=== PATIENT | male | born 1950 | race Caucasian/White ===

== ENCOUNTER → 2018-04-17 14:32 | Outpatient (CLI) | payer MEDICARE, SELFPAY ==
--- NOTE | 2018-04-17 14:35 | ECHOD_ITS ---
Reason For Study: arrhythmia Procedure This was a 2D Doppler, Color Flow transthoracic echocardiogram. The exam was of fair technical quality due to diminished acoustic windows. The study was technically difficult. Exam performed in department. Left Ventricle Normal LV size. Apical false tendon noted. Mild segmental systolic dysfunction (see wall motion). The estimated ejection fraction is 45 %. There is evidence of diastolic dysfunction. Infero-Basal: Severely Hypokinetic. Basal inferoseptal: Severely Hypokinetic. Mid-Inferior: Severely Hypokinetic. Mid-inferoseptal : Severly Hypokinetic. Inferior [place] : Not visualized. Septal [place] : Akinetic. Right Ventricle Normal RV size. ICD or pacer leads identified within the right ventricle. Normal systolic function. Atria The left atrium is moderately enlarged. Normal right atrium. ICD or pacer leads identified within the right atrium. No doppler evidence for ASD. Mitral Valve There is mild mitral annular calcification. Mild papillary muscle dysfunction of the mitral valve. Mild-Moderate (1-2+) mitral valve insufficiency. Tricuspid Valve Normal tricuspid valve. Moderate (2+) tricuspid valve insufficiency. Right ventricular systolic pressure estimated to be 28 mmHg. Aortic Valve Trisinus/trileaflet aortic valve. Mild focal aortic valve thickening. Pulmonic Valve The pulmonic valve is not well visualized. Mild (1+) pulmonic valve insufficiency. Great Vessels Normal sized aortic root. Pericardium/Pleural No pericardial effusion. MMode/2D Measurements & Calculations LVIDd: 5.1 cm IVSd: 0.96 cm Ao root diam: 3.6 cm LVIDs: 3.5 cm LVPWd: 1.1 cm LA dimension: 4.4 cm RVDd: 2.9 cm FS: 30.0 % LAV(MOD-bp): 77.2 ml LA A4 area: 24.8 cm2 RA A4 area: 15.9 cm2 LAV(MOD-bp) Indexed: 38.7 ml/m2 LAV(MOD-sp2): 72.3 ml LAV(MOD-sp4): 80.7 ml Doppler Measurements & Calculations MV E max gibran: 85.1 cm/sec Lat Peak E' Gibran: 10.1 cm/sec Med Peak E' Gibran: 5.0 cm/sec MV A max gibran: 42.2 cm/sec E/E' lat: 8.4 E/E' med: 16.9 MV E/A: 2.0 Ao V2 max: 90.8 cm/sec LV V1 max: 76.0 cm/sec PA V2 max: 67.2 cm/sec Ao max P.3 mmHg LV V1 max P.3 mmHg TR max gibran: 247.3 cm/sec TR max P.5 mmHg Interpretation Summary The study was technically difficult. Mild segmental systolic dysfunction (see wall motion). The estimated ejection fraction is 45 %. Apical false tendon noted. The left atrium is moderately enlarged. There is mild mitral annular calcification. Mild papillary muscle dysfunction of the mitral valve. Mild-Moderate (1-2+) mitral valve insufficiency. Moderate (2+) tricuspid valve insufficiency. Mild focal aortic valve thickening. Mild (1+) pulmonic valve insufficiency. Right ventricular systolic pressure estimated to be 28 mmHg. There is evidence of diastolic dysfunction. ICD or pacer leads identified within the right atrium ICD or pacer leads identified within the right ventricle. Ordering Physician: Trey Richey Referring Physician: Tio Villalba Performed By: Lynne Paniagua, JYOTHI, RVT
== END ==
PROVIDERS: Family Provider Family Medicine; PCP Family Medicine; Visit Provider Internal Medicine Cardiovascular Disease
DX: I49.01 Ventricular fibrillation (principal); I46.9 Cardiac arrest, cause unspecified; I25.10 Atherosclerotic heart disease of native coronary artery without angina pectoris; Z95.810 Presence of automatic (implantable) cardiac defibrillator; Z95.1 Presence of aortocoronary bypass graft
CPT/HCPCS: 93306

== ENCOUNTER → 2018-05-30 17:07 | Outpatient (CLI) | payer MEDICARE, SELFPAY ==
[2018-05-30 18:14] LABS: Anion Gap 6 (5-15); BUN 18 mg/dL (7-18); BUN/Creat Ratio 15.9 RATIO (10-20); Calcium,Total 10.3 mg/dL (8.5-10.1); Chloride 104 mmol/L (98-107); Creatinine, Serum 1.13 mg/dL (0.70-1.30); EST Glomerular Filtration Rate 69 mL/min (>60); Est Glom Filt Rate - Afr Amer 84 mL/min (>60); Glucose 101 mg/dL (74-106); Potassium 4.6 mmol/L (3.5-5.1); Sodium Level 139 mmol/L (136-145)
[2018-05-30 18:23] LABS: BNP,B-Type NATRIURETIC PEPTIDE 582.8 pg/mL (0-100)
== END ==
PROVIDERS: Family Provider Family Medicine; PCP Family Medicine; Visit Provider Nurse Practitioner Family
DX: R06.09 Other forms of dyspnea (principal); I25.10 Atherosclerotic heart disease of native coronary artery without angina pectoris; R00.1 Bradycardia, unspecified; I10 Essential (primary) hypertension; E78.5 Hyperlipidemia, unspecified; Z95.810 Presence of automatic (implantable) cardiac defibrillator; Z95.1 Presence of aortocoronary bypass graft
CPT/HCPCS: 71046; 80048; 83880

== ENCOUNTER → 2018-07-27 12:27 | Outpatient (CLI) | payer MEDICARE, SELFPAY ==
--- NOTE | 2018-07-27 14:39 | PFTCOMP ---
COMPLETE PULMONARY FUNCTION TEST INTERPRETATION Brief HPI: Patient is a 67 year old male, currently under the care of Dr. Richey, who presents to [facility] for complete pulmonary function tests secondary to diagnosis of high risk med use. Respiratory therapist reports good effort and reproducible results. Interpretation: Forced expiration spirometry shows no large airways obstructive ventilatory defect with an FEV1 of 65% predicted. There is a significant bronchodilator response in FVC by strict ATS criteria. However, patient did have significant longer exhalation postbronchodilator. Spirograms are of good quality and plateau normally. The respiratory flow volume loop shows a normal pattern. Lung volumes by body plethysmography show a decreased total lung capacity at 5.12 L, 78% predicted. All other lung volumes are within normal limits. Diffusion capacity by carbon monoxide is decreased at 61% predicted. The airway resistance is elevated. No previous pulmonary function tests were available for review. Impression: Mild restrictive ventilatory defect with a symmetric reduction in diffusing capacity. Patient will need serial monitoring with high risk med use.
--- NOTE | 2018-07-27 14:42 | PFTCOMP_ITS ---
COMPLETE PULMONARY FUNCTION TEST INTERPRETATION Brief HPI: Patient is a 67 year old male, currently under the care of Dr. Richey, who presents to [place] for complete pulmonary function tests secondary to diagnosis of high risk med use. Respiratory therapist reports good effort and reproducible results. Interpretation: Forced expiration spirometry shows no large airways obstructive ventilatory defect with an FEV1 of 65% predicted. There is a significant bronchodilator response in FVC by strict ATS criteria. However, patient did have significant longer exhalation postbronchodilator. Spirograms are of good quality and plateau normally. The respiratory flow volume loop shows a normal pattern. Lung volumes by body plethysmography show a decreased total lung capacity at 5.12 L, 78% predicted. All other lung volumes are within normal limits. Diffusion capacity by carbon monoxide is decreased at 61% predicted. The airway resistance is elevated. No previous pulmonary function tests were available for review. Impression: Mild restrictive ventilatory defect with a symmetric reduction in diffusing capacity. Patient will need serial monitoring with high risk med use.
== END ==
PROVIDERS: Family Provider Family Medicine; PCP Family Medicine; Referring Provider Internal Medicine Cardiovascular Disease; Visit Provider Internal Medicine Cardiovascular Disease
DX: Z79.899 Other long term (current) drug therapy (principal)
CPT/HCPCS: 94060; 94726; 94729

== ENCOUNTER → 2019-04-09 | Outpatient (CLI) | payer MEDICARE, SELFPAY ==
[2019-03-26 10:50] VITALS: BMI 29.3
--- NOTE | 2019-04-09 10:28 | ECHOCS_ITS ---
Reason For Study: CHF Procedure This was a 2D Doppler, Color Flow transthoracic echocardiogram. The study was technically difficult. Contrast injection was performed. Exam performed in department. Left Ventricle Normal LV size. Mild segmental systolic dysfunction (see wall motion). The estimated ejection fraction is 45 %. Diastolic function is indeterminate. Infero-Basal: Severely Hypokinetic. Mid- Inferior: Severely Hypokinetic. Mid-inferoseptal : Severly Hypokinetic. Mid-anteroseptal : Hypokinetic. Anterior [place] : Hypokinetic. Inferior [place] : Hypokinetic. Septal [place] : Akinetic. Right Ventricle Normal RV size. ICD or pacer leads identified within the right ventricle. Normal systolic function. Atria The left atrium is mildly enlarged. Normal right atrium. ICD or pacer leads identified within the right atrium. No doppler evidence for ASD. Mitral Valve There is mild mitral annular calcification. Mild diffuse mitral valve thickening. Mild papillary muscle dysfunction of the mitral valve. Mild-Moderate (1-2+) mitral valve insufficiency. Tricuspid Valve Mild diffuse thickening of the tricuspid valve. Moderate (2+) tricuspid valve insufficiency. Right ventricular systolic pressure estimated to be 29 mmHg. Aortic Valve Trisinus/trileaflet aortic valve. Mild focal aortic valve thickening. Pulmonic Valve The pulmonic valve is not well visualized. Mild (1+) pulmonic valve insufficiency. Great Vessels Mildly dilated aortic root. Pericardium/Pleural No pericardial effusion. Medication 22 gauge I.V. with prn adaptor inserted into right arm. Diluted definity 3ml given slow IV push to enhance endocardial definition. MMode/2D Measurements & Calculations LVIDd: 5.5 cm IVSd: 0.83 cm Ao root diam: 4.2 cm LVIDs: 4.1 cm LVPWd: 0.94 cm RVDd: 4.2 cm FS: 25.7 % LAV(MOD-bp): 77.1 ml LVAd ap4: 40.9 cm2 SV(MOD-sp4): 70.4 ml LAV(MOD-bp) Indexed: 37.3 ml/m2 EDV(MOD-sp4): 152.5 ml LAV(MOD-sp2): 85.6 ml EDV(sp4-el): 162.2 ml LAV(MOD-sp4): 63.8 ml LVAs ap4: 28.3 cm2 ESV(MOD-sp4): 82.1 ml ESV(sp4-el): 85.0 ml EF(MOD-sp4): 46.2 % EF(sp4-el): 47.6 % SV(sp4-el): 77.2 ml LA A4 area: 22.1 cm2 LA dimension(2D): 4.2 cm RA A4 area: 13.9 cm2 Time Measurements MV dec time: 0.22 sec Doppler Measurements & Calculations MV E max gibran: 69.6 cm/sec Lat Peak E' Gibran: 11.1 cm/sec Med Peak E' Gibran: 5.4 cm/sec MV A max gibran: 32.1 cm/sec E/E' lat: 6.3 E/E' med: 13.0 MV E/A: 2.2 Ao V2 max: 106.2 cm/sec LV V1 max: 87.3 cm/sec PA V2 max: 74.7 cm/sec Ao max P.5 mmHg LV V1 max P.0 mmHg PI end-d gibran: 95.4 cm/sec TR max gibran: 256.0 cm/sec TR max P.2 mmHg Interpretation Summary The study was technically difficult. Contrast injection was performed. Mild segmental systolic dysfunction (see wall motion). The estimated ejection fraction is 45 %. The left atrium is mildly enlarged. There is mild mitral annular calcification. Mild diffuse mitral valve thickening. Mild papillary muscle dysfunction of the mitral valve. Mild-Moderate (1-2+) mitral valve insufficiency. Mild diffuse thickening of the tricuspid valve. Moderate (2+) tricuspid valve insufficiency. Mild focal aortic valve thickening. Mild (1+) pulmonic valve insufficiency. Mildly dilated aortic root. Right ventricular systolic pressure estimated to be 29 mmHg. Diastolic function is indeterminate. ICD or pacer leads identified within the right atrium ICD or pacer leads identified within the right ventricle. Ordering Physician: Lucia Montoya/Trey Richey Referring Physician: AMANDA GUZMAN Performed By: Tiffanie Pastrana, JYOTHI, RVT
== END | disposition home or self-care (01) ==
LOC: CVS 10:27
PROVIDERS: Family Provider Family Medicine; PCP Family Medicine; Referring Provider Physician Assistant Medical; Visit Provider Physician Assistant Medical
DX: I25.10 Atherosclerotic heart disease of native coronary artery without angina pectoris (principal); I10 Essential (primary) hypertension; E78.5 Hyperlipidemia, unspecified; Z95.810 Presence of automatic (implantable) cardiac defibrillator
CPT/HCPCS: 93306; Q9957; A4216; C8929

== ENCOUNTER → 2019-04-19 13:40 | Outpatient (CLI) | payer MEDICARE, SELFPAY ==
[2019-03-26 10:50] VITALS: BMI 29.3
--- NOTE | 2019-04-19 13:41 | CT_ITS ---
HISTORY:Atherosclerotic disease, evaluate thoracic aorta. Hx SD, CABG, pacemaker, former smoker, hypertension. TECHNIQUE:CTA Chest W/ Contrast A CT of the chest was performed following the administration of 100mLml Isovue 370 Thin axial reconstructed images were performed through the pulmonary vasculature as per the routine pulmonary embolus protocol.MIP and mutiplanar reconstructions A dose optimization technique was used during the scan # of images including paperwork:861 Comparison: none FINDINGS: No aneurysm or dissection. There is no calcific plaque in the aorta. Pulmary arteries: No evidence of pulmonary emboli The heart mildly enlarged. Pacemaker overlying the left hemithorax with a lead in the right atrium. CABG No pericardial effusion. No pleural effusion. No axillary or mediastinal lymphadenopathy is identified. The lungs are clear. Pneumpothorax: none The trachea and central airways appear patent . Limited views of the upper abdomen unremarkable Midline sternotomy wires. No acute osseous malady. CT/Chest WITH Contrast IMPRESSION: There is no evidence of aneurysm or dissection. Mild cardiomegaly Pacemaker CABG Individualized dose optimization techniques were used for this CT. at 2128 Reported and signed by: Dahlia Sandoval DO Electronically Signed: Dahlia Sandoval DO at 21:27 EDT Tel , Service support ,
[2019-04-19 14:00] LABS: CREATININE FINGERSTICK 1.1 mg/dL (0.70-1.30); EGFR FINGERSTICK > 60.0000 mL/min (>60)
== END ==
PROVIDERS: Family Provider Family Medicine; PCP Family Medicine; Referring Provider Internal Medicine Cardiovascular Disease; Visit Provider Internal Medicine Cardiovascular Disease
DX: I25.10 Atherosclerotic heart disease of native coronary artery without angina pectoris (principal)
CPT/HCPCS: 71260; Q9967

== ENCOUNTER → 2019-07-04 14:33 | Outpatient (CLI) | payer MEDICARE, SELFPAY ==
[2019-07-04 13:12] VITALS: BMI 30.7
[2019-07-04 16:56] LABS: BNP,B-Type NATRIURETIC PEPTIDE 285.8 pg/mL (0-100)
[2019-07-04 17:03] LABS: Anion Gap 7 (5-15); BUN 32 mg/dL (7-18); BUN/Creat Ratio 19.4 RATIO (10-20); Calcium,Total 9.5 mg/dL (8.5-10.1); Chloride 97 mmol/L (98-107); Creatinine, Serum 1.65 mg/dL (0.70-1.30); EST Glomerular Filtration Rate 45 mL/min (>60); Est Glom Filt Rate - Afr Amer 54 mL/min (>60); Glucose 84 mg/dL (74-106); Potassium 3.6 mmol/L (3.5-5.1); Sodium Level 137 mmol/L (136-145)
== END ==
PROVIDERS: Family Provider Family Medicine; PCP Family Medicine; Referring Provider Nurse Practitioner Family; Visit Provider Nurse Practitioner Family
DX: R06.09 Other forms of dyspnea (principal); R06.01 Orthopnea
CPT/HCPCS: 80048; 83880

== ENCOUNTER → 2019-07-15 08:08 | Outpatient (CLI) | payer MEDICARE, SELFPAY ==
[2019-07-04 13:12] VITALS: BMI 30.7
[2019-07-15 09:55] LABS: Anion Gap 5 (5-15); BUN 20 mg/dL (7-18); Calcium,Total 9.7 mg/dL (8.5-10.1); Chloride 103 mmol/L (98-107); Creatinine, Serum 1.25 mg/dL (0.70-1.30); EST Glomerular Filtration Rate 61 mL/min (>60); Est Glom Filt Rate - Afr Amer 74 mL/min (>60); Glucose 84 mg/dL (74-106); Potassium 4.2 mmol/L (3.5-5.1); Sodium Level 141 mmol/L (136-145)
[2019-07-15 09:56] LABS: AST(SGOT) 22 U/L (15-37); Alanine Aminotransfer ALT/SGPT 37 U/L (16-61); Albumin, Serum 3.6 g/dL (3.2-5.0); Alkaline Phosphatase 76 U/L (45-117); Bilirubin, Direct 0.12 mg/dL (0.00-0.30); Cholesterol 133 mg/dL (200); Globulin 3.5 g/dL (2.2-4.2); High Density Lipoprotein 51 mg/dL; Protein, Total 7.1 g/dL (6.4-8.2); Triglycerides 185 mg/dL; Very Low Density Lipoprotein 37 mg/dL (5-40)
== END ==
PROVIDERS: Family Provider Family Medicine; PCP Family Medicine; Referring Provider Nurse Practitioner Family; Visit Provider Nurse Practitioner Family
DX: E78.5 Hyperlipidemia, unspecified (principal); I25.10 Atherosclerotic heart disease of native coronary artery without angina pectoris; I25.5 Ischemic cardiomyopathy; I34.0 Nonrheumatic mitral (valve) insufficiency
CPT/HCPCS: 36415; 80048; 80061; 80076

== ENCOUNTER → 2019-08-27 14:27 | Outpatient (CLI) | payer MEDICARE, SELFPAY ==
[2019-08-27 13:11] VITALS: BMI 29.9
[2019-08-27 15:27] LABS: Anion Gap 7 (5-15); BUN 24 mg/dL (7-18); BUN/Creat Ratio 15.1 RATIO (10-20); Chloride 97 mmol/L (98-107); Creatinine, Serum 1.59 mg/dL (0.70-1.30); EST Glomerular Filtration Rate 46 mL/min (>60); Est Glom Filt Rate - Afr Amer 56 mL/min (>60); Glucose 101 mg/dL (74-106); Potassium 3.3 mmol/L (3.5-5.1); Sodium Level 135 mmol/L (136-145)
[2019-08-27 15:35] LABS: BNP,B-Type NATRIURETIC PEPTIDE 123.1 pg/mL (0-100)
== END ==
PROVIDERS: Family Provider Family Medicine; PCP Family Medicine; Referring Provider Nurse Practitioner Family; Visit Provider Nurse Practitioner Family
DX: I25.5 Ischemic cardiomyopathy (principal); I10 Essential (primary) hypertension; I25.10 Atherosclerotic heart disease of native coronary artery without angina pectoris; Z95.810 Presence of automatic (implantable) cardiac defibrillator; R06.09 Other forms of dyspnea
CPT/HCPCS: 36415; 80048; 83880

== ENCOUNTER → 2019-09-16 11:19 | Outpatient (CLI) | payer MEDICARE, SELFPAY ==
[2019-08-27 13:11] VITALS: BMI 29.9
[2019-09-16 12:53] LABS: Anion Gap 4 (5-15); BUN 20 mg/dL (7-18); BUN/Creat Ratio 14.4 RATIO (10-20); Chloride 92 mmol/L (98-107); Creatinine, Serum 1.39 mg/dL (0.70-1.30); EST Glomerular Filtration Rate 54 mL/min (>60); Est Glom Filt Rate - Afr Amer 66 mL/min (>60); Glucose 112 mg/dL (74-106); Potassium 3.4 mmol/L (3.5-5.1); Sodium Level 135 mmol/L (136-145)
[2019-09-16 12:54] LABS: T4 Free Direct 1.25 ng/dL (0.76-1.46); Thyroid Stim Hormone (TSH) 4.45 uIU/mL (0.358-3.74)
== END ==
PROVIDERS: Nurse Practitioner Family; Family Provider Family Medicine; PCP Family Medicine; Referring Provider Internal Medicine Cardiovascular Disease; Visit Provider Internal Medicine Cardiovascular Disease
DX: I25.10 Atherosclerotic heart disease of native coronary artery without angina pectoris (principal); I10 Essential (primary) hypertension; I25.5 Ischemic cardiomyopathy; Z95.1 Presence of aortocoronary bypass graft; E78.5 Hyperlipidemia, unspecified; R06.09 Other forms of dyspnea; Z79.899 Other long term (current) drug therapy; I25.9 Chronic ischemic heart disease, unspecified
CPT/HCPCS: 36415; 80048; 84439; 84443

== ENCOUNTER → 2019-09-24 06:43 | Outpatient (CLI) | payer MEDICARE, SELFPAY ==
[2019-08-27 13:11] VITALS: BMI 29.9
--- NOTE | 2019-09-24 11:09 | STRESSREP ---
Stress Test Report Date: 09-24-19 Procedure: Pharmacologic stress nuclear imaging study Indications: Shortness of breath/dyspnea on exertion; CAD; CABG; cardiomyopathy; ICD Consent: Per the patient Procedure: The patient underwent pharmacologic (Regadenoson) evaluation with a peak heart rate of 75 beats per minute (48 %predicted maximal heart rate) and a peak blood pressure of 122/70 mmHg. The baseline ECG demonstrated normal sinus rhythm; right bundle branch block. The peak pharmacologic ECG demonstrated continued right bundle branch block. There were no cardiac dysrhythmias pretest, during pharmacologic infusion, or recovery. There was no complaint of chest discomfort during pharmacologic infusion or recovery. The examination was discontinued secondary to completion of protocol. Impression: 1. Pharmacologic (Regadenoson) evaluation 2. Peak pharmacologic ECG with continued right bundle branch block. 3. There were no cardiac dysrhythmias pretest, during pharmacologic infusion, or recovery. 4. Nuclear images pending Myocardial perfusion imaging study: Technique: The patient was injected with 14.7 millicuries of technetium 99m Cardiolite and subsequently rest SPECT Cardiolite nuclear imaging was obtained in the horizontal long, vertical long, and short axis views. The patient underwent pharmacologic (Regadenoson) evaluation with a peak heart rate of 75 beats per minute (48 % percent predicted maximal heart rate) and a peak blood pressure of 122/70 mmHg. The patient was injected with 44.2 millicuries of technetium 99m Cardiolite and subsequently stress SPECT Cardiolite nuclear imaging was obtained in the horizontal long, vertical long, and short axis views. A gated Cardiolite study at peak stress was obtained. Interpretation: Rest and stress SPECT Cardiolite nuclear imaging status post realignment, normalization, and attenuation correction demonstrate the appearance of diminished tracer uptake in portions of the mid towards distal anterior, anteroapical, and inferoapical segments without significant change between rest and stress. There is diminished end systolic thickening and brightening in the aforementioned areas. The gated Cardiolite study demonstrates diminished myocardial thickening and inward wall motion. The reported LVEF is 59 %. Impression: 1. Rest and stress SPECT Cardiolite nuclear imaging demonstrate myocardial perfusion changes appearing compatible with an area of previous myocardial injury/infarction with no myocardial perfusion changes considered diagnostic for associated stress-induced myocardial ischemia. 2. The gated Cardiolite study reports an LVEF of 59 %. This note was generated with Dragon dictation software. It may contain incorrect words, spelling, and punctuation that were not noted in checking the note before signing.
--- NOTE | 2019-09-25 06:59 | PFT ---
INTRODUCTION: The patient is a 68-year-old male that presents for pulmonary function studies secondary to a diagnosis of dyspnea. Respiratory therapy reports good patient effort. Bronchodilators were used during testing. INTERPRETATION: Forced expiration spirometry demonstrates the presence of a moderately severe large airways obstructive ventilatory defect. There was no significant response to aerosolized bronchodilators, based upon strict ATS criteria. Spirograms are of poor quality and do not plateau indicating slow emptying of the lungs. Body plethysmography was performed and reveals a decreased TLC to 4.68 L, 71% of predicted, indicative of a mild restrictive ventilatory impairment. Diffusing capacity by single breath CO is reduced at 53% of predicted. When compared to previous pulmonary function studies from 2018, there has been a 17% reduction in FEV1 along with a 9% reduction in total lung capacity. IMPRESSION: Irreversible moderately severe mixed ventilatory defect with reduction in diffusing capacity.
== END ==
PROVIDERS: Family Provider Family Medicine; PCP Family Medicine; Referring Provider Nurse Practitioner Family; Visit Provider Nurse Practitioner Family
DX: I25.10 Atherosclerotic heart disease of native coronary artery without angina pectoris (principal); I25.5 Ischemic cardiomyopathy; I10 Essential (primary) hypertension; E78.5 Hyperlipidemia, unspecified; R06.09 Other forms of dyspnea; Z95.810 Presence of automatic (implantable) cardiac defibrillator
CPT/HCPCS: 78452; 93017; 94060; 94726; 94729; A9500; A4216; J2785

== ENCOUNTER → 2020-06-05 14:18 | Outpatient (CLI) | payer MEDICARE, BC, SELFPAY ==
[2020-05-18 13:33] VITALS: BMI 30.5
--- NOTE | 2020-06-05 14:20 | CT_ITS ---
STUDY: CT CHEST WITHOUT CONTRAST REASON FOR EXAM: Male, 69 years old. Dyspnea, stenosis d/t prior trach and reversal, PR, CABG, pacemaker, CVA, hypertension. RADIATION DOSAGE (If Supplied By Facility): CTDIvol = ( 20.16 ) mGy, DLP = ( 616.10 ) mGycm TECHNIQUE: Transaxial imaging was performed without the administration of intravenous contrast material. Multiplanar coronal and sagittal images were reformatted. Individualized dose optimization techniques were used for this CT. COMPARISON: Comparison is made with prior study dated 04/19/2019. FINDINGS: A left-sided pacemaker device is seen. There is narrowing of the trachea. It measures 9.1 mm in transverse dimension. Mild degree of increased linear markings at the lung bases suggestive of mild linear scarring. This is essentially unchanged. There is no demonstrated pleural abnormality. Sternal cerclage wires and vascular clips are present from a prior sternotomy and coronary artery bypass graft procedure (CABG). There are calcifications of the coronary arteries. Cardiomegaly. There are multiple small lymph nodes within the mediastinum, which are normal in size and morphology most compatible with reactive lymph hyperplasia. Normal hilar regions. Normal unenhanced pulmonary arteries. Normal aorta arch and descending thoracic aorta. There are multi-level degenerative changes of the thoracic spine. There is no demonstrated abnormality of the visualized upper abdomen. CT/Chest without Contrast IMPRESSION: Narrowing of the trachea. It measures 9.1 mm in transverse dimension at its narrowest point. Stable mild bibasilar scarring. Electronically Signed: Mic Corona, at 15:14 EDT , Service support ,
--- NOTE | 2020-06-05 14:20 | CT_ITS ---
INDICATION: Dyspnea, stenosis d/t prior trach and reversal, [place], CABG, pacemaker, CVA, hypertension. EXAMINATION: CT NECK - CT Neck Chest W/O Contrast Injection TECHNIQUE: Multiple axial images were obtained of the neck. A radiation dose optimization technique was used for this scan. IV Contrast dosage and agent: None. COMPARISON: None. FINDINGS: NASOPHARYNX: Unremarkable. SUPRAHYOID NECK: Unremarkable oropharynx, oral cavity, parapharyngeal space, and retropharyngeal space. INFRAHYOID NECK: Narrowing of the mid-distal portion of the trachea with a transverse dimension of 9.1 mm. THYROID: Mild degree of heterogeneous appearance of the thyroid although no definite lesion is seen. SALIVARY GLANDS: Unremarkable. LYMPH NODES: No cervical or supraclavicular lymphadenopathy. VASCULAR STRUCTURES: Calcified plaques of the carotid bifurcations. VISUALIZED PORTIONS OF THE ORBITS, PARANASAL SINUSES, MASTOID AIR CELLS AND SKULL BASE: Unremarkable. BONES: Straightening of the normal cervical lordosis. Moderate degree of disc space narrowing at the C5-C6 and C6-C7 levels. THORACIC INLET: Clear lung apices. CT/Soft Tissue Neck without Contr IMPRESSION: Narrowing of the mid-distal portion of the tracheal transverse dimension of 9.1 mm. Electronically Signed: Mic Corona, at 15:22 EDT , Service support ,
== END ==
PROVIDERS: PCP Family Medicine; Referring Provider Internal Medicine Pulmonary Disease; Visit Provider Internal Medicine Pulmonary Disease
DX: R06.00 Dyspnea, unspecified (principal); J95.5 Postprocedural subglottic stenosis
CPT/HCPCS: 70490; 71250

== ENCOUNTER 2020-06-17 10:35 | Day surgery (SDC) | payer MEDICARE, BC, SELFPAY ==
[2020-05-18 13:33] VITALS: BMI 30.5
[2020-06-15 10:55] VITALS: BMI 30.5
[2020-06-17] VITALS (10 sets, daily range): BP systolic 126–142; BP diastolic 67–80; PULSE 54–59; RESP 16–22; TEMP 36.4–36.9; O2SAT 93–99; BMI 29.9
[2020-06-17] MEDS: Lactated Ringers 1,000 ML 75 ML IV (11:14)
[2020-06-17] MEDS: Phenylephrine 0.25% 15 ML NASAL.SRY 15 SPRAY NASAL (12:41)
[2020-06-17] MEDS: Lidocaine 2% Jelly 1 APPLIC Tube (12:42)
--- NOTE | 2020-06-17 12:48 | OP.BRONCH_ITS ---
Patient Name: Tio Kinney Procedure Date: 06/17/2020 11:38 AM Date of : 1950 Age: 69 Procedure: Bronchoscopy Indications: Upper airway obstruction, Abnormal CT scan of chest, Stridor Providers: Tio Clark MD Referring MD: Tio Villalba Medicines: Propofol total dose mg IV Complications: No immediate complications Procedure: Pre-Anesthesia Assessment: - A History and Physical has been performed. Patient meds and allergies have been reviewed. The risks and benefits of the procedure and the sedation options and risks were discussed with the patient. All questions were answered and informed consent was obtained. Patient identification and proposed procedure were verified prior to the procedure by the nurse in the pre-procedure area. Mental Status Examination: alert and oriented. Airway Examination: normal oropharyngeal airway. Respiratory Examination: clear to auscultation. CV Examination: normal and RRR, no murmurs, no S3 or S4. 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 After reviewing the risks and benefits, the patient was deemed in satisfactory condition to undergo the procedure. The anesthesia plan was to use monitored anesthesia care (MAC). Immediately prior to administration of medications, the patient was re-assessed for adequacy to receive sedatives. The heart rate, respiratory rate, oxygen saturations, blood pressure, adequacy of pulmonary ventilation, and response to care were monitored throughout the procedure. The physical status of the patient was re-assessed after the procedure. After I obtained informed consent, the scope was passed under direct vision. Throughout the procedure, the patient's blood pressure, pulse, and oxygen saturations were monitored continuously. The bronchoscope was introduced through the left nostril and advanced to the tracheobronchial tree of both lungs. The procedure was accomplished without difficulty. 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 The lesion has a benign appearance. The airway lumen is nearly occluded. The lesion was successfully traversed. 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 The lesion has a benign appearance. - No specimens collected. Procedure Code(s): --- Professional --- 00291, Bronchoscopy, rigid or flexible, including fluoroscopic guidance, when performed; diagnostic, with cell washing, when performed (separate procedure) Diagnosis Code(s): --- Professional --- J98.8, Other specified respiratory disorders J98.4, Other disorders of lung R06.1, Stridor R93.8, Abnormal findings on diagnostic imaging of other specified body structures CPT copyright 2017 [employer]. All rights reserved. The codes documented in this report are preliminary and upon hot plate press operator review may be revised to meet current compliance requirements. MD Tio Marino MD 06/17/2020 12:48:33 PM This report has been signed electronically. Number of Addenda: 0 Note Initiated On: 06/17/2020 11:38 AM
== END 2020-06-17 14:42 | disposition home or self-care (01) ==
LOC: EN 10:35 → AC 10:35
PROVIDERS: PCP Family Medicine; Referring Provider Family Medicine; Visit Provider Internal Medicine Pulmonary Disease
PROC: 0BJ08ZZ Inspection of Tracheobronchial Tree, Via Natural or Artificial Opening Endoscopic (ICD-10-PCS; CPT 31622; principal; 2020-06-17 11:55)
DX: J98.8 Other specified respiratory disorders (principal); J95.5 Postprocedural subglottic stenosis; J98.4 Other disorders of lung; R06.1 Stridor; I27.20 Pulmonary hypertension, unspecified; J90 Pleural effusion, not elsewhere classified; I10 Essential (primary) hypertension; E78.5 Hyperlipidemia, unspecified; I25.10 Atherosclerotic heart disease of native coronary artery without angina pectoris; K21.9 Gastro-esophageal reflux disease without esophagitis; Z87.891 Personal history of nicotine dependence; Z86.73 Personal history of transient ischemic attack (TIA), and cerebral infarction without residual deficits
CPT/HCPCS: 31622; 87635; C9803; J7120; J2405; U0003

== ENCOUNTER → 2020-12-30 10:57 | Outpatient (CLI) | payer MEDICARE, BC, SELFPAY ==
[2020-12-30 10:05] VITALS: BMI 31.4
[2020-12-30 11:54] LABS: Absolute Lymphocyte Count 1.12 X10^3/uL (0.83-4.51); Absolute Neutrophil Count 7.1 X10^3/uL (2.0-7.7); Basophil# 0.05 X10^3/uL; Basophil% 0.5 % (0-1); Eosinophil# 0.09 X10^3/uL; Hematocrit 46.9 % (40-54); Hemoglobin 15.3 g/dL (13.0-16.5); Lymphocyte # 1.12 X10^3/ul (4.0); Mean Corp Hgb Conc 32.6 g/dL (32-36); Mean Corpuscular Hgb 32.5 pg (27.0-32.0); Mean Corpuscular Volume 99.6 fL (80-94); Mean Platelet Vol. 9.7 fl (6.2-12.0); Monocyte# 0.93 X10^3/uL; NRBC Flagged by Analyzer 0 % (0-5); Neutrophil # 7.09 X10^3/uL (2.7-7.7); Neutrophil % 75.9 % (47-70); Platelet Count 286 K/mm3 (150-450); RBC Distribution Width CV 15.6 % (11.6-14.6); Red Blood Count 4.71 M/mm3 (4.6-6.2); White Blood Count 9.3 K/mm3 (4.4-11.0)
[2020-12-30 12:38] LABS: AST(SGOT) 22 U/L (15-37); Alanine Aminotransfer ALT/SGPT 26 U/L (16-61); Albumin, Serum 3.8 g/dL (3.2-5.0); Alkaline Phosphatase 85 U/L (45-117); Anion Gap 4 (5-15); BUN 22 mg/dL (7-18); BUN/Creat Ratio 17.6 RATIO (10-20); Bilirubin, Direct 0.18 mg/dL (0.00-0.30); Calcium,Total 9.5 mg/dL (8.5-10.1); Chloride 99 mmol/L (98-107); Creatinine, Serum 1.25 mg/dL (0.70-1.30); EST Glomerular Filtration Rate 61 mL/min (>60); Est Glom Filt Rate - Afr Amer 74 mL/min (>60); Globulin 3.9 g/dL (2.2-4.2); Glucose 92 mg/dL (74-106); Magnesium 2.3 mg/dL (1.6-2.6); Potassium 3.8 mmol/L (3.5-5.1); Protein, Total 7.7 g/dL (6.4-8.2); Sodium Level 138 mmol/L (136-145); T4 Free Direct 0.95 ng/dL (0.76-1.46)
== END ==
PROVIDERS: PCP Family Medicine; Referring Provider Nurse Practitioner Family; Visit Provider Nurse Practitioner Family
DX: I25.10 Atherosclerotic heart disease of native coronary artery without angina pectoris (principal); I34.0 Nonrheumatic mitral (valve) insufficiency; I25.5 Ischemic cardiomyopathy; I10 Essential (primary) hypertension; E78.5 Hyperlipidemia, unspecified; Z95.1 Presence of aortocoronary bypass graft; Z95.810 Presence of automatic (implantable) cardiac defibrillator; Z79.899 Other long term (current) drug therapy
CPT/HCPCS: 36415; 80048; 80076; 83735; 84439; 84443; 85025

== ENCOUNTER → 2021-01-12 07:11 | Outpatient (CLI) | payer MEDICARE, BC, SELFPAY ==
[2020-12-30 10:05] VITALS: BMI 31.4
--- NOTE | 2021-01-12 07:15 | ECHOCS_ITS ---
Reason For Study: PRE OP EVAL, HX CHF Procedure This was a 2D Doppler, Color Flow transthoracic echocardiogram. The study was technically difficult. Due to patient coughing when lying down. Contrast injection was performed. Exam performed in department. Left Ventricle Normal LV size. Mild segmental systolic dysfunction (see wall motion). The estimated ejection fraction is 50 %. There is evidence of diastolic dysfunction. Basal inferoseptal: Hypokinetic. Basal anteroseptal: Hypokinetic. Mid-inferoseptal : Hypokinetic. Mid-anteroseptal : Hypokinetic. Lateral [place] : Hypokinetic. Septal [place] : Akinetic. Right Ventricle Normal RV size. ICD or pacer leads identified within the right ventricle. Normal systolic function. Atria The left atrium is mildly enlarged. Normal right atrium. ICD or pacer leads identified within the right atrium. No doppler evidence for ASD. Mitral Valve There is mild mitral annular calcification. Normal mitral valve. Mild-Moderate (1-2+) mitral valve insufficiency. Tricuspid Valve Normal tricuspid valve. Trivial tricuspid valve insufficiency. Unable to estimate RV systolic pressure/pulmonary artery pressure due to technically difficult study. Aortic Valve Trisinus/trileaflet aortic valve. Normal aortic valve. Pulmonic Valve The pulmonic valve is not well visualized. Trivial pulmonic valve insufficiency. Great Vessels Borderline enlarged aortic root. Pericardium/Pleural No pericardial effusion. Medication Diluted definity 4.0ml given slow IV push to enhance endocardial definition. MMode/2D Measurements & Calculations LVIDd: 5.5 cm IVSd: 0.99 cm Ao root diam: 3.7 cm LVIDs: 4.1 cm LVPWd: 0.83 cm RVDd: 3.0 cm FS: 25.6 % LAV(MOD-bp): 79.7 ml LVAd ap4: 39.0 cm2 SV(MOD-sp4): 70.3 ml LAV(MOD-bp) Indexed: 37.6 ml/m2 LVLd ap4: 9.0 cm LAV(MOD-sp2): 79.4 ml EDV(MOD-sp4): 137.2 ml LAV(MOD-sp4): 79.4 ml EDV(sp4-el): 144.5 ml LVAs ap4: 25.8 cm2 LVLs ap4: 8.4 cm ESV(MOD-sp4): 66.9 ml ESV(sp4-el): 67.5 ml EF(MOD-sp4): 51.2 % EF(sp4-el): 53.3 % SV(sp4-el): 77.0 ml LA A4 area: 25.0 cm2 LA dimension(2D): 4.4 cm RA A4 area: 15.3 cm2 Time Measurements MV dec time: 0.23 sec Doppler Measurements & Calculations MV E max gibran: 65.3 cm/sec Lat Peak E' Gibran: 8.3 cm/sec Med Peak E' Gibran: 3.9 cm/sec MV A max gibran: 64.2 cm/sec E/E' lat: 7.8 E/E' med: 16.6 MV E/A: 1.0 Ao V2 max: 125.4 cm/sec LV V1 max: 105.8 cm/sec PA V2 max: 91.3 cm/sec Ao max P.3 mmHg LV V1 max P.5 mmHg ECHO/Echo Complete W/ Contrast Interpretation Summary The study was technically difficult. Contrast injection was performed. Mild segmental systolic dysfunction (see wall motion). The estimated ejection fraction is 50 %. The left atrium is mildly enlarged. There is mild mitral annular calcification. Mild-Moderate (1-2+) mitral valve insufficiency. Trivial tricuspid valve insufficiency. Trivial pulmonic valve insufficiency. Borderline enlarged aortic root. Unable to estimate RV systolic pressure/pulmonary artery pressure due to techni emmie difficult study. There is evidence of diastolic dysfunction. ICD or pacer leads identified within the right atrium ICD or pacer leads identified within the right ventricle. Ordering Physician: David Tabares Referring Physician: Tio Villalba Performed By: Lynne Paniagua RDCS, RVT
--- NOTE | 2021-01-12 19:46 | STRESSREP ---
Stress Test Report Date: 01-12-2021 Procedure: Pharmacologic stress nuclear imaging study Indications: CAD status post CABG, cardiomyopathy, ICD, preoperative evaluation Consent: Per the patient Procedure: The patient underwent pharmacologic (Regadenoson 0.4mg ) evaluation with a peak heart rate of 76 beats per minute (50% predicted maximal heart rate) and a peak blood pressure of 155/90 mmHg. The baseline ECG demonstrated sinus rhythm; left bundle branch block. The peak pharmacologic ECG demonstrated no obvious ECG changes. There were no cardiac dysrhythmias pretest, during pharmacologic infusion, or recovery. There was no complaint of chest discomfort during pharmacologic infusion or recovery. The examination was discontinued secondary to completion of protocol. Impression: 1. Pharmacologic (Regadenoson) evaluation 2. Peak pharmacologic ECG with no obvious ECG changes. 3. There were no cardiac dysrhythmias pretest, during pharmacologic infusion, or recovery. 4. Nuclear images pending Myocardial perfusion imaging study: Technique: The patient was injected with 14.3 millicuries of technetium 99m Cardiolite and subsequently rest SPECT Cardiolite nuclear imaging was obtained in the horizontal long, vertical long, and short axis views. The patient underwent pharmacologic (Regadenoson) evaluation with a peak heart rate of 76 beats per minute (50% percent predicted maximal heart rate) and a peak blood pressure of 155/90 mmHg. The patient was injected with 44.3 millicuries of technetium 99m Cardiolite and subsequently stress SPECT Cardiolite nuclear imaging was obtained in the horizontal long, vertical long, and short axis views. A gated Cardiolite study at peak stress was obtained. Interpretation: Rest and stress SPECT Cardiolite nuclear imaging status post realignment, normalization, and attenuation correction demonstrate the appearance of diminished absence of myocardial perfusion/tracer uptake in portions of the distal anterior, distal anteroseptal, and anteroapical segments without significant change between rest and stress. There is diminished end systolic thickening and brightening in the aforementioned areas. The gated Cardiolite study demonstrates diminished myocardial thickening/inward wall motion. The reported LVEF is 5==1%. Impression: 1. Rest and stress SPECT current nuclear imaging demonstrate myocardial perfusion changes appearing compatible with an area of previous myocardial injury/infarction in portions of the distal anterior, distal anteroseptal, and anteroapical segments with no myocardial perfusion changes considered diagnostic for associated stress-induced myocardial ischemia. 2. The gated Cardiolite study reports an LVEF of 51%. This note was generated with Sponduuation software. It may contain incorrect words, spelling, and punctuation that were not noted in checking the note before signing.
== END ==
PROVIDERS: PCP Family Medicine; Visit Provider Nurse Practitioner Family
DX: I25.10 Atherosclerotic heart disease of native coronary artery without angina pectoris (principal); I25.5 Ischemic cardiomyopathy; I34.0 Nonrheumatic mitral (valve) insufficiency; Z95.1 Presence of aortocoronary bypass graft; Z01.810 Encounter for preprocedural cardiovascular examination
CPT/HCPCS: 78452; 93017; 93306; A9500; Q9957; A4216; C8929; J2785

== ENCOUNTER → 2021-08-10 10:26 | Outpatient (CLI) | payer MEDICARE, BC, SELFPAY ==
--- NOTE | 2021-08-10 10:30 | RAD_ITS ---
STUDY: X-RAY CHEST REASON FOR EXAM: Male, 70 years old. Chest pain/pressure TECHNIQUE: PA and lateral views of the chest. COMPARISON: 05/30/2018 FINDINGS: Stable appearance of a left subclavian pacemaker, stable elevation of the right hemidiaphragm The lungs are clear and expanded. There is no demonstrated pleural abnormality. There are calcifications of the coronary arteries. Normal mediastinum and renny. Normal visualized pulmonary arteries. Normal visualized aortic arch and descending thoracic aorta. There are diffuse degenerative changes of the visualized thoracic spine. Normal visualized ribs, clavicles, and shoulders. There is no demonstrated abnormality of the visualized soft tissue structures of the upper abdomen. RAD/Chest PA and Lateral IMPRESSION: No acute pulmonary process Electronically Signed: Edilberto Valdez MD at 11:01 EST , Service support ,
[2021-08-10 11:40] LABS: Anion Gap 4 (5-15); BNP,B-Type NATRIURETIC PEPTIDE 100.6 pg/mL (0-100); BUN 24 mg/dL (7-18); BUN/Creat Ratio 15.6 RATIO (10-20); Calcium,Total 9.3 mg/dL (8.5-10.1); Chloride 98 mmol/L (98-107); Creatinine, Serum 1.54 mg/dL (0.70-1.30); EST Glomerular Filtration Rate 48 mL/min (>60); Est Glom Filt Rate - Afr Amer 58 mL/min (>60); Glucose 89 mg/dL (74-106); Potassium 4.3 mmol/L (3.5-5.1); Sodium Level 136 mmol/L (136-145)
== END ==
PROVIDERS: PCP Physician Assistant; Referring Provider Nurse Practitioner Family; Visit Provider Nurse Practitioner Family
DX: R06.09 Other forms of dyspnea (principal); I25.5 Ischemic cardiomyopathy; I10 Essential (primary) hypertension
CPT/HCPCS: 36415; 71046; 80048; 83880

== ENCOUNTER 2021-10-20 12:50 | Outpatient (CLI) | payer MEDICARE, BC, SELFPAY ==
--- NOTE | 2021-10-20 13:26 | CT_ITS ---
STUDY: CT CHEST WITHOUT CONTRAST REASON FOR EXAM: Male, 70 years old. 3 year history of dyspnea. RADIATION DOSAGE (If Supplied By Facility): CTDIvol = ( 16.99 ) mGy, DLP = ( 573.90 ) mGycm TECHNIQUE: Transaxial imaging was performed without the administration of intravenous contrast material. Multiplanar coronal and sagittal images were reformatted. Individualized dose optimization techniques were used for this CT. COMPARISON: Comparison is made with prior study dated 06/05/2020. FINDINGS: Mild increased linear markings at the bases slightly more prominent on the right side suggestive of mild scarring. There is no demonstrated pleural abnormality. Sternal cerclage wires are present from a prior sternotomy. A left-sided dual-chamber pacemaker is seen. Coronary artery calcification. There are multiple small lymph nodes within the mediastinum, which are normal in size and morphology most compatible with reactive lymph hyperplasia. Normal hilar regions. Normal unenhanced pulmonary arteries. Normal aorta arch and descending thoracic aorta. There are degenerative changes of the thoracic spine. Increased kyphosis. Tiny gallstone in the region of the neck of the gallbladder. CT/Chest without Contrast IMPRESSION: Stable examination. Electronically Signed: Mic Corona MD at 13:50 EST ,
== END 2021-10-20 23:59 | disposition short-term general hospital (02) ==
LOC: CT 12:52
PROVIDERS: PCP Physician Assistant; Visit Provider Internal Medicine Pulmonary Disease
DX: R06.00 Dyspnea, unspecified (principal); I25.10 Atherosclerotic heart disease of native coronary artery without angina pectoris
CPT/HCPCS: 71250

== ENCOUNTER → 2022-02-18 | Outpatient (CLI) | payer MEDICARE, BC, SELFPAY ==
[2022-02-18 15:20] LABS: BNP,B-Type NATRIURETIC PEPTIDE 185.3 pg/mL (0-100)
[2022-02-18 15:27] LABS: T4 Free Direct 1.27 ng/dL (0.76-1.46)
== END | disposition home or self-care (01) ==
LOC: LAB 14:15
PROVIDERS: Nurse Practitioner Family; PCP Physician Assistant; Visit Provider Internal Medicine Pulmonary Disease
DX: I27.20 Pulmonary hypertension, unspecified (principal)
CPT/HCPCS: 83880; 84439; 84443

== ENCOUNTER → 2022-02-28 | Outpatient (CLI) | payer MEDICARE, BC, SELFPAY ==
--- NOTE | 2022-02-28 13:54 | CT_ITS ---
STUDY: CT CHEST WITHOUT CONTRAST REASON FOR EXAM: Male, 71 years old. DYSPNEA RADIATION DOSAGE (If Supplied By Facility): CTDIvol = ( 16.66 ) mGy, DLP = ( 566.90 ) mGycm TECHNIQUE: Transaxial imaging was performed without the administration of intravenous contrast material. Multiplanar coronal and sagittal images were reformatted. Individualized dose optimization techniques were used for this CT. COMPARISON: Comparison is made with prior study dated 10/20/2021. FINDINGS: CHEST Stable mild linear scarring at the lung bases. There is no demonstrated pleural abnormality. Sternal cerclage wires and vascular clips are present from a prior sternotomy and coronary artery bypass graft procedure (CABG). Coronary artery calcification. Left-sided dual-chamber pacemaker is seen. Normal mediastinum. Normal hilar regions. Normal unenhanced pulmonary arteries. Normal aorta arch and descending thoracic aorta. There are multi-level degenerative changes of the thoracic spine. Increased kyphosis. Small gallstones along the dependent portion of the gallbladder lumen. CT/Chest without Contrast IMPRESSION: Stable examination. Electronically Signed: Mic Corona MD at 15:14 EDT ,
== END | disposition home or self-care (01) ==
LOC: CT 13:53
PROVIDERS: PCP Physician Assistant; Referring Provider Internal Medicine Pulmonary Disease; Visit Provider Internal Medicine Pulmonary Disease
DX: R06.00 Dyspnea, unspecified (principal)
CPT/HCPCS: 71250

== ENCOUNTER → 2022-08-08 | Outpatient (CLI) | payer MEDICARE, BC, SELFPAY ==
--- NOTE | 2022-08-08 12:02 | RAD_ITS ---
STUDY: X-RAY CHEST REASON FOR EXAM: Male, 71 years old. Amiodarone TECHNIQUE: PA and lateral. COMPARISON: 08/10/2021.. FINDINGS: LINES/DEVICES: Pacemaker device with lead unchanged. LUNGS: Mildly elevated right hemidiaphragm unchanged. No consolidation. No pneumothorax. MEDIASTINUM: Unremarkable. CARDIAC SILHOUETTE: Not enlarged. Sternal wires. BONES AND SOFT TISSUES: Degenerative changes in the dorsal spine. RAD/Chest PA and Lateral IMPRESSION: No evidence of active intrathoracic disease. Electronically Signed: Tiffanie Steen MD at 5:10 EST ,
[2022-08-08 12:54] LABS: Free T3 1.9 pg/mL (2.18-3.98); T4 Free Direct 1.26 ng/dL (0.76-1.46); Thyroid Stim Hormone (TSH) 2.92 uIU/mL (0.358-3.74)
== END | disposition home or self-care (01) ==
LOC: RAD 12:00
PROVIDERS: PCP Physician Assistant; Visit Provider Nurse Practitioner Gerontology
DX: R53.83 Other fatigue (principal); Z79.899 Other long term (current) drug therapy
CPT/HCPCS: 36415; 71046; 84439; 84443; 84481

== ENCOUNTER → 2023-03-31 | Outpatient (CLI) | payer MEDICARE, BC, SELFPAY ==
--- NOTE | 2023-03-31 12:27 | ECHOCS_ITS ---
Reason For Study: DYSPNEA Procedure This was a 2D Doppler, Color Flow transthoracic echocardiogram. The study was technically difficult. Exam performed in department. Left Ventricle Normal LV size. The estimated ejection fraction is 40 %. Normal diastology for age. There are regional wall motion abnormalities as specified. Anterio-Basal: Akinetic. Mid-Anterior : Akinetic. Anterior [place] : Hypokinetic. Infero-Basal: Akinetic. Mid-Inferior: Hypokinetic. Inferior [place] : Hypokinetic. Basal inferoseptal: Hypokinetic. Mid-inferoseptal : Hypokinetic. Septal [place] : Akinetic. Right Ventricle Normal RV size. There is a pacemaker lead in the right ventricle. Normal systolic function. Atria The left and right atria are normal. Bubble contrast study negative for right to left interatrial shunt. Hypermobile atrial septum. Mitral Valve The mitral valve is structurally normal. No prolapse or stenosis seen. Mild (1+) mitral valve insufficiency. Tricuspid Valve Normal tricuspid valve. Mild (1+) tricuspid valve insufficiency. Right ventricular systolic pressure estimated to be 27 mmHg. Aortic Valve Trisinus/trileaflet aortic valve. No aortic valve insufficiency. Pulmonic Valve The pulmonic valve is not well visualized. Great Vessels Aortic root size upper limits of normal. Pericardium/Pleural No pericardial effusion. Medication 22 gauge I.V. with prn adaptor inserted into left arm. Diluted definity 2ml given slow IV push to enhance endocardial definition. Performed a rapid injection of agitated mix of 9 cc saline and 1cc air to assess for atrial septal defect. MMode/2D Measurements & Calculations LVIDd: 5.4 cm IVSd: 0.92 cm Ao root diam: 3.4 cm LVIDs: 4.0 cm LVPWd: 0.93 cm RVDd: 4.0 cm FS: 26.6 % LAV(MOD-bp): 57.8 ml LVAd ap4: 34.7 cm2 SV(MOD-sp4): 48.8 ml LAV(MOD-bp) Indexed: 27.4 ml/m2 LVLd ap4: 8.1 cm LAV(MOD-sp2): 54.0 ml EDV(MOD-sp4): 123.0 ml LAV(MOD-sp4): 59.6 ml EDV(sp4-el): 126.4 ml LVAs ap4: 26.1 cm2 LVLs ap4: 7.6 cm ESV(MOD-sp4): 74.2 ml ESV(sp4-el): 76.3 ml EF(MOD-sp4): 39.7 % EF(sp4-el): 39.6 % SV(sp4-el): 50.1 ml LA A4 area: 20.4 cm2 LA dimension(2D): 4.1 cm RA A4 area: 16.6 cm2 Time Measurements MV dec time: 0.18 sec Doppler Measurements & Calculations MV E max gibran: 59.8 cm/sec Lat Peak E' Gibran: 10.4 cm/sec Med Peak E' Gibran: 6.7 cm/sec MV A max gibran: 67.4 cm/sec E/E' lat: 5.7 E/E' med: 9.0 MV E/A: 0.89 Ao V2 max: 105.7 cm/sec LV V1 max: 82.2 cm/sec PA V2 max: 84.3 cm/sec Ao max P.5 mmHg LV V1 max P.7 mmHg TR max gibran: 246.4 cm/sec TR max P.3 mmHg ECHO/Echo Complete W/ Contrast Interpretation Summary The estimated ejection fraction is 40 %. There are regional wall motion abnormalities as specified. Mild (1+) mitral valve insufficiency. Mild (1+) tricuspid valve insufficiency. Bubble contrast study negative for right to left interatrial shunt. The study was technically difficult. Contrast injection was performed. Ordering Physician: Mark Johnson Referring Physician: ELVIA MEMBRENO Performed By: Kalpana Ram RDCS
== END | disposition home or self-care (01) ==
LOC: CVS 12:26
PROVIDERS: PCP Physician Assistant; Referring Provider Internal Medicine Cardiovascular Disease; Visit Provider Internal Medicine Cardiovascular Disease
DX: R06.09 Other forms of dyspnea (principal); I25.5 Ischemic cardiomyopathy; Z95.810 Presence of automatic (implantable) cardiac defibrillator; I10 Essential (primary) hypertension; I95.1 Orthostatic hypotension; R00.1 Bradycardia, unspecified
CPT/HCPCS: 93306; Q9957; A4216; C8929

== ENCOUNTER → 2023-04-17 | Outpatient (CLI) | payer MEDICARE, BC, SELFPAY | END | disposition home or self-care (01) | LOC: LAB 15:01 | PROVIDERS: PCP Physician Assistant; Referring Provider Urology; Visit Provider Urology | DX: Z12.5 Encounter for screening for malignant neoplasm of prostate (principal) | CPT/HCPCS: 36415; 84153; G0103 ==

== ENCOUNTER → 2023-04-27 | Outpatient (CLI) | payer MEDICARE, BC, SELFPAY ==
--- NOTE | 2023-04-27 13:27 | MRI_ITS ---
HISTORY: LUMBAR RADICULOPATHY, SEVERE MID BACK PAIN TECHNIQUE: Multiplanar and multisequence MR images of the lumbar spine were obtained without intravenous contrast. 129 images. COMPARISON: None. FINDINGS: VERTEBRAE: Mild T12 superior endplate and L1 inferior endplate compression fractures with less than 30% loss of height, bone marrow edema, and no significant retropulsion into the spinal canal. Mild L2 superior endplate compression fracture with less than 20% loss of height, mild pulmonary edema, and no significant retropulsion into the spinal canal. ALIGNMENT: Minimal 2 mm retrolisthesis of L3-4 and 2 mm anterolisthesis of L4-5. SPINAL CANAL: Normal morphology and position of the conus medullaris at L1. No gross ligamentous disruption or epidural collection. INTERVERTEBRAL DISCS: T12-L1: No significant posterior disc protrusion, central canal stenosis, or foraminal narrowing based on the sagittal images. L1-2: No significant posterior disc protrusion, central canal stenosis, or foraminal narrowing. L2-3: Minimal disc bulge with facet arthropathy resulting in minimal narrowing of the thecal sac and mild bilateral foraminal narrowing. L3-4: Mild posterior disc bulge osteophyte complex with facet arthropathy resulting in minimal narrowing of the thecal sac and mild bilateral foraminal narrowing. L4-5: No significant posterior disc protrusion, central canal stenosis, or foraminal narrowing. Facet arthropathy. L5-S1: Minimal disc bulge with facet arthropathy. No significant central canal stenosis. Mild bilateral foraminal narrowing. SOFT TISSUES: Mild posterior subcutaneous edema. MRI/Spine Lumbar (Routine) IMPRESSION: Mild T12, L1, and L2 compression fractures. Mild degenerative disc disease of the lumbar spine without significant spinal canal stenosis. Mild bilateral foraminal narrowing as above. Electronically Signed: Radha Meyers MD at 8:16 EDT ,
--- NOTE | 2023-04-27 13:30 | MRI_ITS ---
EXAM: MR HEAD WITHOUT INTRAVENOUS CONTRAST CLINICAL INDICATION: PARKINSONS, TREMORS, SECONDARY SEIZURES TECHNIQUE: Multiplanar and multisequence MR images of the brain were obtained without intravenous contrast. Magnetic field strength 1.5 T. COMPARISON: No relevant prior studies available. FINDINGS: BRAIN AND EXTRA-AXIAL SPACES: Abnormal T2 signal in the deep cerebral white matter is consistent with chronic small vessel ischemic/degenerative changes. The cerebral and cerebellar sulci are prominent consistent with brain atrophy. 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 Small old bilateral occipital infarcts. Small old right parietal cortical infarct. Small old left temporal cortical infarct. No intra- or extra-axial hemorrhage. No intracranial mass or mass effect. Basal cisterns are patent. SELLA: Unremarkable. Normal sella turcica, pituitary gland, infundibular stalk, optic chiasm and hypothalamus. AUDITORY SYSTEM: Unremarkable. The internal auditory canals are patent. BONES/JOINTS: Unremarkable. No discrete lytic or blastic abnormalities. SINUSES: Unremarkable as visualized. Clear. MASTOID AIR CELLS: Unremarkable as visualized. Clear. ORBITS: Unremarkable as visualized. Both globes, extraocular muscles, optic nerves and retrobulbar fat appear unremarkable. VASCULATURE: Unremarkable as visualized. Normal flow voids in the major intracranial circulation. MRI/Brain without Contrast IMPRESSION: 1. Chronic small vessel ischemic/degenerative changes. 2. Cerebral and cerebellar atrophy. 3. 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 4. 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 5. Small old bilateral occipital infarcts. 6. Small old right parietal cortical infarct. 7. Small old left temporal cortical infarct. 8. No acute intracranial abnormality. Electronically Signed: Sonu Asher MD at 5:47 EDT ,
[2023-04-27 14:05] VITALS: BP 149/71; PULSE 69; RESP 16; O2SAT 93
[2023-04-27 14:20] VITALS: BP 146/73; PULSE 68; RESP 16; O2SAT 939
[2023-04-27 14:28] VITALS: BP 145/69; PULSE 68; RESP 16; O2SAT 94
[2023-04-27 14:45] VITALS: BP 142/67; PULSE 66; RESP 16; O2SAT 93
[2023-04-27 14:57] VITALS: BP 135/72; PULSE 66; RESP 16; O2SAT 92
== END | disposition home or self-care (01) ==
LOC: MRI 13:06
PROVIDERS: PCP Physician Assistant; Referring Provider Orthopaedic Surgery; Visit Provider Orthopaedic Surgery
DX: R55 Syncope and collapse (principal); M51.36 Other intervertebral disc degeneration, lumbar region; M47.26 Other spondylosis with radiculopathy, lumbar region
CPT/HCPCS: 70551; 72148

== ENCOUNTER → 2023-05-16 | Outpatient (CLI) | payer MEDICARE, BC, SELFPAY ==
--- NOTE | 2023-05-16 | IMM_PTH ---
PATIENT: AMANDA HERNANDEZ LOC: [facility] U#:[id number] AGE/SX: 72/M ROOM: RE05/16/[address]: Dr. Maikel Rogers DO : 1950 BED: DIS: 05/16/2023 SPEC #: [id number] RECD: 05/18/23 11:23 STATUS: SHAYY REQ #: [id number] DEMARCO: 05/16/23 00:[address]: Maikel Rogers DEPT: IMMUNOHISTOCHEMISTRY RECD BY: Lucero Hong ENTERED: 05/18/23 11:26 SP TYPE: IMMUNO OTHR DR: MARIELENA Edwards Tissues: A - Vertebra, NOS B - Vertebra, NOS Procedures: CD138 (add) CD34 (add) CD45 (add) CK8 (add) KAPPA (add) LAMBDA (add) Pankeratin (initial) PHYSICIAN & INSTITUTION [place] [id number] SPECIMEN INFORMATION: Tissue Source: A. Vertebral body T-12, B. Vertebral body L-1 Clinical Info: Wedge compression fracture of fist lumbar vertebra Specimen Number: [id number] A & B CPT code: 57950 x2, 37567 x12 METHODOLOGY: Deparaffinized sections of prefer/formalin-fixed tissue or PAP/DQ stained slides are incubated with monoclonal/polyclonal antibodies/oligonucleotide probes. Localization is made via biotin free immunoperoxidase method. Appropriate controls are performed and reacted as expected. Results on target cell population are indicated in the following table: RESULTS: ANTIBODY / CLONE RESULT Block A AE1-3 (AE1/AE3/PCK26) negative CK8 (96pnqjT63) negative CD45 (RP2/18) positive CD138 (B-A38) positive [place] (Noracastra oligonucleotide probe) positive Lambda (Noracastra oligonucleotide probe) positive CD34 (QBEnd-10) negative Block B AE1-3 (AE1/AE3/PCK26) negative CK8 (42ptnkC36) negative CD45 (RP2/18) positive CD138 (B-A38) positive [place] (Noracastra oligonucleotide probe) positive Lambda (Noracastra oligonucleotide probe) positive CD34 (QBEnd-10) negative These tests were developed and their performance characteristics determined by [facility]. They may not have been cleared or approved by the U.S. Food and Drug Administration. The FDA has determined that such clearance or approval is not necessary. The above immunohistochemical/dualISH markers are ordered and reviewed by the Pathologist. INTERPRETATION: A. Vertebral body T-12, biopsy: Negative for malignancy. See comment B. Vertebral body L-1, biopsy: Negative for malignancy. See comment Comment A and B: Mild interstitial infiltrates of plasma cells noted , polytypic in nature. SJ:louie 05/19/23
--- NOTE | 2023-05-16 08:45 | BONBX_PTH ---
PATIENT: AMANDA HERNANDEZ [facility] U[id number] AGE/SX: 72/M ROOM: RE05/16/[address]: Dr. Maikel Rogers DO : 1950 BED: DIS: 05/16/2023 SPEC #: [id number] RECD: 05/17/23 09:18 STATUS: SHAYY REYanely #: [id number] DEMARCO: 05/16/23 08:[address]: Maikel Rogers DEPT: SURGICAL PATHOLOGY RECD BY: Kristin Jean-Baptiste ENTERED: 05/17/23 09:19 SP TYPE: Bone OTHR DR: MARIELENA Edwards [facility] Tissues: A - Vertebra, NOS B - Vertebra, NOS Procedures: Decalcification bone/plaque Surgery Specimen Level V HEADER OPERATION: Thoracic 12 kyphoplasty, lumbar 1 kyphoplasty PRE-OP DIAGNOSIS: Wedge compression fracture of first lumbar vertebra TISSUE SUBMITTED: A. Vertebral body T-12, B. Vertebral body L-1 MICROSCOPIC DIAGNOSIS A. Vertebral body T-12, core biopsy: A piece of bone with callus formation, clinically compression fracture. Negative for malignancy. See comment. B. Vertebral body L-1, core biopsy: A piece of bone with callus formation, clinically compression fracture. Negative for malignancy. See comment. SJ: 05/19/2023 COMMENT A & B. Immunohistochemistry ([id number]) supports the above diagnosis. Trilineage hematopoiesis is noted. Mild interstitial infiltrates of plasma cells are noted, polytypic in nature. Correlation with clinical findings and appropriate follow up are necessary. MICROSCOPIC DESCRIPTION Slides are reviewed. GROSS DESCRIPTION A. Received in fixative is one container labeled with the patient's name and designated vertebral body T-12. The specimen consists of one temple cored bone measuring 1.6 x 0.2 cm. Totally submitted in 1 cassette after decalcification. B. Received in fixative is one container labeled with the patient's name and designated vertebral body L-1. The specimen consists of one temple core bone measuring 1.3 x 0.2 cm. Totally submitted in one cassette after decalcification. /AM:louie 05/17/23 TC:5 CPT: 26271 x2, 10080 x2
== END | disposition home or self-care (01) ==
LOC: LABSPEC 15:09
PROVIDERS: PCP Physician Assistant; Referring Provider Orthopaedic Surgery; Visit Provider Orthopaedic Surgery
DX: S32.010A Wedge compression fracture of first lumbar vertebra, initial encounter for closed fracture (principal); S22.080A Wedge compression fracture of T11-T12 vertebra, initial encounter for closed fracture
CPT/HCPCS: 88307; 88311; 88341; 88342

== ENCOUNTER 2023-05-19 12:07 | Observation (INO) | payer MEDICARE, BC, SELFPAY ==
[2023-05-19 12:08] VITALS: BP 157/84; PULSE 62; RESP 18; TEMP 36.4; O2SAT 97
--- NOTE | 2023-05-19 14:06 | EDS_ITS ---
HPI <PUNEET Sun - Last Filed: 05/19/23 16:23> History of Present Illness Chief Complaint: Weakness Narrative Narrative: Patient 72-year-old male with history of CAD, CVA with difficulty speaking, acute on chronic back pain who presents to the emergency department for placement. I spoke with the patient's back surgeon Dr. Rogers, the patient had a kyphoplasty completed 3 days ago. Patient had a fall in February where he had 3 compression fractures in his back, as well as some broken ribs on the right side. Since this time, patient has been not doing well at home. Patient is having consistent pain to his lower back. Patient has having multiple falls. The can no longer take care of him. The patient is here for evaluation as well as admission for possible placement for PT/OT. [facility] <PUNEET Sun - Last Filed: 05/19/23 16:23> [facility] Medical History (Updated 03/24/23 @ 08:22 by Anisa Matta) Anxiety Aphonia Atherosclerotic heart disease of [place] coronary artery without angina pectoris Bifascicular block BPH (benign prostatic hyperplasia) Bradycardia Cardiac arrest with ventricular fibrillation CVA (cerebral vascular accident) Dysphagia Dyspnea Dyspnea on exertion Essential hypertension Fatigue GERD (gastroesophageal reflux disease) Hyperlipidemia Hypothyroidism Ischemic cardiomyopathy Non-rheumatic mitral regurgitation Pulmonary hypertension Right bundle branch block Trigeminal neuralgia Home Medications atorvastatin 40 mg tablet 40 mg PO QDAY 04/05/18 [History Last Taken Unknown] nitroglycerin 0.4 mg sublingual tablet 0.4 mg sublingual Q5-15M PRN Pain Or Fever 04/05/18 [History Last Taken Unknown] mirtazapine 30 mg tablet (Remeron) 30 mg PO DAILY 09/26/18 [History Last Taken Unknown] omeprazole 20 mg tablet,delayed release 20 mg PO DAILY 09/26/18 [History Last Taken 06/17/20 09:30] potassium chloride 10 mEq tablet,extended release 20 meq PO BID 11/18/19 [H istory Last Taken Unknown] losartan 25 mg tablet 25 mg PO BID 02/17/21 [History Last Taken Unknown] acetaminophen 650 mg tablet,extended release (Tylenol Arthritis Pain) 1,300 mg PO Q8H PRN 08/10/21 [History Last Taken Unknown] lorazepam 0.5 mg tablet 0.5 mg PO DAILY PRN 08/10/21 [History Last Taken Unknown] aspirin 81 mg tablet,delayed release 81 mg PO QDAY 02/01/22 [History Last Taken Unknown] amiodarone 200 mg tablet 100 mg (1/2 x 200 mg) PO QDAY #90 tabs 08/08/22 [Rx Last Taken Unknown] metolazone 2.5 mg tablet 2.5 mg PO .Every 4 days PRN FLUID RETENTION #30 tabs 11/15/22 [Rx Last Taken Unknown] duloxetine 60 mg capsule,delayed release 60 mg PO DAILY 03/21/23 [History Last Taken Unknown] furosemide 40 mg tablet 40 mg PO DAILY 03/21/23 [History Last Taken Unknown] levothyroxine 25 mcg tablet 50 mcg PO .Sa/Reynolds 03/21/23 [History Last Taken Unknown] levothyroxine 25 mcg tablet (Euthyrox) 25 mcg PO .M-F 03/21/23 [History Last Taken Unknown] olanzapine 2.5 mg tablet 2.5 mg PO QPM 03/21/23 [History Last Taken Unknown] oxycodone-acetaminophen 5 mg-325 mg tablet 1 tab PO Q8H PRN pain 03/21/23 [History Last Taken Unknown] hydrocodone-acetaminophen 5-325mg 5mg-325mg tab 05/19/23 [History Last Taken 05/19/23] mirabegron 50 mg tablet,extended release 24 hr (Myrbetriq) mg PO 05/19/23 [History Last Taken 05/19/23] Allergy/AdvReac Type Severity Reaction Status Date / Time lisinopril AdvReac cough Verified 03/21/23 14:00 Family History Mother Heart disease Cancer breast Surgical History Aortocoronary bypass status (~09/28/17) History of cardiac radiofrequency ablation History of implantable cardioverter-defibrillator (ICD) placement (~11/10/17) History of resection and anastomosis of trachea (~04/2021) Social History Smoking Status: Former smoker how long ago did patient quit smokin years ago alcohol intake: current alcohol intake frequency: 3 or more drinks per day details: Binge when does drinking substance use type: does not use caffeine: No ROS <PUNEET Sun - Last Filed: 05/19/23 16:23> ROS ED ROS Narrative Constitutional: Negative for fever, chills, weight loss. Positive for weakness Eyes: Negative for vision loss, vision change, double vision ENT: Negative for any sore throat, ear pain, congestion Cardiovascular: Negative for any chest pain, tightness, palpitations Respiratory: Negative for any cough, sputum production, hemoptysis, dyspnea, dyspnea on exertion, orthopnea Gastrointestinal: Negative for any abdominal pain, nausea, vomiting, diarrhea, constipation, blood in stool, blood in vomit : Negative for any urinary frequency, dysuria, retention, blood in urine Muscle skeletal: Negative for any muscle joint pain, stiffness, myalgias, arthralgias, neck pain, back pain Neurological: Negative for any headache, syncope, numbness or tingling, dizziness Skin: Negative for any rashes, lumps, itching, abrasions, lacerations Psychiatric: Negative for any depression, anxiety, stress, suicidal ideation, homicidal ideation Hematologic: Negative for any easy bruising, excessive bruising, easy bleeding Allergies: Negative for any eczema, hives, rash EXAM <PUNEET Sun - Last Filed: 05/19/23 16:23> Physical Exam Const Vital Signs: 05/19/23 12:08 05/19/23 13:38 Temperature 97.5 F L Temperature Source Temporal Pulse Rate 62 Respiratory Rate 18 Respiratory Effort Normal Non-Labored Respiratory Pattern Normal Blood Pressure 157/84 H Blood Pressure Mean 108 Pulse Ox 97 Oxygen Delivery Method Room Air <Dr. Juan Daniel Thornton MD - Last Filed: 05/19/23 14:40> Physical Exam Const Vital Signs: 05/19/23 12:08 05/19/23 13:38 Temperature 97.5 F L Temperature Source Temporal Pulse Rate 62 Respiratory Rate 18 Respiratory Effort Normal Non-Labored Respiratory Pattern Normal Blood Pressure 157/84 H Blood Pressure Mean 108 Pulse Ox 97 Oxygen Delivery Method Room Air MDM <PUNEET Sun - Last Filed: 05/19/23 16:23> MDM Lab Data Labs: Laboratory Results - last 24 hr 05/19/23 13:37 WBC 7.3 RBC 4.31 L Hgb 14.4 Hct 43.9 MCV 101.9 H MCH 33.4 H MCHC 32.8 RDW Std Deviation 52.0 H RDW Coeff of Elpidio 13.7 Plt Count 262 MPV 9.2 Immature Gran % (Auto) 0.400 Neut % (Auto) 78.2 H Lymph % (Auto) 10.7 L [place] % (Auto) 8.5 Eos % (Auto) 1.8 Baso % (Auto) 0.4 Absolute Neuts (auto) 5.7 Absolute Lymphs (auto) 0.78 L Nucleated RBC % 0 Sodium 136 Potassium 3.6 Chloride 103 Carbon Dioxide 29.0 Anion Gap 4 L BUN 12 Creatinine 1.09 Estim Creat Clear Calc 63.06 Est GFR (MDRD) Af Amer 86 Est GFR (MDRD) Non-Af 71 BUN/Creatinine Ratio 11.0 Glucose 138 H Calcium 9.5 <Dr. Juan Daniel Thornton MD - Last Filed: 05/19/23 14:40> MDM MDM Narrative Medical decision making narrative: I have personally performed a face to face assessment of the patient and have reviewed the JOJO Note. I performed a substantive portion of the visit including all aspects of the following. My hernández findings include: History is remarkable for decline since fall end of February where he fractured his dorsal and lumbar vertebrae, compression, and multiple ribs. He recently underwent kyphoplasty. He still having pain. He is not doing well at home. He has problems with expressive aphasia due to prior stroke. He denies bowel bladder dysfunction. He denies saddle paresthesia or anesthesia. He denies radicular pain. He has generalized weakness. Exam is remarkable for slightly low blood pressure. HEENT exam is unremarkable. Heart lung exams unremarkable. Abdomen soft nontender. Straight leg test is negative right and left. Patella and ankle reflex are 1+ and symmetric. EHLs intact. 5/5 strength with plantar and dorsiflexion of his foot. Negative straight leg test right and left. Patient became tearful during the history and physical examination. states he is frustrated because he is unable to speak due to prior stroke. Medical Decision Making we will consult case management regarding direct placement into rehab unit or transitional care unit versus requiring authorization and overnight stay. Blood work was obtained to evaluate for anemia, elevated white count, metabolic causes i.e. electrolyte abnormality etc. Other additions or changes: [None] Lab Data Attestation: I reviewed the patient's lab results. Lab results narrative: CBC is unremarkable. Comprehensive metabolic panel is remarkable glucose 138 with normal CO2 anion gap. Labs: Laboratory Results - last 24 hr 05/19/23 13:37 WBC 7.3 RBC 4.31 L Hgb 14.4 Hct 43.9 MCV 101.9 H MCH 33.4 H MCHC 32.8 RDW Std Deviation 52.0 H RDW Coeff of Elpidio 13.7 Plt Count 262 MPV 9.2 Immature Gran % (Auto) 0.400 Neut % (Auto) 78.2 H Lymph % (Auto) 10.7 L [place] % (Auto) 8.5 Eos % (Auto) 1.8 Baso % (Auto) 0.4 Absolute Neuts (auto) 5.7 Absolute Lymphs (auto) 0.78 L Nucleated RBC % 0 Sodium 136 Potassium 3.6 Chloride 103 Carbon Dioxide 29.0 Anion Gap 4 L BUN 12 Creatinine 1.09 Estim Creat Clear Calc 63.06 Est GFR (MDRD) Af Amer 86 Est GFR (MDRD) Non-Af 71 BUN/Creatinine Ratio 11.0 Glucose 138 H Calcium 9.5 EKG Initial EKG: Attestation: I personally reviewed and interpreted this EKG as follows: Interpretation: Sinus Bradycardia (Rate is 59. [place] is left. [place] interval is 208 ms. QRS duration is prolonged at 158 with a right bundle branch block noted. QT interval is 548 ms.) Prior: Unchanged Discharge Plan Triage Chief Complaint: Weakness ED Midlevel Provider: Trey Vega ED Provider: Juan Daniel Thornton Dx/Rx/DC Orders Prescriptions: No Action nitroglycerin 0.4 mg tablet, sublingual 0.4 mg SUBLINGUAL Q5-15M PRN (Reason: Pain Or Fever) atorvastatin 40 mg tablet 40 mg PO QDAY aspirin 81 mg tablet,delayed release (DR/EC) 81 mg PO QDAY Rx Instructions: 2 tabs daily omeprazole 20 mg tablet,delayed release (DR/EC) 20 mg PO DAILY mirtazapine [Remeron] 30 mg tablet 30 mg PO DAILY potassium chloride 10 mEq tablet extended release 20 meq PO BID losartan 25 mg tablet 25 mg PO BID levothyroxine [Euthyrox] 25 mcg tablet 25 mcg PO .M- acetaminophen [Tylenol Arthritis Pain] 650 mg tablet extended release 1,300 mg PO Q8H PRN lorazepam 0.5 mg tablet 0.5 mg PO DAILY PRN olanzapine 2.5 mg tablet 2.5 mg PO QPM levothyroxine 25 mcg tablet 50 mcg PO .Sa/Reynolds duloxetine 60 mg capsule,delayed release(DR/EC) 60 mg PO DAILY oxycodone-acetaminophen 5-325 mg tablet 1 tab PO Q8H PRN (Reason: pain) furosemide 40 mg tablet 40 mg PO DAILY hydrocodone-acetaminophen 5-325 mg tablet Myrbetriq 50 mg tablet extended release 24 hr PO Patient Comments: TAKE 1 TABLET BY MOUTH ONCE DAILY amiodarone 200 mg tablet 100 mg PO QDAY Qty: 90 3RF metolazone 2.5 mg tablet 2.5 mg PO .Every 4 days PRN (Reason: FLUID RETENTION) Qty: 30 3RF Primary Care Provider: Kaylin Hui Referrals: Kaylin Hui PA [Primary Care Provider] -
--- NOTE | 2023-05-19 14:11 | NURSING ---
NO OLD EKGS
[2023-05-19 14:19] LABS: Absolute Lymphocyte Count 0.78 X10^3/uL (0.83-4.51); Absolute Neutrophil Count 5.7 X10^3/uL (2.0-7.7); Basophil# 0.03 X10^3/uL; Basophil% 0.4 % (0-1); Eosinophil# 0.13 X10^3/uL; Eosinophils% 1.8 % (0-5); Hematocrit 43.9 % (40-54); Hemoglobin 14.4 g/dL (13.0-16.5); Lymphocyte # 0.78 X10^3/ul (0.83-4.51); Lymphocyte % 10.7 % (19-41); Mean Corp Hgb Conc 32.8 g/dL (32-36); Mean Corpuscular Hgb 33.4 pg (27.0-32.0); Mean Corpuscular Volume 101.9 fL (80-94); Mean Platelet Vol. 9.2 fl (6.2-12.0); Monocyte# 0.62 X10^3/uL; Monocyte% 8.5 % (0-10); NRBC Flagged by Analyzer 0 % (0-5); Neutrophil # 5.69 X10^3/uL (2.7-7.7); Neutrophil % 78.2 % (47-70); Platelet Count 262 K/mm3 (150-450); RBC Distribution Width CV 13.7 % (11.6-14.6); Red Blood Count 4.31 M/mm3 (4.6-6.2); White Blood Count 7.3 K/mm3 (4.4-11.0)
[2023-05-19 14:20] VITALS: BMI 30.6
[2023-05-19 14:34] LABS: Anion Gap 4 (5-15); BUN 12 mg/dL (7-18); Calcium,Total 9.5 mg/dL (8.5-10.1); Chloride 103 mmol/L (98-107); Creatinine, Serum 1.09 mg/dL (0.70-1.30); EST Glomerular Filtration Rate 71 mL/min (>60); Est Glom Filt Rate - Afr Amer 86 mL/min (>60); Estimated Creatinine Clearance 63.06 ml/min; Glucose 138 mg/dL (74-106); Potassium 3.6 mmol/L (3.5-5.1); Sodium Level 136 mmol/L (136-145)
[2023-05-19] MEDS: Oxycodone/Apap 5/325 Tablet PO (14:43)
--- NOTE | 2023-05-19 15:33 | NURSING ---
HOSPITALIST FOR DR ANGULO
--- NOTE | 2023-05-19 15:44 | PCM.HP.STD ---
HPI - General General Date of Admission: 05/19/23 Date of Service: 05/19/23 Chief Complaint: Debility HPI Narrative AMANDA HERNANDEZ is a 72 M with history of CVA with residual speech deficit, cardiac arrest with V-fib s/p ICD placement, CAD, hypertension, hypothyroidism, chronic back pain and recent kyphoplasty with Dr. Rogers on 05/16 who presented to [facility] ED on 05/19/2023 with worsening weakness. Patient seen at bedside, present. Patient able to answer some questions with verbal responses but was quite limited with his speaking capacity. Most history provided by patient's . Patient had kyphoplasty procedure done [address] Rogers for compression fractures in his back that he suffered in February. He suffered these fractures and a fall. Patient's noted that he has been more unsteady on his feet and suffering falls over prior weeks to months. notes that she was unable to take care of patient at home after the procedure. He has not been able to get up and out of bed easily due to pain and discomfort. Vitals on admit notable for mild hypertension, otherwise normal. Labs were unremarkable. EKG normal. No imaging done in the ED. [facility] Medical History (Updated 05/19/23 @ 17:21 by Zuleyma Hagan) Alcohol abuse Anxiety Aphonia Atherosclerotic heart disease of [place] coronary artery without angina pectoris Bifascicular block BPH (benign prostatic hyperplasia) Bradycardia Cardiac arrest with ventricular fibrillation Congestive heart failure (CHF) CVA (cerebral vascular accident) Depression Dysphagia Dyspnea Dyspnea on exertion Essential hypertension Fatigue Former smoker GERD (gastroesophageal reflux disease) Hyperlipidemia Hypertension Hyperthyroidism Hypothyroidism ICD (implantable cardioverter-defibrillator) in place Ischemic cardiomyopathy Myocardial infarct Non-rheumatic mitral regurgitation Pacemaker Pulmonary hypertension Right bundle branch block Trigeminal neuralgia Home Medications atorvastatin 40 mg tablet 40 mg PO QDAY 04/05/18 [History Last Taken Unknown] nitroglycerin 0.4 mg sublingual tablet 0.4 mg sublingual Q5-15M PRN Pain Or Fever 04/05/18 [History Last Taken Unknown] mirtazapine 30 mg tablet (Remeron) 30 mg PO DAILY 09/26/18 [History Last Taken Unknown] omeprazole 20 mg tablet,delayed release 20 mg PO DAILY 09/26/18 [History Last Taken 06/17/20 09:30] potassium chloride 10 mEq tablet,extended release 20 meq PO BID 11/18/19 [History Last Taken Unknown] losartan 25 mg tablet 25 mg PO BID 02/17/21 [History Last Taken Unknown] acetaminophen 650 mg tablet,extended release (Tylenol Arthritis Pain) 1,300 mg PO Q8H PRN 08/10/21 [History Last Taken Unknown] lorazepam 0.5 mg tablet 0.5 mg PO DAILY PRN 08/10/21 [History Last Taken Unknown] aspirin 81 mg tablet,delayed release 81 mg PO QDAY 02/01/22 [History Last Taken Unknown] amiodarone 200 mg tablet 100 mg (1/2 x 200 mg) PO QDAY #90 tabs 08/08/22 [Rx Last Taken Unknown] metolazone 2.5 mg tablet 2.5 mg PO .Every 4 days PRN FLUID RETENTION #30 tabs 11/15/22 [Rx Last Taken Unknown] duloxetine 60 mg capsule,delayed release 60 mg PO DAILY 03/21/23 [History Last Taken Unknown] furosemide 40 mg tablet 40 mg PO DAILY 03/21/23 [History Last Taken Unknown] levothyroxine 25 mcg tablet 50 mcg PO .Sa/Reynolds 03/21/23 [History Last Taken Unknown] levothyroxine 25 mcg tablet (Euthyrox) 25 mcg PO .M-F 03/21/23 [History Last Taken Unknown] olanzapine 2.5 mg tablet 2.5 mg PO QPM 03/21/23 [History Last Taken Unknown] oxycodone-acetaminophen 5 mg-325 mg tablet 1 tab PO Q8H PRN pain 03/21/23 [History Last Taken Unknown] hydrocodone-acetaminophen 5-325mg 5mg-325mg tab 05/19/23 [History Last Taken 05/19/23] mirabegron 50 mg tablet,extended release 24 hr (Myrbetriq) mg PO 05/19/23 [History Last Taken 05/19/23] Allergy/AdvReac Type Severity Reaction Status Date / Time lisinopril AdvReac cough Verified 05/19/23 16:49 Family History Mother Heart disease Cancer breast Surgical History (Updated 05/19/23 @ 17:19 by Zuleyma Hagan) Aortocoronary bypass status (~09/28/17) History of cardiac radiofrequency ablation History of implantable cardioverter-defibrillator (ICD) placement (~11/10/17) History of resection and anastomosis of trachea (~04/2021) Hx of CABG Social History Smoking Status: Former smoker how long ago did patient quit smokin years ago alcohol intake: current alcohol intake frequency: 3 or more drinks per day details: Binge when does drinking substance use type: does not use caffeine: No ROS Review of Systems ROS Unobtainable: other Details: Essentially nonverbal due to previous CVA Vital Signs Vital Signs Vital Signs: 05/19/23 12:08 05/19/23 13:38 Temperature 97.5 F L Temperature Source Temporal Pulse Rate 62 Respiratory Rate 18 Respiratory Effort Normal Non-Labored Respiratory Pattern Normal Blood Pressure 157/84 H Blood Pressure Mean 108 Pulse Ox 97 Oxygen Delivery Method Room Air Weight Weight: 94 kg Body Mass Index (BMI) 30.6 Physical Exam Const alert Constitutional Narrative: Sitting comfortably in bed, alert, does not appear to be in acute distress. Essentially nonverbal, occasional short answers to questions. General Appearance: cooperative and comfortable HEENT normocephalic, head/scalp atraumatic, hearing grossly normal bilaterally, nasal mucous membranes and turbinates normal and moist oral mucous membranes Eyes PERRL, EOMs intact bilaterally and conjunctivae normal Neck full ROM, no lymphadenopathy and supple Lymph Lymphatic: no lymphadenopathy noted Chest inspection of chest normal Resp normal respiratory effort, normal air movement, no use of accessory muscles and clear to auscultation bilaterally Cardio regular rate, regular rhythm, no murmurs and peripheral pulses 2+ throughout GI normal to inspection, nondistended, normoactive bowel sounds, soft to palpation, non-tender and non-distended Back/Spine normal to inspection Extremity normal to inspection, full ROM and no pedal edema Skin no rashes or lesions noted Psych mental status grossly normal Results Lab / Micro Data 05/19/23 13:37 05/19/23 13:37 Labs: Laboratory Results - last 24 hr 05/19/23 13:37: WBC 7.3, RBC 4.31 L, Hgb 14.4, Hct 43.9, MCV 101.9 H, MCH 33.4 H, MCHC 32.8, RDW Std Deviation 52.0 H, RDW Coeff of Elpidio 13.7, Plt Count 262, MPV 9.2, Immature Gran % (Auto) 0.400, Neut % (Auto) 78.2 H, Lymph % (Auto) 10.7 L, [place] % (Auto) 8.5, Eos % (Auto) 1.8, Baso % (Auto) 0.4, Absolute Neuts (auto) 5.7, Absolute Lymphs (auto) 0.78 L, Nucleated RBC % 0, Sodium 136, Potassium 3.6, Chloride 103, Carbon Dioxide 29.0, Anion Gap 4 L, BUN 12, Creatinine 1.09, Estim Creat Clear Calc 63.06, Est GFR (MDRD) Af Amer 86, Est GFR (MDRD) Non-Af 71, BUN/Creatinine Ratio 11.0, Glucose 138 H, Calcium 9.5 Assessment & Plan Assessment/Plan (1) Adult failure to thrive: PLAN: Plan Patient is a 72-year-old male with history of CVA with residual speech deficit, cardiac arrest with V-fib s/p ICD placement, CAD, hypertension, hypothyroidism, chronic back pain and recent kyphoplasty with Dr. Rogers on 05/16 who presented to [facility] ED on 05/19/2023 with worsening weakness. 1. Generalized weakness, debility - Suspect acute on chronic in setting of known back pain and recent procedure as noted below. noted that she has been unable to take care of him at home. PT/OT/case management consulted. 2. Chronic back pain, recent kyphoplasty procedure ? Had fall in February with 3 compression fractures in his back, along with some broken ribs on the right side. Had kyphoplasty procedure done with Dr. Rogers 3 days ago. Has been very limited with his activity since then. Patient and state he was initially prescribed tramadol for pain postoperatively, but this was not helping him. Then started on oxycodone with better relief of his pain. We will start oxycodone 5 to 10 mg every 4 hours as needed, IV Dilaudid 0.5 to 1 mg every 3 hours as needed for pain control. Continue home Cymbalta. Senna twice daily, MiraLAX as needed for constipation prophylaxis. 3. History of cardiac arrest with ICD placement ? Continue home amiodarone. 4. History of CVA with residual speech deficit ? Patient unable to provide much history, most history provided by patient's . Continue home statin. 5. Hypothyroidism ? Continue home Synthroid. DVT prophylaxis: Lovenox CODE STATUS: Full code, verified Expected disposition: Home with home health care versus SNF, TBD Total clinical time spent by myself addressing the patient's medical issues, reviewing all the data, and collaborating with patient's care team: 55 minutes. Charges/Coding Visit Charges Inpatient E&M: 70851 Init Hosp L2
[2023-05-19 17:12] VITALS: BP 149/81; PULSE 81; RESP 16; TEMP 36.3; O2SAT 97; BMI 30.1
[2023-05-19 17:22] VITALS: BP 155/90; PULSE 59; RESP 16; TEMP 37; O2SAT 93
[2023-05-19] MEDS: HYDROmorphone 0.5 MG/0.5 ML SYRINGE IV (17:56)
[2023-05-19 19:23] VITALS: O2SAT 93
[2023-05-19 21:51] VITALS: BP 149/76; PULSE 59; RESP 16; TEMP 36.9; O2SAT 92
[2023-05-19] MEDS: OLANZapine 2.5 MG Tablet PO (21:54)
[2023-05-19] MEDS: Senna Tablet 1 TABLET PO (21:54)
[2023-05-19] MEDS: Mirtazapine 30 MG Tablet PO (21:55)
[2023-05-19] MEDS: Atorvastatin Calcium 40 MG Tablet PO (21:55)
--- NOTE | 2023-05-19 21:59 | CM.ED ---
Social Work SW introduced self and role to patient and spouse, Renetta. Pt was sent here by Dr. Rogers after difficulty after surgery 3 days ago. Pt had 3 compression fractures in February and had an outpatient Kyphoplasty and since has been unable to do well at home and has been reports high pain levels. Pt presents as tearful, in pain, and has difficulty with speech. Pt had a stroke in the past and open heart surgery. Prior to surgery patient and report he was drinking 6-8 beers daily. Pt stopped drinking the day before surgery and has now been without alcohol for 4 days. Pt and deny withdrawal symptoms. SW expressed concern regarding alcohol. Pt and believe SNF or Rehab would be beneficial. SW explained the needs for MCR to cover services and the option to self-pay. Ability to self-pay denied. Pt may also benefit from C but is unclear patient's level of need -vs- baseline. Patient reports having grab bars, a shower seat, wheelchair, and using a walker in the home. SW to follow for patient needs and PT/OT recommendations. Randa Nieto [employer] LINE HANGER, CARDIAC MONITOR
[2023-05-19 23:38] LABS: Red Blood Cells-Urine 0 SEEN /hpf (0-5); Squamous Epithelial Cells - UA 0 SEEN /hpf (0-5); White Blood Cells 0 SEEN /hpf (0-5)
[2023-05-19 23:39] LABS: Color, Urine Yellow (Yellow); Glucose, Dipstick Normal (Normal); Ketone-Dipstick 5 mg/dl (Negative); Leukocyte Esterase-Dipstick 25 /ul (Negative); Nitrite-Dipstick Negative (Negative); Occult Blood-Urine Negative /ul (Negative); Protein-Dipstick 30 mg/dl (Negative); Urine Clarity Clear (Clear); Urine Urobilinogen 1 mg/dl (Normal)
[2023-05-19 23:40] LABS: Urine Bilirubin Dipstick 1 mg/dL (Negative)
[2023-05-19 23:47] LABS: Bacteria RARE /hpf (None Seen)
[2023-05-19 23:48] LABS: Mucous, Urine 2+ /hpf (<or=2+)
[2023-05-20 03:33] VITALS: BP 137/64; PULSE 61; RESP 16; TEMP 36.9; O2SAT 93
[2023-05-20] MEDS: oxyCODONE 5 MG Tablet PO (03:40)
[2023-05-20 04:26] VITALS: BMI 30.1
[2023-05-20] MEDS: Levothyroxine 50 MCG Tablet PO (05:59)
--- NOTE | 2023-05-20 08:44 | PCM.PN.HOSP ---
Reason for Visit Reason for Visit: Diagnoses Adult failure to thrive (05/19/23) Subjective Subjective Patient is a 72-year-old gentleman who underwent kyphoplasty by Dr. Modi on 05/16/2023 presented to the emergency department with progressive generalized weakness and assessment of adult failure to thrive made admitted to regular nursing floor for further management Objective Data Objective Data Vital Signs: Vital Signs Temp Pulse Resp BP Pulse Ox O2 Del Method 98.4 F 61 16 137/64 H 93 Room Air 05/20/23 03:33 05/20/23 03:33 05/20/23 03:33 05/20/23 03:33 05/20/23 03:33 05/20/23 07:50 Oxygen Delivery Method Room Air Weight: 92.6 kg Body Mass Index (BMI) 30.1 Intake & Output: Intake and Output for Last 24 Hours 05/18/23 05/19/23 05/20/23 23:59 23:59 23:59 Intake Total 490 / 490 240 / 240 Balance 490 / 490 240 / 240 Lab / Micro Data 05/19/23 13:37 05/19/23 13:37 Labs: Laboratory Results - last 24 hr 05/19/23 13:37: WBC 7.3, RBC 4.31 L, Hgb 14.4, Hct 43.9, MCV 101.9 H, MCH 33.4 H, MCHC 32.8, RDW Std Deviation 52.0 H, RDW Coeff of Elpidio 13.7, Plt Count 262, MPV 9.2, Immature Gran % (Auto) 0.400, Neut % (Auto) 78.2 H, Lymph % (Auto) 10.7 L, [place] % (Auto) 8.5, Eos % (Auto) 1.8, Baso % (Auto) 0.4, Absolute Neuts (auto) 5.7, Absolute Lymphs (auto) 0.78 L, Nucleated RBC % 0, Sodium 136, Potassium 3.6, Chloride 103, Carbon Dioxide 29.0, Anion Gap 4 L, BUN 12, Creatinine 1.09, Estim Creat Clear Calc 63.06, Est GFR (MDRD) Af Amer 86, Est GFR (MDRD) Non-Af 71, BUN/Creatinine Ratio 11.0, Glucose 138 H, Calcium 9.5 05/19/23 23:30: Urine Color Yellow, Urine Clarity Clear, Urine pH 6.0, Ur Specific [place] 1.020, Urine Protein 30 H, Urine Glucose (UA) Normal, Urine Ketones 5 H, Urine Occult Blood Negative, Urine Nitrite Negative, Urine Bilirubin 1 H, Urine Urobilinogen 1 H, Ur Leukocyte Esterase 25 H, Urine RBC 0 SEEN, Urine WBC 0 SEEN, Ur Squamous Epith Cells 0 SEEN, Urine Bacteria RARE, Urine Mucus 2+ Physical Exam Narrative GENERAL: cooperative HEENT: Atraumatic; normocephalic EYES; Anicteric, Normal Conjunctiva NECK; supple, normal thyroid, RESPIRATORY: Diminished to auscultation CARDIOVASCULAR: Regular S1 S2, GI: soft, normoactive bowel sounds, : No Renal angle tenderness; EXTREMITIES: No edema, no clubbing, MUSCULOSKELETAL: no muscle wasting NEURO: Awake; no lateralizing signs. SKIN: No Rash PSYCH; Flat affect Assessment & Plan Assessment/Plan (1) Adult failure to thrive: PLAN: Plan Patient is a 72-year-old gentleman who underwent kyphoplasty by Dr. Modi on 05/16/2023 presented to the emergency department with progressive generalized weakness and assessment of adult failure to thrive made admitted to regular nursing floor for further management 1. Physical deconditioning - Requested for PT OT eval and social human services assistants to assist with discharge planning 2. Chronic back pain ? With history of previous compression fractures. Patient underwent kyphoplasty on 05/16/2023. Admitted to regular nursing floor PT OT ordered in addition to pain management 3. History of cardiac arrest secondary to V-fib ? Status post AICD placement. Patient is on amiodarone did continue 4. 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 Hypothyroidism - Patient is on levothyroxine home dose continued 6. Dyslipidemia -Patient is on statin therapy, continued at home dose 7. Hypertension - Blood pressure controlled, home medications continued with dose adjustment as needed 8. GERD ? Patient is on PPI 9. DVT prophylaxis ? SC Lovenox Time spent in the patient's overall evaluation,decision-making process, review of diagnostic data, adjustment of management, discussion with other providers, nursing nursing and ancillary staff involved in patient's care documentation, 50 Minutes Charges/Coding Visit Charges Inpatient E&M: 76367 [facility] [[email or web address]] Hosp L3
[2023-05-20 09:11] VITALS: BP 154/75; PULSE 57; RESP 18; TEMP 36.8; O2SAT 95
[2023-05-20] MEDS: Senna Tablet 1 TABLET PO ×2 (09:16→23:10)
[2023-05-20] MEDS: Aspirin E.C. 81 MG Tablet 162 MG PO (09:16)
[2023-05-20] MEDS: Furosemide 40 MG Tablet PO (09:17)
[2023-05-20] MEDS: Potassium Chloride Oral Tablet 20 MEQ PO (09:17)
[2023-05-20] MEDS: DULoxetine Hcl 60 MG Capsule PO (09:17)
[2023-05-20] MEDS: Pantoprazole Sodium 20 MG Tablet PO (09:18)
[2023-05-20] MEDS: Amiodarone 200 MG Tablet 100 MG PO (09:18)
[2023-05-20] MEDS: Mirtazapine 30 MG Tablet PO (09:18)
[2023-05-20] MEDS: Acetaminophen 325 MG Tablet 650 MG PO (10:50)
--- NOTE | 2023-05-20 12:46 | CASEMGMT ---
Social work As per therapy, pt may be a good candidate for inpt rehab. SW spoke w/pt and in room. We reviewed all options at discharge, including SNF placement, rehab and home health. SW explained the difference to pt and between inpt rehab and half-way facility. SW provided lists to pt and of half-way facilities and inpt rehabs in network w/insurance, in preferred geographic area, and complete with quality and resource use data. SW also explained the coverage by insurance for SNF vs inpt rehab, as pt is here observation. Pt and in agreement w/referral to the inpt rehab unit here at [facility]. SW explained will make the referral, and it is anticipated pt will be here through the weekend. SW to follow up on Monday. SW called the referral phone and left a message for pt to be reviewed for inpt rehab Monday. KATIE Monterroso
[2023-05-20 15:20] VITALS: BP 135/82; PULSE 58; RESP 18; TEMP 36.7; O2SAT 94
--- NOTE | 2023-05-20 16:06 | CM.UR ---
JAYNE BRUMFIELD: JAYNE BRUMFIELD in to complete FUNES form at this time.?RN OCTAVIANO explained FUNES for to patient, patient nodded head and voiced understanding.?Patient signed FUNES Form and filed in chart.?Patient provided with copy of signed FUNES form.? Patient had no further questions or concerns.??Dilcia Michael RN CM
[2023-05-20 23:04] VITALS: BP 151/82; PULSE 63; RESP 16; TEMP 37.3; O2SAT 93
[2023-05-20] MEDS: OLANZapine 2.5 MG Tablet PO (23:10)
[2023-05-20] MEDS: Atorvastatin Calcium 40 MG Tablet PO (23:10)
[2023-05-21 03:55] VITALS: BP 157/77; PULSE 60; RESP 14; TEMP 36.2; O2SAT 93
[2023-05-21] MEDS: Acetaminophen 325 MG Tablet 650 MG PO ×2 (04:00→14:28)
[2023-05-21] MEDS: Levothyroxine 50 MCG Tablet PO (05:33)
--- NOTE | 2023-05-21 07:53 | PN.HOSP_ITS ---
Reason for Visit Reason for Visit: Diagnoses Adult failure to thrive (05/19/23) Subjective Subjective Patient seen much more interactive compared to day prior. Plans for patient to be transferred to a care home facility pending insurance approval Objective Data Objective Data Vital Signs: Vital Signs Temp Pulse Resp BP Pulse Ox O2 Del Method 97.2 F L 60 14 157/77 H 93 Room Air 05/21/23 03:55 05/21/23 03:55 05/21/23 03:55 05/21/23 03:55 05/21/23 03:55 05/21/23 03:57 Oxygen Delivery Method Room Air Weight: 92.6 kg Body Mass Index (BMI) 30.1 Intake & Output: Intake and Output for Last 24 Hours 05/19/23 05/20/23 05/21/23 23:59 23:59 23:59 Intake Total 490 / 490 960 / 1200 340 / 340 Output Total 325 / 325 Balance 490 / 490 960 / 1075 15 Lab / Micro Data 05/19/23 13:37 05/19/23 13:37 Physical Exam Narrative GENERAL: cooperative HEENT: Atraumatic; normocephalic EYES; Anicteric, Normal Conjunctiva NECK; supple, normal thyroid, RESPIRATORY: Diminished to auscultation CARDIOVASCULAR: Regular S1 S2, GI: soft, normoactive bowel sounds, : No Renal angle tenderness; EXTREMITIES: No edema, no clubbing, MUSCULOSKELETAL: no muscle wasting NEURO: Awake; no lateralizing signs. SKIN: No Rash PSYCH; Flat affect Assessment & Plan Assessment/Plan (1) Adult failure to thrive: PLAN: Plan Patient is a 72-year-old gentleman who underwent kyphoplasty by Dr. Modi on 05/16/2023 presented to the emergency department with progressive generalized w eakness and assessment of adult failure to thrive made admitted to regular nursing floor for further management 1. Physical deconditioning - Requested for PT OT eval and social media manager to assist with discharge planning ? 05/21/2023 awaiting insurance precertification prior to transfer to skilled n ursing facility we will continue with PT OT as tolerated per nursing staff patient currently requiring 2 person assist 2. Chronic back pain ? With history of previous compression fractures. Patient underwent kyphoplasty on 05/16/2023. Admitted to regular nursing floor PT OT ordered in addition to pain management 3. History of cardiac arrest secondary to V-fib ? Status post AICD placement. Patient is on amiodarone did continue 4. 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 Hypothyroidism - Patient is on levothyroxine home dose continued 6. Dyslipidemia -Patient is on statin therapy, continued at home dose 7. Hypertension - Blood pressure controlled, home medications continued with dose adjustment as needed 8. GERD ? Patient is on PPI 9. DVT prophylaxis ? SC Lovenox Time spent in the patient's overall evaluation,decision-making process, review of diagnostic data, adjustment of management, discussion with other providers, nursing nursing and ancillary staff involved in patient's care documentation, 35 Minutes Charges/Coding Visit Charges Inpatient E&M: 83772 Subs Hosp L2
[2023-05-21 09:09] VITALS: BP 136/69; PULSE 63; RESP 18; TEMP 36.7; O2SAT 94
[2023-05-21] MEDS: Potassium Chloride Oral Tablet 20 MEQ PO (09:13)
[2023-05-21] MEDS: Aspirin E.C. 81 MG Tablet 162 MG PO (09:13)
[2023-05-21] MEDS: Pantoprazole Sodium 20 MG Tablet PO (09:14)
[2023-05-21] MEDS: DULoxetine Hcl 60 MG Capsule PO (09:14)
[2023-05-21] MEDS: Furosemide 40 MG Tablet PO (09:14)
[2023-05-21] MEDS: Amiodarone 200 MG Tablet 100 MG PO (09:14)
[2023-05-21] MEDS: Senna Tablet 1 TABLET PO ×2 (09:15→21:10)
[2023-05-21] MEDS: Mirtazapine 30 MG Tablet PO (09:15)
[2023-05-21 11:06] VITALS: O2SAT 94
[2023-05-21 15:26] VITALS: BP 151/88; PULSE 58; RESP 18; TEMP 36.9; O2SAT 95
[2023-05-21] MEDS: Atorvastatin Calcium 40 MG Tablet PO (21:10)
[2023-05-21] MEDS: OLANZapine 2.5 MG Tablet PO (21:10)
[2023-05-21 21:13] VITALS: BP 156/80; PULSE 58; RESP 16; TEMP 36.9; O2SAT 94
[2023-05-21] MEDS: 0.9% Saline Lock 10 ML Syringe IV (21:23)
[2023-05-22 03:43] VITALS: BP 145/69; PULSE 58; RESP 18; TEMP 36.7; O2SAT 92
[2023-05-22] MEDS: Acetaminophen 325 MG Tablet 650 MG PO (03:48)
[2023-05-22] MEDS: Levothyroxine 25 MCG TABLET PO (05:58)
[2023-05-22 06:25] LABS: Absolute Lymphocyte Count 1.06 X10^3/uL (0.83-4.51); Absolute Neutrophil Count 4.5 X10^3/uL (2.0-7.7); Basophil# 0.03 X10^3/uL; Basophil% 0.5 % (0-1); Eosinophil# 0.15 X10^3/uL; Eosinophils% 2.3 % (0-5); Hematocrit 40.3 % (40-54); Hemoglobin 13.2 g/dL (13.0-16.5); Lymphocyte # 1.06 X10^3/ul (0.83-4.51); Lymphocyte % 16.2 % (19-41); Mean Corp Hgb Conc 32.8 g/dL (32-36); Mean Corpuscular Hgb 33.2 pg (27.0-32.0); Mean Corpuscular Volume 101.3 fL (80-94); Monocyte# 0.75 X10^3/uL; Monocyte% 11.5 % (0-10); NRBC Flagged by Analyzer 0 % (0-5); Neutrophil # 4.51 X10^3/uL (2.7-7.7); Platelet Count 274 K/mm3 (150-450); RBC Distribution Width CV 13.3 % (11.6-14.6); RBC Distribution Width SD 49.9 fl (35.1-43.9); Red Blood Count 3.98 M/mm3 (4.6-6.2); White Blood Count 6.5 K/mm3 (4.4-11.0)
[2023-05-22 07:00] LABS: Anion Gap 4 (5-15); BUN 15 mg/dL (7-18); BUN/Creat Ratio 14.9 RATIO (10-20); Calcium,Total 8.9 mg/dL (8.5-10.1); Chloride 109 mmol/L (98-107); Creatinine, Serum 1.01 mg/dL (0.70-1.30); EST Glomerular Filtration Rate 78 mL/min (>60); Est Glom Filt Rate - Afr Amer 94 mL/min (>60); Estimated Creatinine Clearance 68.06 ml/min; Glucose 94 mg/dL (74-106); Magnesium 2.1 mg/dL (1.6-2.6); Potassium 3.4 mmol/L (3.5-5.1); Sodium Level 141 mmol/L (136-145)
[2023-05-22 09:40] VITALS: BP 155/98; PULSE 55; RESP 18; TEMP 36.7; O2SAT 96
[2023-05-22] MEDS: Aspirin E.C. 81 MG Tablet 162 MG PO (09:55)
[2023-05-22] MEDS: Potassium Chloride Oral Tablet 20 MEQ PO (09:55)
[2023-05-22] MEDS: Amiodarone 200 MG Tablet 100 MG PO (09:55)
[2023-05-22] MEDS: Enoxaparin 40 MG/0.4 ML Syringe SC (09:56)
[2023-05-22] MEDS: DULoxetine Hcl 60 MG Capsule PO (09:56)
[2023-05-22] MEDS: Furosemide 40 MG Tablet PO (09:56)
[2023-05-22] MEDS: Mirtazapine 30 MG Tablet PO (09:58)
[2023-05-22] MEDS: Pantoprazole Sodium 20 MG Tablet PO (09:58)
[2023-05-22] MEDS: Senna Tablet 1 TABLET PO (09:58)
--- NOTE | 2023-05-22 13:56 | CASEMGMT ---
Social Work SW updated by IRU administrative staff, Margo, patient has been accepted to [facility] IRU. SW updated MD Díaz via backline patient was accepted to IRU, reports plan to D/C today. SW met with patient and introduced self and role as [facility] SW. Patient seated in hospital chair and agreeable to speak with SW. SW updated patient he was accepted to IRU, patient voiced understanding and requesting SW update his . SW contacted patient's and provided her with update, patient's voices understanding and states she will be in at some point today to see the patient. SW updated chemist water purification and patient's RN of acceptance. Plan: [facility] Charity TELLEZ, RANDOLPH
--- NOTE | 2023-05-22 14:58 | TREXTCAR_ITS ---
Diet Diet Order/Speech Therapy: 05/19/23 17:40 Diet: Regular - General Food consistency:: Regular Liquid Consistency:: Regular/Thin Dietary Modifications:: Sodium Restricted Type of Dietary Supplement:: [place] Breakfast Diet Comments: carnation w/ breakfast Routine Orders/Code Status Enema Type: Fleetz Enema Frequency: Daily PRN Suppository Type: Dulcolax 10mg Suppository Frequency: Daily PRN O2 Frequency: PRN Keep PO Greater than or Equal to (%): 90 Therapies Weight Bearing: Weight bearing as tolerated Physical Therapy: Eval and Treat Occupational Therapy: Eval and Treat Problem/Diagnosis (1) Adult failure to thrive: Status: Acute Code(s): R62.7 - Adult failure to thrive Allergies/Procedures Done in Hospital Allergies lisinopril Adverse Reaction (Verified 05/19/23 16:49) cough Procedures: None Type of Care/Length of Stay Estimated LOS: Convalescent Care Less Than 30 days Type of Care Needed: Skilled Rehab Potential: Fair Prognosis: Fair Additional Orders/Day of Discharge Day of Discharge: 05/22/23 Dietary and Speech Recommendations Dietitian Recommendations/Changes: Continue with Regular - General diet with sodium restriction at this time. Will order [place] Breakfast Essentials w/ breakfast to help increase oral intakes. Will modify interventions as needed upon f/u. Discharge Plan Admission Admit Date/Time: 05/19/23 16:29 Primary Reason for Your Visit: failure to thrive Attending Provider: Miriam Díaz Primary Care Provider: Kaylin Hui Consulting Providers: Aurelio Dobbs; Mathieu Abdullahi Discharge Orders/Prescriptions Prescriptions: Continued nitroglycerin 0.4 mg tablet, sublingual 0.4 mg SUBLINGUAL Q5-15M PRN (Reason: Pain Or Fever) atorvastatin 40 mg tablet 40 mg PO QDAY aspirin 81 mg tablet,delayed release (DR/EC) 81 mg PO QDAY Rx Instructions: 2 tabs daily omeprazole 20 mg tablet,delayed release (DR/EC) 20 mg PO DAILY mirtazapine [Remeron] 30 mg tablet 30 mg PO DAILY potassium chloride 10 mEq tablet extended release 20 meq PO BID losartan 25 mg tablet 25 mg PO BID levothyroxine [Euthyrox] 25 mcg tablet 25 mcg PO .M-F acetaminophen [Tylenol Arthritis Pain] 650 mg tablet extended release 1,300 mg PO Q8H PRN lorazepam 0.5 mg tablet 0.5 mg PO DAILY PRN olanzapine 2.5 mg tablet 2.5 mg PO QPM levothyroxine 25 mcg tablet 50 mcg PO .Sa/Reynolds duloxetine 60 mg capsule,delayed release(DR/EC) 60 mg PO DAILY oxycodone-acetaminophen 5-325 mg tablet 1 tab PO Q8H PRN (Reason: pain) furosemide 40 mg tablet 40 mg PO DAILY hydrocodone-acetaminophen 5-325 mg tablet Myrbetriq 50 mg tablet extended release 24 hr PO Patient Comments: TAKE 1 TABLET BY MOUTH ONCE DAILY amiodarone 200 mg tablet 100 mg PO QDAY Qty: 90 3RF metolazone 2.5 mg tablet 2.5 mg PO .Every 4 days PRN (Reason: FLUID RETENTION) Qty: 30 3RF Referrals / Follow Up: Kaylin Hui PA [Primary Care Provider] - Within 2 Weeks Disposition Disposition (needs filled in before D/C Order can be placed): [facility]
--- NOTE | 2023-05-22 14:58 | PCM.DC.SUM ---
Providers Date of Admission: 05/19/23 Date of Discharge: 05/22/23 Primary Care Physician: MARIELENA Edwards Reason For Visit: DEBILITY Diagnosis Discharge Diagnosis (1) Adult failure to thrive: Status: Acute Code(s): R62.7 - Adult failure to thrive Medications at Discharge Home Medications atorvastatin 40 mg tablet 40 mg PO QDAY cholesterol 04/05/18 nitroglycerin 0.4 mg sublingual tablet 0.4 mg sublingual Q5-15M PRN pain 04/05/18 mirtazapine 30 mg tablet (Remeron) 30 mg PO DAILY 09/26/18 omeprazole 20 mg tablet,delayed release 20 mg PO DAILY reflux 09/26/18 potassium chloride 10 mEq tablet,extended release 20 meq PO BID supplement 11/18/19 losartan 25 mg tablet 25 mg PO BID blood pressure 02/17/21 acetaminophen 650 mg tablet,extended release (Tylenol Arthritis Pain) 1,300 mg PO Q8H PRN pain 08/10/21 lorazepam 0.5 mg tablet 0.5 mg PO DAILY PRN anxiety 08/10/21 aspirin 81 mg tablet,delayed release 81 mg PO QDAY heart health 02/01/22 amiodarone 200 mg tablet 100 mg (1/2 x 200 mg) PO QDAY heart rate #90 tabs 08/08/22 metolazone 2.5 mg tablet 2.5 mg PO .Every 4 days PRN FLUID RETENTION #30 tabs 11/15/22 duloxetine 60 mg capsule,delayed release 60 mg PO DAILY mental health 03/21/23 furosemide 40 mg tablet 40 mg PO DAILY diuretic 03/21/23 levothyroxine 25 mcg tablet 50 mcg PO .Sa/Reynolds thyroid 03/21/23 levothyroxine 25 mcg tablet (Euthyrox) 25 mcg PO .M-F thyroid 03/21/23 olanzapine 2.5 mg tablet 2.5 mg PO QPM 03/21/23 oxycodone-acetaminophen 5 mg-325 mg tablet 1 tab PO Q8H PRN pain 03/21/23 hydrocodone-acetaminophen 5-325mg 5mg-325mg tab pain 05/19/23 mirabegron 50 mg tablet,extended release 24 hr (Myrbetriq) mg PO 05/19/23 Hospital Course Operations None Procedures None Summary of Care Provided Minutes Spent on Discharge: 45 Hospital Course: Patient is a 72 y/o with a PMH as outlined who was admitted from an outside hospital ED with a complaint of worsening weakness. He had a history of ventricular fibrillation s/p ICD palcement, CAD, hypertension, hypothyroidism and recent kyphoplasty with spine surgery on outpatient basis as well as CVA with residual speech deficit. He had had the kyphoplasty done for compression fractures in his back. said he had been unsteady on his feet and falling frequently. She therefore didnt think she could care for him. He was admitted to be managed for debility and weakness. He worked with physical therapy and was deemed as needing intensive rehab. He was therefore discharged to acute rehab on 05/22/2023. Patient seen and examined prior to discharge. He had no complaints and had an uneventful night. Review of systems is otherwise negative. Labs and vitals reviewed. Home meds reviewed and reconciled. Physical Exam Const alert, oriented x3, no apparent distress and no limitations General Appearance: cooperative, comfortable and well kempt Orientation / Consciousness: awake Exam Limitations: no limitations HEENT normocephalic, head/scalp atraumatic, hearing grossly normal bilaterally and moist oral mucous membranes Mouth: oral and palatal mucosa normal Eyes PERRL, EOMs intact bilaterally and conjunctivae normal Neck no lymphadenopathy and supple Resp normal respiratory effort, no retractions, no use of accessory muscles and clear to auscultation bilaterally Cardio regular rate, regular rhythm, S1 normal heart sound, S2 normal heart sound and no murmurs GI normal to inspection, nondistended, normoactive bowel sounds, soft to palpation, non-tender and non-distended Extremity normal to inspection, full ROM and no clubbing, cyanosis or edema Skin no rashes or lesions noted, no wounds and skin turgor normal Neuro oriented x3, CN's II-XII intact bilaterally, moves all extremities and no focal motor deficits Sensorium / Orientation: awake and alert Speech: speech normal Motor Exam: strength 5/5 throughout Psych affect normal Weight / BMI Weight Weight: 204 lb 2.369 oz Body Mass Index (BMI) 30.1 ABG / Lab / Microbiology Data 05/22/23 05:40 05/22/23 05:40 Laboratory: Laboratory Results - last 24 hr 05/22/23 05:40: WBC 6.5, RBC 3.98 L, Hgb 13.2, Hct 40.3, MCV 101.3 H, MCH 33.2 H, MCHC 32.8, RDW Std Deviation 49.9 H, RDW Coeff of Elpidio 13.3, Plt Count 274, MPV 9.0, Immature Gran % (Auto) 0.500, Neut % (Auto) 69.0, Lymph % (Auto) 16.2 L, [place] % (Auto) 11.5 H, Eos % (Auto) 2.3, Baso % (Auto) 0.5, Absolute Neuts (auto) 4.5, Absolute Lymphs (auto) 1.06, Nucleated RBC % 0, Sodium 141, Potassium 3.4 L, Chloride 109 H, Carbon Dioxide 28.0, Anion Gap 4 L, BUN 15, Creatinine 1.01, Estim Creat Clear Calc 68.06, Est GFR (MDRD) Af Amer 94, Est GFR (MDRD) Non-Af 78, BUN/Creatinine Ratio 14.9, Glucose 94, Calcium 8.9, Phosphorus 3.0, Magnesium 2.1 D/C Instructions Discharge Diet: Low fat / Low cholesterol Discharge Activity: Return to Normal Activity Weight Bearing Status: Weight bearing as tolerated Call your doctor if you observe: Fever of 101 or Higher, Shortness of breath, Dizziness, Swelling in the ankles and Chest pain Meaningful Use Info Meaningful Use Diagnoses (Choose all that apply): None applicable Discharge Plan Admission Admit Date/Time: 05/19/23 16:29 Primary Reason for Your Visit: failure to thrive Attending Provider: Miriam Díaz Primary Care Provider: Kaylin Hui Consulting Providers: Aurelio Dobbs; Mathieu Abdullahi Discharge Orders/Prescriptions Prescriptions: Continued nitroglycerin 0.4 mg tablet, sublingual 0.4 mg SUBLINGUAL Q5-15M PRN (Reason: pain) atorvastatin 40 mg tablet 40 mg PO QDAY aspirin 81 mg tablet,delayed release (DR/EC) 81 mg PO QDAY Rx Instructions: 2 tabs daily omeprazole 20 mg tablet,delayed release (DR/EC) 20 mg PO DAILY mirtazapine [Remeron] 30 mg tablet 30 mg PO DAILY potassium chloride 10 mEq tablet extended release 20 meq PO BID losartan 25 mg tablet 25 mg PO BID levothyroxine [Euthyrox] 25 mcg tablet 25 mcg PO .M-F acetaminophen [Tylenol Arthritis Pain] 650 mg tablet extended release 1,300 mg PO Q8H PRN (Reason: pain) lorazepam 0.5 mg tablet 0.5 mg PO DAILY PRN (Reason: anxiety) olanzapine 2.5 mg tablet 2.5 mg PO QPM levothyroxine 25 mcg tablet 50 mcg PO .Sa/Reynolds duloxetine 60 mg capsule,delayed release(DR/EC) 60 mg PO DAILY oxycodone-acetaminophen 5-325 mg tablet 1 tab PO Q8H PRN (Reason: pain) furosemide 40 mg tablet 40 mg PO DAILY hydrocodone-acetaminophen 5-325 mg tablet Myrbetriq 50 mg tablet extended release 24 hr PO Patient Comments: TAKE 1 TABLET BY MOUTH ONCE DAILY amiodarone 200 mg tablet 100 mg PO QDAY Qty: 90 3RF metolazone 2.5 mg tablet 2.5 mg PO .Every 4 days PRN (Reason: FLUID RETENTION) Qty: 30 3RF Referrals / Follow Up: Kaylin Hui PA [Primary Care Provider] - Within 2 Weeks Disposition Disposition (needs filled in before D/C Order can be placed): Inpatient Rehab Unit/Facility Charges/Coding Visit Charges Inpatient E&M: 75719 Disch Hosp >30min
[2023-05-22 16:10] VITALS: BP 158/89; PULSE 60; RESP 18; TEMP 36.4; O2SAT 95
== END 2023-05-22 14:57 ==
LOC: ED 16:27 → PCU 16:50
PROVIDERS: Internal Medicine; Nurse Practitioner; Admitting Provider Hospitalist; Emergency Provider Emergency Medicine; PCP Physician Assistant; Visit Provider Student in an Organized Health Care Education/Training Program
DX: R62.7 Adult failure to thrive (principal); I11.0 Hypertensive heart disease with heart failure; I50.9 Heart failure, unspecified; I25.5 Ischemic cardiomyopathy; I25.10 Atherosclerotic heart disease of native coronary artery without angina pectoris; I69.320 Aphasia following cerebral infarction; E03.9 Hypothyroidism, unspecified; G89.29 Other chronic pain; R53.81 Other malaise; E78.5 Hyperlipidemia, unspecified; Z87.891 Personal history of nicotine dependence; R53.1 Weakness; Z79.899 Other long term (current) drug therapy; Z79.890 Hormone replacement therapy; Z79.82 Long term (current) use of aspirin; Z95.810 Presence of automatic (implantable) cardiac defibrillator; K21.9 Gastro-esophageal reflux disease without esophagitis; N40.0 Benign prostatic hyperplasia without lower urinary tract symptoms
CPT/HCPCS: 96372; 96374; 99284; 36415; 80048; 81001; 83735; 84100; 85025; 93005; 97110; 97162; 97166; 97530; 97535; 97802; 99221; A4216; G0378

== ENCOUNTER 2023-05-22 17:11 | Inpatient (IN) | payer MEDICARE, BC, SELFPAY ==
[2023-05-22 17:23] VITALS: BP 164/89; PULSE 57; RESP 18; TEMP 36.7; O2SAT 95; BMI 30.1
[2023-05-22 21:04] VITALS: BP 161/86; PULSE 57; RESP 18; TEMP 36.9; O2SAT 94
[2023-05-22] MEDS: Losartan Potassium 25 MG Tablet PO (21:08)
[2023-05-22] MEDS: OLANZapine 2.5 MG Tablet PO (21:08)
[2023-05-22] MEDS: Mirtazapine 30 MG Tablet PO (21:09)
[2023-05-22] MEDS: Atorvastatin Calcium 40 MG Tablet PO (21:09)
[2023-05-22] MEDS: Potassium Chloride Oral Tablet 20 MEQ PO (21:09)
--- NOTE | 2023-05-22 22:05 | NURSING ---
Pt noted with home CPAP at bedside, RT contacted to review and place on to pt. 02 is intact via NC at 2 L at this time.
[2023-05-23] MEDS: Levothyroxine 25 MCG TABLET PO (05:40)
[2023-05-23 05:44] VITALS: BP 145/84; BP 148/82; BP 150/85; PULSE 52; PULSE 53; PULSE 56
[2023-05-23 05:44] LABS: Hematocrit 39.1 % (40-54); Hemoglobin 12.7 g/dL (13.0-16.5); Mean Corp Hgb Conc 32.5 g/dL (32-36); Mean Corpuscular Hgb 33.2 pg (27.0-32.0); Mean Corpuscular Volume 102.4 fL (80-94); Mean Platelet Vol. 8.6 fl (6.2-12.0); Platelet Count 253 K/mm3 (150-450); RBC Distribution Width CV 13.4 % (11.6-14.6); RBC Distribution Width SD 50.8 fl (35.1-43.9); Red Blood Count 3.82 M/mm3 (4.6-6.2); White Blood Count 6.3 K/mm3 (4.4-11.0)
[2023-05-23 06:52] LABS: ALB/GLOB Ratio 0.9 RATIO (0.9-2.4); AST(SGOT) 16 U/L (15-37); Alanine Aminotransfer ALT/SGPT 21 U/L (16-61); Alkaline Phosphatase 107 U/L (45-117); Anion Gap 3 (5-15); BUN 16 mg/dL (7-18); BUN/Creat Ratio 13.6 RATIO (10-20); Calcium,Total 8.9 mg/dL (8.5-10.1); Chloride 109 mmol/L (98-107); Creatinine, Serum 1.18 mg/dL (0.70-1.30); EST Glomerular Filtration Rate 65 mL/min (>60); Est Glom Filt Rate - Afr Amer 78 mL/min (>60); Estimated Creatinine Clearance 56.36 ml/min; Globulin 3.5 g/dL (2.2-4.2); Glucose 91 mg/dL (74-106); Magnesium 2.1 mg/dL (1.6-2.6); Phosphorus 3.2 mg/dL (2.5-4.9); Potassium 3.6 mmol/L (3.5-5.1); Protein, Total 6.5 g/dL (6.4-8.2); Sodium Level 142 mmol/L (136-145); T4 Free Direct 1.23 ng/dL (0.76-1.46); Thyroid Stim Hormone (TSH) 3.11 uIU/mL (0.358-3.74)
[2023-05-23 07:30] VITALS: O2SAT 94
[2023-05-23 07:37] VITALS: BP 148/82; PULSE 51; RESP 16; TEMP 36.3; O2SAT 92
[2023-05-23] MEDS: Potassium Chloride Oral Tablet 20 MEQ PO ×2 (08:00→20:04)
[2023-05-23] MEDS: Furosemide 40 MG Tablet PO (08:00)
[2023-05-23] MEDS: Pantoprazole Sodium 20 MG Tablet PO (08:00)
[2023-05-23] MEDS: Mirabegron 50 MG TAB.ER.24H PO (08:00)
[2023-05-23] MEDS: Senna/Docusate Sodium 1 Tablet 2 TABLET PO ×2 (08:01→20:04)
[2023-05-23] MEDS: Losartan Potassium 25 MG Tablet PO ×2 (08:01→20:03)
[2023-05-23] MEDS: Aspirin E.C. 81 MG Tablet 162 MG PO (08:01)
[2023-05-23] MEDS: Amiodarone 200 MG Tablet 100 MG PO (08:01)
[2023-05-23] MEDS: DULoxetine Hcl 60 MG Capsule PO (08:01)
[2023-05-23] MEDS: Enoxaparin 40 MG/0.4 ML Syringe SC (08:36)
[2023-05-23] MEDS: oxyCODONE 5 MG Tablet PO ×2 (11:00→20:08)
--- NOTE | 2023-05-23 11:01 | CASEMGMT ---
Social Work Pt agreed for to bring in copies of advanced directives. Mis Edge, [employer]ER
--- NOTE | 2023-05-23 15:37 | PCM.HP.STD ---
[facility] - General General Date of Admission: 05/22/23 Date of Service: 05/23/23 Chief Complaint: Debility due to remote stroke and recent fall resulting in Fractured ribs and Vertebral fractures. HPI Narrative AMANDA KINNEY, is a 72 M with a PMH of ischemic CVA in 2018 (occurred in the setting of cardiac arrest) with persistent expressive aphasia, tracheal stenosis, cardiac arrest due to V-fib, history of AICD placement, coronary artery disease, congestive heart failure/ischemic cardiomyopathy, hypertension, hypothyroidism, chronic back pain, alcoholism, tobacco dependence in remission, depression/anxiety, vertebral compression fxs and rib fractures due to a fall in February and intention tremors who presented to the ED at [facility] on 05/19/23 c/o of weakness and difficulty walking. Three days prior to the ED visit he had vertebral kyphoplasty by Dr. Rogers. Due to pain he spent a lot of time in bed since February and has gotten very debilitated. He has been having difficulty walking and has had several falls. He does not walk with an AD. 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 He also tells me that he had a syncopal episode in the past month and this lead to a visit with Dr. Ceron. He had an EEG but, he does not know the results. He admits to having lightheadedness when he stands at times. He is taking Lasix 40 mg daily and Metolazone 2.5 mg every 4 days NE and increased leg swelling or increasing shortness of breath.. He follows with Dr. Johnson from cardiology. He had an echocardiogram done in March 2023 that showed an ejection fraction of 40% with normal diastology. There were regional wall motion abnormalities. The right ventricle was normal size with normal systolic function. Left and right atria were normal and the bubble contrast study was negative for right to left intra-atrial shunt. Right ventricular systolic pressure was estimated to be 27 and there was no significant valvular heart disease. He tells me he weighs himself every morning and his weight has been stable. He follows with a psychiatrist who prescribes his medications but does not do therapy with him. He has a history of alcohol abuse and is currently drinking 8-9 beers daily. His has told him that he needs to stop drinking or he cannot come back home. He has been to [facility] for 2 to 3 months in the past but at that time he did not want to stop drinking. He now says he wants to stop. He has never been to AA. His is not a drinker. He drives but, he tells me that he does not drink and drive. He started drinking socially at the age of 42 and then this escalated due to boredom. While in the hospital he was seen by PT/OT and acute rehab was recommended at [place]. He was transferred to the acute inpt rehab unit at [facility] on 05/22/23 for 3 hours of therapy daily to restore strength/function/independence at or near his level prior to the fall in February. He last had his PM evaluated in February 2023. There were no episodes of VT/VF since 12/24/2022. Ventricular paced rhythm was less than 1%. The estimated battery life was 5.1 to 5.[address] Ceron's consult in the EMR. He saw Mr. Kinney for 3 syncopal episodes associated with coughing. At the time he had a tremor only with activity and no resting tremor. He has no cogwheel rigidity and he does not shuffle. He had an EEG but the results are not available at this time. His last visit with Dr. Johnson was 03/21/2023. This visit was also for syncope. At that visit he had significant orthostatic hypotension and was counseled to decrease his Lasix to 40 mg once daily and take a second dose only if needed for increasing shortness of breath, increased weight or increased edema. He weighed 214 at this visit and today in rehab he weighs 202. He had a carotid ultrasound within the past year that showed no hemodynamically significant stenosis. [facility] Medical History (Updated 05/23/23 @ 16:[address] Gris Duran DO) Alcoholism Anxiety and depression Aphonia Atherosclerotic heart disease of [place] coronary artery without angina pectoris Bifascicular block BPH (benign prostatic hyperplasia) Bradycardia Cardiac arrest with ventricular fibrillation Congestive heart failure (CHF) CVA (cerebral vascular accident) Dysphagia Dyspnea on exertion Essential hypertension Fatigue Former smoker GERD (gastroesophageal reflux disease) History of tracheal stenosis Hyperlipidemia Hypertension Hypothyroidism ICD (implantable cardioverter-defibrillator) in place Ischemic cardiomyopathy Low back pain Myocardial infarct Non-rheumatic mitral regurgitation Right bundle branch block Trigeminal neuralgia Home Medications atorvastatin 40 mg tablet 40 mg PO .HS cholesterol 04/05/18 [History Last Taken Unknown] nitroglycerin 0.4 mg sublingual tablet 0.4 mg sublingual Q5-15M PRN pain 04/05/18 [History Last Taken Unknown] mirtazapine 30 mg tablet (Remeron) 30 mg PO .HS SLEEP 09/26/18 [History Last Taken Unknown] omeprazole 20 mg tablet,delayed release 20 mg PO DAILY reflux 09/26/18 [History Last Taken 06/17/20 09:30] potassium chloride 10 mEq tablet,extended release 20 meq PO BID supplement 11/18/19 [History Last Taken Unknown] losartan 25 mg tablet 25 mg PO BID blood pressure 02/17/21 [History Last Taken Unknown] lorazepam 0.5 mg tablet 0.5 mg PO DAILY PRN anxiety 08/10/21 [History Last Taken Unknown] aspirin 81 mg tablet,delayed release 81 mg PO QDAY heart health 02/01/22 [History Last Taken Unknown] amiodarone 200 mg tablet 100 mg (1/2 x 200 mg) PO QDAY heart rate #90 tabs 08/08/22 [Rx Last Taken Unknown] duloxetine 60 mg capsule,delayed release 60 mg PO DAILY mental health 03/21/23 [History Last Taken Unknown] furosemide 40 mg tablet 40 mg PO DAILY diuretic 03/21/23 [History Last Taken Unknown] levothyroxine 25 mcg tablet 50 mcg PO .Sa/Reynolds thyroid 03/21/23 [History Last Taken Unknown] levothyroxine 25 mcg tablet (Euthyrox) 25 mcg PO .M-F thyroid 03/21/23 [History Last Taken Unknown] olanzapine 2.5 mg tablet 2.5 mg PO 1700 Mental disorder 03/21/23 [History Last Taken Unknown] mirabegron 50 mg tablet,extended release 24 hr (Myrbetriq) 50 mg PO DAILY BLADDER 05/19/23 [History Last Taken 05/19/23] acetaminophen 500 mg capsule 1,000 mg PO Q8H PRN PRN Pain 1-10 05/22/23 [History Last Taken Unknown] metolazone 2.5 mg tablet 2.5 mg PO DAILY PRN FLUID RETENTION 05/22/23 [History Last Taken Unknown] oxycodone 5 mg capsule 5 mg PO Q8H Pain 05/22/23 [History Last Taken Unknown] Allergy/AdvReac Type Severity Reaction Status Date / Time lisinopril AdvReac cough Verified 05/19/23 16:49 Family History (Updated 05/23/23 @ 16:[address] Gris Duran DO) Mother Heart disease Cancer breast CAD (coronary artery disease) Breast cancer Father Colon cancer Sister Breast cancer Rheumatoid arthritis Surgical History (Updated 05/23/23 @ 16:[address] Gris Duran DO) Aortocoronary bypass status (~09/28/17) History of cardiac radiofrequency ablation History of implantable cardioverter-defibrillator (ICD) placement (~11/10/17) History of kyphoplasty History of resection and anastomosis of trachea (~04/2021) Hx of CABG Social History (Updated 05/23/23 @ 16:[address] Gris Duran DO) household members: spouse number of children: 2 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 Admits to 8-9 beers a day at the present time. substance use type: does not use caffeine: No ROS ROS Narrative He has halting speech and trouble word finding but, with some patience he was able to answer most of my questions. Review of Systems ROS Unobtainable: Denies due to encephalopathy, due to endotracheal tube, due to mental condition or due to mental status Constitutional Constitutional: Reports fatigue, weakness and other Details: Tells me that he wears CPAP every night. ; Denies anorexia, change in weight, chills, fever(s), night sweats or weight gain Eyes Eyes: Denies blurry vision, change in vision, eye pain or loss of vision ENT HEENT: Reports disequillibrium, dizziness and dry mouth; Denies abnormal hearing, dysphagia, halitosis, headache(s), hearing loss, nasal congestion or sore throat Cardiovascular Cardiovascular: Reports dyspnea on exertion and lightheadedness; Denies chest pain, edema, orthopnea, palpitations, paroxysmal nocturnal dyspnea or syncope Respiratory/Chest Respiratory/Chest: Reports cough, dyspnea and shortness of breath with exertion; Denies shortness of breath at rest or wheezing Gastrointestinal Gastrointestinal: Denies abdominal pain, constipation, diarrhea, dyspepsia, hematemesis, hematochezia, nausea or vomiting Genitourinary Genitourinary: Reports other Details: He tells me that his urine is very dark and sometimes appears orange. He feels as though he completely empties his bladder when he does urinate. ; Denies dysuria, hematuria, nocturia, urinary frequency, urinary hesitancy, urinary incontinence or urinary urgency Musculoskeletal Musculoskeletal: Reports back pain; Denies joint pain, joint swelling or neck pain Integumentary Integumentary: Reports alopecia and dry skin; Denies non-healing lesions Neurologic Neurologic: Reports disequilibrium, dizziness, focal weakness, syncope, weakness and other Details: He is mildly weaker on the right side secondary to ischemic CVA in 2018. ; Denies confusion, headache(s), paresthesias, restless legs, seizures, tremor(s) or vertigo Psychiatric Psychiatric: Reports other Details: He tells me that since his stroke he sometimes cries for no reason. ; Denies anxiety, depression, homicidal ideation or suicidal ideation Endocrine Endocrinology: Denies change in body appearance, polydipsia or polyuria Hematologic/Lymphatic Hematologic/Lymphatic: Denies easy bleeding, easy bruising or lymphadenopathy Allergic/Immunologic Allergic/Immunologic: Denies rhinitis, eczemia or asthma Vital Signs Vital Signs Vital Signs: 05/22/23 17:23 05/22/23 21:04 05/22/23 21:17 Temperature 98.0 F 98.5 F Temperature Source Temporal Temporal Pulse Rate 57 L 57 L Pulse Rate [Lying] Pulse Rate [Sitting (for 1 minute prior to obtaining)] Pulse Rate [Standing (for 1 minute prior to obtaining)] Pulse Strength Respiratory Rate 18 18 Respiratory Effort Non-Labored Respiratory Depth Normal Respiratory Pattern Normal Blood Pressure 164/89 H 161/86 H Blood Pressure [Lying] Blood Pressure [Sitting (for 1 minute prior to obtaining)] Blood Pressure [Standing (for 1 minute prior to obtaining)] Blood Pressure Mean 114 111 Blood Pressure Mean [Lying] Blood Pressure Mean [Sitting (for 1 minute prior to obtaining)] Blood Pressure Mean [Standing (for 1 minute prior to obtaining)] Blood Pressure Source Monitor Monitor Blood Pressure Position Sitting Sitting Blood Pressure Location Left Arm Right Arm Pulse Ox 95 94 Oxygen Delivery Method Room Air Room Air Room Air 05/23/23 05:44 05/23/23 07:37 05/23/23 10:00 Temperature 97.3 F L Temperature Source Temporal Pulse Rate 51 L Pulse Rate [Lying] 52 L Pulse Rate [Sitting (for 1 minute prior to obtaining)] 53 L Pulse Rate [Standing (for 1 minute prior to obtaining)] 56 L Pulse Strength Normal (2+) Respiratory Rate 16 Respiratory Effort Respiratory Depth Respiratory Pattern Blood Pressure 148/82 H Blood Pressure [Lying] 148/82 H Blood Pressure [Sitting (for 1 minute prior to obtaining)] 150/85 H Blood Pressure [Standing (for 1 minute prior to obtaining)] 145/84 H Blood Pressure Mean 104 Blood Pressure Mean [Lying] 104 Blood Pressure Mean [Sitting (for 1 minute prior to obtaining)] 106 Blood Pressure Mean [Standing (for 1 minute prior to obtaining)] 104 Blood Pressure Source Monitor Blood Pressure Position Semi-Fowlers Blood Pressure Location Right Arm Pulse Ox 92 Oxygen Delivery Method Room Air 05/23/23 07:30 Temperature Temperature Source Pulse Rate Pulse Rate [Lying] Pulse Rate [Sitting (for 1 minute prior to obtaining)] Pulse Rate [Standing (for 1 minute prior to obtaining)] Pulse Strength Respiratory Rate Respiratory Effort Respiratory Depth Respiratory Pattern Blood Pressure Blood Pressure [Lying] Blood Pressure [Sitting (for 1 minute prior to obtaining)] Blood Pressure [Standing (for 1 minute prior to obtaining)] Blood Pressure Mean Blood Pressure Mean [Lying] Blood Pressure Mean [Sitting (for 1 minute prior to obtaining)] Blood Pressure Mean [Standing (for 1 minute prior to obtaining)] Blood Pressure Source Blood Pressure Position Blood Pressure Location Pulse Ox 94 Oxygen Delivery Method Room Air Weight Weight: 202 lb 13.204 oz Body Mass Index (BMI) 30.1 Physical Exam Const alert, oriented x3 and no apparent distress Constitutional Narrative: Lyimg in bed. General Appearance: cooperative, comfortable, well kempt and well developed; Negative for anxious, combative, disheveled or ill appearing Nutritional Appearance: overweight HEENT normocephalic, head/scalp atraumatic, hearing grossly normal bilaterally and oropharynx normal HEENT Narrative: Dry MM Eyes PERRL, EOMs intact bilaterally, conjunctivae normal, no scleral icterus and normal visual andersen by confrontation General Eye: normal appearance of both eyes Neck No nuchal rigidity, supple, No nodes and no carotid bruits Chest Chest: symmetrical chest wall rise Resp normal respiratory effort and clear to auscultation bilaterally Effort and Inspection: able to speak in complete sentences Cardio regular rate, regular rhythm, S1 normal heart sound, S2 normal heart sound, no murmurs, no rub and no gallops Cardio Narrative: Rama ectopy GI normal to inspection, nondistended, normoactive bowel sounds, soft to palpation and non-tender GI Narrative: No guarding with palpation. No masses and no hepatosplenomegaly. No bladder distention. no CVA tenderness Extremity no calf tenderness and no pedal edema Peripheral Pulses: Yes pulses 2+ throughout Skin no wounds and no jaundice General Skin Exam: no breakdown Neuro oriented x3, CN's II-XII intact bilaterally and moves all extremities Neuro Narrative: He has a slight decrease in strength on the R side compared to the L but, he overall has good strength. He has tremors of his hands and feet with activity only. No cogwheel rigidity, no bradykinesia, no increased tone, no resting tremor. Psych mental status grossly normal, thought process normal, cooperative and affect normal Psych Narrative: Word finding difficulties. Appearance: grossly normal, appropriate and well kempt Attitude: calm Activity / Motor Behavior: appropriate eye contact Mood & Affect: euthymic mood Results Lab / Micro Data 05/23/23 05:23 05/23/23 05:23 Labs: Laboratory Results - last 24 hr 05/23/23 05:23: WBC 6.3, RBC 3.82 L, Hgb 12.7 L, Hct 39.1 L, MCV 102.4 H, MCH 33.2 H, MCHC 32.5, RDW Std Deviation 50.8 H, RDW Coeff of Elpidio 13.4, Plt Count 253, MPV 8.6, Sodium 142, Potassium 3.6, Chloride 109 H, Carbon Dioxide 30.0, Anion Gap 3 L, BUN 16, Creatinine 1.18, Estim Creat Clear Calc 56.36, Est GFR (MDRD) Af Amer 78, Est GFR (MDRD) Non-Af 65, BUN/Creatinine Ratio 13.6, Glucose 91, Calcium 8.9, Phosphorus 3.2, Magnesium 2.1, Total Bilirubin 0.50, AST 16, ALT 21, Alkaline Phosphatase 107, Total Protein 6.5, Albumin 3.0 L, Globulin 3.5, Albumin/Globulin Ratio 0.9, TSH 3.11, Free T4 1.23 Assessment & Plan Assessment/Plan (1) Physical debility: (2) Vertebral compression fracture: QUALIFIERS: Encounter type: subsequent encounter Fracture of vertebra location: lumbar Lumbar vertebra fracture level: unspecified lumbar vertebra (3) History of kyphoplasty: (4) Low back pain: QUALIFIERS: Chronicity: chronic (5) Adult failure to thrive: (6) Syncope: (7) CVA (cerebral vascular accident): (8) Ischemic cardiomyopathy: (9) Aortocoronary bypass status: (10) History of implantable cardioverter-defibrillator (ICD) placement: (11) Atherosclerotic heart disease of [place] coronary artery without angina pectoris: QUALIFIERS: [place] vs. transplanted heart: [place] heart Qualified Code(s): I25.10 - Atherosclerotic heart disease of [place] coronary artery without angina pectoris (12) Hyperlipidemia: QUALIFIERS: Hyperlipidemia type: unspecified Qualified Code(s): E78.5 - Hyperlipidemia, unspecified (13) Bradycardia: (14) Right bundle branch block: (15) Bifascicular block: (16) Essential hypertension: (17) Hypothyroidism: (18) Dyslipidemia: (19) Alcoholism: (20) Macrocytic anemia: PLAN: Plan PLAN PT for gait stability OT for ADL's ST for evaluation Analgesics as needed Bowel protocol Fall precautions Assess for Anxiety/Depression GI prophylaxis with pantoprazole DVT prophylaxis with Lovenox Follow up with PCP, Dr. Ceron, Dr. Johnson and Dr. Rogers following DC from IP Rehab AM lab including CMP, CBC, Mag and Phos - personally reviewed. Folate, B12 and Hemoccult stool Counselling regarding ETOH cessation. Charges/Coding Visit Charges Inpatient E&M: 13488 Init Hosp L3
[2023-05-23 17:24] LABS: Vitamin B12 185 pg/mL (211-911)
[2023-05-23] MEDS: OLANZapine 2.5 MG Tablet PO (17:24)
--- NOTE | 2023-05-23 18:27 | REHABEVAL_ITS ---
Admission Information Primary Diagnosis:: Physical debility secondary to generalized weakness due to progressive decline since February 2023 Status Changes from Prescreening?: No changes Identified Actual Problem List:: Falls, Pain, ALteration in Cmfrt, Depression, Alteration in Nutrition, Mobility Impaired, Self Care Deficit, Alteration/ Air Exchange, Fluid Change-Dehydration and Alteration-Leisure Activ. Potential Problem List:: DVT, Bleeding, Infection, UTI, Aspiration, Falls, Skin Integrity and Depression Risk of Complications DVT: LMWH and KIMBERLY Hose Bleeding: Monitor Lab Values, Nursing to Teach Precautions for anti-coagulation therapy., Wound, if applicable, to be assessed every shift. and Stroke patients assessed for lethargy or change in status. Infection: Clinical Staff to Monitor for S/S of infection: and S/S of infection include fever, redness, warmth, etc. Urinary Tract Infection: Monitor for frequency, burning, discomfort, or incontinence. and Nursing will obtain urine sample for urinalysis and C&S when ordered. Aspiration: Clinical staff will monitor for coughing, drooling, congestion., Speech will evaluate swallowing and dsyphasia. and Nursing will monitor patient swallowing during meals. Falls: Patient will be evaluated for Fall Precautions and Patient will be placed on Fall Precautions as indicated per protocol. Skin Breakdown: Nursing will assess skin daily using assessment tool. and Nursing will place on Skin Breakdown Precautions as indicated. Pain: Clinical staff will assess patient's pain level per protocol., Medications will be given, if needed, and the pain level reassessed. and Other methods: Massage, distraction, decrease stimulus, etc. used PRN. Plan of Care Patient requires physician specializing in physical medicine and rehab oversight to provide close medical supervision of rehab issues including: Pain Management, Sleep Problems, Bowel and Bladder, Medical and co-morbidity Management, DVT prophylaxis, Rehabilitation Leadership and Coordination of treatment team Patient needs Physical Therapy: For a minimum of 1 hour and At least 5 out of 7 days Patient needs Physical Therapy to improve:: Mobility, Strengthening, Transfers, Stretching, ROM, Endurance, Stairs, Gait and Balance Patient needs Occupational Therapy: For a minimum of 1 hour and At least 5 out of 7 days Patient needs Occupational Therapy to improve ADL's incl.: Eating, Grooming, Bathing, Dressing, Toileting, Toilet transfers, Community Reintegration, Higher functioning activities, Household tasks, Adaptive Equipment, Splinting and Other activities as determined Patient requires speech therapy: For a minimum of 1 hour and At least 5 out of 7 days Patient requires speech therapy for: Swallowing, Cognition, Language Skills and Compensatory Strategies Patient requires 24/ Rehabilitation Nursing for: Pain Issues, Identifying and preventing risk factors, Monitoring and reporting current medical conditions, Assisting with ambulation, transfer, and all ADL's, Teaching patients about disease process and medications, Family teaching, Providing safe environment, Bowel and Bladder Issues, Skin integrity and Medication Management Patient needs Mine Motor Operator/ Case Management for: Discharge Planning, Arranging Home Equipment or Services and Family Interventions Patient needs Dietary and Nutrition Services for: Adequate Nutrition, Nutritional Supplements and Nutritional Education Goals Patient will remain: free from falls Patient will perform bed mobility at: MOD I level of assist. Patient will complete transfers from bed to chair at: MOD I level of assist. Patient will ambulate: - (350 feet with least restrictive device on various melvi faces at mod I.) Patient will complete upper body dressing at: MOD I level of assist. Patient will complete lower body dressing at: - (Supervision with adaptive equipment as needed.) Patient will complete toileting at: MOD I level of assist. Patient will perform bathing at: Standby Assist. Patient will complete grooming at: - (Supervision while standing at the sink) Patient will achieve: 12 stairs (With 1 handrail at standby assist to allow access to his basement.) Patient will have pain level of: of 3 or less Patient's skin will: remain intact Patient will receive: adequate nutrition. Discharge Planning Pt Prognosis for Sig. Practical Improv. w/in Reasonable Time: Good Estimated Length of stay (days): 21 Anticipated D/C Destination: Home with Outpt Therapy Was Preadmission Assessment Accurate?: Yes
[2023-05-23 19:27] VITALS: BP 141/72; PULSE 57; RESP 16; TEMP 36.1; O2SAT 92
[2023-05-23] MEDS: Atorvastatin Calcium 40 MG Tablet PO (20:03)
[2023-05-23] MEDS: Mirtazapine 30 MG Tablet PO (20:04)
[2023-05-23] MEDS: Acetaminophen 500 MG Tablet 1000 MG PO (20:07)
--- NOTE | 2023-05-24 04:18 | NURSING ---
Reviewed and agree with Esme XIE, documentation and assessment charting.
[2023-05-24] MEDS: Enoxaparin 40 MG/0.4 ML Syringe SC (05:23)
[2023-05-24] MEDS: Levothyroxine 25 MCG TABLET PO (05:23)
[2023-05-24 06:00] VITALS: BMI 31.6
[2023-05-24] MEDS: Amiodarone 200 MG Tablet 100 MG PO (09:10)
[2023-05-24] MEDS: Aspirin E.C. 81 MG Tablet 162 MG PO (09:10)
[2023-05-24] MEDS: Losartan Potassium 25 MG Tablet PO ×2 (09:10→22:03)
[2023-05-24] MEDS: Senna/Docusate Sodium 1 Tablet 2 TABLET PO (09:11)
[2023-05-24] MEDS: DULoxetine Hcl 60 MG Capsule PO (09:11)
[2023-05-24] MEDS: Mirabegron 50 MG TAB.ER.24H PO (09:11)
[2023-05-24] MEDS: Potassium Chloride Oral Tablet 20 MEQ PO ×2 (09:11→22:03)
[2023-05-24] MEDS: Pantoprazole Sodium 20 MG Tablet PO (09:11)
[2023-05-24] MEDS: Furosemide 40 MG Tablet PO (09:11)
[2023-05-24] MEDS: oxyCODONE 5 MG Tablet PO ×2 (09:38→22:03)
[2023-05-24] MEDS: Acetaminophen 500 MG Tablet 1000 MG PO ×2 (09:39→22:04)
[2023-05-24 10:00] VITALS: BP 136/73; PULSE 48; RESP 18; TEMP 35.9; O2SAT 98
--- NOTE | 2023-05-24 11:54 | PN_ITS ---
Subjective Subjective Afebrile VSS Maintaining appropriate oxygen saturation on RA Oral intake is good. His told me that he was not eating much at home and most of his calories came from beer. Discussed with nursing - no problems that need addressed Reviewed the PT/OT/ST notes Medication list reviewed. Slept well last night. Denies pain today. He also denies lightheadedness, cephalgia, chest pain, shortness of breath, cough, nausea/vomiting/abdominal pain, dysuria and calf pain. He tells me that he has no cravings for alcohol at this time and that his threatened not to allow him to come home if he continues to drink. Objective Data Objective Data Vital Signs: Vital Signs Temp Pulse Resp BP Pulse Ox O2 Del Method O2 Flow Rate 96.7 F L 48 L 18 136/73 H 98 Nasal Cannula 2 05/24/23 10:00 05/24/23 10:00 05/24/23 10:00 05/24/23 10:00 05/24/23 10:00 05/24/23 10:00 05/24/23 10:00 Oxygen Flow Rate (L/min) 2 Oxygen Delivery Method Nasal Cannula Weight: 208 lb 15.971 oz Body Mass Index (BMI) 31.6 Intake & Output: Intake and Output for Last 24 Hours 05/22/23 05/23/23 05/24/23 23:59 23:59 23:59 Intake Total 410 / 410 1540 / 1730 430 / 430 Output Total 364 / 364 250 / 820 570 / 570 Balance 46 / 46 1290 / 910 -140 / -140 Lab / Micro Data 05/23/23 05:23 05/23/23 05:23 Labs: Laboratory Results - last 24 hr 05/22/23 05:40: Vitamin B12 185 L 05/23/23 05:23: Folate 8.30 Physical Exam Const alert and no apparent distress General Appearance: cooperative and comfortable Resp normal respiratory effort and clear to auscultation bilaterally Effort and Inspection: able to speak in complete sentences Cardio regular rate, regular rhythm, no murmurs, no rub and no gallops Cardio Narrative: Rama ectopy GI normal to inspection, nondistended, normoactive bowel sounds, soft to palpation and non-tender Extremity no calf tenderness and no pedal edema Skin no wounds and no jaundice General Skin Exam: no breakdown Psych cooperative Psych Narrative: Word finding difficulties. Appearance: appropriate Attitude: calm Activity / Motor Behavior: appropriate eye contact Assessment & Plan Assessment/Plan (1) Physical debility: (2) Vertebral compression fracture: QUALIFIERS: Encounter type: subsequent encounter Fracture of vertebra location: lumbar Lumbar vertebra fracture level: unspecified lumbar vertebra (3) History of kyphoplasty: (4) Low back pain: QUALIFIERS: Chronicity: chronic (5) Adult failure to thrive: (6) Syncope: (7) CVA (cerebral vascular accident): (8) Ischemic cardiomyopathy: (9) Aortocoronary bypass status: (10) History of implantable cardioverter-defibrillator (ICD) placement: (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 transplanted heart: [place] heart Qualified Code(s): I25.10 - Atherosclerotic heart disease of [place] coronary artery without angina pectoris (12) Hyperlipidemia: QUALIFIERS: Hyperlipidemia type: unspecified Qualified Code(s): E78.5 - Hyperlipidemia, unspecified (13) Bradycardia: (14) Right bundle branch block: (15) Bifascicular block: (16) Essential hypertension: (17) Hypothyroidism: (18) Dyslipidemia: (19) Alcoholism: (20) Macrocytic anemia: PLAN: Plan 1. Continue therapy 2. Continue alcohol cessation counselling daily while he is here on rehab Charges/Coding Visit Charges Inpatient E&M: 91680 Subs Hosp L1
[2023-05-24] MEDS: OLANZapine 2.5 MG Tablet PO (16:48)
[2023-05-24 19:49] VITALS: BP 149/77; PULSE 58; RESP 18; TEMP 36.2; O2SAT 94
[2023-05-24 21:50] VITALS: PULSE 58; RESP 18; O2SAT 94
[2023-05-24] MEDS: Atorvastatin Calcium 40 MG Tablet PO (22:03)
[2023-05-24] MEDS: Mirtazapine 30 MG Tablet PO (22:03)
--- NOTE | 2023-05-25 03:54 | NURSING ---
Reviewed and agree with Garth XIE, documentation and assessment charting.
[2023-05-25] MEDS: Enoxaparin 40 MG/0.4 ML Syringe SC (05:47)
[2023-05-25] MEDS: Levothyroxine 25 MCG TABLET PO (05:48)
[2023-05-25 06:00] VITALS: BMI 31.5
[2023-05-25] MEDS: Acetaminophen 500 MG Tablet 1000 MG PO ×2 (06:29→20:56)
[2023-05-25 07:38] VITALS: O2SAT 95
[2023-05-25] MEDS: Potassium Chloride Oral Tablet 20 MEQ PO ×2 (08:48→20:55)
[2023-05-25] MEDS: Furosemide 40 MG Tablet PO (08:48)
[2023-05-25] MEDS: DULoxetine Hcl 60 MG Capsule PO (08:49)
[2023-05-25] MEDS: Amiodarone 200 MG Tablet 100 MG PO (08:49)
[2023-05-25] MEDS: Pantoprazole Sodium 20 MG Tablet PO (08:49)
[2023-05-25] MEDS: Mirabegron 50 MG TAB.ER.24H PO (08:49)
[2023-05-25] MEDS: Aspirin E.C. 81 MG Tablet 162 MG PO (08:49)
[2023-05-25] MEDS: Losartan Potassium 25 MG Tablet PO ×2 (08:49→20:56)
[2023-05-25] MEDS: oxyCODONE 5 MG Tablet PO ×2 (08:53→20:56)
[2023-05-25 09:38] VITALS: BP 137/66; PULSE 55; RESP 16; TEMP 36.3; O2SAT 96
--- NOTE | 2023-05-25 12:43 | CASEMGMT ---
Social Work IDT met with patient and for Team meeting. Discussed patient's progress in PT/OT/ST/SN. Educated to Medicare approval of 9 days with DC 05/31. Pt maintains statement of done drinking alcohol. Pt's goal is to return home with . SW provided resources for [facility]. SW offered to participate in therapy training before home with C vs OP therapy. Educated to option of SNF for ongoing therapy and receives coverage. unsure of plan at this time and will converse with children. SW offered therapy training. agreed and therapy to schedule for 05/26. SW will continue to follow for DC planning. Mis Edge, GEOFF XIAOW
[2023-05-25] MEDS: OLANZapine 2.5 MG Tablet PO (17:52)
--- NOTE | 2023-05-25 19:24 | PN_ITS ---
Subjective Subjective Darrell was seen on team rounds today. His Romy was present in the room for rounds. Nata tells me that Darrell was not taking Lorazepam at home. His usual routine at home is to starting drinking beer at 10 AM and drink continuously while watching TV and then go to bed. Appetite has been poor and he is drinking most of his calories. He does drive and he is able to purchase alcohol and bring it home. He is no social and engages in little conversation with her. He got angry with her when she would not stop to get beer on the way home after the Kyphoplasty. Family has been very frustrated with his continued drinking and do not know what to do next. Family has noticed a marked improvement in his though process since he has been not drinking while in the hospital. Afebrile VSS Maintaining appropriate oxygen saturation on RA Oral intake is better in the hospital than it was at home. Discussed with nursing - no problems that need addressed Reviewed the PT/OT/ST notes Medication list reviewed. Darrell denies lightheadedness, chest pain, cough, shortness of breath, nausea/vomiting, diarrhea/constipation, dysuria and calf pain. He has not complained of back pain to me. He tells me he is sleeping well at night. Objective Data Objective Data Vital Signs: Vital Signs Temp Pulse Resp BP Pulse Ox O2 Del Method O2 Flow Rate 97.3 F L 55 L 16 137/66 H 96 Room Air 2 05/25/23 09:38 05/25/23 09:38 05/25/23 09:38 05/25/23 09:38 05/25/23 09:38 05/25/23 09:38 05/24/23 10:00 Oxygen Flow Rate (L/min) 2 Oxygen Delivery Method Room Air Weight: 208 lb 1.862 oz Body Mass Index (BMI) 31.5 Intake & Output: Intake and Output for Last 24 Hours 05/23/23 05/24/23 05/25/23 23:59 23:59 23:59 Intake Total 1540 / 1730 2065 / 2065 775 / 775 Output Total 250 / 820 570 / 570 700 / 700 Balance 1290 / 910 1495 / 1495 75 / 75 Lab / Micro Data 05/23/23 05:23 05/23/23 05:23 Physical Exam Const alert and no apparent distress General Appearance: cooperative HEENT moist oral mucous membranes Resp normal respiratory effort, no use of accessory muscles and clear to auscultation bilaterally Effort and Inspection: Negative for tachypneic or labored Cardio regular rate, regular rhythm and no gallops GI normal to inspection, nondistended, normoactive bowel sounds, non-tender and non-distended GI Narrative: no guarding with palpation Extremity Negative for no calf tenderness General Extremity: Negative for edema Skin General Skin Exam: no breakdown Rashes: no rashes Psych affect normal Assessment & Plan Assessment/Plan (1) Physical debility: (2) Vertebral compression fracture: QUALIFIERS: Encounter type: subsequent encounter Fracture of vertebra location: lumbar Lumbar vertebra fracture level: unspecified lumbar vertebra (3) History of kyphoplasty: (4) Low back pain: QUALIFIERS: Chronicity: chronic (5) Adult failure to thrive: (6) Syncope: (7) CVA (cerebral vascular accident): (8) Ischemic cardiomyopathy: (9) Aortocoronary bypass status: (10) History of implantable cardioverter-defibrillator (ICD) placement: (11) Atherosclerotic heart disease of [place] coronary artery without angina pectoris: QUALIFIERS: [place] vs. transplanted heart: [place] heart Qualified Code(s): I25.10 - Atherosclerotic heart disease of [place] coronary artery w ithout angina pectoris (12) Hyperlipidemia: QUALIFIERS: Hyperlipidemia type: unspecified Qualified Code(s): E78.5 - Hyperlipidemia, unspecified (13) Bradycardia: (14) Right bundle branch block: (15) Bifascicular block: (16) Essential hypertension: (17) Hypothyroidism: (18) Dyslipidemia: (19) Alcoholism: (20) Macrocytic anemia: PLAN: Plan 1. Continue therapy 2. We had a lot of conversation on rounds about what to do to help him remain alcohol free. I recommended Nata and other family members who are interested attend [employer] to learn how to support Darrell and not enable him. I also recommended he consider [facility] at [place] or . 3. He has significant persistent brain dysfunction from the stroke. He is unable to read and his speech is halting and he has trouble with word finding. I discussed this with the ST on rounds and in her opinion he should be evaluated for the driving program in [place] before he is allowed to drive again. Info was given to Nata by the . 4. Medicare DC given for 05/31 which is next Monday........disposition at DC is to yet be decided. Charges/Coding Visit Charges Inpatient E&M: 90262 Subs Hosp L2
[2023-05-25 19:49] VITALS: BP 160/90; PULSE 58; RESP 16; TEMP 36.6; O2SAT 99
[2023-05-25 20:50] VITALS: PULSE 58; RESP 16; O2SAT 99
[2023-05-25] MEDS: Mirtazapine 30 MG Tablet PO (20:55)
[2023-05-25] MEDS: Atorvastatin Calcium 40 MG Tablet PO (20:56)
[2023-05-26] MEDS: Levothyroxine 25 MCG TABLET PO (05:33)
[2023-05-26] MEDS: Enoxaparin 40 MG/0.4 ML Syringe SC (05:33)
[2023-05-26 05:38] VITALS: BMI 31.4
[2023-05-26] MEDS: Amiodarone 200 MG Tablet 100 MG PO (07:47)
[2023-05-26] MEDS: Aspirin E.C. 81 MG Tablet 162 MG PO (07:47)
[2023-05-26] MEDS: Potassium Chloride Oral Tablet 20 MEQ PO ×2 (07:48→21:23)
[2023-05-26] MEDS: Mirabegron 50 MG TAB.ER.24H PO (07:48)
[2023-05-26] MEDS: Losartan Potassium 25 MG Tablet PO ×2 (07:48→21:24)
[2023-05-26] MEDS: DULoxetine Hcl 60 MG Capsule PO (07:48)
[2023-05-26] MEDS: Pantoprazole Sodium 20 MG Tablet PO (07:49)
[2023-05-26] MEDS: Furosemide 40 MG Tablet PO (07:49)
[2023-05-26 07:51] VITALS: O2SAT 98
[2023-05-26] MEDS: oxyCODONE 5 MG Tablet PO (07:56)
[2023-05-26 09:06] VITALS: BP 148/58; PULSE 58; RESP 15; TEMP 36.1; O2SAT 92
--- NOTE | 2023-05-26 12:07 | PN_ITS ---
Subjective Subjective Afebrile VSS -systolic blood pressure is still consistently above 130. The diastolic pressure is more often within goal however he has had some diastolic pressures ranging from 80-90. He remains bradycardic. Maintaining appropriate oxygen saturation on RA Oral intake is much improved. Discussed with nursing -he will not wear CPAP at night but is instead wearing oxygen. Reviewed the PT/OT/ST notes Medication list reviewed. Nata has come in today for family training. She had some additional questions after yesterday. She and her family are afraid he will start drinking again once he is home. they feel he is doing much better in the hospital. Nata is afraid to leave Darrell alone at home and she is linda afraid he will get in the car and drive to the Liquor store while she is out. Family would like him to go to TCU following Dc from rehab next Monday. Darrell is worried about his driving privileges being taken away from him. 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 Reactions are slow and I suspect he drives while impaired since he drinks every day. When I asked him today if he is having cravings for ETOH today he did not answer me and then changed the topic to his driving privileges. I had to explain twice before he understood and then his explained that we are not saying he will never be able to drive again......the driving evaluation is to make sure he is safe to drive without being a danger to himself or the others who share the road. He reluctantly agreed to go back to [facility] and when we know his DC date will schedule an appt for him. I once again reinforced that stopping ETOH abuse is not something he can do on his own and he will need a lot of support to stay sober. I pointed out that his speech is more fluent now and he is not having as much difficulty with word finding.......when he gets upset the problem with word finding increases. He was not aware of this. The tremors are also decreasing in his hands. When I asked him if he is feeling stronger he said yes but, when I asked if he is feeling stable/steady when he walks now he said no. He continues to need the FWW. Objective Data Objective Data Vital Signs: Vital Signs Temp Pulse Resp BP Pulse Ox O2 Del Method O2 Flow Rate 97.0 F L 58 L 15 148/58 H 92 Nasal Cannula 2 05/26/23 09:06 05/26/23 09:06 05/26/23 09:06 05/26/23 09:06 05/26/23 09:06 05/26/23 09:06 05/26/23 09:06 Oxygen Flow Rate (L/min) 2 Oxygen Delivery Method Nasal Cannula Weight: 207 lb 3.752 oz Body Mass Index (BMI) 31.4 Intake & Output: Intake and Output for Last 24 Hours 05/24/23 05/25/23 05/26/23 23:59 23:59 23:59 Intake Total 2065 / 2065 875 / 875 60 / 60 Output Total 570 / 570 800 / 800 300 / 300 Balance 1495 / 1495 75 / 75 -240 / -240 Lab / Micro Data 05/23/23 05:23 05/23/23 05:23 Physical Exam Const alert and no apparent distress Constitutional Narrative: Somewhat anxious when talking about hard subjects such as his drinking and his ability to continue driving. Increased word finding difficulty when he is anxious. Tremors are much better than at admission. Resp clear to auscultation bilaterally Cardio regular rhythm Rate: bradycardia GI normal to inspection, nondistended, normoactive bowel sounds, soft to palpation and non-tender Assessment & Plan Assessment/Plan (1) Physical debility: (2) Vertebral compression fracture: QUALIFIERS: Encounter type: subsequent encounter Fracture of vertebra location: lumbar Lumbar vertebra fracture level: unspecified lumbar vertebra (3) History of kyphoplasty: (4) Low back pain: QUALIFIERS: Chronicity: chronic (5) Adult failure to thrive: (6) Syncope: (7) CVA (cerebral vascular accident): (8) Ischemic cardiomyopathy: (9) Aortocoronary bypass status: (10) History of implantable cardioverter-defibrillator (ICD) placement: (11) Atherosclerotic heart disease of [place] coronary artery without angina pectoris: QUALIFIERS: [place] vs. transplanted heart: [place] heart Qualified Code(s): I25.10 - Atherosclerotic heart disease of [place] coronary artery without angina pectoris (12) Hyperlipidemia: QUALIFIERS: Hyperlipidemia type: unspecified Qualified Code(s): E78.5 - Hyperlipidemia, unspecified (13) Bradycardia: (14) Right bundle branch block: (15) Bifascicular block: (16) Essential hypertension: (17) Hypothyroidism: (18) Dyslipidemia: (19) Alcoholism: (20) Macrocytic anemia: PLAN: Plan 1. Continue therapy 2. Darrell agreed to SNF at [place] but, seemed reluctant. 3. He also agreed to giving [facility] another try and we will schedule a appt for him when we know his DC date. 4. Family is getting rid of all ETOH in the house. 5. If he refuses to go to the driving school in [place] then Nata will call me and I will start the paperwork to have his drivers license suspended. Darrell is aware of this. 6. Nata will be taking the car keys to his vehicle. 7. I once again encouraged Nata to attend an Al-[employer] meeting Over 50% of this visit was spent in counselling and answering family questions.
--- NOTE | 2023-05-26 13:28 | CASEMGMT ---
Social Work Pt's in for family training today. After pt worked with therapy and spoke with physician, SW spoke with pt . Pt and would like pt to go to TCU after stay in is complete. Pt's feels pt will benefit from continued therapy prior to returning home. Referral made to [facility] in TCU and they are able to accept with dc planned for 05/31. LANETTE placed call to pt Renetta and updated on this. Renetta agreeable. Plan: DC 05/31 to TCU [facility]
[2023-05-26] MEDS: OLANZapine 2.5 MG Tablet PO (18:51)
[2023-05-26 19:50] VITALS: BP 145/86; PULSE 60; RESP 16; TEMP 36.3; O2SAT 96
[2023-05-26] MEDS: Senna/Docusate Sodium 1 Tablet 2 TABLET PO (21:23)
[2023-05-26] MEDS: Mirtazapine 30 MG Tablet PO (21:23)
[2023-05-26] MEDS: Atorvastatin Calcium 40 MG Tablet PO (21:24)
[2023-05-26] MEDS: Acetaminophen 500 MG Tablet 1000 MG PO (21:27)
[2023-05-27] MEDS: Levothyroxine 50 MCG Tablet PO (04:46)
[2023-05-27] MEDS: Enoxaparin 40 MG/0.4 ML Syringe SC (04:47)
[2023-05-27] MEDS: oxyCODONE 5 MG Tablet PO ×2 (05:09→19:58)
[2023-05-27 06:00] VITALS: BMI 31.4
[2023-05-27] MEDS: Furosemide 40 MG Tablet PO (08:15)
[2023-05-27] MEDS: Amiodarone 200 MG Tablet 100 MG PO (08:15)
[2023-05-27] MEDS: Mirabegron 50 MG TAB.ER.24H PO (08:15)
[2023-05-27] MEDS: Aspirin E.C. 81 MG Tablet 162 MG PO (08:15)
[2023-05-27] MEDS: Senna/Docusate Sodium 1 Tablet 2 TABLET PO (08:16)
[2023-05-27] MEDS: Pantoprazole Sodium 20 MG Tablet PO (08:16)
[2023-05-27] MEDS: Losartan Potassium 25 MG Tablet PO ×2 (08:16→19:59)
[2023-05-27] MEDS: Potassium Chloride Oral Tablet 20 MEQ PO ×2 (08:17→20:00)
[2023-05-27] MEDS: DULoxetine Hcl 60 MG Capsule PO (08:17)
[2023-05-27] MEDS: Acetaminophen 500 MG Tablet 1000 MG PO (08:32)
[2023-05-27 09:47] VITALS: BP 148/78; PULSE 57; RESP 15; TEMP 36; O2SAT 94
[2023-05-27] MEDS: OLANZapine 2.5 MG Tablet PO (16:50)
[2023-05-27 19:49] VITALS: BP 159/81; PULSE 61; RESP 18; TEMP 36.6; O2SAT 94
[2023-05-27] MEDS: Atorvastatin Calcium 40 MG Tablet PO (19:59)
[2023-05-27] MEDS: Mirtazapine 30 MG Tablet PO (20:00)
[2023-05-27 22:00] VITALS: O2SAT 93
--- NOTE | 2023-05-28 03:37 | NURSING ---
Reviewed and agree with Blair XIE, documentation and assessment charting.
[2023-05-28] MEDS: Levothyroxine 50 MCG Tablet PO (05:26)
[2023-05-28] MEDS: Enoxaparin 40 MG/0.4 ML Syringe SC (05:26)
[2023-05-28 05:54] VITALS: BMI 31.6
[2023-05-28 07:59] VITALS: BP 151/83; PULSE 59; RESP 16; TEMP 36.7; O2SAT 94
[2023-05-28] MEDS: Pantoprazole Sodium 20 MG Tablet PO (08:14)
[2023-05-28] MEDS: DULoxetine Hcl 60 MG Capsule PO (08:15)
[2023-05-28] MEDS: Furosemide 40 MG Tablet PO (08:15)
[2023-05-28] MEDS: Aspirin E.C. 81 MG Tablet 162 MG PO (08:15)
[2023-05-28] MEDS: Mirabegron 50 MG TAB.ER.24H PO (08:15)
[2023-05-28] MEDS: Losartan Potassium 25 MG Tablet PO ×2 (08:15→20:59)
[2023-05-28] MEDS: Potassium Chloride Oral Tablet 20 MEQ PO ×2 (08:15→20:58)
[2023-05-28] MEDS: Amiodarone 200 MG Tablet 100 MG PO (08:15)
[2023-05-28] MEDS: oxyCODONE 5 MG Tablet PO ×2 (08:25→18:34)
[2023-05-28] MEDS: Senna/Docusate Sodium 1 Tablet 2 TABLET PO ×2 (08:26→20:58)
[2023-05-28] MEDS: OLANZapine 2.5 MG Tablet PO (16:43)
[2023-05-28 20:00] VITALS: BP 156/76; PULSE 72; RESP 16; TEMP 35.8; O2SAT 96
[2023-05-28] MEDS: Atorvastatin Calcium 40 MG Tablet PO (20:58)
[2023-05-28] MEDS: Mirtazapine 30 MG Tablet PO (20:59)
[2023-05-28 21:45] VITALS: O2SAT 95
[2023-05-29] MEDS: Enoxaparin 40 MG/0.4 ML Syringe SC (05:39)
[2023-05-29] MEDS: Levothyroxine 25 MCG TABLET PO (05:40)
[2023-05-29 06:00] VITALS: BMI 31.6
[2023-05-29 06:42] VITALS: O2SAT 98
[2023-05-29 07:48] VITALS: BP 165/84; PULSE 54; RESP 16; TEMP 36.9; O2SAT 92
[2023-05-29] MEDS: Losartan Potassium 25 MG Tablet PO ×2 (08:10→20:04)
[2023-05-29] MEDS: Furosemide 40 MG Tablet PO (08:10)
[2023-05-29] MEDS: DULoxetine Hcl 60 MG Capsule PO (08:10)
[2023-05-29] MEDS: Amiodarone 200 MG Tablet 100 MG PO (08:10)
[2023-05-29] MEDS: Senna/Docusate Sodium 1 Tablet 2 TABLET PO ×2 (08:10→20:04)
[2023-05-29] MEDS: Mirabegron 50 MG TAB.ER.24H PO (08:10)
[2023-05-29] MEDS: Pantoprazole Sodium 20 MG Tablet PO (08:10)
[2023-05-29] MEDS: Aspirin E.C. 81 MG Tablet 162 MG PO (08:11)
[2023-05-29] MEDS: Potassium Chloride Oral Tablet 20 MEQ PO ×2 (08:12→20:04)
[2023-05-29 09:09] VITALS: O2SAT 95
[2023-05-29] MEDS: OLANZapine 2.5 MG Tablet PO (17:09)
[2023-05-29 19:31] VITALS: BP 156/78; PULSE 65; RESP 18; TEMP 36.2; O2SAT 95
[2023-05-29] MEDS: Atorvastatin Calcium 40 MG Tablet PO (20:03)
[2023-05-29] MEDS: Mirtazapine 30 MG Tablet PO (20:04)
[2023-05-29] MEDS: oxyCODONE 5 MG Tablet PO (20:19)
[2023-05-29 20:30] VITALS: PULSE 65; O2SAT 95
[2023-05-30 06:00] VITALS: BMI 31.4
[2023-05-30] MEDS: Levothyroxine 25 MCG TABLET PO (06:13)
[2023-05-30] MEDS: Enoxaparin 40 MG/0.4 ML Syringe SC (06:13)
[2023-05-30 07:52] VITALS: BP 143/85; PULSE 57; RESP 16; TEMP 36.7; O2SAT 94
[2023-05-30] MEDS: Amiodarone 200 MG Tablet 100 MG PO (08:37)
[2023-05-30] MEDS: Senna/Docusate Sodium 1 Tablet 2 TABLET PO ×2 (08:38→19:55)
[2023-05-30] MEDS: Losartan Potassium 25 MG Tablet PO (08:38)
[2023-05-30] MEDS: Pantoprazole Sodium 20 MG Tablet PO (08:38)
[2023-05-30] MEDS: Mirabegron 50 MG TAB.ER.24H PO (08:38)
[2023-05-30] MEDS: Furosemide 40 MG Tablet PO (08:38)
[2023-05-30] MEDS: Aspirin E.C. 81 MG Tablet 162 MG PO (08:38)
[2023-05-30] MEDS: Potassium Chloride Oral Tablet 20 MEQ PO ×2 (08:38→19:54)
[2023-05-30] MEDS: DULoxetine Hcl 60 MG Capsule PO (08:38)
[2023-05-30] MEDS: Acetaminophen 500 MG Tablet 1000 MG PO ×2 (08:45→19:56)
[2023-05-30] MEDS: oxyCODONE 5 MG Tablet PO ×2 (08:46→19:55)
[2023-05-30 10:00] VITALS: PULSE 58; O2SAT 96
--- NOTE | 2023-05-30 11:58 | PCM.PROGNOTE ---
Subjective Subjective Afebrile VSS - systolic is always above goal.He has had a stroke in the past. Goal for BP is less than 130/80. His only antihypertensive is losartan 25 mg BID. HR normally runs on the low side in the 50's. It does increase appropriately with exercise. Maintaining appropriate oxygen saturation on RA Oral intake is good Discussed with nursing - no problems that need addressed Reviewed the PT/OT/ST notes Medication list reviewed. Darrell asked to speak to me today and he wanted to know how he came to be admitted to the hospital. I explained that he was having a lot of falls and was not taking care of himself and abusing ETOH and not interacting with his family. He agreed with me. He feels stronger since being on rehab and feels he is getting around a lot better. He still maintains that he wants to quit drinking. Admits to feeling bored at home. He feels safer walking with the WW and does not feel as though he is going to fall. Was not using a AD at home for ambulation. His legs feel weak. He denies headache, cough, sore throat, chest pain, shortness of breath, nausea/vomiting/abdominal pain, dysuria and calf tenderness. He has noticed that his hand tremors are less but, still having a hard time eating soup due to tremors......the utensils do not have the built up handles. Objective Data Objective Data Vital Signs: Vital Signs Temp Pulse Resp BP Pulse Ox O2 Del Method O2 Flow Rate 98.1 F 58 L 16 143/85 H 96 Room Air 2 05/30/23 07:52 05/30/23 10:00 05/30/23 07:52 05/30/23 07:52 05/30/23 10:00 05/30/23 10:00 05/29/23 06:42 Oxygen Flow Rate (L/min) 2 Oxygen Delivery Method Room Air Weight: 207 lb 10.807 oz Body Mass Index (BMI) 31.4 Intake & Output: Intake and Output for Last 24 Hours 05/28/23 05/29/23 05/30/23 23:59 23:59 23:59 Intake Total 1760 / 1760 460 / 460 240 / 240 Output Total 1999 / 1999 500 / 850 600 / 600 Balance -240 / -240 -40 / -390 -360 / -360 Lab / Micro Data 05/23/23 05:23 05/23/23 05:23 Micro: Microbiology 05/27/23 09:00 Stool Stool Occult Blood (LOUIE) - Final Physical Exam Const alert, oriented x3 and no apparent distress Constitutional Narrative: Speech is more fluent than it was at admisison. General Appearance: cooperative HEENT moist oral mucous membranes Resp clear to auscultation bilaterally Effort and Inspection: Negative for tachypneic or labored Cardio regular rate, regular rhythm and no gallops GI normal to inspection, nondistended, normoactive bowel sounds, soft to palpation and non-tender GI Narrative: No guarding with palpation Extremity no calf tenderness General Extremity: Negative for edema Skin General Skin Exam: no breakdown Rashes: no rashes Neuro Neuro Narrative: speech is more fluent now than at admission. He is making good eye contact and he is more talkative. He is interacting more with staff. Less tremors of his hands. Psych cooperative Psych Narrative: He has a more positive attitude today than he had at admission. Appearance: appropriate Activity / Motor Behavior: Negative for restless Assessment & Plan Assessment/Plan (1) Physical debility: (2) Vertebral compression fracture: QUALIFIERS: Encounter type: subsequent encounter Fracture of vertebra location: lumbar Lumbar vertebra fracture level: unspecified lumbar vertebra (3) History of kyphoplasty: (4) Low back pain: QUALIFIERS: Chronicity: chronic (5) Adult failure to thrive: (6) Syncope: (7) CVA (cerebral vascular accident): (8) Ischemic cardiomyopathy: (9) Aortocoronary bypass status: (10) History of implantable cardioverter-defibrillator (ICD) placement: (11) Atherosclerotic heart disease of [place] coronary artery without angina pectoris: QUALIFIERS: [place] vs. transplanted heart: [place] heart Qualified Code(s): I25.10 - Atherosclerotic heart disease of [place] coronary artery without angina pectoris (12) Hyperlipidemia: QUALIFIERS: Hyperlipidemia type: unspecified Qualified Code(s): E78.5 - Hyperlipidemia, unspecified (13) Bradycardia: (14) Right bundle branch block: (15) Bifascicular block: (16) Essential hypertension: (17) Hypothyroidism: (18) Dyslipidemia: (19) Alcoholism: (20) Macrocytic anemia: PLAN: Plan 1. Continue therapy 2. Transfer to TCU for additional therapy prior to going home tomorrow 3. Increase Cozaar to 50 mg twice daily. If the BP is still uncontrolled will add Amlodipine. 4. He last saw a pain management doctor 10 years ago for low back pain. Epidurals were not effective for him. He denies radicular pain in his legs. He has some numbness in the RLE due to previous stroke but, no numbness in the left leg. The back pain is exacerbated by walking and not with sitting. Will schedule an appt for him to follow up with pain management post DC from rehab. 5. Check a BMP today since potassium was increased. 6. D/W the OT if a heavier utensil would be of benefit to help his eat without spilling.
[2023-05-30 13:22] LABS: Anion Gap 3 (5-15); BUN 18 mg/dL (7-18); Calcium,Total 9.2 mg/dL (8.5-10.1); Chloride 103 mmol/L (98-107); EST Glomerular Filtration Rate 64 mL/min (>60); Est Glom Filt Rate - Afr Amer 77 mL/min (>60); Estimated Creatinine Clearance 55.42 ml/min; Glucose 117 mg/dL (74-106); Sodium Level 137 mmol/L (136-145)
[2023-05-30] MEDS: OLANZapine 2.5 MG Tablet PO (17:26)
[2023-05-30] MEDS: Magnesium Hydroxide 30 ML UDC PO (17:43)
[2023-05-30 19:26] VITALS: BP 161/84; PULSE 55; RESP 14; TEMP 37.1; O2SAT 94
[2023-05-30] MEDS: Atorvastatin Calcium 40 MG Tablet PO (19:54)
[2023-05-30] MEDS: Mirtazapine 30 MG Tablet PO (19:55)
[2023-05-30] MEDS: Losartan Potassium 50 MG Tablet PO (19:55)
[2023-05-31] MEDS: Enoxaparin 40 MG/0.4 ML Syringe SC (05:57)
[2023-05-31] MEDS: Levothyroxine 25 MCG TABLET PO (05:57)
[2023-05-31 06:00] VITALS: BMI 31.8
[2023-05-31 07:43] VITALS: BP 157/64; PULSE 59; RESP 16; TEMP 36.1; O2SAT 94
[2023-05-31 08:00] VITALS: O2SAT 95
[2023-05-31] MEDS: Pantoprazole Sodium 20 MG Tablet PO (08:57)
[2023-05-31] MEDS: Senna/Docusate Sodium 1 Tablet 2 TABLET PO (08:57)
[2023-05-31] MEDS: Losartan Potassium 50 MG Tablet PO (08:57)
[2023-05-31] MEDS: Potassium Chloride Oral Tablet 20 MEQ PO (08:57)
[2023-05-31] MEDS: Amiodarone 200 MG Tablet 100 MG PO (08:58)
[2023-05-31] MEDS: Furosemide 40 MG Tablet PO (08:58)
[2023-05-31] MEDS: Aspirin E.C. 81 MG Tablet 162 MG PO (08:58)
[2023-05-31] MEDS: DULoxetine Hcl 60 MG Capsule PO (08:58)
[2023-05-31] MEDS: Mirabegron 50 MG TAB.ER.24H PO (08:58)
[2023-05-31] MEDS: oxyCODONE 5 MG Tablet PO (09:03)
--- NOTE | 2023-05-31 11:26 | TREXTCAR_ITS ---
Diet Diet Order/Speech Therapy: 05/22/23 18:15 Diet: Cardiac - Heart Healthy Food consistency:: Regular Liquid Consistency:: Regular/Thin Type of Dietary Supplement:: [place] Breakfast Is pt able to select menu?: Yes Diet Comments: 8oz chocolate CIB w/ breakfast daily Routine Orders/Code Status Enema Type: Fleetz Enema Frequency: Daily PRN Suppository Type: Dulcolax 10mg Suppository Frequency: Daily PRN O2 Liters per Minute: 1-2 O2 Frequency: PRN Keep PO Greater than or Equal to (%): 90 Routine Lab Work: BMP (06/04/23) and - (Vitamin D 25-hydroxy on 06/04/23.) Code Status: Full Code Therapies Weight Bearing: Full weight bearing Physical Therapy: Eval and Treat Occupational Therapy: Eval and Treat Speech Therapy: Eval and Treat Problem/Diagnosis (1) Physical debility: Status: Acute Code(s): R53.81 - Other malaise Comment: Due to failure to thrive due to depression and alcohol abuse. (2) Vertebral compression fracture: Status: Acute Code(s): M48.50XA - Collapsed vertebra, not elsewhere classified, site unspecified, initial encounter for fracture Comment: Vertebral compression fractures were due to a fall. Was having frequent falls at home. Had recent kyphoplasty by Dr. Rogers. (3) History of kyphoplasty: Status: Acute Code(s): Z98.890 - Other specified postprocedural states Comment: Dr. Rogers on 05/16/2023 (4) Low back pain: Status: Acute Code(s): M54.50 - Low back pain, unspecified Comment: Chronic. Has not seen pain management in the past 10 years. Epidurals have not helped in the past. An appt has been made for him to see Dr. Houston on 06/07/23. (5) Adult failure to thrive: Status: Inactive Code(s): R62.7 - Adult failure to thrive Comment: Due to depression compounded by ETOH abuse. Agreeable to going to [facility] for counselling. He sees a psychiatrist but, only for meds not counselling. (6) Syncope: Status: Chronic Code(s): R55 - Syncope and collapse Comment: Pt not sure if he fell or had syncope when he sustained the vertebral compression fractures. (7) CVA (cerebral vascular accident): Status: Acute Code(s): I63.9 - Cerebral infarction, unspecified Comment: 2018 with residual R side weakness and paresthesia in the R leg. (8) Ischemic cardiomyopathy: Status: Chronic Code(s): I25.5 - Ischemic cardiomyopathy Comment: Echocardiogram March 2023 showed a 40% ejection fraction with no multiple wall motion abnormalities. Diastology was normal. Bubble contrast was negative for right to left intra-atrial shunt. Trivial MR and trivial TR. (9) Aortocoronary bypass status: Status: Chronic Code(s): Z95.1 - Presence of aortocoronary bypass graft Comment: CABG x5- BAÑUELOS to LAD, SVG to DX1, SVG sequential graft to the posterior lateral circumflex and the lateral circumflex, SVG to RCA 09/28/17 (10) History of implantable cardioverter-defibrillator (ICD) placement: Status: Chronic Code(s): Z95.810 - Presence of automatic (implantable) cardiac defibrillator (11) Atherosclerotic heart disease of [place] coronary artery without angina pectoris: Status: Chronic Code(s): I25.10 - Atherosclerotic heart disease of [place] coronary artery without angina pectoris Comment: S/P CABG on September 28, 2017 at [facility] with BAÑUELOS to LAD, SVG to DX1, SVG sequential graft to the posterior lateral circumflex and the lateral circumflex, SVG to RCA; (12) Hyperlipidemia: Status: Chronic Code(s): E78.5 - Hyperlipidemia, unspecified (13) Bradycardia: Status: Acute Code(s): R00.1 - Bradycardia, unspecified (14) Right bundle branch block: Status: Chronic Code(s): I45.10 - Unspecified right bundle-branch block (15) Bifascicular block: Status: Acute Code(s): I45.2 - Bifascicular block (16) Essential hypertension: Status: Chronic Code(s): I10 - Essential (primary) hypertension (17) Hypothyroidism: Status: Acute Code(s): E03.9 - Hypothyroidism, unspecified Comment: TSH on 05/23/2023 was 3.11 with a normal T4. (18) Alcoholism: Status: Acute Code(s): F10.20 - Alcohol dependence, uncomplicated Comment: Long standing. 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 Ceron. EEG negative for seizures. Does not have Parkinson's disease but, he does have some features of Parkinson's which Dr. Ceron suspects is due to his medications. He is going to follow up with Dr. Ceron. 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 Since alcohol is a depressant it was likely exacerbating his underlying depression. His tremors are with intention and not at rest and they have been better since he has been off the ETOH and eating well . Plan 1. He has done well in therapy and has made excellent progress but, he is not yet strong enough to go home and he still feels like his legs are weak and unsteady. Transfer to TCU today for additional therapy prior to returning home. 2. Cozaar was increased to 50 mg BID yesterday for uncontrolled HTN (goal is < 130/80). Will order a BMP for 06/04/23 to check the creat and the K. 3. He is agreeable to going to [facility] from [facility]CU for counselling. The last time he went there he did not want to stop drinking but, he is determined to stop now. He is bored and needs to find something that interests him that he can do to keep his mind off drinking. 4. Appt with Dr. Houston on 06/07/23 for chronic back pain. 5. Will follow up with Dr. Ceron to discuss the results of recent consult. 6. Check a vitamin D level with the BMP next week and would recommend an OP BMD in light of recent vertebral fractures. Allergies/Procedures Done in Hospital Allergies lisinopril Adverse Reaction (Verified 05/19/23 16:49) cough Procedures: None Type of Care/Length of Stay Estimated LOS: Convalescent Care Less Than 30 days Type of Care Needed: Skilled Rehab Potential: Good Prognosis: Good Additional Orders/Day of Discharge H&P will serve as current which was dated: 05/23/23 Day of Discharge: 05/31/23 Dietary and Speech Recommendations Dietitian Recommendations/Changes: Continue current cardiac diet due to cardiac hx. Order [employer] Breakfast Essentials drink in the morning for additional energy, protein, vitamins, and minerals. Speech Linguistic Eval Summary: Informal cognitive-linguistic evaluation completed. Orientation: oriented to all except date (off by one), reoriented. Memory: Immediate recall (3 word sequence) 3/3. Delayed recall (3 word sequence) 0/3. Able to repeat back 01/03 details from a short story immediately after hearing it. Able to repeat back same story after a brief delay w/ distractions w/ 02/02 accuracy. Despite having difficulty verbally retelling the story, he was able to answer yes/no comprehension questions re: the story w/ 01/27 accuracy. Noted impaired working memory w/ difficulty retaining information long enough to manipulate/utilize/respond. Auditory Comprehension: answered yes/no ?s w/ 04/01 accuracy. Pt admits that he often confuses his ?yes? and ?no? responses and has expressed an interest in working on this. Able to comprehend and execute 2 and 3 step commands. Reading Comprehension: Able to read at the word level and demonstrate comprehension. Comprehension deteriorates w/ increased length beyond the word level. Problem Solving: grossly WNL Pt does not drive. manages the household finances and his medications. Discussed findings w/ patient who expressed interest in participating in speech therapy during his rehab stay. The patient self identified goals of ?reading? and ?answering yes/no questions?. Patient also agreeable to address working memory and word retrieval skills during this admission. Follow Up Care Please follow up with your Primary Care Physician in: Dr. Tio Villalba following DC from [facility] Please Follow Up With: Kyle Ceron MD Please Follow Up With: Radha Houston MD Please Follow Up With: Mark Johnson MD Discharge Plan Admission Admit Date/Time: 05/22/23 17:11 Primary Reason for Your Visit: Debility due to depression/failure to thrive Attending Provider: Gris Duran Primary Care Provider: Kaylin Hui Instructions Patient Instructions: Alcohol and Older Adults, Alcoholism: Myths and Facts, Alcoholism: Getting Help, Alcohol Addiction, Managing Chronic Pain: Activity, Managing Chronic Pain Additional Instructions / Restrictions: 1. You have done very well in therapy and I have noticed a big change in you since you first arrived on rehab. You are talking more and interacting with the rehab staff. You are making good eye contact when I speak to you now. You are interested in how you got to this point and what can be done to change this process so it does not happen again. You admit to being a alcoholic. You want to stop drinking. You are willing to go to [facility] and get help/counselling to stop drinking. Your tremors are better. you are getting stronger. you seem more confident. Keep up the good work you have started. Your family has also noticed a big difference in the way you are with them. They can be a great support for you.......never be afraid to ask for help. 2. We have made an appt for you to see Dr. Houston. He is a spray painter helper. Medicine is important to treat chronic back pain BUT, so is regular exercise to keep your muscles strong to support your back, linda if you have had a stroke in the past. 3. Your blood pressure is a little high, linda the top number. The goal for BP in a pt who has had heart failure or a stroke is to keep the BP < 130/80. We increased the Cozaar to 50 mg twice a day and if this is not enough you may need to start a second medication like Amlodipine or Hydralazine. 4. You will need to follow up with Dr. Ceron to get the results of his evaluation of your neurologic health. You do not have Parkinson's disease.......the tremors you are having and some of the other Parkinson like symptoms are more likely due to one of the drugs you are taking. Dr. Ceron will discuss this with you. 5. If you need help to stop drinking or you have questions after you leave rehab please do not hesitate to call me and ask for help. All of us in rehab want to see you succeed and be a happier, more active person going forward. OFFICE: [phone] CELL: [phone]. Discharge Orders/Prescriptions Prescriptions: New losartan 50 mg Tablet 50 mg PO BID Qty: 60 0RF oxycodone 5 mg Tablet 5 mg PO Q8H PRN (Reason: Pain Score 4-10) 7 Days Qty: 20 0RF sennosides-docusate sodium [Stool Softener-Stimulant Laxat] 8.6-50 mg Tablet 2 tab PO BID Qty: 1 0RF Continued nitroglycerin 0.4 mg tablet, sublingual 0.4 mg SUBLINGUAL Q5-15M PRN (Reason: pain) atorvastatin 40 mg tablet 40 mg PO .HS aspirin 81 mg tablet,delayed release (DR/EC) 81 mg PO QDAY Rx Instructions: 2 tabs daily omeprazole 20 mg tablet,delayed release (DR/EC) 20 mg PO DAILY mirtazapine [Remeron] 30 mg tablet 30 mg PO .HS potassium chloride 10 mEq tablet extended release 20 meq PO BID levothyroxine [Euthyrox] 25 mcg tablet 25 mcg PO .- olanzapine 2.5 mg tablet 2.5 mg PO 1700 levothyroxine 25 mcg tablet 50 mcg PO .Sa/Reynolds duloxetine 60 mg capsule,delayed release(DR/EC) 60 mg PO DAILY furosemide 40 mg tablet 40 mg PO DAILY Myrbetriq 50 mg tablet extended release 24 hr 50 mg PO DAILY Patient Comments: TAKE 1 TABLET BY MOUTH ONCE DAILY acetaminophen 500 mg capsule 1,000 mg PO Q8H PRN PRN (Reason: Pain 1-10) metolazone 2.5 mg tablet 2.5 mg PO DAILY PRN (Reason: FLUID RETENTION) amiodarone 200 mg tablet 100 mg PO QDAY Qty: 90 3RF Discontinued losartan 25 mg tablet 25 mg PO BID lorazepam 0.5 mg tablet 0.5 mg PO DAILY PRN (Reason: anxiety) oxycodone 5 mg capsule 5 mg PO Q8H Referrals / Follow Up: Radha Houston MD [Med Staff - Active Staff] - 06/07/23 11:00 am (bring insurance care and photo ID) Maikel Rogers DO [Med Staff - Active Staff] - 06/09/23 9:30 am Kaylin Hui PA [Primary Care Provider] - Within 2 Weeks Disposition Disposition (needs filled in before D/C Order can be placed): Senior Living Facility (2) Vertebral compression fracture Qualifiers: Encounter type: subsequent encounter Fracture of vertebra location: lumbar Lumbar vertebra fracture level: unspecified lumbar vertebra (4) Low back pain Qualifiers: Chronicity: chronic (11) Atherosclerotic heart disease of [place] coronary artery without angina pectoris Qualifiers: [place] vs. transplanted heart: [place] heart Qualified Code(s): I25.10 - Atherosclerotic heart disease of [place] coronary artery without angina pectoris (12) Hyperlipidemia Qualifiers: Hyperlipidemia type: unspecified Qualified Code(s): E78.5 - Hyperlipidemia, u nspecified
--- NOTE | 2023-05-31 13:38 | PCM.DC.SUM ---
Providers Date of Admission: 05/22/23 Date of Discharge: 05/31/23 Primary Care Physician: MARIELENA Edwards none Reason For Visit: DEBILITY AND KYPHOPLASTY Diagnosis Discharge Diagnosis (1) Physical debility: Status: Acute Code(s): R53.81 - Other malaise (2) Vertebral compression fracture: Status: Acute Code(s): M48.50XA - Collapsed vertebra, not elsewhere classified, site unspecified, initial encounter for fracture Qualifiers: Encounter type: subsequent encounter Fracture of vertebra location: lumbar Lumbar vertebra fracture level: unspecified lumbar vertebra (3) History of kyphoplasty: Status: Acute Code(s): Z98.890 - Other specified postprocedural states (4) Low back pain: Status: Acute Code(s): M54.50 - Low back pain, unspecified Qualifiers: Chronicity: chronic Back pain laterality: bilateral Sciatica presence: without sciatica Qualified Code(s): M54.50 - Low back pain, unspecified; G89.29 - Other chronic pain (5) Adult failure to thrive: Status: Inactive Code(s): R62.7 - Adult failure to thrive (6) Syncope: Status: Chronic Code(s): R55 - Syncope and collapse Qualifiers: Syncope type: unspecified Qualified Code(s): R55 - Syncope and collapse (7) CVA (cerebral vascular accident): Status: Acute Code(s): I63.9 - Cerebral infarction, unspecified Plan: Remote - 2018 associated with cardiac arrest. (8) Ischemic cardiomyopathy: Status: Chronic Code(s): I25.5 - Ischemic cardiomyopathy Plan: EF is 40% with multiple wall motion abnormalities (9) Aortocoronary bypass status: Status: Chronic Code(s): Z95.1 - Presence of aortocoronary bypass graft (10) History of implantable cardioverter-defibrillator (ICD) placement: Status: Chronic Code(s): Z95.810 - Presence of automatic (implantable) cardiac defibrillator (11) Atherosclerotic heart disease of [place] coronary artery without angina pectoris: Status: Chronic Code(s): I25.10 - Atherosclerotic heart disease of [place] coronary artery without angina pectoris Qualifiers: [place] vs. transplanted heart: [place] heart Qualified Code(s): I25.10 - Atherosclerotic heart disease of [place] coronary artery without angina pectoris (12) Hyperlipidemia: Status: Chronic Code(s): E78.5 - Hyperlipidemia, unspecified Qualifiers: Hyperlipidemia type: unspecified Qualified Code(s): E78.5 - Hyperlipidemia, unspecified (13) Bradycardia: Status: Acute Code(s): R00.1 - Bradycardia, unspecified (14) Right bundle branch block: Status: Chronic Code(s): I45.10 - Unspecified right bundle-branch block (15) Bifascicular block: Status: Acute Code(s): I45.2 - Bifascicular block (16) Essential hypertension: Status: Chronic Code(s): I10 - Essential (primary) hypertension (17) Hypothyroidism: Status: Acute Code(s): E03.9 - Hypothyroidism, unspecified Qualifiers: Hypothyroidism type: acquired Qualified Code(s): E03.9 - Hypothyroidism, unspecified (18) Alcoholism: Status: Acute Code(s): F10.20 - Alcohol dependence, uncomplicated (19) Macrocytic anemia: Status: Acute Code(s): D53.9 - Nutritional anemia, unspecified (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 Plan 1. He has done well in therapy and has made excellent progress but, he is not yet strong enough to go home and he still feels like his legs are weak and unsteady. Transfer to TCU today for additional therapy prior to returning home. 2. Cozaar was increased to 50 mg BID yesterday for uncontrolled HTN (goal is < 130/80). Will order a BMP for 06/04/23 to check the creat and the K. 3. He is agreeable to going to [facility] DC from [facility]CU for counselling. The last time he went there he did not want to stop drinking but, he is determined to stop now. He is bored and needs to find something that interests him that he can do to keep his mind off drinking. 4. Appt with Dr. Houston on 06/07/23 for chronic back pain. 5. Will follow up with Dr. Ceron to discuss the results of recent consult. 6. Check a vitamin D level with the BMP next week and would recommend an OP BMD in light of recent vertebral fractures. Medications at Discharge Home Medications atorvastatin 40 mg tablet 40 mg PO .HS cholesterol 04/05/18 nitroglycerin 0.4 mg sublingual tablet 0.4 mg sublingual Q5-15M PRN pain 04/05/18 mirtazapine 30 mg tablet (Remeron) 30 mg PO .HS SLEEP 09/26/18 omeprazole 20 mg tablet,delayed release 20 mg PO DAILY reflux 09/26/18 potassium chloride 10 mEq tablet,extended release 20 meq PO BID supplement 11/18/19 aspirin 81 mg tablet,delayed release 81 mg PO QDAY heart health 02/01/22 amiodarone 200 mg tablet 100 mg (1/2 x 200 mg) PO QDAY heart rate #90 tabs 08/08/22 duloxetine 60 mg capsule,delayed release 60 mg PO DAILY mental health 03/21/23 furosemide 40 mg tablet 40 mg PO DAILY diuretic 03/21/23 levothyroxine 25 mcg tablet 50 mcg PO .Sa/Reynolds thyroid 03/21/23 levothyroxine 25 mcg tablet (Euthyrox) 25 mcg PO .M-F thyroid 03/21/23 olanzapine 2.5 mg tablet 2.5 mg PO 1700 Mental disorder 03/21/23 mirabegron 50 mg tablet,extended release 24 hr (Myrbetriq) 50 mg PO DAILY BLADDER 05/19/23 acetaminophen 500 mg capsule 1,000 mg PO Q8H PRN PRN Pain 1-10 05/22/23 metolazone 2.5 mg tablet 2.5 mg PO DAILY PRN FLUID RETENTION 05/22/23 losartan 50 mg tablet 50 mg PO BID #60 tabs 05/31/23 oxycodone 5 mg tablet 5 mg PO Q8H PRN Pain Score 4-10 7 days #20 tabs 05/31/23 sennosides 8.6 mg-docusate sodium 50 mg tablet (Stool Softener-Stimulant Laxative) 2 tab PO BID #1 TAB 05/31/23 Hospital Course Operations None and - (Kyphoplasty done by Dr. Rogers on 05/16/23.) Procedures 2-D Echocardiogram (RDER #: [id number] ECHO/Echo Complete W/ Contrast Interpretation Summary The estimated ejection fraction is 40 %. There are regional wall motion abnormalities as specified. Mild (1+) mitral valve insufficiency. Mild (1+) tricuspid valve insufficiency. Bubble contrast study negative for right to left ) Summary of Care Provided Minutes Spent on Discharge: 40 Hospital Course: AMANDA HERNANDEZ, is a 72 M with a PMH of ischemic CVA in 2018 (occurred in the setting of cardiac arrest) with persistent expressive aphasia, tracheal stenosis, cardiac arrest due to V-fib, history of AICD placement, coronary artery disease, congestive heart failure/ischemic cardiomyopathy (40% EF currently), hypertension, hypothyroidism, chronic back pain (has not seen pain management in 10 years.....no sciatic pain), alcoholism, tobacco dependence in remission, depression/anxiety (has a psychiatrist who prescribes meds but, does not do therapy), vertebral compression fxs and rib fractures due to a fall in February and intention tremors who presented to the ED at [facility] on 05/19/23 c/o of weakness and difficulty walking. Three days prior to the ED visit he had vertebral kyphoplasty by Dr. Rogers. Due to pain he had spent a lot of time in bed since February and had gotten very debilitated. He had been having difficulty walking and has had several falls. He does not walk with an AD. He fell trying to get on his riding manager advanced. He also tells me that he had a syncopal episode in the past month and this lead to a visit with Dr. Ceron. Syncope occurred when coughing. He had an EEG done by Dr. Ceron and is was negative for any epileptiform activity. He admits to having lightheadedness when he stands at times. He is taking Lasix 40 mg daily and Metolazone 2.5 mg every 4 days PRN and increased leg swelling or increasing shortness of breath. His told me that he has not been eating well at home and that most of what he drinks is beer. He follows with Dr. Johnson from cardiology. He had an echocardiogram done in March 2023 that showed an ejection fraction of 40% with normal diastology. There were regional wall motion abnormalities. The right ventricle was normal size with normal systolic function. Left and right atria were normal and the bubble contrast study was negative for right to left intra-atrial shunt. Right ventricular systolic pressure was estimated to be 27 and there was no significant valvular heart disease. He tells me he weighs himself every morning and his weight has been stable. He follows with a psychiatrist who prescribes his medications but, does not do therapy with him. He has a history of alcohol abuse and is currently drinking 8-9 beers daily. His has told him that he needs to stop drinking or he cannot come back home. He has been to [facility] for 2 to 3 months in the past but at that time he did not want to stop drinking. He now says he wants to stop. He has never been to . His is not a drinker. He drives but, he tells me that he does not drink and drive, however he drinks everyday. He started drinking socially at the age of 42 and then this escalated due to boredom. He has been to [facility] once in the past but, at that time he did not want to stop drinking. While in the hospital he was seen by PT/OT and acute rehab was recommended at [place]. He was transferred to the acute in rehab unit at [facility] on 05/22/23 for 3 hours of therapy daily to restore strength/function/independence at or near his level prior to the fall in February. Darrell seems committed to changing his behavior and wants to stop drinking. He is agreeable to going to [facility] for counselling to help him stop abusing alcohol. He has had significant improvement since arriving on rehab. He is now making eye contact when we speak. He is more talkative and has been interacting with myself and staff much better. He is asking me appropriate questions about what led to his admission to the hospital and especially to rehab. We had discussions regarding alcohol rehab daily while he was an inpatient in rehab. His tremors are less since arriving on rehab and I suspect this is due to better nutrition, better hydration and abstention from alcohol. His family has noticed a significant difference in his memory and his ability to hold a conversation with them. BP has been elevated above goal since arrival on rehab and Cozaar was increased to 50 mg BID recently. If this is not effective in lowering the BP to less than 130/80 I would consider adding either hydralazine or amlodipine to his drug regimen since he is bradycardic at baseline. His lungs have been clear for the duration of his stay on rehab and he has no edema of the ankles. He denies SOB and has not had any CP. He was cooperative with therapy and has made good progress but, he is not yet strong enough to return home and he admits to his legs still feeling weak and unsteady, although they are getting better. At the time of DC from rehab to TCU he is independent with eating and standby assist for grooming. He needs minimal assistance with bathing and with lower body dressing. He is supervision/set up for upper body dressing. He is contact-guard assist for toilet transfer and tub/shower transfer and standby assist for toileting. He has ambulated up to 165 feet at SBA/CGA on various surfaces with various devices and we are still trying to determine which is the least restrictive device for him. He is able to ascend/descend 13 steps with 1 handrail and a walking stick at CGA/SBA. Tonio was discharged to TCU on 05/31/23 for additional therapy/strengthening prior to going home. He is determined to quit abusing alcohol and repair relations with his family. He is willing to go to [facility] for counselling. He has chronic back pain. An appt has been scheduled for him to see Dr. Houston on 06/07/23. He will need to follow up with Dr. Ceron to review the results of his recent W/U for syncope and tremors. He normally follows with Dr. Johnson for cardiology needs and he has a psychiatrist who prescribes Olanzapine, Cymbalta and Remeron for him. Physical Exam Const alert, oriented x3 and no apparent distress Constitutional Narrative: Speech is more fluent than it was at admisison. General Appearance: cooperative, comfortable, well kempt and well developed; Negative for anxious, combative, disheveled or ill appearing Nutritional Appearance: overweight HEENT normocephalic, head/scalp atraumatic, hearing grossly normal bilaterally, moist oral mucous membranes and oropharynx normal Eyes PERRL, EOMs intact bilaterally, conjunctivae normal, no scleral icterus and normal visual andersen by confrontation General Eye: normal appearance of both eyes Neck No nuchal rigidity, supple, No nodes and no carotid bruits Chest Chest: symmetrical chest wall rise Resp normal respiratory effort, no use of accessory muscles and clear to auscultation bilaterally Effort and Inspection: able to speak in complete sentences; Negative for tachypneic or labored Cardio regular rate, regular rhythm, S1 normal heart sound, S2 normal heart sound, no murmurs, no rub and no gallops Cardio Narrative: Rama ectopy Rate: bradycardia GI normal to inspection, nondistended, normoactive bowel sounds, soft to palpation, non-tender and non-distended GI Narrative: No guarding with palpation no CVA tenderness Extremity no calf tenderness and no pedal edema General Extremity: Negative for edema Skin no wounds and no jaundice General Skin Exam: no breakdown Rashes: no rashes Neuro oriented x3, CN's II-XII intact bilaterally and moves all extremities Neuro Narrative: Speech is more fluent now than at admission. Occasional trouble word finding. He is making good eye contact and he is more talkative. He is interacting more with staff. Less tremors of his hands. Gait is steadier with the FWW at SBA with no LOB. Psych mental status grossly normal, thought process normal, cooperative and affect normal Psych Narrative: He has a more positive attitude today than he had at admission. Appearance: grossly normal, appropriate and well kempt Attitude: calm Activity / Motor Behavior: appropriate eye contact; Negative for restless Mood & Affect: euthymic mood Weight / BMI Weight Weight: 209 lb 14.081 oz Body Mass Index (BMI) 31.8 ABG / Lab / Microbiology Data 05/23/23 05:23 05/30/23 13:01 Microbiology: Microbiology 05/27/23 09:00 Stool Stool Occult Blood (LOUIE) - Final D/C Instructions Please Follow Up With: Kyle Ceron MD Meaningful Use Info Meaningful Use Diagnoses (Choose all that apply): None applicable Discharge Plan Admission Admit Date/Time: 05/22/23 17:11 Primary Reason for Your Visit: Debility due to depression/failure to thrive Attending Provider: Gris Duran Primary Care Provider: Kaylin Hui Instructions Patient Instructions: Alcohol and Older Adults, Alcoholism: Myths and Facts, Alcoholism: Getting Help, Alcohol Addiction, Managing Chronic Pain: Activity, Managing Chronic Pain Additional Instructions / Restrictions: 1. You have done very well in therapy and I have noticed a big change in you since you first arrived on rehab. You are talking more and interacting with the rehab staff. You are making good eye contact when I speak to you now. You are interested in how you got to this point and what can be done to change this process so it does not happen again. You admit to being a alcoholic. You want to stop drinking. You are willing to go to [facility] and get help/counselling to stop drinking. Your tremors are better. you are getting stronger. you seem more confident. Keep up the good work you have started. Your family has also noticed a big difference in the way you are with them. They can be a great support for you.......never be afraid to ask for help. 2. We have made an appt for you to see Dr. Houston. He is a appliance painter and refinisher. Medicine is important to treat chronic back pain BUT, so is regular exercise to keep your muscles strong to support your back, linda if you have had a stroke in the past. 3. Your blood pressure is a little high, linda the top number. The goal for BP in a pt who has had heart failure or a stroke is to keep the BP < 130/80. We increased the Cozaar to 50 mg twice a day and if this is not enough you may need to start a second medication like Amlodipine or Hydralazine. 4. You will need to follow up with Dr. Ceron to get the results of his evaluation of your neurologic health. You do not have Parkinson's disease.......the tremors you are having and some of the other Parkinson like symptoms are more likely due to one of the drugs you are taking. Dr. Ceron will discuss this with you. 5. If you need help to stop drinking or you have questions after you leave rehab please do not hesitate to call me and ask for help. All of us in rehab want to see you succeed and be a happier, more active person going forward. OFFICE: [phone] CELL: [phone]. Discharge Orders/Prescriptions Prescriptions: New losartan 50 mg Tablet 50 mg PO BID Qty: 60 0RF oxycodone 5 mg Tablet 5 mg PO Q8H PRN (Reason: Pain Score 4-10) 7 Days Qty: 20 0RF sennosides-docusate sodium [Stool Softener-Stimulant Laxat] 8.6-50 mg Tablet 2 tab PO BID Qty: 1 0RF Continued nitroglycerin 0.4 mg tablet, sublingual 0.4 mg SUBLINGUAL Q5-15M PRN (Reason: pain) atorvastatin 40 mg tablet 40 mg PO .HS aspirin 81 mg tablet,delayed release (DR/EC) 81 mg PO QDAY Rx Instructions: 2 tabs daily omeprazole 20 mg tablet,delayed release (DR/EC) 20 mg PO DAILY mirtazapine [Remeron] 30 mg tablet 30 mg PO .HS potassium chloride 10 mEq tablet extended release 20 meq PO BID levothyroxine [Euthyrox] 25 mcg tablet 25 mcg PO .M-F olanzapine 2.5 mg tablet 2.5 mg PO 1700 levothyroxine 25 mcg tablet 50 mcg PO .Sa/Reynolds duloxetine 60 mg capsule,delayed release(DR/EC) 60 mg PO DAILY furosemide 40 mg tablet 40 mg PO DAILY Myrbetriq 50 mg tablet extended release 24 hr 50 mg PO DAILY Patient Comments: TAKE 1 TABLET BY MOUTH ONCE DAILY acetaminophen 500 mg capsule 1,000 mg PO Q8H PRN PRN (Reason: Pain 1-10) metolazone 2.5 mg tablet 2.5 mg PO DAILY PRN (Reason: FLUID RETENTION) amiodarone 200 mg tablet 100 mg PO QDAY Qty: 90 3RF Discontinued losartan 25 mg tablet 25 mg PO BID lorazepam 0.5 mg tablet 0.5 mg PO DAILY PRN (Reason: anxiety) oxycodone 5 mg capsule 5 mg PO Q8H Referrals / Follow Up: Radha Houston MD [Med Staff - Active Staff] - 06/07/23 11:00 am (bring insurance care and photo ID) Maikel Rogers DO [Med Staff - Active Staff] - 06/09/23 9:30 am Kaylin Hui PA [Primary Care Provider] - Within 2 Weeks Disposition Disposition (needs filled in before D/C Order can be placed): [facility] Charges/Coding Visit Charges Inpatient E&M: 27238 Disch Hosp >30min
[2023-05-31 14:59] VITALS: BP 157/64; PULSE 59; RESP 16; TEMP 36.1; O2SAT 94
--- NOTE | 2023-05-31 15:01 | NURSING ---
discharged to TCU report called to Keshia GODOY
== END 2023-05-31 14:11 | DRG 560 ==
PROVIDERS: Admitting Provider Internal Medicine; PCP Physician Assistant; Visit Provider Internal Medicine
DX: M48.50XD Collapsed vertebra, not elsewhere classified, site unspecified, subsequent encounter for fracture with routine healing (principal); G21.19 Other drug induced secondary parkinsonism; I69.351 Hemiplegia and hemiparesis following cerebral infarction affecting right dominant side; I45.2 Bifascicular block; I11.0 Hypertensive heart disease with heart failure; I50.9 Heart failure, unspecified; F10.20 Alcohol dependence, uncomplicated; D53.9 Nutritional anemia, unspecified; E03.9 Hypothyroidism, unspecified; I69.320 Aphasia following cerebral infarction; E78.5 Hyperlipidemia, unspecified; I25.5 Ischemic cardiomyopathy; R00.1 Bradycardia, unspecified; I25.10 Atherosclerotic heart disease of native coronary artery without angina pectoris; K21.9 Gastro-esophageal reflux disease without esophagitis; W19.XXXD Unspecified fall, subsequent encounter; Z86.74 Personal history of sudden cardiac arrest; G89.29 Other chronic pain; S22.39XD Fracture of one rib, unspecified side, subsequent encounter for fracture with routine healing; Z95.810 Presence of automatic (implantable) cardiac defibrillator; R62.7 Adult failure to thrive; Z87.891 Personal history of nicotine dependence; R53.81 Other malaise; R53.1 Weakness; Z79.899 Other long term (current) drug therapy; Z79.890 Hormone replacement therapy; Z79.82 Long term (current) use of aspirin; N40.0 Benign prostatic hyperplasia without lower urinary tract symptoms
CPT/HCPCS: 36415; 80048; 80053; 81001; 82274; 82607; 82746; 83735; 84100; 84439; 84443; 85025; 85027; 92507; 92523; 93005; 94668; 96372; 96374; 97110; 97116; 97129; 97130; 97162; 97166; 97530; 97535; 97802; 99221; 99284; A4216; G0378

== ENCOUNTER 2023-05-31 14:05 | Inpatient (IN) | payer MEDICARE, BC, SELFPAY ==
[2023-05-31 14:27] VITALS: BMI 30.9
[2023-05-31 14:34] VITALS: BP 142/79; PULSE 64; RESP 16; TEMP 36.8; O2SAT 95; BMI 30.9
[2023-05-31 16:00] VITALS: PULSE 64; RESP 18; O2SAT 95
[2023-05-31] MEDS: Potassium Chloride Oral Tablet 10 MEQ 20 MEQ PO (17:57)
[2023-05-31] MEDS: OLANZapine 2.5 MG Tablet PO (17:57)
[2023-05-31 18:36] VITALS: O2SAT 95
--- NOTE | 2023-05-31 18:37 | CPS ---
pt refused to wear cpap but will wear o2 via nc at night
[2023-05-31] MEDS: oxyCODONE 5 MG Tablet PO (20:34)
[2023-05-31] MEDS: Losartan Potassium 50 MG Tablet PO (20:35)
[2023-05-31] MEDS: Senna/Docusate Sodium 1 Tablet 2 TABLET PO (20:35)
--- NOTE | 2023-05-31 20:35 | PCM.HP.STD ---
HPI - General General Date of Admission: 05/31/23 Date of Service: 05/31/23 Chief Complaint: Here for rehabilitation. HPI Narrative AMANDA HERNANDEZ, is a 72 Male who presents with followin05/22/[address] Rogers performed kyphoplasty, in bed due to pain, debilitated from being bedbound. Difficulty walking, falling, fell getting on riding mower. Patient is alcoholic, would like to quit. Rib fractures, vertebral fractures. 05/24/2023 Most calories at home from beer. Alcohol cessation counseling. 05/25/2023 At home, starts drinking at 10AM, drinks continuously until bed. Thinking clearer off alcohol while in hospital/RU. 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 Focus on stopping alcohol. 05/30/2023 He wants to stop alcohol. 05/31/2023 Admit to TCU with debility, here for rehabilitation, strengthening, prior to discharge home with . [facility] Medical History (Updated 05/31/23 @ 20:[address] Good Lizama MD) Adult failure to thrive Alcoholism Anxiety and depression Aphonia Atherosclerotic heart disease of [place] coronary artery without angina pectoris Bifascicular block BPH (benign prostatic hyperplasia) Bradycardia Cardiac arrest with ventricular fibrillation Congestive heart failure (CHF) CVA (cerebral vascular accident) Dysphagia Dyspnea on exertion Essential hypertension Fatigue Former smoker GERD (gastroesophageal reflux disease) History of tracheal stenosis Hyperlipidemia Hypertension Hypothyroidism ICD (implantable cardioverter-defibrillator) in place Ischemic cardiomyopathy Low back pain Myocardial infarct Non-rheumatic mitral regurgitation Right bundle branch block Trigeminal neuralgia Home Medications atorvastatin 40 mg tablet 40 mg PO .HS cholesterol 04/05/18 [History Last Taken 05/30/23 19:55] nitroglycerin 0.4 mg sublingual tablet 0.4 mg sublingual Q5-15M PRN pain 04/05/18 [History Last Taken Unknown] mirtazapine 30 mg tablet (Remeron) 30 mg PO .HS SLEEP 09/26/18 [History Last Taken 05/30/23] omeprazole 20 mg tablet,delayed release 20 mg PO DAILY reflux 09/26/18 [History Last Taken 05/31/23 09:00] potassium chloride 10 mEq tablet,extended release 20 meq PO BID supplement 11/18/19 [History Last Taken 05/31/23 09:00] aspirin 81 mg tablet,delayed release 81 mg PO QDAY heart health 02/01/22 [History Last Taken 05/31/23 09:00] amiodarone 200 mg tablet 100 mg (1/2 x 200 mg) PO QDAY heart rate #90 tabs 08/08/22 [Rx Last Taken 05/31/23 09:00] duloxetine 60 mg capsule,delayed release 60 mg PO DAILY mental health 03/21/23 [History Last Taken 05/31/23 09:00] furosemide 40 mg tablet 40 mg PO DAILY diuretic 03/21/23 [History Last Taken 05/31/23 09:00] levothyroxine 25 mcg tablet 50 mcg PO .Sa/Reynolds thyroid 03/21/23 [History Last Taken Unknown] levothyroxine 25 mcg tablet (Euthyrox) 25 mcg PO .M-F thyroid 03/21/23 [History Last Taken 05/31/23 06:00] olanzapine 2.5 mg tablet 2.5 mg PO 1700 Mental disorder 03/21/23 [History Last Taken 05/30/23 17:25] mirabegron 50 mg tablet,extended release 24 hr (Myrbetriq) 50 mg PO DAILY BLADDER 05/19/23 [History Last Taken 05/31/23 09:00] acetaminophen 500 mg capsule 1,000 mg PO Q8H PRN PRN Pain 1-10 05/22/23 [History Last Taken 05/30/23] metolazone 2.5 mg tablet 2.5 mg PO DAILY PRN FLUID RETENTION 05/22/23 [History Last Taken Unknown] losartan 50 mg tablet 50 mg PO BID BP #60 tabs 05/31/23 [Rx Last Taken 05/31/23 08:55] oxycodone 5 mg tablet 5 mg PO Q8H PRN Pain Score 4-10 7 days #20 tabs 05/31/23 [Rx Last Taken 05/31/23 09:00] sennosides 8.6 mg-docusate sodium 50 mg tablet (Stool Softener-Stimulant Laxative) 2 tab PO BID Constipation #1 TAB 05/31/23 [Rx Last Taken 05/31/23 09:00] Allergy/AdvReac Type Severity Reaction Status Date / Time lisinopril AdvReac cough Verified 05/19/23 16:49 Family History Mother Heart disease Cancer breast CAD (coronary artery disease) Breast cancer Father Colon cancer Sister Breast cancer Rheumatoid arthritis Surgical History Aortocoronary bypass status (~09/28/17) History of cardiac radiofrequency ablation History of implantable cardioverter-defibrillator (ICD) placement (~11/10/17) History of kyphoplasty History of resection and anastomosis of trachea (~04/2021) Hx of CABG Social History household members: spouse number of children: 2 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 Admits to 8-9 beers a day at the present time. substance use type: does not use caffeine: No ROS Constitutional Constitutional: Denies chills, fever(s) or weight gain ENT HEENT: Denies headache(s), nasal congestion or nasal discharge Cardiovascular Cardiovascular: Denies chest pain or palpitations Respiratory/Chest Respiratory/Chest: Denies cough, excessive phlegm production or shortness of breath with exertion Gastrointestinal Gastrointestinal: Denies abdominal pain, nausea or vomiting Genitourinary Genitourinary: Denies dysuria Musculoskeletal Musculoskeletal: Denies joint pain or joint swelling Integumentary Integumentary: Denies rash or wounds Neurologic Neurologic: Denies focal weakness, numbness or tingling Psychiatric Psychiatric: Denies anxiety, auditory hallucinations, depression, homicidal ideation or suicidal ideation Vital Signs Vital Signs Vital Signs: 05/31/23 14:34 05/31/23 16:00 05/31/23 18:36 Temperature 98.3 F Temperature Source Oral Pulse Rate 64 64 Pulse Rhythm Regular Pulse Strength Normal (2+) Respiratory Rate 16 18 Respiratory Effort Normal Respiratory Depth Normal Respiratory Pattern Normal Blood Pressure 142/79 H Blood Pressure Mean 100 Blood Pressure Source Monitor Blood Pressure Position Sitting Blood Pressure Location Right Arm Pulse Ox 95 95 95 Oxygen Delivery Method Room Air Room Air Room Air Weight Weight: 94.846 kg Body Mass Index (BMI) 30.9 Physical Exam Const alert General Appearance: cooperative HEENT normocephalic Eyes PERRL and EOMs intact bilaterally Neck supple, no JVD and no carotid bruits Resp normal respiratory effort, normal air movement and clear to auscultation bilaterally Cardio regular rate and regular rhythm GI normal to inspection, nondistended, normoactive bowel sounds, non-tender and non-distended Extremity normal capillary refill General Extremity: Negative for edema Skin no rashes or lesions noted General Skin Exam: no breakdown Psych affect normal Appearance: appropriate Assessment & Plan Assessment/Plan (1) Debility: (2) Fall: (3) Rib fracture: (4) Vertebral fracture: (5) CVA (cerebral vascular accident): (6) Hyperlipidemia: QUALIFIERS: Hyperlipidemia type: unspecified Qualified Code(s): E78.5 - Hyperlipidemia, unspecified (7) Coronary artery disease: (8) Insomnia: (9) GERD (gastroesophageal reflux disease): (10) Hypokalemia: (11) Hypertension: (12) Anxiety: (13) Atrial fibrillation: (14) Depression: (15) Hypothyroidism: QUALIFIERS: Hypothyroidism type: acquired Qualified Code(s): E03.9 - Hypothyroidism, unspecified (16) Overactive bladder: (17) Alcohol abuse: (18) Congestive heart failure (CHF): PLAN: Plan 72 year old male with below past medical history hospitalized for rib fracture, vertebral fracture, complicated by alcohol abuse, admitted to for 3 hours daily rehabilitation, transferred to TCU with debility, here for rehabilitation, strengthening, prior to discharge home with . Debility - PT/OT. Pain - Tylenol 1000mg q8h prn pain (1-5), Oxycodone 5mg q8h prn pain (6-10). Bowel - senna/colace 2 tablets bid, Magnesium citrate 300ml daily prn. Adult immunization - Administer pneumonia vaccine, covid19 vaccine, flu vaccine as appropriate. DVT prophylaxis - Lovenox 40mg sc daily. Atrial fibrillation - Amiodarone 100mg daily. Coronary artery disease - Losartan 50mg bid, Aspirin 81mg daily, NTG 0.4mg sl q5m prn. Hyperlipidemia - Atorvastatin 40mg qhs. 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 Edema - Furosemide 40mg daily. Hypothyroidism - Levothyroxine 25mcg 5 days/week, 50mcg 2 days/week. Overactive bladder - Myrbetriq 50mg daily. GERD - Pantoprazole 20mg daily. Hypokalemia - KCL 20meq bidcm. Alcohol abuse - Recommend cessation.
[2023-06-01] MEDS: Enoxaparin 40 MG/0.4 ML Syringe SC (05:15)
[2023-06-01 05:54] LABS: Absolute Lymphocyte Count 1.44 X10^3/uL (0.83-4.51); Absolute Neutrophil Count 3.6 X10^3/uL (2.0-7.7); Basophil# 0.04 X10^3/uL; Basophil% 0.7 % (0-1); Eosinophil# 0.19 X10^3/uL; Eosinophils% 3.2 % (0-5); Hematocrit 39.3 % (40-54); Hemoglobin 12.3 g/dL (13.0-16.5); Lymphocyte # 1.44 X10^3/ul (0.83-4.51); Lymphocyte % 24.3 % (19-41); Mean Corp Hgb Conc 31.3 g/dL (32-36); Mean Corpuscular Hgb 32.3 pg (27.0-32.0); Mean Corpuscular Volume 103.1 fL (80-94); Mean Platelet Vol. 9.4 fl (6.2-12.0); Monocyte# 0.61 X10^3/uL; Monocyte% 10.3 % (0-10); NRBC Flagged by Analyzer 0 % (0-5); Neutrophil # 3.62 X10^3/uL (2.7-7.7); Neutrophil % 61.2 % (47-70); Platelet Count 290 K/mm3 (150-450); RBC Distribution Width CV 13.1 % (11.6-14.6); RBC Distribution Width SD 49.7 fl (35.1-43.9); Red Blood Count 3.81 M/mm3 (4.6-6.2); White Blood Count 5.9 K/mm3 (4.4-11.0)
[2023-06-01 06:27] LABS: Anion Gap 3 (5-15); BUN 17 mg/dL (7-18); BUN/Creat Ratio 16.3 RATIO (10-20); Calcium,Total 8.8 mg/dL (8.5-10.1); Chloride 104 mmol/L (98-107); Creatinine, Serum 1.04 mg/dL (0.70-1.30); EST Glomerular Filtration Rate 75 mL/min (>60); Est Glom Filt Rate - Afr Amer 91 mL/min (>60); Estimated Creatinine Clearance 66.09 ml/min; Glucose 84 mg/dL (74-106); Sodium Level 139 mmol/L (136-145)
[2023-06-01 07:08] VITALS: O2SAT 98
[2023-06-01] MEDS: Potassium Chloride Oral Tablet 10 MEQ 20 MEQ PO ×2 (07:56→16:38)
--- NOTE | 2023-06-01 10:38 | PHA.CONS_ITS ---
Documented by User: Rodrigo Vance 06/01/23 11:06 TCU RX Drug Regimen Review Subjective/Objective Subjective/Objective: Subjective: 72 year old male with below past medical history hospitalized for rib fracture, vertebral fracture, complicated by alcohol abuse, admitted to for 3 hours daily rehabilitation, transferred to TCU with debility, here for rehabilitation, strengthening, prior to discharge home with . Objective: Allergies lisinopril Adverse Reaction (Verified 05/19/23 16:49) cough Current Medications Generic Name Dose Route Start Last Admin Trade Name Freq PRN Reason Stop Dose Admin Acetaminophen 1,000 mg 05/31/23 20:54 Acetaminophen 500 Mg Tablet PO Q8H PRN PRN Pain Score 1-5 Amiodarone HCl 100 mg 06/01/23 10:00 Amiodarone 200 Mg Tablet PO DAILY [facility] Aspirin 81 mg 06/01/23 10:00 Aspirin E.C. 81 Mg Tablet PO DAILY [facility] Atorvastatin Calcium 40 mg 05/31/23 22:00 Atorvastatin Calcium 40 Mg Tablet PO .HS [facility] Duloxetine HCl 60 mg 06/01/23 10:00 Duloxetine Hcl 60 Mg Capsule PO DAILY [facility] Enoxaparin Sodium 40 mg 06/01/23 06:00 06/01/23 05:15 Enoxaparin 40 Mg/0.4 Ml Syringe SC 40 mg DAILY@0600 [facility] Administration Furosemide 40 mg 06/01/23 10:00 Furosemide 40 Mg Tablet PO DAILY [facility] Levothyroxine Sodium 25 mcg 06/01/23 06:00 Levothyroxine 25 Mcg Tablet PO .M-F@0600 [facility] Levothyroxine Sodium 50 mcg 06/03/23 06:00 Levothyroxine 25 Mcg Tablet PO .Sa/Reynolds@0600 [facility] Losartan Potassium 50 mg 05/31/23 22:00 05/31/23 20:35 Losartan Potassium 50 Mg Tablet PO 50 mg BID [facility] Administration Magnesium Citrate 300 ml 05/31/23 20:25 Magnesium Citrate 300 Ml PO DAILY PRN PRN Constipation Mirabegron 50 mg 06/01/23 10:00 Mirabegron 50 Mg Tab.Er.24h PO DAILY [facility] Mirtazapine 30 mg 05/31/23 22:00 Mirtazapine 30 Mg Tablet PO .HS [facility] Nitroglycerin 0.4 mg 05/31/23 15:02 Nitroglycerin (Inpatient Use) 0.4 Mg Tab.Subl SL Q5M PRN CARDIAC/CHEST PAIN Oxycodone HCl 5 mg 05/31/23 20:54 Oxycodone 5 Mg Tablet PO Q8H PRN PRN Pain Score 6-10 Pantoprazole Sodium 20 mg 06/01/23 10:00 Pantoprazole Sodium 20 Mg Tablet PO DAILY [facility] Potassium Chloride 20 meq 05/31/23 17:00 06/01/23 07:56 Potassium Chloride Oral Tablet 10 Meq PO 20 meq BIDCM [facility] Administration Senna/Docusate Sodium 2 tablet 05/31/23 22:00 05/31/23 20:35 Senna/Docusate Sodium 1 Tablet PO 2 tablet BID [facility] Administration Tuberculin PPD 0.1 ml 06/08/23 10:00 Tuberculin,Purif.Prot.Deriv. 50 Tu/Ml Vial ID 06/08/23 10:01 X1 ONE Problem List (Updated 05/31/23 @ 20:[address] Good Lizama MD) Alcohol abuse (Acute) Congestive heart failure (CHF) (Acute) Overactive bladder (Acute) Depression (Acute) Atrial fibrillation (Acute) Anxiety (Acute) Hypertension (Chronic) Hypokalemia (Acute) GERD (gastroesophageal reflux disease) (Acute) Insomnia (Acute) Coronary artery disease (Acute) Vertebral fracture (Acute) Rib fracture (Acute) Fall (Acute) Debility (Acute) CVA (cerebral vascular accident) (Acute) Hypothyroidism (Acute) Hyperlipidemia (Chronic) Vital Signs Temp Pulse Resp BP Pulse Ox O2 Del Method O2 Flow Rate 98.3 F 64 18 142/79 H 98 Nasal Cannula 3 05/31/23 14:34 05/31/23 16:00 05/31/23 16:00 05/31/23 14:34 06/01/23 07:08 06/01/23 07:08 06/01/23 07:08 Oxygen Flow Rate (L/min) 3 Oxygen Delivery Method Nasal Cannula Weight: 94.846 kg Body Mass Index (BMI) 30.9 Sodium 139 mmol/L (136-145) 06/01/23 05:19 Potassium 4.0 mmol/L (3.5-5.1) 06/01/23 05:19 Chloride 104 mmol/L (98-107) 06/01/23 05:19 Carbon Dioxide 32.0 mmol/L (21.0-32.0) 06/01/23 05:19 Anion Gap 3 (5-15) L 06/01/23 05:19 BUN 17 mg/dL (7-18) 06/01/23 05:19 Creatinine 1.04 mg/dL (0.70-1.30) 06/01/23 05:19 Est GFR (MDRD) Af Amer 91 mL/min (>60) 06/01/23 05:19 Est GFR (MDRD) Non-Af 75 mL/min (>60) 06/01/23 05:19 BUN/Creatinine Ratio 16.3 RATIO (10-20) 06/01/23 05:19 Glucose 84 mg/dL (74-106) 06/01/23 05:19 Assessment/Plan: 1. Pain: acetaminophen 1000 mg Q8H PRN pain 1-5, oxycodone 5 mg Q8H PRN pain 6- 10. The patient has not used any PRN doses of either acetaminophen or oxycodone to this point. Please continue to monitor for PRN usage, pain level, ataxia/syncope (oxycodone Beer's criteria), bowel function, respiratory depression, as well as liver function (last AST/ALT on 05/23 were 21/16). 2. Bowel: senna/docusate 2 tablets PO BID, magnesium citrate 300 mL PO daily prn constipation. The patient had a bowel movement documented yesterday 05/31/23, and has used no doses of PRN magnesium citrate to this point. Please continue to monitor for constipation and diarrhea. 3. DVT prophylaxis: Enoxaparin 40 mg SQ daily. Please continue to monitor for s/s of DVT, Hgb (last 12.3 on 06/01/23) as well as for s/s of bleeding (Beer's criteria) and renal function (last Scr 1.04, CrCL ~ 65). 4. Atrial fibrillation/Coronary artery disease: amiodarone 100 mg PO daily, losartan 50 mg bid, aspirin 81 mg daily, nitroglycerin 0.4 mg SL Q5M PRN chest pain. The patient has not used any doses of prn nitroglycerin to this point. Please continue to monitor for s/s of Afib (last EKG on 05/19 showed sinus sally), HR (recently 55-70 beats/min), blood pressure (recent 142-165/64-84), potassium (most recent value 4.0), liver function (see #1 above for LFTs), s/s of bleeding, and for s/s of chest pain. The patients blood pressures have remained high, consider addition of another agent to help control blood pressures such as amlodipine 5 mg PO daily. 5. Hyperlipidemia: atorvastatin 40 mg PO QHS. Please continue to monitor lipid panel (last lipid panel was in June of 2019), LFTs (see #1 above), and for s/s of muscle aches/pains. Consider ordering a lipid panel as the patient does not have record of a lipid panel within the last year. 6. Edema: furosemide 40 mg PO daily. Please continue to monitor for edema, electrolytes including potassium (4.0) and sodium (139, Beer's criteria), as well as for s/s of intra-vascular volume depletion and dehydration. 7. Hypothyroidism: levothyroxine 25 mcg PO daily Monday - Monday, levothyroxine 50 mcg PO daily Monday and Monday. Please continue to monitor T4/TSH (1.23/3.11 on 05/23/23), as well as for s/s of hypo and hyperthyroidism. 8. Overactive bladder: mirabegron 50 mg PO daily. Please continue to monitor for for urinary continence, blood pressures (See #4 above regarding BP) as well as for s/s of urinary tract infections. 9. GERD: pantoprazole 20 mg PO daily. Please continue to monitor for s/s of GERD, s/s of clostridium difficile infection (Beer's criteria), calcium level (last 8.8) as well as s/s of bone loss and fracture (Beer's criteria). 10. Hypokalemia: potassium chloride 20 mEq PO BID with meals. Please continue to monitor for GI distress as well as potassium level (last 4.0). Assessment/Plan for indications treated with psychotropic medications: 1. Depression: duloxetine 60 mg PO daily, mirtazapine 30 mg PO QHS. Please continue to monitor for s/s of drowsiness, SI, ataxia/syncope (duloxetine Beer's criteria), sodium (last 139 Mirtazapine Beer's criteria). Patient is on a stable chronic long-term dose, see provider notes regarding GDR not recommended. Medical chart and medication regimen reviewed. The following medication irregularities or issues were identified: 1. Atrial fibrillation/Coronary artery disease: amiodarone 100 mg PO daily, losartan 50 mg bid, aspirin 81 mg daily, nitroglycerin 0.4 mg SL Q5M PRN chest pain. The patient has not used any doses of prn nitroglycerin to this point. Please continue to monitor for s/s of Afib (last EKG on 05/19 showed sinus sally), HR (recently 55-70 beats/min), blood pressure (recent 142-165/64-84), potassium (most recent value 4.0), liver function (see #1 above for LFTs), s/s of bleeding, and for s/s of chest pain. The patients blood pressures have niesha ined high, consider addition of another agent to help control blood pressures such as amlodipine 5 mg PO daily. 2. Hyperlipidemia: atorvastatin 40 mg PO QHS. Please continue to monitor lipid panel (last lipid panel was in June of 2019), LFTs (see #1 above), and for s/s of muscle aches/pains. Consider ordering a lipid panel as the patient does not have record of a lipid panel within the last year. Date Date of Note:: 06/01/23 Documented by User: Dr. Good Lizama MD 06/01/23 11:25 TCU RX Drug Regimen Review Provider Comments Provider responsibility Provider Comments to Recommendations by Pharmacy: Agree
[2023-06-01] MEDS: oxyCODONE 5 MG Tablet PO (10:51)
[2023-06-01] MEDS: Senna/Docusate Sodium 1 Tablet 2 TABLET PO ×2 (10:51→20:10)
[2023-06-01] MEDS: DULoxetine Hcl 60 MG Capsule PO (10:51)
[2023-06-01] MEDS: Aspirin E.C. 81 MG Tablet PO (10:52)
[2023-06-01] MEDS: Furosemide 40 MG Tablet PO (10:52)
[2023-06-01] MEDS: Amiodarone 200 MG Tablet 100 MG PO (10:52)
[2023-06-01] MEDS: Mirabegron 50 MG TAB.ER.24H PO (10:52)
[2023-06-01] MEDS: Pantoprazole Sodium 20 MG Tablet PO (10:52)
[2023-06-01] MEDS: Losartan Potassium 50 MG Tablet PO ×2 (12:15→20:10)
[2023-06-01] MEDS: Tuberculin,Purif.prot.deriv. 50 TU/ML Vial 0.1 ML ID (12:15)
[2023-06-01] MEDS: amLODIPine 5 MG Tablet PO (14:23)
[2023-06-01 15:07] VITALS: BP 127/70; PULSE 58; RESP 16; TEMP 36.2; O2SAT 93
[2023-06-02] MEDS: Enoxaparin 40 MG/0.4 ML Syringe SC (05:37)
[2023-06-02] MEDS: oxyCODONE 5 MG Tablet PO ×2 (09:29→20:04)
[2023-06-02] MEDS: Aspirin E.C. 81 MG Tablet PO (09:39)
[2023-06-02] MEDS: Mirabegron 50 MG TAB.ER.24H PO (09:39)
[2023-06-02] MEDS: Senna/Docusate Sodium 1 Tablet 2 TABLET PO (09:40)
[2023-06-02] MEDS: Furosemide 40 MG Tablet PO (09:40)
[2023-06-02] MEDS: amLODIPine 5 MG Tablet PO (09:40)
[2023-06-02] MEDS: Amiodarone 200 MG Tablet 100 MG PO (09:40)
[2023-06-02] MEDS: Pantoprazole Sodium 20 MG Tablet PO (09:40)
[2023-06-02] MEDS: Losartan Potassium 50 MG Tablet PO ×2 (09:40→20:06)
[2023-06-02] MEDS: DULoxetine Hcl 60 MG Capsule PO (09:40)
[2023-06-02] MEDS: Potassium Chloride Oral Tablet 10 MEQ 20 MEQ PO ×2 (09:40→17:21)
[2023-06-02 09:44] VITALS: BP 140/80; PULSE 57; O2SAT 98
--- NOTE | 2023-06-02 10:32 | NURSING ---
Distillery Manager Note; Activity Asset: Loco Kinsey prefers to be called Darrell. Darrell is independent in his choice of daily activities. He will watch tv, read the paper and visit w/family and friends. Darrell prefers independent activities in his room at this time. He welcomes visit with the camp program director and therapy dog when available. Staff will continue to remind him of daily activities and respect his right to say no.
--- NOTE | 2023-06-02 13:35 | NS ---
MST = 1 - low risk of malnutrition. Food dislikes: sylvie, Provided written copy of daily specials/first choice menu w/ instructions on how to order.
[2023-06-02 13:53] VITALS: BP 125/72; PULSE 65; RESP 16; TEMP 36.4; O2SAT 91
--- NOTE | 2023-06-02 16:10 | CHAPLAIN ---
Type of Pastoral Visit _x__ Initial Visit ___ Follow-up Visit ___ On-call Visit ___ General Patient Visit ___ Spiritual Assessment ___ Family Conference ___ Bereavement ___ Rapid Response ___ Code Blue ___ Other (describe below) Pastoral Care Referral From _x__ Patient ___ Family ___ Nurse ___ Physician ___ Street Contractor ___ Skilled Laborer ___ Other (describe below) Sacrament/Intervention _x__ Active listening ___ Anointing ___ Orthodoxy ___ Bereavement ___ Communion ___ Bindu exploration ___ ___ Life review _x__ Prayer ___ Reconciliation ___ Sacrament of Sick ___ Supportive presence ___ Wedding ___ Other (describe below) Pastoral Comments
--- NOTE | 2023-06-02 16:24 | NURSING ---
PER THERAPY, PT CAN TRANSFER AND WALK PT WITH WALKER.
--- NOTE | 2023-06-02 16:41 | NURSING ---
PT CAME TO THIS NURSE ABOUT THE PROCEDURE ON DISCHARGING HER SOON AND ASKING HOW TO GO ABOUT IT. THIS NURSE STATED I WOULD LET THE AUTOMATION DESIGN ENGINEER SO SHE COULD GET WITH HER ON MONDAY. THANKFUL.
[2023-06-02 20:00] VITALS: BP 145/80; PULSE 59; RESP 16; O2SAT 97
[2023-06-02 20:13] VITALS: PULSE 59; RESP 16; O2SAT 97
--- NOTE | 2023-06-02 21:33 | CPS ---
Pt has own cpap but refused for it to be setup and states he just wants to wear O2
[2023-06-03] MEDS: Enoxaparin 40 MG/0.4 ML Syringe SC (05:52)
[2023-06-03 08:27] VITALS: O2SAT 96
[2023-06-03] MEDS: Amiodarone 200 MG Tablet 100 MG PO (08:42)
[2023-06-03] MEDS: Potassium Chloride Oral Tablet 10 MEQ 20 MEQ PO ×2 (08:42→17:31)
[2023-06-03] MEDS: Losartan Potassium 50 MG Tablet PO ×2 (08:43→21:11)
[2023-06-03] MEDS: Aspirin E.C. 81 MG Tablet PO (08:44)
[2023-06-03] MEDS: Furosemide 40 MG Tablet PO (08:44)
[2023-06-03] MEDS: DULoxetine Hcl 60 MG Capsule PO (08:44)
[2023-06-03] MEDS: Mirabegron 50 MG TAB.ER.24H PO (08:45)
[2023-06-03] MEDS: amLODIPine 5 MG Tablet PO (08:45)
[2023-06-03] MEDS: Pantoprazole Sodium 20 MG Tablet PO (08:45)
[2023-06-03 13:46] VITALS: BP 133/67; PULSE 59; RESP 16; TEMP 36.6; O2SAT 92
[2023-06-03] MEDS: oxyCODONE 5 MG Tablet PO (15:34)
[2023-06-04] MEDS: oxyCODONE 5 MG Tablet PO ×2 (02:49→15:44)
[2023-06-04] MEDS: Enoxaparin 40 MG/0.4 ML Syringe SC (05:58)
[2023-06-04 07:30] VITALS: O2SAT 90
[2023-06-04] MEDS: Potassium Chloride Oral Tablet 10 MEQ 20 MEQ PO ×2 (09:27→17:48)
[2023-06-04] MEDS: Aspirin E.C. 81 MG Tablet PO (09:28)
[2023-06-04] MEDS: Furosemide 40 MG Tablet PO (09:28)
[2023-06-04] MEDS: amLODIPine 5 MG Tablet PO (09:28)
[2023-06-04] MEDS: Pantoprazole Sodium 20 MG Tablet PO (09:28)
[2023-06-04] MEDS: Senna/Docusate Sodium 1 Tablet 2 TABLET PO ×2 (09:28→20:14)
[2023-06-04] MEDS: Losartan Potassium 50 MG Tablet PO ×2 (09:28→20:14)
[2023-06-04] MEDS: DULoxetine Hcl 60 MG Capsule PO (09:28)
[2023-06-04] MEDS: Mirabegron 50 MG TAB.ER.24H PO (09:29)
[2023-06-04] MEDS: Amiodarone 200 MG Tablet 100 MG PO (09:30)
[2023-06-04 09:35] VITALS: BP 147/81; PULSE 55; RESP 18; TEMP 36.4; O2SAT 95
[2023-06-04 10:00] VITALS: PULSE 55; RESP 18; O2SAT 94
[2023-06-04 21:15] VITALS: BP 124/74; PULSE 55; RESP 16; O2SAT 94
[2023-06-05] MEDS: oxyCODONE 5 MG Tablet PO ×2 (04:07→18:17)
[2023-06-05 08:56] VITALS: O2SAT 94
[2023-06-05] MEDS: Amiodarone 200 MG Tablet 100 MG PO (08:58)
[2023-06-05] MEDS: Potassium Chloride Oral Tablet 10 MEQ 20 MEQ PO ×2 (08:58→18:13)
[2023-06-05] MEDS: Furosemide 40 MG Tablet PO (08:59)
[2023-06-05] MEDS: Losartan Potassium 50 MG Tablet PO ×2 (08:59→21:49)
[2023-06-05] MEDS: Aspirin E.C. 81 MG Tablet PO (08:59)
[2023-06-05] MEDS: Enoxaparin 40 MG/0.4 ML Syringe SC (08:59)
[2023-06-05] MEDS: DULoxetine Hcl 60 MG Capsule PO (08:59)
[2023-06-05] MEDS: Mirabegron 50 MG TAB.ER.24H PO (09:00)
[2023-06-05] MEDS: Senna/Docusate Sodium 1 Tablet 2 TABLET PO (09:00)
[2023-06-05] MEDS: Pantoprazole Sodium 20 MG Tablet PO (09:00)
[2023-06-05] MEDS: amLODIPine 5 MG Tablet PO (09:00)
--- NOTE | 2023-06-05 12:21 | CASEMGMT ---
Social Work requested call from this worker to discuss DC plans. SW phoned but unavailable to discuss at that time. Later, presented to this worker's office to discuss. explained son is coming into town from [place] this Monday and Monday and pt wants to be home for that. took pt to his appt this morning and noted pt is moving slower and feet are shuffling. SW agreed as this OT noted the same thing during the walk by this worker's office this morning. still hesitant about taking pt home before this week. SW offered pt can continue to improve but without the 5 days/wk of therapy at home, naturally the pt will decline and this may be his new normal. expressed understanding. This worker and discussed [place] and PT SITTER for 's appts, etc. once pt is home. Also discussed BLANQUITA for this weekend while son is home. Pt has POC mtg scheduled for 06/07 and can hear therapy report and if Dr will approve BLANQUITA. appreciative. SW will continue to follow. Mis Edge MSW PAVING FOREMAN
--- NOTE | 2023-06-05 12:51 | NURSING ---
Offered covid booster, education about vaccine provided. Patient refuses at this time.
[2023-06-05 13:37] VITALS: BP 127/71; PULSE 61; RESP 16; TEMP 36.3; O2SAT 93
[2023-06-05] MEDS: Tamsulosin HCl 0.4 MG Capsule PO (18:13)
[2023-06-06 07:14] VITALS: O2SAT 97
[2023-06-06] MEDS: Potassium Chloride Oral Tablet 10 MEQ 20 MEQ PO ×2 (09:22→17:52)
[2023-06-06] MEDS: amLODIPine 5 MG Tablet PO (09:23)
[2023-06-06] MEDS: Furosemide 40 MG Tablet PO (09:23)
[2023-06-06] MEDS: Mirabegron 50 MG TAB.ER.24H PO (09:23)
[2023-06-06] MEDS: DULoxetine Hcl 60 MG Capsule PO (09:23)
[2023-06-06] MEDS: Aspirin E.C. 81 MG Tablet PO (09:23)
[2023-06-06] MEDS: Pantoprazole Sodium 20 MG Tablet PO (09:24)
[2023-06-06] MEDS: Losartan Potassium 50 MG Tablet PO ×2 (09:24→23:03)
[2023-06-06] MEDS: Senna/Docusate Sodium 1 Tablet 2 TABLET PO ×2 (09:24→23:02)
[2023-06-06] MEDS: Amiodarone 200 MG Tablet 100 MG PO (09:24)
[2023-06-06] MEDS: Enoxaparin 40 MG/0.4 ML Syringe SC (09:25)
[2023-06-06 09:32] VITALS: BP 117/61; PULSE 64
[2023-06-06 13:11] VITALS: BMI 30.2
[2023-06-06 14:45] VITALS: BP 102/56; PULSE 57; RESP 14; TEMP 36.5; O2SAT 92
--- NOTE | 2023-06-06 16:27 | CASEMGMT ---
Social Work BIMS (07/09) and PHQ-9 (01/19) completed for MDS assessment. Mis Edge MSW CARPET JACK
[2023-06-06] MEDS: Tamsulosin HCl 0.4 MG Capsule PO (17:52)
--- NOTE | 2023-06-06 19:53 | NURSING ---
PT AND NOTIFIED OF A PT TESTING POSITIVE FOR COVID.
[2023-06-06 23:00] VITALS: PULSE 95; RESP 16; O2SAT 58
[2023-06-06] MEDS: oxyCODONE 5 MG Tablet PO (23:02)
[2023-06-06 23:11] VITALS: BP 133/68; PULSE 58; O2SAT 95
[2023-06-07] MEDS: Potassium Chloride Oral Tablet 10 MEQ 20 MEQ PO ×2 (08:35→17:26)
[2023-06-07] MEDS: Amiodarone 200 MG Tablet 100 MG PO (08:36)
[2023-06-07] MEDS: Furosemide 40 MG Tablet PO (08:37)
[2023-06-07] MEDS: amLODIPine 5 MG Tablet PO (08:37)
[2023-06-07] MEDS: DULoxetine Hcl 60 MG Capsule PO (08:37)
[2023-06-07] MEDS: Losartan Potassium 50 MG Tablet PO (08:37)
[2023-06-07] MEDS: Aspirin E.C. 81 MG Tablet PO (08:37)
[2023-06-07] MEDS: Mirabegron 50 MG TAB.ER.24H PO (08:37)
[2023-06-07] MEDS: Pantoprazole Sodium 20 MG Tablet PO (08:37)
[2023-06-07] MEDS: Enoxaparin 40 MG/0.4 ML Syringe SC (08:38)
[2023-06-07] MEDS: Senna/Docusate Sodium 1 Tablet 2 TABLET PO ×2 (08:38→20:36)
[2023-06-07] MEDS: oxyCODONE 5 MG Tablet PO ×2 (08:42→20:40)
[2023-06-07 08:44] VITALS: BP 106/61; PULSE 65
--- NOTE | 2023-06-07 10:23 | CASEMGMT ---
Social Work IDT met with patient and for care plan meeting. Discussed patient's progress in PT/OT/ST/SN. Educated to Medicare benefit. Encouraged to contact secondary insurance to ensure copay coverage. Encouraged pt still wear CPAP at night. Educated to Dr. Lizama approving weekend BLANQUITA for son's visit. Requested bring copies of advanced directives. had papers with her. SW placed copies on chart. Discussed having pt remain through the weekend then revisit on Monday to see how pt did at home on BLANQUITA, then will decide on DC date. Discussed HHC vs OP and any DME needs. SW will coordinate at DC. Will continue to follow. GEOFF Corrigan
--- NOTE | 2023-06-07 11:14 | NURSING ---
PT LEFT BY WHEEL CHAIR WITH AT 10:50 TO APPOINTMENT.
--- NOTE | 2023-06-07 11:32 | NURSING ---
Supervisor Felting Note; MDS Complete
--- NOTE | 2023-06-07 11:45 | NURSING ---
OK'D FOR BLANQUITA THIS WEEKEND DUE TO PT SON COMING IN FROM ANOTHER STATE. PT WILL LET STAFF KNOW WHAT TIME SHE WILL BE PICKING PT UP. RN AWARE
--- NOTE | 2023-06-07 13:35 | NUR.TO.PHY ---
PT RETURNED FROM OFFICE. STATED WANTED PT TO HAVE A MRI AND WILL FAX THE ORDER TO TCU.
--- NOTE | 2023-06-07 14:10 | NURSING ---
1355 PT LEFT BY WHEEL CHAIR WITH TO [facility] APPOINTMENT.
--- NOTE | 2023-06-07 14:51 | NURSING ---
PT RETURNED FROM [facility] BY WHEEL CHAIR WITH . SEE NEW ORDERS.
[2023-06-07 15:36] VITALS: BP 129/77; PULSE 64; RESP 14; TEMP 36.4; O2SAT 97
[2023-06-07] MEDS: Tamsulosin HCl 0.4 MG Capsule PO (17:26)
[2023-06-07] MEDS: Carvedilol 3.125 MG TABLET PO (20:36)
[2023-06-08 05:59] LABS: Absolute Lymphocyte Count 0.42 X10^3/uL (0.83-4.51); Absolute Neutrophil Count 4.2 X10^3/uL (2.0-7.7); Basophil# 0.02 X10^3/uL; Basophil% 0.4 % (0-1); Eosinophil# 0.05 X10^3/uL; Eosinophils% 0.9 % (0-5); Hematocrit 40.1 % (40-54); Lymphocyte # 0.42 X10^3/ul (0.83-4.51); Lymphocyte % 7.6 % (19-41); Mean Corp Hgb Conc 32.4 g/dL (32-36); Mean Corpuscular Hgb 32.7 pg (27.0-32.0); Mean Corpuscular Volume 100.8 fL (80-94); Mean Platelet Vol. 9.6 fl (6.2-12.0); Monocyte% 14.5 % (0-10); NRBC Flagged by Analyzer 0 % (0-5); Neutrophil % 76.2 % (47-70); POSITIVE DIFFERENTIAL YES; Platelet Count 245 K/mm3 (150-450); RBC Distribution Width CV 12.8 % (11.6-14.6); RBC Distribution Width SD 48.4 fl (35.1-43.9); Red Blood Count 3.98 M/mm3 (4.6-6.2); White Blood Count 5.5 K/mm3 (4.4-11.0)
[2023-06-08 06:04] LABS: Differential Indicated SCAN CRITERIA MET
[2023-06-08 06:22] LABS: Anion Gap 3 (5-15); BUN 14 mg/dL (7-18); BUN/Creat Ratio 12.7 RATIO (10-20); Calcium,Total 8.9 mg/dL (8.5-10.1); Chloride 104 mmol/L (98-107); EST Glomerular Filtration Rate 70 mL/min (>60); Est Glom Filt Rate - Afr Amer 85 mL/min (>60); Estimated Creatinine Clearance 62.49 ml/min; Glucose 87 mg/dL (74-106); Potassium 4.1 mmol/L (3.5-5.1); Sodium Level 136 mmol/L (136-145)
[2023-06-08 06:35] LABS: Differential Comment SCANNED
[2023-06-08 08:26] LABS: Vitamin D,25 Hydroxy 65.1 ng/mL
[2023-06-08] MEDS: Mirabegron 50 MG TAB.ER.24H PO (08:43)
[2023-06-08] MEDS: Senna/Docusate Sodium 1 Tablet 2 TABLET PO ×2 (08:43→20:08)
[2023-06-08] MEDS: amLODIPine 5 MG Tablet PO (08:43)
[2023-06-08] MEDS: DULoxetine Hcl 60 MG Capsule PO (08:43)
[2023-06-08] MEDS: oxyCODONE 5 MG Tablet PO ×2 (08:43→17:14)
[2023-06-08] MEDS: Potassium Chloride Oral Tablet 10 MEQ 20 MEQ PO ×2 (08:43→17:17)
[2023-06-08] MEDS: Losartan Potassium 50 MG Tablet PO (08:44)
[2023-06-08] MEDS: Furosemide 40 MG Tablet PO (08:44)
[2023-06-08] MEDS: Pantoprazole Sodium 20 MG Tablet PO (08:44)
[2023-06-08] MEDS: Aspirin E.C. 81 MG Tablet PO (08:44)
[2023-06-08] MEDS: Carvedilol 3.125 MG TABLET PO ×2 (08:45→20:08)
[2023-06-08] MEDS: Enoxaparin 40 MG/0.4 ML Syringe SC (08:45)
[2023-06-08 12:09] LABS: Bedside Glucose 75 mg/dL (74-106)
--- NOTE | 2023-06-08 12:21 | NURSING ---
Patient fell approximately 1145 this AM. Fell onto right side hit head and right shoulder and broke the seat of chair in room. patient c/o hip pain as well. Patient s/p stroke in 2018. On anticoagulation therapy. notified. Ordered xray of hips/shoulder/neck and CT of head. Patient assisted back to chair. Patient VSS WNL. Patient A&Ox3.
--- NOTE | 2023-06-08 12:25 | RAD_ITS ---
STUDY: X-RAY - RIGHT SHOULDER REASON FOR EXAM: Male, 72 years old. Post Fall TECHNIQUE: 4 view(s) of the shoulder. COMPARISON: None. FINDINGS: Normal glenohumeral articulation. Normal acromioclavicular joint. Normal acromion. Normal humeral head and visualized proximal humerus. The soft tissue structures are unremarkable. Normal visualized pulmonary apex. RAD/Shoulder min 2 Views IMPRESSION: Normal x-ray examination of the shoulder. Electronically Signed: Mic Corona MD at 12:45 EDT ,
--- NOTE | 2023-06-08 12:25 | RAD_ITS ---
INDICATION: Post Fall EXAMINATION/TECHNIQUE: X-RAY - XR Hips Bilateral with Pelvis when performed; Min 5 Views COMPARISON: No relevant prior comparison study available FINDINGS: PELVIC BONES: No displaced fracture, destructive or sclerotic lesions. Note that overlapping bowel shadows may however obscure fine detail. Degenerative changes of the sacroiliac joints bilaterally. No widening of the pubic symphysis. HIPS: Moderate degree of the joint space involving both hip joints with acetabular spur formation. Questionable femoral acetabular impingement involving the right hip joint. SOFT TISSUES: No soft tissue swelling or gas. RAD/Hips B/L min 2 views w/ Pelvis IMPRESSION: Degenerative changes. No fracture or dislocation. Findings suggestive of possible right femoral acetabular impingement. Electronically Signed: Mic Corona MD at 12:46 EDT ,
--- NOTE | 2023-06-08 12:25 | RAD_ITS ---
STUDY: X-RAY - CERVICAL SPINE REASON FOR EXAM: Male, 72 years old. Post Fall TECHNIQUE: 5 view(s) of the cervical spine were obtained. COMPARISON: None FINDINGS: There are degenerative changes of the anterior atlantoaxial articulation. Normal odontoid process. Normal cervical lordosis. Normal vertebral bodies and endplates. Disc space narrowing and spondylosis at the C6-C7 level. Normal visualized intervertebral neuroforamina. Facet joint osteoarthritis. The soft tissue structures are unremarkable. RAD/Cerv Spine 4 or 5 Views IMPRESSION: Disc space narrowing and spondylosis at the C6-C7 level. Electronically Signed: Mic Corona MD at 12:44 EDT ,
--- NOTE | 2023-06-08 14:29 | NURSING ---
MRI questions done with patient in room. He reports he needs rep to come turn off pacer for procedure. Spoke with MRI staff, they confirm they will need to schedule scan for when rep available. They have info on pacer, don't need to to bring in card. Patient and updated in room. Patient asking about doing an MRI of his back that Dr. Houston wanted. Called and spoke with staff at Dr. Houston's office. They confirm that they do want an MRI but are awaiting insurance approval. If approved, they will fax order to TCU.
[2023-06-08 15:14] VITALS: BP 105/64; PULSE 64; RESP 16; TEMP 36.6; O2SAT 93
--- NOTE | 2023-06-08 16:28 | NURSING ---
Updated patient and in room that staff members have tested positive for covid.
[2023-06-08] MEDS: Acetaminophen 500 MG Tablet 1000 MG PO (17:13)
[2023-06-08] MEDS: Tuberculin,Purif.prot.deriv. 50 TU/ML Vial 0.1 ML ID (17:14)
[2023-06-08 19:30] VITALS: O2SAT 94
[2023-06-09] MEDS: oxyCODONE 5 MG Tablet PO ×2 (01:10→13:12)
[2023-06-09] MEDS: Acetaminophen 500 MG Tablet 1000 MG PO ×2 (01:10→17:32)
[2023-06-09] MEDS: Potassium Chloride Oral Tablet 10 MEQ 20 MEQ PO ×2 (08:03→17:30)
[2023-06-09 08:15] VITALS: BP 119/59; PULSE 79; RESP 18; TEMP 36.3; O2SAT 93
[2023-06-09] MEDS: Enoxaparin 40 MG/0.4 ML Syringe SC (09:38)
[2023-06-09] MEDS: Mirabegron 50 MG TAB.ER.24H PO (09:38)
[2023-06-09] MEDS: DULoxetine Hcl 60 MG Capsule PO (09:38)
[2023-06-09] MEDS: Aspirin E.C. 81 MG Tablet PO (09:38)
[2023-06-09] MEDS: Furosemide 40 MG Tablet PO (09:38)
[2023-06-09] MEDS: Pantoprazole Sodium 20 MG Tablet PO (09:39)
[2023-06-09] MEDS: Losartan Potassium 50 MG Tablet PO (09:39)
[2023-06-09] MEDS: amLODIPine 5 MG Tablet PO (09:39)
[2023-06-09] MEDS: Senna/Docusate Sodium 1 Tablet 2 TABLET PO ×2 (09:39→20:52)
[2023-06-09] MEDS: Carvedilol 3.125 MG TABLET PO ×2 (09:39→20:52)
[2023-06-09 14:48] VITALS: BP 128/65; PULSE 56; RESP 16; TEMP 36.6; O2SAT 96
--- NOTE | 2023-06-09 15:30 | NURSING ---
Updated family that staff members and patients tested covid positive.
--- NOTE | 2023-06-09 16:02 | NURSING ---
DR QUEZADA AWARE OF MRI RESULTS. NO N.O.
[2023-06-10] MEDS: oxyCODONE 5 MG Tablet PO (04:56)
[2023-06-10] MEDS: Losartan Potassium 50 MG Tablet PO (09:53)
[2023-06-10] MEDS: Senna/Docusate Sodium 1 Tablet 2 TABLET PO ×2 (09:53→21:57)
[2023-06-10] MEDS: Pantoprazole Sodium 20 MG Tablet PO (09:53)
[2023-06-10] MEDS: Mirabegron 50 MG TAB.ER.24H PO (09:53)
[2023-06-10] MEDS: Aspirin E.C. 81 MG Tablet PO (09:53)
[2023-06-10] MEDS: DULoxetine Hcl 60 MG Capsule PO (09:53)
[2023-06-10] MEDS: amLODIPine 5 MG Tablet PO (09:53)
[2023-06-10] MEDS: Furosemide 40 MG Tablet PO (09:53)
[2023-06-10] MEDS: Potassium Chloride Oral Tablet 10 MEQ 20 MEQ PO ×2 (09:54→16:45)
[2023-06-10] MEDS: Carvedilol 3.125 MG TABLET PO ×2 (09:54→21:57)
[2023-06-10] MEDS: Enoxaparin 40 MG/0.4 ML Syringe SC (09:54)
[2023-06-10 14:44] VITALS: BP 136/67; PULSE 61; RESP 14; TEMP 36.9; O2SAT 96
[2023-06-11] MEDS: Enoxaparin 40 MG/0.4 ML Syringe SC (09:07)
[2023-06-11] MEDS: Losartan Potassium 50 MG Tablet PO (09:07)
[2023-06-11] MEDS: Mirabegron 50 MG TAB.ER.24H PO (09:07)
[2023-06-11] MEDS: Senna/Docusate Sodium 1 Tablet 2 TABLET PO (09:07)
[2023-06-11] MEDS: Pantoprazole Sodium 20 MG Tablet PO (09:08)
[2023-06-11] MEDS: Carvedilol 3.125 MG TABLET PO ×2 (09:08→20:43)
[2023-06-11] MEDS: amLODIPine 5 MG Tablet PO (09:08)
[2023-06-11] MEDS: Potassium Chloride Oral Tablet 10 MEQ 20 MEQ PO ×2 (09:08→17:59)
[2023-06-11] MEDS: DULoxetine Hcl 60 MG Capsule PO (09:09)
[2023-06-11] MEDS: Aspirin E.C. 81 MG Tablet PO (09:09)
[2023-06-11] MEDS: Furosemide 40 MG Tablet PO (09:09)
[2023-06-11 10:56] LABS: Alkaline Phosphatase 96 U/L (45-117)
[2023-06-11] MEDS: Remdesivir 200 MG in 0.9% Normal Saline (250mL Bag) 210 ML 250 MG IV (13:04)
[2023-06-11 16:00] VITALS: BP 134/81; PULSE 50; RESP 16; TEMP 36.7; O2SAT 96
[2023-06-12 05:59] LABS: Hematocrit 40.9 % (40-54); Hemoglobin 13.2 g/dL (13.0-16.5); Mean Corp Hgb Conc 32.3 g/dL (32-36); Mean Corpuscular Volume 99.3 fL (80-94); Mean Platelet Vol. 10.2 fl (6.2-12.0); Platelet Count 273 K/mm3 (150-450); RBC Distribution Width CV 12.8 % (11.6-14.6); RBC Distribution Width SD 46.8 fl (35.1-43.9); Red Blood Count 4.12 M/mm3 (4.6-6.2)
[2023-06-12 07:05] LABS: ALB/GLOB Ratio 0.9 RATIO (0.9-2.4); AST(SGOT) 16 U/L (15-37); Alanine Aminotransfer ALT/SGPT 25 U/L (16-61); Albumin, Serum 3.1 g/dL (3.2-5.0); Alkaline Phosphatase 91 U/L (45-117); Anion Gap 3 (5-15); BUN 13 mg/dL (7-18); BUN/Creat Ratio 12.5 RATIO (10-20); Calcium,Total 8.8 mg/dL (8.5-10.1); Chloride 107 mmol/L (98-107); Creatinine, Serum 1.04 mg/dL (0.70-1.30); EST Glomerular Filtration Rate 75 mL/min (>60); Est Glom Filt Rate - Afr Amer 91 mL/min (>60); Estimated Creatinine Clearance 66.09 ml/min; Globulin 3.6 g/dL (2.2-4.2); Glucose 89 mg/dL (74-106); Potassium 3.8 mmol/L (3.5-5.1); Protein, Total 6.7 g/dL (6.4-8.2); Sodium Level 140 mmol/L (136-145)
[2023-06-12] MEDS: Potassium Chloride Oral Tablet 10 MEQ 20 MEQ PO ×2 (08:27→17:06)
[2023-06-12] MEDS: Carvedilol 3.125 MG TABLET PO ×2 (08:27→20:01)
[2023-06-12] MEDS: Furosemide 40 MG Tablet PO (08:28)
[2023-06-12] MEDS: DULoxetine Hcl 60 MG Capsule PO (08:28)
[2023-06-12] MEDS: Aspirin E.C. 81 MG Tablet PO (08:28)
[2023-06-12] MEDS: Losartan Potassium 50 MG Tablet PO (08:28)
[2023-06-12] MEDS: Enoxaparin 40 MG/0.4 ML Syringe SC (08:28)
[2023-06-12] MEDS: Mirabegron 50 MG TAB.ER.24H PO (08:29)
[2023-06-12] MEDS: amLODIPine 5 MG Tablet PO (08:29)
[2023-06-12] MEDS: Pantoprazole Sodium 20 MG Tablet PO (08:30)
--- NOTE | 2023-06-12 11:03 | CASEMGMT ---
Social Work SW spoke with pt on phone to discuss discharge plan. Pt went on [facility] on Monday. Pt states pt chose not to get out of the car as he did not feel well and requested to return to TCU at that time. Pt then tested positive for Covid on Monday. Pt's states setting discharge date will be dependent on how pt is feeling this week with the new changes in medical stataus. Pt is also concerned that she will get Covid and will be unable to care for him if he returns home this week. SW to follow up with pt's at the end of the week to readdress discharge timeline. MICHEAL Rodriguez
[2023-06-12] MEDS: Remdesivir 100 MG in 0.9% Normal Saline (250mL Bag) 230 ML 250 MG IV (11:35)
--- NOTE | 2023-06-12 13:51 | MDS.RN ---
Information for the mds was obtained from review of the clinical record, interview of resident, staff, and direct observation of resident's care.
[2023-06-12 14:57] VITALS: BP 132/81; PULSE 89; RESP 18; TEMP 36.2; O2SAT 92
--- NOTE | 2023-06-12 16:27 | NURSING ---
Family given update additional staff members have covid.
[2023-06-12] MEDS: Senna/Docusate Sodium 1 Tablet 2 TABLET PO (20:01)
[2023-06-12 20:09] VITALS: O2SAT 96
[2023-06-13] MEDS: Enoxaparin 40 MG/0.4 ML Syringe SC (12:31)
[2023-06-13] MEDS: Senna/Docusate Sodium 1 Tablet 2 TABLET PO ×2 (12:32→21:36)
[2023-06-13] MEDS: DULoxetine Hcl 60 MG Capsule PO (12:32)
[2023-06-13] MEDS: Potassium Chloride Oral Tablet 10 MEQ 20 MEQ PO ×2 (12:32→16:27)
[2023-06-13] MEDS: Aspirin E.C. 81 MG Tablet PO (12:32)
[2023-06-13] MEDS: Furosemide 40 MG Tablet PO (12:33)
[2023-06-13] MEDS: Pantoprazole Sodium 20 MG Tablet PO (12:33)
[2023-06-13] MEDS: amLODIPine 5 MG Tablet PO (12:33)
[2023-06-13] MEDS: Mirabegron 50 MG TAB.ER.24H PO (12:33)
[2023-06-13] MEDS: Carvedilol 3.125 MG TABLET PO ×2 (12:34→21:36)
[2023-06-13] MEDS: Losartan Potassium 50 MG Tablet PO (12:34)
[2023-06-13] MEDS: 0.9% Saline Lock 10 ML Syringe IV (12:34)
[2023-06-13] MEDS: Remdesivir 100 MG in 0.9% Normal Saline (250mL Bag) 230 ML 250 MG IV (12:37)
--- NOTE | 2023-06-13 15:10 | CASEMGMT ---
Social Work BIMS () and PHQ-9 (07/21) completed for MDS assessment. Pt inquiring about DC plans. SW noted IDT wants to ensure pt remains medically stable and to continue with therapy progress. started having symptoms and will await COVID home test results. also needs to ensure she can care for pt at home. Pt agreed he is not ready to DC home this week, although anxious to get home. SW validated, provided support. SW received call from inquiring above. SW educated to conversation with pt and IDT. agreed to plan. Will continue. Mis Edge, GEOFF XIAOW
[2023-06-13 16:00] VITALS: BP 125/60; PULSE 59; RESP 16; TEMP 36; O2SAT 96
[2023-06-13 21:45] VITALS: PULSE 56; RESP 16
[2023-06-13] MEDS: Acetaminophen 500 MG Tablet 1000 MG PO (23:56)
[2023-06-13] MEDS: oxyCODONE 5 MG Tablet PO (23:56)
[2023-06-14 10:00] VITALS: RESP 18
[2023-06-14] MEDS: Furosemide 40 MG Tablet PO (11:33)
[2023-06-14] MEDS: Senna/Docusate Sodium 1 Tablet 2 TABLET PO ×2 (11:33→21:37)
[2023-06-14] MEDS: Aspirin E.C. 81 MG Tablet PO (11:33)
[2023-06-14] MEDS: Mirabegron 50 MG TAB.ER.24H PO (11:34)
[2023-06-14] MEDS: DULoxetine Hcl 60 MG Capsule PO (11:34)
[2023-06-14] MEDS: Losartan Potassium 50 MG Tablet PO (11:34)
[2023-06-14] MEDS: Potassium Chloride Oral Tablet 10 MEQ 20 MEQ PO ×2 (11:34→17:53)
[2023-06-14] MEDS: Enoxaparin 40 MG/0.4 ML Syringe SC (11:34)
[2023-06-14] MEDS: Pantoprazole Sodium 20 MG Tablet PO (11:34)
[2023-06-14] MEDS: amLODIPine 5 MG Tablet PO (11:34)
[2023-06-14] MEDS: Carvedilol 3.125 MG TABLET PO ×2 (11:34→21:37)
[2023-06-14] MEDS: Remdesivir 100 MG in 0.9% Normal Saline (250mL Bag) 230 ML 250 MG IV (11:34)
[2023-06-14] MEDS: Acetaminophen 500 MG Tablet 1000 MG PO (15:33)
--- NOTE | 2023-06-14 15:51 | NURSING ---
Notified family of positive new covid patients
[2023-06-14 16:00] VITALS: BP 128/73; PULSE 50; RESP 16; TEMP 36.6; O2SAT 96
[2023-06-14] MEDS: oxyCODONE 5 MG Tablet PO (21:37)
[2023-06-14 21:44] VITALS: BP 146/78; PULSE 52; RESP 16
[2023-06-15] MEDS: Levothyroxine 25 MCG TABLET PO (05:34)
[2023-06-15] MEDS: Magnesium Citrate 300 ML PO (05:48)
[2023-06-15 06:07] VITALS: PULSE 52; RESP 16; O2SAT 98
[2023-06-15 06:09] LABS: Absolute Lymphocyte Count 1.45 X10^3/uL (0.83-4.51); Absolute Neutrophil Count 3.4 X10^3/uL (2.0-7.7); Basophil# 0.04 X10^3/uL; Basophil% 0.7 % (0-1); Eosinophil# 0.15 X10^3/uL; Eosinophils% 2.6 % (0-5); Hematocrit 40.7 % (40-54); Hemoglobin 13.3 g/dL (13.0-16.5); Lymphocyte # 1.45 X10^3/ul (0.83-4.51); Mean Corp Hgb Conc 32.7 g/dL (32-36); Mean Corpuscular Volume 98.1 fL (80-94); Mean Platelet Vol. 9.8 fl (6.2-12.0); Monocyte# 0.71 X10^3/uL; Monocyte% 12.2 % (0-10); NRBC Flagged by Analyzer 0 % (0-5); Neutrophil # 3.43 X10^3/uL (2.7-7.7); Neutrophil % 59.2 % (47-70); Platelet Count 270 K/mm3 (150-450); RBC Distribution Width CV 12.7 % (11.6-14.6); RBC Distribution Width SD 45.6 fl (35.1-43.9); Red Blood Count 4.15 M/mm3 (4.6-6.2); White Blood Count 5.8 K/mm3 (4.4-11.0)
[2023-06-15 07:11] LABS: Anion Gap 3 (5-15); BUN 15 mg/dL (7-18); BUN/Creat Ratio 13.4 RATIO (10-20); Calcium,Total 8.9 mg/dL (8.5-10.1); Chloride 107 mmol/L (98-107); Creatinine, Serum 1.12 mg/dL (0.70-1.30); EST Glomerular Filtration Rate 69 mL/min (>60); Est Glom Filt Rate - Afr Amer 83 mL/min (>60); Estimated Creatinine Clearance 61.37 ml/min; Glucose 82 mg/dL (74-106); Sodium Level 140 mmol/L (136-145)
--- NOTE | 2023-06-15 07:20 | MDS.RN ---
Information for the [facility] MDS assessment was obtained from review of the clinical record, interview of resident, staff, and direct observation of resident's care.
[2023-06-15 07:50] VITALS: O2SAT 96
[2023-06-15] MEDS: Potassium Chloride Oral Tablet 10 MEQ 20 MEQ PO ×2 (08:34→16:53)
[2023-06-15] MEDS: Carvedilol 3.125 MG TABLET PO ×2 (08:34→21:39)
[2023-06-15] MEDS: Losartan Potassium 50 MG Tablet PO (08:34)
[2023-06-15] MEDS: Furosemide 40 MG Tablet PO (08:35)
[2023-06-15] MEDS: Mirabegron 50 MG TAB.ER.24H PO (08:35)
[2023-06-15] MEDS: Enoxaparin 40 MG/0.4 ML Syringe SC (08:35)
[2023-06-15] MEDS: Aspirin E.C. 81 MG Tablet PO (08:35)
[2023-06-15] MEDS: DULoxetine Hcl 60 MG Capsule PO (08:35)
[2023-06-15] MEDS: Senna/Docusate Sodium 1 Tablet 2 TABLET PO ×2 (08:36→21:41)
[2023-06-15] MEDS: Pantoprazole Sodium 20 MG Tablet PO (08:36)
[2023-06-15] MEDS: amLODIPine 5 MG Tablet PO (08:36)
[2023-06-15 10:00] VITALS: BP 121/68; PULSE 58; RESP 16; TEMP 37.5; O2SAT 94
[2023-06-15] MEDS: Remdesivir 100 MG in 0.9% Normal Saline (250mL Bag) 230 ML 250 MG IV (10:02)
[2023-06-15 16:00] VITALS: BP 135/73; PULSE 56; RESP 16; TEMP 37; O2SAT 95
[2023-06-15 21:00] VITALS: TEMP 36.7
[2023-06-15] MEDS: Mirtazapine 30 MG Tablet PO (21:40)
[2023-06-15] MEDS: Atorvastatin Calcium 40 MG Tablet PO (21:40)
[2023-06-15 21:45] VITALS: BP 140/78; PULSE 83
[2023-06-15] MEDS: oxyCODONE 5 MG Tablet PO (21:49)
[2023-06-16] MEDS: Levothyroxine 25 MCG TABLET PO (05:39)
[2023-06-16 06:52] VITALS: PULSE 54; RESP 14; O2SAT 98
[2023-06-16] MEDS: Senna/Docusate Sodium 1 Tablet 2 TABLET PO ×2 (08:19→20:15)
[2023-06-16] MEDS: amLODIPine 5 MG Tablet PO (08:20)
[2023-06-16] MEDS: Potassium Chloride Oral Tablet 10 MEQ 20 MEQ PO ×2 (08:20→17:00)
[2023-06-16] MEDS: Losartan Potassium 50 MG Tablet PO (08:20)
[2023-06-16] MEDS: Pantoprazole Sodium 20 MG Tablet PO (08:20)
[2023-06-16] MEDS: Mirabegron 50 MG TAB.ER.24H PO (08:20)
[2023-06-16] MEDS: Carvedilol 3.125 MG TABLET PO ×2 (08:20→20:17)
[2023-06-16] MEDS: Enoxaparin 40 MG/0.4 ML Syringe SC (08:20)
[2023-06-16] MEDS: DULoxetine Hcl 60 MG Capsule PO (08:21)
[2023-06-16] MEDS: Aspirin E.C. 81 MG Tablet PO (08:21)
[2023-06-16] MEDS: Furosemide 40 MG Tablet PO (08:21)
[2023-06-16 16:00] VITALS: BP 141/72; PULSE 51; RESP 17; TEMP 36.1; O2SAT 96
[2023-06-16] MEDS: Mirtazapine 30 MG Tablet PO (20:17)
[2023-06-16] MEDS: Atorvastatin Calcium 40 MG Tablet PO (20:17)
[2023-06-17] MEDS: Levothyroxine 25 MCG TABLET 50 MCG PO (06:12)
[2023-06-17] MEDS: Potassium Chloride Oral Tablet 10 MEQ 20 MEQ PO ×2 (08:17→17:30)
[2023-06-17] MEDS: Enoxaparin 40 MG/0.4 ML Syringe SC (08:17)
[2023-06-17] MEDS: Furosemide 40 MG Tablet PO (08:18)
[2023-06-17] MEDS: Losartan Potassium 50 MG Tablet PO (08:18)
[2023-06-17] MEDS: Aspirin E.C. 81 MG Tablet PO (08:18)
[2023-06-17] MEDS: Pantoprazole Sodium 20 MG Tablet PO (08:18)
[2023-06-17] MEDS: DULoxetine Hcl 60 MG Capsule PO (08:18)
[2023-06-17] MEDS: Senna/Docusate Sodium 1 Tablet 2 TABLET PO ×2 (08:18→20:29)
[2023-06-17] MEDS: amLODIPine 5 MG Tablet PO (08:18)
[2023-06-17] MEDS: Mirabegron 50 MG TAB.ER.24H PO (08:18)
[2023-06-17] MEDS: Carvedilol 3.125 MG TABLET PO ×2 (08:18→20:30)
[2023-06-17 08:28] VITALS: BP 130/70; PULSE 53
[2023-06-17 11:10] VITALS: RESP 18; TEMP 36.3; O2SAT 97
[2023-06-17 20:00] VITALS: O2SAT 96
[2023-06-17] MEDS: Mirtazapine 30 MG Tablet PO (20:29)
[2023-06-17] MEDS: Atorvastatin Calcium 40 MG Tablet PO (20:30)
[2023-06-18] MEDS: oxyCODONE 5 MG Tablet PO (02:38)
[2023-06-18] MEDS: Levothyroxine 25 MCG TABLET 50 MCG PO (06:52)
[2023-06-18] MEDS: DULoxetine Hcl 60 MG Capsule PO (08:34)
[2023-06-18] MEDS: Potassium Chloride Oral Tablet 10 MEQ 20 MEQ PO ×2 (08:34→16:54)
[2023-06-18] MEDS: Senna/Docusate Sodium 1 Tablet 2 TABLET PO ×2 (08:34→20:56)
[2023-06-18] MEDS: Carvedilol 3.125 MG TABLET PO ×2 (08:34→20:57)
[2023-06-18] MEDS: Aspirin E.C. 81 MG Tablet PO (08:35)
[2023-06-18] MEDS: Losartan Potassium 50 MG Tablet PO (08:35)
[2023-06-18] MEDS: Furosemide 40 MG Tablet PO (08:35)
[2023-06-18] MEDS: amLODIPine 5 MG Tablet PO (08:35)
[2023-06-18] MEDS: Pantoprazole Sodium 20 MG Tablet PO (08:35)
[2023-06-18] MEDS: Enoxaparin 40 MG/0.4 ML Syringe SC (08:36)
[2023-06-18] MEDS: Mirabegron 50 MG TAB.ER.24H PO (08:37)
[2023-06-18 15:13] VITALS: BP 141/78; PULSE 53; RESP 16; TEMP 36.8; O2SAT 97
[2023-06-18] MEDS: Mirtazapine 30 MG Tablet PO (20:56)
[2023-06-18] MEDS: Atorvastatin Calcium 40 MG Tablet PO (20:57)
[2023-06-19] MEDS: Levothyroxine 25 MCG TABLET PO (06:02)
[2023-06-19] MEDS: Potassium Chloride Oral Tablet 10 MEQ 20 MEQ PO ×2 (09:36→18:11)
[2023-06-19] MEDS: Losartan Potassium 50 MG Tablet PO (09:37)
[2023-06-19] MEDS: Enoxaparin 40 MG/0.4 ML Syringe SC (09:37)
[2023-06-19] MEDS: Furosemide 40 MG Tablet PO (09:37)
[2023-06-19] MEDS: Aspirin E.C. 81 MG Tablet PO (09:37)
[2023-06-19] MEDS: Mirabegron 50 MG TAB.ER.24H PO (09:37)
[2023-06-19] MEDS: Carvedilol 3.125 MG TABLET PO ×2 (09:37→20:02)
[2023-06-19] MEDS: DULoxetine Hcl 60 MG Capsule PO (09:37)
[2023-06-19] MEDS: Pantoprazole Sodium 20 MG Tablet PO (09:38)
[2023-06-19] MEDS: Senna/Docusate Sodium 1 Tablet 2 TABLET PO ×2 (09:38→20:00)
[2023-06-19] MEDS: amLODIPine 5 MG Tablet PO (09:38)
[2023-06-19 16:00] VITALS: BP 127/74; PULSE 55; RESP 17; TEMP 36.3; O2SAT 93
--- NOTE | 2023-06-19 18:10 | NURSING ---
[employer] answered pt call light. [employer] then alerted this nurse that pt was on the floor. Pt was on his knees w/ his arms propped up on the bed. Staff assisted pt to his recliner. Pt stated that he was trying to use his urinal and then he fell. Denies head strike. No open areas or bruises to skin noted. Pt c/o 10/10 pain to his R hip and RLE. Limited ROM to RLE. Unable to bare full weight to RLE. Floor in room dry and free of clutter. RM brightly lit. Pt wearing appropriate footwear. Pt continent of B&[employer].
[2023-06-19 18:20] VITALS: BP 160/59; PULSE 69; RESP 20; O2SAT 94
--- NOTE | 2023-06-19 18:26 | NURSING ---
Dr. Lizama updated on fall. N.O. entered.
--- NOTE | 2023-06-19 18:50 | RAD_ITS ---
EXAM: XR RIGHT KNEE, 1 OR 2 VIEWS CLINICAL INDICATION: Fall/pain TECHNIQUE: Frontal and/or lateral views of the right knee. COMPARISON: No relevant prior studies available. FINDINGS: BONES/JOINTS: There are surgical clips posterior to the knee. No acute fracture. No subluxation. Normal alignment. Preservation of the joint space. No sclerotic or destructive changes observed. SOFT TISSUES: Unremarkable. No soft tissue swelling or gas. No radiopaque foreign body. RAD/Knee 1 or 2 Views IMPRESSION: No acute findings in the right knee. Electronically Signed: Everardo Chaudhry MD at 19:42 EDT ,
--- NOTE | 2023-06-19 18:50 | RAD_ITS ---
EXAM: XR RIGHT HIP WITH PELVIS WHEN PERFORMED, 1 VIEW CLINICAL INDICATION: Fall/pain TECHNIQUE: Frontal view of the right hip with pelvis when performed. COMPARISON: No relevant prior studies available. FINDINGS: BONES/JOINTS: There is a subcapital fracture of the right femoral neck. No destructive or sclerotic lesions. Note that overlapping bowel shadows may however obscure fine detail. Sacroiliac joint is unremarkable. No widening of the pubic symphysis. The articular structures are unremarkable. SOFT TISSUES: Unremarkable. No soft tissue swelling or gas. RAD/HIP, UNI W/ Pelvis 2-3 Views IMPRESSION: Fracture of the right femoral neck. Electronically Signed: Everardo Chaudhry MD at 19:17 EDT ,
--- NOTE | 2023-06-19 18:50 | RAD_ITS ---
EXAM: XR LUMBOSACRAL SPINE, 2 OR 3 VIEWS CLINICAL INDICATION: fall/pain TECHNIQUE: Frontal and lateral views of the lumbar spine and sacrum. COMPARISON: No relevant prior studies available. FINDINGS: VERTEBRAE: Orthopedic cement in T12 and L1 from previous kyphoplasty. Preserved vertebral body height. No fracture. No spondylolisthesis. Preservation of the normal lumbar lordosis. No significant facet arthropathy. DISC SPACES: There is mild disc space narrowing at L4-5. GASTROINTESTINAL TRACT: Unremarkable as visualized. Included bowel gas pattern is non-obstructive. RAD/Lumbar Spine 2 or 3 Views IMPRESSION: 1. No acute osseous abnormalities. 2. Mild degenerative changes with disc space narrowing in the lower lumbar spine. Electronically Signed: Everardo Chaudhry MD at 19:41 EDT ,
--- NOTE | 2023-06-19 19:05 | NURSING ---
updated on fall.
[2023-06-19] MEDS: Mirtazapine 30 MG Tablet PO (20:00)
[2023-06-19] MEDS: Atorvastatin Calcium 40 MG Tablet PO (20:01)
[2023-06-19 20:13] VITALS: BP 157/84; PULSE 60; RESP 16; TEMP 36.6; O2SAT 97
[2023-06-19 20:15] VITALS: O2SAT 97
--- NOTE | 2023-06-19 20:35 | NURSING ---
Given hs meds. Vitals obtained recorded. Rt hip x-ray is reflected in report. Pt RLE is shortened and externally rotated. Facial grimacing and wincing noted. Pedal pulse +1-2. No edema noted to RLE. Skin pink, warm, and dry. Toes are mobile. Cap refill < 3 seconds. Sensation is intact. A&O x2-3, pt expresses difficulty answering questions related to time. Remains in isolation for COVID. Dr. Lizama notified via phone and new order received and read back to send to ED. Phone called placed to spouse, Renetta, to update. Answered questions to the best of this nurse's ability. Renetta notes she may come up to the hospital and questions where she should go. Informed Renetta to go to the ED as pt may be there. If/when he has been transferred to an acute unit, ED staff will direct her where to go. Phone call placed to ED and report given to JAYNE Pelaez. Secure backline text messages sent to the Director Of Pulmonary Unit and ROJAS Aragon, to update.
--- NOTE | 2023-06-19 21:04 | NURSING ---
JAYNE Pelaez, from ED calls and pt will go into room 1.
--- NOTE | 2023-06-20 07:40 | DS.PCM_ITS ---
Providers Date of Admission: 05/31/23 Primary Care Physician: MARIELENA Edwards Reason For Visit: DEBILITY ANS KYPHOPLASTY Diagnosis Discharge Diagnosis (1) Debility: Status: Acute Code(s): R53.81 - Other malaise (2) Fall: Status: Acute Code(s): W19.XXXA - Unspecified fall, initial encounter (3) Rib fracture: Status: Acute Code(s): S22.39XA - Fracture of one rib, unspecified side, initial encounter for closed fracture (4) Vertebral fracture: Status: Acute (5) CVA (cerebral vascular accident): Status: Inactive Code(s): I63.9 - Cerebral infarction, unspecified (6) Hyperlipidemia: Status: Inactive Code(s): E78.5 - Hyperlipidemia, unspecified Qualifiers: Hyperlipidemia type: unspecified Qualified Code(s): E78.5 - Hyperlipidemia, unspecified (7) Coronary artery disease: Status: Acute Code(s): I25.10 - Atherosclerotic heart disease of tangirnaq coronary artery without angina pectoris (8) Insomnia: Status: Acute Code(s): G47.00 - Insomnia, unspecified (9) GERD (gastroesophageal reflux disease): Status: Acute Code(s): K21.9 - Gastro-esophageal reflux disease without esophagitis (10) Hypokalemia: Status: Acute Code(s): E87.6 - Hypokalemia (11) Hypertension: Status: Chronic Code(s): I10 - Essential (primary) hypertension Qualifiers: Hypertension type: primary hypertension Qualified Code(s): I10 - Essential (primary) hypertension (12) Anxiety: Status: Acute Code(s): F41.9 - Anxiety disorder, unspecified (13) Atrial fibrillation: Status: Acute Code(s): I48.91 - Unspecified atrial fibrillation Qualifiers: Atrial fibrillation type: paroxysmal Qualified Code(s): I48.0 - Paroxysmal atrial fibrillation (14) Depression: Status: Acute Code(s): F32.A - Depression, unspecified (15) Hypothyroidism: Status: Inactive Code(s): E03.9 - Hypothyroidism, unspecified Qualifiers: Hypothyroidism type: acquired Qualified Code(s): E03.9 - Hypothyroidism, unspecified (16) Overactive bladder: Status: Acute Code(s): N32.81 - Overactive bladder (17) Alcohol abuse: Status: Acute Code(s): F10.10 - Alcohol abuse, uncomplicated (18) Congestive heart failure (CHF): Status: Acute Code(s): I50.9 - Heart failure, unspecified Plan 72 year old male with below past medical history hospitalized for rib fracture, vertebral fracture, complicated by alcohol abuse, admitted to for 3 hours daily rehabilitation, transferred to TCU with debility, here for rehabilitation, strengthening, prior to discharge home with . * Debility - PT/OT. * Pain - Tylenol 1000mg q8h prn pain (1-5), Oxycodone 5mg q8h prn pain (6-10). * Bowel - senna/colace 2 tablets bid, Magnesium citrate 300ml daily prn. * Adult immunization - Administer pneumonia vaccine, covid19 vaccine, flu vaccine as appropriate. * DVT prophylaxis - Lovenox 40mg sc daily. * Atrial fibrillation - Amiodarone 100mg daily. * Coronary artery disease - Losartan 50mg bid, Aspirin 81mg daily, NTG 0.4mg sl q5m prn. * Hyperlipidemia - Atorvastatin 40mg qhs. * Depression - Duloxetine 60mg daily, Mirtazapine 30mg qhs, stable chronic mcc use, GDR not recommended. * Edema - Furosemide 40mg daily. * Hypothyroidism - Levothyroxine 25mcg 5 days/week, 50mcg 2 days/week. * Overactive bladder - Myrbetriq 50mg daily. * GERD - Pantoprazole 20mg daily. * Hypokalemia - KCL 20meq bidcm. * Alcohol abuse - Recommend cessation. Medications at Discharge Home Medications atorvastatin 40 mg tablet 40 mg PO .HS cholesterol 04/05/18 nitroglycerin 0.4 mg sublingual tablet 0.4 mg sublingual Q5-15M PRN pain 04/05/18 mirtazapine 30 mg tablet (Remeron) 30 mg PO .HS SLEEP 09/26/18 omeprazole 20 mg tablet,delayed release 20 mg PO DAILY reflux 09/26/18 potassium chloride 10 mEq tablet,extended release 20 meq PO BID supplement 11/18/19 aspirin 81 mg tablet,delayed release 81 mg PO QDAY heart health 02/01/22 amiodarone 200 mg tablet 100 mg (1/2 x 200 mg) PO QDAY heart rate #90 tabs 11/14/22 duloxetine 60 mg capsule,delayed release 60 mg PO DAILY mental health 03/21/23 furosemide 40 mg tablet 40 mg PO DAILY diuretic 03/21/23 levothyroxine 25 mcg tablet 50 mcg PO .Sa/Reynolds thyroid 03/21/23 levothyroxine 25 mcg tablet (Euthyrox) 25 mcg PO .M-F thyroid 03/21/23 mirabegron 50 mg tablet,extended release 24 hr (Myrbetriq) 50 mg PO DAILY BLADDER 05/19/23 acetaminophen 500 mg capsule 1,000 mg PO Q8H PRN PRN Pain 1-10 05/22/23 metolazone 2.5 mg tablet 2.5 mg PO DAILY PRN FLUID RETENTION 05/22/23 oxycodone 5 mg tablet 5 mg PO Q8H PRN Pain Score 4-10 7 days #20 tabs 05/31/23 sennosides 8.6 mg-docusate sodium 50 mg tablet (Stool Softener-Stimulant Laxative) 2 tab PO BID Constipation #1 TAB 05/31/23 carvedilol 3.125 mg tablet 3.125 mg PO BID #180 tabs 06/07/23 losartan 50 mg tablet 50 mg PO DAILY BP #60 tabs 06/07/23 tamsulosin 0.4 mg capsule 0.4 mg PO DAILY 06/07/23 Hospital Course Operations None Procedures None Summary of Care Provided Minutes Spent on Discharge: 15 Hospital Course: 72 year old male with below past medical history hospitalized for rib fracture, vertebral fracture, complicated by alcohol abuse, admitted to for 3 hours daily rehabilitation, transferred to TCU with debility, here for rehabilitation, strengthening, prior to discharge home with . 06/19/2023 Resident fell in room, unable to bear weight right lower extremity, X- ray confirmed right hip fracture. Discharge to [facility] Emergency Department 06/19/2023 for evaluation, admission to hospital for right hip fracture repair. Weight / BMI Weight Weight: 92.487 kg Body Mass Index (BMI) 30.2 ABG / Lab / Microbiology Data 06/15/23 05:25 06/15/23 05:25 Microbiology: Microbiology 06/11/23 05:30 Nasal Secretion SARS-CoV-2 Antigen (Rapid) - Final SARS-CoV-2 (COVID 19) 06/09/23 05:10 Nasal Secretion SARS-CoV-2 Antigen (Rapid) - Final 06/06/23 22:20 Nasal Secretion SARS-CoV-2 Antigen (Rapid) - Final Radiography Diagnostic Testing: Radiology Impression Hip/Pelvis X-Ray 06/19/23 18:50 IMPRESSION: Fracture of the right femoral neck. Electronically Signed: Everardo Chaudhry MD at 19:17 EDT , Knee X-Ray 06/19/23 18:50 IMPRESSION: No acute findings in the right knee. Electronically Signed: Everardo Chaudhry MD at 19:42 EDT , Lumbar Spine X-Ray 06/19/23 18:50 IMPRESSION: 1. No acute osseous abnormalities. 2. Mild degenerative changes with disc space narrowing in the lower lumbar spine. Electronically Signed: Everardo Chaudhry MD at 19:41 EDT , D/C Instructions Discharge Diet: No restrictions Call your doctor if you observe: Fever of 101 or Higher, Inability to urinate, Inability to have a bowel movement, Shortness of breath, Dizziness, Fainting spells, Swelling in the ankles, Chest pain and Uncontrolled pain Additional Instructions: Discharge to [facility] Emergency Department 06/19/2023 for ev aluation, admission to hospital for right hip fracture repair. Please Follow Up With: Radha Houston MD Meaningful Use Info Meaningful Use Diagnoses (Choose all that apply): None applicable Discharge Plan Admission Admit Date/Time: 05/31/23 14:05 Primary Reason for Your Visit: Debility. Attending Provider: Good Lizama Chi Primary Care Provider: Kaylin Hui Instructions Additional Instructions / Restrictions: Discharge to [facility] Emergency Department 06/19/2023 for evaluation, admission to hospital for right hip fracture repair. Discharge Orders/Prescriptions Prescriptions: No Action nitroglycerin 0.4 mg tablet, sublingual 0.4 mg SUBLINGUAL Q5-15M PRN (Reason: pain) atorvastatin 40 mg tablet 40 mg PO .HS aspirin 81 mg tablet,delayed release (DR/EC) 81 mg PO QDAY Rx Instructions: 2 tabs daily omeprazole 20 mg tablet,delayed release (DR/EC) 20 mg PO DAILY mirtazapine [Remeron] 30 mg tablet 30 mg PO .HS potassium chloride 10 mEq tablet extended release 20 meq PO BID levothyroxine [Euthyrox] 25 mcg tablet 25 mcg PO .M-F levothyroxine 25 mcg tablet 50 mcg PO .Sa/Reynolds duloxetine 60 mg capsule,delayed release(DR/EC) 60 mg PO DAILY furosemide 40 mg tablet 40 mg PO DAILY tamsulosin 0.4 mg capsule 0.4 mg PO DAILY carvedilol 3.125 mg tablet 3.125 mg PO BID Qty: 180 3RF Rx Instructions: must administer with a meal/food losartan 50 mg tablet 50 mg PO DAILY Qty: 60 0RF Myrbetriq 50 mg tablet extended release 24 hr 50 mg PO DAILY Patient Comments: TAKE 1 TABLET BY MOUTH ONCE DAILY acetaminophen 500 mg capsule 1,000 mg PO Q8H PRN PRN (Reason: Pain 1-10) metolazone 2.5 mg tablet 2.5 mg PO DAILY PRN (Reason: FLUID RETENTION) oxycodone 5 mg Tablet 5 mg PO Q8H PRN (Reason: Pain Score 4-10) 7 Days Qty: 20 0RF sennosides-docusate sodium [Stool Softener-Stimulant Laxat] 8.6-50 mg Tablet 2 tab PO BID Qty: 1 0RF amiodarone 200 mg tablet 100 mg PO QDAY Qty: 90 3RF Referrals / Follow Up: Kaylin Hui PA [Primary Care Provider] - Disposition Disposition (needs filled in before D/C Order can be placed): [facility]
== END 2023-06-19 23:26 | disposition short-term general hospital (02) | DRG 561 ==
PROVIDERS: Admitting Provider Family Medicine Geriatric Medicine; PCP Physician Assistant; Visit Provider Family Medicine Geriatric Medicine
DX: S22.39XD Fracture of one rib, unspecified side, subsequent encounter for fracture with routine healing (principal); I11.0 Hypertensive heart disease with heart failure; I50.9 Heart failure, unspecified; I48.0 Paroxysmal atrial fibrillation; S72.001A Fracture of unspecified part of neck of right femur, initial encounter for closed fracture; F10.20 Alcohol dependence, uncomplicated; E03.9 Hypothyroidism, unspecified; F32.A Depression, unspecified; E78.5 Hyperlipidemia, unspecified; I25.10 Atherosclerotic heart disease of native coronary artery without angina pectoris; E87.6 Hypokalemia; F41.9 Anxiety disorder, unspecified; K21.9 Gastro-esophageal reflux disease without esophagitis; W17.89XD Other fall from one level to another, subsequent encounter; W19.XXXA Unspecified fall, initial encounter; Z79.890 Hormone replacement therapy; N32.81 Overactive bladder; G47.00 Insomnia, unspecified; Z87.891 Personal history of nicotine dependence; Z79.899 Other long term (current) drug therapy; Z95.810 Presence of automatic (implantable) cardiac defibrillator; S22.000D Wedge compression fracture of unspecified thoracic vertebra, subsequent encounter for fracture with routine healing; S32.000D Wedge compression fracture of unspecified lumbar vertebra, subsequent encounter for fracture with routine healing; Y92.230 Patient room in hospital as the place of occurrence of the external cause
CPT/HCPCS: 36415; 72050; 72100; 73030; 73502; 73521; 73560; 80048; 80053; 82306; 82962; 84075; 85025; 85027; 87811; 92507; 92523; 97110; 97116; 97129; 97130; 97162; 97166; 97530; 97535; 97802; J7050; A4216; J0248

== ENCOUNTER → 2023-06-08 | Outpatient (CLI) | payer MEDICARE, BC, SELFPAY ==
--- NOTE | 2023-06-08 12:07 | CT_ITS ---
STUDY: CT BRAIN WITHOUT CONTRAST REASON FOR EXAM: Male, 72 years old. FALL RADIATION DOSAGE (If Supplied By Facility): CTDIvol = ( 44.99 ) mGy, DLP = ( 846.73 ) mGycm TECHNIQUE: Transaxial CT imaging of the brain was performed without administration of intravenous contrast material. Individualized dose optimization techniques were used for this CT. COMPARISON: Comparison is made with prior MRI of the brain dated April 27, 2023. FINDINGS: Normal soft tissue structures. Normal calvarium. Focal decreased attenuation in the posterior aspect of the left occipital lobe. This may represent a subacute infarct. There is mild cerebral atrophy with widening of the extra-axial spaces and ventricular dilatation. There are areas of decreased attenuation within the white matter tracts of the supratentorial brain, consistent with microvascular disease changes. Focal encephalopathy in the left temporal lobe. Normal basal ganglia and thalami. Normal brainstem. Small old right cerebellar infarct. There is no intracranial hemorrhage. There are no findings of an acute ischemic infarction. Atherosclerotic calcification of the carotid arteries and vertebral arteries. Normal visualized paranasal sinuses. CT/Brain/Head without Contrast IMPRESSION: Chronic involutional changes of the brain. Decreased attenuation in the left occipital lobe. Subacute infarction be ruled out. Electronically Signed: Mic Corona MD at 12:36 EDT ,
== END | disposition home or self-care (01) ==
PROVIDERS: PCP Physician Assistant; Referring Provider Family Medicine Geriatric Medicine; Visit Provider Family Medicine Geriatric Medicine
DX: Z79.01 Long term (current) use of anticoagulants (principal); W18.00XA Striking against unspecified object with subsequent fall, initial encounter
CPT/HCPCS: 70450

== ENCOUNTER → 2023-06-09 | Outpatient (CLI) | payer MEDICARE, BC, SELFPAY ==
--- NOTE | 2023-06-09 10:30 | MRI_ITS ---
HISTORY: INCREASED R SIDED WEAKNESS. TECHNIQUE: Multiplanar and multisequence MR images of the brain were obtained without contrast. 306 images. COMPARISON: CT prior day. MRA 323. FINDINGS: BRAIN PARENCHYMA: Small chronic right cerebellar infarct. Small chronic right posterior parietal infarct. Small chronic bioccipital infarcts with signal similar to prior. Moderate chronic left parietal and mild left temporal infarcts. No abnormal focus of restricted diffusion. No acute intracranial hemorrhage identified. Multiple zones and small foci of increased T2 FLAIR signal again seen in the bilateral cerebral white matter. CSF SPACES: Moderate generalized volume loss with a cavum septum pellucidum present. No significant midline shift or other mass effect.No extra-axial fluid collection. VASCULAR SYSTEM: Major intracranial flow voids are maintained. PARANASAL SINUSES AND MASTOID AIR CELLS: No significant air fluid levels. ORBITS: Bilateral lens resections. MRI/Brain without Contrast IMPRESSION: No evidence for acute infarct. Chronic cerebral and cerebellar infarcts. Moderate chronic involutional and white matter changes. Electronically Signed: Radha Meyers MD at 13:32 EDT ,
[2023-06-09 12:10] VITALS: BP 130/62; PULSE 58; RESP 14; O2SAT 96
[2023-06-09 12:25] VITALS: BP 131/85; PULSE 59; RESP 16; O2SAT 97
[2023-06-09 12:40] VITALS: BP 139/70; PULSE 58; RESP 14; O2SAT 95
[2023-06-09 12:57] VITALS: BP 120/65; PULSE 59; RESP 16; O2SAT 92
== END | disposition home or self-care (01) ==
PROVIDERS: PCP Physician Assistant; Referring Provider Family Medicine Geriatric Medicine; Visit Provider Family Medicine Geriatric Medicine
DX: R53.1 Weakness (principal)
CPT/HCPCS: 70551

== ENCOUNTER 2023-06-19 21:17 | Inpatient (IN) | payer MEDICARE, BC, SELFPAY ==
[2023-06-19 21:17] VITALS: BP 150/77; PULSE 66; RESP 18; TEMP 36.6; O2SAT 90; BMI 32.2
[2023-06-19] MEDS: Morphine 4 MG/ML Syringe IV ×2 (22:06→23:10)
[2023-06-19] MEDS: Ondansetron 4 MG/2 ML Vial IV (22:06)
--- NOTE | 2023-06-19 22:10 | RAD_ITS ---
EXAM: XR CHEST, 1 VIEW CLINICAL INDICATION: Fall TECHNIQUE: Frontal view of the chest. COMPARISON: No relevant prior studies available. FINDINGS: LUNGS AND PLEURAL SPACES: Unremarkable. No consolidation or edema. No pneumothorax. No effusion. HEART: Unremarkable. Cardiac silhouette not enlarged. MEDIASTINUM: Central airways and mediastinal contour are unremarkable. BONES/JOINTS: Unremarkable. SOFT TISSUES: Unremarkable. TUBES, LINES AND DEVICES: Left-sided pacemaker is in position. UPPER ABDOMEN: There is elevation of the right hemidiaphragm. RAD/Chest 1 View (Portable) IMPRESSION: No acute findings in the chest. Electronically Signed: Everardo Chaudhry MD at 22:34 EDT ,
--- NOTE | 2023-06-19 22:17 | EDS_ITS ---
HPI History of Present Illness HPI Narrative: Patient presents with right hip pain that began after a fall today. Patient fell while he was a patient in the TCU today. Patient denies any head injury or loss of consciousness. Patient states that the pain is mainly over his right hip. Patient denies any paresthesias or weakness. Patient had outpatient x- rays done in the TCU which showed a right femoral neck fracture. Patient was then brought to the emergency department. Patient denies any other injuries. Chief Complaint: Lower Extremity Injury Informant: patient Occured/Mechanism Mechanism/Context: Yes fall Onset/Context/Timing Onset: Today Context: Sudden Onset Timing: Continuous Quality of Pain: Sharp Location: Right hip Worsened by: Movement Relieved by: Rest Associated Symptoms Associated Symptoms: Negative for Parasthesia, Weakness or Loss of Funtion [facility] Medical History Adult failure to thrive Alcoholism Anxiety and depression Aphonia Atherosclerotic heart disease of [place] coronary artery without angina pectoris Bifascicular block BPH (benign prostatic hyperplasia) Bradycardia Cardiac arrest with ventricular fibrillation Congestive heart failure (CHF) CVA (cerebral vascular accident) Dysphagia Dyspnea on exertion Essential hypertension Fatigue Former smoker GERD (gastroesophageal reflux disease) History of tracheal stenosis Hyperlipidemia Hypertension Hypothyroidism ICD (implantable cardioverter-defibrillator) in place Ischemic cardiomyopathy Low back pain Myocardial infarct Non-rheumatic mitral regurgitation Parkinsonism due to drugs Right bundle branch block Syncope Trigeminal neuralgia Home Medications atorvastatin 40 mg tablet 40 mg PO .HS cholesterol 04/05/18 [History Last Taken 05/30/23 19:55] nitroglycerin 0.4 mg sublingual tablet 0.4 mg sublingual Q5-15M PRN pain 04/05/18 [History Last Taken Unknown] mirtazapine 30 mg tablet (Remeron) 30 mg PO .HS SLEEP 09/26/18 [History Last Taken 05/30/23] omeprazole 20 mg tablet,delayed release 20 mg PO DAILY reflux 09/26/18 [History Last Taken 05/31/23 09:00] potassium chloride 10 mEq tablet,extended release 20 meq PO BID supplement 11/18/19 [History Last Taken 05/31/23 09:00] aspirin 81 mg tablet,delayed release 81 mg PO QDAY [facility] 02/01/22 [History Last Taken 05/31/23 09:00] amiodarone 200 mg tablet 100 mg (1/2 x 200 mg) PO QDAY heart rate #90 tabs 08/08/22 [Rx Last Taken 05/31/23 09:00] duloxetine 60 mg capsule,delayed release 60 mg PO DAILY mental health 03/21/23 [History Last Taken 05/31/23 09:00] furosemide 40 mg tablet 40 mg PO DAILY diuretic 03/21/23 [History Last Taken 05/31/23 09:00] levothyroxine 25 mcg tablet 50 mcg PO .Sa/Reynolds thyroid 03/21/23 [History Last Taken Unknown] levothyroxine 25 mcg tablet (Euthyrox) 25 mcg PO .M-F thyroid 03/21/23 [History Last Taken 05/31/23 06:00] mirabegron 50 mg tablet,extended release 24 hr (Myrbetriq) 50 mg PO DAILY BLADDER 05/19/23 [History Last Taken 05/31/23 09:00] acetaminophen 500 mg capsule 1,000 mg PO Q8H PRN PRN Pain 1-10 05/22/23 [History Last Taken 05/30/23] metolazone 2.5 mg tablet 2.5 mg PO DAILY PRN FLUID RETENTION 05/22/23 [History Last Taken Unknown] oxycodone 5 mg tablet 5 mg PO Q8H PRN Pain Score 4-10 7 days #20 tabs 05/31/23 [Rx Last Taken 05/31/23 09:00] sennosides 8.6 mg-docusate sodium 50 mg tablet (Stool Softener-Stimulant Laxative) 2 tab PO BID Constipation #1 TAB 05/31/23 [Rx Last Taken 05/31/23 09:00] carvedilol 3.125 mg tablet 3.125 mg PO BID #180 tabs 06/07/23 [Rx Last Taken Unknown] losartan 50 mg tablet 50 mg PO DAILY BP #60 tabs 06/07/23 [Rx Last Taken Unknown] tamsulosin 0.4 mg capsule 0.4 mg PO DAILY 06/07/23 [History Last Taken Unknown] Allergy/AdvReac Type Severity Reaction Status Date / Time lisinopril AdvReac cough Verified 06/07/23 14:19 Family History Mother Heart disease Cancer breast CAD (coronary artery disease) Breast cancer Father Colon cancer Sister Breast cancer Rheumatoid arthritis Surgical History Aortocoronary bypass status (~09/28/17) History of cardiac radiofrequency ablation History of implantable cardioverter-defibrillator (ICD) placement (~11/10/17) History of kyphoplasty History of resection and anastomosis of trachea (~04/2021) Hx of CABG Social History household members: spouse number of children: 2 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 Admits to 8-9 beers a day at the present time. substance use type: does not use caffeine: No ROS ROS ED Constitutional Constitutional ED: Denies chills or fever(s) Eyes Eyes: Denies blurry vision or change in vision ENT ENT ED: Denies rhinorrhea or sore throat Cardiovascular Cardiovascular: Denies chest pain or palpitations Respiratory/Chest Respiratory/Chest: Denies cough or dyspnea Gastrointestinal Gastrointestinal: Denies nausea or vomiting Genitourinary Genitourinary ED: Denies dysuria or hematuria Musculoskeletal Musculoskeletal: Denies back pain or neck pain Integumentary Denies abscess or rash Neurologic Neurologic: Denies headache(s) or weakness Allergic/Immunologic Allergic/Immunologic ED: Denies mouth swelling or urticaria EXAM Physical Exam Const Vital Signs: 06/19/23 21:17 Temperature 98 F Temperature Source Temporal Pulse Rate 66 Respiratory Rate 18 Blood Pressure 150/77 H Blood Pressure Mean 101 Pulse Ox 90 Oxygen Delivery Method Room Air Positive well nourished and well developed General Appearance ED: well developed and NAD HEENT Reports moist mucous membranes Resp normal respiratory effort and clear to auscultation bilaterally Cardio regular rate and regular rhythm GI non-tender and non-distended Palpation: soft Extremity Extremity Narrative: There is tenderness over the right hip. There is shortening and external rotation of the right lower extremity. There is no edema or ecchymosis noted. Pedal pulses are equal bilateral. Sensation was intact to light touch bilaterally in the lower extremities. Strength is 5/5 bilaterally in the lower extremities. Neuro oriented x3, CN's II-XII intact bilaterally, moves all extremities and no sensory deficits noted Sensorium / Orientation: alert Motor Exam: strength 5/5 throughout Psych mental status grossly normal MDM MDM MDM Narrative Medical decision making narrative: Patient had outpatient x-rays of his right hip, lumbar spine, and right knee. There is a right femoral neck fracture noted on the outpatient x-rays. Medical screening labs will be obtained. EKG will be obtained to assess for cardiac dysrhythmia and cardiac ischemia. CBC will be obtained to assess for anemia and leukocytosis. Basic metabolic profile will be obtained to assess for electrolyte abnormality and renal function. Urinalysis will be obtained to assess for urinary tract infection. PT with INR and PTT will be obtained to assess for coagulopathy. Chest x-ray will be obtained to assess for pneumonia. Radiography Chest X-Ray - ED: 1 View, Read by ED Physician, Read by Radiologist and No Acute Disease Diagnostic Testing: Clinical Impression(s) from Imaging Studies Chest X-Ray 06/19/23 22:10 IMPRESSION: No acute findings in the chest. Electronically Signed: Everardo Chaudhry MD at 22:34 EDT , Portable 1 view chest x-ray was obtained. On my independent interpretation, lung andersen are clear. There is normal cardiac silhouette. Bony thorax is normal. There is no acute process noted. Radiologist also interpreted the x- ray and agrees. EKG Initial EKG: Attestation: I personally reviewed and interpreted this EKG as follows: Interpretation: Sinus Rhythm (61), RBBB and Non-Specific ST Changes Comments: EKG was obtained. On my independent interpretation, it shows a normal sinus rhythm with a rate of 61. There are occasional PACs noted. WI interval was slightly prolonged at 202 ms. QRS interval was prolonged at 160 ms. QTc interval was 491 ms. There is left axis deviation at -77. There are no other acute ST or T wave changes noted. Prior EKG tracings: available for review Prior: Unchanged (05/19/2023) Management Discussion w/another healthcare provider: Hospitalist and Media Relations Specialist Treatment and Re-Evaluation Narrative: Patient was given morphine and Zofran. Case was discussed with Dr. Dorman from orthopedics. He recommended admission to the hospitalist. He will see the patient in the hospital and likely do surgery tomorrow. Case was discussed with the hospitalist. He will admit the patient to his service. Patient understood and was agreeable with the plan. All questions were answered. Discharge Plan Dx/Rx/DC Orders Clinical Impression: Fall, Closed fracture of neck of right femur Disposition Disposition: Acute Care Hospital [facility]
[2023-06-19 22:40] VITALS: BP 110/74; PULSE 62; RESP 16; TEMP 36.4; O2SAT 96
--- NOTE | 2023-06-19 22:41 | PCM.HP.STD ---
HPI - General General Date of Admission: 06/19/23 Date of Service: 06/19/23 Chief Complaint: Fall HPI Narrative AMANDA HERNANDEZ, is a 72 M with a significant history of ischemic cardiomyopathy; ICD placement; atrial fibrillation; hypertension; debility and adult failure to thrive who was undergoing rehabilitation at the transitional care unit of [facility] and was brought to emergency department because of a fall with imaging showing a femoral neck fracture of the right hip. Patient reports unbearable pain at the right hip. Of note patient was admitted to transitional care unit for rehabilitation after kyphoplasty. [facility] Medical History Adult failure to thrive Alcoholism Anxiety and depression Aphonia Atherosclerotic heart disease of [place] coronary artery without angina pectoris Bifascicular block BPH (benign prostatic hyperplasia) Bradycardia Cardiac arrest with ventricular fibrillation Congestive heart failure (CHF) CVA (cerebral vascular accident) Dysphagia Dyspnea on exertion Essential hypertension Fatigue Former smoker GERD (gastroesophageal reflux disease) History of tracheal stenosis Hyperlipidemia Hypertension Hypothyroidism ICD (implantable cardioverter-defibrillator) in place Ischemic cardiomyopathy Low back pain Myocardial infarct Non-rheumatic mitral regurgitation Parkinsonism due to drugs Right bundle branch block Syncope Trigeminal neuralgia Home Medications atorvastatin 40 mg tablet 40 mg PO .HS cholesterol 04/05/18 [History Last Taken 05/30/23 19:55] nitroglycerin 0.4 mg sublingual tablet 0.4 mg sublingual Q5-15M PRN pain 04/05/18 [History Last Taken Unknown] mirtazapine 30 mg tablet (Remeron) 30 mg PO .HS SLEEP 09/26/18 [History Last Taken 05/30/23] omeprazole 20 mg tablet,delayed release 20 mg PO DAILY reflux 09/26/18 [History Last Taken 05/31/23 09:00] potassium chloride 10 mEq tablet,extended release 20 meq PO BID supplement 11/18/19 [History Last Taken 05/31/23 09:00] aspirin 81 mg tablet,delayed release 81 mg PO QDAY heart health 02/01/22 [History Last Taken 05/31/23 09:00] amiodarone 200 mg tablet 100 mg (1/2 x 200 mg) PO QDAY heart rate #90 tabs 08/08/22 [Rx Last Taken 05/31/23 09:00] duloxetine 60 mg capsule,delayed release 60 mg PO DAILY mental health 03/21/23 [History Last Taken 05/31/23 09:00] furosemide 40 mg tablet 40 mg PO DAILY diuretic 03/21/23 [History Last Taken 05/31/23 09:00] levothyroxine 25 mcg tablet 50 mcg PO .Sa/Reynolds thyroid 03/21/23 [History Last Taken Unknown] levothyroxine 25 mcg tablet (Euthyrox) 25 mcg PO .M-F thyroid 03/21/23 [History Last Taken 05/31/23 06:00] mirabegron 50 mg tablet,extended release 24 hr (Myrbetriq) 50 mg PO DAILY BLADDER 05/19/23 [History Last Taken 05/31/23 09:00] acetaminophen 500 mg capsule 1,000 mg PO Q8H PRN PRN Pain 1-10 05/22/23 [History Last Taken 05/30/23] metolazone 2.5 mg tablet 2.5 mg PO DAILY PRN FLUID RETENTION 05/22/23 [History Last Taken Unknown] oxycodone 5 mg tablet 5 mg PO Q8H PRN Pain Score 4-10 7 days #20 tabs 05/31/23 [Rx Last Taken 05/31/23 09:00] sennosides 8.6 mg-docusate sodium 50 mg tablet (Stool Softener-Stimulant Laxative) 2 tab PO BID Constipation #1 TAB 05/31/23 [Rx Last Taken 05/31/23 09:00] carvedilol 3.125 mg tablet 3.125 mg PO BID #180 tabs 06/07/23 [Rx Last Taken Unknown] losartan 50 mg tablet 50 mg PO DAILY BP #60 tabs 06/07/23 [Rx Last Taken Unknown] tamsulosin 0.4 mg capsule 0.4 mg PO DAILY 06/07/23 [History Last Taken Unknown] Allergy/AdvReac Type Severity Reaction Status Date / Time lisinopril AdvReac cough Verified 06/07/23 14:19 Family History Mother Heart disease Cancer breast CAD (coronary artery disease) Breast cancer Father Colon cancer Sister Breast cancer Rheumatoid arthritis Surgical History Aortocoronary bypass status (~09/28/17) History of cardiac radiofrequency ablation History of implantable cardioverter-defibrillator (ICD) placement (~11/10/17) History of kyphoplasty History of resection and anastomosis of trachea (~04/2021) Hx of CABG Social History household members: spouse number of children: 2 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 Admits to 8-9 beers a day at the present time. substance use type: does not use caffeine: No ROS ROS Narrative Pertinent positives and pertinent negatives as noted in HPI. All other systems were reviewed and are negative Vital Signs Vital Signs Vital Signs: 06/19/23 21:17 Temperature 98 F Temperature Source Temporal Pulse Rate 66 Respiratory Rate 18 Blood Pressure 150/77 H Blood Pressure Mean 101 Pulse Ox 90 Oxygen Delivery Method Room Air Weight Weight: 102 kg Body Mass Index (BMI) 32.2 Physical Exam Narrative Physical exam: General: Well-nourished, well-developed. Head: Normocephalic, atraumatic, no tenderness Eyes: Vision is grossly intact. EOMI ENT, no trauma, moist mucous membranes, no rhinorrhea Neck: Nontender, No thyromegaly. CVS: Regular rate and rhythm. S1-S2 present. No murmur, gallop or rub. Respiratory : clear to auscultation bilaterally, chest wall nontender Abdomen: Soft, nontender, nondistended, normal bowel sounds, no masses : Deferred Back: Nontender, no CVA tenderness. Extremities: Limited flexion of left lower extremity. Nontender left hip. Range of motion of right extremity not tested. Right lower extremity is externally rotated. Skin: Normal color, no trauma, abrasions Neuro: Alert, oriented, cranial nerves II through XII grossly intact. Some aphasia Psychiatry: Normal mood. Normal affect. Not depressed. Not anxious. Results Lab / Micro Data 06/19/23 22:34 06/19/23 22:34 Radiology Impression Chest X-Ray 06/19/23 22:10 IMPRESSION: No acute findings in the chest. Electronically Signed: Everardo Chaudhry MD at 22:34 EDT , Assessment & Plan Assessment/Plan (1) Closed fracture of neck of right femur: QUALIFIERS: Encounter type: initial encounter Qualified Code(s): S72.001A - Fracture of unspecified part of neck of right femur, initial encounter for closed fracture (2) Fall: QUALIFIERS: Encounter type: initial encounter Qualified Code(s): W19.XXXA - Unspecified fall, initial encounter (3) Ischemic cardiomyopathy: (4) Hypertension: QUALIFIERS: Hypertension type: primary hypertension Qualified Code(s): I10 - Essential (primary) hypertension (5) Atrial fibrillation: QUALIFIERS: Atrial fibrillation type: paroxysmal Qualified Code(s): I48.0 - Paroxysmal atrial fibrillation PLAN: Plan Fall with closed fracture of neck of right femur Radiologist impression of hip and pelvis x-ray: Fracture of the right femoral neck. Pelvis x-ray was independently interpreted by hospitalist: Agrees with the interpretation. Emergent department doctor discussed the case with Dr. Dorman. Inpatient consult for orthopedic surgery. Morphine IV and oxycodone as needed ordered. Tylenol as needed ordered. Bowel protocol and antiemetics IV ordered. Clear liquid after midnight and n.p.o. 2 hours before surgery. With history of cardiomyopathy and on diuretics would not order any IV fluids while n.p.o. Check vitamin D level. Preoperative EKG unremarkable. PT/INR is 15/1.2. ACS NSQIP surgical risk calculator with below the average risk for cardiac complication. However patient is at increased risk for readmission; return to nursing or rehab facility. Also he is at above average risk for pneumonia. Will admit patient to [facility] on telemetry Leukocytosis Noted to have white count of 12,600 with neutrophilic predominance and with lymphopenia. Likely reactive. Trend. Positive COVID-19 infection Not hypoxic Ischemic cardiomyopathy Stable Guideline-directed medical therapy continued. History of atrial fibrillation Stable Not on anticoagulation. Aspirin continued. Amiodarone continued. Admit to [facility] telemetry. Hypertension Blood pressure is not within goal Home blood pressure medication continued. Trend blood pressure and adjust blood pressure medications. DVT prophylaxis SCD ordered. Time spent in the patient's overall evaluation,decision-making process, review of diagnostic data, adjustment of management, discussion with other providers, nursing nursing and ancillary staff involved in patient's care documentation, 65 minutes. Charges/Coding Visit Charges Inpatient E&M: 96723 Init Hosp L3
[2023-06-19 22:45] LABS: Absolute Neutrophil Count 10.9 X10^3/uL (2.0-7.7); Basophil# 0.02 X10^3/uL; Basophil% 0.2 % (0-1); Eosinophil# 0.14 X10^3/uL; Eosinophils% 1.1 % (0-5); Hematocrit 42.7 % (40-54); Hemoglobin 13.7 g/dL (13.0-16.5); Lymphocyte % 6.4 % (19-41); Mean Corp Hgb Conc 32.1 g/dL (32-36); Mean Corpuscular Hgb 31.9 pg (27.0-32.0); Mean Corpuscular Volume 99.3 fL (80-94); Mean Platelet Vol. 10.7 fl (6.2-12.0); Monocyte# 0.62 X10^3/uL; Monocyte% 4.9 % (0-10); NRBC Flagged by Analyzer 0 % (0-5); Neutrophil # 10.91 X10^3/uL (2.7-7.7); Neutrophil % 86.6 % (47-70); Platelet Count 348 K/mm3 (150-450); RBC Distribution Width CV 13.1 % (11.6-14.6); RBC Distribution Width SD 47.7 fl (35.1-43.9); White Blood Count 12.6 K/mm3 (4.4-11.0)
[2023-06-19 22:58] LABS: International Normalized Ratio 1.2
[2023-06-19 23:00] LABS: Partial Thromboplast Time 30.6 Seconds (24.1-36.2)
[2023-06-19 23:10] LABS: Anion Gap 3 (5-15); BUN 20 mg/dL (7-18); BUN/Creat Ratio 16.4 RATIO (10-20); Calcium,Total 8.7 mg/dL (8.5-10.1); Chloride 106 mmol/L (98-107); Creatinine, Serum 1.22 mg/dL (0.70-1.30); EST Glomerular Filtration Rate 62 mL/min (>60); Est Glom Filt Rate - Afr Amer 75 mL/min (>60); Estimated Creatinine Clearance 58.17 ml/min; Glucose 97 mg/dL (74-106); Potassium 4.1 mmol/L (3.5-5.1); Sodium Level 137 mmol/L (136-145)
[2023-06-19 23:17] VITALS: PULSE 70; RESP 16; O2SAT 97
[2023-06-19 23:25] LABS: Bacteria 0 SEEN /hpf (None Seen); Mucous, Urine 0 SEEN /hpf (<or=2+); Red Blood Cells-Urine 0 SEEN /hpf (0-5); Squamous Epithelial Cells - UA 0 SEEN /hpf (0-5); White Blood Cells 0 SEEN /hpf (0-5)
[2023-06-19 23:33] LABS: Color, Urine Yellow (Yellow); Glucose, Dipstick Normal (Normal); Ketone-Dipstick Negative (Negative); Leukocyte Esterase-Dipstick 25 /ul (Negative); Nitrite-Dipstick Negative (Negative); Occult Blood-Urine Negative /ul (Negative); Protein-Dipstick 15 mg/dl (Negative); Urine Bilirubin Dipstick Negative (Negative); Urine Clarity Sl. Cloudy (Clear); Urine Urobilinogen Normal (Normal)
[2023-06-20] VITALS (11 sets, daily range): BP systolic 116–184; BP diastolic 53–76; PULSE 58–71; RESP 16–18; TEMP 36.7–37.2; O2SAT 90–98; BMI 30.4
[2023-06-20] MEDS: 0.9% Saline Lock 10 ML Syringe IV ×2 (01:25→11:20)
[2023-06-20] MEDS: Morphine 4 MG/ML Syringe IV ×2 (01:25→11:19)
[2023-06-20] MEDS: Ondansetron 4 MG/2 ML Vial IV (01:25)
[2023-06-20] MEDS: Levothyroxine 25 MCG TABLET PO (04:41)
[2023-06-20] MEDS: oxyCODONE 5 MG Tablet PO (04:49)
[2023-06-20] MEDS: Acetaminophen 500 MG Tablet 1000 MG PO (04:49)
[2023-06-20 06:36] LABS: Absolute Lymphocyte Count 0.98 X10^3/uL (0.83-4.51); Absolute Neutrophil Count 9.9 X10^3/uL (2.0-7.7); Basophil# 0.03 X10^3/uL; Basophil% 0.3 % (0-1); Eosinophil# 0.15 X10^3/uL; Eosinophils% 1.3 % (0-5); Hematocrit 41.4 % (40-54); Hemoglobin 13.6 g/dL (13.0-16.5); Lymphocyte # 0.98 X10^3/ul (0.83-4.51); Lymphocyte % 8.2 % (19-41); Mean Corp Hgb Conc 32.9 g/dL (32-36); Mean Corpuscular Hgb 32.4 pg (27.0-32.0); Mean Corpuscular Volume 98.6 fL (80-94); Mean Platelet Vol. 9.5 fl (6.2-12.0); Monocyte# 0.85 X10^3/uL; Monocyte% 7.1 % (0-10); NRBC Flagged by Analyzer 0 % (0-5); Neutrophil # 9.93 X10^3/uL (2.7-7.7); Neutrophil % 82.7 % (47-70); Platelet Count 278 K/mm3 (150-450); RBC Distribution Width SD 46.5 fl (35.1-43.9)
[2023-06-20 07:02] LABS: Anion Gap 2 (5-15); BUN 18 mg/dL (7-18); BUN/Creat Ratio 17.1 RATIO (10-20); Chloride 107 mmol/L (98-107); Creatinine, Serum 1.05 mg/dL (0.70-1.30); EST Glomerular Filtration Rate 74 mL/min (>60); Est Glom Filt Rate - Afr Amer 90 mL/min (>60); Estimated Creatinine Clearance 63.33 ml/min; Glucose 102 mg/dL (74-106); Potassium 4.4 mmol/L (3.5-5.1); Sodium Level 140 mmol/L (136-145)
--- NOTE | 2023-06-20 07:13 | CON.PCM.OR_ITS ---
HPI Consult Data Date of Consult: 06/20/23 HPI Narrative Reason for Consultation: Right femoral neck fracture HPI Narrative: AMANDA HERNANDEZ, is a 72 M who presents to [facility] [place] emergency department after a fall in the TCU. Patient was in TCU for rehab following recent kyphoplasty. Patient has history of ischemic cardiomyopathy, cardiac arrest, ICD placement, atrial fibrillation, hypertension and history of CVA. He denies any antecedent right hip or groin pain. Patient denies use of a cane or walker for ambulation. Patient states he lost his balance and fell onto his right side. As he was unable to bear weight noted immediate pain in his right hip. Patient was admitted under the service to hospitalist. Patient recently tested positive for COVID-19. He denies any constitutional symptoms at this time including fevers, chills, nausea vomiting, chest pain or shortness of breath. Patient reports residual weakness on his right side since his stroke. [facility] Medical History Adult failure to thrive Alcoholism Anxiety and depression Aphonia Atherosclerotic heart disease of [place] coronary artery without angina pectoris Bifascicular block BPH (benign prostatic hyperplasia) Bradycardia Cardiac arrest with ventricular fibrillation Congestive heart failure (CHF) CVA (cerebral vascular accident) Dysphagia Dyspnea on exertion Essential hypertension Fatigue Former smoker GERD (gastroesophageal reflux disease) History of tracheal stenosis Hyperlipidemia Hypertension Hypothyroidism ICD (implantable cardioverter-defibrillator) in place Ischemic cardiomyopathy Low back pain Myocardial infarct Non-rheumatic mitral regurgitation Parkinsonism due to drugs Right bundle branch block Syncope Trigeminal neuralgia Home Medications atorvastatin 40 mg tablet 40 mg PO .HS cholesterol 04/05/18 [History Last Taken 05/30/23 19:55] nitroglycerin 0.4 mg sublingual tablet 0.4 mg sublingual Q5-15M PRN pain 04/05/18 [History Last Taken Unknown] mirtazapine 30 mg tablet (Remeron) 30 mg PO .HS SLEEP 09/26/18 [History Last Taken 05/30/23] omeprazole 20 mg tablet,delayed release 20 mg PO DAILY reflux 09/26/18 [History Last Taken 05/31/23 09:00] potassium chloride 10 mEq tablet,extended release 20 meq PO BID supplement 11/18/19 [History Last Taken 05/31/23 09:00] aspirin 81 mg tablet,[facility] [History Last Taken 05/31/23 09:00] amiodarone 200 mg tablet 100 mg (1/2 x 200 mg) PO QDAY heart rate #90 tabs 08/08/22 [Rx Last Taken 05/31/23 09:00] duloxetine 60 mg capsule,delayed release 60 mg PO DAILY mental health 03/21/23 [History Last Taken 05/31/23 09:00] furosemide 40 mg tablet 40 mg PO DAILY diuretic 03/21/23 [History Last Taken 05/31/23 09:00] levothyroxine 25 mcg tablet 50 mcg PO .Sa/Reynolds thyroid 03/21/23 [History Last Taken Unknown] levothyroxine 25 mcg tablet (Euthyrox) 25 mcg PO .M-F thyroid 03/21/23 [History Last Taken 05/31/23 06:00] mirabegron 50 mg tablet,extended release 24 hr (Myrbetriq) 50 mg PO DAILY BLADDER 05/19/23 [History Last Taken 05/31/23 09:00] acetaminophen 500 mg capsule 1,000 mg PO Q8H PRN PRN Pain 1-10 05/22/23 [History Last Taken 05/30/23] metolazone 2.5 mg tablet 2.5 mg PO DAILY PRN FLUID RETENTION 05/22/23 [History Last Taken Unknown] oxycodone 5 mg tablet 5 mg PO Q8H PRN Pain Score 4-10 7 days #20 tabs 05/31/23 [Rx Last Taken 05/31/23 09:00] sennosides 8.6 mg-docusate sodium 50 mg tablet (Stool Softener-Stimulant Laxative) 2 tab PO BID Constipation #1 TAB 05/31/23 [Rx Last Taken 05/31/23 09:00] carvedilol 3.125 mg tablet 3.125 mg PO BID #180 tabs 06/07/23 [Rx Last Taken Unknown] losartan 50 mg tablet 50 mg PO DAILY BP #60 tabs 06/07/23 [Rx Last Taken Unknown] tamsulosin 0.4 mg capsule 0.4 mg PO DAILY 06/07/23 [History Last Taken Unknown] Allergy/AdvReac Type Severity Reaction Status Date / Time lisinopril AdvReac cough Verified 06/07/23 14:19 Family History Mother Heart disease Cancer breast CAD (coronary artery disease) Breast cancer Father Colon cancer Sister Breast cancer Rheumatoid arthritis Surgical History Aortocoronary bypass status (~09/28/17) History of cardiac radiofrequency ablation History of implantable cardioverter-defibrillator (ICD) placement (~11/10/17) History of kyphoplasty History of resection and anastomosis of trachea (~04/2021) Hx of CABG Social History household members: spouse number of children: 2 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 Admits to 8-9 beers a day at the present time. substance use type: does not use caffeine: No ROS ROS Narrative 12 point review systems obtained, negative unless otherwise noted HPI. Vital Signs Vital Signs Vital Signs: 06/19/23 21:17 06/19/23 22:40 06/19/23 23:17 Temperature 98 F 97.6 F L Temperature Source Temporal Temporal Pulse Rate 66 62 70 Respiratory Rate 18 16 16 Blood Pressure 150/77 H 110/74 Blood Pressure Mean 101 86 Blood Pressure Source Blood Pressure Position Blood Pressure Location Pulse Ox 90 96 97 Oxygen Delivery Method Room Air Room Air Room Air Oxygen Flow Rate (L/min) 06/20/23 01:12 06/20/23 04:43 Temperature 98.5 F 98.4 F Temperature Source Oral Oral Pulse Rate 64 60 Respiratory Rate 18 18 Blood Pressure 184/76 H 153/73 H Blood Pressure Mean 112 99 Blood Pressure Source Manual Monitor Blood Pressure Position Semi-Fowlers Supine Blood Pressure Location Left Arm Right Arm Pulse Ox 94 93 Oxygen Delivery Method Nasal Cannula Nasal Cannula Oxygen Flow Rate (L/min) 2 4 Weight Weight: 199 lb 15.348 oz Body Mass Index (BMI) 30.4 Physical Exam Narrative General -A&Ox3, NAD, appears stated age. Vital signs stable, afebrile. Respiratory -normal work of breathing, no intercostal retractions. CV -pulses regular, brisk capillary refill ?4 limbs. Abdomen-soft, nontender, nondistended. No guarding, rigidity, rebound tenderness. Musculoskeletal/neurologic -full range of motion nontender throughout bilateral upper extremities, left lower extremity with full sensation and strength in all dermatomes and myotomes. No midline cervical tenderness. Right lower extremity-no obvious deformity. Pain with logroll of the right lower extremity. Nontender throughout the right knee femoral shaft, tibial shaft and right foot/ankle. Brisk capillary refill. Sensation intact light touch L3-S1 dermatomes. DF, PF, EHL intact. DP, PT 2+. Pelvis is stable, nontender. Skin is intact without lacerations, abrasions. No ecchymosis noted. Lab / Micro Data 06/20/23 06:20 06/20/23 06:20 Labs: Laboratory Results - last 24 hr 06/19/23 22:34: WBC 12.6 H, RBC 4.30 L, Hgb 13.7, Hct 42.7, MCV 99.3 H, MCH 31.9, MCHC 32.1, RDW Std Deviation 47.7 H, RDW Coeff of [place] 13.1, Plt Count 348, MPV 10.7, Immature Gran % (Auto) 0.800, Neut % (Auto) 86.6 H, Lymph % (Auto) 6.4 L, [place] % (Auto) 4.9, Eos % (Auto) 1.1, Baso % (Auto) 0.2, Absolute Neuts (auto) 10.9 H, Absolute Lymphs (auto) 0.80 L, Nucleated RBC % 0, PT 15.0 H, INR 1.2, APTT 30.6, Sodium 137, Potassium 4.1, Chloride 106, Carbon Dioxide 28.0, Anion Gap 3 L, BUN 20 H, Creatinine 1.22, Estim Creat Clear Calc 58.17, Est GFR (MDRD) Af Amer 75, Est GFR (MDRD) Non-Af 62, BUN/Creatinine Ratio 16.4, Glucose 97, Calcium 8.7 06/19/23 23:20: Urine Color Yellow, Urine Clarity Sl. Cloudy, Urine pH 5.0, Ur Specific [place] 1.020, Urine Protein 15 H, Urine Glucose (UA) Normal, Urine Ketones Negative, Urine Occult Blood Negative, Urine Nitrite Negative, Urine Bilirubin Negative, Urine Urobilinogen Normal, Ur Leukocyte Esterase 25 H, Urine RBC 0 SEEN, Urine WBC 0 SEEN, Ur Squamous Epith Cells 0 SEEN, Urine Bacteria 0 SEEN, Urine Mucus 0 SEEN 06/20/23 06:20: WBC 12.0 H, RBC 4.20 L, Hgb 13.6, Hct 41.4, MCV 98.6 H, MCH 32.4 H, MCHC 32.9, RDW Std Deviation 46.5 H, RDW Coeff of [place] 13.0, Plt Count 278, MPV 9.5, Immature Gran % (Auto) 0.400, Neut % (Auto) 82.7 H, Lymph % (Auto) 8.2 L, [place] % (Auto) 7.1, Eos % (Auto) 1.3, Baso % (Auto) 0.3, Absolute Neuts (auto) 9.9 H, Absolute Lymphs (auto) 0.98, Nucleated RBC % 0, Sodium 140, Potassium 4.4, Chloride 107, Carbon Dioxide 31.0, Anion Gap 2 L, BUN 18, Creatinine 1.05, Estim Creat Clear Calc 63.33, Est GFR (MDRD) Af Amer 90, Est GFR (MDRD) Non-Af 74, BUN/Creatinine Ratio 17.1, Glucose 102, Calcium 9.0 Radiology Impression Chest X-Ray 06/19/23 22:10 IMPRESSION: No acute findings in the chest. Electronically Signed: Everardo Chaudhry MD at 22:34 EDT , Assessment & Plan Assessment/Plan (1) Closed fracture of neck of right femur: QUALIFIERS: Encounter type: initial encounter Qualified Code(s): S72.001A - Fracture of unspecified part of neck of right femur, initial encounter for closed fracture PLAN: Patient sustained a right femoral neck fracture. -Closed, neurovascularly intact -Isolated injury -Recommending surgical intervention in the form of right hip hemiarthroplasty. I explained hemiarthroplasty is indicated due to the patient's history of CVA, alcoholism and no antecedent right hip or groin pain as well as no arthritic changes on x-ray. -I discussed the procedure-its risks, benefits and alternative. Risks include but are not limited to bleeding, infection, loss of life or limb, risk of anes thesia, persistent pain or disability, need for additional surgery, instability, failure of orthopedic fixation, neurovascular injury, DVT or PE. Patient expressed understanding these risks and wished proceed with surgery. -Maintenance IV fluids, clear liquid diet after midnight n.p.o. at 2 hours prior to surgery -Type and screen -2 g Ancef on-call to the OR -Bedrest, heel protectors -Plan to proceed with surgery later today when OR becomes available Thank you for this consultation.
[2023-06-20 07:15] LABS: Thyroid Stim Hormone (TSH) 3.49 uIU/mL (0.358-3.74)
--- NOTE | 2023-06-20 07:59 | PN.HOSP_ITS ---
Reason for Visit Reason for Visit: Diagnoses Essential (primary) hypertension (06/19/23) Ischemic cardiomyopathy (06/19/23) Paroxysmal atrial fibrillation (06/19/23) Fracture of unspecified part of neck of right femur, initial encounter for closed fracture (06/19/23) Unspecified fall, initial encounter (06/19/23) Subjective Subjective Pain in hip. No shortness of breath, but currently on oxygen. Normally, only uses oxygen at night. Objective Data Objective Data Vital Signs: Vital Signs Temp Pulse Resp BP Pulse Ox O2 Del Method O2 Flow Rate 36.9 C 60 18 153/73 H 93 Nasal Cannula 4 06/20/23 04:43 06/20/23 04:43 06/20/23 04:43 06/20/23 04:43 06/20/23 04:43 06/20/23 04:43 06/20/23 04:43 Oxygen Flow Rate (L/min) 4 Oxygen Delivery Method Nasal Cannula Weight: 90.7 kg Body Mass Index (BMI) 30.4 Intake & Output: Intake and Output for Last 24 Hours 06/18/23 06/19/23 06/20/23 23:59 23:59 23:59 Intake Total 240 / 240 Balance 240 / 240 Lab / Micro Data 06/20/23 06:20 06/20/23 06:20 Labs: Laboratory Results - last 24 hr 06/19/23 22:34: WBC 12.6 H, RBC 4.30 L, Hgb 13.7, Hct 42.7, MCV 99.3 H, MCH 31.9, MCHC 32.1, RDW Std Deviation 47.7 H, RDW Coeff of Elpidio 13.1, Plt Count 348, MPV 10.7, Immature Gran % (Auto) 0.800, Neut % (Auto) 86.6 H, Lymph % (Auto) 6.4 L, [place] % (Auto) 4.9, Eos % (Auto) 1.1, Baso % (Auto) 0.2, Absolute Neuts (auto) 10.9 H, Absolute Lymphs (auto) 0.80 L, Nucleated RBC % 0, PT 15.0 H, INR 1.2, APTT 30.6, Sodium 137, Potassium 4.1, Chloride 106, Carbon Dioxide 28.0, Anion Gap 3 L, BUN 20 H, Creatinine 1.22, Estim Creat Clear Calc 58.17, Est GFR (MDRD) Af Amer 75, Est GFR (MDRD) Non-Af 62, BUN/Creatinine Ratio 16.4, Glucose 97, Calcium 8.7 06/19/23 23:20: Urine Color Yellow, Urine Clarity Sl. Cloudy, Urine pH 5.0, Ur Specific [place] 1.020, Urine Protein 15 H, Urine Glucose (UA) Normal, Urine Ketones Negative, Urine Occult Blood Negative, Urine Nitrite Negative, Urine Bilirubin Negative, Urine Urobilinogen Normal, Ur Leukocyte Esterase 25 H, Urine RBC 0 SEEN, Urine WBC 0 SEEN, Ur Squamous Epith Cells 0 SEEN, Urine Bacteria 0 SEEN, Urine Mucus 0 SEEN 06/20/23 06:20: WBC 12.0 H, RBC 4.20 L, Hgb 13.6, Hct 41.4, MCV 98.6 H, MCH 32.4 H, MCHC 32.9, RDW Std Deviation 46.5 H, RDW Coeff of Elpidio 13.0, Plt Count 278, MPV 9.5, Immature Gran % (Auto) 0.400, Neut % (Auto) 82.7 H, Lymph % (Auto) 8.2 L, [place] % (Auto) 7.1, Eos % (Auto) 1.3, Baso % (Auto) 0.3, Absolute Neuts (auto) 9.9 H, Absolute Lymphs (auto) 0.98, Nucleated RBC % 0, Sodium 140, Potassium 4.4, Chloride 107, Carbon Dioxide 31.0, Anion Gap 2 L, BUN 18, Creatinine 1.05, Estim Creat Clear Calc 63.33, Est GFR (MDRD) Af Amer 90, Est GFR (MDRD) Non-Af 74, BUN/Creatinine Ratio 17.1, Glucose 102, Calcium 9.0, TSH 3.49, Blood Type O NEGATIVE, Antibody Screen NEGATIVE Radiography Diagnostic Testing: Radiology Impression Chest X-Ray 06/19/23 22:10 IMPRESSION: No acute findings in the chest. Electronically Signed: Everardo Chaudhry MD at 22:34 EDT , Physical Exam Const alert and no apparent distress HEENT head/scalp atraumatic and moist oral mucous membranes Resp normal respiratory effort, no retractions, no use of accessory muscles and clear to auscultation bilaterally Cardio regular rate, regular rhythm, S1 normal heart sound and S2 normal heart sound Neuro Sensorium / Orientation: awake and alert Assessment & Plan Assessment/Plan (1) Closed fracture of neck of right femur: QUALIFIERS: Encounter type: initial encounter Qualified Code(s): S72.001A - Fracture of unspecified part of neck of right femur, initial encounter for closed fracture PLAN: Fall with closed fracture of neck of right femur Bowel protocol and antiemetics IV ordered. Clear liquid after midnight and n.p.o. 2 hours before surgery. With history of cardiomyopathy and on diuretics would not order any IV fluids while n.p.o. Preoperative EKG unremarkable. PT/INR is 15/1.2. ACS NSQIP surgical risk calculator with below the average risk for cardiac complication. However patient is at increased risk for readmission; return to nursing or rehab facility. Also he is at above average risk for pneumonia. Plan for hemiarthoplasy later today. 25 OH D level 65.1 from 06/08, repeat level pending, but I am not suspecting significant change. (2) COVID-19: PLAN: Positive test on 06/11. Patient was ill 2 days prior. Onset of COVID 19 was the 15th despite negative testing on that day. Patient has completed 10-days of isolation. (3) Leukocytosis: QUALIFIERS: Leukocytosis type: unspecified Qualified Code(s): D72.829 - Elevated white blood cell count, unspecified PLAN: Suspect reactive from hip fracture Monitor PLAN: Plan Chronic conditions: * Ischemic cardiomyopathy: EF 40% from 04/07/2023. Compensated. Continue losartan, carvedilol, furosemide, PRN metolazone. Cautious use of IVF. s/p AICD. 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 * HTN: continue home meds * hypothyroidism: continue levothyroxine * HLP: continue statin DVT prophylaxis SCD ordered. Charges/Coding Visit Charges Inpatient E&M: 35731 Subs Hosp L2
[2023-06-20 11:04] LABS: Vitamin D,25 Hydroxy 58.8 ng/mL
[2023-06-20] MEDS: Mirabegron 50 MG TAB.ER.24H PO (11:08)
[2023-06-20] MEDS: Furosemide 40 MG Tablet PO (11:08)
[2023-06-20] MEDS: Carvedilol 3.125 MG TABLET PO ×2 (11:08→23:57)
[2023-06-20] MEDS: DULoxetine Hcl 60 MG Capsule PO (11:09)
[2023-06-20] MEDS: Losartan Potassium 50 MG Tablet PO (11:09)
[2023-06-20] MEDS: Amiodarone 200 MG Tablet 100 MG PO (11:09)
[2023-06-20] MEDS: Tamsulosin HCl 0.4 MG Capsule PO (11:09)
--- NOTE | 2023-06-20 14:00 | FEM_PTH ---
PATIENT: AMANDA HERNANDEZ LOC: MS3 U#:[id number] AGE/SX: 72/M ROOM: [facility] RE06/19/[address]: Dr. Shankar Billings DO : 1950 BED: 1 DIS: 06/22/2023 SPEC #: [id number] RECD: 06/21/23 13:42 STATUS: SHAYY PÉREZ #: [id number] DEMARCO: 06/20/23 14:[address]: Ramesh Dorman DEPT: SURGICAL PATHOLOGY RECD BY: Lucero Hong ENTERED: 06/22/23 07:33 SP TYPE: FEM HEAD OTHR DR: DO Dr. Jd Stephen MD Melissa Palmer, PA Tissues: Femoral region, NOS Procedures: Decalcification bone/plaque Surgery Specimen Level IV HEADER OPERATION: Left hip hemiarthroplasty PRE-OP DIAGNOSIS: Closed fracture of neck of right femur TISSUE SUBMITTED: Left femoral head MICROSCOPIC DIAGNOSIS Left femoral head, fracture: Organizing fracture callus. AM:obdulia 06/26/2023 MICROSCOPIC DESCRIPTION Slides are reviewed. GROSS DESCRIPTION Received is one container labeled with the patient's name and designated left femoral head. The specimen consists of a temple femoral head measuring 5.0 x 4.5 x 4.5 cm. The articular surface is smooth. Resection margin is irregular and hemorrhagic. Also present in the specimen container are multiple detached pieces of soft tissue and bone measuring in aggregate 5.0 x 5.5 x 1.5 cm. Gang Bore Operator sections are submitted in three cassettes as follows: 1 - detached pieces of soft tissue and bone, 2 & 3 - femoral head after decalcification. / MAXINE:obdulia 06/22/2023 TC:5 [facility]: [id number], [id number]
[2023-06-20] MEDS: Lactated Ringers 1,000 ML 15 ML IV ×2 (15:43→22:40)
[2023-06-20] MEDS: Cefazolin 2 GM in 0.9% Normal Saline (100mL Bag) 100 ML IV (20:19)
[2023-06-20] MEDS: Bupivacaine Mpf 0.5% 30 ML VIAL (21:30)
--- NOTE | 2023-06-20 22:20 | RAD_ITS ---
STUDY: X-RAY - PELVIS AND RIGHT HIP REASON FOR EXAM: Male, 72 years old. Post Op -- AP both hips /lateral of op hip PACU TECHNIQUE: 2 views of the pelvis and hip. COMPARISON: June 19, 2023 FINDINGS: There is a normal bowel gas pattern. There is postoperative change in the right lateral soft tissues. There are skin jacqueline. Normal bilateral iliac wings, sacroiliac joints and visualized sacrum. Normal bilateral superior and inferior pubic rami. Normal pubic symphysis. Normal bilateral ischial tuberosities. There is right hip replacement. Alignment is near-anatomic. RAD/Hip Min 2 Views (Portable) IMPRESSION: Right hip replacement. Electronically Signed: Tariq Coffey MD at 22:46 EDT ,
[2023-06-20] MEDS: Senna/Docusate Sodium 1 Tablet 2 TABLET PO (23:57)
[2023-06-20] MEDS: Mirtazapine 30 MG Tablet PO (23:57)
[2023-06-21] VITALS (15 sets, daily range): BP systolic 106–152; BP diastolic 43–74; PULSE 62–65; RESP 18; TEMP 36.4–37.5; O2SAT 88–96
[2023-06-21] MEDS: Atorvastatin Calcium 40 MG Tablet PO ×2 (00:01→20:19)
[2023-06-21] MEDS: 0.9% Normal Saline (250mL Bag) 250 ML 15 ML IV (00:04)
--- NOTE | 2023-06-21 00:22 | PCM.OPRPT ---
Report of Operation Date of Procedure: 06/20/23 Description of Surgical Findings:: Preoperative diagnosis: Right displaced femoral neck fracture Postoperative diagnosis: Right displaced femoral neck fracture Procedure: Right hip hemiarthroplasty Surgeon: Ramesh Dorman DO Solution Director: FADY Loja Anesthesia: General endotracheal Anesthesiologist: Dr. Loredo Complications: None Drains: None Estimated blood loss: 200 cc Urinary output: None recorded IV fluids: 600 cc crystalloid Specimens: Right femoral head Surgical implants: [place] Accolade two 127 degree neck angle hip stem size # 6, Unitrax neck adjustment sleeve -4, Unitrax endoprosthesis head component outer diameter 51 mm Indications: This is an 72-year-old male who sustained a ground-level fall in the transitional care unit at [facility] where he was recovering from recent kyphoplasty with associated leg weakness. He sustained a right displaced femoral neck fracture. This was an isolated injury.. I was consulted to see the patient for surgical recommendations. I recommended a right hip hemiarthroplasty due to the pattern and displacement as well as patient's history of CVA and lack of osteoarthritic changes. I reviewed the procedure with the patient, its risk, benefits, alternatives. Risks included but were not limited to bleeding, infection, loss of life or limb, risk of anesthesia, neurovascular injury, persistent pain, instability, need for additional surgery, failure of orthopedic hardware, loosening, osteolysis, need for assistive devices long-term. Patient expressed understanding wish to proceed with surgery. Description of procedure: Prior to the procedure, patient was brought to the preoperative holding area where patient was identified by name, medical record number and date of . I confirmed the side, site, operation to be performed with the patient. Informed consent was confirmed, All questions were answered to patient satisfaction. The operative extremity was marked. He was also seen by anesthesia staff and anesthesia consent obtained.At time of the operative procedure, pt was brought to the operative suite. General anesthesia was induced on the hospital bed and endotracheal tube placed. After adequate anesthesia, patient was transferred to a standard operating table. She was then positioned in the lateral decubitus position with the right side up and held in position by Zhihu hip positioner system. All bony prominences were well-padded. A axillary roll was placed under the patient's left axilla. Peroneal nerve was free with a blanket on the nonoperative extremity. Leg lengths were reproduced from patient's position when he was supine. The right lower extremity was then prepped and draped in normal, sterile orthopedic fashion. We performed a timeout with all parties in attendance in agreement with the side, site, and operation to be performed. No concerns were voiced and would like to proceed. I first marked an incision along the lateral aspect of the hip centered over the greater trochanteric tip. In standard posterior approach, a curvilinear incision was made above the trochanter. An approximately 15 cm incision was made. Skin was sharply incised with a 10 blade scalpel carried deep through subcutaneous layers to the level of the IT band. Gelpi retractors were then placed. A Topete was used to expose the fascia xavi. Bovie cautery was then used for hemostasis and then to open the fascia. This was opened in line with the incision. A Charnley retractor was then placed. Sciatic nerve was free. The trochanteric bursa was then debrided. This identified the short external rotators after internal rotation of the hip. The fracture site was easily identified at this point. Short external rotators were taken down and tagged for later repair. Hip capsule was also tagged for repair with a stay suture. We then freshened the neck cut with a sagittal saw. Anterior and posterior acetabular retractors were placed to gain access to the femoral head. A corkscrew was used to remove the head. Any remaining debris was debrided from the acetabulum. We then placed the femoral head on the back table for measurement. We did use trial heads and selected a final size 51 with good suction fit. Box chisel was then utilized to gain access to the femoral canal. Canal finder was placed. Sequential broaches were used and press-fit manner. A final size 6 achieved excellent vertical and rotational stability. We then trialed with a standard and subsequently high offset stem. I offset did achieve excellent stability and reproduction of abductor tension. Leg lengths appeared appropriate with a -4 neck length. Trials were then removed. We copiously irrigated the wound with normal saline solution and irrisept solution. A size 6 stem was then impacted with excellent fixation. Final head was then impacted over the Doran taper neck. Final reduction was performed. The hip was brought through range of motion and was stable. A posterior capsular repair was performed with #2 Ethibond suture via bone tunnels. Fascia was closed watertight with #1 strata fix. Deeper fascial layers were closed with 0 Vicryl suture in interrupted fashion. Subcutaneous layers were reapproximated with 2-0 Vicryl suture and skin reapproximated with skin jacqueline. A silver dressing was applied. Patient tolerated procedure well without complication. He was positioned back in the supine position on her hospital bed and subsequently extubated safely. He was transferred to PACU in stable condition. Blankets were placed between the patient's legs. Post Operative Plan: Weightbearing: Weightbearing as tolerated right lower extremity, posterior hip precautions. Blankets between legs first 24 hours Antibiotics: Ancef 2 g every 8 hours x 3 doses DVT Prophylaxis: Lovenox x28 days, SCDs, KIMBERLY hose, early mobilization Brunner: None Dressing: Maintain silver dressing x7 days X-Rays: PACU x-rays were reviewed demonstrated well-positioned right hip hemiarthroplasty implant. Follow-up 2-week x-rays in the office. Follow-up: 2 weeks in my office for staple removal
[2023-06-21] MEDS: oxyCODONE 5 MG Tablet PO ×2 (02:25→08:20)
[2023-06-21] MEDS: Cefazolin 2 GM in 0.9% Normal Saline (100mL Bag) 100 ML IV ×3 (04:07→20:19)
[2023-06-21] MEDS: Levothyroxine 25 MCG TABLET PO (06:18)
[2023-06-21 06:26] LABS: Absolute Lymphocyte Count 0.58 X10^3/uL (0.83-4.51); Absolute Neutrophil Count 11.6 X10^3/uL (2.0-7.7); Basophil# 0.04 X10^3/uL; Basophil% 0.3 % (0-1); Eosinophil# 0.17 X10^3/uL; Eosinophils% 1.3 % (0-5); Hematocrit 39.5 % (40-54); Hemoglobin 12.2 g/dL (13.0-16.5); Lymphocyte # 0.58 X10^3/ul (0.83-4.51); Lymphocyte % 4.3 % (19-41); Mean Corp Hgb Conc 30.9 g/dL (32-36); Mean Corpuscular Hgb 31.6 pg (27.0-32.0); Mean Corpuscular Volume 102.3 fL (80-94); Mean Platelet Vol. 9.6 fl (6.2-12.0); Monocyte# 1.15 X10^3/uL; Monocyte% 8.5 % (0-10); NRBC Flagged by Analyzer 0 % (0-5); Neutrophil # 11.58 X10^3/uL (2.7-7.7); POSITIVE DIFFERENTIAL YES; Platelet Count 285 K/mm3 (150-450); RBC Distribution Width CV 13.3 % (11.6-14.6); RBC Distribution Width SD 50.2 fl (35.1-43.9); Red Blood Count 3.86 M/mm3 (4.6-6.2); White Blood Count 13.6 K/mm3 (4.4-11.0)
[2023-06-21 06:27] LABS: Differential Indicated SCAN CRITERIA MET
[2023-06-21 06:47] LABS: Differential Comment SCANNED
[2023-06-21 06:49] LABS: Anion Gap 5 (5-15); BUN 18 mg/dL (7-18); BUN/Creat Ratio 14.1 RATIO (10-20); Calcium,Total 8.8 mg/dL (8.5-10.1); Chloride 104 mmol/L (98-107); Creatinine, Serum 1.28 mg/dL (0.70-1.30); EST Glomerular Filtration Rate 59 mL/min (>60); Est Glom Filt Rate - Afr Amer 71 mL/min (>60); Estimated Creatinine Clearance 51.95 ml/min; Glucose 107 mg/dL (74-106); Potassium 4.6 mmol/L (3.5-5.1); Sodium Level 139 mmol/L (136-145)
[2023-06-21] MEDS: Morphine 4 MG/ML Syringe IV (07:15)
[2023-06-21] MEDS: 0.9% Saline Lock 10 ML Syringe IV (07:16)
--- NOTE | 2023-06-21 07:52 | PN.ORTHO_ITS ---
Subjective Subjective Patient seen and examined. Denies any new complaints. Denies any fevers, chills, nausea vomiting, chest pain or shortness of breath. Patient required straight catheterization this morning with 400 cc of urine. Objective Data Objective Data Vital Signs: Vital Signs Temp Pulse Resp BP Pulse Ox O2 Del Method O2 Flow Rate 99.5 F H 62 18 152/71 H 95 Nasal Cannula 3 06/21/23 07:12 06/21/23 07:12 06/21/23 07:12 06/21/23 07:12 06/21/23 07:12 06/21/23 07:12 06/21/23 07:12 Oxygen Flow Rate (L/min) 3 Oxygen Delivery Method Nasal Cannula Weight: 199 lb 15.348 oz Body Mass Index (BMI) 30.4 Intake & Output: Intake and Output for Last 24 Hours 06/19/23 06/20/23 06/21/23 23:59 23:59 23:59 Intake Total 1500 / 1500 139 / 139 Output Total 400 / 400 400 / 400 Balance 1100 / 1100 -261 / -261 Lab / Micro Data 06/21/23 06:10 06/21/23 06:10 Labs: Laboratory Results - last 24 hr 06/20/23 06:20: Vitamin D 25-Hydroxy 58.8 06/21/23 06:10: WBC 13.6 H, RBC 3.86 L, Hgb 12.2 L, Hct 39.5 L, MCV 102.3 H, MCH 31.6, MCHC 30.9 L D, RDW Std Deviation 50.2 H, RDW Coeff of Elpidio 13.3, Plt Count 285, MPV 9.6, Immature Gran % (Auto) 0.600, Neut % (Auto) 85.0 H, Lymph % (Auto) 4.3 L, Piute % (Auto) 8.5, Eos % (Auto) 1.3, Baso % (Auto) 0.3, Absolute Neuts (auto) 11.6 H, Absolute Lymphs (auto) 0.58 L, Nucleated RBC % 0, Differential Comment SCANNED, Sodium 139, Potassium 4.6, Chloride 104, Carbon Dioxide 30.0, Anion Gap 5, BUN 18, Creatinine 1.28, Estim Creat Clear Calc 51.95, Est GFR (MDRD) Af Amer 71, Est GFR (MDRD) Non-Af 59 L, BUN/Creatinine Ratio 14.1, Glucose 107 H, Calcium 8.8 Radiography Diagnostic Testing: Radiology Impression Hip X-Ray 06/20/23 22:20 IMPRESSION: Right hip replacement. Electronically Signed: Tariq Coffey MD at 22:46 EDT Reading Location ID and State: [address] [place] [address] , Service support , Physical Exam Narrative General - A&Ox3, NAD. VSS/AF Right lower extremity -incisional dressing C/D/I. SILT Sural, Saphenous, SPN, DPN, Tibial N. distributions. DP, PT 2+. BCR. DF, PF, EHL /. No calf TTP. Assessment & Plan Assessment/Plan (1) Closed fracture of neck of right femur: QUALIFIERS: Encounter type: initial encounter Qualified Code(s): S72.001A - Fracture of unspecified part of neck of right femur, initial encounter for closed fracture PLAN: POD#1 s/p right hip hemiarthroplasty - Pain control - Medicine following for medical management - PT/OT-weightbearing as tolerated, posterior precautions - DVT PPX -Lovenox, SCDs, KIMBERLY hose, early mobilization -Encourage incentive spirometer use - Case management - D/C planning
[2023-06-21] MEDS: Aspirin E.C. 81 MG Tablet 162 MG PO (08:20)
[2023-06-21] MEDS: Senna/Docusate Sodium 1 Tablet 2 TABLET PO ×2 (08:21→20:18)
[2023-06-21] MEDS: Furosemide 40 MG Tablet PO (08:21)
[2023-06-21] MEDS: Pantoprazole Sodium 20 MG Tablet PO (08:21)
[2023-06-21] MEDS: Calcium Carbonate 500 MG Tablet PO ×2 (08:21→16:33)
[2023-06-21] MEDS: Amiodarone 200 MG Tablet 100 MG PO (08:21)
[2023-06-21] MEDS: Losartan Potassium 50 MG Tablet PO (08:21)
[2023-06-21] MEDS: Carvedilol 3.125 MG TABLET PO (08:21)
[2023-06-21] MEDS: Tamsulosin HCl 0.4 MG Capsule PO (08:22)
[2023-06-21] MEDS: DULoxetine Hcl 60 MG Capsule PO (08:22)
[2023-06-21] MEDS: Potassium Chloride Oral Tablet 10 MEQ 20 MEQ PO ×3 (08:22→20:19)
[2023-06-21] MEDS: Mirabegron 50 MG TAB.ER.24H PO (08:22)
--- NOTE | 2023-06-21 09:29 | PN.HOSP_ITS ---
Subjective Subjective Groggy after oxycodone and hypoxic and placed on oxygen. Objective Data Objective Data Vital Signs: Vital Signs Temp Pulse Resp BP Pulse Ox O2 Del Method O2 Flow Rate 36.7 C 62 18 136/69 H 94 Nasal Cannula 3 06/21/23 08:40 06/21/23 08:40 06/21/23 08:40 06/21/23 08:40 06/21/23 08:40 06/21/23 08:40 06/21/23 08:40 Oxygen Flow Rate (L/min) 3 Oxygen Delivery Method Nasal Cannula Weight: 90.7 kg Body Mass Index (BMI) 30.4 Intake & Output: Intake and Output for Last 24 Hours 06/19/23 06/20/23 06/21/23 23:59 23:59 23:59 Intake Total 1500 / 1500 139 / 139 Output Total 400 / 400 400 / 400 Balance 1100 / 1100 -261 / -261 Lab / Micro Data 06/21/23 06:10 06/21/23 06:10 Labs: Laboratory Results - last 24 hr 06/20/23 06:20: Vitamin D 25-Hydroxy 58.8 06/21/23 06:10: WBC 13.6 H, RBC 3.86 L, Hgb 12.2 L, Hct 39.5 L, MCV 102.3 H, MCH 31.6, MCHC 30.9 L D, RDW Std Deviation 50.2 H, RDW Coeff of Elpidio 13.3, Plt Count 285, MPV 9.6, Immature Gran % (Auto) 0.600, Neut % (Auto) 85.0 H, Lymph % (Auto) 4.3 L, Piatt % (Auto) 8.5, Eos % (Auto) 1.3, Baso % (Auto) 0.3, Absolute Neuts (auto) 11.6 H, Absolute Lymphs (auto) 0.58 L, Nucleated RBC % 0, Differential Comment SCANNED, Sodium 139, Potassium 4.6, Chloride 104, Carbon Dioxide 30.0, Anion Gap 5, BUN 18, Creatinine 1.28, Estim Creat Clear Calc 51.95, Est GFR (MDRD) Af Amer 71, Est GFR (MDRD) Non-Af 59 L, BUN/Creatinine Ratio 14.1, Glucose 107 H, Calcium 8.8 Radiography Diagnostic Testing: Radiology Impression Hip X-Ray 06/20/23 22:20 IMPRESSION: Right hip replacement. Electronically Signed: Tariq Coffey MD at 22:46 EDT Reading Location ID and State: [facility] / [place] , Service support , Physical Exam Const no apparent distress Constitutional Narrative: groggy HEENT head/scalp atraumatic Resp normal respiratory effort, no retractions, no use of accessory muscles and clear to auscultation bilaterally Cardio regular rate, regular rhythm, S1 normal heart sound and S2 normal heart sound GI normal to inspection, nondistended, normoactive bowel sounds and soft to palpation Psych affect normal Assessment & Plan Assessment/Plan (1) Closed fracture of neck of right femur: QUALIFIERS: Encounter type: initial encounter Qualified Code(s): S72.001A - Fracture of unspecified part of neck of right femur, initial encounter for closed fracture PLAN: Fall with closed fracture of neck of right femur Right hip hemiarthoplasy 06/20 25 [place] D level 65.1 from 06/08, repeat level 58.8 (2) COVID-19: PLAN: Positive test on 06/11. Patient was ill 2 days prior. Onset of COVID 19 was the 15th despite negative testing on that day. Patient has completed 10-days of isolation. (3) Leukocytosis: QUALIFIERS: Leukocytosis type: unspecified Qualified Code(s): D72.829 - Elevated white blood cell count, unspecified PLAN: Suspect reactive from hip fracture Monitor (4) Toxic encephalopathy: PLAN: suspect due to oxycodone and morphine Narcotics held no focal deficits to suggest stroke. PLAN: Plan Chronic conditions: * Ischemic cardiomyopathy: EF 40% from 04/07/2023. Compensated. Continue losartan, carvedilol, furosemide, PRN metolazone. Cautious use of IVF. s/p AICD. 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 * HTN: continue home meds * hypothyroidism: continue levothyroxine * HLP: continue statin DVT prophylaxis SCD ordered. Disposition: to SNF. Charges/Coding Visit Charges Inpatient E&M: 57547 Subs Hosp L2
--- NOTE | 2023-06-21 10:38 | NURSING ---
called into room as primary RN called by therapy stating pt not acting right. drowsy. into room pt in recliner sitting upright appears drowsy. noted bp 76/53 hr 60's pt placed in far reclined position. pt responsive. noted bp 100/48. rechecked 98/46- hr 64. noted o2 4l. 93% aware per primary RN o2 was increased from 3l. pt states feels better but noted drowsiness.
[2023-06-21 11:11] LABS: Bedside Glucose 135 mg/dL (74-106)
--- NOTE | 2023-06-21 12:25 | NURSING ---
due to technical error- charting by Sakshi Mccarty RN 06/21 at 0525 was actually charted and by Krissy Perry LPN
[2023-06-21] MEDS: Acetaminophen 500 MG Tablet 1000 MG PO ×2 (12:50→20:18)
--- NOTE | 2023-06-21 15:04 | CASEMGMT ---
Social Work SW reviewed chart and pt has a living will and health care POA on file naming his Renetta Kinney. MICHEAL Rodriguez
--- NOTE | 2023-06-21 15:17 | CASEMGMT ---
Social Work SW met with pt and introduced self and role of SW. Pt is admitted from the TCU. SW inquired about d/c plan and pt would like to return to TCU when able. Referral made to [facility] in TCU and they are able to accept back when medically ready. Pt is aware. Plan: TCU, when medically ready MICHEAL Rodriguez
[2023-06-21] MEDS: oxyCODONE 5 MG Tablet 2.5 MG PO ×2 (16:32→22:43)
[2023-06-21] MEDS: Mirtazapine 30 MG Tablet PO (20:18)
[2023-06-22] VITALS (9 sets, daily range): BP systolic 94–155; BP diastolic 53–70; PULSE 61–69; RESP 16–18; TEMP 36.4–37.5; O2SAT 82–94
[2023-06-22] MEDS: Acetaminophen 500 MG Tablet 1000 MG PO (05:01)
[2023-06-22] MEDS: Levothyroxine 25 MCG TABLET PO (05:01)
[2023-06-22] MEDS: oxyCODONE 5 MG Tablet 2.5 MG PO (05:01)
[2023-06-22 07:06] LABS: Hematocrit 35.5 % (40-54); Hemoglobin 11.8 g/dL (13.0-16.5); Mean Corp Hgb Conc 33.2 g/dL (32-36); Mean Corpuscular Hgb 32.7 pg (27.0-32.0); Mean Corpuscular Volume 98.3 fL (80-94); Mean Platelet Vol. 9.7 fl (6.2-12.0); Platelet Count 261 K/mm3 (150-450); RBC Distribution Width CV 13.5 % (11.6-14.6); RBC Distribution Width SD 49.1 fl (35.1-43.9); Red Blood Count 3.61 M/mm3 (4.6-6.2); White Blood Count 13.9 K/mm3 (4.4-11.0)
[2023-06-22] MEDS: Mirabegron 50 MG TAB.ER.24H PO (08:10)
[2023-06-22] MEDS: Aspirin E.C. 81 MG Tablet 162 MG PO (08:10)
[2023-06-22] MEDS: DULoxetine Hcl 60 MG Capsule PO (08:10)
[2023-06-22] MEDS: Carvedilol 3.125 MG TABLET PO (08:10)
[2023-06-22] MEDS: Calcium Carbonate 500 MG Tablet PO ×2 (08:10→10:56)
[2023-06-22] MEDS: Amiodarone 200 MG Tablet 100 MG PO (08:11)
[2023-06-22] MEDS: Senna/Docusate Sodium 1 Tablet 2 TABLET PO (08:11)
[2023-06-22] MEDS: Tamsulosin HCl 0.4 MG Capsule PO (08:12)
[2023-06-22] MEDS: Losartan Potassium 50 MG Tablet PO (08:12)
[2023-06-22] MEDS: Furosemide 40 MG Tablet PO (08:12)
[2023-06-22] MEDS: Potassium Chloride Oral Tablet 10 MEQ 20 MEQ PO (08:12)
[2023-06-22] MEDS: Pantoprazole Sodium 20 MG Tablet PO (08:13)
--- NOTE | 2023-06-22 08:17 | PN.HOSP_ITS ---
Reason for Visit Reason for Visit: Diagnoses Elevated white blood cell count, unspecified (06/19/23) Unspecified toxic encephalopathy (06/19/23) Essential (primary) hypertension (06/19/23) Ischemic cardiomyopathy (06/19/23) Paroxysmal atrial fibrillation (06/19/23) Fracture of unspecified part of neck of right femur, initial encounter for closed fracture (06/19/23) COVID-19 (06/19/23) Unspecified fall, initial encounter (06/19/23) Subjective Subjective Feels well. No pain. Objective Data Objective Data Vital Signs: Vital Signs Temp Pulse Resp BP Pulse Ox O2 Del Method O2 Flow Rate 37.5 C H 66 18 155/68 H 92 Nasal Cannula 2 06/22/23 04:47 06/22/23 04:47 06/22/23 04:52 06/22/23 04:47 06/22/23 07:25 06/22/23 07:25 06/22/23 07:25 Oxygen Flow Rate (L/min) 2 Oxygen Delivery Method Nasal Cannula Weight: 90.7 kg Body Mass Index (BMI) 30.4 Intake & Output: Intake and Output for Last 24 Hours 06/20/23 06/21/23 06/22/23 23:59 23:59 23:59 Intake Total 1500 / 1500 609 / 609 200 / 200 Output Total 400 / 400 400 / 400 350 / 350 Balance 1100 / 1100 209 / 209 -150 / -150 Lab / Micro Data 06/22/23 06:35 06/21/23 06:10 Labs: Laboratory Results - last 24 hr 06/21/23 10:36: POC Glucose 135 H 06/22/23 06:35: WBC 13.9 H, RBC 3.61 L, Hgb 11.8 L, Hct 35.5 L, MCV 98.3 H, MCH 32.7 H, MCHC 33.2 D, RDW Std Deviation 49.1 H, RDW Coeff of Elpidio 13.5, Plt Count 261, MPV 9.7 Physical Exam Const alert and no apparent distress Neuro oriented x3 Sensorium / Orientation: awake and alert Psych affect normal Assessment & Plan Assessment/Plan (1) Closed fracture of neck of right femur: QUALIFIERS: Encounter type: initial encounter Qualified Code(s): S72.001A - Fracture of unspecified part of neck of right femur, initial encounter for closed fracture PLAN: Fall with closed fracture of neck of right femur Right hip hemiarthoplasy 06/20 25 [place] D level 65.1 from 06/08, repeat level 58.8 (2) COVID-19: PLAN: Positive test on 06/11. Patient was ill 2 days prior. Onset of COVID 19 was the 15th despite negative testing on that day. Patient has completed 10-days of isolation. (3) Leukocytosis: QUALIFIERS: Leukocytosis type: unspecified Qualified Code(s): D72.829 - Elevated white blood cell count, unspecified PLAN: Suspect reactive from hip fracture Monitor (4) Toxic encephalopathy: PLAN: suspect due to oxycodone and morphine Narcotics held no focal deficits to suggest stroke. Resumed low-dose of oxycodone and he appears to tolerate that. PLAN: Plan Chronic conditions: * Ischemic cardiomyopathy: EF 40% from 04/07/2023. Compensated. Continue losartan, carvedilol, furosemide, PRN metolazone. Cautious use of IVF. s/p AICD. 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 * HTN: continue home meds * hypothyroidism: continue levothyroxine * HLP: continue statin DVT prophylaxis SCD ordered. Disposition: to rehab today.
[2023-06-22 11:15] LABS: Bedside Glucose 188 mg/dL (74-106)
--- NOTE | 2023-06-22 13:28 | PCM.PN.ORT ---
Subjective Subjective Patient seen and examined. Right hip feeling better. Up to chair with therapy. Denies fevers, chills, nausea vomiting, chest pain or shortness of breath. Objective Data Objective Data Vital Signs: Vital Signs Temp Pulse Resp BP Pulse Ox O2 Del Method O2 Flow Rate 97.6 F L 69 16 94/53 L 82 Room Air 2 06/22/23 11:06/22/23 12:54 06/22/23 11:06/22/23 11:06/22/23 11:06/22/23 11:06/22/23 11:26 Oxygen Flow Rate (L/min) 2 Oxygen Delivery Method Room Air Weight: 199 lb 15.348 oz Body Mass Index (BMI) 30.4 Intake & Output: Intake and Output for Last 24 Hours 06/20/23 06/21/23 06/22/23 23:59 23:59 23:59 Intake Total 1500 / 1500 609 / 609 450 / 450 Output Total 400 / 400 400 / 400 450 / 450 Balance 1100 / 1100 209 / 209 0 / 0 Lab / Micro Data 06/22/23 06:35 06/21/23 06:10 Labs: Laboratory Results - last 24 hr 06/22/23 06:35: WBC 13.9 H, RBC 3.61 L, Hgb 11.8 L, Hct 35.5 L, MCV 98.3 H, MCH 32.7 H, MCHC 33.2 D, RDW Std Deviation 49.1 H, RDW Coeff of Elpidio 13.5, Plt Count 261, MPV 9.7 06/22/23 10:55: POC Glucose 188 H Physical Exam Narrative General - A&Ox3, NAD. VSS/AF Right lower extremity -incisional dressing C/D/I. SILT Sural, Saphenous, SPN, DPN, Tibial N. distributions. DP, PT 2+. BCR. DF, PF, EHL 5/5. No calf TTP. Assessment & Plan Assessment/Plan (1) Closed fracture of neck of right femur: QUALIFIERS: Encounter type: initial encounter Qualified Code(s): S72.001A - Fracture of unspecified part of neck of right femur, initial encounter for closed fracture PLAN: POD#2 s/p right hip hemiarthroplasty -Hemoglobin stable at 11.8 - Pain control - Medicine following for medical management - PT/OT-weightbearing as tolerated, posterior precautions - DVT PPX -Lovenox, SCDs, KIMBERLY hose, early mobilization -Encourage incentive spirometer use - Case management - D/C planning Patient stable from orthopedic standpoint. I will sign off at this time. Please not hesitate to call if any questions or concerns arise. Discharge instructions: Maintain surgical dressing x7 days. Okay to remove at that time and leave open to air. Follow-up in 2 weeks for staple removal and x-rays. Continue posterior precautions. Recommending Lovenox upon discharge x28 days postoperatively. PT/OT upon discharge.
--- NOTE | 2023-06-22 13:30 | DS.PCM_ITS ---
Providers Date of Admission: 06/19/23 Primary Care Physician: MARIELENA Edwards Consultations 06/20/23 00:51 Consult: Orthopedics Routine Consulting Provider: Ramesh Dorman Reason for Consult: Right femoral neck fracture EMERGENT Consult: No MD Notified: Yes Date Notified: 06/19/23 Time Notified: 22:42 Method of Notification: ED Physician Initiated Reason For Visit: RIGHT FEMORAL NECK FRACTURE Diagnosis Discharge Diagnosis (1) Closed fracture of neck of right femur: Status: Acute Code(s): S72.001A - Fracture of unspecified part of neck of right femur, initial encounter for closed fracture Qualifiers: Encounter type: initial encounter Qualified Code(s): S72.001A - Fracture of unspecified part of neck of right femur, initial encounter for closed fracture Plan: Fall with closed fracture of neck of right femur Right hip hemiarthoplasy 06/20 25 [place] D level 65.1 from 06/08, repeat level 58.8 (2) COVID-19: Status: Acute Code(s): U07.1 - COVID-19 Plan: Positive test on 06/11. Patient was ill 2 days prior. Onset of COVID 19 was the 15th despite negative testing on that day. Patient has completed 10-days of isolation. (3) Leukocytosis: Status: Acute Code(s): D72.829 - Elevated white blood cell count, unspecified Qualifiers: Leukocytosis type: unspecified Qualified Code(s): D72.829 - Elevated white blood cell count, unspecified Plan: Suspect reactive from hip fracture Monitor (4) Toxic encephalopathy: Status: Acute Code(s): G92.9 - Unspecified toxic encephalopathy Plan: suspect due to oxycodone and morphine Narcotics held no focal deficits to suggest stroke. Resumed low-dose of oxycodone and he appears to tolerate that. Plan Chronic conditions: * Ischemic cardiomyopathy: EF 40% from 04/07/2023. Compensated. Continue losartan, carvedilol, furosemide, PRN metolazone. Cautious use of IVF. s/p AICD. 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 * HTN: continue home meds * hypothyroidism: continue levothyroxine * HLP: continue statin DVT prophylaxis SCD ordered. Disposition: to rehab today. Medications at Discharge Home Medications atorvastatin 40 mg tablet 40 mg PO .HS cholesterol 04/05/18 nitroglycerin 0.4 mg sublingual tablet 0.4 mg sublingual Q5-15M PRN pain 04/05/18 mirtazapine 30 mg tablet (Remeron) 30 mg PO .HS SLEEP 09/26/18 omeprazole 20 mg tablet,delayed release 20 mg PO DAILY reflux 09/26/18 potassium chloride 10 mEq tablet,extended release 20 meq PO BID supplement 11/18/19 aspirin 81 mg tablet,delayed release 81 mg PO QDAY heart health 02/01/22 amiodarone 200 mg tablet 100 mg (1/2 x 200 mg) PO QDAY heart rate #90 tabs 08/08/22 duloxetine 60 mg capsule,delayed release 60 mg PO DAILY mental health 03/21/23 furosemide 40 mg tablet 40 mg PO DAILY diuretic 03/21/23 levothyroxine 25 mcg tablet 50 mcg PO .Sa/Reynolds thyroid 03/21/23 levothyroxine 25 mcg tablet (Euthyrox) 25 mcg PO .M-F thyroid 03/21/23 mirabegron 50 mg tablet,extended release 24 hr (Myrbetriq) 50 mg PO DAILY BLADDER 05/19/23 acetaminophen 500 mg capsule 1,000 mg PO Q8H PRN PRN Pain 1-10 05/22/23 metolazone 2.5 mg tablet 2.5 mg PO DAILY PRN FLUID RETENTION 05/22/23 sennosides 8.6 mg-docusate sodium 50 mg tablet (Stool Softener-Stimulant La xative) 2 tab PO BID Constipation #1 TAB 05/31/23 carvedilol 3.125 mg tablet 3.125 mg PO BID #180 tabs 06/07/23 losartan 50 mg tablet 50 mg PO DAILY BP #60 tabs 06/07/23 tamsulosin 0.4 mg capsule 0.4 mg PO DAILY 06/07/23 enoxaparin 40 mg/0.4 mL subcutaneous syringe (Lovenox) 40 mg (0.4 mL) subcut DAILY #4 mL 06/22/23 oxycodone 5 mg tablet 2.5 mg (1/2 x 5 mg) PO Q6H PRN PRN Pain Score 6-10 #0 tabs 06/22/23 sennosides 8.6 mg-docusate sodium 50 mg tablet (Stool Softener-Stimulant Laxative) 2 tab PO BID #0 tabs 06/22/23 Hospital Course Operations - (right hip hemiarthoplasty. ) Summary of Care Provided Minutes Spent on Discharge: 32 Hospital Course: Was in the transitional care unit for rehab and fell while he was there and developed a femoral neck fracture involving the right hip. Patient was seen in consultation by orthopedics and patient was taken to the operating room for a right hip hemiarthroplasty on the . Patient did well but did have issues in regards to narcotics where he became confused and somnolent and dropped his sats. His narcotics were discontinued and his mental status improved only to restart the narcotics at a much lower dose which she is seems to have tolerated since then. Patient's course was otherwise uncomplicated and will be discharged to the rehab unit in stable condition. Weight / BMI Weight Weight: 90.7 kg Body Mass Index (BMI) 30.4 ABG / Lab / Microbiology Data 06/22/23 06:35 06/21/23 06:10 Laboratory: Laboratory Results - last 24 hr 06/22/23 06:35: WBC 13.9 H, RBC 3.61 L, Hgb 11.8 L, Hct 35.5 L, MCV 98.3 H, MCH 32.7 H, MCHC 33.2 D, RDW Std Deviation 49.1 H, RDW Coeff of Elpidio 13.5, Plt Count 261, MPV 9.7 06/22/23 10:55: POC Glucose 188 H D/C Instructions Discharge Diet: No restrictions Weight Bearing Status: Weight bearing as tolerated Keep extremity elevated above heart level: Right Leg Call your doctor if your incision/area has: Continuous Slow Oozing, Sudden Increased Bleeding, Increased Pain/ Swelling, Increased Redness and Swelling at the incision site Meaningful Use Info Meaningful Use Diagnoses (Choose all that apply): None applicable Discharge Plan Admission Admit Date/Time: 06/19/23 22:28 Primary Reason for Your Visit: right hip fracture. Attending Provider: Shankar Billings Primary Care Provider: Kaylin Hiu Consulting Providers: Ramesh Dorman; Jd Goff Discharge Orders/Prescriptions Prescriptions: New sennosides-docusate sodium [Stool Softener-Stimulant Laxat] 8.6-50 mg Tablet 2 tab PO BID Qty: 0 0RF oxycodone 5 mg Tablet 2.5 mg PO Q6H PRN PRN (Reason: Pain Score 6-10) Qty: 0 0RF enoxaparin [Lovenox] 40 mg/0.4 mL syringe 40 mg subcut DAILY Qty: 4 0RF Continued nitroglycerin 0.4 mg tablet, sublingual 0.4 mg SUBLINGUAL Q5-15M PRN (Reason: pain) atorvastatin 40 mg tablet 40 mg PO .HS aspirin 81 mg tablet,delayed release (DR/EC) 81 mg PO QDAY Rx Instructions: 2 tabs daily omeprazole 20 mg tablet,delayed release (DR/EC) 20 mg PO DAILY mirtazapine [Remeron] 30 mg tablet 30 mg PO .HS potassium chloride 10 mEq tablet extended release 20 meq PO BID levothyroxine [Euthyrox] 25 mcg tablet 25 mcg PO .M-F levothyroxine 25 mcg tablet 50 mcg PO .Sa/Reynolds duloxetine 60 mg capsule,delayed release(DR/EC) 60 mg PO DAILY furosemide 40 mg tablet 40 mg PO DAILY tamsulosin 0.4 mg capsule 0.4 mg PO DAILY carvedilol 3.125 mg tablet 3.125 mg PO BID Qty: 180 3RF Rx Instructions: must administer with a meal/food losartan 50 mg tablet 50 mg PO DAILY Qty: 60 0RF Myrbetriq 50 mg tablet extended release 24 hr 50 mg PO DAILY Patient Comments: TAKE 1 TABLET BY MOUTH ONCE DAILY acetaminophen 500 mg capsule 1,000 mg PO Q8H PRN PRN (Reason: Pain 1-10) metolazone 2.5 mg tablet 2.5 mg PO DAILY PRN (Reason: FLUID RETENTION) sennosides-docusate sodium [Stool Softener-Stimulant Laxat] 8.6-50 mg Tablet 2 tab PO BID Qty: 1 0RF amiodarone 200 mg tablet 100 mg PO QDAY Qty: 90 3RF Discontinued oxycodone 5 mg Tablet 5 mg PO Q8H PRN (Reason: Pain Score 4-10) 7 Days Qty: 20 0RF Referrals / Follow Up: Ramesh Dorman DO [Med Staff - Active Staff] - Within 2 Weeks Kaylin Hui PA [Primary Care Provider] - Within 2 Weeks Disposition Disposition (needs filled in before D/C Order can be placed): Inpatient Rehab Unit/Facility Charges/Coding Visit Charges Inpatient E&M: 00478 Disch Hosp >30min
--- NOTE | 2023-06-22 13:55 | CASEMGMT ---
Social Work SW spoke with [facility] in post acute care and pt is appropriate for Inpatient Rehab. SW met with pt and pt Romy and informed that [facility] can accept and pt is agreeable to this instead of TCU. Physician updated and pt is ready for discharge today. [facility] in [facility] notified and pt can be accepted today. Pt and updated on discharge to [facility] today and agreeable. Nursing notified. Disposition: Inpatient Rehab today MICHEAL Vitale
== END 2023-06-22 14:22 | DRG 521 ==
LOC: ED 22:39 → MS3 06-20 00:28
PROVIDERS: Anesthesiology; Student in an Organized Health Care Education/Training Program; Admitting Provider Hospitalist; Emergency Provider Emergency Medicine; PCP Physician Assistant
PROC: 0SRR0JA Replacement of Right Hip Joint, Femoral Surface with Synthetic Substitute, Uncemented, Open Approach (ICD-10-PCS; CPT 27125; principal; 2023-06-20 13:40)
DX: S72.001A Fracture of unspecified part of neck of right femur, initial encounter for closed fracture (principal); U07.1 COVID-19; G92.9 Unspecified toxic encephalopathy; I48.0 Paroxysmal atrial fibrillation; E03.9 Hypothyroidism, unspecified; I10 Essential (primary) hypertension; E78.5 Hyperlipidemia, unspecified; I25.10 Atherosclerotic heart disease of native coronary artery without angina pectoris; I25.5 Ischemic cardiomyopathy; W19.XXXA Unspecified fall, initial encounter; Z87.891 Personal history of nicotine dependence; Z79.82 Long term (current) use of aspirin; Z86.73 Personal history of transient ischemic attack (TIA), and cerebral infarction without residual deficits; R09.02 Hypoxemia; T40.2X5A Adverse effect of other opioids, initial encounter; Z95.810 Presence of automatic (implantable) cardiac defibrillator; Y92.239 Unspecified place in hospital as the place of occurrence of the external cause
CPT/HCPCS: 36415; 71045; 73502; 80048; 81001; 82306; 82962; 84443; 85025; 85027; 85610; 85730; 86850; 86900; 86901; 88305; 88307; 88311; 93005; 97162; 97166; 99283; C1776; J7050; J7120; A4216; J2405

== ENCOUNTER 2023-06-22 14:38 | Inpatient (IN) | payer MEDICARE, BC, SELFPAY ==
[2023-06-22 15:44] VITALS: BP 113/55; PULSE 71; RESP 24; TEMP 36.6; O2SAT 98; BMI 30.3
--- NOTE | 2023-06-22 15:45 | NURSING ---
86% on room air. Placed 2 LPM via NC and came up to 98%.
[2023-06-22] MEDS: oxyCODONE 5 MG Tablet PO (19:06)
[2023-06-22 19:35] VITALS: BP 125/56; PULSE 73; RESP 24; TEMP 37.7; O2SAT 96
[2023-06-22] MEDS: Atorvastatin Calcium 40 MG Tablet PO (20:46)
[2023-06-22] MEDS: Acetaminophen 500 MG Tablet 1000 MG PO (20:47)
[2023-06-22] MEDS: Senna/Docusate Sodium 1 Tablet 2 TABLET PO (20:48)
[2023-06-22] MEDS: Potassium Chloride Oral Tablet 10 MEQ 20 MEQ PO (20:48)
[2023-06-22] MEDS: Mirtazapine 30 MG Tablet PO (20:48)
[2023-06-22] MEDS: Carvedilol 3.125 MG TABLET PO (20:49)
--- NOTE | 2023-06-23 01:58 | NURSING ---
Reviewed and agree with CLOTHING EXAMINER assessment.
[2023-06-23 06:00] VITALS: BMI 29.9
[2023-06-23] MEDS: Enoxaparin 40 MG/0.4 ML Syringe SC (06:10)
[2023-06-23] MEDS: Levothyroxine 25 MCG TABLET PO (06:10)
[2023-06-23] MEDS: Acetaminophen 500 MG Tablet 1000 MG PO ×2 (06:11→12:52)
[2023-06-23] MEDS: oxyCODONE 5 MG Tablet PO ×2 (06:14→13:00)
[2023-06-23 08:07] VITALS: BP 159/73; PULSE 67; RESP 19; TEMP 37.1; O2SAT 92
[2023-06-23 08:18] VITALS: O2SAT 95
[2023-06-23] MEDS: DULoxetine Hcl 60 MG Capsule PO (08:38)
[2023-06-23] MEDS: Aspirin E.C. 81 MG Tablet PO (08:38)
[2023-06-23] MEDS: Amiodarone 200 MG Tablet 100 MG PO (08:38)
[2023-06-23] MEDS: Mirabegron 50 MG TAB.ER.24H PO (08:38)
[2023-06-23] MEDS: Pantoprazole Sodium 20 MG Tablet PO (08:38)
[2023-06-23] MEDS: Senna/Docusate Sodium 1 Tablet 2 TABLET PO (08:38)
[2023-06-23] MEDS: Losartan Potassium 50 MG Tablet PO (08:39)
[2023-06-23] MEDS: Carvedilol 3.125 MG TABLET PO ×2 (08:39→18:01)
[2023-06-23] MEDS: Potassium Chloride Oral Tablet 10 MEQ 20 MEQ PO (08:41)
[2023-06-23] MEDS: Furosemide 40 MG Tablet PO (08:43)
[2023-06-23] MEDS: Tamsulosin HCl 0.4 MG Capsule PO (08:45)
[2023-06-23] MEDS: Flu Vacc QS2023-24(65YR UP)/PF 240 MCG/0.7 ML Syringe IM (12:07)
--- NOTE | 2023-06-23 12:17 | NURSING ---
flu vaccine given in rt deltoid. pt tolerated well
--- NOTE | 2023-06-23 16:19 | HP.PCM_ITS ---
[facility] - General General Date of Admission: 06/22/23 Date of Service: 06/23/23 Chief Complaint: Debility due to recent COVID infection and fall causing a hip fracture. He was just discharged form acute rehab on 05/31/23 to TCU with a diagnosis of failure to thrive after a vertebral compression fx (fall)/kyphoplasty. HPI Narrative AMANDA HERNANDEZ, is a 72 YO M well known to me from a recent admission to acute rehab from 05/22/23 to 05/31/23 for failure to thrive after a fall resulting in a vertebral compression fx/Kyphoplasty. PMH is listed below. On 06/11 he tested + for COVID and was restricted to his room and had 10 days of isolation s tarting from when he first became symptomatic on 06/09/23. On 06/19/23 he was sent from TCU to to the ED after a fall in his room with a c/o R hip pain. XRAYS done as an OP prior to going to the ED were consistent with a R femoral neck fracture. He was admitted to the hospitalist service and Dr. Dorman was consulted. He was taken to the OR on 06/21/23 for right hip hemiarthroplasty. Post operatively he had hypoxia and was placed on Oxygen. Narcotics were discontinued and confusion/somnolence and hypoxemia resolved. On 06/22/23 he was transferred to the acute inpt rehab unit at [facility] for 3 hours of therapy daily to restore function at or near his level prior to the initial fall resulting in a vertebral compression fx. All lab done recently was personally reviewed. HGB is mildly decreased at 11.8 due to ABLA. White blood cell count is 13.9. Platelets are within normal limits. He has not had any chemistries done since the . Vital signs this a.m. are temp 98.7, heart rate 67, blood pressure 159/73, respiratory rate 19 and he is 92% on room air. Night nursing reports that he had a DOUBLE END SEWER cough throughout the night. [facility] Medical History (Updated 06/23/23 @ 17:[address] Gris Duran DO) Adult failure to thrive Alcoholism Anxiety and depression Aphonia Atherosclerotic heart disease of ambler coronary artery without angina pectoris Bifascicular block BPH (benign prostatic hyperplasia) Bradycardia Cardiac arrest with ventricular fibrillation Congestive heart failure (CHF) CVA (cerebral vascular accident) Dysphagia Dyspnea on exertion Essential hypertension Fatigue Former smoker GERD (gastroesophageal reflux disease) History of tracheal stenosis Hyperlipidemia Hypertension Hypothyroidism ICD (implantable cardioverter-defibrillator) in place Ischemic cardiomyopathy Low back pain Myocardial infarct Non-rheumatic mitral regurgitation Parkinsonism due to drugs Right bundle branch block Syncope Trigeminal neuralgia Home Medications atorvastatin 40 mg tablet 40 mg PO .HS cholesterol 04/05/18 [History Last Taken 06/21/23] nitroglycerin 0.4 mg sublingual tablet 0.4 mg sublingual Q5-15M PRN pain 04/05/18 [History Last Taken Unknown] mirtazapine 30 mg tablet (Remeron) 30 mg PO .HS SLEEP 09/26/18 [History Last Taken 06/21/23] omeprazole 20 mg tablet,delayed release 20 mg PO DAILY reflux 09/26/18 [History Last Taken 06/22/23] potassium chloride 10 mEq tablet,extended release 20 meq PO BID supplement 11/18/19 [History Last Taken 06/22/23] aspirin 81 mg tablet,delayed release 81 mg PO QDAY heart health 02/01/22 [History Last Taken 06/22/23] amiodarone 200 mg tablet 100 mg (1/2 x 200 mg) PO QDAY heart rate #90 tabs 08/08/22 [Rx Last Taken 06/22/23] duloxetine 60 mg capsule,delayed release 60 mg PO DAILY mental health 03/21/23 [History Last Taken 06/22/23] furosemide 40 mg tablet 40 mg PO DAILY diuretic 03/21/23 [History Last Taken 06/22/23] levothyroxine 25 mcg tablet 50 mcg PO .Sa/Reynolds thyroid 03/21/23 [History Last Taken Unknown] levothyroxine 25 mcg tablet (Euthyrox) 25 mcg PO .M-F thyroid 03/21/23 [History Last Taken 06/22/23] mirabegron 50 mg tablet,extended release 24 hr (Myrbetriq) 50 mg PO DAILY BLADDER 05/19/23 [History Last Taken 06/22/23] acetaminophen 500 mg capsule 1,000 mg PO Q8H PRN PRN Pain 1-10 05/22/23 [History Last Taken 06/22/23] metolazone 2.5 mg tablet 2.5 mg PO DAILY PRN FLUID RETENTION 05/22/23 [History Last Taken Unknown] carvedilol 3.125 mg tablet 3.125 mg PO BID BP #180 tabs 06/07/23 [Rx Last Taken 06/22/23] losartan 50 mg tablet 50 mg PO DAILY BP #60 tabs 06/07/23 [Rx Last Taken 06/22/23] tamsulosin 0.4 mg capsule 0.4 mg PO DAILY retention 06/07/23 [History Last Taken 06/22/23] enoxaparin 40 mg/0.4 mL subcutaneous syringe (Lovenox) 40 mg (0.4 mL) subcut DAILY prophylactic #4 mL 06/22/23 [Rx Last Taken 06/22/23] oxycodone 5 mg tablet 2.5 mg (1/2 x 5 mg) PO Q6H PRN PRN Pain Score 6-10 #0 tabs 06/22/23 [Rx Last Taken 06/22/23] Allergy/AdvReac Type Severity Reaction Status Date / Time lisinopril AdvReac cough Verified 06/07/23 14:19 Family History Mother Heart disease Cancer breast CAD (coronary artery disease) Breast cancer Father Colon cancer Sister Breast cancer Rheumatoid arthritis Surgical History (Updated 06/23/23 @ 17:[address] 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 Admits to 8-9 beers a day at the present time. substance use type: does not use caffeine: No ROS Review of Systems ROS Unobtainable: other Details: He is not very verbal today and actually seems obtunded. Not sure how reliable the ROS is today. Constitutional Constitutional: Reports fatigue and weakness Eyes Eyes: Denies change in vision ENT HEENT: Reports dizziness and other Details: nursing reports he is pocketing his medications. ; Denies nasal discharge, odynophagia or sinus pain Cardiovascular Cardiovascular: Reports lightheadedness and nausea Respiratory/Chest Respiratory/Chest: Denies productive cough, restlessness or shortness of breath at rest Gastrointestinal Gastrointestinal: Reports abdominal pain, bloating, change in bowel habits, constipation, dyspepsia and nausea; Denies diarrhea Musculoskeletal Musculoskeletal: Reports back pain, difficulty walking, joint pain and muscle weakness Integumentary Integumentary: Denies rash Neurologic Neurologic: Reports weakness; Denies headache(s) or restless legs Psychiatric Psychiatric: Reports depression and other Details: 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 ; Denies anxiety, auditory hallucinations or hallucinations Hematologic/Lymphatic Hematologic/Lymphatic: Reports easy bleeding and easy bruising Allergic/Immunologic Allergic/Immunologic: Denies asthma Vital Signs Vital Signs Vital Signs: 06/22/23 19:35 06/22/23 21:12 06/23/23 08:07 Temperature 99.9 F H 98.7 F Temperature Source Temporal Temporal Pulse Rate 73 67 Respiratory Rate 24 H 19 H Respiratory Effort Normal Non-Labored Respiratory Depth Normal Respiratory Pattern Normal Blood Pressure 125/56 H 159/73 H Blood Pressure Mean 79 101 Blood Pressure Source Monitor Monitor Blood Pressure Position Sitting Semi-Fowlers Blood Pressure Location Right Arm Right Arm Pulse Ox 96 92 Oxygen Delivery Method Nasal Cannula Nasal Cannula Room Air Oxygen Flow Rate (L/min) 2 2 06/23/23 08:18 06/23/23 09:02 06/23/23 14:44 Temperature Temperature Source Pulse Rate Respiratory Rate Respiratory Effort Respiratory Depth Respiratory Pattern Blood Pressure Blood Pressure Mean Blood Pressure Source Blood Pressure Position Blood Pressure Location Pulse Ox 95 Oxygen Delivery Method Room Air Oxygen Flow Rate (L/min) 2 1 Weight Weight: 202 lb 9.677 oz Body Mass Index (BMI) 29.9 Physical Exam Narrative He is sitting in the recliner and seems obtunded. He has a waxy/yellowish color. He is requesting to go back to bed. Very drowsy. He last had Oxycodone at 1 PM. He is not coughing and he is barely able to answer my questions. His voice is very soft and not projecting well. I am having a hard time hearing what he is saying, even up close. Const no apparent distress Constitutional Narrative: Does not look good.....marked change in his appearance and BLANQUITA since he left acute rehab on 05/31/23. He looks somewhat apprehensive and definitely weak. HEENT head/scalp atraumatic HEENT Narrative: Dry MM Eyes PERRL, EOMs intact bilaterally, conjunctivae normal and no scleral icterus General Eye: normal appearance of both eyes Neck No nuchal rigidity, supple and no carotid bruits Chest Chest: symmetrical chest wall rise Resp Resp Narrative: Not taking very deep breaths and the Bs's are somewhat diminished. He has persistent crackles in the R base but, the lungs are otherwise CTA. He is not tachypneic and brething is not labored. He is not coughing. Cardio regular rate, regular rhythm, no murmurs and no gallops Cardio Narrative: No ectopy GI GI Narrative: The abd is somewhat firm. He had no guarding with palpation. BS's are hypoactive. No masses. He tells me he is constipated and feels bloated. Back/Spine Back/Spine Narrative: No change in the chronic back pain. Extremity no calf tenderness and no pedal edema Extremity Narrative: Telling me that at the moment the hip is not hurting much. Skin General Skin Exam: no breakdown Rashes: no rashes Neuro CN's II-XII intact bilaterally, moves all extremities and no focal motor deficits Neuro Narrative: very weak. Psych Psych Narrative: obtunded/drowsy/very little facial expression except to look apprehensive. Voice is a whisper. Not restless or agitated. Depressed. Assessment & Plan Assessment/Plan (1) Physical debility: (2) Fall: QUALIFIERS: Encounter type: initial encounter Qualified Code(s): W19.XXXA - Unspecified fall, initial encounter (3) Closed fracture of neck of right femur: QUALIFIERS: Encounter type: initial encounter Qualified Code(s): S72.001A - Fracture of unspecified part of neck of right femur, initial encounter for closed fracture (4) Status post right shoulder hemiarthroplasty: (5) ABLA (acute blood loss anemia): (6) Leukocytosis: QUALIFIERS: Leukocytosis type: unspecified Qualified Code(s): D72.829 - Elevated white blood cell count, unspecified (7) Toxic encephalopathy: (8) COVID-19: (9) Ischemic cardiomyopathy: (10) Coronary artery disease: (11) History of implantable cardioverter-defibrillator (ICD) placement: (12) Alcohol abuse: (13) Depression: (14) Atrial fibrillation: QUALIFIERS: Atrial fibrillation type: paroxysmal Qualified Code(s): I48.0 - Paroxysmal atrial fibrillation (15) Overactive bladder: (16) Hypertension: QUALIFIERS: Hypertension type: primary hypertension Qualified Code(s): I10 - Essential (primary) hypertension (17) GERD (gastroesophageal reflux disease): (18) Vertebral fracture: QUALIFIERS: Encounter type: subsequent encounter (19) Non-rheumatic mitral regurgitation: PLAN: Plan PLAN PT for gait stability OT for ADL's ST for evaluation Analgesics as needed Bowel protocol Fall precautions Assess for Anxiety/Depression GI prophylaxis with pantoprazole DVT prophylaxis with Lovenox Follow up with MARIELENA Edwards, Dr. Houston, Dr. Johnson and Dr. Ceron. Following DC from [facility] Rehab AM lab ordered CMP, CBC with diff, Mag and Phos PA and Lat CXR today. DC the Oxy and start Tramadol 4X's a day scheduled Tylenol 1 GM Q 8H He is currently not on the Olanzapine.........may need to add this back......I believe he was taking this for resistatn depression. Charges/Coding Visit Charges Inpatient E&M: 29145 Init Hosp L3
--- NOTE | 2023-06-23 17:45 | RAD_ITS ---
STUDY: X-RAY CHEST REASON FOR EXAM: Male, 72 years old. cough/crackles R base TECHNIQUE: AP and lateral COMPARISON: None. FINDINGS: There is elevated right hemidiaphragm due to superimposition of the hepatic flexure above the dome of the liver with associated minor basilar atelectasis.. There is no demonstrated pleural abnormality. Postop change status post median sternotomy Heart is enlarged. Normal mediastinum and renny. Normal visualized pulmonary arteries. Normal visualized aortic arch and descending thoracic aorta. AICD noted on the left with electrode in right ventricle. Dorsal spine and shoulders demonstrate degenerative change. Normal visualized ribs, and clavicles. Nonspecific distention of the colon. Multiple old thoracolumbar compression fractures status post kyphoplasty. . 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 No gross infiltration or pulmonary edema Electronically Signed: Maikel Benjamin MD at 18:16 EDT ,
--- NOTE | 2023-06-23 18:02 | RAD_ITS ---
STUDY: X-RAY - ABDOMEN/PELVIS REASON FOR EXAM: Male, 72 years old. NG placement -- KUB with both diaphragms for NG/OG Verification attempt #1 TECHNIQUE: KUB COMPARISON: None. FINDINGS: Normal visualized lung bases. Nonspecific bowel distention.. There is no demonstrated free abdominal air. The visualized liver, spleen and kidneys are grossly normal in size and morphology. NG tube noted with tip in proximal gastric cardia and should be advanced. Old compression fractures status post kyphoplasty. RAD/Abdomen Single View (Portable) IMPRESSION: NG tube placement in proximal gastric cardia and should be advanced. Electronically Signed: Maikel Benjamin MD at 19:53 EDT ,
--- NOTE | 2023-06-23 18:11 | CT_ITS ---
STUDY: CT ABDOMEN AND PELVIS WITH CONTRAST REASON FOR EXAM: Male, 72 years old. abd pain and distension with possible air under R RADIATION DOSAGE (If Supplied By Facility): CTDIvol = ( 16.91 ) mGy, DLP = ( 1334.35 ) mGycm TECHNIQUE: Transaxial images were obtained from the dome of the diaphragm to the symphysis pubis without oral contrast. Oral and amp; IV Gastrografin and amp; 100mL Isovue-370 was administered. Sagittal and coronal images were reconstructed. Individualized dose optimization techniques were used for this CT. COMPARISON: None. FINDINGS: Minor subsegmental atelectasis in the right lower lobe.. Heart size is normal. There is mild coronary artery calcification. Normal liver. Normal gallbladder and extrahepatic biliary system. Normal spleen. Normal pancreas. Normal bilateral adrenal glands. Normal right kidney. Normal left kidney. NG tube noted in the gastric fundus. Normal small intestine. There is diffusely distended ascending transverse and descending colon with transition point to normal caliber at the level of the sigmoid.. This may represent ileus however focal obstructing mucosal lesion is not entirely excluded No evidence for acute appendicitis Mild atherosclerotic changes of the aorta without evidence for aneurysm. Normal inferior vena cava. Normal retroperitoneum. Normal urinary bladder. Fat-containing right inguinal hernia noted. Lumbar spine demonstrates. Chronic compression fractures of T12 and L1 status post kyphoplasty CT/Abdomen/Pelvis WITH Contrast IMPRESSION: No evidence for small bowel obstruction or pneumoperitoneum.. Diffusely distended colon to the level of the sigmoid of indeterminate etiology possibly representing ileus although focal obstructing lesion cannot be entirely excluded. Colonoscopy or Gastrografin enema would be helpful for further evaluation if clinically indicated Electronically Signed: Maikel Benjamin MD at 22:49 EDT ,
[2023-06-23 18:50] LABS: Absolute Lymphocyte Count 0.63 X10^3/uL (0.83-4.51); Absolute Neutrophil Count 14.6 X10^3/uL (2.0-7.7); Basophil# 0.03 X10^3/uL; Basophil% 0.2 % (0-1); Eosinophil# 0.03 X10^3/uL; Eosinophils% 0.2 % (0-5); Hematocrit 35.5 % (40-54); Hemoglobin 11.5 g/dL (13.0-16.5); Lymphocyte # 0.63 X10^3/ul (0.83-4.51); Lymphocyte % 3.7 % (19-41); Mean Corp Hgb Conc 32.4 g/dL (32-36); Mean Corpuscular Volume 98.9 fL (80-94); Mean Platelet Vol. 9.7 fl (6.2-12.0); Monocyte# 1.66 X10^3/uL; Monocyte% 9.7 % (0-10); NRBC Flagged by Analyzer 0 % (0-5); Neutrophil # 14.58 X10^3/uL (2.7-7.7); Neutrophil % 85.5 % (47-70); POSITIVE DIFFERENTIAL YES; Platelet Count 353 K/mm3 (150-450); RBC Distribution Width CV 13.2 % (11.6-14.6); RBC Distribution Width SD 48.2 fl (35.1-43.9); Red Blood Count 3.59 M/mm3 (4.6-6.2); White Blood Count 17.1 K/mm3 (4.4-11.0)
[2023-06-23 18:55] LABS: Differential Indicated SCAN CRITERIA MET
[2023-06-23] MEDS: Oxymetazoline 0.05% 1 SPRAY SPRAY.BTL 2 SPRAY NASAL (18:56)
[2023-06-23 19:04] LABS: Magnesium 2.3 mg/dL (1.6-2.6); Phosphorus 2.4 mg/dL (2.5-4.9)
[2023-06-23 19:06] LABS: ALB/GLOB Ratio 0.7 RATIO (0.9-2.4); AST(SGOT) 41 U/L (15-37); Alanine Aminotransfer ALT/SGPT 24 U/L (16-61); Albumin, Serum 2.8 g/dL (3.2-5.0); Alkaline Phosphatase 101 U/L (45-117); Anion Gap 3 (5-15); BUN 21 mg/dL (7-18); BUN/Creat Ratio 15.3 RATIO (10-20); Calcium,Total 9.6 mg/dL (8.5-10.1); Chloride 100 mmol/L (98-107); Creatinine, Serum 1.37 mg/dL (0.70-1.30); EST Glomerular Filtration Rate 55 mL/min (>60); Est Glom Filt Rate - Afr Amer 66 mL/min (>60); Estimated Creatinine Clearance 50.17 ml/min; Globulin 4.3 g/dL (2.2-4.2); Glucose 142 mg/dL (74-106); Potassium 3.8 mmol/L (3.5-5.1); Protein, Total 7.1 g/dL (6.4-8.2); Sodium Level 132 mmol/L (136-145)
[2023-06-23] MEDS: Lactated Ringers 1,000 ML 125 ML IV (19:12)
[2023-06-23 19:21] LABS: Differential Comment SCANNED
--- NOTE | 2023-06-23 19:31 | RAD_ITS ---
STUDY: X-RAY - ABDOMEN/PELVIS REASON FOR EXAM: Male, 72 years old. obstruction -- portable- recheck ng placement attempt #2 TECHNIQUE: ANGIE COMPARISON: June 23, 2023 7:19 PM FINDINGS: There is persistent diffuse bowel distention. NG tube has been advanced with tip in the proximal to mid gastric fundus RAD/Abdomen Single View IMPRESSION: NG tube placement with tip in proximal to mid gastric fundus Electronically Signed: Maikel Benjamin MD at 19:50 EDT ,
[2023-06-23 20:00] VITALS: BP 130/70; PULSE 67; RESP 16; TEMP 36.6; O2SAT 92
[2023-06-23 21:22] LABS: Bacteria 0 SEEN /hpf (None Seen); Mucous, Urine 0 SEEN /hpf (<or=2+); Red Blood Cells-Urine 0 SEEN /hpf (0-5); Squamous Epithelial Cells - UA 0 SEEN /hpf (0-5); White Blood Cells 0 SEEN /hpf (0-5)
[2023-06-23] MEDS: Pantoprazole Sodium 40 MG in 0.9% Normal Saline (100mL MB+) 100 ML 330 MG IV (21:27)
[2023-06-23 21:33] LABS: Color, Urine Yellow (Yellow); Glucose, Dipstick Normal (Normal); Ketone-Dipstick 5 mg/dl (Negative); Leukocyte Esterase-Dipstick 25 /ul (Negative); Nitrite-Dipstick Negative (Negative); Occult Blood-Urine Negative /ul (Negative); Protein-Dipstick 30 mg/dl (Negative); Urine Clarity Clear (Clear); Urine Urobilinogen Normal (Normal)
[2023-06-23 21:43] LABS: Urine Bilirubin Dipstick 1 mg/dL (Negative)
[2023-06-23 21:56] LABS: Hyaline Cast 25-50 SEEN /lpf (0-5)
[2023-06-23] MEDS: Piperacil/Tazobactam 3.375 GM in 0.9% Normal Saline (50mL MB+) 50 ML IV (23:05)
[2023-06-23 23:41] VITALS: BP 122/68
[2023-06-24 05:00] VITALS: BP 138/78
[2023-06-24] MEDS: Piperacil/Tazobactam 3.375 GM in 0.9% Normal Saline (50mL MB+) 50 ML IV ×3 (05:24→21:15)
[2023-06-24] MEDS: Enoxaparin 40 MG/0.4 ML Syringe SC (05:25)
[2023-06-24 05:51] VITALS: BMI 30.2
[2023-06-24 07:16] VITALS: O2SAT 98
[2023-06-24 07:24] VITALS: BP 132/79; PULSE 64; RESP 16; TEMP 36.8; O2SAT 95
--- NOTE | 2023-06-24 08:23 | NURSING ---
aware of all current orders and that patient has pulled NG tube out at 3am. Dr Duran updated this morning on everything. Patient currently up in chair in room with therapy.
[2023-06-24 09:03] LABS: Hematocrit 32.2 % (40-54); Hemoglobin 10.4 g/dL (13.0-16.5); Mean Corp Hgb Conc 32.3 g/dL (32-36); Mean Corpuscular Hgb 31.4 pg (27.0-32.0); Mean Corpuscular Volume 97.3 fL (80-94); Mean Platelet Vol. 10.5 fl (6.2-12.0); Platelet Count 309 K/mm3 (150-450); RBC Distribution Width CV 13.1 % (11.6-14.6); RBC Distribution Width SD 46.6 fl (35.1-43.9); Red Blood Count 3.31 M/mm3 (4.6-6.2); White Blood Count 12.5 K/mm3 (4.4-11.0)
[2023-06-24] MEDS: Magnesium Citrate 300 ML PO (09:23)
[2023-06-24 09:50] LABS: Anion Gap 6 (5-15); BUN 17 mg/dL (7-18); BUN/Creat Ratio 17.2 RATIO (10-20); Calcium,Total 9.4 mg/dL (8.5-10.1); Chloride 101 mmol/L (98-107); Creatinine, Serum 0.99 mg/dL (0.70-1.30); EST Glomerular Filtration Rate 80 mL/min (>60); Est Glom Filt Rate - Afr Amer 96 mL/min (>60); Estimated Creatinine Clearance 69.43 ml/min; Glucose 106 mg/dL (74-106); Potassium 3.2 mmol/L (3.5-5.1); Sodium Level 134 mmol/L (136-145)
[2023-06-24] MEDS: Pantoprazole Sodium 40 MG in 0.9% Normal Saline (100mL MB+) 100 ML 330 MG IV (10:28)
[2023-06-24] MEDS: MorphINE SOLN 10 MG/0.5 ML PO.SYRINGE 5 MG SL/PO ×2 (10:29→21:09)
[2023-06-24] MEDS: 0.9% Saline Lock 10 ML Syringe IV (10:35)
[2023-06-24 12:48] LABS: Bedside Glucose 162 mg/dL (74-106)
[2023-06-24] MEDS: Magnesium Hydroxide 30 ML UDC 60 ML PO (17:17)
[2023-06-24] MEDS: Lactated Ringers 1,000 ML 125 ML IV (18:24)
[2023-06-24 22:00] VITALS: BP 149/86; PULSE 73; RESP 24; TEMP 37.1; O2SAT 95
[2023-06-25] MEDS: MorphINE SOLN 10 MG/0.5 ML PO.SYRINGE 5 MG SL/PO ×4 (03:06→20:42)
[2023-06-25 06:00] VITALS: BMI 31.3
[2023-06-25] MEDS: Piperacil/Tazobactam 3.375 GM in 0.9% Normal Saline (50mL MB+) 50 ML IV ×3 (06:04→21:03)
[2023-06-25] MEDS: 0.9% Saline Lock 10 ML Syringe IV ×2 (06:04→21:11)
--- NOTE | 2023-06-25 07:25 | NURSING ---
pt had not voided since the beginning of shift bladder scan completed and showed a value of 271cc. pt straight cathed as per order and value was 275cc and tolerated the procedure fair. pt's urine was sri colored with a strong odor and clear.
[2023-06-25] MEDS: Enoxaparin 40 MG/0.4 ML Syringe SC (08:11)
[2023-06-25] MEDS: Lactated Ringers 1,000 ML 125 ML IV (08:19)
[2023-06-25 08:22] VITALS: BP 144/96; PULSE 65; RESP 20; TEMP 36.9; O2SAT 94
[2023-06-25] MEDS: Pantoprazole Sodium 40 MG in 0.9% Normal Saline (100mL MB+) 100 ML 330 MG IV (10:49)
[2023-06-25 11:23] VITALS: O2SAT 93
[2023-06-25] MEDS: Electrolyte Solution/Peg's 4000 ML 2000 ML PO (11:43)
[2023-06-25] MEDS: Bisacodyl 5 MG Tablet 10 MG PO (15:35)
[2023-06-25] MEDS: Magnesium Citrate 300 ML 150 ML PO ×2 (15:36→16:07)
--- NOTE | 2023-06-25 16:08 | PCM.RU.PYE ---
Admission Information Primary Diagnosis:: Physical debility secondary to hip fracture/hemiarthroplasty Status Changes from Prescreening?: No changes Identified Actual Problem List:: Falls, Skin Intergrity, Pain, ALteration in Cmfrt, Cognitve Impr/Memory Loss, Depression, Bowel, Constipation, Alteration in Sleep, Mobility Impaired, Self Care Deficit and Fluid Change-Dehydration Potential Problem List:: DVT, Bleeding, Infection, UTI, Aspiration, Falls, Skin Integrity and Depression Risk of Complications DVT: LMWH and KIMBERLY Hose Bleeding: Monitor Lab Values, Nursing to Teach Precautions for anti-coagulation therapy., Wound, if applicable, to be assessed every shift. and Stroke patients assessed for lethargy or change in status. Infection: Clinical Staff to Monitor for S/S of infection: and S/S of infection include fever, redness, warmth, etc. Urinary Tract Infection: Monitor for frequency, burning, discomfort, or incontinence. and Nursing will obtain urine sample for urinalysis and C&S when ordered. Aspiration: Clinical staff will monitor for coughing, drooling, congestion., Speech will evaluate swallowing and dsyphasia. and Nursing will monitor patient swallowing during meals. Falls: Patient will be evaluated for Fall Precautions and Patient will be placed on Fall Precautions as indicated per protocol. Skin Breakdown: Nursing will assess skin daily using assessment tool. and Nursing will place on Skin Breakdown Precautions as indicated. Pain: Clinical staff will assess patient's pain level per protocol., Medications will be given, if needed, and the pain level reassessed. and Other methods: Massage, distraction, decrease stimulus, etc. used PRN. Plan of Care Patient requires physician specializing in physical medicine and rehab oversight to provide close medical supervision of rehab issues including: Pain Management, Sleep Problems, Bowel and Bladder, Medical and co-morbidity Management, DVT prophylaxis, Rehabilitation Leadership and Coordination of treatment team Patient needs Physical Therapy: For a minimum of 1 hour and At least 5 out of 7 days Patient needs Physical Therapy to improve:: Mobility, Strengthening, Transfers, Stretching, ROM, Endurance, Stairs, Gait and Balance Patient needs Occupational Therapy: For a minimum of 1 hour and At least 5 out of 7 days Patient needs Occupational Therapy to improve ADL's incl.: Eating, Grooming, Bathing, Dressing, Toileting, Toilet transfers, Community Reintegration, Higher functioning activities, Household tasks, Adaptive Equipment, Splinting and Other activities as determined Patient requires speech therapy: For a minimum of 1 hour and At least 5 out of 7 days Patient requires speech therapy for: Swallowing, Cognition, Language Skills and Compensatory Strategies Patient requires 24/ Rehabilitation Nursing for: Pain Issues, Identifying and preventing risk factors, Monitoring and reporting current medical conditions, Assisting with ambulation, transfer, and all ADL's, Teaching patients about disease process and medications, Family teaching, Providing safe environment, Bowel and Bladder Issues, Skin integrity and Medication Management Patient needs Regulatory And Compliance Technician/ Case Management for: Discharge Planning, Arranging Home Equipment or Services and Family Interventions Patient needs Dietary and Nutrition Services for: Adequate Nutrition, Nutritional Supplements and Nutritional Education Goals Patient will remain: free from falls and or injury at time of discharge. Patient will perform bed mobility at: MOD I level of assist. Patient will complete transfers from bed to chair at: MOD I level of assist. Patient will ambulate: 50 feet (With wheeled walker at contact-guard assist/standby assist on various surfaces to allow patient to return home with the support of his .) Patient will complete upper body dressing at: MOD I level of assist. Patient will complete lower body dressing at: MOD I level of assist. Patient will complete toileting at: MOD I level of assist. Patient will perform bathing at: Standby Assist. (including transfer to the shower seat) Patient will complete grooming at: MOD I level of assist. Patient will complete home management skills at: MOD I level of assist. Patient will achieve: - (2 steps with 2 handrails to allow access to his home at contact-guard assist.) Patient will have pain level of: of 3 or less Patient's skin will: remain intact Patient will receive: adequate nutrition. Discharge Planning Pt Prognosis for Sig. Practical Improv. w/in Reasonable Time: Good Estimated Length of stay (days): 21 Anticipated D/C Destination: Retirement Facility (Has become increasingly debilitated after transfer to TCU due to COVID, fall, hip fracture and intramedullary nailing of femur. Will likely need SNF [facility] [place] from rehab again. ) Was Preadmission Assessment Accurate?: Yes
--- NOTE | 2023-06-25 16:10 | PN_ITS ---
Subjective Subjective Zosyn day #3 for suspected Abd source of infection, possibly translocation of bacteria due to severe colonic dilatation. Afebrile VSS Maintaining appropriate oxygen saturation on RA but, he is on O2? Oral intake - clear liquids only Discussed with nursing - He had Mag citrate yesterday and MOM 60 cc and a enema and no results. We ordered Golytely today but, he refuses to drink it. Reviewed the PT/OT/ST notes Medication list reviewed. All lab drawn this morning was personally reviewed. The white blood cell count is down to 12.5 from 17.1. Hemoglobin is 10.4 which is down from 11.5 yesterday. Platelets are within normal limits. Sodium is up to 134 from 132. Potassium is low at 3.2. Serum bicarb is normal and the BUN is down to 17 with IV hydration with a creatinine of 0.99 which is down from 1.37 on 06/23/2023. A UA done on 06/23/2023 showed 25-50 hyaline casts with no white blood cells and no red blood cells. There were positive urine ketones likely secondary to starvation ketosis. He is c/o pain in the RLQ of the abdomen. Denies nausea and has had no vomiting. He is not having eructation and he tells me that he is not passing any flatus. He last had a colonoscopy 4 years ago. He denies CP, SOB, dysuria, calf pain. Objective Data Objective Data Vital Signs: Vital Signs Temp Pulse Resp BP Pulse Ox O2 Del Method O2 Flow Rate 98.5 F 65 20 H 144/96 H 93 Nasal Cannula 2 06/25/23 08:22 06/25/23 08:22 06/25/23 08:22 06/25/23 08:22 06/25/23 11:23 06/25/23 11:23 06/25/23 11:23 Oxygen Flow Rate (L/min) 2 Oxygen Delivery Method Nasal Cannula Weight: 212 lb 1 oz Body Mass Index (BMI) 31.3 Intake & Output: Intake and Output for Last 24 Hours 06/23/23 06/24/23 06/25/23 23:59 23:59 23:59 Intake Total 1770 / 1770 1560 / 1560 1430 / 1430 Output Total 2250 / 2250 275 / 275 Balance -480 / -480 1560 / 1560 1155 / 1155 Lab / Micro Data 06/24/23 07:46 06/26/23 05:20 Micro: Microbiology 06/23/23 20:15 Urine, Catheterized Urine Culture - Preliminary Culture exhibits no growth. Physical Exam Const alert Constitutional Narrative: He looks better than at admission. He no longer has that yellow waxy appearance and he is more alert. He has some color in his cheeks today. General Appearance: cooperative Resp clear to auscultation bilaterally Cardio regular rate, regular rhythm and no gallops GI GI Narrative: Marked distension. High pitched tinkling BS's. Firm to palpation. No guarding with palpation. No burping or flatus when I am in the room.......nothing in the rectal vault. Extremity no calf tenderness General Extremity: Negative for edema Skin General Skin Exam: no breakdown Rashes: no rashes Neuro Neuro Narrative: Talking less than he did at the last admission to rehab and more confused at t imes........that being said he did have COVID and then he fell and broke the hip while on TCU. Psych Appearance: appropriate Assessment & Plan Assessment/Plan (1) Physical debility: (2) Fall: QUALIFIERS: Encounter type: initial encounter Qualified Code(s): W19.XXXA - Unspecified fall, initial encounter (3) Closed fracture of neck of right femur: QUALIFIERS: Encounter type: initial encounter Qualified Code(s): S72.001A - Fracture of unspecified part of neck of right femur, initial encounter for closed fracture (4) Status post right shoulder hemiarthroplasty: (5) ABLA (acute blood loss anemia): (6) Leukocytosis: QUALIFIERS: Leukocytosis type: unspecified Qualified Code(s): D72.829 - Elevated white blood cell count, unspecified (7) Toxic encephalopathy: (8) COVID-19: (9) Ischemic cardiomyopathy: (10) Coronary artery disease: (11) History of implantable cardioverter-defibrillator (ICD) placement: (12) Alcohol abuse: (13) Depression: (14) Atrial fibrillation: QUALIFIERS: Atrial fibrillation type: paroxysmal Qualified Code(s): I48.0 - Paroxysmal atrial fibrillation (15) Overactive bladder: (16) Hypertension: QUALIFIERS: Hypertension type: primary hypertension Qualified Code(s): I10 - Essential (primary) hypertension (17) GERD (gastroesophageal reflux disease): (18) Vertebral fracture: QUALIFIERS: Encounter type: subsequent encounter (19) Non-rheumatic mitral regurgitation: PLAN: Plan 1. Continue therapy 2. Give another 300 cc of magnesium citrate today +10 mg of Dulcolax tablets. 3. Fleets enema at 8 PM 4. BMP in the AM 5. supplement potassium 6. If no BM by tomorrow will consult Dr. Borges........he may have a stenotic colon lesion causing partial obstruction. Charges/Coding Visit Charges Inpatient E&M: 88110 Subs Hosp L2
[2023-06-25] MEDS: Fleet Enema 1 ML RC (19:35)
[2023-06-25 21:30] VITALS: PULSE 83; RESP 14; O2SAT 97
[2023-06-25 22:00] VITALS: BP 133/62; PULSE 83; RESP 14; TEMP 36.8; O2SAT 97
[2023-06-26] MEDS: MorphINE SOLN 10 MG/0.5 ML PO.SYRINGE 5 MG SL/PO ×3 (01:40→19:39)
[2023-06-26] MEDS: Enoxaparin 40 MG/0.4 ML Syringe SC (05:30)
[2023-06-26] MEDS: Piperacil/Tazobactam 3.375 GM in 0.9% Normal Saline (50mL MB+) 50 ML IV ×3 (05:30→22:09)
[2023-06-26 06:44] LABS: Anion Gap 4 (5-15); BUN 19 mg/dL (7-18); BUN/Creat Ratio 22.7 RATIO (10-20); Calcium,Total 9.4 mg/dL (8.5-10.1); Chloride 104 mmol/L (98-107); Creatinine, Serum 0.84 mg/dL (0.70-1.30); EST Glomerular Filtration Rate 96 mL/min (>60); Est Glom Filt Rate - Afr Amer 117 mL/min (>60); Estimated Creatinine Clearance 81.83 ml/min; Glucose 97 mg/dL (74-106); Potassium 3.7 mmol/L (3.5-5.1); Sodium Level 138 mmol/L (136-145)
[2023-06-26 07:36] VITALS: BP 144/79; PULSE 66; RESP 18; TEMP 37; O2SAT 97
[2023-06-26] MEDS: 0.9% Saline Lock 10 ML Syringe IV ×2 (09:07→14:24)
[2023-06-26 10:00] VITALS: O2SAT 96
[2023-06-26] MEDS: Pantoprazole Sodium 40 MG in 0.9% Normal Saline (100mL MB+) 100 ML 330 MG IV (10:38)
[2023-06-26] MEDS: Tamsulosin HCl 0.4 MG Capsule PO (11:07)
[2023-06-26 12:38] VITALS: O2SAT 90
[2023-06-26 12:56] VITALS: BMI 32.1
[2023-06-26 13:16] LABS: Pathologist Review Reviewed
--- NOTE | 2023-06-26 13:29 | CASEMGMT ---
Social Work IDT met with patient and for Team meeting. Discussed patient's progress in PT/OT/ST/SN. Pt is currently on O2, IV ATB and needing total assist in several areas, cognition has declined as well. Educated to Medicare approval of 18 days with DC 07/10. Educated to 19 used days in SNF stay. Provided verbal support to pt and for ongoing medical changes since original RU stay. Will ReTeam. SW to continue to follow for DC planning. Mis Edge, PH[employer]GR[employer]
--- NOTE | 2023-06-26 16:37 | EX.PCM.CON.G ---
HPI Consult Data Date of Consult: 06/26/23 HPI Narrative Reason for Consultation: ileus HPI Narrative: AMANDA HERNANDEZ, is a 72 M with a past medical history hypothyroidism, diverticular disease, Pancreatic lesion and h/o adenomatous polyps ( on 3 to 4 year surviallence colonoscopy) with last colonoscopy 4 years ago. He had recent admission to acute rehab from 05/22/23 to 05/31/23 for failure to thrive after a fall resulting in a vertebral compression fx/Kyphoplasty. He also recently got over a COVID infection. On 06/19/23 he was sent from TCU to the ED were consistent with a R femoral neck fracture. He was taken to the OR on 06/21/23 for right hip hemiarthroplasty On 06/22/23 he was transferred to the acute inpt rehab unit at [facility] for 3 hours of therapy daily to restore function at or near his level prior to the initial fall resulting in a vertebral compression fx. Upon transfer he was noted to have a distended abdomen. KUB displayed Nonspecific bowel distention.. There is no demonstrated free abdominal air. The visualized liver, spleen and kidneys are grossly normal in size and morphology. An NG tube was placed for decompression and a CT scan of the abdomen and pelvis was ordered. Findings from the CT scan: No evidence for small bowel obstruction or pneumoperitoneum.. Diffusely distended colon to the level of the sigmoid of indeterminate etiology possibly representing ileus although focal obstructing lesion cannot be entirely excluded. Colonoscopy or Gastrografin enema would be helpful for further evaluation if clinically indicated [facility] Medical History (Updated 06/26/23 @ 16:[address] Fontenot Friend, DO) Adult failure to thrive Alcoholism Anxiety and depression Aphonia Atherosclerotic heart disease of havasupai coronary artery without angina pectoris Bifascicular block BPH (benign prostatic hyperplasia) Bradycardia Cardiac arrest with ventricular fibrillation Congestive heart failure (CHF) CVA (cerebral vascular accident) Dysphagia Dyspnea on exertion Essential hypertension Fatigue Former smoker GERD (gastroesophageal reflux disease) History of tracheal stenosis Hyperlipidemia Hypertension Hypothyroidism ICD (implantable cardioverter-defibrillator) in place Ischemic cardiomyopathy Low back pain Myocardial infarct Non-rheumatic mitral regurgitation Parkinsonism due to drugs Right bundle branch block Syncope Trigeminal neuralgia Home Medications atorvastatin 40 mg tablet 40 mg PO .HS cholesterol 04/05/18 [History Last Taken 06/21/23] nitroglycerin 0.4 mg sublingual tablet 0.4 mg sublingual Q5-15M PRN pain 04/05/18 [History Last Taken Unknown] mirtazapine 30 mg tablet (Remeron) 30 mg PO .HS SLEEP 09/26/18 [History Last Taken 06/21/23] omeprazole 20 mg tablet,delayed release 20 mg PO DAILY reflux 09/26/18 [History Last Taken 06/22/23] potassium chloride 10 mEq tablet,extended release 20 meq PO BID supplement 11/18/19 [History Last Taken 06/22/23] aspirin 81 mg tablet,delayed release 81 mg PO QDAY heart health 02/01/22 [History Last Taken 06/22/23] amiodarone 200 mg tablet 100 mg (1/2 x 200 mg) PO QDAY heart rate #90 tabs 08/08/22 [Rx Last Taken 06/22/23] duloxetine 60 mg capsule,delayed release 60 mg PO DAILY mental health 03/21/23 [History Last Taken 06/22/23] furosemide 40 mg tablet 40 mg PO DAILY diuretic 03/21/23 [History Last Taken 06/22/23] levothyroxine 25 mcg tablet 50 mcg PO .Sa/Reynolds thyroid 03/21/23 [History Last Taken Unknown] levothyroxine 25 mcg tablet (Euthyrox) 25 mcg PO .M-F thyroid 03/21/23 [History Last Taken 06/22/23] mirabegron 50 mg tablet,extended release 24 hr (Myrbetriq) 50 mg PO DAILY BLADDER 05/19/23 [History Last Taken 06/22/23] acetaminophen 500 mg capsule 1,000 mg PO Q8H PRN PRN Pain 1-10 05/22/23 [History Last Taken 06/22/23] metolazone 2.5 mg tablet 2.5 mg PO DAILY PRN FLUID RETENTION 05/22/23 [History Last Taken Unknown] carvedilol 3.125 mg tablet 3.125 mg PO BID BP #180 tabs 06/07/23 [Rx Last Taken 06/22/23] losartan 50 mg tablet 50 mg PO DAILY BP #60 tabs 06/07/23 [Rx Last Taken 06/22/23] tamsulosin 0.4 mg capsule 0.4 mg PO DAILY retention 06/07/23 [History Last Taken 06/22/23] enoxaparin 40 mg/0.4 mL subcutaneous syringe (Lovenox) 40 mg (0.4 mL) subcut DAILY prophylactic #4 mL 06/22/23 [Rx Last Taken 06/22/23] oxycodone 5 mg tablet 2.5 mg (1/2 x 5 mg) PO Q6H PRN PRN Pain Score 6-10 #0 tabs 06/22/23 [Rx Last Taken 06/22/23] Allergy/AdvReac Type Severity Reaction Status Date / Time lisinopril AdvReac cough Verified 06/07/23 14:19 Family History Mother Heart disease Cancer breast CAD (coronary artery disease) Breast cancer Father Colon cancer Sister Breast cancer Rheumatoid arthritis Surgical History (Updated 06/23/23 @ 17:[address] 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 Admits to 8-9 beers a day at the present time. substance use type: does not use caffeine: No ROS Review of Systems ROS Unobtainable: other Details: He is not very verbal today and actually seems obtunded. Not sure how reliable the ROS is today. Constitutional Constitutional: Reports fatigue and weakness Eyes Eyes: Denies change in vision ENT HEENT: Reports dizziness and other Details: nursing reports he is pocketing his medications. ; Denies nasal discharge, odynophagia or sinus pain Cardiovascular Cardiovascular: Reports lightheadedness and nausea Respiratory/Chest Respiratory/Chest: Denies productive cough, restlessness or shortness of breath at rest Gastrointestinal Gastrointestinal: Reports abdominal pain, bloating, change in bowel habits, constipation, dyspepsia and nausea; Denies diarrhea Musculoskeletal Musculoskeletal: Reports back pain, difficulty walking, joint pain and muscle weakness Integumentary Integumentary: Denies rash Neurologic Neurologic: Reports weakness; Denies headache(s) or restless legs Psychiatric Psychiatric: Reports depression and other Details: 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 ; Denies anxiety, auditory hallucinations or hallucinations Hematologic/Lymphatic Hematologic/Lymphatic: Reports easy bleeding and easy bruising Allergic/Immunologic Allergic/Immunologic: Denies asthma Physical Exam Const alert and no apparent distress Neuro oriented x3 Sensorium / Orientation: awake and alert Psych affect normal Lab / Micro Data 06/24/23 07:46 06/26/23 05:20 Labs: Laboratory Results - last 24 hr 06/23/23 18:41: Diff Path Review Reviewed 06/26/23 05:20: Sodium 138, Potassium 3.7, Chloride 104, Carbon Dioxide 30.0, Anion Gap 4 L, BUN 19 H, Creatinine 0.84, Estim Creat Clear Calc 81.83, Est GFR (MDRD) Af Amer 117, Est GFR (MDRD) Non-Af 96, BUN/Creatinine Ratio 22.7 H, Glucose 97, Calcium 9.4 Micro: Microbiology 06/23/23 20:15 Urine, Catheterized Urine Culture - Final Culture exhibits no growth. Assessment & Plan Assessment/Plan (1) Ileus: PLAN: Plan He likely has colonic ileus with elements of colonic pseudoobstruction and dilation of the colon. He should undergo flexible sigmoidoscopy with rectal tube placement and possible decompression colonoscopy. Patient also have his last Lasix is possible as it can drive the colon and lead to worsening colonic pseudoobstruction in a patient that is immobile and on narcotic medications. Decompressive colonoscopy versus sigmoidoscopy with rectal tube placement and successful and he will need to be on a regimen to prevent reoccurrence. That would likely include agents eval allow for successful contraction of the colon with osmotic laxative, chloride inhibitor such as lubiprostone or prucalopride and possibly a constant rectal tube while he is in bed for an extended period of time. He may also need Prostigmin subcutaneously to prevent worsening colonic pseudoobstruction or recurrent colonic pseudoobstruction. Charges/Coding Visit Charges Inpatient E&M: 60862 Init Hosp L3
--- NOTE | 2023-06-26 17:43 | PCM.PROGNOTE ---
Subjective Subjective Darrell was seen on team rounds today. His Romy was present in the room for team rounds. All questions were answered to their satisfaction. Afebrile VSS Maintaining appropriate oxygen saturation on RA -90% today. It is likely that the severe abdominal distention is compromising diaphragmatic function and his ability to to take deep breaths. Oxygen has been applied. Oral intake -he is still on clear liquids. Discussed with nursing - No results with MOM, MAg Citrate, Dulcolax supp, Dulcolax tab and enema yesterday. Rectal reveals nothing in the rectal vault. He has good sphincter tone. Reviewed the PT/OT/ST notes Medication list reviewed. All lab from this morning was personally reviewed. Sodium is now normal at 138 and the potassium is up to 3.7. The BUN is 19 and his creatinine is stable at 0.84. The BUNs/creatinine ratio is elevated at 22.7. Calcium is normal. Darrell is again complaining of right lower quadrant pain. His abdomen remains very distended. He denies eructation and tells me he is not passing any flatus. He has not had a bowel movement in several days. He denies nausea and he has not had an emesis. He denies cough, chest pain, shortness of breath at rest, palpitations, dysuria and calf tenderness. He is not talking much and prefers to make hand gestures to answers questions when he can.......I think he is embarrassed about his halting speech, stuttering and trouble with word finding. Renetta tells me that in 2018 he had bypass surgery and it did not go well. 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 He was trached and had to go to an LTAC to be weaned from the vent. He developed tracheal stenosis and later had a surgery to correct this but he still has ALEXANDER. His is worried about the MRI of his back for back pain. He has not had an MRI and she feels he should so we can identify why he has back pain. He recently fell and sustained vertebral compression fractures and had a Kyphoplasty. He has no radicular pain in his legs and she thinks the weakness in his legs is due to something wrong with his back. I feel the weakness in his legs is due to alcoholism and sitting too much with decreased activity. He did get stronger when he was in rehab but with COVID, then a fall with hip fracture, then insertion of an intramedullary tricia in the femur he has decompensated again. I do not think the MRI is a priority at this time and it can be done as an OP. Objective Data Objective Data Vital Signs: Vital Signs Temp Pulse Resp BP Pulse Ox O2 Del Method O2 Flow Rate 98.6 F 66 18 144/79 H 90 Room Air 2 06/26/23 07:36 06/26/23 07:36 06/26/23 07:36 06/26/23 07:36 06/26/23 12:38 06/26/23 12:38 06/26/23 10:00 Oxygen Flow Rate (L/min) 2 Oxygen Delivery Method Room Air Weight: 218 lb 0.595 oz Body Mass Index (BMI) 32.1 Intake & Output: Intake and Output for Last 24 Hours 06/24/23 06/25/23 06/26/23 23:59 23:59 23:59 Intake Total 1560 / 1560 2750 / 2750 2550 / 2550 Output Total 275 / 275 Balance 1560 / 1560 2475 / 2475 2550 / 2550 Lab / Micro Data 06/24/23 07:46 06/26/23 05:20 Labs: Laboratory Results - last 24 hr 06/23/23 18:41: Diff Path Review Reviewed 06/26/23 05:20: Sodium 138, Potassium 3.7, Chloride 104, Carbon Dioxide 30.0, Anion Gap 4 L, BUN 19 H, Creatinine 0.84, Estim Creat Clear Calc 81.83, Est GFR (MDRD) Af Amer 117, Est GFR (MDRD) Non-Af 96, BUN/Creatinine Ratio 22.7 H, Glucose 97, Calcium 9.4 Micro: Microbiology 06/23/23 20:15 Urine, Catheterized Urine Culture - Final Culture exhibits no growth. Physical Exam Const alert Constitutional Narrative: makes good eye contact with me. He has good color in his face today and he is more alert than at admission. He has been able to do therapy. General Appearance: cooperative HEENT head/scalp atraumatic HEENT Narrative: MM are dry but, they are better than at admission to rehab since he has been hydrated. No evidence of thrush. Mouth: dry mucous membranes Resp normal respiratory effort, normal air movement and clear to auscultation bilaterally Effort and Inspection: Negative for tachypneic or labored Cardio regular rate, regular rhythm and no gallops Cardio Narrative: No ectopy GI GI Narrative: Markedly distended and firm to palpation. No guarding with palpation but complains of pain in the right lower quadrant. Bowel sounds remain high-pitched and tinkling. Denies eructation and tells me he is passing no flatus. He has not had a bowel movement in several days now. There is no pitting edema in the flanks. Extremity no calf tenderness General Extremity: Negative for edema Skin General Skin Exam: no breakdown Rashes: no rashes Psych cooperative Assessment & Plan Assessment/Plan (1) Physical debility: (2) Fall: QUALIFIERS: Encounter type: initial encounter Qualified Code(s): W19.XXXA - Unspecified fall, initial encounter (3) Closed fracture of neck of right femur: QUALIFIERS: Encounter type: initial encounter Qualified Code(s): S72.001A - Fracture of unspecified part of neck of right femur, initial encounter for closed fracture (4) Status post right shoulder hemiarthroplasty: (5) ABLA (acute blood loss anemia): (6) Leukocytosis: QUALIFIERS: Leukocytosis type: unspecified Qualified Code(s): D72.829 - Elevated white blood cell count, unspecified (7) Toxic encephalopathy: (8) COVID-19: (9) Ischemic cardiomyopathy: (10) Coronary artery disease: (11) History of implantable cardioverter-defibrillator (ICD) placement: (12) Alcohol abuse: (13) Depression: (14) Atrial fibrillation: QUALIFIERS: Atrial fibrillation type: paroxysmal Qualified Code(s): I48.0 - Paroxysmal atrial fibrillation (15) Overactive bladder: (16) Hypertension: QUALIFIERS: Hypertension type: primary hypertension Qualified Code(s): I10 - Essential (primary) hypertension (17) GERD (gastroesophageal reflux disease): (18) Vertebral fracture: QUALIFIERS: Encounter type: subsequent encounter (19) Non-rheumatic mitral regurgitation: (20) Ileus: (21) Hypothyroidism: QUALIFIERS: Hypothyroidism type: acquired Qualified Code(s): E03.9 - Hypothyroidism, unspecified (22) Parkinsonism due to drugs: (23) Hypokalemia: (24) 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 He had a consult at [facility] and they were told it was not cancer........Renetta tells me that he had an endoscopy at [facility] and a bx she thinks. She can not recall the name of the doctor they saw and it was several years ago. (27) Diverticulosis: (28) History of CVA (cerebrovascular accident): PLAN: Plan 1. Continue therapy 2. Dr. Borges was consulted and I was present in the room while he was doing his consult. He feels that Darrell likely has colonic ileus and needs to be decompressed with a rectal tube/washout/sigmoidoscopy and this has been scheduled for tomorrow. 3. Will try and get records from [facility] about the pancreatic mass. 4. MRI as an OP. He has no radicular pain in the legs so I am doubtful he has spinal stenosis of significant foraminal stenosis. 5. Will need follow up on pancreatic mass. Charges/Coding Visit Charges Inpatient E&M: 63489 Subs Hosp L2
[2023-06-26 19:43] VITALS: BP 132/79; PULSE 60; RESP 18; TEMP 36.7; O2SAT 96
[2023-06-26 20:00] VITALS: PULSE 62; O2SAT 2
[2023-06-26] MEDS: 0.9% Normal Saline (250mL Bag) 250 ML 15 ML IV (22:09)
[2023-06-27] VITALS (8 sets, daily range): BP systolic 127–143; BP diastolic 61–90; PULSE 60–64; RESP 18–20; TEMP 36.6–36.8; O2SAT 96–100; BMI 33.3
[2023-06-27] MEDS: Enoxaparin 40 MG/0.4 ML Syringe SC (05:32)
[2023-06-27] MEDS: Piperacil/Tazobactam 3.375 GM in 0.9% Normal Saline (50mL MB+) 50 ML IV ×2 (05:34→20:33)
[2023-06-27] MEDS: MorphINE SOLN 10 MG/0.5 ML PO.SYRINGE 5 MG SL/PO ×3 (05:51→20:37)
[2023-06-27] MEDS: Pantoprazole Sodium 40 MG in 0.9% Normal Saline (100mL MB+) 100 ML 330 MG IV (11:35)
--- NOTE | 2023-06-27 13:50 | NURSING ---
Down for GI procedure with Dr. Borges.
--- NOTE | 2023-06-27 13:53 | PN_ITS ---
Subjective Subjective sy day #5/ Afebrile VSS Maintaining appropriate oxygen saturation on RA Oral intake is limited to clear liquids until the abd can be decompressed which is scheduled for today with Dr. Borges. Discussed with nursing - no problems that need addressed Reviewed the PT/OT/ST notes - refused therapy today due to abd pain and fatigue. Medication list reviewed. Denies nausea/vomiting/eructation. He is complaining about diffuse abdominal pain today, worst in the right lower quadrant. He continues to deny passing any flatus. He denies cough, shortness of breath, chest pain, palpitations, lightheadedness, cephalgia, dysuria and calf tenderness. Objective Data Objective Data Vital Signs: Vital Signs Temp Pulse Resp BP Pulse Ox O2 Del Method O2 Flow Rate 97.9 F 61 18 143/61 H 98 Nasal Cannula 2 06/27/23 09:16 06/27/23 09:16 06/27/23 09:16 06/27/23 09:16 06/27/23 13:15 06/27/23 13:15 06/27/23 13:15 Oxygen Flow Rate (L/min) 2 Oxygen Delivery Method Nasal Cannula Weight: 225 lb 5 oz Body Mass Index (BMI) 33.3 Intake & Output: Intake and Output for Last 24 Hours 06/25/23 06/26/23 06/27/23 23:59 23:59 23:59 Intake Total 2750 / 2750 2675 / 2675 1110 / 1110 Output Total 275 / 275 Balance 2475 / 2475 2675 / 2675 1110 / 1110 Lab / Micro Data 06/28/23 05:07 06/28/23 05:07 Micro: Microbiology 06/23/23 20:15 Urine, Catheterized Urine Culture - Final Culture exhibits no growth. Physical Exam Const alert Constitutional Narrative: Sitting in the recliner and looks to be very uncomfortable. Not talking much.......mostly nodding and making hand gestures. When he does talk his speech is halting/stuttering. Good color in his face today. HEENT normocephalic Resp normal respiratory effort Resp Narrative: Few coarse crackles in the bases, likely secondary to atelectasis relating to abdominal distention and inability to take a deep breath. Decreased air entry in the bases. Effort and Inspection: Negative for tachypneic Cardio regular rate, regular rhythm, no murmurs and no gallops Cardio Narrative: No ectopy GI GI Narrative: Markedly distended and firm to palpation. No guarding with palpation but complains of pain in the right lower quadrant. Bowel sounds remain high-pitched and tinkling. Denies eructation and tells me he is passing no flatus. He has not had a bowel movement in several days now. There is no pitting edema in the flanks. Extremity no calf tenderness and no pedal edema Skin General Skin Exam: no breakdown Rashes: no rashes Neuro moves all extremities Neuro Narrative: Talking less than he did at the last admission to rehab and more confused at times........that being said he did have COVID and then he fell and broke the hip while on TCU. Assessment & Plan Assessment/Plan (1) Physical debility: (2) Fall: QUALIFIERS: Encounter type: initial encounter Qualified Code(s): W19.XXXA - Unspecified fall, initial encounter (3) Closed fracture of neck of right femur: QUALIFIERS: Encounter type: initial encounter Qualified Code(s): S72.001A - Fracture of unspecified part of neck of right femur, initial encounter for closed fracture (4) Status post right shoulder hemiarthroplasty: (5) ABLA (acute blood loss anemia): (6) Leukocytosis: QUALIFIERS: Leukocytosis type: unspecified Qualified Code(s): D72.829 - Elevated white blood cell count, unspecified (7) Toxic encephalopathy: (8) COVID-19: (9) Ischemic cardiomyopathy: (10) Coronary artery disease: (11) History of implantable cardioverter-defibrillator (ICD) placement: (12) Alcohol abuse: (13) Depression: (14) Atrial fibrillation: QUALIFIERS: Atrial fibrillation type: paroxysmal Qualified Code(s): I48.0 - Paroxysmal atrial fibrillation (15) Overactive bladder: (16) Hypertension: QUALIFIERS: Hypertension type: primary hypertension Qualified Code(s): I10 - Essential (primary) hypertension (17) GERD (gastroesophageal reflux disease): (18) Vertebral fracture: QUALIFIERS: Encounter type: subsequent encounter (19) Non-rheumatic mitral regurgitation: (20) Ileus: (21) Hypothyroidism: QUALIFIERS: Hypothyroidism type: acquired Qualified Code(s): E03.9 - Hypothyroidism, unspecified (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 Continue Therapy 2. Check a CMP, CBC with diff, mag and phos in the AM 3. Continue Zosyn for a total of 7 days. 4. awaiting him to be taken to endoscopy to decompress. Charges/Coding Visit Charges Inpatient E&M: 07861 Subs Hosp L2
[2023-06-27] MEDS: Lactated Ringers 1,000 ML 15 ML IV (14:01)
--- NOTE | 2023-06-27 16:15 | RAD_ITS ---
PROCEDURE: Rectal tube placement. DATE OF EXAMINATION: June 27, 2023. INDICATION: Male, 72 years old. Colon distention. FLUOROSCOPY TIME (if supplied): (42.2 seconds) minutes/seconds. 22.95 mGy. 4 images were submitted. RAD/Fluoroscopy 1 Hr or Less IMPRESSION: Fluoroscopy was provided for rectal tube placement. Electronically Signed: Mic Corona MD at 9:07 EDT ,
--- NOTE | 2023-06-27 17:29 | OP.CCLET_ITS ---
06/27/2023 Kaylin Hui Re : Colonoscopy procedure for Tio Watson Ez This procedure was performed on Tuesday, June 27, 2023. My impressions and recommendations are as follows: Impressions : - Stricture in the recto-sigmoid colon. Dilated. - Dilated in the descending colon, at the splenic flexure, in the transverse colon, at the hepatic flexure, in the ascending colon and in the cecum. - Stool in the entire examined colon. - Diverticulosis in the recto-sigmoid colon and in the sigmoid colon. - No specimens collected. Recommendations : - [facility]. - Full liquid diet today. - Continue present medications. - Ensure 3 times daily or 4 times daily - Azithromycin 500mg IV x 7 days - Linzess 145mcg per day was sent to the patients pharmacy - No repeat colonoscopy due to age. My findings are described in the full procedure note, which is enclosed. If I can be of further assistance, please feel free to contact me at . Sincerely, Po Borges, 06/27/2023 5:29:02 PM This report has been signed electronically.
--- NOTE | 2023-06-27 17:29 | OP.COLON_ITS ---
Patient Name: Tio Kinney Procedure Date: 06/27/2023 4:03 PM Date of : 1950 Age: 72 Procedure: Colonoscopy Indications: Generalized abdominal pain, Abnormal abdominal x-ray of the GI tract, Abnormal CT of the GI tract, Suspected megacolon Providers: Po Borges DO Medicines: Monitored Anesthesia Care Patient Profile: This is a 72 year old male. Refer to note in patient chart for documentation of history and physical. Last Colonoscopy: date unknown. Unable to locate last colonoscopy report. Complications: No immediate complications. Procedure: Pre-Anesthesia Assessment: - Prior to the procedure, a History and Physical was performed, and patient medications and allergies were reviewed. The patient is competent. The risks and benefits of the procedure and the sedation options and risks were discussed with the patient. All questions were answered and informed consent was obtained. Patient identification and proposed procedure were verified by the physician in the pre-procedure area. Mental Status Examination: alert and oriented. Airway Examination: normal oropharyngeal airway and neck mobility. Respiratory Examination: clear to auscultation. CV Examination: normal. Prophylactic Antibiotics: The patient does not require prophylactic antibiotics. Prior Anticoagulants: The patient has taken no anticoagulant or antiplatelet agents. ASA Grade Assessment: III - A patient with severe systemic disease. After reviewing the risks and benefits, the patient was deemed in satisfactory condition to undergo the procedure. The anesthesia plan was to use monitored anesthesia care (MAC). Immediately prior to administration of medications, the patient was re-assessed for adequacy to receive sedatives. The heart rate, respiratory rate, oxygen saturations, blood pressure, adequacy of pulmonary ventilation, and response to care were monitored throughout the procedure. The physical status of the patient was re-assessed after the procedure. After I obtained informed consent, the scope was passed under direct vision. Throughout the procedure, the patient's blood pressure, pulse, and oxygen saturations were monitored continuously. The colonoscope was introduced through the anus and advanced to the cecum, identified by appendiceal orifice and ileocecal valve. The colonoscopy was performed without difficulty. The patient tolerated the procedure well. The quality of the bowel preparation was poor because she did not prep for the prpcedure. Scope In: 4:28:04 PM Scope Withdrawal Time 0 hours 31 minutes 14 seconds Scope Out: 5:04:34 PM Total Procedure Duration Time 0 hours 36 minutes 30 seconds Findings: The perianal and digital rectal examinations were normal. A benign-appearing, intrinsic severe stenosis measuring 3 cm (in length) x 6 mm (inner diameter) was found in the recto-sigmoid colon and was traversed after dilation. A TTS dilator was passed through the scope. Dilation with a 15 mm colonic balloon dilator was performed under fluoroscopic guidance. The dilation site was examined and showed moderate improvement in luminal narrowing. Estimated blood loss was minimal. The lumen of the descending colon, splenic flexure, transverse colon, hepatic flexure, ascending colon and cecum was significantly dilated. Extensive amounts of stool was found in the entire colon, precluding visualization. A few small-mouthed diverticula were found in the recto-sigmoid colon and sigmoid colon. Decompression of the volvulus was attempted and was successful, with complete decompression achieved. Following the maneuver, a tube was placed to maintain the decompression. Estimated blood loss was minimal. Impression: - Stricture in the recto-sigmoid colon. Dilated. - Dilated in the descending colon, at the splenic flexure, in the transverse colon, at the hepatic flexure, in the ascending colon and in the cecum. - Stool in the entire examined colon. - Diverticulosis in the recto-sigmoid colon and in the sigmoid colon. - No specimens collected. Recommendation: - [facility]. - Full liquid diet today. - Continue present medications. - Ensure 3 times daily or 4 times daily - Azithromycin 500mg IV x 7 days - Linzess 145mcg per day was sent to the patients pharmacy - No repeat colonoscopy due to age. Procedure Code(s): --- Professional --- 24195, Colonoscopy, flexible; with decompression (for pathologic distention) (eg, volvulus, megacolon), including placement of decompression tube, when performed 80880, Colonoscopy, flexible; with transendoscopic balloon dilation 80368, 26, Intraluminal dilation of strictures and/or obstructions (eg, esophagus), radiological supervision and interpretation CPT copyright 2021 [employer] [place] [employer]. All rights reserved. The codes documented in this report are preliminary and upon washer repairman review may be revised to meet current compliance requirements. Po Borges DO 06/27/2023 5:29:02 PM This report has been signed electronically. Number of Addenda: 0 Note Initiated On: 06/27/2023 4:03 PM
--- NOTE | 2023-06-27 17:57 | NURSING ---
Report from PACU and patient to be returning to rehab unit. Patient placed with rectal tube and tolerated well. Renetta made aware.
--- NOTE | 2023-06-27 18:04 | NURSING ---
Back on unit for GI procedure. Pharmacy contacted regarding patient missing 1400 Zosyn dose. To chart against 1400 dose and give 2200 dose early at 2000. No additional dose needs to be added.
[2023-06-27] MEDS: Azithromycin 500 MG in Dextrose 5%-Water (250mL Bag) 250 ML 250 MG IV (18:30)
--- NOTE | 2023-06-27 18:46 | NURSING ---
Surgical dressing removed to right hip. No drainage noted. Incision well approximated with no redness. Some swelling noted to site.
[2023-06-27] MEDS: Potassium Chloride Oral Tablet 10 MEQ 20 MEQ PO (21:54)
[2023-06-27] MEDS: Atorvastatin Calcium 40 MG Tablet PO (22:17)
[2023-06-27] MEDS: Senna/Docusate Sodium 1 Tablet 2 TABLET PO (22:17)
[2023-06-27] MEDS: Mirtazapine 30 MG Tablet PO (22:17)
[2023-06-27] MEDS: Acetaminophen 500 MG Tablet 1000 MG PO (22:17)
[2023-06-27 22:39] LABS: Bedside Glucose 82 mg/dL (74-106)
[2023-06-28 05:42] LABS: Absolute Lymphocyte Count 1.03 X10^3/uL (0.83-4.51); Absolute Neutrophil Count 4.9 X10^3/uL (2.0-7.7); Basophil# 0.04 X10^3/uL; Basophil% 0.6 % (0-1); Eosinophil# 0.24 X10^3/uL; Eosinophils% 3.4 % (0-5); Hematocrit 30.3 % (40-54); Hemoglobin 9.6 g/dL (13.0-16.5); Lymphocyte # 1.03 X10^3/ul (0.83-4.51); Lymphocyte % 14.5 % (19-41); Mean Corp Hgb Conc 31.7 g/dL (32-36); Monocyte# 0.86 X10^3/uL; Monocyte% 12.1 % (0-10); NRBC Flagged by Analyzer 0 % (0-5); Neutrophil # 4.86 X10^3/uL (2.7-7.7); Neutrophil % 68.6 % (47-70); Platelet Count 349 K/mm3 (150-450); RBC Distribution Width CV 13.7 % (11.6-14.6); RBC Distribution Width SD 50.1 fl (35.1-43.9); White Blood Count 7.1 K/mm3 (4.4-11.0)
[2023-06-28] MEDS: 0.9% Saline Lock 10 ML Syringe IV ×2 (05:57→11:49)
[2023-06-28] MEDS: Piperacil/Tazobactam 3.375 GM in 0.9% Normal Saline (50mL MB+) 50 ML IV (05:57)
[2023-06-28 06:00] VITALS: BMI 33.4
[2023-06-28] MEDS: Enoxaparin 40 MG/0.4 ML Syringe SC (06:01)
[2023-06-28] MEDS: Levothyroxine 25 MCG TABLET PO (06:02)
[2023-06-28] MEDS: Acetaminophen 500 MG Tablet 1000 MG PO ×3 (06:02→20:43)
[2023-06-28 06:28] LABS: ALB/GLOB Ratio 0.6 RATIO (0.9-2.4); AST(SGOT) 23 U/L (15-37); Alanine Aminotransfer ALT/SGPT 24 U/L (16-61); Albumin, Serum 2.2 g/dL (3.2-5.0); Alkaline Phosphatase 102 U/L (45-117); Anion Gap 1 (5-15); BUN 14 mg/dL (7-18); BUN/Creat Ratio 16.4 RATIO (10-20); Calcium,Total 8.8 mg/dL (8.5-10.1); Chloride 105 mmol/L (98-107); Creatinine, Serum 0.85 mg/dL (0.70-1.30); EST Glomerular Filtration Rate 94 mL/min (>60); Est Glom Filt Rate - Afr Amer 114 mL/min (>60); Estimated Creatinine Clearance 80.87 ml/min; Globulin 3.5 g/dL (2.2-4.2); Glucose 82 mg/dL (74-106); Magnesium 2.4 mg/dL (1.6-2.6); Phosphorus 3.2 mg/dL (2.5-4.9); Potassium 4.5 mmol/L (3.5-5.1); Protein, Total 5.7 g/dL (6.4-8.2); Sodium Level 139 mmol/L (136-145)
[2023-06-28 07:35] VITALS: BP 138/64; PULSE 55; RESP 18; TEMP 36.8; O2SAT 95
[2023-06-28] MEDS: Amiodarone 200 MG Tablet 100 MG PO (08:08)
[2023-06-28] MEDS: Carvedilol 3.125 MG TABLET PO ×2 (08:09→15:57)
[2023-06-28] MEDS: Aspirin E.C. 81 MG Tablet PO (08:10)
[2023-06-28] MEDS: DULoxetine Hcl 60 MG Capsule PO (08:10)
[2023-06-28] MEDS: Losartan Potassium 50 MG Tablet PO (08:10)
[2023-06-28] MEDS: Furosemide 40 MG Tablet PO (08:11)
[2023-06-28] MEDS: Tamsulosin HCl 0.4 MG Capsule PO (08:11)
[2023-06-28] MEDS: Potassium Chloride Oral Tablet 10 MEQ 20 MEQ PO ×2 (08:11→20:42)
[2023-06-28] MEDS: Mirabegron 50 MG TAB.ER.24H PO (08:13)
[2023-06-28] MEDS: Senna/Docusate Sodium 1 Tablet 2 TABLET PO ×2 (08:16→20:42)
--- NOTE | 2023-06-28 10:36 | PCM.PROGNOTE ---
Subjective Subjective Afebrile VSS Maintaining appropriate oxygen saturation on RA Oral intake for breakfast was good with full liquids. He tolerated this well so he is being advanced to a cardiac soft diet. Discussed with nursing - no problems that need addressed Reviewed the PT/OT/ST notes Medication list reviewed. I reviewed Dr. Borges's report of colonoscopy yesterday. A benign-appearing, intrinsic severe stenosis measuring 3 cm in length and 6 mm in diameter was found in the rectosigmoid colon and was transversed following dilatation. The lumen of the descending colon, splenic flexure, transverse colon, hepatic flexure, ascending colon and cecum was significantly dilated with extensive amounts of stool in the entire colon. A few small mouth diverticuli were found in the rectosigmoid colon and sigmoid colon. Decompression of the volvulus was attempted and successful. Complete decompression was achieved. A tube was placed to maintain the decompression. All lab drawn this morning was personally reviewed. Hemoglobin has dropped to 9.6 and there was minimal blood loss with the colonoscopy. MCV is up to 101 so he is reticulating. White blood cell count is normal at 7.1. Platelets are within normal limits. Differential is unremarkable. Sodium is 139 and the potassium today is 4.5. Serum bicarb is mildly increased at 33 and the BUN is down to 14 with a stable creatinine at 0.85. Serum bicarb is likely increased due to the massive amount of stool/fluid removed from the colon yesterday during decompression. Magnesium and phosphorus are normal and the LFTs are normal. Darrell denies heartburn, eructation, nausea, vomiting, abdominal pain, lightheadedness, night sweats, chills, dysuria and calf tenderness. He also denies cough, shortness of breath and chest pain. He was sitting in the recliner when I entered the room with his legs elevated and his belly is flat. He did appear little pale but he was more alert today, appeared comfortable and he is talking more. We received a copy of the pancreatic biopsy done in 2015 at the [facility] (fine needle aspiration) and it was consistent with a low-grade neuroendocrine neoplasm. He was last seen in follow-up for the neuroendocrine tumor on April 21, 2023. The most recent CT scan of his abdomen showed the mass in the tail of the pancreas to be 2.1 cm and resection was recommended. The risk for malignancy significantly increases if the mass is greater than 2 cm. The initial mass in 2013 was measured at 1.2 cm and was found incidentally on a CT chest. Mikel and his Romy decided not to pursue surgery at the time of his last visit and he will have another CT scan in 6 months. Objective Data Objective Data Vital Signs: Vital Signs Temp Pulse Resp BP Pulse Ox O2 Del Method O2 Flow Rate 98.2 F 55 L 18 138/64 H 95 Nasal Cannula 2 06/28/23 07:35 06/28/23 07:35 06/28/23 07:35 06/28/23 07:35 06/28/23 07:35 06/28/23 09:39 06/28/23 09:39 Oxygen Flow Rate (L/min) 2 Oxygen Delivery Method Nasal Cannula Weight: 226 lb 6.636 oz Body Mass Index (BMI) 33.4 Intake & Output: Intake and Output for Last 24 Hours 06/26/23 06/27/23 06/28/23 23:59 23:59 23:59 Intake Total 2675 / 2675 3816 / 3816 580 / 580 Output Total 200 / 200 300 / 300 Balance 2675 / 2675 3616 / 3616 280 / 280 Lab / Micro Data 06/28/23 05:07 06/28/23 05:07 Labs: Laboratory Results - last 24 hr 06/27/23 22:20: POC Glucose 82 06/28/23 05:07: WBC 7.1, RBC 3.00 L, Hgb 9.6 L, Hct 30.3 L, MCV 101.0 H, MCH 32.0, MCHC 31.7 L, RDW Std Deviation 50.1 H, RDW Coeff of Elpidio 13.7, Plt Count 349, MPV 9.0, Immature Gran % (Auto) 0.800, Neut % (Auto) 68.6, Lymph % (Auto) 14.5 L, [place]orne % (Auto) 12.1 H, Eos % (Auto) 3.4, Baso % (Auto) 0.6, Absolute Neuts (auto) 4.9, Absolute Lymphs (auto) 1.03, Nucleated RBC % 0, Sodium 139, Potassium 4.5, Chloride 105, Carbon Dioxide 33.0 H, Anion Gap 1 L, BUN 14, Creatinine 0.85, Estim Creat Clear Calc 80.87, Est GFR (MDRD) Af Amer 114, Est GFR (MDRD) Non-Af 94, BUN/Creatinine Ratio 16.4, Glucose 82, Calcium 8.8, Phosphorus 3.2, Magnesium 2.4, Total Bilirubin 0.60, AST 23, ALT 24, Alkaline Phosphatase 102, Total Protein 5.7 L, Albumin 2.2 L, Globulin 3.5, Albumin/Globulin Ratio 0.6 L Micro: Microbiology 06/23/23 20:15 Urine, Catheterized Urine Culture - Final Culture exhibits no growth. Radiography Diagnostic Testing: Radiology Impression Fluoroscopy 06/27/23 16:15 IMPRESSION: Fluoroscopy was provided for rectal tube placement. Electronically Signed: Mic Corona MD at 9:07 EDT , Physical Exam Const alert and no apparent distress Constitutional Narrative: Sitting in the recliner at the Bedside and appears comfortable. He no longer has abd distension. He is talking more today. General Appearance: cooperative Neck supple Resp normal respiratory effort, normal air movement and clear to auscultation bilaterally Resp Narrative: Better air exchange in the bases today . No conversational dyspnea. Effort and Inspection: Negative for tachypneic or labored Cardio regular rate, regular rhythm, no murmurs and no gallops GI normal to inspection, nondistended, normoactive bowel sounds and soft to palpation GI Narrative: No guarding with palpation today. No masses and the abd is soft. Extremity no calf tenderness General Extremity: Negative for edema Skin General Skin Exam: no breakdown Rashes: no rashes Psych affect normal Appearance: appropriate Assessment & Plan Assessment/Plan (1) Physical debility: (2) Fall: QUALIFIERS: Encounter type: initial encounter Qualified Code(s): W19.XXXA - Unspecified fall, initial encounter (3) Closed fracture of neck of right femur: QUALIFIERS: Encounter type: initial encounter Qualified Code(s): S72.001A - Fracture of unspecified part of neck of right femur, initial encounter for closed fracture (4) Status post right shoulder hemiarthroplasty: (5) ABLA (acute blood loss anemia): (6) Leukocytosis: QUALIFIERS: Leukocytosis type: unspecified Qualified Code(s): D72.829 - Elevated white blood cell count, unspecified (7) Toxic encephalopathy: (8) COVID-19: (9) Ischemic cardiomyopathy: (10) Coronary artery disease: (11) History of implantable cardioverter-defibrillator (ICD) placement: (12) Alcohol abuse: (13) Depression: (14) Atrial fibrillation: QUALIFIERS: Atrial fibrillation type: paroxysmal Qualified Code(s): I48.0 - Paroxysmal atrial fibrillation (15) Overactive bladder: (16) Hypertension: QUALIFIERS: Hypertension type: primary hypertension Qualified Code(s): I10 - Essential (primary) hypertension (17) GERD (gastroesophageal reflux disease): (18) Vertebral fracture: QUALIFIERS: Encounter type: subsequent encounter (19) Non-rheumatic mitral regurgitation: (20) Ileus: (21) Hypothyroidism: QUALIFIERS: Hypothyroidism type: acquired Qualified Code(s): E03.9 - Hypothyroidism, unspecified (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 Continue therapy 2. Advance diet to soft diet, heart healthy 3. Discontinue Zosyn 4. Dr. Borges has written a prescription for Linzess that Lynne's Romy will shredder picker to be used as needed for constipation to prevent recurrence of partial bowel obstruction. 5. He will have another CT scan of the abdomen in late September 2023 or early October. If the tumor has increased in size again will need to revisit resection. 6. He will follow up with Dr. Borges following DC from rehab for the stenotic lesion in the sigmoid colon. 7. He has a MRI of his lumbar spine scheduled later this month (I believe the ) and then will follow up with Dr. Houston again. He is not having any radicular pain or myopathy so I doubt there is anything surgical to be done. Mostly he has pain localized to the back. Charges/Coding Visit Charges Inpatient E&M: 84837 Subs Hosp L2
[2023-06-28] MEDS: Pantoprazole Sodium 40 MG in 0.9% Normal Saline (100mL MB+) 100 ML 330 MG IV (11:48)
[2023-06-28] MEDS: Azithromycin 500 MG in Dextrose 5%-Water (250mL Bag) 250 ML 250 MG IV (12:33)
[2023-06-28 19:17] VITALS: BP 107/55; PULSE 52; RESP 14; TEMP 36.8; O2SAT 97
[2023-06-28] MEDS: Menthol/Lanolin/Calamine/Znox 113 GM Tube 1 APPLIC TOPICAL (20:40)
[2023-06-28] MEDS: Mirtazapine 30 MG Tablet PO (20:42)
[2023-06-28] MEDS: Atorvastatin Calcium 40 MG Tablet PO (20:42)
[2023-06-28 21:11] VITALS: PULSE 70; RESP 18; O2SAT 96
[2023-06-29] MEDS: Acetaminophen 500 MG Tablet 1000 MG PO ×3 (05:00→20:36)
[2023-06-29] MEDS: Levothyroxine 25 MCG TABLET PO (05:00)
[2023-06-29] MEDS: Enoxaparin 40 MG/0.4 ML Syringe SC (05:00)
[2023-06-29 06:00] VITALS: BMI 33.4
[2023-06-29 07:24] VITALS: BP 109/73; PULSE 88; RESP 18; TEMP 36.7; O2SAT 97
[2023-06-29] MEDS: Losartan Potassium 50 MG Tablet PO (08:05)
[2023-06-29] MEDS: Amiodarone 200 MG Tablet 100 MG PO (08:06)
[2023-06-29] MEDS: DULoxetine Hcl 60 MG Capsule PO (08:06)
[2023-06-29] MEDS: Tamsulosin HCl 0.4 MG Capsule PO (08:06)
[2023-06-29] MEDS: Furosemide 40 MG Tablet PO (08:06)
[2023-06-29] MEDS: Potassium Chloride Oral Tablet 10 MEQ 20 MEQ PO ×2 (08:06→20:37)
[2023-06-29] MEDS: Menthol/Lanolin/Calamine/Znox 113 GM Tube 1 APPLIC TOPICAL ×2 (08:07→20:44)
[2023-06-29] MEDS: Senna/Docusate Sodium 1 Tablet 2 TABLET PO ×2 (08:07→20:37)
[2023-06-29] MEDS: Aspirin E.C. 81 MG Tablet PO (08:07)
[2023-06-29] MEDS: Carvedilol 3.125 MG TABLET PO ×2 (08:07→16:15)
[2023-06-29] MEDS: Mirabegron 50 MG TAB.ER.24H PO (08:08)
[2023-06-29] MEDS: 0.9% Saline Lock 10 ML Syringe IV (08:14)
[2023-06-29] MEDS: Pantoprazole Sodium 40 MG in 0.9% Normal Saline (100mL MB+) 100 ML 330 MG IV (11:06)
[2023-06-29] MEDS: Azithromycin 500 MG in Dextrose 5%-Water (250mL Bag) 250 ML 250 MG IV (12:14)
--- NOTE | 2023-06-29 17:04 | NURSING ---
pt pulled out rectal tube. Dr Borges notified.
[2023-06-29 20:00] VITALS: PULSE 60; RESP 16; O2SAT 94
[2023-06-29 20:05] VITALS: BP 125/64; PULSE 60; RESP 16; TEMP 36.3; O2SAT 94
[2023-06-29] MEDS: Mirtazapine 30 MG Tablet PO (20:36)
[2023-06-29] MEDS: Atorvastatin Calcium 40 MG Tablet PO (20:36)
[2023-06-30] MEDS: 0.9% Saline Lock 10 ML Syringe IV ×3 (04:49→20:28)
[2023-06-30] MEDS: Levothyroxine 25 MCG TABLET PO (05:00)
[2023-06-30] MEDS: Enoxaparin 40 MG/0.4 ML Syringe SC (05:00)
[2023-06-30] MEDS: Acetaminophen 500 MG Tablet 1000 MG PO ×3 (05:00→20:20)
[2023-06-30] MEDS: Linacolotide 145 MCG CAPSULE PO (05:00)
[2023-06-30 06:00] VITALS: BMI 32.4
[2023-06-30] MEDS: Amiodarone 200 MG Tablet 100 MG PO (08:24)
[2023-06-30] MEDS: Carvedilol 3.125 MG TABLET PO ×2 (08:25→17:38)
[2023-06-30] MEDS: DULoxetine Hcl 60 MG Capsule PO (08:25)
[2023-06-30] MEDS: Potassium Chloride Oral Tablet 10 MEQ 20 MEQ PO ×2 (08:26→20:20)
[2023-06-30] MEDS: Aspirin E.C. 81 MG Tablet PO (08:26)
[2023-06-30] MEDS: Tamsulosin HCl 0.4 MG Capsule PO (08:26)
[2023-06-30] MEDS: Senna/Docusate Sodium 1 Tablet 2 TABLET PO ×2 (08:27→20:19)
[2023-06-30] MEDS: Mirabegron 50 MG TAB.ER.24H PO (08:27)
[2023-06-30] MEDS: Furosemide 40 MG Tablet PO (08:27)
[2023-06-30] MEDS: Menthol/Lanolin/Calamine/Znox 113 GM Tube 1 APPLIC TOPICAL ×2 (08:29→20:18)
[2023-06-30] MEDS: 0.9% Normal Saline (250mL Bag) 250 ML 320 ML IV (08:42)
[2023-06-30] MEDS: Pantoprazole Sodium 40 MG in 0.9% Normal Saline (100mL MB+) 100 ML 330 MG IV (08:42)
[2023-06-30] MEDS: traMADol 50 MG Tablet PO ×2 (09:14→17:37)
[2023-06-30 10:00] VITALS: BP 103/64; PULSE 55; RESP 18; TEMP 36.6; O2SAT 96
[2023-06-30] MEDS: Azithromycin 500 MG in Dextrose 5%-Water (250mL Bag) 250 ML 250 MG IV (10:08)
[2023-06-30 19:28] VITALS: BP 103/63; PULSE 53; RESP 18; TEMP 37; O2SAT 96
[2023-06-30 20:10] VITALS: PULSE 53; RESP 20; O2SAT 96
[2023-06-30] MEDS: Arthritis Pain Compound 60 CLICK TUBE TOPICAL (20:18)
[2023-06-30] MEDS: Mirtazapine 30 MG Tablet PO (20:19)
[2023-06-30] MEDS: Atorvastatin Calcium 40 MG Tablet PO (20:20)
[2023-07-01] MEDS: Arthritis Pain Compound 60 CLICK TUBE TOPICAL ×2 (05:54→21:04)
[2023-07-01] MEDS: Acetaminophen 500 MG Tablet 1000 MG PO ×3 (05:55→21:03)
[2023-07-01] MEDS: Linacolotide 145 MCG CAPSULE PO (05:55)
[2023-07-01] MEDS: Enoxaparin 40 MG/0.4 ML Syringe SC (05:55)
[2023-07-01] MEDS: Levothyroxine 50 MCG Tablet PO (05:56)
[2023-07-01] MEDS: traMADol 50 MG Tablet PO ×3 (05:58→18:50)
[2023-07-01 06:00] VITALS: BMI 32.6
[2023-07-01 06:07] VITALS: O2SAT 94
[2023-07-01 07:15] VITALS: BP 120/53; PULSE 66; RESP 16; TEMP 36.3; O2SAT 95
[2023-07-01] MEDS: Furosemide 40 MG Tablet PO (08:33)
[2023-07-01] MEDS: Potassium Chloride Oral Tablet 10 MEQ 20 MEQ PO ×2 (08:33→21:04)
[2023-07-01] MEDS: Senna/Docusate Sodium 1 Tablet 2 TABLET PO (08:34)
[2023-07-01] MEDS: Mirabegron 50 MG TAB.ER.24H PO (08:34)
[2023-07-01] MEDS: Aspirin E.C. 81 MG Tablet PO (08:34)
[2023-07-01] MEDS: Carvedilol 3.125 MG TABLET PO ×2 (08:34→17:06)
[2023-07-01] MEDS: 0.9% Saline Lock 10 ML Syringe IV ×2 (08:34→21:08)
[2023-07-01] MEDS: Amiodarone 200 MG Tablet 100 MG PO (08:34)
[2023-07-01] MEDS: Losartan Potassium 50 MG Tablet PO (08:34)
[2023-07-01] MEDS: Pantoprazole Sodium 40 MG in 0.9% Normal Saline (100mL MB+) 100 ML 330 MG IV (08:34)
[2023-07-01] MEDS: Tamsulosin HCl 0.4 MG Capsule PO (08:34)
[2023-07-01] MEDS: DULoxetine Hcl 60 MG Capsule PO (08:34)
[2023-07-01] MEDS: Menthol/Lanolin/Calamine/Znox 113 GM Tube 1 APPLIC TOPICAL ×2 (08:40→21:05)
[2023-07-01] MEDS: Azithromycin 500 MG in Dextrose 5%-Water (250mL Bag) 250 ML 250 MG IV (09:19)
[2023-07-01 21:00] VITALS: BP 120/68; PULSE 60; RESP 17; TEMP 37; O2SAT 95
[2023-07-01] MEDS: Atorvastatin Calcium 40 MG Tablet PO (21:04)
[2023-07-01] MEDS: Mirtazapine 30 MG Tablet PO (21:04)
[2023-07-02] MEDS: Arthritis Pain Compound 60 CLICK TUBE TOPICAL ×3 (05:11→21:39)
[2023-07-02] MEDS: Levothyroxine 50 MCG Tablet PO (05:13)
[2023-07-02] MEDS: Enoxaparin 40 MG/0.4 ML Syringe SC (05:13)
[2023-07-02] MEDS: Acetaminophen 500 MG Tablet 1000 MG PO ×3 (05:14→21:37)
[2023-07-02] MEDS: Linacolotide 145 MCG CAPSULE PO (05:15)
[2023-07-02 05:21] VITALS: BMI 32.6
[2023-07-02 06:10] VITALS: O2SAT 95
[2023-07-02 07:58] VITALS: BP 122/78; PULSE 55; RESP 16; TEMP 36.7; O2SAT 100
[2023-07-02] MEDS: Furosemide 40 MG Tablet PO (07:59)
[2023-07-02] MEDS: DULoxetine Hcl 60 MG Capsule PO (07:59)
[2023-07-02] MEDS: Amiodarone 200 MG Tablet 100 MG PO (07:59)
[2023-07-02] MEDS: Mirabegron 50 MG TAB.ER.24H PO (08:00)
[2023-07-02] MEDS: Tamsulosin HCl 0.4 MG Capsule PO (08:00)
[2023-07-02] MEDS: Losartan Potassium 50 MG Tablet PO (08:00)
[2023-07-02] MEDS: traMADol 50 MG Tablet PO ×2 (08:00→14:46)
[2023-07-02] MEDS: Aspirin E.C. 81 MG Tablet PO (08:00)
[2023-07-02] MEDS: Potassium Chloride Oral Tablet 10 MEQ 20 MEQ PO ×2 (08:00→21:39)
[2023-07-02] MEDS: Carvedilol 3.125 MG TABLET PO ×2 (08:02→16:20)
[2023-07-02] MEDS: Menthol/Lanolin/Calamine/Znox 113 GM Tube 1 APPLIC TOPICAL ×2 (08:10→21:42)
[2023-07-02] MEDS: 0.9% Saline Lock 10 ML Syringe IV (08:53)
[2023-07-02] MEDS: Pantoprazole Sodium 40 MG in 0.9% Normal Saline (100mL MB+) 100 ML 330 MG IV (08:53)
[2023-07-02] MEDS: Azithromycin 500 MG in Dextrose 5%-Water (250mL Bag) 250 ML 250 MG IV (09:38)
[2023-07-02] MEDS: Metolazone 2.5 MG Tablet PO (09:39)
[2023-07-02 20:01] VITALS: BP 137/58; PULSE 54; RESP 16; TEMP 35.7; O2SAT 97
[2023-07-02] MEDS: Mirtazapine 30 MG Tablet PO (21:38)
[2023-07-02] MEDS: Atorvastatin Calcium 40 MG Tablet PO (21:39)
[2023-07-03 05:25] VITALS: BMI 32.6
[2023-07-03] MEDS: Arthritis Pain Compound 60 CLICK TUBE TOPICAL ×3 (05:54→20:41)
[2023-07-03] MEDS: Enoxaparin 40 MG/0.4 ML Syringe SC (05:55)
[2023-07-03] MEDS: Acetaminophen 500 MG Tablet 1000 MG PO ×3 (05:55→20:43)
[2023-07-03] MEDS: Levothyroxine 25 MCG TABLET PO (05:55)
[2023-07-03] MEDS: Linacolotide 145 MCG CAPSULE PO (05:55)
[2023-07-03 08:03] VITALS: BP 132/58; PULSE 54; RESP 16; TEMP 36.7; O2SAT 99
[2023-07-03] MEDS: Carvedilol 3.125 MG TABLET PO ×2 (08:12→17:55)
[2023-07-03] MEDS: Amiodarone 200 MG Tablet 100 MG PO (08:12)
[2023-07-03] MEDS: traMADol 50 MG Tablet PO ×2 (08:17→10:24)
--- NOTE | 2023-07-03 08:24 | CASEMGMT ---
Social Work IDT met with patient and for Team meeting. Discussed patient's progress in PT/OT/ST/SN. Educated to Medicare approval of 18 days with DC 07/10. Pt has made progress but IDT recommending continued therapy in SNF. and pt would like TCU at [facility]. SW placed referral to TCU and pt is accepted. SW updated pt used 20/100 Medicare SNF days. SW encouraged to contact secondary insurance to ensure copay coverage as pt would admit on day 21, the start of copay days. expressed understanding. Plan: DC 07/10 to TCU, skilled GEOFF Corrigan
[2023-07-03] MEDS: Azithromycin 500 MG in Dextrose 5%-Water (250mL Bag) 250 ML 250 MG IV (09:31)
[2023-07-03] MEDS: 0.9% Saline Lock 10 ML Syringe IV ×2 (09:37→20:47)
[2023-07-03] MEDS: Furosemide 40 MG Tablet PO (09:40)
[2023-07-03] MEDS: Losartan Potassium 50 MG Tablet PO (09:40)
[2023-07-03] MEDS: Aspirin E.C. 81 MG Tablet PO (09:40)
[2023-07-03] MEDS: DULoxetine Hcl 60 MG Capsule PO (09:40)
[2023-07-03] MEDS: Pantoprazole Sodium 40 MG Tablet PO (09:40)
[2023-07-03] MEDS: Mirabegron 50 MG TAB.ER.24H PO (09:40)
[2023-07-03] MEDS: Tamsulosin HCl 0.4 MG Capsule PO (09:40)
[2023-07-03] MEDS: Menthol/Lanolin/Calamine/Znox 113 GM Tube 1 APPLIC TOPICAL ×2 (09:41→20:41)
[2023-07-03] MEDS: Potassium Chloride Oral Tablet 10 MEQ 20 MEQ PO ×2 (09:41→20:42)
[2023-07-03 10:00] VITALS: BMI 31.3
[2023-07-03 10:50] VITALS: BMI 31.3
--- NOTE | 2023-07-03 10:59 | NURSING ---
Pt weighed on both standing scale and Pt's built in bed scale (bed zeroed prior to get an accurate weight).
[2023-07-03] MEDS: traMADol 50 MG Tablet 100 MG PO (18:07)
[2023-07-03 19:22] VITALS: BP 115/61; PULSE 53; RESP 20; TEMP 36.6; O2SAT 93
--- NOTE | 2023-07-03 19:34 | PN_ITS ---
Subjective Subjective Patient seen, examined on Team Rounds. On 06/27/2023, Dr. Borges performed colonoscopy, dilated recto-sigmoid stricture. Patient's only complaint is right hip pain not controlled. Tramadol dose adjusted. Objective Data Objective Data Vital Signs: Vital Signs Temp Pulse Resp BP Pulse Ox O2 Del Method O2 Flow Rate 97.9 F 53 L 20 H 115/61 93 Room Air 2 07/03/23 19:22 07/03/23 19:22 07/03/23 19:22 07/03/23 19:22 07/03/23 19:22 07/03/23 19:22 07/03/23 08:03 Oxygen Flow Rate (L/min) 2 Oxygen Delivery Method Room Air Weight: 96.252 kg Body Mass Index (BMI) 31.3 Intake & Output: Intake and Output for Last 24 Hours 07/01/23 07/02/23 07/03/23 23:59 23:59 23:59 Intake Total 1665 / 1665 1785 / 2285 1455 / 1455 Output Total 800 / 800 100 / 100 Balance 1665 / 1665 985 / 1485 1355 / 1355 Lab / Micro Data 06/28/23 05:07 06/28/23 05:07 Micro: Microbiology 06/23/23 20:15 Urine, Catheterized Urine Culture - Final Culture exhibits no growth. Physical Exam Const alert General Appearance: cooperative HEENT normocephalic Eyes PERRL and EOMs intact bilaterally Neck supple, no JVD and no carotid bruits Resp normal respiratory effort, normal air movement and clear to auscultation bilaterally Cardio regular rate and regular rhythm GI normal to inspection, nondistended, normoactive bowel sounds, non-tender and non-distended Extremity normal capillary refill General Extremity: Negative for edema Skin no rashes or lesions noted General Skin Exam: no breakdown Psych affect normal Appearance: appropriate Assessment & Plan Assessment/Plan (1) Debility: (2) Closed right hip fracture: (3) Atrial fibrillation: QUALIFIERS: Atrial fibrillation type: paroxysmal Qualified Cod e(s): I48.0 - Paroxysmal atrial fibrillation (4) Depression: (5) Edema: (6) Hypertension: QUALIFIERS: Hypertension type: primary hypertension Qualified Code(s): I10 - Essential (primary) hypertension (7) Hypothyroidism: QUALIFIERS: Hypothyroidism type: acquired Qualified Code(s): E03.9 - Hypothyroidism, unspecified (8) Fecal impaction of colon: (9) Overactive bladder: (10) GERD (gastroesophageal reflux disease): PLAN: Plan 72 year old male with below past medical history hospitalized for right hip fracture, underwent right hip hemiarthroplasty 06/21/[address] Dorman, admitted to for 3 hours daily rehabilitation, strengthening, prior to disposition determination. * Debility - PT/OT/ST. * Pain - Tylenol 1000mg q8, Arthritis compound 2 clicks topical tid, Tramadol 100mg q6h prn. * Bowel - Linzess 145mcg daily, senna/colace 2 tablets bid, Dulcolax 10mg pr x 1 prn, MOM 30ml po x 1 prn. * DVT prophylaxis - Lovenox 40mg sc daily. * Atrial fibrillation - Coreg 3.125mg bid, Amiodarone 100mg daily, Aspirin 81mg daily. * Hyperlipidemia - Atorvastatin 40mg qhs. * Depression - Duloxetine 60mg daily. * Nutrition - Ensure Compact 118ml 4x/day. * Edema - Furosemide 40mg daily, Metolazone 2.5mg daily prn. * Hypertension - Coreg 3.125mg bid, Losartan 50mg daily, Hydralazine 10mg iv q4h prn. * GI prophylaxis - Lactobacillus 1 tablet bid. * Hypothyroidism - Levothyroxine 25mcg/50mcg alternating. * Skin irritation - Calmoseptine topical bid. * Overactive bladder - Myrbetriq 50mg daily. * Appetite loss/insomnia - Mirtazapine 30mg qhs. * Coronary artery disease - Coreg 3.125mg bid, Losartan 50mg daily, NTG 0.4mg q5m prn. * GERD - Pantoprazole 40mg daily. * Hypokalemia - KCL 20meq bid. * BPH - Tamsulosin 0.4mg daily. Capacity Capacity Assessment Tool Can the patient make a choice & communicate that choice?: Yes Can the patient understand benefits, risks and alternatives?: Yes Can the patient make a logical, rational choice?: Yes Is the choice the patient makes consistent w/ their values?: Yes Is there an impending, emergent risk to the patient?: No Does the patient have an Advance Directive?: No Is there a Surrogate Available?: Yes i.e. HCPOA: Yes i.e. close relative (spouse, child, parent, sibling)?: Yes
[2023-07-03] MEDS: Mirtazapine 30 MG Tablet PO (20:42)
[2023-07-03] MEDS: Atorvastatin Calcium 40 MG Tablet PO (20:42)
[2023-07-03 22:00] VITALS: PULSE 53; RESP 16; O2SAT 93
[2023-07-04] MEDS: Enoxaparin 40 MG/0.4 ML Syringe SC (05:50)
[2023-07-04] MEDS: Linacolotide 145 MCG CAPSULE PO (05:50)
[2023-07-04] MEDS: Arthritis Pain Compound 60 CLICK TUBE TOPICAL ×3 (05:50→21:09)
[2023-07-04] MEDS: Levothyroxine 25 MCG TABLET PO (05:50)
[2023-07-04] MEDS: Acetaminophen 500 MG Tablet 1000 MG PO ×3 (05:50→21:08)
[2023-07-04 06:00] VITALS: BMI 31.2
[2023-07-04 07:20] VITALS: BP 132/71; PULSE 53; RESP 16; TEMP 36.8; O2SAT 99
--- NOTE | 2023-07-04 08:50 | PN_ITS ---
Subjective Subjective Patient seen, examined. He is complaining of diarrhea, recent recto-sigmoid stricture dilated. He is no longer distended, will X-ray abdomen, and change bowel regimen to PRN. Probiotic added. Objective Data Objective Data Vital Signs: Vital Signs Temp Pulse Resp BP Pulse Ox O2 Del Method O2 Flow Rate 98.2 F 53 L 16 132/71 H 99 Nasal Cannula 2 07/04/23 07:20 07/04/23 07:20 07/04/23 07:20 07/04/23 07:20 07/04/23 07:20 07/04/23 07:20 07/04/23 07:20 Oxygen Flow Rate (L/min) 2 Oxygen Delivery Method Nasal Cannula Weight: 96.252 kg Body Mass Index (BMI) 31.3 Intake & Output: Intake and Output for Last 24 Hours 07/02/23 07/03/23 07/04/23 23:59 23:59 23:59 Intake Total 1785 / 2285 1455 / 1455 420 / 420 Output Total 800 / 800 100 / 100 175 / 175 Balance 985 / 1485 1355 / 1355 245 / 245 Lab / Micro Data 06/28/23 05:07 06/28/23 05:07 Micro: Microbiology 06/23/23 20:15 Urine, Catheterized Urine Culture - Final Culture exhibits no growth. Physical Exam Const alert General Appearance: cooperative HEENT normocephalic Eyes PERRL and EOMs intact bilaterally Neck supple, no JVD and no carotid bruits Resp normal respiratory effort, normal air movement and clear to auscultation bilaterally Cardio regular rate and regular rhythm GI normal to inspection, nondistended, normoactive bowel sounds, non-tender and non-distended Extremity normal capillary refill General Extremity: Negative for edema Skin no rashes or lesions noted General Skin Exam: no breakdown Psych affect normal Appearance: appropriate Assessment & Plan Assessment/Plan (1) Debility: (2) Closed right hip fracture: (3) Atrial fibrillation: QUALIFIERS: Atrial fibrillation type: paroxysmal Qualified Code (s): I48.0 - Paroxysmal atrial fibrillation (4) Depression: (5) Edema: (6) Hypertension: QUALIFIERS: Hypertension type: primary hypertension Qualified Code(s): I10 - Essential (primary) hypertension (7) Hypothyroidism: QUALIFIERS: Hypothyroidism type: acquired Qualified Code(s): E03.9 - Hypothyroidism, unspecified (8) Fecal impaction of colon: (9) Overactive bladder: (10) GERD (gastroesophageal reflux disease): PLAN: Plan 72 year old male with below past medical history hospitalized for right hip fracture, underwent right hip hemiarthroplasty 06/21/[address] Dorman, admitted to for 3 hours daily rehabilitation, strengthening, prior to disposition determination. * Debility - PT/OT/ST. * Pain - Tylenol 1000mg q8, Arthritis compound 2 clicks topical tid, Tramadol 100mg q6h prn. * Bowel - Linzess 145mcg daily PRN, senna/colace 2 tablets bid PRN, Dulcolax 10mg pr x 1 prn, MOM 30ml po x 1 prn. * DVT prophylaxis - Lovenox 40mg sc daily. * Atrial fibrillation - Coreg 3.125mg bid, Amiodarone 100mg daily, Aspirin 81mg daily. * Hyperlipidemia - Atorvastatin 40mg qhs. * Depression - Duloxetine 60mg daily. * Nutrition - Ensure Compact 118ml 4x/day. * Edema - Furosemide 40mg daily, Metolazone 2.5mg daily prn. * Hypertension - Coreg 3.125mg bid, Losartan 50mg daily, Hydralazine 10mg iv q4h prn. * GI prophylaxis - Lactobacillus 1 tablet bid. * Hypothyroidism - Levothyroxine 25mcg/50mcg alternating. * Skin irritation - Calmoseptine topical bid. * Overactive bladder - Myrbetriq 50mg daily. * Appetite loss/insomnia - Mirtazapine 30mg qhs. * Coronary artery disease - Coreg 3.125mg bid, Losartan 50mg daily, NTG 0.4mg q5m prn. * GERD - Pantoprazole 40mg daily. * Hypokalemia - KCL 20meq bid. * BPH - Tamsulosin 0.4mg daily. Capacity Capacity Assessment Tool Can the patient make a choice & communicate that choice?: Yes Can the patient understand benefits, risks and alternatives?: Yes Can the patient make a logical, rational choice?: Yes Is the choice the patient makes consistent w/ their values?: Yes Is there an impending, emergent risk to the patient?: No Does the patient have an Advance Directive?: No Is there a Surrogate Available?: Yes i.e. HCPOA: Yes i.e. close relative (spouse, child, parent, sibling)?: Yes
[2023-07-04] MEDS: Aspirin E.C. 81 MG Tablet PO (09:17)
[2023-07-04] MEDS: DULoxetine Hcl 60 MG Capsule PO (09:17)
[2023-07-04] MEDS: Tamsulosin HCl 0.4 MG Capsule PO (09:17)
[2023-07-04] MEDS: Amiodarone 200 MG Tablet 100 MG PO (09:17)
[2023-07-04] MEDS: Losartan Potassium 50 MG Tablet PO (09:17)
[2023-07-04] MEDS: Carvedilol 3.125 MG TABLET PO ×2 (09:17→16:07)
[2023-07-04] MEDS: Potassium Chloride Oral Tablet 10 MEQ 20 MEQ PO ×2 (09:18→21:09)
[2023-07-04] MEDS: Mirabegron 50 MG TAB.ER.24H PO (09:18)
[2023-07-04] MEDS: Furosemide 40 MG Tablet PO (09:18)
[2023-07-04] MEDS: Pantoprazole Sodium 40 MG Tablet PO (09:18)
[2023-07-04] MEDS: traMADol 50 MG Tablet 100 MG PO ×2 (09:19→16:07)
[2023-07-04] MEDS: Menthol/Lanolin/Calamine/Znox 113 GM Tube 1 APPLIC TOPICAL ×2 (09:26→21:09)
--- NOTE | 2023-07-04 09:34 | NURSING ---
spoke with Dr Perdue office r/t staple removal date. Pt is to f/u with Dr Dorman on 07/14 @ [id number]
--- NOTE | 2023-07-04 13:20 | RAD_ITS ---
STUDY: X-RAY - ABDOMEN/PELVIS REASON FOR EXAM: Male, 72 years old. diarrhea -- portable TECHNIQUE: Single AP view of the abdomen / pelvis. COMPARISON: 06/23/2023 FINDINGS: Normal visualized lung bases. There is an unremarkable bowel gas pattern. There is no demonstrated free abdominal air. The visualized liver, spleen and kidneys are grossly normal in size and morphology. Normal soft tissue structures. Status post vertebroplasty in the thoracic lumbar spine. Status post right hip hemiarthroplasty. RAD/Abdomen Single View (Portable) IMPRESSION: Nonspecific bowel gas pattern. Electronically Signed: Max Arnold MD at 15:04 EDT ,
[2023-07-04] MEDS: SimETHICONE 80 MG Chewable Tablet PO ×2 (16:07→21:09)
[2023-07-04 20:49] VITALS: BP 138/65; PULSE 60; RESP 16; TEMP 36.4; O2SAT 98
[2023-07-04] MEDS: 0.9% Saline Lock 10 ML Syringe IV (21:08)
[2023-07-04] MEDS: Atorvastatin Calcium 40 MG Tablet PO (21:09)
[2023-07-04] MEDS: Mirtazapine 30 MG Tablet PO (21:09)
[2023-07-04 22:00] VITALS: PULSE 60; RESP 17; O2SAT 98
[2023-07-05] MEDS: Arthritis Pain Compound 60 CLICK TUBE TOPICAL ×3 (05:39→20:35)
[2023-07-05] MEDS: Enoxaparin 40 MG/0.4 ML Syringe SC (05:40)
[2023-07-05] MEDS: Levothyroxine 25 MCG TABLET PO (05:40)
[2023-07-05] MEDS: Acetaminophen 500 MG Tablet 1000 MG PO ×3 (05:40→20:37)
[2023-07-05 05:45] LABS: Hematocrit 31.5 % (40-54); Hemoglobin 9.6 g/dL (13.0-16.5)
[2023-07-05 06:00] VITALS: BMI 30.6
[2023-07-05 07:18] VITALS: O2SAT 97
[2023-07-05 07:20] VITALS: BP 137/63; PULSE 55; RESP 16; TEMP 36.3; O2SAT 97
[2023-07-05] MEDS: Pantoprazole Sodium 40 MG Tablet PO (07:49)
[2023-07-05] MEDS: Aspirin E.C. 81 MG Tablet PO (07:49)
[2023-07-05] MEDS: DULoxetine Hcl 60 MG Capsule PO (07:49)
[2023-07-05] MEDS: Losartan Potassium 50 MG Tablet PO (07:49)
[2023-07-05] MEDS: Amiodarone 200 MG Tablet 100 MG PO (07:49)
[2023-07-05] MEDS: Mirabegron 50 MG TAB.ER.24H PO (07:49)
[2023-07-05] MEDS: Potassium Chloride Oral Tablet 10 MEQ 20 MEQ PO ×2 (07:49→20:37)
[2023-07-05] MEDS: Furosemide 40 MG Tablet PO (07:49)
[2023-07-05] MEDS: Carvedilol 3.125 MG TABLET PO ×2 (07:49→16:10)
[2023-07-05] MEDS: SimETHICONE 80 MG Chewable Tablet PO ×4 (07:50→20:36)
[2023-07-05] MEDS: Menthol/Lanolin/Calamine/Znox 113 GM Tube 1 APPLIC TOPICAL ×2 (07:50→20:37)
--- NOTE | 2023-07-05 08:31 | PN_ITS ---
Subjective Subjective Patient seen, examined. X-ray yesterday read as negative, but did show gas. Simethicone added, bowel regimen made PRN, and his diarrhea has resolved. He is otherwise doing well, no new problems, concerns, issues, complaints. Objective Data Objective Data Vital Signs: Vital Signs Temp Pulse Resp BP Pulse Ox O2 Del Method O2 Flow Rate 97.3 F L 55 L 16 137/63 H 97 Room Air 2 07/05/23 07:20 07/05/23 07:20 07/05/23 07:20 07/05/23 07:20 07/05/23 07:20 07/05/23 07:20 07/05/23 06:23 Oxygen Flow Rate (L/min) 2 Oxygen Delivery Method Room Air Weight: 94 kg Body Mass Index (BMI) 30.6 Intake & Output: Intake and Output for Last 24 Hours 07/03/23 07/04/23 07/05/23 23:59 23:59 23:59 Intake Total 1455 / 1455 1860 / 1860 180 / 180 Output Total 100 / 100 175 / 175 Balance 1355 / 1355 1685 / 1685 180 / 180 Lab / Micro Data 07/05/23 05:12 06/28/23 05:07 Labs: Laboratory Results - last 24 hr 07/05/23 05:12: Hgb 9.6 L, Hct 31.5 L Micro: Microbiology 06/23/23 20:15 Urine, Catheterized Urine Culture - Final Culture exhibits no growth. Radiography Diagnostic Testing: Radiology Impression KUB X-Ray 07/04/23 13:20 IMPRESSION: Nonspecific bowel gas pattern. Electronically Signed: Max Arnold MD at 15:04 EDT , Physical Exam Const alert General Appearance: cooperative HEENT normocephalic Eyes PERRL and EOMs intact bilaterally Neck supple, no JVD and no carotid bruits Resp normal respiratory effort, normal air movement and clear to auscultation bilaterally Cardio regular rate and regular rhythm GI normal to inspection, nondistended, normoactive bowel sounds, non-tender and non -distended Extremity normal capillary refill General Extremity: Negative for edema Skin no rashes or lesions noted General Skin Exam: no breakdown Psych affect normal Appearance: appropriate Assessment & Plan Assessment/Plan (1) Debility: (2) Closed right hip fracture: (3) Atrial fibrillation: QUALIFIERS: Atrial fibrillation type: paroxysmal Qualified Code(s): I48.0 - Paroxysmal atrial fibrillation (4) Depression: (5) Edema: (6) Hypertension: QUALIFIERS: Hypertension type: primary hypertension Qualified Code(s): I10 - Essential (primary) hypertension (7) Hypothyroidism: QUALIFIERS: Hypothyroidism type: acquired Qualified Code(s): E03.9 - Hypothyroidism, unspecified (8) Fecal impaction of colon: (9) Overactive bladder: (10) GERD (gastroesophageal reflux disease): PLAN: Plan 72 year old male with below past medical history hospitalized for right hip fracture, underwent right hip hemiarthroplasty 06/21/[address] Dorman, admitted to for 3 hours daily rehabilitation, strengthening, prior to disposition determination. * Debility - PT/OT/ST. * Pain - Tylenol 1000mg q8, Arthritis compound 2 clicks topical tid, Tramadol 100mg q6h prn. * Bowel - Linzess 145mcg daily PRN, senna/colace 2 tablets bid PRN, Dulcolax 10mg pr x 1 prn, MOM 30ml po x 1 prn. * DVT prophylaxis - Lovenox 40mg sc daily. * Atrial fibrillation - Coreg 3.125mg bid, Amiodarone 100mg daily, Aspirin 81mg daily. * Hyperlipidemia - Atorvastatin 40mg qhs. * Depression - Duloxetine 60mg daily. * Nutrition - Ensure Compact 118ml 4x/day. * Edema - Furosemide 40mg daily, Metolazone 2.5mg daily prn. * Hypertension - Coreg 3.125mg bid, Losartan 50mg daily, Hydralazine 10mg iv q4h prn. * GI prophylaxis - Lactobacillus 1 tablet bid. * Hypothyroidism - Levothyroxine 25mcg/50mcg alternating. * Skin irritation - Calmoseptine topical bid. * Overactive bladder - Myrbetriq 50mg daily. * Appetite loss/insomnia - Mirtazapine 30mg qhs. * Coronary artery disease - Coreg 3.125mg bid, Losartan 50mg daily, NTG 0.4mg q5 m prn. * GERD - Pantoprazole 40mg daily. * Hypokalemia - KCL 20meq bid. * BPH - Tamsulosin 0.4mg daily. * Gas - Simethicone 80mg pchs x 7 days. Capacity Capacity Assessment Tool Can the patient make a choice & communicate that choice?: Yes Can the patient understand benefits, risks and alternatives?: Yes Can the patient make a logical, rational choice?: Yes Is the choice the patient makes consistent w/ their values?: Yes Is there an impending, emergent risk to the patient?: No Does the patient have an Advance Directive?: No Is there a Surrogate Available?: Yes i.e. HCPOA: Yes i.e. close relative (spouse, child, parent, sibling)?: Yes
[2023-07-05] MEDS: Tamsulosin HCl 0.4 MG Capsule PO (08:53)
[2023-07-05] MEDS: 0.9% Saline Lock 10 ML Syringe IV (08:56)
[2023-07-05] MEDS: traMADol 50 MG Tablet 100 MG PO (09:41)
[2023-07-05 19:30] VITALS: BP 128/64; PULSE 55; RESP 18; TEMP 36.8; O2SAT 96
[2023-07-05] MEDS: Mirtazapine 30 MG Tablet PO (20:36)
[2023-07-05] MEDS: Atorvastatin Calcium 40 MG Tablet PO (20:36)
[2023-07-06] MEDS: traMADol 50 MG Tablet 100 MG PO ×3 (02:40→21:46)
[2023-07-06 06:00] VITALS: BMI 30.9
[2023-07-06] MEDS: Acetaminophen 500 MG Tablet 1000 MG PO ×3 (06:07→21:44)
[2023-07-06] MEDS: Levothyroxine 25 MCG TABLET PO (06:07)
[2023-07-06] MEDS: Arthritis Pain Compound 60 CLICK TUBE TOPICAL ×3 (06:07→21:45)
[2023-07-06] MEDS: Enoxaparin 40 MG/0.4 ML Syringe SC (06:07)
[2023-07-06] MEDS: Amiodarone 200 MG Tablet 100 MG PO (08:58)
[2023-07-06] MEDS: Losartan Potassium 50 MG Tablet PO (08:59)
[2023-07-06] MEDS: Furosemide 40 MG Tablet PO (08:59)
[2023-07-06] MEDS: Pantoprazole Sodium 40 MG Tablet PO (08:59)
[2023-07-06] MEDS: Tamsulosin HCl 0.4 MG Capsule PO (08:59)
[2023-07-06] MEDS: Menthol/Lanolin/Calamine/Znox 113 GM Tube 1 APPLIC TOPICAL ×2 (08:59→21:45)
[2023-07-06] MEDS: Mirabegron 50 MG TAB.ER.24H PO (08:59)
[2023-07-06] MEDS: Carvedilol 3.125 MG TABLET PO ×2 (08:59→16:14)
[2023-07-06] MEDS: Aspirin E.C. 81 MG Tablet PO (08:59)
[2023-07-06] MEDS: DULoxetine Hcl 60 MG Capsule PO (08:59)
[2023-07-06] MEDS: SimETHICONE 80 MG Chewable Tablet PO ×4 (08:59→21:44)
[2023-07-06] MEDS: Potassium Chloride Oral Tablet 10 MEQ 20 MEQ PO ×2 (08:59→21:44)
[2023-07-06 09:32] VITALS: BP 145/64; PULSE 54; RESP 16; TEMP 36.3; O2SAT 98
[2023-07-06 19:12] VITALS: BP 129/63; PULSE 59; RESP 18; TEMP 36.7; O2SAT 98
--- NOTE | 2023-07-06 20:47 | DS.PCM_ITS ---
Providers Date of Admission: 06/22/23 Primary Care Physician: MARIELENA Edwards Consultations 06/26/23 10:02 Consult: Gastroenterology Routine Consulting Provider: Rad[facility] Reason for Consult: colonic distension with no BM's and no results with laxatives. EMERGENT Consult: No MD Notified: Yes Date Notified: 06/26/23 Time Notified: 10:02 Method of Notification: Text Reason For Visit: RIGHT HIP FRACTURE Diagnosis Discharge Diagnosis (1) Debility: Status: Acute Code(s): R53.81 - Other malaise (2) Closed right hip fracture: Status: Acute Code(s): S72.001A - Fracture of unspecified part of neck of right femur, initial encounter for closed fracture (3) Atrial fibrillation: Status: Acute Code(s): I48.91 - Unspecified atrial fibrillation Qualifiers: Atrial fibrillation type: paroxysmal Qualified Code(s): I48.0 - Paroxysmal atrial fibrillation (4) Depression: Status: Acute Code(s): F32.A - Depression, unspecified (5) Edema: Status: Acute Code(s): R60.9 - Edema, unspecified (6) Hypertension: Status: Chronic Code(s): I10 - Essential (primary) hypertension Qualifiers: Hypertension type: primary hypertension Qualified Code(s): I10 - Essent ial (primary) hypertension (7) Hypothyroidism: Status: Chronic Code(s): E03.9 - Hypothyroidism, unspecified Qualifiers: Hypothyroidism type: acquired Qualified Code(s): E03.9 - Hypothyroidism, unspecified (8) Fecal impaction of colon: Status: Acute Code(s): K56.41 - Fecal impaction (9) Overactive bladder: Status: Acute Code(s): N32.81 - Overactive bladder (10) GERD (gastroesophageal reflux disease): Status: Acute Code(s): K21.9 - Gastro-esophageal reflux disease without esophagitis Plan 72 year old male with below past medical history hospitalized for right hip fracture, underwent right hip hemiarthroplasty 06/21/[address] Dorman, admitted to for 3 hours daily rehabilitation, strengthening, prior to disposition determination. * Debility - PT/OT/ST. * Pain - Tylenol 1000mg q8, Arthritis compound 2 clicks topical tid, Tramadol 100mg q6h prn. * Bowel - Linzess 145mcg daily PRN, senna/colace 2 tablets bid PRN, Dulcolax 10mg pr x 1 prn, MOM 30ml po x 1 prn. * DVT prophylaxis - Lovenox 40mg sc daily. * Atrial fibrillation - Coreg 3.125mg bid, Amiodarone 100mg daily, Aspirin 81mg daily. * Hyperlipidemia - Atorvastatin 40mg qhs. * Depression - Duloxetine 60mg daily. * Nutrition - Ensure Compact 118ml 4x/day. * Edema - Furosemide 40mg daily, Metolazone 2.5mg daily prn. * Hypertension - Coreg 3.125mg bid, Losartan 50mg daily, Hydralazine 10mg iv q4h prn. * GI prophylaxis - Lactobacillus 1 tablet bid. * Hypothyroidism - Levothyroxine 25mcg/50mcg alternating. * Skin irritation - Calmoseptine topical bid. * Overactive bladder - Myrbetriq 50mg daily. * Appetite loss/insomnia - Mirtazapine 30mg qhs. * Coronary artery disease - Coreg 3.125mg bid, Losartan 50mg daily, NTG 0.4mg q5m prn. * GERD - Pantoprazole 40mg daily. * Hypokalemia - KCL 20meq bid. * BPH - Tamsulosin 0.4mg daily. * Gas - Simethicone 80mg pchs x 7 days. Medications at Discharge Home Medications atorvastatin 40 mg tablet 40 mg PO .HS cholesterol 04/05/18 nitroglycerin 0.4 mg sublingual tablet 0.4 mg sublingual Q5-15M PRN pain 04/05/18 mirtazapine 30 mg tablet (Remeron) 30 mg PO .HS SLEEP 09/26/18 omeprazole 20 mg tablet,delayed release 20 mg PO DAILY reflux 09/26/18 potassium chloride 10 mEq tablet,extended release 20 meq PO BID supplement 11/18/19 aspirin 81 mg tablet,delayed release 81 mg PO QDAY heart health 02/01/22 amiodarone 200 mg tablet 100 mg (1/2 x 200 mg) PO QDAY heart rate #90 tabs 08/08/22 duloxetine 60 mg capsule,delayed release 60 mg PO DAILY mental health 03/21/23 furosemide 40 mg tablet 40 mg PO DAILY diuretic 03/21/23 levothyroxine 25 mcg tablet 50 mcg PO .Sa/Reynolds thyroid 03/21/23 levothyroxine 25 mcg tablet (Euthyrox) 25 mcg PO .M-F thyroid 03/21/23 mirabegron 50 mg tablet,extended release 24 hr (Myrbetriq) 50 mg PO DAILY BLADDER 05/19/23 acetaminophen 500 mg capsule 1,000 mg PO Q8H PRN PRN Pain 1-10 05/22/23 metolazone 2.5 mg tablet 2.5 mg PO DAILY PRN FLUID RETENTION 05/22/23 carvedilol 3.125 mg tablet 3.125 mg PO BID BP #180 tabs 06/07/23 losartan 50 mg tablet 50 mg PO DAILY BP #60 tabs 06/07/23 tamsulosin 0.4 mg capsule 0.4 mg PO DAILY retention 06/07/23 enoxaparin 40 mg/0.4 mL subcutaneous syringe (Lovenox) 40 mg (0.4 mL) subcut DAILY prophylactic #4 mL 06/22/23 oxycodone 5 mg tablet 2.5 mg (1/2 x 5 mg) PO Q6H PRN PRN Pain Score 6-10 #0 tabs 06/22/23 linaclotide 145 mcg capsule (Linzess) 145 mcg PO QAM #30 caps 06/27/23 Arthritis Pain Compound 2 click topical TID ##0 07/06/23 acetaminophen 500 mg tablet 1,000 mg (2 x 500 mg) PO Q8 #0 tabs 07/06/23 amiodarone 200 mg tablet 100 mg (1/2 x 200 mg) PO DAILYCM #0 tabs 07/06/23 aspirin 81 mg tablet,delayed release 81 mg PO DAILY #0 tabs 07/06/23 atorvastatin 40 mg tablet 40 mg PO QHS #0 tabs 07/06/23 carvedilol 3.125 mg tablet 3.125 mg PO BIDCM #0 tabs 07/06/23 duloxetine 60 mg capsule,delayed release 60 mg PO DAILY #0 caps 07/06/23 levothyroxine 25 mcg tablet 25 mcg PO MoTuWeThFr@0600 #0 tabs 07/06/23 levothyroxine 50 mcg tablet 50 mcg PO SuSa@0600 #0 tabs 07/06/23 losartan 50 mg tablet 50 mg PO DAILY #0 tabs 07/06/23 metolazone 2.5 mg tablet 2.5 mg PO DAILY PRN FLUID RETENTION #0 tabs 07/06/23 mirabegron 50 mg tablet,extended release 24 hr (Myrbetriq) 50 mg PO DAILY #0 tabs 07/06/23 mirtazapine 30 mg tablet 30 mg PO QHS #0 tabs 07/06/23 nitroglycerin 0.4 mg sublingual tablet 0.4 mg sublingual Q5M PRN Cardiac/Chest Pain #0 tabs 07/06/23 pantoprazole 40 mg tablet,delayed release 40 mg PO DAILY #0 tabs 07/06/23 potassium chloride 10 mEq tablet,extended release(part/cryst) 20 meq (2 x 10 mEq) PO BID #0 tabs 07/06/23 sennosides 8.6 mg-docusate sodium 50 mg tablet (Stool Softener-Stimulant Laxative) 2 tab PO BID PRN Constipation #0 tabs 07/06/23 tamsulosin 0.4 mg capsule 0.4 mg PO DAILY #0 caps 07/06/23 tramadol 50 mg tablet 100 mg (2 x 50 mg) PO Q6H PRN PRN Pain Score 1-10 #0 tabs 07/06/23 Hospital Course Operations - (Right hip hemiarthroplasty.) Procedures None Summary of Care Provided Minutes Spent on Discharge: 35 Hospital Course: 72 year old male with below past medical history hospitalized for right hip fracture, underwent right hip hemiarthroplasty 06/21/[address] Dorman, admitted to for 3 hours daily rehabilitation, strengthening, prior to disposition determination. Discharge to TCU 07/10/2023, skilled, PT/OT/ST. Physical Exam Const alert General Appearance: cooperative HEENT normocephalic Eyes PERRL and EOMs intact bilaterally Neck supple, no JVD and no carotid bruits Resp normal respiratory effort, normal air movement and clear to auscultation bilaterally Cardio regular rate and regular rhythm GI normal to inspection, nondistended, normoactive bowel sounds, non-tender and non-distended Extremity normal capillary refill General Extremity: Negative for edema Skin no rashes or lesions noted General Skin Exam: no breakdown Psych affect normal Appearance: appropriate Weight / BMI Weight Weight: 94.9 kg Body Mass Index (BMI) 30.9 ABG / Lab / Microbiology Data 07/05/23 05:12 06/28/23 05:07 Microbiology: Microbiology 06/23/23 20:15 Urine, Catheterized Urine Culture - Final Culture exhibits no growth. Indicators for Scoring Admitted with or Primary Diagnosis of CVA/Stroke: No Hx of CVA/Stroke: Yes Modified Jimmy Score MRS Score at time of Evaluation: 4-Moderate/severe disability D/C Instructions Discharge Diet: No restrictions Discharge Activity: Return to Normal Activity, May Shower and Use Walker Weight Bearing Status: Weight bearing as tolerated Call your doctor if you observe: Fever of 101 or Higher, Inability to urinate, Inability to have a bowel movement, Shortness of breath, Dizziness, Fainting spells, Swelling in the ankles, Chest pain and Uncontrolled pain Additional Instructions: Discharge to TCU 07/10/2023, skilled, PT/OT/ST. Meaningful Use Info Meaningful Use Diagnoses (Choose all that apply): None applicable Discharge Plan Admission Admit Date/Time: 06/22/23 14:38 Primary Reason for Your Visit: Debility. Attending Provider: Gris Duran Primary Care Provider: Kaylin Hui Instructions Additional Instructions / Restrictions: Discharge to TCU 07/10/2023, skilled, PT/OT/ST. Discharge Orders/Prescriptions Prescriptions: New acetaminophen 500 mg Tablet 1,000 mg PO Q8 Qty: 0 0RF amiodarone 200 mg Tablet 100 mg PO DAILYCM Qty: 0 0RF aspirin 81 mg Tablet,Delayed Release (Dr/Ec) 81 mg PO DAILY Qty: 0 0RF Arthritis Pain Compound 2 click topical TID Qty: 0 0RF losartan 50 mg Tablet 50 mg PO DAILY Qty: 0 0RF metolazone 2.5 mg Tablet 2.5 mg PO DAILY PRN (Reason: FLUID RETENTION) Qty: 0 0RF atorvastatin 40 mg Tablet 40 mg PO QHS Qty: 0 0RF sennosides-docusate sodium [Stool Softener-Stimulant Laxat] 8.6-50 mg Tablet 2 tab PO BID PRN (Reason: Constipation) Qty: 0 0RF carvedilol 3.125 mg Tablet 3.125 mg PO BIDCM Qty: 0 0RF levothyroxine 25 mcg Tablet 25 mcg PO MoTuWeThFr@0600 Qty: 0 0RF tamsulosin 0.4 mg Capsule 0.4 mg PO DAILY Qty: 0 0RF levothyroxine 50 mcg Tablet 50 mcg PO SuSa@0600 Qty: 0 0RF pantoprazole 40 mg Tablet,Delayed Release (Dr/Ec) 40 mg PO DAILY Qty: 0 0RF mirtazapine 30 mg Tablet 30 mg PO QHS Qty: 0 0RF nitroglycerin 0.4 mg Tablet, Sublingual 0.4 mg sublingual Q5M PRN (Reason: Cardiac/Chest Pain) Qty: 0 0RF potassium chloride 10 mEq Tablet,Er Particles/Crystals 20 meq PO BID Qty: 0 0RF duloxetine 60 mg Capsule,Delayed Release(Dr/Ec) 60 mg PO DAILY Qty: 0 0RF Myrbetriq 50 mg Tablet Extended Release 24 Hr 50 mg PO DAILY Qty: 0 0RF tramadol 50 mg Tablet 100 mg PO Q6H PRN PRN (Reason: Pain Score 1-10) Qty: 0 0RF Continued furosemide 40 mg tablet 40 mg PO DAILY No Action nitroglycerin 0.4 mg tablet, sublingual 0.4 mg SUBLINGUAL Q5-15M PRN (Reason: pain) atorvastatin 40 mg tablet 40 mg PO .HS aspirin 81 mg tablet,delayed release (DR/EC) 81 mg PO QDAY Rx Instructions: 2 tabs daily omeprazole 20 mg tablet,delayed release (DR/EC) 20 mg PO DAILY mirtazapine [Remeron] 30 mg tablet 30 mg PO .HS potassium chloride 10 mEq tablet extended release 20 meq PO BID levothyroxine [Euthyrox] 25 mcg tablet 25 mcg PO .M-F levothyroxine 25 mcg tablet 50 mcg PO .Sa/Reynolds duloxetine 60 mg capsule,delayed release(DR/EC) 60 mg PO DAILY tamsulosin 0.4 mg capsule 0.4 mg PO DAILY carvedilol 3.125 mg tablet 3.125 mg PO BID Qty: 180 3RF Rx Instructions: must administer with a meal/food losartan 50 mg tablet 50 mg PO DAILY Qty: 60 0RF Myrbetriq 50 mg tablet extended release 24 hr 50 mg PO DAILY Patient Comments: TAKE 1 TABLET BY MOUTH ONCE DAILY acetaminophen 500 mg capsule 1,000 mg PO Q8H PRN PRN (Reason: Pain 1-10) metolazone 2.5 mg tablet 2.5 mg PO DAILY PRN (Reason: FLUID RETENTION) oxycodone 5 mg Tablet 2.5 mg PO Q6H PRN PRN (Reason: Pain Score 6-10) Qty: 0 0RF enoxaparin [Lovenox] 40 mg/0.4 mL syringe 40 mg subcut DAILY Qty: 4 0RF amiodarone 200 mg tablet 100 mg PO QDAY Qty: 90 3RF Linzess 145 mcg capsule 145 mcg PO QAM Qty: 30 0RF Referrals / Follow Up: Ramesh Dorman DO [Med Staff - Active Staff] - 07/14/23 10:30 am Kaylin Hui PA [Primary Care Provider] - Disposition Disposition (needs filled in before D/C Order can be placed): [facility]
--- NOTE | 2023-07-06 20:59 | TREXTCAR_ITS ---
Diet Diet Order/Speech Therapy: 06/28/23 10:39 Diet: Cardiac - Heart Healthy Is pt able to select menu?: Yes Diet Comments: supervision at meals & assist feeding as needed Routine Orders/Code Status Code Status: Full Code Wound(s) Right hip: Wound Type: Surgical Incision Therapies Weight Bearing: Weight bearing as tolerated Extremity Affected:: Bilateral Lower Physical Therapy: Eval and Treat Occupational Therapy: Eval and Treat Speech Therapy: Eval and Treat Problem/Diagnosis (1) Debility: Status: Acute Code(s): R53.81 - Other malaise (2) Closed right hip fracture: Status: Acute Code(s): S72.001A - Fracture of unspecified part of neck of right femur, initial encounter for closed fracture (3) Atrial fibrillation: Status: Acute Code(s): I48.91 - Unspecified atrial fibrillation (4) Depression: Status: Acute Code(s): F32.A - Depression, unspecified (5) Edema: Status: Acute Code(s): R60.9 - Edema, unspecified (6) Hypertension: Status: Chronic Code(s): I10 - Essential (primary) hypertension (7) Hypothyroidism: Status: Chronic Code(s): E03.9 - Hypothyroidism, unspecified Comment: TSH on 05/23/2023 was 3.11 with a normal T4. (8) Fecal impaction of colon: Status: Acute Code(s): K56.41 - Fecal impaction (9) Overactive bladder: Status: Acute Code(s): N32.81 - Overactive bladder (10) GERD (gastroesophageal reflux disease): Status: Acute Code(s): K21.9 - Gastro-esophageal reflux disease without esophagitis Plan 72 year old male with below past medical history hospitalized for right hip fracture, underwent right hip hemiarthroplasty 06/21/[address] Dorman, admitted to for 3 hours daily rehabilitation, strengthening, prior to disposition determination. * Debility - PT/OT/ST. * Pain - Tylenol 1000mg q8, Arthritis compound 2 clicks topical tid, Tramadol 100mg q6h prn. * Bowel - Linzess 145mcg daily PRN, senna/colace 2 tablets bid PRN, Dulcolax 10mg pr x 1 prn, MOM 30ml po x 1 prn. * DVT prophylaxis - Lovenox 40mg sc daily. * Atrial fibrillation - Coreg 3.125mg bid, Amiodarone 100mg daily, Aspirin 81mg daily. * Hyperlipidemia - Atorvastatin 40mg qhs. * Depression - Duloxetine 60mg daily. * Nutrition - Ensure Compact 118ml 4x/day. * Edema - Furosemide 40mg daily, Metolazone 2.5mg daily prn. * Hypertension - Coreg 3.125mg bid, Losartan 50mg daily, Hydralazine 10mg iv q4h prn. * GI prophylaxis - Lactobacillus 1 tablet bid. * Hypothyroidism - Levothyroxine 25mcg/50mcg alternating. * Skin irritation - Calmoseptine topical bid. * Overactive bladder - Myrbetriq 50mg daily. * Appetite loss/insomnia - Mirtazapine 30mg qhs. * Coronary artery disease - Coreg 3.125mg bid, Losartan 50mg daily, NTG 0.4mg q5m prn. * GERD - Pantoprazole 40mg daily. * Hypokalemia - KCL 20meq bid. * BPH - Tamsulosin 0.4mg daily. * Gas - Simethicone 80mg pchs x 7 days. Allergies/Procedures Done in Hospital Allergies lisinopril Adverse Reaction (Verified 06/07/23 14:19) cough Procedures: None Type of Care/Length of Stay Estimated LOS: Convalescent Care Less Than 30 days Type of Care Needed: Skilled Rehab Potential: Fair Prognosis: Fair Additional Orders/Day of Discharge Day of Discharge: 07/10/23 Dietary and Speech Recommendations Dietitian Recommendations/Changes: Continue Cardiac diet to manage medical conditions. RD will discontinue Ensure Compact due to pt dislike. RD will order Magic Cup BID to provide supplemental energy. Discharge Plan Admission Admit Date/Time: 06/22/23 14:38 Primary Reason for Your Visit: Debility. Attending Provider: Gris Duran Primary Care Provider: Kaylin Hui Instructions Additional Instructions / Restrictions: Discharge to TCU 07/10/2023, skilled, PT/OT/ST. Discharge Orders/Prescriptions Prescriptions: New acetaminophen 500 mg Tablet 1,000 mg PO Q8 Qty: 0 0RF amiodarone 200 mg Tablet 100 mg PO DAILYCM Qty: 0 0RF aspirin 81 mg Tablet,Delayed Release (Dr/Ec) 81 mg PO DAILY Qty: 0 0RF Arthritis Pain Compound 2 click topical TID Qty: 0 0RF losartan 50 mg Tablet 50 mg PO DAILY Qty: 0 0RF metolazone 2.5 mg Tablet 2.5 mg PO DAILY PRN (Reason: FLUID RETENTION) Qty: 0 0RF atorvastatin 40 mg Tablet 40 mg PO QHS Qty: 0 0RF sennosides-docusate sodium [Stool Softener-Stimulant Laxat] 8.6-50 mg Tablet 2 tab PO BID PRN (Reason: Constipation) Qty: 0 0RF carvedilol 3.125 mg Tablet 3.125 mg PO BIDCM Qty: 0 0RF levothyroxine 25 mcg Tablet 25 mcg PO MoTuWeThFr@0600 Qty: 0 0RF tamsulosin 0.4 mg Capsule 0.4 mg PO DAILY Qty: 0 0RF levothyroxine 50 mcg Tablet 50 mcg PO SuSa@0600 Qty: 0 0RF pantoprazole 40 mg Tablet,Delayed Release (Dr/Ec) 40 mg PO DAILY Qty: 0 0RF mirtazapine 30 mg Tablet 30 mg PO QHS Qty: 0 0RF nitroglycerin 0.4 mg Tablet, Sublingual 0.4 mg sublingual Q5M PRN (Reason: Cardiac/Chest Pain) Qty: 0 0RF potassium chloride 10 mEq Tablet,Er Particles/Crystals 20 meq PO BID Qty: 0 0RF duloxetine 60 mg Capsule,Delayed Release(Dr/Ec) 60 mg PO DAILY Qty: 0 0RF Myrbetriq 50 mg Tablet Extended Release 24 Hr 50 mg PO DAILY Qty: 0 0RF tramadol 50 mg Tablet 100 mg PO Q6H PRN PRN (Reason: Pain Score 1-10) Qty: 0 0RF Continued furosemide 40 mg tablet 40 mg PO DAILY No Action nitroglycerin 0.4 mg tablet, sublingual 0.4 mg SUBLINGUAL Q5-15M PRN (Reason: pain) atorvastatin 40 mg tablet 40 mg PO .HS aspirin 81 mg tablet,delayed release (DR/EC) 81 mg PO QDAY Rx Instructions: 2 tabs daily omeprazole 20 mg tablet,delayed release (DR/EC) 20 mg PO DAILY mirtazapine [Remeron] 30 mg tablet 30 mg PO .HS potassium chloride 10 mEq tablet extended release 20 meq PO BID levothyroxine [Euthyrox] 25 mcg tablet 25 mcg PO .M-F levothyroxine 25 mcg tablet 50 mcg PO .Sa/Reynolds duloxetine 60 mg capsule,delayed release(DR/EC) 60 mg PO DAILY tamsulosin 0.4 mg capsule 0.4 mg PO DAILY carvedilol 3.125 mg tablet 3.125 mg PO BID Qty: 180 3RF Rx Instructions: must administer with a meal/food losartan 50 mg tablet 50 mg PO DAILY Qty: 60 0RF Myrbetriq 50 mg tablet extended release 24 hr 50 mg PO DAILY Patient Comments: TAKE 1 TABLET BY MOUTH ONCE DAILY acetaminophen 500 mg capsule 1,000 mg PO Q8H PRN PRN (Reason: Pain 1-10) metolazone 2.5 mg tablet 2.5 mg PO DAILY PRN (Reason: FLUID RETENTION) oxycodone 5 mg Tablet 2.5 mg PO Q6H PRN PRN (Reason: Pain Score 6-10) Qty: 0 0RF enoxaparin [Lovenox] 40 mg/0.4 mL syringe 40 mg subcut DAILY Qty: 4 0RF amiodarone 200 mg tablet 100 mg PO QDAY Qty: 90 3RF Linzess 145 mcg capsule 145 mcg PO QAM Qty: 30 0RF Referrals / Follow Up: Ramesh Dorman DO [Med Staff - Active Staff] - 07/14/23 10:30 am Kaylin Hui PA [Primary Care Provider] - Disposition Disposition (needs filled in before D/C Order can be placed): [facility] (3) Atrial fibrillation Qualifiers: Atrial fibrillation type: paroxysmal Qualified Code(s): I48.0 - Paroxysmal atrial fibrillation (6) Hypertension Qualifiers: Hypertension type: primary hypertension Qualified Code(s): I10 - Essential (primary) hypertension (7) Hypothyroidism Qualifiers: Hypothyroidism type: acquired Qualified Code(s): E03.9 - Hypothyroidism, unspecified
[2023-07-06] MEDS: Mirtazapine 30 MG Tablet PO (21:44)
[2023-07-06] MEDS: Atorvastatin Calcium 40 MG Tablet PO (21:44)
[2023-07-07] MEDS: Levothyroxine 25 MCG TABLET PO (05:13)
[2023-07-07] MEDS: Enoxaparin 40 MG/0.4 ML Syringe SC (05:13)
[2023-07-07] MEDS: Arthritis Pain Compound 60 CLICK TUBE TOPICAL ×3 (05:13→20:14)
[2023-07-07] MEDS: Acetaminophen 500 MG Tablet 1000 MG PO ×3 (05:13→20:18)
[2023-07-07 05:38] LABS: Hematocrit 32.9 % (40-54); Hemoglobin 10.1 g/dL (13.0-16.5)
[2023-07-07 05:43] VITALS: BMI 30.3
[2023-07-07] MEDS: traMADol 50 MG Tablet 100 MG PO ×2 (06:24→14:18)
[2023-07-07 07:40] VITALS: BP 135/57; PULSE 55; RESP 16; TEMP 36.2; O2SAT 99
[2023-07-07] MEDS: Amiodarone 200 MG Tablet 100 MG PO (09:08)
[2023-07-07] MEDS: SimETHICONE 80 MG Chewable Tablet PO ×4 (09:09→20:18)
[2023-07-07] MEDS: Carvedilol 3.125 MG TABLET PO ×2 (09:09→16:25)
[2023-07-07] MEDS: DULoxetine Hcl 60 MG Capsule PO (09:10)
[2023-07-07] MEDS: Aspirin E.C. 81 MG Tablet PO (09:10)
[2023-07-07] MEDS: Tamsulosin HCl 0.4 MG Capsule PO (09:10)
[2023-07-07] MEDS: Losartan Potassium 50 MG Tablet PO (09:10)
[2023-07-07] MEDS: Menthol/Lanolin/Calamine/Znox 113 GM Tube 1 APPLIC TOPICAL ×2 (09:11→20:15)
[2023-07-07] MEDS: Mirabegron 50 MG TAB.ER.24H PO (09:11)
[2023-07-07] MEDS: Potassium Chloride Oral Tablet 10 MEQ 20 MEQ PO ×2 (09:11→20:17)
[2023-07-07] MEDS: Furosemide 40 MG Tablet PO (09:11)
[2023-07-07] MEDS: Pantoprazole Sodium 40 MG Tablet PO (09:11)
--- NOTE | 2023-07-07 09:25 | NURSING ---
This nurse gave resident his cup of medications this morning and resident dumped a large amount of pills in his mouth. Resident took a few drinks of water but stated he felt like some of the pills stuck. Resident was encouraged to drink more water and to swallow hard and fast. Resident did swallow pills and took the rest of his medications without trouble. Speech therapy working with resident recommended that resident take medications 1-2 pills at a time, resident verbalized understanding.
[2023-07-07] MEDS: 0.9% Saline Lock 10 ML Syringe IV (16:26)
[2023-07-07 16:34] VITALS: O2SAT 92
[2023-07-07] MEDS: Atorvastatin Calcium 40 MG Tablet PO (20:18)
[2023-07-07] MEDS: Mirtazapine 30 MG Tablet PO (20:20)
[2023-07-07 20:30] VITALS: PULSE 56; RESP 16; O2SAT 95
[2023-07-07 22:00] VITALS: BP 137/72; PULSE 56; RESP 16; TEMP 36.8; O2SAT 95
[2023-07-08] MEDS: Enoxaparin 40 MG/0.4 ML Syringe SC (05:08)
[2023-07-08] MEDS: Arthritis Pain Compound 60 CLICK TUBE TOPICAL ×3 (05:08→21:19)
[2023-07-08] MEDS: Acetaminophen 500 MG Tablet 1000 MG PO ×3 (05:09→21:23)
[2023-07-08] MEDS: Levothyroxine 50 MCG Tablet PO (05:09)
[2023-07-08 06:00] VITALS: BMI 30.2
[2023-07-08 07:18] VITALS: O2SAT 98
[2023-07-08 08:00] VITALS: BP 151/79; PULSE 84; RESP 16; TEMP 36.3; O2SAT 99
[2023-07-08] MEDS: Furosemide 40 MG Tablet PO (09:10)
[2023-07-08] MEDS: Tamsulosin HCl 0.4 MG Capsule PO (09:10)
[2023-07-08] MEDS: Amiodarone 200 MG Tablet 100 MG PO (09:10)
[2023-07-08] MEDS: Aspirin E.C. 81 MG Tablet PO (09:10)
[2023-07-08] MEDS: Carvedilol 3.125 MG TABLET PO ×2 (09:10→17:20)
[2023-07-08] MEDS: DULoxetine Hcl 60 MG Capsule PO (09:10)
[2023-07-08] MEDS: Losartan Potassium 50 MG Tablet PO (09:10)
[2023-07-08] MEDS: Pantoprazole Sodium 40 MG Tablet PO (09:10)
[2023-07-08] MEDS: Potassium Chloride Oral Tablet 10 MEQ 20 MEQ PO ×2 (09:10→21:22)
[2023-07-08] MEDS: SimETHICONE 80 MG Chewable Tablet PO ×4 (09:10→21:23)
[2023-07-08] MEDS: Mirabegron 50 MG TAB.ER.24H PO (09:11)
[2023-07-08] MEDS: Menthol/Lanolin/Calamine/Znox 113 GM Tube 1 APPLIC TOPICAL ×2 (09:21→21:19)
[2023-07-08] MEDS: traMADol 50 MG Tablet 100 MG PO (18:07)
[2023-07-08 19:25] VITALS: BP 148/75; PULSE 61; RESP 16; TEMP 36.7; O2SAT 98
[2023-07-08] MEDS: Atorvastatin Calcium 40 MG Tablet PO (21:23)
[2023-07-08] MEDS: Mirtazapine 30 MG Tablet PO (21:23)
[2023-07-08 22:00] VITALS: PULSE 61; RESP 16; O2SAT 98
[2023-07-09] MEDS: Levothyroxine 50 MCG Tablet PO (05:59)
[2023-07-09 06:00] VITALS: BMI 30.5
[2023-07-09] MEDS: Enoxaparin 40 MG/0.4 ML Syringe SC (06:00)
[2023-07-09] MEDS: Arthritis Pain Compound 60 CLICK TUBE TOPICAL ×3 (06:00→21:50)
[2023-07-09] MEDS: Acetaminophen 500 MG Tablet 1000 MG PO ×3 (06:00→21:49)
[2023-07-09 07:26] VITALS: BP 152/77; PULSE 56; RESP 17; TEMP 37.1; O2SAT 99
[2023-07-09 07:47] VITALS: O2SAT 99
[2023-07-09] MEDS: Amiodarone 200 MG Tablet 100 MG PO (08:14)
[2023-07-09] MEDS: Carvedilol 3.125 MG TABLET PO ×2 (08:14→17:22)
[2023-07-09] MEDS: SimETHICONE 80 MG Chewable Tablet PO ×4 (08:15→21:48)
[2023-07-09] MEDS: Mirabegron 50 MG TAB.ER.24H PO (09:26)
[2023-07-09] MEDS: Pantoprazole Sodium 40 MG Tablet PO (09:26)
[2023-07-09] MEDS: Losartan Potassium 50 MG Tablet PO (09:27)
[2023-07-09] MEDS: DULoxetine Hcl 60 MG Capsule PO (09:27)
[2023-07-09] MEDS: Potassium Chloride Oral Tablet 10 MEQ 20 MEQ PO ×2 (09:28→21:49)
[2023-07-09] MEDS: Furosemide 40 MG Tablet PO (09:28)
[2023-07-09] MEDS: Tamsulosin HCl 0.4 MG Capsule PO (09:28)
[2023-07-09] MEDS: Aspirin E.C. 81 MG Tablet PO (09:29)
[2023-07-09] MEDS: Menthol/Lanolin/Calamine/Znox 113 GM Tube 1 APPLIC TOPICAL ×2 (15:10→21:50)
[2023-07-09] MEDS: traMADol 50 MG Tablet 100 MG PO (20:01)
[2023-07-09 20:16] VITALS: BP 132/70; PULSE 63; RESP 18; TEMP 36.8; O2SAT 94
[2023-07-09] MEDS: Atorvastatin Calcium 40 MG Tablet PO (21:49)
[2023-07-09] MEDS: Mirtazapine 30 MG Tablet PO (21:49)
[2023-07-10] MEDS: Enoxaparin 40 MG/0.4 ML Syringe SC (05:00)
[2023-07-10] MEDS: Arthritis Pain Compound 60 CLICK TUBE TOPICAL ×2 (05:00→13:00)
[2023-07-10] MEDS: Levothyroxine 25 MCG TABLET PO (05:00)
[2023-07-10] MEDS: Acetaminophen 500 MG Tablet 1000 MG PO ×2 (05:01→13:00)
[2023-07-10 06:00] VITALS: BMI 30.7
[2023-07-10 07:32] VITALS: BP 149/74; PULSE 56; RESP 16; TEMP 36.3; O2SAT 95
[2023-07-10 08:19] VITALS: O2SAT 98
[2023-07-10] MEDS: SimETHICONE 80 MG Chewable Tablet PO ×2 (08:29→13:00)
[2023-07-10] MEDS: Amiodarone 200 MG Tablet 100 MG PO (08:29)
[2023-07-10] MEDS: Carvedilol 3.125 MG TABLET PO (08:30)
[2023-07-10] MEDS: traMADol 50 MG Tablet 100 MG PO (09:05)
[2023-07-10] MEDS: Pantoprazole Sodium 40 MG Tablet PO (09:17)
[2023-07-10] MEDS: Aspirin E.C. 81 MG Tablet PO (09:17)
[2023-07-10] MEDS: Tamsulosin HCl 0.4 MG Capsule PO (09:18)
[2023-07-10] MEDS: Furosemide 40 MG Tablet PO (09:18)
[2023-07-10] MEDS: Mirabegron 50 MG TAB.ER.24H PO (09:18)
[2023-07-10] MEDS: Potassium Chloride Oral Tablet 10 MEQ 20 MEQ PO (09:18)
[2023-07-10] MEDS: DULoxetine Hcl 60 MG Capsule PO (09:18)
[2023-07-10] MEDS: Menthol/Lanolin/Calamine/Znox 113 GM Tube 1 APPLIC TOPICAL (09:18)
[2023-07-10] MEDS: Losartan Potassium 50 MG Tablet PO (09:18)
== END 2023-07-10 13:28 | disposition skilled nursing facility (03) | DRG 560 ==
PROVIDERS: Family Medicine Geriatric Medicine; Internal Medicine Gastroenterology; Admitting Provider Internal Medicine; PCP Physician Assistant; Visit Provider Internal Medicine
PROC: 0DJD8ZZ Inspection of Lower Intestinal Tract, Via Natural or Artificial Opening Endoscopic (ICD-10-PCS; CPT 45378; principal; 2023-06-27 15:25)
DX: S72.001D Fracture of unspecified part of neck of right femur, subsequent encounter for closed fracture with routine healing (principal); G21.19 Other drug induced secondary parkinsonism; D62 Acute posthemorrhagic anemia; I11.0 Hypertensive heart disease with heart failure; K86.89 Other specified diseases of pancreas; I50.9 Heart failure, unspecified; I48.0 Paroxysmal atrial fibrillation; K56.41 Fecal impaction; F10.10 Alcohol abuse, uncomplicated; F32.A Depression, unspecified; E03.9 Hypothyroidism, unspecified; E87.6 Hypokalemia; I25.10 Atherosclerotic heart disease of native coronary artery without angina pectoris; E78.5 Hyperlipidemia, unspecified; I25.5 Ischemic cardiomyopathy; K21.9 Gastro-esophageal reflux disease without esophagitis; K57.30 Diverticulosis of large intestine without perforation or abscess without bleeding; W19.XXXD Unspecified fall, subsequent encounter; G47.00 Insomnia, unspecified; Z96.611 Presence of right artificial shoulder joint; Z87.891 Personal history of nicotine dependence; Z79.82 Long term (current) use of aspirin; Z23 Encounter for immunization; Z79.899 Other long term (current) drug therapy; Z79.890 Hormone replacement therapy; Z86.16 Personal history of COVID-19; N40.0 Benign prostatic hyperplasia without lower urinary tract symptoms; Z95.810 Presence of automatic (implantable) cardiac defibrillator
CPT/HCPCS: 36415; 71045; 71046; 73502; 74018; 74177; 76000; 80048; 80053; 81001; 82306; 82962; 83735; 84100; 84443; 85014; 85018; 85025; 85027; 85610; 85730; 86850; 86900; 86901; 87086; 88305; 88311; 92507; 92523; 92526; 92610; 93005; 97110; 97116; 97129; 97130; 97162; 97166; 97530; 97535; 97803; 99252; 99283; C1776; J7050; J7120; Q9967; 90662; A4216; G0463; J2405

== ENCOUNTER 2023-07-10 13:35 | Inpatient (IN) | payer MEDICARE, BC, SELFPAY ==
[2023-07-10 13:58] VITALS: BP 162/73; PULSE 57; RESP 16; RESP 18; TEMP 36.3; O2SAT 95; BMI 29.9
--- NOTE | 2023-07-10 17:33 | RAD_ITS ---
EXAM: XR RIGHT HIP WITH PELVIS WHEN PERFORMED, 2 OR 3 VIEWS CLINICAL INDICATION: Pain, worse with walking. TECHNIQUE: Two or three views of the right hip with pelvis when performed. COMPARISON: 07/04/2023 FINDINGS: BONES/JOINTS: Right hip arthroplasty changes. No displaced fracture. No destructive or sclerotic lesions. Note that overlapping bowel shadows may however obscure fine detail. Sacroiliac joint is unremarkable. No widening of the pubic symphysis. SOFT TISSUES: Unremarkable. No soft tissue swelling or gas. RAD/HIP, UNI W/ Pelvis 2-3 Views IMPRESSION: 1. Right hip arthroplasty changes. 2. No acute abnormalities identified involving the pelvis or right hip. Electronically Signed: Ray Ovalles MD at 7:28 EDT ,
[2023-07-10] MEDS: Carvedilol 3.125 MG TABLET PO (18:01)
[2023-07-10] MEDS: Potassium Chloride Oral Tablet 20 MEQ PO (18:02)
[2023-07-10] MEDS: traMADol 50 MG Tablet 100 MG PO (18:05)
--- NOTE | 2023-07-10 19:30 | HP.PCM_ITS ---
HPI - General General Date of Admission: 07/10/23 Date of Service: 07/10/23 Chief Complaint: Here for rehabilitation. HPI Narrative AMANDA HERNANDEZ, is a 72 Male who presents with followin72 year old male with below past medical history hospitalized for right hip fracture, underwent right hip hemiarthroplasty 06/21/[address] Dorman, admitted to for 3 hours daily rehabilitation, strengthening, prior to disposition determination. 07/10/2023 Discharge to TCU, skilled, PT/OT/ST. 07/10/2023 Resident c/o right hip pain, will order X-ray to evaluate. I also note swelling right lower extremity, order Doppler ultrasound right lower extremity to evaluate for DVT. [facility] Medical History (Updated 07/10/23 @ 19:[address] Good Lizama MD) Adult failure to thrive Alcoholism Anxiety and depression Aphonia Atherosclerotic heart disease of [place] coronary artery without angina pectoris Bifascicular block BPH (benign prostatic hyperplasia) Bradycardia Cardiac arrest with ventricular fibrillation Congestive heart failure (CHF) CVA (cerebral vascular accident) Diverticulosis Dysphagia Dyspnea on exertion Essential hypertension Fatigue Former smoker GERD (gastroesophageal reflux disease) History of CVA (cerebrovascular accident) History of tracheal stenosis Hyperlipidemia Hypertension Hypothyroidism ICD (implantable cardioverter-defibrillator) in place Ischemic cardiomyopathy Low back pain Myocardial infarct Non-rheumatic mitral regurgitation Pancreatic mass 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 Right bundle branch block Syncope Trigeminal neuralgia Home Medications omeprazole 20 mg tablet,delayed release 20 mg PO DAILY reflux 09/26/18 [History Last Taken 06/22/23] potassium chloride 10 mEq tablet,extended release 20 meq PO BID supplement 11/18/19 [History Last Taken 06/22/23] aspirin 81 mg tablet,delayed release 81 mg PO QDAY heart health 02/01/22 [History Last Taken 06/22/23] amiodarone 200 mg tablet 100 mg (1/2 x 200 mg) PO QDAY heart rate #90 tabs 08/08/22 [Rx Last Taken 06/22/23] duloxetine 60 mg capsule,delayed release 60 mg PO DAILY mental health 03/21/23 [History Last Taken 06/22/23] furosemide 40 mg tablet 40 mg PO DAILY diuretic 03/21/23 [History Last Taken 06/22/23] mirabegron 50 mg tablet,extended release 24 hr (Myrbetriq) 50 mg PO DAILY BLADDER 05/19/23 [History Last Taken 06/22/23] acetaminophen 500 mg capsule 1,000 mg PO Q8H PRN PRN Pain 1-10 05/22/23 [History Last Taken 06/22/23] losartan 50 mg tablet 50 mg PO DAILY BP #60 tabs 06/07/23 [Rx Last Taken 06/22/23] tamsulosin 0.4 mg capsule 0.4 mg PO DAILY retention 06/07/23 [History Last Taken 06/22/23] enoxaparin 40 mg/0.4 mL subcutaneous syringe (Lovenox) 40 mg (0.4 mL) subcut DAILY prophylactic #4 mL 06/22/23 [Rx Last Taken 06/22/23] oxycodone 5 mg tablet 2.5 mg (1/2 x 5 mg) PO Q6H PRN PRN Pain Score 6-10 #0 tabs 06/22/23 [Rx Last Taken 06/22/23] linaclotide 145 mcg capsule (Linzess) 145 mcg PO QAM bowel #30 caps 06/27/23 [Rx Last Taken Unknown] acetaminophen 500 mg tablet 1,000 mg (2 x 500 mg) PO Q8 pain #0 tabs 07/06/23 [Rx Last Taken Unknown] atorvastatin 40 mg tablet 40 mg PO QHS cholesterol #0 tabs 07/06/23 [Rx Last Taken Unknown] carvedilol 3.125 mg tablet 3.125 mg PO BIDCM BP #0 tabs 07/06/23 [Rx Last Taken Unknown] levothyroxine 25 mcg tablet 25 mcg PO MoTuWeThFr@0600 thyroid #0 tabs 07/06/23 [Rx Last Taken Unknown] levothyroxine 50 mcg tablet 50 mcg PO SuSa@0600 thyroid #0 tabs 07/06/23 [Rx Last Taken Unknown] metolazone 2.5 mg tablet 2.5 mg PO DAILY PRN FLUID RETENTION #0 tabs 07/06/23 [Rx Last Taken Unknown] mirtazapine 30 mg tablet 30 mg PO QHS sleep #0 tabs 07/06/23 [Rx Last Taken Unknown] nitroglycerin 0.4 mg sublingual tablet 0.4 mg sublingual Q5M PRN Cardiac/Chest Pain #0 tabs 07/06/23 [Rx Last Taken Unknown] pantoprazole 40 mg tablet,delayed release 40 mg PO DAILY acid reflux #0 tabs 07/06/23 [Rx Last Taken Unknown] sennosides 8.6 mg-docusate sodium 50 mg tablet (Stool Softener-Stimulant Laxative) 2 tab PO BID PRN Constipation #0 tabs 07/06/23 [Rx Last Taken Unknown] tramadol 50 mg tablet 100 mg (2 x 50 mg) PO Q6H PRN PRN Pain Score 1-10 #0 tabs 07/06/23 [Rx Last Taken Unknown] Arthritis Pain Compound 2 click topical TID arthritis 07/10/23 [History Last Taken Unknown] Allergy/AdvReac Type Severity Reaction Status Date / Time lisinopril AdvReac cough Verified 06/07/23 14:19 Family History Mother Heart disease Cancer breast CAD (coronary artery disease) Breast cancer Father Colon cancer Sister Breast cancer Rheumatoid arthritis Surgical History Aortocoronary bypass status (~09/28/17) History of cardiac radiofrequency ablation History of implantable cardioverter-defibrillator (ICD) placement (~11/10/17) History of kyphoplasty History of resection and anastomosis of trachea (~04/2021) Social History household members: spouse number of children: 2 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 Admits to 8-9 beers a day at the present time. substance use type: does not use caffeine: No ROS Constitutional Constitutional: Denies chills, fever(s) or weight gain ENT HEENT: Denies headache(s), nasal congestion or nasal discharge Cardiovascular Cardiovascular: Denies chest pain or palpitations Respiratory/Chest Respiratory/Chest: Denies cough, excessive phlegm production or shortness of breath with exertion Gastrointestinal Gastrointestinal: Denies abdominal pain, nausea or vomiting Genitourinary Genitourinary: Denies dysuria Musculoskeletal Musculoskeletal: Denies joint pain or joint swelling Integumentary Integumentary: Denies rash or wounds Neurologic Neurologic: Denies focal weakness, numbness or tingling Psychiatric Psychiatric: Denies anxiety, auditory hallucinations, depression, homicidal ideation or suicidal ideation Vital Signs Vital Signs Vital Signs: 07/10/23 13:58 07/10/23 13:58 Temperature 97.3 F L Temperature Source Temporal Pulse Rate 57 L 57 L Pulse Rhythm Regular Pulse Strength Normal (2+) Respiratory Rate 16 18 Respiratory Effort Normal Respiratory Depth Normal Respiratory Pattern Normal Blood Pressure 162/73 H Blood Pressure Mean 102 Blood Pressure Source Monitor Blood Pressure Position Semi-Fowlers Blood Pressure Location Right Arm Pulse Ox 95 95 Oxygen Delivery Method Room Air Room Air Weight Weight: 92.193 kg Body Mass Index (BMI) 29.9 Physical Exam Const alert General Appearance: cooperative HEENT normocephalic Eyes PERRL and EOMs intact bilaterally Neck supple, no JVD and no carotid bruits Resp normal respiratory effort, normal air movement and clear to auscultation bilaterally Cardio regular rate and regular rhythm GI normal to inspection, nondistended, normoactive bowel sounds, non-tender and non-distended Extremity normal capillary refill General Extremity: Negative for edema Skin no rashes or lesions noted General Skin Exam: no breakdown Psych affect normal Appearance: appropriate Assessment & Plan Assessment/Plan (1) Debility: (2) Closed right hip fracture: (3) Primary pancreatic neuroendocrine tumor: (4) History of CVA (cerebrovascular accident): (5) Atrial fibrillation: QUALIFIERS: Atrial fibrillation type: paroxysmal Qualified Code(s): I48.0 - Paroxysmal atrial fibrillation (6) Coronary artery disease: (7) Status post right shoulder hemiarthroplasty: (8) Hyperlipidemia: QUALIFIERS: Hyperlipidemia type: unspecified Qualified Code(s): E78.5 - Hyperlipidemia, unspecified (9) Depression: (10) Edema: (11) Hypothyroidism: QUALIFIERS: Hypothyroidism type: acquired Qualified Code(s): E03.9 - Hypothyroidism, unspecified (12) Hypokalemia: PLAN: Plan 72 year old male with below past medical history hospitalized for right hip fracture, underwent right hip hemiarthroplasty 06/21/[address] Dorman, admitted to for 3 hours daily rehabilitation, strengthening, transferred to TCU with debility, here for rehabilitation, strengthening, prior to disposition determination. * Debility - PT/OT. * Cognition - ST. * Pain - Tylenol 1000mg q8, q8 prn, Arthritis compound 2 clicks topical tid, Oxycodone 2.5mg q6 prn. * Bowel - senna/colace 2 tablets bid prn. * Adult immunization - Administer pneumonia vaccine, covid19 vaccine, flu va ccine as appropriate. * DVT prophylaxis - Lovenox 40mg sc daily. * Atrial Fibrillation - Coreg 3.125mg bid, Amiodarone 100mg daily. * Coronary artery Disease - Coreg 3.125mg bid, Losartan 50mg daily, Aspirin 81mg daily, NTG 0.4mg q5m prn. 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 * Edema - Furosemide 40mg daily. * Hypothyroidism - Levothyroxine 25mcg/50mcg alternating, TSH. * Skin irritation - Calmoseptine tpical bid. * Overactive bladder - Myrbetriq 50mg daily. * Appetite loss - Mirtazapine 7.5mg qhs. * Tinea Corporis - Nystatin topical bid. * GERD - Pantoprazole 40mg daily. * Hypokalemia - KCL ER 20meq bid. * BPH - Tamsulosin 0.4mg daily. * Insomnia - Trazodone 100mg qhs.
[2023-07-10] MEDS: oxyCODONE 5 MG Tablet 2.5 MG PO (21:35)
[2023-07-10] MEDS: Atorvastatin Calcium 40 MG Tablet PO (21:36)
[2023-07-10] MEDS: Arthritis Pain Compound 60 CLICK TUBE TOPICAL (21:36)
[2023-07-10] MEDS: Acetaminophen 500 MG Tablet 1000 MG PO (21:37)
[2023-07-10] MEDS: Mirtazapine 30 MG Tablet PO (21:37)
[2023-07-10] MEDS: Menthol/Lanolin/Calamine/Znox 113 GM Tube 1 APPLIC TOPICAL (21:39)
[2023-07-10] MEDS: Nystatin Powder 15gm Bottle 1 APPLIC TOPICAL (21:47)
[2023-07-11] MEDS: Acetaminophen 500 MG Tablet 1000 MG PO ×3 (05:08→21:10)
[2023-07-11] MEDS: Levothyroxine 25 MCG TABLET PO (05:09)
[2023-07-11] MEDS: Arthritis Pain Compound 60 CLICK TUBE TOPICAL (05:09)
[2023-07-11 05:55] LABS: Absolute Lymphocyte Count 1.23 X10^3/uL (0.83-4.51); Absolute Neutrophil Count 3.2 X10^3/uL (2.0-7.7); Basophil# 0.04 X10^3/uL; Basophil% 0.8 % (0-1); Eosinophil# 0.19 X10^3/uL; Eosinophils% 3.6 % (0-5); Hematocrit 32.8 % (40-54); Lymphocyte # 1.23 X10^3/ul (0.83-4.51); Lymphocyte % 23.3 % (19-41); Mean Corp Hgb Conc 30.5 g/dL (32-36); Mean Corpuscular Hgb 31.1 pg (27.0-32.0); Mean Corpuscular Volume 101.9 fL (80-94); Mean Platelet Vol. 8.9 fl (6.2-12.0); Monocyte# 0.56 X10^3/uL; Monocyte% 10.6 % (0-10); NRBC Flagged by Analyzer 0 % (0-5); Neutrophil # 3.24 X10^3/uL (2.7-7.7); Neutrophil % 61.3 % (47-70); Platelet Count 358 K/mm3 (150-450); RBC Distribution Width CV 14.5 % (11.6-14.6); RBC Distribution Width SD 53.8 fl (35.1-43.9); Red Blood Count 3.22 M/mm3 (4.6-6.2); White Blood Count 5.3 K/mm3 (4.4-11.0)
[2023-07-11 06:22] LABS: Anion Gap 3 (5-15); BUN 15 mg/dL (7-18); BUN/Creat Ratio 15.3 RATIO (10-20); Chloride 105 mmol/L (98-107); Creatinine, Serum 0.98 mg/dL (0.70-1.30); EST Glomerular Filtration Rate 80 mL/min (>60); Est Glom Filt Rate - Afr Amer 97 mL/min (>60); Estimated Creatinine Clearance 70.14 ml/min; Glucose 84 mg/dL (74-106); Potassium 3.6 mmol/L (3.5-5.1); Sodium Level 140 mmol/L (136-145)
--- NOTE | 2023-07-11 07:36 | PHA.CONS_ITS ---
Documented by User: Rodrigo Vance 07/11/23 08:15 TCU RX Drug Regimen Review Subjective/Objective Subjective/Objective: Subjective: 72 year old male with below past medical history hospitalized for right hip fracture, underwent right hip hemiarthroplasty 06/21/[address] Dorman, admitted to for 3 hours daily rehabilitation, strengthening, transferred to TCU with debility, here for rehabilitation, strengthening, prior to disposition determination. Objective: Allergies lisinopril Adverse Reaction (Verified 06/07/23 14:19) cough Current Medications Generic Name Dose Route Start Last Admin Trade Name Freq PRN Reason Stop Dose Admin Acetaminophen 1,000 mg 07/10/23 14:21 Acetaminophen 500 Mg Tablet PO Q8H PRN PRN Pain 1-10 Acetaminophen 1,000 mg 07/10/23 22:00 07/11/23 05:08 Acetaminophen 500 Mg Tablet PO 1,000 mg Q8 HUGH Administration Amiodarone HCl 100 mg 07/11/23 10:00 Amiodarone 200 Mg Tablet PO DAILY [facility] Aspirin 81 mg 07/11/23 10:00 Aspirin E.C. 81 Mg Tablet PO DAILY [facility] Atorvastatin Calcium 40 mg 07/10/23 22:00 07/10/23 21:36 Atorvastatin Calcium 40 Mg Tablet PO 40 mg QHS HUGH Administration Calamine/Phenol 1 applic 07/10/23 22:00 07/10/23 21:39 Menthol/Lanolin/Calamine/Znox 113 Gm Tube TOPICAL 1 applic BID [facility] Administration Protocol Carvedilol 3.125 mg 07/10/23 17:00 07/10/23 18:01 Carvedilol 3.125 Mg Tablet PO 3.125 mg BIDCM HUGH Administration Protocol Compound Med 2 click 07/10/23 22:00 07/11/23 05:09 Arthritis Pain Compound 60 Click Tube TOPICAL 2 click TID HUGH Administration Duloxetine HCl 60 mg 07/11/23 10:00 Duloxetine Hcl 60 Mg Capsule PO DAILY [facility] Enoxaparin Sodium 40 mg 07/11/23 10:00 Enoxaparin 40 Mg/0.4 Ml Syringe SC DAILY [facility] Furosemide 40 mg 07/11/23 10:00 Furosemide 40 Mg Tablet PO DAILY [facility] Protocol Levothyroxine Sodium 25 mcg 07/11/23 06:00 07/11/23 05:09 Levothyroxine 25 Mcg Tablet PO 25 mcg MoTuWeThFr@0600 HUGH Administration Levothyroxine Sodium 50 mcg 07/15/23 06:00 Levothyroxine 50 Mcg Tablet PO SuSa@0600 [facility] Losartan Potassium 50 mg 07/11/23 10:00 Losartan Potassium 50 Mg Tablet PO DAILY [facility] Protocol Mirabegron 50 mg 07/11/23 10:00 Mirabegron 50 Mg Tab.Er.24h PO DAILY [facility] Mirtazapine 30 mg 07/10/23 22:00 07/10/23 21:37 Mirtazapine 30 Mg Tablet PO 30 mg QHS [facility] Administration Nitroglycerin 0.4 mg 07/10/23 14:21 Nitroglycerin Sl (Ed/Img/Cath) 0.4 Mg Tablet SL Q5M PRN Cardiac/Chest Pain Nystatin 1 applic 07/10/23 22:00 07/10/23 21:47 Nystatin Powder 15gm Bottle TOPICAL 1 applic BID [facility] Administration Protocol Oxycodone HCl 2.5 mg 07/10/23 14:21 07/10/23 21:35 Oxycodone 5 Mg Tablet PO 2.5 mg Q6H PRN PRN Administration Pain Score 6-10 Pantoprazole Sodium 40 mg 07/11/23 10:00 Pantoprazole Sodium 40 Mg Tablet PO DAILY [facility] Potassium Chloride 20 meq 07/10/23 17:00 07/10/23 18:02 Potassium Chloride Oral Tablet 20 Meq PO 20 meq BIDCM [facility] Administration Senna/Docusate Sodium 2 tablet 07/10/23 14:21 Senna/Docusate Sodium 1 Tablet PO BID PRN Constipation Tamsulosin HCl 0.4 mg 07/11/23 10:00 Tamsulosin Hcl 0.4 Mg Capsule PO DAILY [facility] Tramadol HCl 100 mg 07/10/23 14:21 07/10/23 18:05 Tramadol 50 Mg Tablet PO 100 mg Q6H PRN PRN Administration Pain Score 1-10 Tuberculin PPD 0.1 ml 07/11/23 10:00 Tuberculin,Purif.Prot.Deriv. 50 Tu/Ml Vial ID 07/11/23 10:01 X1 ONE Problem List (Updated 07/10/23 @ 19:[address] Good Lizama MD) Hyperlipidemia (Acute) Edema (Acute) Closed right hip fracture (Acute) Primary pancreatic neuroendocrine tumor (Acute) History of CVA (cerebrovascular accident) (Acute) Hypothyroidism (Chronic) Status post right shoulder hemiarthroplasty (Acute) Coronary artery disease (Chronic) Depression (Acute) Atrial fibrillation (Acute) Debility (Acute) Vital Signs Temp Pulse Resp BP Pulse Ox O2 Del Method 97.3 F L 57 L 18 162/73 H 95 Room Air 07/10/23 13:58 07/10/23 13:58 07/10/23 13:58 07/10/23 13:58 07/10/23 13:58 07/11/23 06:05 Oxygen Delivery Method Room Air Weight: 92.193 kg Body Mass Index (BMI) 29.9 Sodium 140 mmol/L (136-145) 07/11/23 05:30 Potassium 3.6 mmol/L (3.5-5.1) 07/11/23 05:30 Chloride 105 mmol/L (98-107) 07/11/23 05:30 Carbon Dioxide 32.0 mmol/L (21.0-32.0) 07/11/23 05:30 Anion Gap 3 (5-15) L 07/11/23 05:30 BUN 15 mg/dL (7-18) 07/11/23 05:30 Creatinine 0.98 mg/dL (0.70-1.30) 07/11/23 05:30 Est GFR (MDRD) Af Amer 97 mL/min (>60) 07/11/23 05:30 Est GFR (MDRD) Non-Af 80 mL/min (>60) 07/11/23 05:30 BUN/Creatinine Ratio 15.3 RATIO (10-20) 07/11/23 05:30 Glucose 84 mg/dL (74-106) 07/11/23 05:30 Assessment/Plan: 1. Pain: acetaminophen 1000 mg PO Q8H, acetaminophen 1000 mg PO Q8H PRN pain, oxycodone 2.5 mg PO Q6H PRN pain 6-07/04, tramadol 100 mg PO Q6H PRN pain, arthritis pain compound 2 clicks topically TID. The patient has used 1 dose of PRN oxycodone, 1 dose of PRN tramadol, and no doses of PRN acetaminophen so far this admission. Please continue to monitor pain levels, and PRN medication usage, as well as LFTs (AST/ALT = 23/24 U/L on 06/28/23), dizziness/drowsiness, falls/syncope (oxycodone/tramadol Beer's criteria), for seizures and renal function (serum creatinine = 0.98 mg/dL with creatinine clearance ~ 70 mL/min on 07/11/23). As the patient has not used any PRN acetaminophen and any single dose would put them at the daily maximum, please consider either reducing the dose of PRN acetaminophen or discontinuing the PRN acetaminophen. 2. Bowel: senna/docusate 2 tablets PO BID PRN constipation. The patient's last documented bowel movement was on 07/03/23. The patient has not used any PRN doses of senna/docusate so far this admission. Please continue to monitor for PRN medication usage, constipation and diarrhea. As the patient has not been administered any PRN senna/docusate and does not have documented bowel movement for 8 days, please consider changing senna/docusate from PRN to scheduled. 3. DVT prophylaxis: enoxaparin 40 mg SQ daily. Please continue to monitor for s/s of DVT such as erythema/swelling/warmth/pain in the lower extremity, as well as for bleeding/excessive bruising, hemoglobin (Hgb = 10.0 g/dL on 07/11/23), platelet count (PLT = 358 K/mm3), and renal function (serum creatinine = 0.98 mg/dL with creatinine clearance ~ 70 mL/min on 07/11/23). 4. Atrial fibrillation/coronary artery disease: carvedilol 3.125 mg PO BID, amiodarone 100 mg PO daily, aspirin 81 mg PO daily, losartan 50 mg PO daily, atorvastatin 40 mg PO QHS, nitroglycerin 0.4 mg PO Q5Min PRN chest pain. The patient has not required any PRN doses of nitroglycerin yet this admission. Please continue to monitor for chest pain, s/s that the patient may be in atrial fibrillation such as heart palpitations and increased heart rate (recent range = 55-84 beats/min), for s/s of stroke, blood pressures (recent range = 128-162/57-79 mmHg), LFTs (AST/ALT = 23/24 U/L on 06/28/23), lipid levels (cholesterol = 133 mg/dL on 10/21/19 with LDL = 45 mg/dL on 07/15/19), TSH (TSH = 3.49 on 06/20/23), T4 (T4 = 1.23 ng/dL on 05/23/23), for s/s of bleeding, GI distress that could indicate ulcer formation, renal function (serum creatinine = 0.98 mg/dL with creatinine clearance ~ 70 mL/min on 07/11/23), potassium levels (K = 3.6 mmol/L on 07/11/23), sodium levels (Na = 140 mmol/L on 07/11/23), for myopathies, and for PRN nitroglycerin usage. The patient's blood pressures have been consistently elevated, please consider increasing losartan from 50 mg to 100 mg PO daily. 5. Edema: furosemide 40 mg PO daily. Please continue to monitor for increased edema, s/s of pulmonary congestion such as shortness of breath or increased respiratory rate (recent range = 16-18 breaths/min), potassium levels (K = 3.6 mmol/L on 07/11/23), sodium levels (Na = 140 mmol/L on 07/11/23), renal function (serum creatinine = 0.98 mg/dL with creatinine clearance ~ 70 mL/min on 07/11/23), calcium levels (ca = 9.0 mg/dL on 07/11/23), and for s/s of dehydration. 6. Hypothyroidism: levothyroxine 25 mcg PO daily on Monday through Monday, l evothyroxine 50 mcg PO daily on Monday and Monday. Please continue to monitor for s/s of hypo/hyperthyroidism as well as TSH (TSH = 3.49 on 06/20/23) and T4 levels (T4 = 1.23 ng/dL on 05/23/23). 7. Overactive bladder: mirabegron 50 mg PO daily. Please continue to monitor for bladder spasms, and blood pressures (recent range = 128-162/57-79 mmHg). 8. GERD: pantoprazole 40 mg PO daily. Please continue to monitor for s/s of GERD, diarrhea that could indicate clostridium difficile infection, and s/s of bone resorption such as fractures. 9. Hypokalemia: potassium chloride 20 mEq PO BID with meals. Please continue to monitor potassium levels (K = 3.6 mmol/L on 07/11/23), and for GI distress with potassium administration. If GI distress occurs with potassium administration please ensure that potassium is given with food. 10. BPH: tamsulosin 0.4 mg PO daily. Please continue to monitor for urine stream/retention, and blood pressures (recent range = 128-162/57-79 mmHg). 11. Skin irritation/tinea corporis: calmoseptine 1 application topically BID, nystatin powder 1 application topically BID. Please continue to monitor for resolution of tinea corporis as well as for skin irritation/integrity. Assessment/Plan for indications treated with psychotropic medications: 1. Depression: duloxetine 60 mg PO daily. Please see provider note regarding stable chronic long-term use GDR not recommended. Please continue to monitor for SI, LFTs (AST/ALT = 23/24 U/L on 06/28/23), sodium levels (Na = 140 mmol/L on 07/11/23), for s/s of serotonin syndrome, and for s/s of bleeding. 2. Appetite loss/insomnia: mirtazapine 7.5 mg PO QHS, trazodone 100 mg PO QHS. Stable long-term use, GDR not recommended. Please continue to monitor for insomnia, for appetite, blood pressures (recent range = 128-162/57-79 mmHg), lipid levels (cholesterol = 133 mg/dL on 07/15/19 with LDL = 45 mg/dL on 07/15/19), weight gain, constipation, and for SI. Medical chart and medication regimen reviewed. The following medication irregularities or issues were identified: 1. Pain: acetaminophen 1000 mg PO Q8H, acetaminophen 1000 mg PO Q8H PRN pain, oxycodone 2.5 mg PO Q6H PRN pain 6-07/04, tramadol 100 mg PO Q6H PRN pain, arthritis pain compound 2 clicks topically TID. As the patient has not used any PRN acetaminophen and any single dose would put them at the daily maximum, please consider either reducing the dose of PRN acetaminophen or discontinuing the PRN acetaminophen. 2. Bowel: senna/docusate 2 tablets PO BID PRN constipation. As the patient has not been administered any PRN senna/docusate and does not have documented bowel movement for 8 days, please consider changing senna/docusate from PRN to scheduled. 3. Atrial fibrillation/coronary artery disease: carvedilol 3.125 mg PO BID, amiodarone 100 mg PO daily, aspirin 81 mg PO daily, losartan 50 mg PO daily, atorvastatin 40 mg PO QHS, nitroglycerin 0.4 mg PO Q5Min PRN chest pain. The patient's blood pressures have been consistently elevated, please consider increasing losartan from 50 mg to 100 mg PO daily. Date Date of Note:: 07/11/23 Documented by User: Dr. Good Lizama MD 07/11/23 08:18 TCU RX Drug Regimen Review Provider Comments Provider responsibility Provider Comments to Recommendations by Pharmacy: Agree
[2023-07-11] MEDS: Carvedilol 3.125 MG TABLET PO ×2 (08:18→16:47)
[2023-07-11] MEDS: Potassium Chloride Oral Tablet 20 MEQ PO ×2 (08:19→16:47)
[2023-07-11] MEDS: Amiodarone 200 MG Tablet 100 MG PO (08:19)
[2023-07-11] MEDS: Tamsulosin HCl 0.4 MG Capsule PO (08:20)
[2023-07-11] MEDS: DULoxetine Hcl 60 MG Capsule PO (08:20)
[2023-07-11] MEDS: Aspirin E.C. 81 MG Tablet PO (08:20)
[2023-07-11] MEDS: Furosemide 40 MG Tablet PO (08:20)
[2023-07-11] MEDS: Mirabegron 50 MG TAB.ER.24H PO (08:20)
[2023-07-11] MEDS: Losartan Potassium 50 MG Tablet PO (08:20)
[2023-07-11] MEDS: Menthol/Lanolin/Calamine/Znox 113 GM Tube 1 APPLIC TOPICAL ×2 (08:21→21:15)
[2023-07-11] MEDS: Pantoprazole Sodium 40 MG Tablet PO (08:21)
[2023-07-11] MEDS: Enoxaparin 40 MG/0.4 ML Syringe SC (08:26)
[2023-07-11] MEDS: oxyCODONE 5 MG Tablet 2.5 MG PO ×2 (08:35→21:13)
[2023-07-11 08:41] VITALS: BP 143/72; PULSE 59
--- NOTE | 2023-07-11 11:26 | NURSING ---
PT LEFT FLOOR BY WHEEL CHAIR AT 10:20 AM FOR MRI AND RETURNED AT 11:25.
[2023-07-11] MEDS: Tuberculin,Purif.prot.deriv. 50 TU/ML Vial 0.1 ML ID (11:36)
[2023-07-11] MEDS: Miconazole Nitrate 43 GM Bottle 1 APPLIC TOPICAL ×2 (11:36→21:15)
[2023-07-11 12:50] VITALS: BP 136/71; PULSE 59; RESP 16; TEMP 36.3; O2SAT 92
[2023-07-11] MEDS: traMADol 50 MG Tablet 100 MG PO (14:11)
--- NOTE | 2023-07-11 14:14 | NURSING ---
PT AND FAMILY UPDATED ON POSITIVE COVID ON FLOOR.
--- NOTE | 2023-07-11 15:07 | NURSING ---
Addendum entered by Collette Lassiter 07/17/23 10:48: Patient and decided they do not want him to have the covid vaccine at this time. Original Note: DISCUSSED AND ASKED PT AND IF PT WOULD LIKE THE NEW COVID BOOSTER. BOTH UNSURE AND STATED THEY WOULD LIKE TO DISCUSS IT FIRST AND WILL LET STAFF KNOW. ALSO GAVE PT HOME MEDS BACK TO TAKE HOME. LINZESS AND CLOBETASOL CREAM. RN AWARE
--- NOTE | 2023-07-11 16:17 | NURSING ---
Notified patient and family that patient tested covid positive.
[2023-07-11] MEDS: Atorvastatin Calcium 40 MG Tablet PO (21:10)
[2023-07-11] MEDS: Mirtazapine 30 MG Tablet PO (21:10)
[2023-07-12] MEDS: Acetaminophen 500 MG Tablet 1000 MG PO ×3 (06:06→21:14)
[2023-07-12] MEDS: Levothyroxine 25 MCG TABLET PO (06:06)
[2023-07-12] MEDS: Amiodarone 200 MG Tablet 100 MG PO (08:41)
[2023-07-12] MEDS: Potassium Chloride Oral Tablet 20 MEQ PO ×2 (08:41→17:08)
[2023-07-12] MEDS: Carvedilol 3.125 MG TABLET PO ×2 (08:41→17:08)
[2023-07-12] MEDS: Aspirin E.C. 81 MG Tablet PO (08:42)
[2023-07-12] MEDS: Tamsulosin HCl 0.4 MG Capsule PO (08:42)
[2023-07-12] MEDS: DULoxetine Hcl 60 MG Capsule PO (08:42)
[2023-07-12] MEDS: Losartan Potassium 50 MG Tablet PO (08:42)
[2023-07-12] MEDS: Furosemide 40 MG Tablet PO (08:43)
[2023-07-12] MEDS: Mirabegron 50 MG TAB.ER.24H PO (08:43)
[2023-07-12] MEDS: Pantoprazole Sodium 40 MG Tablet PO (08:43)
[2023-07-12] MEDS: Enoxaparin 40 MG/0.4 ML Syringe SC (08:43)
[2023-07-12] MEDS: Menthol/Lanolin/Calamine/Znox 113 GM Tube 1 APPLIC TOPICAL ×2 (08:46→21:13)
[2023-07-12] MEDS: Miconazole Nitrate 43 GM Bottle 1 APPLIC TOPICAL ×2 (08:46→21:13)
[2023-07-12 14:33] VITALS: BP 134/64; PULSE 62; RESP 16; TEMP 36.2; O2SAT 93
[2023-07-12] MEDS: Arthritis Pain Compound 60 CLICK TUBE TOPICAL (15:23)
--- NOTE | 2023-07-12 15:34 | CHAPLAIN ---
Type of Pastoral Visit _x__ Initial Visit ___ Follow-up Visit ___ On-call Visit ___ General Patient Visit ___ Spiritual Assessment ___ Family Conference ___ Bereavement ___ Rapid Response ___ Code Blue ___ Other (describe below) Pastoral Care Referral From _x__ Patient ___ Family ___ Nurse ___ Physician ___ Cooperage Shop Supervisor ___ Personal Banking Assistant ___ Other (describe below) Sacrament/Intervention ___ Active listening ___ Anointing ___ Muslim ___ Bereavement ___ Communion ___ Bindu exploration ___ ___ Life review ___ Prayer ___ Reconciliation ___ Sacrament of Sick _x__ Supportive presence ___ Wedding ___ Other (describe below) Pastoral Comments patient is watching TV and keeps his focus on that; offer of support and presence given; asked pt how he is managing and what needs he might want to address; pt states that he has good support from his and his friends; pt states that he has no needs or concerns
[2023-07-12 20:06] VITALS: PULSE 56; RESP 16; O2SAT 94
[2023-07-12] MEDS: Mirtazapine 30 MG Tablet PO (21:14)
[2023-07-12] MEDS: Atorvastatin Calcium 40 MG Tablet PO (21:14)
[2023-07-12] MEDS: traMADol 50 MG Tablet 100 MG PO (21:18)
[2023-07-13] MEDS: Levothyroxine 25 MCG TABLET PO (05:08)
[2023-07-13] MEDS: Acetaminophen 500 MG Tablet 1000 MG PO ×3 (05:09→20:50)
[2023-07-13] MEDS: Carvedilol 3.125 MG TABLET PO ×2 (08:14→16:39)
[2023-07-13] MEDS: Potassium Chloride Oral Tablet 20 MEQ PO ×2 (08:14→16:39)
[2023-07-13] MEDS: Amiodarone 200 MG Tablet 100 MG PO (08:15)
[2023-07-13] MEDS: Losartan Potassium 50 MG Tablet PO (08:16)
[2023-07-13] MEDS: Tamsulosin HCl 0.4 MG Capsule PO (08:16)
[2023-07-13] MEDS: Furosemide 40 MG Tablet PO (08:16)
[2023-07-13] MEDS: Aspirin E.C. 81 MG Tablet PO (08:16)
[2023-07-13] MEDS: DULoxetine Hcl 60 MG Capsule PO (08:16)
[2023-07-13] MEDS: Enoxaparin 40 MG/0.4 ML Syringe SC (08:17)
[2023-07-13] MEDS: Pantoprazole Sodium 40 MG Tablet PO (08:17)
[2023-07-13] MEDS: Mirabegron 50 MG TAB.ER.24H PO (08:17)
[2023-07-13 08:28] VITALS: BP 138/71; PULSE 58
[2023-07-13 10:00] VITALS: PULSE 56; RESP 16; O2SAT 97
[2023-07-13] MEDS: Miconazole Nitrate 43 GM Bottle 1 APPLIC TOPICAL ×2 (10:43→20:49)
[2023-07-13] MEDS: Menthol/Lanolin/Calamine/Znox 113 GM Tube 1 APPLIC TOPICAL ×2 (10:43→20:49)
[2023-07-13] MEDS: traMADol 50 MG Tablet 100 MG PO ×2 (13:14→20:55)
[2023-07-13 16:00] VITALS: BP 127/71; PULSE 63; RESP 14; TEMP 37.1; O2SAT 92
--- NOTE | 2023-07-13 16:00 | NURSING ---
Pt left at [address] Noble appointment, returned at 1530 via wheelchair with . Pt had cystoscopy procedure in-office, returns with: one-time dose of Ciprofloxacin 500mg, new order for Proscar 5mg daily, and instructions to continue Flomax and Myrbetriq. RN aware.
[2023-07-13] MEDS: Ciprofloxacin 500 MG Tablet PO (16:39)
[2023-07-13] MEDS: Arthritis Pain Compound 60 CLICK TUBE TOPICAL (20:49)
[2023-07-13] MEDS: Mirtazapine 30 MG Tablet PO (20:50)
[2023-07-13] MEDS: Atorvastatin Calcium 40 MG Tablet PO (20:51)
[2023-07-14] MEDS: Acetaminophen 500 MG Tablet 1000 MG PO ×3 (05:57→21:42)
[2023-07-14] MEDS: Arthritis Pain Compound 60 CLICK TUBE TOPICAL ×2 (05:58→16:13)
[2023-07-14] MEDS: Levothyroxine 25 MCG TABLET PO (05:58)
[2023-07-14 06:10] VITALS: O2SAT 95
[2023-07-14] MEDS: Miconazole Nitrate 43 GM Bottle 1 APPLIC TOPICAL ×2 (08:22→21:41)
[2023-07-14] MEDS: Menthol/Lanolin/Calamine/Znox 113 GM Tube 1 APPLIC TOPICAL ×2 (08:22→21:41)
[2023-07-14] MEDS: Aspirin E.C. 81 MG Tablet PO (08:26)
[2023-07-14] MEDS: oxyCODONE 5 MG Tablet 2.5 MG PO (08:26)
[2023-07-14] MEDS: Furosemide 40 MG Tablet PO (08:26)
[2023-07-14] MEDS: Carvedilol 3.125 MG TABLET PO ×2 (08:27→16:14)
[2023-07-14] MEDS: Tamsulosin HCl 0.4 MG Capsule PO (08:27)
[2023-07-14] MEDS: DULoxetine Hcl 60 MG Capsule PO (08:27)
[2023-07-14] MEDS: Mirabegron 50 MG TAB.ER.24H PO (08:27)
[2023-07-14] MEDS: Enoxaparin 40 MG/0.4 ML Syringe SC (08:27)
[2023-07-14] MEDS: Finasteride 5 MG Tablet PO (08:27)
[2023-07-14] MEDS: Losartan Potassium 50 MG Tablet PO (08:27)
[2023-07-14] MEDS: Amiodarone 200 MG Tablet 100 MG PO (08:27)
[2023-07-14] MEDS: Pantoprazole Sodium 40 MG Tablet PO (08:27)
[2023-07-14] MEDS: Potassium Chloride Oral Tablet 20 MEQ PO ×2 (08:28→16:13)
--- NOTE | 2023-07-14 12:34 | NURSING ---
pt returned from dr dewitt appt with orders for f/u 4 wks, WBAT, posterior hip precautions. xrays & wound look good.
[2023-07-14 14:37] VITALS: BP 120/57; PULSE 60; RESP 14; TEMP 36.1; O2SAT 93
[2023-07-14] MEDS: traMADol 50 MG Tablet 100 MG PO ×2 (16:13→23:21)
[2023-07-14 16:20] VITALS: PULSE 62; RESP 14; O2SAT 96
[2023-07-14] MEDS: Mirtazapine 30 MG Tablet PO (21:42)
[2023-07-14] MEDS: Atorvastatin Calcium 40 MG Tablet PO (21:42)
[2023-07-15] MEDS: Acetaminophen 500 MG Tablet 1000 MG PO ×3 (06:35→21:41)
[2023-07-15] MEDS: Levothyroxine 50 MCG Tablet PO (06:35)
[2023-07-15] MEDS: Carvedilol 3.125 MG TABLET PO ×2 (08:32→16:29)
[2023-07-15] MEDS: Amiodarone 200 MG Tablet 100 MG PO (08:33)
[2023-07-15] MEDS: Potassium Chloride Oral Tablet 20 MEQ PO ×2 (08:33→16:29)
[2023-07-15] MEDS: Aspirin E.C. 81 MG Tablet PO (08:35)
[2023-07-15] MEDS: DULoxetine Hcl 60 MG Capsule PO (08:35)
[2023-07-15] MEDS: Losartan Potassium 50 MG Tablet PO (08:35)
[2023-07-15] MEDS: Tamsulosin HCl 0.4 MG Capsule PO (08:36)
[2023-07-15] MEDS: Enoxaparin 40 MG/0.4 ML Syringe SC (08:36)
[2023-07-15] MEDS: Furosemide 40 MG Tablet PO (08:36)
[2023-07-15] MEDS: Finasteride 5 MG Tablet PO (08:37)
[2023-07-15] MEDS: Mirabegron 50 MG TAB.ER.24H PO (08:37)
[2023-07-15] MEDS: Pantoprazole Sodium 40 MG Tablet PO (08:37)
[2023-07-15] MEDS: Menthol/Lanolin/Calamine/Znox 113 GM Tube 1 APPLIC TOPICAL ×2 (08:43→21:40)
[2023-07-15] MEDS: Miconazole Nitrate 43 GM Bottle 1 APPLIC TOPICAL ×2 (08:43→21:42)
[2023-07-15 10:00] VITALS: PULSE 60; RESP 14; O2SAT 94
[2023-07-15 15:36] VITALS: BP 132/74; PULSE 58; RESP 16; TEMP 36.4; O2SAT 94
[2023-07-15] MEDS: traMADol 50 MG Tablet 100 MG PO (16:36)
[2023-07-15] MEDS: Atorvastatin Calcium 40 MG Tablet PO (21:41)
[2023-07-15] MEDS: Mirtazapine 30 MG Tablet PO (21:41)
[2023-07-16] MEDS: Levothyroxine 50 MCG Tablet PO (06:43)
[2023-07-16] MEDS: Acetaminophen 500 MG Tablet 1000 MG PO ×3 (06:43→21:10)
[2023-07-16 06:51] VITALS: O2SAT 93
[2023-07-16] MEDS: DULoxetine Hcl 60 MG Capsule PO (08:02)
[2023-07-16] MEDS: Potassium Chloride Oral Tablet 20 MEQ PO ×2 (08:02→17:49)
[2023-07-16] MEDS: Losartan Potassium 50 MG Tablet PO (08:02)
[2023-07-16] MEDS: Furosemide 40 MG Tablet PO (08:02)
[2023-07-16] MEDS: Carvedilol 3.125 MG TABLET PO ×2 (08:03→17:49)
[2023-07-16] MEDS: Aspirin E.C. 81 MG Tablet PO (08:04)
[2023-07-16] MEDS: Amiodarone 200 MG Tablet 100 MG PO (08:04)
[2023-07-16] MEDS: Mirabegron 50 MG TAB.ER.24H PO (08:04)
[2023-07-16] MEDS: Finasteride 5 MG Tablet PO (08:04)
[2023-07-16] MEDS: Pantoprazole Sodium 40 MG Tablet PO (08:04)
[2023-07-16] MEDS: Enoxaparin 40 MG/0.4 ML Syringe SC (08:05)
[2023-07-16] MEDS: Tamsulosin HCl 0.4 MG Capsule PO (08:05)
[2023-07-16] MEDS: traMADol 50 MG Tablet 100 MG PO ×2 (08:08→14:41)
[2023-07-16] MEDS: Miconazole Nitrate 43 GM Bottle 1 APPLIC TOPICAL ×2 (08:10→21:11)
[2023-07-16] MEDS: Menthol/Lanolin/Calamine/Znox 113 GM Tube 1 APPLIC TOPICAL ×2 (08:10→21:11)
[2023-07-16] MEDS: Arthritis Pain Compound 60 CLICK TUBE TOPICAL (14:41)
[2023-07-16 16:00] VITALS: BP 152/82; PULSE 62; RESP 14; TEMP 36.4; O2SAT 97
[2023-07-16 19:45] VITALS: PULSE 58; RESP 16; O2SAT 92
[2023-07-16] MEDS: Atorvastatin Calcium 40 MG Tablet PO (21:11)
[2023-07-16] MEDS: Mirtazapine 30 MG Tablet PO (21:11)
[2023-07-17] MEDS: Levothyroxine 25 MCG TABLET PO (06:02)
[2023-07-17] MEDS: Acetaminophen 500 MG Tablet 1000 MG PO ×3 (06:02→20:52)
[2023-07-17] MEDS: traMADol 50 MG Tablet 100 MG PO ×2 (06:02→17:00)
[2023-07-17 06:24] VITALS: PULSE 62; RESP 14; O2SAT 98
[2023-07-17 07:15] VITALS: O2SAT 94
[2023-07-17] MEDS: Enoxaparin 40 MG/0.4 ML Syringe SC (09:04)
[2023-07-17] MEDS: Amiodarone 200 MG Tablet 100 MG PO (09:04)
[2023-07-17] MEDS: Aspirin E.C. 81 MG Tablet PO (09:05)
[2023-07-17] MEDS: Losartan Potassium 50 MG Tablet PO (09:05)
[2023-07-17] MEDS: Tamsulosin HCl 0.4 MG Capsule PO (09:05)
[2023-07-17] MEDS: DULoxetine Hcl 60 MG Capsule PO (09:05)
[2023-07-17] MEDS: Furosemide 40 MG Tablet PO (09:05)
[2023-07-17] MEDS: Pantoprazole Sodium 40 MG Tablet PO (09:05)
[2023-07-17] MEDS: Carvedilol 3.125 MG TABLET PO ×2 (09:05→17:01)
[2023-07-17] MEDS: Potassium Chloride Oral Tablet 20 MEQ PO ×2 (09:05→17:01)
[2023-07-17] MEDS: Finasteride 5 MG Tablet PO (09:05)
[2023-07-17] MEDS: Mirabegron 50 MG TAB.ER.24H PO (09:05)
--- NOTE | 2023-07-17 09:23 | NURSING ---
Blanket Washer Note; MDS Complete
--- NOTE | 2023-07-17 10:48 | CASEMGMT ---
Social Work BIMS () and PHQ-2 () completed for MDS assessment. Mis Edge MSW ESCORT BLIND
[2023-07-17 13:05] VITALS: BP 113/71; PULSE 54; RESP 16; TEMP 36.2; O2SAT 93
[2023-07-17] MEDS: oxyCODONE 5 MG Tablet 2.5 MG PO ×2 (13:55→20:59)
[2023-07-17] MEDS: Arthritis Pain Compound 60 CLICK TUBE TOPICAL ×2 (13:55→20:52)
[2023-07-17] MEDS: Senna/Docusate Sodium 1 Tablet 2 TABLET PO (17:00)
[2023-07-17] MEDS: Mirtazapine 30 MG Tablet PO (20:52)
[2023-07-17] MEDS: Atorvastatin Calcium 40 MG Tablet PO (20:52)
[2023-07-17] MEDS: Miconazole Nitrate 43 GM Bottle 1 APPLIC TOPICAL (20:59)
[2023-07-17] MEDS: Menthol/Lanolin/Calamine/Znox 113 GM Tube 1 APPLIC TOPICAL (21:00)
[2023-07-18] MEDS: Levothyroxine 25 MCG TABLET PO (05:14)
[2023-07-18] MEDS: Acetaminophen 500 MG Tablet 1000 MG PO ×3 (05:14→21:16)
[2023-07-18 05:29] LABS: Absolute Lymphocyte Count 1.25 X10^3/uL (0.83-4.51); Absolute Neutrophil Count 2.9 X10^3/uL (2.0-7.7); Basophil# 0.04 X10^3/uL; Basophil% 0.8 % (0-1); Eosinophils% 4.1 % (0-5); Hematocrit 34.8 % (40-54); Hemoglobin 10.6 g/dL (13.0-16.5); Lymphocyte # 1.25 X10^3/ul (0.83-4.51); Lymphocyte % 25.4 % (19-41); Mean Corp Hgb Conc 30.5 g/dL (32-36); Mean Corpuscular Volume 101.8 fL (80-94); Mean Platelet Vol. 9.1 fl (6.2-12.0); Monocyte# 0.55 X10^3/uL; Monocyte% 11.2 % (0-10); NRBC Flagged by Analyzer 0 % (0-5); Neutrophil # 2.86 X10^3/uL (2.7-7.7); Neutrophil % 58.1 % (47-70); Platelet Count 246 K/mm3 (150-450); RBC Distribution Width CV 14.6 % (11.6-14.6); RBC Distribution Width SD 54.6 fl (35.1-43.9); Red Blood Count 3.42 M/mm3 (4.6-6.2); White Blood Count 4.9 K/mm3 (4.4-11.0)
[2023-07-18 05:52] LABS: Anion Gap 1 (5-15); BUN 17 mg/dL (7-18); BUN/Creat Ratio 16.5 RATIO (10-20); Chloride 107 mmol/L (98-107); Creatinine, Serum 1.03 mg/dL (0.70-1.30); EST Glomerular Filtration Rate 76 mL/min (>60); Est Glom Filt Rate - Afr Amer 92 mL/min (>60); Estimated Creatinine Clearance 66.73 ml/min; Glucose 89 mg/dL (74-106); Potassium 4.8 mmol/L (3.5-5.1); Sodium Level 140 mmol/L (136-145)
[2023-07-18] MEDS: Amiodarone 200 MG Tablet 100 MG PO (08:06)
[2023-07-18] MEDS: DULoxetine Hcl 60 MG Capsule PO (08:06)
[2023-07-18] MEDS: Potassium Chloride Oral Tablet 20 MEQ PO ×2 (08:06→17:27)
[2023-07-18] MEDS: Carvedilol 3.125 MG TABLET PO ×2 (08:06→17:27)
[2023-07-18] MEDS: Losartan Potassium 50 MG Tablet PO (08:06)
[2023-07-18] MEDS: Tamsulosin HCl 0.4 MG Capsule PO (08:07)
[2023-07-18] MEDS: Pantoprazole Sodium 40 MG Tablet PO ×2 (08:07)
[2023-07-18] MEDS: Aspirin E.C. 81 MG Tablet PO (08:07)
[2023-07-18] MEDS: Furosemide 40 MG Tablet PO (08:07)
[2023-07-18] MEDS: Finasteride 5 MG Tablet PO (08:07)
[2023-07-18] MEDS: Mirabegron 50 MG TAB.ER.24H PO (08:07)
[2023-07-18] MEDS: Enoxaparin 40 MG/0.4 ML Syringe SC (08:14)
[2023-07-18] MEDS: Menthol/Lanolin/Calamine/Znox 113 GM Tube 1 APPLIC TOPICAL ×2 (08:16→21:17)
[2023-07-18] MEDS: Miconazole Nitrate 43 GM Bottle 1 APPLIC TOPICAL ×2 (08:19→21:17)
[2023-07-18 08:20] VITALS: BP 148/70; PULSE 60
[2023-07-18 10:57] VITALS: BMI 29.3
[2023-07-18 11:30] VITALS: PULSE 54; RESP 18; O2SAT 93
--- NOTE | 2023-07-18 13:29 | NURSING ---
PT LEFT FLOOR FOR DR.APPOINTMENT WITH AT 1320 WITH BY WHEEL CHAIR.
--- NOTE | 2023-07-18 15:22 | NURSING ---
PT RETURNED TO FLOOR AT 1500. NNO,FOLLOW UP IN 2 WEEKS ON 07/31/23 AT 10;45AM.
[2023-07-18 15:47] VITALS: BP 131/71; PULSE 57; RESP 14; TEMP 37.2; O2SAT 95
[2023-07-18] MEDS: traMADol 50 MG Tablet 100 MG PO (21:15)
[2023-07-18] MEDS: Atorvastatin Calcium 40 MG Tablet PO (21:17)
[2023-07-18] MEDS: Mirtazapine 30 MG Tablet PO (21:17)
[2023-07-19] MEDS: Acetaminophen 500 MG Tablet 1000 MG PO ×3 (06:10→21:37)
[2023-07-19] MEDS: Levothyroxine 25 MCG TABLET PO (06:11)
[2023-07-19] MEDS: Senna/Docusate Sodium 1 Tablet 2 TABLET PO (06:25)
[2023-07-19 06:35] VITALS: PULSE 55; RESP 16; O2SAT 96
[2023-07-19 07:41] VITALS: BP 141/66; RESP 18; TEMP 36.2
[2023-07-19] MEDS: Carvedilol 3.125 MG TABLET PO ×2 (07:43→16:58)
[2023-07-19] MEDS: Potassium Chloride Oral Tablet 20 MEQ PO ×2 (07:43→16:59)
[2023-07-19] MEDS: Amiodarone 200 MG Tablet 100 MG PO (07:44)
[2023-07-19] MEDS: Losartan Potassium 50 MG Tablet PO (07:44)
[2023-07-19] MEDS: DULoxetine Hcl 60 MG Capsule PO (07:44)
[2023-07-19] MEDS: Furosemide 40 MG Tablet PO (07:45)
[2023-07-19] MEDS: Aspirin E.C. 81 MG Tablet PO (07:45)
[2023-07-19] MEDS: Enoxaparin 40 MG/0.4 ML Syringe SC (07:45)
[2023-07-19] MEDS: Tamsulosin HCl 0.4 MG Capsule PO (07:45)
[2023-07-19] MEDS: Mirabegron 50 MG TAB.ER.24H PO (07:46)
[2023-07-19] MEDS: Finasteride 5 MG Tablet PO (07:46)
[2023-07-19] MEDS: Miconazole Nitrate 43 GM Bottle 1 APPLIC TOPICAL ×2 (07:52→21:37)
[2023-07-19] MEDS: Menthol/Lanolin/Calamine/Znox 113 GM Tube 1 APPLIC TOPICAL ×2 (07:53→21:36)
--- NOTE | 2023-07-19 09:52 | NURSING ---
Addendum entered by Geri Lorenzo 07/19/23 10:55: Patient had large, firm bowel movement. Abdomen non-tender, soft. Bowel sounds normo-active x4 quadrants. Original Note: Patient received new order for Magnesium Citrate due to day 4 with no bowel movement. Pt took one sip, then refused med stating it tastes bad. I had a bowel movement yesterday.
--- NOTE | 2023-07-19 13:26 | CASEMGMT ---
Social Work IDT met with patient and for care plan meeting. Discussed patient's progress in PT/OT/ST/SN. Educated to Medicare benefit and admitted to TCU on day 21. aware pt is in copay days. Inquired about DC plan and timeframe. expressed some concern with mobility and toileting tasks still. IDT problem solved those tasks and how some adjustments will be needed at home. Discussed [place] and CERTIFIED ORTHOTIST to schedule for when needs to run errands at home. Offered shared care prior to DC. Therapy will continue working with pt and will notify with DC date. SW will follow up as well. Will continue to follow. Mis Edge NATURAL SCIENCES PROFESSOR SOCIOLOGY RESEARCH ASSISTANT
[2023-07-19 16:00] VITALS: BP 119/67; PULSE 60; RESP 16; TEMP 36.9; O2SAT 92
[2023-07-19] MEDS: traMADol 50 MG Tablet 100 MG PO (21:36)
[2023-07-19] MEDS: Atorvastatin Calcium 40 MG Tablet PO (21:37)
[2023-07-19] MEDS: Mirtazapine 30 MG Tablet PO (21:38)
[2023-07-20] MEDS: Levothyroxine 25 MCG TABLET PO (06:06)
[2023-07-20] MEDS: Acetaminophen 500 MG Tablet 1000 MG PO ×3 (06:06→22:40)
[2023-07-20 07:58] VITALS: BP 103/70; PULSE 65; RESP 16; TEMP 36.2; O2SAT 92
[2023-07-20] MEDS: Potassium Chloride Oral Tablet 20 MEQ PO ×2 (08:02→17:16)
[2023-07-20] MEDS: Carvedilol 3.125 MG TABLET PO ×2 (08:02→17:16)
[2023-07-20] MEDS: Miconazole Nitrate 43 GM Bottle 1 APPLIC TOPICAL ×2 (08:03→22:40)
[2023-07-20] MEDS: Menthol/Lanolin/Calamine/Znox 113 GM Tube 1 APPLIC TOPICAL ×2 (08:03→22:41)
[2023-07-20] MEDS: Losartan Potassium 50 MG Tablet PO (08:04)
[2023-07-20] MEDS: Amiodarone 200 MG Tablet 100 MG PO (08:04)
[2023-07-20] MEDS: Aspirin E.C. 81 MG Tablet PO (08:05)
[2023-07-20] MEDS: DULoxetine Hcl 60 MG Capsule PO (08:05)
[2023-07-20] MEDS: Furosemide 40 MG Tablet PO (08:05)
[2023-07-20] MEDS: Enoxaparin 40 MG/0.4 ML Syringe SC (08:05)
[2023-07-20] MEDS: Tamsulosin HCl 0.4 MG Capsule PO (08:05)
[2023-07-20] MEDS: Finasteride 5 MG Tablet PO (08:06)
[2023-07-20] MEDS: Mirabegron 50 MG TAB.ER.24H PO (08:06)
[2023-07-20] MEDS: Pantoprazole Sodium 40 MG Tablet PO (08:07)
[2023-07-20] MEDS: traMADol 50 MG Tablet 100 MG PO ×2 (11:08→17:16)
--- NOTE | 2023-07-20 11:15 | MDS.RN ---
Information for the mds was obtained from review of the clinical record, interview of resident, staff, and direct observation of resident's care.
[2023-07-20 17:19] VITALS: BP 147/78; PULSE 59
[2023-07-20 19:40] VITALS: PULSE 60; RESP 16; O2SAT 94
[2023-07-20] MEDS: oxyCODONE 5 MG Tablet 2.5 MG PO (22:39)
[2023-07-20] MEDS: Atorvastatin Calcium 40 MG Tablet PO (22:40)
[2023-07-20] MEDS: Mirtazapine 30 MG Tablet PO (22:40)
[2023-07-21] MEDS: Acetaminophen 500 MG Tablet 1000 MG PO ×3 (06:09→20:32)
[2023-07-21] MEDS: Levothyroxine 25 MCG TABLET PO (06:09)
[2023-07-21 06:24] VITALS: PULSE 63; RESP 18; O2SAT 97
[2023-07-21 07:45] VITALS: BP 142/75; PULSE 64
[2023-07-21] MEDS: Carvedilol 3.125 MG TABLET PO ×2 (07:47→16:16)
[2023-07-21] MEDS: Amiodarone 200 MG Tablet 100 MG PO (07:48)
[2023-07-21] MEDS: Menthol/Lanolin/Calamine/Znox 113 GM Tube 1 APPLIC TOPICAL ×2 (07:48→20:36)
[2023-07-21] MEDS: Losartan Potassium 50 MG Tablet PO (07:49)
[2023-07-21] MEDS: Aspirin E.C. 81 MG Tablet PO (07:49)
[2023-07-21] MEDS: Miconazole Nitrate 43 GM Bottle 1 APPLIC TOPICAL ×2 (07:49→20:36)
[2023-07-21] MEDS: DULoxetine Hcl 60 MG Capsule PO (07:49)
[2023-07-21] MEDS: Furosemide 40 MG Tablet PO (07:50)
[2023-07-21] MEDS: Enoxaparin 40 MG/0.4 ML Syringe SC (07:50)
[2023-07-21] MEDS: Mirabegron 50 MG TAB.ER.24H PO (07:50)
[2023-07-21] MEDS: Tamsulosin HCl 0.4 MG Capsule PO (07:50)
[2023-07-21] MEDS: Finasteride 5 MG Tablet PO (07:51)
[2023-07-21] MEDS: Pantoprazole Sodium 40 MG Tablet PO (07:51)
[2023-07-21] MEDS: Potassium Chloride Oral Tablet 20 MEQ PO ×2 (07:57→16:16)
[2023-07-21] MEDS: oxyCODONE 5 MG Tablet 2.5 MG PO (09:33)
[2023-07-21 12:06] VITALS: BP 128/72; PULSE 56; RESP 14; TEMP 36.3; O2SAT 94
[2023-07-21] MEDS: traMADol 50 MG Tablet 100 MG PO (14:02)
--- NOTE | 2023-07-21 17:21 | CHAPLAIN ---
Type of Pastoral Visit ___ Initial Visit _x__ Follow-up Visit ___ On-call Visit ___ General Patient Visit ___ Spiritual Assessment ___ Family Conference ___ Bereavement ___ Rapid Response ___ Code Blue ___ Other (describe below) Pastoral Care Referral From __x_ Patient ___ Family ___ Nurse ___ Physician ___ Contracts Officer ___ Game Bird Farmer ___ Other (describe below) Sacrament/Intervention _x__ Active listening ___ Anointing ___ Hinduism ___ Bereavement ___ Communion ___ Bindu exploration ___ ___ Life review ___ Prayer ___ Reconciliation ___ Sacrament of Sick _x__ Supportive presence ___ Wedding ___ Other (describe below) Pastoral Comments
[2023-07-21] MEDS: Atorvastatin Calcium 40 MG Tablet PO (20:31)
[2023-07-21] MEDS: Mirtazapine 30 MG Tablet PO (20:31)
[2023-07-22] MEDS: Acetaminophen 500 MG Tablet 1000 MG PO ×3 (05:19→20:05)
[2023-07-22] MEDS: Levothyroxine 50 MCG Tablet PO (05:20)
[2023-07-22] MEDS: oxyCODONE 5 MG Tablet 2.5 MG PO (07:54)
[2023-07-22] MEDS: Finasteride 5 MG Tablet PO (07:55)
[2023-07-22] MEDS: DULoxetine Hcl 60 MG Capsule PO (07:55)
[2023-07-22] MEDS: Furosemide 40 MG Tablet PO (07:55)
[2023-07-22] MEDS: Losartan Potassium 50 MG Tablet PO (07:56)
[2023-07-22] MEDS: Amiodarone 200 MG Tablet 100 MG PO (07:56)
[2023-07-22] MEDS: Carvedilol 3.125 MG TABLET PO ×2 (07:57→17:13)
[2023-07-22] MEDS: Tamsulosin HCl 0.4 MG Capsule PO (07:57)
[2023-07-22] MEDS: Aspirin E.C. 81 MG Tablet PO (07:57)
[2023-07-22] MEDS: Mirabegron 50 MG TAB.ER.24H PO (07:57)
[2023-07-22] MEDS: Enoxaparin 40 MG/0.4 ML Syringe SC (07:58)
[2023-07-22] MEDS: Pantoprazole Sodium 40 MG Tablet PO (07:58)
[2023-07-22] MEDS: Potassium Chloride Oral Tablet 20 MEQ PO ×2 (07:59→17:13)
[2023-07-22] MEDS: Menthol/Lanolin/Calamine/Znox 113 GM Tube 1 APPLIC TOPICAL ×2 (08:00→20:13)
[2023-07-22] MEDS: Miconazole Nitrate 43 GM Bottle 1 APPLIC TOPICAL ×2 (08:00→20:08)
[2023-07-22 08:08] VITALS: BP 144/72; PULSE 58; RESP 18
[2023-07-22] MEDS: traMADol 50 MG Tablet 100 MG PO (11:26)
[2023-07-22 15:10] VITALS: BP 113/59; PULSE 59; RESP 18; TEMP 37; O2SAT 93
[2023-07-22] MEDS: Atorvastatin Calcium 40 MG Tablet PO ×2 (20:05)
[2023-07-22] MEDS: Mirtazapine 30 MG Tablet PO (20:08)
[2023-07-23] MEDS: Acetaminophen 500 MG Tablet 1000 MG PO ×3 (05:54→20:31)
[2023-07-23] MEDS: Levothyroxine 50 MCG Tablet PO (05:54)
[2023-07-23] MEDS: Miconazole Nitrate 43 GM Bottle 1 APPLIC TOPICAL ×2 (09:24→20:32)
[2023-07-23] MEDS: Potassium Chloride Oral Tablet 20 MEQ PO ×2 (09:25→17:18)
[2023-07-23] MEDS: Mirabegron 50 MG TAB.ER.24H PO (09:26)
[2023-07-23] MEDS: Carvedilol 3.125 MG TABLET PO ×2 (09:26→17:18)
[2023-07-23] MEDS: Pantoprazole Sodium 40 MG Tablet PO (09:27)
[2023-07-23] MEDS: Enoxaparin 40 MG/0.4 ML Syringe SC (09:27)
[2023-07-23] MEDS: Aspirin E.C. 81 MG Tablet PO (09:27)
[2023-07-23] MEDS: Furosemide 40 MG Tablet PO (09:27)
[2023-07-23] MEDS: Tamsulosin HCl 0.4 MG Capsule PO (09:27)
[2023-07-23] MEDS: Finasteride 5 MG Tablet PO (09:28)
[2023-07-23] MEDS: Losartan Potassium 50 MG Tablet PO (09:28)
[2023-07-23] MEDS: Amiodarone 200 MG Tablet 100 MG PO (09:29)
[2023-07-23] MEDS: DULoxetine Hcl 60 MG Capsule PO (09:29)
[2023-07-23] MEDS: Menthol/Lanolin/Calamine/Znox 113 GM Tube 1 APPLIC TOPICAL ×2 (09:32→20:34)
[2023-07-23 09:33] VITALS: BP 146/75; PULSE 60; RESP 18; O2SAT 98
[2023-07-23 12:08] VITALS: BP 137/67; PULSE 56; RESP 14; TEMP 36.2; O2SAT 100
--- NOTE | 2023-07-23 13:13 | NURSING ---
PT STATED HE FELT CONSTIPATED. OFFERED A PRN PT STATED I WANT PRUNE JUICE. GAVE PRUNE JUICE AND EDUCATED PT ON DRINKING WATER.
[2023-07-23] MEDS: oxyCODONE 5 MG Tablet 2.5 MG PO (20:30)
[2023-07-23] MEDS: Mirtazapine 30 MG Tablet PO (20:31)
[2023-07-23] MEDS: Senna/Docusate Sodium 1 Tablet 2 TABLET PO (20:31)
[2023-07-24] MEDS: Acetaminophen 500 MG Tablet 1000 MG PO ×3 (05:06→20:32)
[2023-07-24] MEDS: Levothyroxine 25 MCG TABLET PO (05:06)
[2023-07-24] MEDS: Furosemide 40 MG Tablet PO (08:06)
[2023-07-24] MEDS: Finasteride 5 MG Tablet PO (08:06)
[2023-07-24] MEDS: Amiodarone 200 MG Tablet 100 MG PO (08:06)
[2023-07-24] MEDS: Mirabegron 50 MG TAB.ER.24H PO (08:07)
[2023-07-24] MEDS: Potassium Chloride Oral Tablet 20 MEQ PO ×2 (08:07→16:24)
[2023-07-24] MEDS: Carvedilol 3.125 MG TABLET PO ×2 (08:07→16:25)
[2023-07-24] MEDS: Pantoprazole Sodium 40 MG Tablet PO (08:07)
[2023-07-24] MEDS: Tamsulosin HCl 0.4 MG Capsule PO (08:07)
[2023-07-24] MEDS: Enoxaparin 40 MG/0.4 ML Syringe SC (08:08)
[2023-07-24] MEDS: Losartan Potassium 50 MG Tablet PO (08:08)
[2023-07-24] MEDS: DULoxetine Hcl 60 MG Capsule PO (08:08)
[2023-07-24] MEDS: Aspirin E.C. 81 MG Tablet PO (08:08)
[2023-07-24] MEDS: traMADol 50 MG Tablet 100 MG PO ×2 (08:15→20:31)
[2023-07-24] MEDS: Miconazole Nitrate 43 GM Bottle 1 APPLIC TOPICAL ×2 (08:15→20:34)
[2023-07-24] MEDS: Menthol/Lanolin/Calamine/Znox 113 GM Tube 1 APPLIC TOPICAL ×2 (08:16→20:34)
[2023-07-24 14:59] VITALS: BP 129/67; PULSE 60; RESP 16; TEMP 36.6; O2SAT 95
--- NOTE | 2023-07-24 16:00 | NURSING ---
Patient seen dr. briseno in office today. Transported by . Dr. briseno states no new orders and patient only needs to f/u w/ him PRN for any new issues.
[2023-07-24] MEDS: Mirtazapine 30 MG Tablet PO (20:32)
[2023-07-24] MEDS: Atorvastatin Calcium 40 MG Tablet PO (20:32)
[2023-07-25] MEDS: Levothyroxine 25 MCG TABLET PO (05:23)
[2023-07-25] MEDS: Acetaminophen 500 MG Tablet 1000 MG PO ×3 (05:23→20:17)
[2023-07-25 05:50] LABS: Absolute Lymphocyte Count 1.62 X10^3/uL (0.83-4.51); Absolute Neutrophil Count 3.5 X10^3/uL (2.0-7.7); Basophil# 0.04 X10^3/uL; Basophil% 0.6 % (0-1); Eosinophil# 0.25 X10^3/uL; Eosinophils% 4.1 % (0-5); Hematocrit 36.6 % (40-54); Hemoglobin 11.1 g/dL (13.0-16.5); Lymphocyte # 1.62 X10^3/ul (0.83-4.51); Lymphocyte % 26.3 % (19-41); Mean Corp Hgb Conc 30.3 g/dL (32-36); Mean Corpuscular Hgb 30.5 pg (27.0-32.0); Mean Corpuscular Volume 100.5 fL (80-94); Mean Platelet Vol. 9.5 fl (6.2-12.0); Monocyte# 0.75 X10^3/uL; Monocyte% 12.2 % (0-10); NRBC Flagged by Analyzer 0 % (0-5); Neutrophil # 3.47 X10^3/uL (2.7-7.7); Neutrophil % 56.3 % (47-70); Platelet Count 273 K/mm3 (150-450); RBC Distribution Width CV 14.1 % (11.6-14.6); RBC Distribution Width SD 52.1 fl (35.1-43.9); Red Blood Count 3.64 M/mm3 (4.6-6.2); White Blood Count 6.2 K/mm3 (4.4-11.0)
[2023-07-25 06:30] LABS: Anion Gap 3 (5-15); BUN 18 mg/dL (7-18); Chloride 107 mmol/L (98-107); EST Glomerular Filtration Rate 78 mL/min (>60); Est Glom Filt Rate - Afr Amer 95 mL/min (>60); Estimated Creatinine Clearance 68.74 ml/min; Glucose 84 mg/dL (74-106); Potassium 3.8 mmol/L (3.5-5.1); Sodium Level 139 mmol/L (136-145)
[2023-07-25] MEDS: DULoxetine Hcl 60 MG Capsule PO (08:31)
[2023-07-25] MEDS: Aspirin E.C. 81 MG Tablet PO (08:31)
[2023-07-25] MEDS: traMADol 50 MG Tablet 100 MG PO ×2 (08:31→20:15)
[2023-07-25] MEDS: Pantoprazole Sodium 40 MG Tablet PO (08:32)
[2023-07-25] MEDS: Tamsulosin HCl 0.4 MG Capsule PO (08:32)
[2023-07-25] MEDS: Losartan Potassium 50 MG Tablet PO (08:32)
[2023-07-25] MEDS: Carvedilol 3.125 MG TABLET PO ×2 (08:32→17:38)
[2023-07-25] MEDS: Finasteride 5 MG Tablet PO (08:32)
[2023-07-25] MEDS: Mirabegron 50 MG TAB.ER.24H PO (08:32)
[2023-07-25] MEDS: Furosemide 40 MG Tablet PO (08:32)
[2023-07-25] MEDS: Amiodarone 200 MG Tablet 100 MG PO (08:32)
[2023-07-25] MEDS: Enoxaparin 40 MG/0.4 ML Syringe SC (08:32)
[2023-07-25] MEDS: Potassium Chloride Oral Tablet 20 MEQ PO ×2 (08:32→17:38)
[2023-07-25] MEDS: Miconazole Nitrate 43 GM Bottle 1 APPLIC TOPICAL ×2 (08:37→20:18)
[2023-07-25] MEDS: Menthol/Lanolin/Calamine/Znox 113 GM Tube 1 APPLIC TOPICAL ×2 (08:37→20:18)
[2023-07-25 09:30] VITALS: BMI 29.1
[2023-07-25 13:34] VITALS: BP 121/61; PULSE 62; RESP 16; TEMP 36.3; O2SAT 98
[2023-07-25] MEDS: Mirtazapine 30 MG Tablet PO (20:17)
[2023-07-25] MEDS: Atorvastatin Calcium 40 MG Tablet PO (20:18)
[2023-07-25 20:21] VITALS: O2SAT 96
[2023-07-26] MEDS: Levothyroxine 25 MCG TABLET PO (05:46)
[2023-07-26] MEDS: Acetaminophen 500 MG Tablet 1000 MG PO ×3 (05:47→20:26)
[2023-07-26 06:00] VITALS: O2SAT 98
[2023-07-26 08:15] VITALS: BP 127/59; PULSE 58; RESP 18; TEMP 36.5; O2SAT 94
[2023-07-26] MEDS: Menthol/Lanolin/Calamine/Znox 113 GM Tube 1 APPLIC TOPICAL ×2 (08:20→20:28)
[2023-07-26] MEDS: Miconazole Nitrate 43 GM Bottle 1 APPLIC TOPICAL ×2 (08:20→20:28)
[2023-07-26] MEDS: DULoxetine Hcl 60 MG Capsule PO (08:21)
[2023-07-26] MEDS: Aspirin E.C. 81 MG Tablet PO (08:21)
[2023-07-26] MEDS: Furosemide 40 MG Tablet PO (08:21)
[2023-07-26] MEDS: Losartan Potassium 50 MG Tablet PO (08:21)
[2023-07-26] MEDS: Potassium Chloride Oral Tablet 20 MEQ PO ×2 (08:21→17:14)
[2023-07-26] MEDS: Carvedilol 3.125 MG TABLET PO ×2 (08:21→17:14)
[2023-07-26] MEDS: Finasteride 5 MG Tablet PO (08:22)
[2023-07-26] MEDS: Pantoprazole Sodium 40 MG Tablet PO (08:22)
[2023-07-26] MEDS: Tamsulosin HCl 0.4 MG Capsule PO (08:22)
[2023-07-26] MEDS: Mirabegron 50 MG TAB.ER.24H PO (08:22)
[2023-07-26] MEDS: Amiodarone 200 MG Tablet 100 MG PO (08:22)
[2023-07-26] MEDS: Enoxaparin 40 MG/0.4 ML Syringe SC (08:23)
--- NOTE | 2023-07-26 18:24 | PCA ---
alarm checked and on with Maryjo
[2023-07-26] MEDS: traMADol 50 MG Tablet 100 MG PO (20:26)
[2023-07-26] MEDS: Atorvastatin Calcium 40 MG Tablet PO (20:27)
[2023-07-26] MEDS: Mirtazapine 30 MG Tablet PO (20:27)
[2023-07-27] MEDS: Acetaminophen 500 MG Tablet 1000 MG PO ×3 (05:40→20:08)
[2023-07-27] MEDS: Levothyroxine 25 MCG TABLET PO (05:40)
--- NOTE | 2023-07-27 06:19 | PCA ---
alarm checked and on
[2023-07-27] MEDS: Furosemide 40 MG Tablet PO (08:11)
[2023-07-27] MEDS: Aspirin E.C. 81 MG Tablet PO (08:12)
[2023-07-27] MEDS: Pantoprazole Sodium 40 MG Tablet PO (08:12)
[2023-07-27] MEDS: Amiodarone 200 MG Tablet 100 MG PO (08:12)
[2023-07-27] MEDS: Mirabegron 50 MG TAB.ER.24H PO (08:12)
[2023-07-27] MEDS: Tamsulosin HCl 0.4 MG Capsule PO (08:12)
[2023-07-27] MEDS: DULoxetine Hcl 60 MG Capsule PO (08:12)
[2023-07-27] MEDS: Losartan Potassium 50 MG Tablet PO (08:13)
[2023-07-27] MEDS: Carvedilol 3.125 MG TABLET PO ×2 (08:13→17:19)
[2023-07-27] MEDS: Potassium Chloride Oral Tablet 20 MEQ PO ×2 (08:13→17:20)
[2023-07-27] MEDS: Enoxaparin 40 MG/0.4 ML Syringe SC (08:13)
[2023-07-27] MEDS: Miconazole Nitrate 43 GM Bottle 1 APPLIC TOPICAL ×2 (08:14→20:15)
[2023-07-27] MEDS: Finasteride 5 MG Tablet PO (08:15)
[2023-07-27] MEDS: Menthol/Lanolin/Calamine/Znox 113 GM Tube 1 APPLIC TOPICAL ×2 (08:17→20:15)
[2023-07-27 08:19] VITALS: BP 122/62; PULSE 61; RESP 18; O2SAT 93
[2023-07-27] MEDS: traMADol 50 MG Tablet 100 MG PO (10:47)
--- NOTE | 2023-07-27 13:43 | NURSING ---
Addendum entered by Geri Lorenzo 07/27/23 17:18: Pt returns to unit with . pleasant mood, no concerns\complaints at this time. Original Note: Patient BLANQUITA. left unit ~1315 with . plans to return this evening.
[2023-07-27 13:49] VITALS: PULSE 58; RESP 16; TEMP 36.3; O2SAT 93
[2023-07-27 17:17] VITALS: BP 118/51; PULSE 61; RESP 16
[2023-07-27] MEDS: Mirtazapine 30 MG Tablet PO (20:07)
[2023-07-27] MEDS: Atorvastatin Calcium 40 MG Tablet PO (20:08)
[2023-07-27] MEDS: oxyCODONE 5 MG Tablet 2.5 MG PO (20:13)
[2023-07-28] MEDS: Acetaminophen 500 MG Tablet 1000 MG PO ×3 (05:17→21:39)
[2023-07-28] MEDS: Levothyroxine 25 MCG TABLET PO (05:17)
--- NOTE | 2023-07-28 06:24 | PCA ---
alarm checked and on with Supa
[2023-07-28] MEDS: Carvedilol 3.125 MG TABLET PO ×2 (07:45→16:31)
[2023-07-28] MEDS: Potassium Chloride Oral Tablet 20 MEQ PO ×2 (07:45→16:31)
[2023-07-28] MEDS: Amiodarone 200 MG Tablet 100 MG PO (07:48)
[2023-07-28] MEDS: Losartan Potassium 50 MG Tablet PO (07:48)
[2023-07-28] MEDS: Furosemide 40 MG Tablet PO (07:49)
[2023-07-28] MEDS: Tamsulosin HCl 0.4 MG Capsule PO (07:49)
[2023-07-28] MEDS: Mirabegron 50 MG TAB.ER.24H PO (07:49)
[2023-07-28] MEDS: DULoxetine Hcl 60 MG Capsule PO (07:49)
[2023-07-28] MEDS: Aspirin E.C. 81 MG Tablet PO (07:49)
[2023-07-28] MEDS: Pantoprazole Sodium 40 MG Tablet PO (07:50)
[2023-07-28] MEDS: Miconazole Nitrate 43 GM Bottle 1 APPLIC TOPICAL ×2 (07:50→21:39)
[2023-07-28] MEDS: Finasteride 5 MG Tablet PO (07:50)
[2023-07-28] MEDS: Menthol/Lanolin/Calamine/Znox 113 GM Tube 1 APPLIC TOPICAL ×2 (07:51→21:39)
[2023-07-28] MEDS: Enoxaparin 40 MG/0.4 ML Syringe SC (07:52)
[2023-07-28 07:56] VITALS: BP 131/69; PULSE 55; RESP 16; O2SAT 92
--- NOTE | 2023-07-28 09:33 | PCM.DC.SUM ---
Providers Date of Admission: 07/10/23 Primary Care Physician: MARIELENA Edwards Reason For Visit: R HIP FRACTURE Diagnosis Discharge Diagnosis (1) Debility: Status: Acute Code(s): R53.81 - Other malaise (2) Closed right hip fracture: Status: Resolved Code(s): S72.001A - Fracture of unspecified part of neck of right femur, initial encounter for closed fracture (3) Primary pancreatic neuroendocrine tumor: Status: Acute Code(s): D3A.8 - Other benign neuroendocrine tumors (4) History of CVA (cerebrovascular accident): Status: Acute Code(s): Z86.73 - Personal history of transient ischemic attack (TIA), and cerebral infarction without residual deficits (5) Atrial fibrillation: Status: Acute Code(s): I48.91 - Unspecified atrial fibrillation Qualifiers: Atrial fibrillation type: paroxysmal Qualified Code(s): I48.0 - Paroxysmal atrial fibrillation (6) Coronary artery disease: Status: Chronic Code(s): I25.10 - Atherosclerotic heart disease of [place] coronary artery without angina pectoris (7) Status post right shoulder hemiarthroplasty: Status: Resolved Code(s): Z96.611 - Presence of right artificial shoulder joint (8) Hyperlipidemia: Status: Acute Code(s): E78.5 - Hyperlipidemia, unspecified Qualifiers: Hyperlipidemia type: unspecified Qualified Code(s): E78.5 - Hyperlipidemia, unspecified (9) Depression: Status: Acute Code(s): F32.A - Depression, unspecified (10) Edema: Status: Acute Code(s): R60.9 - Edema, unspecified (11) Hypothyroidism: Status: Chronic Code(s): E03.9 - Hypothyroidism, unspecified Qualifiers: Hypothyroidism type: acquired Qualified Code(s): E03.9 - Hypothyroidism, unspecified (12) Hypokalemia: Status: Resolved Code(s): E87.6 - Hypokalemia Plan 72 year old male with below past medical history hospitalized for right hip fracture, underwent right hip hemiarthroplasty 06/21/[address] Dorman, admitted to for 3 hours daily rehabilitation, strengthening, transferred to TCU with debility, here for rehabilitation, strengthening, prior to disposition determination. Debility - PT/OT. Cognition - ST. Pain - Tylenol 1000mg q8, q8 prn, Arthritis compound 2 clicks topical tid, Oxycodone 2.5mg q6 prn. Bowel - senna/colace 2 tablets bid prn. Adult immunization - Administer pneumonia vaccine, covid19 vaccine, flu vaccine as appropriate. DVT prophylaxis - Lovenox 40mg sc daily. Atrial Fibrillation - Coreg 3.125mg bid, Amiodarone 100mg daily. Coronary artery Disease - Coreg 3.125mg bid, Losartan 50mg daily, Aspirin 81mg daily, NTG 0.4mg q5m prn. Depression - Duloxetine 60mg daily, stable chronic technician terminal and repeater use, GDR not recommended. Edema - Furosemide 40mg daily. Hypothyroidism - Levothyroxine 25mcg/50mcg alternating, TSH. Skin irritation - Calmoseptine tpical bid. Overactive bladder - Myrbetriq 50mg daily. Appetite loss - Mirtazapine 7.5mg qhs. Tinea Corporis - Nystatin topical bid. GERD - Pantoprazole 40mg daily. Hypokalemia - KCL ER 20meq bid. BPH - Tamsulosin 0.4mg daily. Insomnia - Trazodone 100mg qhs. Medications at Discharge Home Medications omeprazole 20 mg tablet,delayed release 20 mg PO DAILY reflux 09/26/18 potassium chloride 10 mEq tablet,extended release 20 meq PO BID supplement 11/18/19 aspirin 81 mg tablet,delayed release 81 mg PO QDAY heart health 02/01/22 amiodarone 200 mg tablet 100 mg (1/2 x 200 mg) PO QDAY heart rate #90 tabs 08/08/22 duloxetine 60 mg capsule,delayed release 60 mg PO DAILY mental health 03/21/23 furosemide 40 mg tablet 40 mg PO DAILY diuretic 03/21/23 mirabegron 50 mg tablet,extended release 24 hr (Myrbetriq) 50 mg PO DAILY BLADDER 05/19/23 acetaminophen 500 mg capsule 1,000 mg PO Q8H PRN PRN Pain 1-10 05/22/23 losartan 50 mg tablet 50 mg PO DAILY BP #60 tabs 06/07/23 tamsulosin 0.4 mg capsule 0.4 mg PO DAILY retention 06/07/23 enoxaparin 40 mg/0.4 mL subcutaneous syringe (Lovenox) 40 mg (0.4 mL) subcut DAILY prophylactic #4 mL 06/22/23 oxycodone 5 mg tablet 2.5 mg (1/2 x 5 mg) PO Q6H PRN PRN Pain Score 6-10 #0 tabs 06/22/23 linaclotide 145 mcg capsule (Linzess) 145 mcg PO QAM bowel #30 caps 06/27/23 acetaminophen 500 mg tablet 1,000 mg (2 x 500 mg) PO Q8 pain #0 tabs 07/06/23 atorvastatin 40 mg tablet 40 mg PO QHS cholesterol #0 tabs 07/06/23 carvedilol 3.125 mg tablet 3.125 mg PO BIDCM BP #0 tabs 07/06/23 levothyroxine 25 mcg tablet 25 mcg PO MoTuWeThFr@0600 thyroid #0 tabs 07/06/23 levothyroxine 50 mcg tablet 50 mcg PO SuSa@0600 thyroid #0 tabs 07/06/23 metolazone 2.5 mg tablet 2.5 mg PO DAILY PRN FLUID RETENTION #0 tabs 07/06/23 mirtazapine 30 mg tablet 30 mg PO QHS sleep #0 tabs 07/06/23 nitroglycerin 0.4 mg sublingual tablet 0.4 mg sublingual Q5M PRN Cardiac/Chest Pain #0 tabs 07/06/23 pantoprazole 40 mg tablet,delayed release 40 mg PO DAILY acid reflux #0 tabs 07/06/23 sennosides 8.6 mg-docusate sodium 50 mg tablet (Stool Softener-Stimulant Laxative) 2 tab PO BID PRN Constipation #0 tabs 07/06/23 tramadol 50 mg tablet 100 mg (2 x 50 mg) PO Q6H PRN PRN Pain Score 1-10 #0 tabs 07/06/23 Arthritis Pain Compound 2 click topical TID arthritis 07/10/23 acetaminophen 500 mg tablet 1,000 mg (2 x 500 mg) PO Q8 #0 tabs 07/28/23 carvedilol 3.125 mg tablet 3.125 mg PO BIDCM 30 days #60 tabs 07/28/23 finasteride 5 mg tablet 5 mg PO DAILY 30 days #30 tabs 07/28/23 losartan 50 mg tablet 50 mg PO DAILY 30 days #30 tabs 07/28/23 oxycodone 5 mg tablet 2.5 mg (1/2 x 5 mg) PO Q6H PRN PRN Pain Score 6-10 7 days #14 tabs 07/28/23 pantoprazole 40 mg tablet,delayed release 40 mg PO DAILY 30 days #30 tabs 07/28/23 tamsulosin 0.4 mg capsule 0.4 mg PO DAILY 30 days #30 caps 07/28/23 tramadol 50 mg tablet 100 mg (2 x 50 mg) PO Q6H PRN PRN Pain Score 1-10 7 days #56 tabs 07/28/23 Hospital Course Operations None Procedures None Summary of Care Provided Minutes Spent on Discharge: 30 Hospital Course: 72 year old male with below past medical history hospitalized for right hip fracture, underwent right hip hemiarthroplasty 06/21/[address] Dorman, admitted to for 3 hours daily rehabilitation, strengthening, transferred to TCU with debility, here for rehabilitation, strengthening, prior to disposition determination. Discharge home with , Home Health Care PT/OT/ST/SN, Front wheeled walker. Front wheeled walker: Patient unsafe to use a cane and requires a walker for ambulation. Weight / BMI Weight Weight: 89.448 kg Body Mass Index (BMI) 29.1 ABG / Lab / Microbiology Data 07/25/23 05:20 07/25/23 05:20 Microbiology: Microbiology 07/26/23 06:00 Nasal Secretion SARS-CoV-2 Antigen (Rapid) - Final 07/23/23 05:55 Nasal Secretion SARS-CoV-2 Antigen (Rapid) - Final 07/20/23 06:08 Nasal Secretion SARS-CoV-2 Antigen (Rapid) - Final 07/17/23 06:06 Nasal Secretion SARS-CoV-2 Antigen (Rapid) - Final 07/14/23 06:15 Nasal Secretion SARS-CoV-2 Antigen (Rapid) - Final 07/11/23 05:10 Nasal Secretion SARS-CoV-2 Antigen (Rapid) - Final D/C Instructions Discharge Diet: No restrictions Discharge Activity: Return to Normal Activity, May Shower and Use Walker Weight Bearing Status: Weight bearing as tolerated Call your doctor if you observe: Fever of 101 or Higher, Inability to urinate, Inability to have a bowel movement, Shortness of breath, Dizziness, Fainting spells, Swelling in the ankles, Chest pain and Uncontrolled pain Additional Instructions: Discharge home with , Home Health Care PT/OT/ST/SN, Front wheeled walker. Please Follow Up With: Ramesh Dorman DO When: As scheduled. Meaningful Use Info Meaningful Use Diagnoses (Choose all that apply): None applicable Discharge Plan Admission Admit Date/Time: 07/10/23 13:35 Primary Reason for Your Visit: Debility. Attending Provider: Good Lizama Chi Primary Care Provider: Kaylin Hui Instructions Additional Instructions / Restrictions: Discharge home with , Home Health Care PT/OT/ST/SN, Front wheeled walker. Discharge Orders/Prescriptions Prescriptions: New acetaminophen 500 mg Tablet 1,000 mg PO Q8 Qty: 0 0RF losartan 50 mg Tablet 50 mg PO DAILY 30 Days Qty: 30 0RF tramadol 50 mg Tablet 100 mg PO Q6H PRN PRN (Reason: Pain Score 1-10) 7 Days Qty: 56 0RF carvedilol 3.125 mg Tablet 3.125 mg PO BIDCM 30 Days Qty: 60 0RF tamsulosin 0.4 mg Capsule 0.4 mg PO DAILY 30 Days Qty: 30 0RF pantoprazole 40 mg Tablet,Delayed Release (Dr/Ec) 40 mg PO DAILY 30 Days Qty: 30 0RF finasteride 5 mg Tablet 5 mg PO DAILY 30 Days Qty: 30 0RF oxycodone 5 mg Tablet 2.5 mg PO Q6H PRN PRN (Reason: Pain Score 6-10) 7 Days Qty: 14 0RF Continued aspirin 81 mg tablet,delayed release (DR/EC) 81 mg PO QDAY potassium chloride 10 mEq tablet extended release 20 meq PO BID duloxetine 60 mg capsule,delayed release(DR/EC) 60 mg PO DAILY furosemide 40 mg tablet 40 mg PO DAILY Myrbetriq 50 mg tablet extended release 24 hr 50 mg PO DAILY Patient Comments: TAKE 1 TABLET BY MOUTH ONCE DAILY atorvastatin 40 mg Tablet 40 mg PO QHS Qty: 0 0RF levothyroxine 25 mcg Tablet 25 mcg PO MoTuWeThFr@0600 Qty: 0 0RF levothyroxine 50 mcg Tablet 50 mcg PO SuSa@0600 Qty: 0 0RF mirtazapine 30 mg Tablet 30 mg PO QHS Qty: 0 0RF nitroglycerin 0.4 mg Tablet, Sublingual 0.4 mg sublingual Q5M PRN (Reason: Cardiac/Chest Pain) Qty: 0 0RF amiodarone 200 mg tablet 100 mg PO QDAY Qty: 90 3RF Linzess 145 mcg capsule 145 mcg PO QAM Qty: 30 0RF No Action omeprazole 20 mg tablet,delayed release (DR/EC) 20 mg PO DAILY tamsulosin 0.4 mg capsule 0.4 mg PO DAILY losartan 50 mg tablet 50 mg PO DAILY Qty: 60 0RF acetaminophen 500 mg capsule 1,000 mg PO Q8H PRN PRN (Reason: Pain 1-10) oxycodone 5 mg Tablet 2.5 mg PO Q6H PRN PRN (Reason: Pain Score 6-10) Qty: 0 0RF enoxaparin [Lovenox] 40 mg/0.4 mL syringe 40 mg subcut DAILY Qty: 4 0RF acetaminophen 500 mg Tablet 1,000 mg PO Q8 Qty: 0 0RF metolazone 2.5 mg Tablet 2.5 mg PO DAILY PRN (Reason: FLUID RETENTION) Qty: 0 0RF sennosides-docusate sodium [Stool Softener-Stimulant Laxat] 8.6-50 mg Tablet 2 tab PO BID PRN (Reason: Constipation) Qty: 0 0RF carvedilol 3.125 mg Tablet 3.125 mg PO BIDCM Qty: 0 0RF pantoprazole 40 mg Tablet,Delayed Release (Dr/Ec) 40 mg PO DAILY Qty: 0 0RF tramadol 50 mg Tablet 100 mg PO Q6H PRN PRN (Reason: Pain Score 1-10) Qty: 0 0RF Arthritis Pain Compound 2 click topical TID Referrals / Follow Up: Kaylin Hui PA [Primary Care Provider] - Disposition Disposition (needs filled in before D/C Order can be placed): Home Health Service
[2023-07-28] MEDS: traMADol 50 MG Tablet 100 MG PO (09:47)
--- NOTE | 2023-07-28 10:28 | CASEMGMT ---
Social Work Spoke with pt and about how BLANQUITA went yesterday. BLANQUITA went well and reported to PT on a couple things to work on. agreeable to set DC date and requested 07/30. IDT agreeable. Confirmed FWW and HHC at [place]. Inquired about preference to on HHC and offered list of providers with quality and resource data. denied stating she remembered using [facility] prior d/t to location. [facility] and will make referral to determine acceptance. appreciative and will transport pt home. SW sent referral to [facility] for FWW and [facility] for PT/OT/ST/SN via [facility]. Plan: DC home with 07/30, [facility] PT/OT/ST/SN, FWW Mis Edge, PULVERIZING AND SIFTING OPERATOR MICHEAL
--- NOTE | 2023-07-28 12:14 | CASEMGMT ---
Social Work BIMS () and PHQ-2 () completed for MDS assessment. Mis Edge MSW TELEGRAPH INSPECTOR
--- NOTE | 2023-07-28 12:35 | MDS.RN ---
Pain interview for mds completed.
[2023-07-28] MEDS: Senna/Docusate Sodium 1 Tablet 2 TABLET PO (13:35)
--- NOTE | 2023-07-28 13:37 | NURSING ---
NO BM IN 3 DAYS. PRUNE JUICE GIVEN AT BREAKFAST WITH NO RESULTS. OK PER PT TO GIVE PRN SENNA NOW.
[2023-07-28 15:30] VITALS: BP 112/58; PULSE 54; RESP 18; TEMP 36.6; O2SAT 93
[2023-07-28] MEDS: Mirtazapine 30 MG Tablet PO (21:39)
[2023-07-28] MEDS: Atorvastatin Calcium 40 MG Tablet PO (21:39)
[2023-07-28] MEDS: oxyCODONE 5 MG Tablet 2.5 MG PO (21:46)
[2023-07-29] MEDS: Acetaminophen 500 MG Tablet 1000 MG PO ×3 (05:18→20:02)
[2023-07-29] MEDS: Levothyroxine 50 MCG Tablet PO (05:18)
[2023-07-29] MEDS: Potassium Chloride Oral Tablet 20 MEQ PO ×2 (08:03→17:43)
[2023-07-29] MEDS: Carvedilol 3.125 MG TABLET PO ×2 (08:03→17:43)
[2023-07-29] MEDS: Amiodarone 200 MG Tablet 100 MG PO (08:04)
[2023-07-29] MEDS: Menthol/Lanolin/Calamine/Znox 113 GM Tube 1 APPLIC TOPICAL ×2 (08:04→20:05)
[2023-07-29] MEDS: Furosemide 40 MG Tablet PO (08:05)
[2023-07-29] MEDS: DULoxetine Hcl 60 MG Capsule PO (08:05)
[2023-07-29] MEDS: Tamsulosin HCl 0.4 MG Capsule PO (08:05)
[2023-07-29] MEDS: Losartan Potassium 50 MG Tablet PO (08:05)
[2023-07-29] MEDS: Aspirin E.C. 81 MG Tablet PO (08:05)
[2023-07-29] MEDS: Miconazole Nitrate 43 GM Bottle 1 APPLIC TOPICAL ×2 (08:05→20:05)
[2023-07-29] MEDS: Mirabegron 50 MG TAB.ER.24H PO (08:06)
[2023-07-29] MEDS: Finasteride 5 MG Tablet PO (08:06)
[2023-07-29] MEDS: Enoxaparin 40 MG/0.4 ML Syringe SC (08:06)
[2023-07-29] MEDS: Pantoprazole Sodium 40 MG Tablet PO (08:07)
[2023-07-29] MEDS: Senna/Docusate Sodium 1 Tablet 2 TABLET PO (10:52)
[2023-07-29 14:57] VITALS: BP 115/64; PULSE 56; RESP 16; TEMP 36.6; O2SAT 93
[2023-07-29] MEDS: Magnesium Citrate 300 ML PO (17:42)
[2023-07-29] MEDS: oxyCODONE 5 MG Tablet 2.5 MG PO (20:01)
[2023-07-29] MEDS: Mirtazapine 30 MG Tablet PO (20:03)
[2023-07-29] MEDS: Atorvastatin Calcium 40 MG Tablet PO (20:04)
[2023-07-29 20:15] VITALS: O2SAT 95
[2023-07-30] MEDS: Acetaminophen 500 MG Tablet 1000 MG PO (06:09)
[2023-07-30] MEDS: Levothyroxine 50 MCG Tablet PO (06:10)
[2023-07-30 06:41] VITALS: O2SAT 98
[2023-07-30] MEDS: Potassium Chloride Oral Tablet 20 MEQ PO (08:19)
[2023-07-30] MEDS: Carvedilol 3.125 MG TABLET PO (08:19)
[2023-07-30] MEDS: Losartan Potassium 50 MG Tablet PO (08:20)
[2023-07-30] MEDS: Aspirin E.C. 81 MG Tablet PO (08:20)
[2023-07-30] MEDS: Tamsulosin HCl 0.4 MG Capsule PO (08:20)
[2023-07-30] MEDS: Furosemide 40 MG Tablet PO (08:20)
[2023-07-30] MEDS: Amiodarone 200 MG Tablet 100 MG PO (08:20)
[2023-07-30] MEDS: DULoxetine Hcl 60 MG Capsule PO (08:20)
[2023-07-30] MEDS: Enoxaparin 40 MG/0.4 ML Syringe SC (08:21)
[2023-07-30] MEDS: Pantoprazole Sodium 40 MG Tablet PO (08:21)
[2023-07-30] MEDS: Finasteride 5 MG Tablet PO (08:21)
[2023-07-30] MEDS: Mirabegron 50 MG TAB.ER.24H PO (08:21)
[2023-07-30] MEDS: Miconazole Nitrate 43 GM Bottle 1 APPLIC TOPICAL (08:22)
[2023-07-30] MEDS: Menthol/Lanolin/Calamine/Znox 113 GM Tube 1 APPLIC TOPICAL (08:23)
[2023-07-30 09:53] VITALS: BP 124/62; PULSE 53; RESP 16; TEMP 36.4; O2SAT 94
== END 2023-07-30 10:25 | disposition home health service (06) | DRG 561 ==
PROVIDERS: Admitting Provider Family Medicine Geriatric Medicine; PCP Physician Assistant; Visit Provider Family Medicine Geriatric Medicine
DX: S72.001D Fracture of unspecified part of neck of right femur, subsequent encounter for closed fracture with routine healing (principal); E03.9 Hypothyroidism, unspecified; B35.4 Tinea corporis; D3A.8 Other benign neuroendocrine tumors; I25.10 Atherosclerotic heart disease of native coronary artery without angina pectoris; I48.0 Paroxysmal atrial fibrillation; F32.A Depression, unspecified; K21.9 Gastro-esophageal reflux disease without esophagitis; E87.6 Hypokalemia; E78.5 Hyperlipidemia, unspecified; W19.XXXD Unspecified fall, subsequent encounter; Z87.891 Personal history of nicotine dependence; N40.0 Benign prostatic hyperplasia without lower urinary tract symptoms; Z96.611 Presence of right artificial shoulder joint; N32.81 Overactive bladder; Z79.899 Other long term (current) drug therapy; Z79.890 Hormone replacement therapy; Z79.82 Long term (current) use of aspirin
CPT/HCPCS: 36415; 73502; 80048; 85025; 87811; 92507; 92523; 96125; 97110; 97112; 97116; 97129; 97130; 97162; 97166; 97530; 97535; 97802

== ENCOUNTER → 2023-07-11 | Outpatient (CLI) | payer MEDICARE, BC, SELFPAY ==
--- NOTE | 2023-07-11 08:24 | VDLE_ITS ---
Reason For Study: LEG SWELLING RIGHT GSV - Harvested for prior CABG. CFV is compressible, spontaneous, competent and demonstrates pulsatile venous flow. FV is compressible, spontaneous, competent and demonstrates pulsatile venous flow. POP V is compressible, spontaneous, competent and demonstrates pulsatile venous flow. T/P Trunk is compressible. PTV is compressible. RT PerV is compressible. Procedure This is a venous duplex using B-mode, color flow and spectral Doppler. Exam performed portable in patient room. The exam was diagnostic. A preliminary report was called and/or faxed to TCU research test engine evaluator. VL/Venous Duplex US, Unilateral Interpretation Summary There is no evidence of right lower extremity deep vein thrombosis. Surgically harvested right great saphenous vein Pulsatile venous flow is noted throughout the right lower extremity that would suggest proximal venous hypertension or obstruction. Clinical correlation would be appropriate. Ordering Physician: Good Lizama Chi Referring Physician: Kay Ortiz Performed By: Gaurang Schultz RVT
--- NOTE | 2023-07-11 10:26 | MRI_ITS ---
STUDY: MRI LUMBAR SPINE WITHOUT CONTRAST REASON FOR EXAM: Male, 72 years old. LUMBAR RADICULOPATHY TECHNIQUE: Standardized fat and water weighted pulse sequences were obtained in the sagittal and axial planes. COMPARISON: April 27, 2023 FINDINGS: There are old mild compression fractures of T12 and L1 status post kyphoplasty T12-L1:.. Normal endplates. Normal disc height, hydration and morphology. Normal bilateral facet joints. Normal central canal and bilateral lateral recesses. Normal bilateral intervertebral neural foramina. Normal lumbar lordosis. There is no substantial scoliosis. Normal conus medullaris that terminates at T12-L1 L1-2: Normal endplates. Normal disc height, hydration and morphology. Normal bilateral facet joints. Normal central canal and bilateral lateral recesses. Normal bilateral intervertebral neural foramina. L2-3: Normal endplates. Normal disc height, hydration and minimal annular bulge Normal bilateral facet joints. Normal central canal and bilateral lateral recesses. Normal bilateral intervertebral neural foramina. L3-4: Normal endplates. Normal disc height, hydration and minimal annular bulge with bilateral foraminal disc protrusions. Mild facet arthropathy. Normal central canal and bilateral lateral recesses. Mild to moderate bilateral neural foraminal encroachment. L4-5: Grade 1 spondylolisthesis . Narrowed disc space and minimal bulging disc complex with small right foraminal disc protrusion. Bilateral facet arthropathy. Normal central canal and bilateral lateral recesses. Moderate left neural foraminal stenosis and more severe narrowing on the right exaggerated by shortened pedicles L5-S1: Normal endplates. Normal disc height, hydration and minimal annular bulge with small central disc protrusion. Facet arthropathy. Normal central canal and bilateral lateral recesses. Normal bilateral intervertebral neural foramina. Normal visualized sacral ala. Normal visualized paraspinous soft tissue structures. MRI/Spine Lumbar (Routine) IMPRESSION: Old compression fractures of T12 and L1 status post kyphoplasty. Spondylosis and multilevel spinal stenosis secondary to disc disease and bony hypertrophy most pronounced at L4-5 exaggerated by shortened pedicles Electronically Signed: Maikel Benjamin MD at 18:56 EDT ,
[2023-07-11 10:49] VITALS: BP 163/80; PULSE 63; RESP 16; O2SAT 95
[2023-07-11 11:05] VITALS: BP 163/80; PULSE 59; O2SAT 94
[2023-07-11 11:11] VITALS: BP 145/77; PULSE 72; RESP 20; O2SAT 94
== END | disposition home or self-care (01) ==
LOC: MRI 08:23
PROVIDERS: PCP Physician Assistant; Referring Provider Psychiatry & Neurology Neurology; Visit Provider Psychiatry & Neurology Neurology
DX: M54.16 Radiculopathy, lumbar region (principal); R22.41 Localized swelling, mass and lump, right lower limb
CPT/HCPCS: 72148; 93971

== ENCOUNTER → 2023-09-26 | Outpatient (CLI) | payer MEDICARE, BC, SELFPAY ==
[2023-09-26 13:40] LABS: PTHIN 124.3 pg/mL (18.4-80.1)
[2023-09-26 13:46] LABS: ALB/GLOB Ratio 0.9 RATIO (0.9-2.4); AST(SGOT) 19 U/L (15-37); Alanine Aminotransfer ALT/SGPT 35 U/L (16-61); Albumin, Serum 3.5 g/dL (3.2-5.0); Alkaline Phosphatase 101 U/L (45-117); Anion Gap 3 (5-15); BUN 18 mg/dL (7-18); BUN/Creat Ratio 16.2 RATIO (10-20); Calcium,Total 10.1 mg/dL (8.5-10.1); Chloride 107 mmol/L (98-107); Creatinine, Serum 1.11 mg/dL (0.70-1.30); EST Glomerular Filtration Rate 69 mL/min (>60); Est Glom Filt Rate - Afr Amer 84 mL/min (>60); Follicle Stimulating Hormone 11.6 mIU/mL; Globulin 3.9 g/dL (2.2-4.2); Glucose 85 mg/dL (74-106); Luteinizing Hormone 7.5 mIU/mL; Potassium 4.2 mmol/L (3.5-5.1); Protein, Total 7.4 g/dL (6.4-8.2); Sodium Level 141 mmol/L (136-145)
[2023-10-06 11:09] LABS: Testosterone, % Free 2.11 % (1.50-4.20); Testosterone, Free 6.08 ng/dL (5.00-21.00); Testosterone, Total 288 ng/dL (264-916)
== END | disposition home or self-care (01) ==
LOC: LAB 12:26
PROVIDERS: PCP Physician Assistant; Referring Provider Internal Medicine Endocrinology, Diabetes & Metabolism; Visit Provider Internal Medicine Endocrinology, Diabetes & Metabolism
DX: M81.0 Age-related osteoporosis without current pathological fracture (principal); R53.1 Weakness
CPT/HCPCS: 36415; 80053; 83001; 83002; 83970; 84146; 84402; 84403

== ENCOUNTER 2023-10-20 11:50 | Outpatient (CLI) | payer MEDICARE, BC, SELFPAY ==
--- OUTSIDE RECORDS SUMMARY | 2023-10-20 12:22 | XMS RPT_ITS | CCD ---
Author Name Unknown Address [id number] [place] [address] Organization [facility] Care Team Providers Care Rn Recovery Name Role Phone Unavailable Unavailable Unavailable Tavallaee, Greyson Unavailable Unavailable Tavallaee, Greyson Unavailable Unavailable Tavallaee, Greyson Unavailable Unavailable Tavallaee, Greyson Unavailable Unavailable DownsSophy L Unavailable Unavailable DownsSophy L Unavailable Unavailable No Doctor Assigned, Nodr Unavailable Unavail able Tavallaee, Greyson M Unavailable Unavailable Tavallaee, Greyson M Unavailable Unavailable No Doctor Assigned, Nodr Unavailable Unavail able Tavallaee, Greyson M Unavailable Unavailable No Doctor Assigned, Nodr Unavailable Unavail able Tavallaee, Greyson M Unavailable Unavailable Tavallaee, Greyson M Unavailable Unavailable No Doctor Assigned, Nodr Unavailable Unavail able Tavallaee, Greyson M Unavailable Unavailable Downs, Sophy L Unavailable Unavailable No Doctor Assigned, Nodr Unavailable Unavail able Tavallaee, Greyson M Unavailable Unavailable Tavallaee, Greyson M Unavailable Unavailable No Doctor Assigned, Nodr Unavailable Unavail able Unavailable Primary Care Provider Unavailabl e Trey Richey Unavailable Amanda Aguilar Unavailable Kaylin Hui Primary Care Provider Tavallaee, Greyson M Unavailable [phone] Unknown, Referring Provider Unavailable Unav ailable Trey Richey Unavailable Amanda Aguilar Unavailable Hui, Kaylin J Primary Care Provider Trey Richey Unavailable Amanda Aguilar Unavailable HuiKaylin lyn J Primary Care Provider Unknown, Pcp Unavailable Unavailable Audrey Hernandez Unavailable Unavailable UNKNOWN, PCP Primary Care Unavailable DO AUDREY HERNANDEZ Attending Unavailab Kaylin Quintero Primary Care Provider Kaylin Hui PA-C Primary Care Provider Trey Richey MD Unavailable RAMESH DE LA PAZ DO Admitting Unavailable RAMESH DE LA PAZ DO Primary Care Unavailable RAMESH DE LA PAZ DO Attending Unavailable HUI, KAYLIN J Consulting Unavailable PROVIDER, UNKNOWN Consulting Unavailable HUI, KAYLIN J Consulting Unavailable RAMESH DE LA PAZ DO Admitting Unavailable RAMESH DE LA PAZ DO Primary Care Unavailable RAMESH DE LA PAZ DO Attending Unavailable PROVIDER, UNKNOWN Consulting Unavailable MARCIO CARO DO Admitting Unavailable MARCIO CARO DO Primary Care Unavailable MARCIO CARO DO Attending Unavailable HUI, KAYLIN J Consulting Unavailable PROVIDER, UNKNOWN Consulting Unavailable HUI, KAYLIN J Consulting Unavailable HUI, KAYLIN J Attending Unavailable HUI, KAYLIN J Admitting Unavailable HUI, KAYLIN J Primary Care Unavailable PROVIDER, UNKNOWN Consulting Unavailable HUI, KAYLIN J Consulting Unavailable RIVERA SAMUEL C Admitting Unavailable RIVERA, SAMUEL C Primary Care Unavailable RIVERA, SAMUEL C Attending Unavailable HUI, KAYLIN J Referring Unavailable PROVIDER, UNKNOWN Consulting Unavailable CHADWICK DALTON DO Admitting Unavailable CHADWICK DALTON DO Primary Care Unavailable CHADWICK DALTON DO Attending Unavailable HUI, KAYLIN J Consulting Unavailable HUI, KAYLIN J Referring Unavailable PROVIDER, UNKNOWN Consulting Unavailable Hui MARIELENA-C, Kaylin J Unavailable Ez DAVISC, Kaylin J Unavailable [facility] Unavailable [facility] Unavailable [facility] Unavailable [phone] Dr. Justen Nicholson MD Unavailable Urologist Provider Unavailable Unavailable Neurology Provider Unavailable Unavailable Speech Therapy Provider Unavailable Unavaila ble Neuro-Surgery Provider Unavailable Unavailab le Physical Therapy, Reubennatanael Kramerereruiz Unavailable General Surgery Provider Unavailable Unavail able Orthopedic Provider Unavailable Unavailable Loren BARRIOS, Dr. Erick Loomis Unavailable [facility] Unavailable ENT Provider Unavailable Unavailable Edis BARRIOS, Dr. Santana Unavailable Jb BARRIOS, Dr. Steff Paul Unavailable Cruz BARRIOS, Dr. Fatima Unavailable Andreea ROMERO, Dr. Daphnie Licea Unavailable [facility] Unavailable Raymundo MERCHANT MARINER, Nikkie Unavailable Nestor PARRA, Breanna Jaime Unavailable Fransico BARRIOS, Ronald Loomis Unavailable [place] MERCHANT MARINER, Edna Fermin Unavailable Unavailable Gogoi (scribe), Hemanta Unavailable Unavaila ble Lg MERCHANT MARINER, Daine Unavailable Unavailable Deejay BARRIOS, Amanda Tavera Unavailable Jarrell MA, Alexa Unavailable Unavailable Miranda MERCHANT MARINER, Nida Unavailable Unavaila ble Fredrick MERCHANT MARINER, Lucia Unavailable Unavailable Stew GODOY, Gaby Tavera Unavailable Unavaila ble Abby MERCHANT MARINER, Yolis Unavailable Unavailable Mutersbaugh MERCHANT MARINER, Cindy K Unavailable Unavai zoltan Nayak (Scribe), Alo Unavailable Unavailab le Castillo MERCHANT MARINER, Montserrat M Unavailable Unavailab le [place] MERCHANT MARINER, Debby Unavailable Unavailab le Naga ZAMBRANO, Lucia Unavailable Unavailable Vess MERCHANT MARINER, Neilee L Unavailable Unavailable Wengerd MERCHANT MARINER, Krissy Unavailable Unavailabl e Jaky MERCHANT MARINER, Rox N Unavailable Unavaila ble Zaugg MERCHANT MARINER, Judy Unavailable Unavailable Unavailable Unavailable AMANDA ADAMS Referring Unavailable KAYLIN HUI Primary Care Unavailable AMANDA ADAMS Attending Unavailable AMANDA ADAMS Referring Unavailable KAYLIN HUI Primary Care Unavailable AMANDA ADAMS Referring Unavailable KAYLIN HUI Primary Care Unavailable AMANDA ADAMS Attending Unavailable KAYLIN HUI Primary Care Unavailable STEFF MUHAMMAD Attending Unavailable EZ, KAYLIN Primary Care Unavailable STEFF MUHAMMAD Attending Unavailable ROMANPENNYMARK Referring Unavailable HUI, KAYLIN Primary Care Unavailable STEFF MUHAMMAD Attending Unavailable STEFF MUHAMMAD Referring Unavailable [facility] Primary Care Unavailable STFEF MUHAMMAD Attending Unavailable [facility] Primary Care Unavailable Allergies Allergy Classification Reported Allergen(s) Allergy Type Date of Onset Reaction(s) Facility (20 sources) Lisinopril; Translations: [lisinopril] Drug Allergy 1 Cough [facility] (6 sources) Lisinopril Allergy to substance 9 Cough, Unknown [facility] NEGATED: Highlighted row has been ruled out! (1 source) 2 [facility] NEGATED: Highlighted row has been ruled out! (1 source) [facility].; [facility]. NEGATED: Highlighted row has been ruled out! (1 source) 2 [employer].; [employer]. NEGATED: Highlighted row has been ruled out! (1 source) [facility].; [facility]. NEGATED: Highlighted row has been ruled out! (1 source) 2 [employer].; [employer]. NEGATED: Highlighted row has been ruled out! (1 source) [employer].; [facility]. Medications Current Medications Medication Drug Class(es) Dates Sig (Normalized) Sig (Original) amiodarone hydrochloride 200 mg oral tablet (20 sources) Antiarrhythmic Start: 01-30-2023 amiodarone (Pacerone) 200 MG tablet Completed/Discontinued Medications Medication Drug Class(es) Dates Sig (Normalized) Sig (Original) acetaminophen 32 mg/ml oral solution (20 sources) Start: 11-17-2017 take 650 mg by mouth every six hours as needed acetaminophen (TYLENOL) 650 mg/20.3 mL soln Take 20.3 mL by mouth every 6 hours as needed. 0 11/17/2017 Active Problems Active Problems Problem Classification Problem Date Documented Date Episodic/Chronic Acute bronchitis (6 sources) Acute bronchitis; Translations: [Acute bronchitis, unspecified] 07-31-2019 Episodic Acute cerebrovascular disease (6 sources) Cerebrovascular accident; Translations: [Cerebral infarction, unspecified] Onset: 09-28-2023 Chronic Acute cerebrovascular disease (3 sources) Acute cerebrovascular disease 11-26-2022 Past or Other Problems Problem Classification Problem Date Documented Date Episodic/Chronic Diabetes mellitus without complication (20 sources) Metabolic stress hyperglycemia; Translations: [Hyperglycemia, unspecified] Onset: 10-21-2017 11-17-2017 Episodic Other and unspecified benign neoplasm (1 source) Other benign neuroendocrine tumors; Translations: [Primary neuroendocrine tumor of pancreas] Onset: 05-03-2017 Episodic Other lower respiratory disease (20 sources) Dyspnea on exertion; Translations: [Dyspnea, unspecified] Onset: 07-14-2020 07-14-2020 Episodic Other nervous system disorders (20 sources) Acute postoperative pain; Translations: [Other acute postprocedural pain] Onset: 05-12-2021 05-16-2021 Episodic Other upper respiratory disease (20 sources) Stenosis of trachea; Translations: [Other specified diseases of upper respiratory tract] Onset: 07-14-2020 05-16-2021 Episodic Respiratory failure; insufficiency; arrest (adult) (20 sources) Acute hypoxemic and hypercapnic respiratory failure; Translations: [Acute respiratory failure with hypoxia] Onset: 10-07-2017 11-17-2017 Episodic Results Test Name Value Interpretation Reference Range Facil ity Vital Signs Date Time Vital Sign Value Performing Clinician Josh lity 09-28-2023 13:40-0500 Body mass index (BMI) [Ratio] 29.65 kg/m2 Steff Muhammad MD Work Phone: [facility] 09-28-2023 13:40-0500 Body weight 88.45 kg Steff Muhammad MD Work Phone: [facility] 09-28-2023 13:40-0500 Diastolic blood pressure 68 mm[Hg] Steff Muhammad MD Work Phone: [facility] 09-28-2023 13:40-0500 Heart rate 66 /min Steff Muhammad MD Work Phone: [facility] 09-28-2023 13:40-0500 Systolic blood pressure 112 mm[Hg] Steff Muhammad MD Work Phone: [facility] 09-12-2023 10:32-0500 Body height 177.8 cm Alexa Vieyra MA [facility], [facility].; [place] [employer] [facility]. 09-12-2023 10:32-0500 Body mass index (BMI) [Ratio] 27.9 kg/m2 Alexa Vieyra MA [facility] [place] [employer] [facility] 09-12-2023 10:32-0500 Body surface area Derived from formula 2.06 m2 Alexa Vieyra MA [facility], [facility].; [employer] [facility], [facility]. 09-12-2023 10:32-0500 Body weight 88.2 kg Alexa Vieyra MA [facility], [facility].; [place] [employer] [facility], [facility]. 09-12-2023 10:32-0500 Diastolic blood pressure 84 mm[Hg] Alexa Vieyra MA [facility], [facility].; [employer] [facility], [employer]. 09-12-2023 10:32-0500 Heart rate 66 /min Alexa Vieyra MA [facility], [facility].; [place] [employer] [facility]. 09-12-2023 10:32-0500 Inhaled oxygen concentration 20 % Alexa [facility]ra [facility].; [place] [employer] [facility]. 09-12-2023 10:32-0500 SaO2% (BldA) [Mass fraction] 92 % Alexa Vieyra MA [facility], [facility].; [email or web address], [facility]. 09-12-2023 10:32-0500 Systolic blood pressure 172 mm[Hg] Alexa Vieyra MA [facility], [facility].; [email or web address], [facility]. 08-03-2023 13:51-0500 Body height 177.8 cm [facility].; [employer]. 08-03-2023 13:51-0500 Body mass index (BMI) [Ratio] 28.44 kg/m2 [facility] [employer] [facility], [facility].; [email or web address], [employer]. 08-03-2023 13:51-0500 Body surface area Derived from formula 2.08 m2 [facility] [employer]. 08-03-2023 13:51-0500 Body weight 89.9 kg [facility]. 08-03-2023 13:51-0500 Diastolic blood pressure 75 mm[Hg] [facility].; [facility]. 08-03-2023 13:51-0500 Heart rate 53 /min [facility].; [facility]. 08-03-2023 13:51-0500 Inhaled oxygen concentration 20 % [facility].; [facility]. 08-03-2023 13:51-0500 SaO2% (BldA) [Mass fraction] 95 % [facility].; [facility]. 08-03-2023 13:51-0500 Systolic blood pressure 120 mm[Hg] [facility].; [facility]. 04-21-2023 08:36-0400 Body height 172.7 cm Amanda Adams MD Work Phone: [facility] 04-21-2023 08:36-0400 Body temperature 97.9 [degF] Amanda Adams MD Work Phone: [facility] 04-21-2023 08:36-0400 Body weight 95.25 kg Amanda Adams MD Work Phone: [facility] 04-21-2023 08:36-0400 Diastolic blood pressure 76 mm[Hg] Amanda Adams MD Work Phone: [facility] 04-21-2023 08:36-0400 Heart rate 8 /min Amanda Adams MD Work Phone: [facility] 04-21-2023 08:36-0400 Systolic blood pressure 157 mm[Hg] Amanda Adams MD Work Phone: [facility] 04-12-2023 12:52-0400 Body height 172.7 cm Steff Muhammad MD Work Phone: [facility] 04-12-2023 12:52-0400 Body mass index (BMI) [Ratio] 31.32 kg/m2 Steff Muhammad MD Work Phone: [place] [employer] 04-12-2023 12:52-0400 Body weight 93.44 kg Steff Muhammad MD Work Phone: [facility] 04-12-2023 12:52-0400 Diastolic blood pressure 80 mm[Hg] Steff Muhammad MD Work Phone: [facility] 04-12-2023 12:52-0400 Heart rate 70 /min Steff Muhammad MD Work Phone: [facility] 04-12-2023 12:52-0400 Systolic blood pressure 141 mm[Hg] Steff Muhammad MD Work Phone: [facility] [employer] 03-03-2023 10:16-0400 Body height 177.8 cm Montserrat Chong LPN [facility], [facility].; [place] [employer] [facility]. 03-03-2023 10:16-0400 Body mass index (BMI) [Ratio] 30.28 kg/m2 Montserrat Chong MERCHANT MARINER [place] [employer] [facility] [place] [employer] [facility], [facility]. 03-03-2023 10:16-0400 Body surface area Derived from formula 2.14 m2 Montserrat Chong LPN [place] [employer] [facility] [email or web address], [facility]. 03-03-2023 10:16-0400 Body weight 95.71 kg Montserrat Chong LPN [place] [employer] [facility].; [employer] [facility]. 03-03-2023 10:16-0400 Diastolic blood pressure 72 mm[Hg] Montserrat Chong LPN [place] [employer] [facility].; [employer] [facility]. 03-03-2023 10:16-0400 Heart rate 69 /min Montserrat Chong LPN [place] [employer] [facility], [facility].; [employer] [facility], [facility]. 03-03-2023 10:16-0400 Systolic blood pressure 139 mm[Hg] Montserrat Chong LPN [place] [employer] [facility].; [employer]. 01-05-2023 13:24-0400 Body height 177.8 cm Kaylin Jaime Hui PA-C Work Phone: [employer] [employer] 01-05-2023 13:24-0400 Body mass index (BMI) [Ratio] 30.42 kg/m2 Kaylin Jaime Hui PA-C Work Phone: [employer] [employer] 01-05-2023 13:24-0400 Body surface area Derived from formula 2.14 m2 Kaylin Jaime Hui PA-C Work Phone: [employer]; [place] 01-05-2023 13:24-0400 Body weight 96.16 kg Kaylin Jaime Hui PA-C Work Phone: [employer] [place] 01-05-2023 13:24-0400 Diastolic blood pressure 74 mm[Hg] Kaylin Jaime Hui PA-C Work Phone: [employer] [employer] 01-05-2023 13:24-0400 Heart rate 73 /min Kaylin Jaime Hui PA-C Work Phone: [employer] [place] 01-05-2023 13:24-0400 Systolic blood pressure 136 mm[Hg] Kaylin Yeni Hui PA-C Work Phone: [place]; [employer]. 11-27-2022 02:03-0500 Diastolic blood pressure 70 mm[Hg] Pcp Unknown [facility] 11-27-2022 02:03-0500 Heart rate 71 /min Pcp Unknown [facility] 11-27-2022 02:03-0500 Respiratory rate 16 /min Pcp Unknown [facility] 11-27-2022 02:03-0500 SaO2% (BldA) [Mass fraction] 95 % Pcp Unknown [facility] 03-05-2023 02:03-0500 Systolic blood pressure 138 mm[Hg] Pcp Unknown [facility] 09-27-2022 13:53-0500 Body height 175.3 cm Sonu Riojas MD Work Phone: [facility] 09-27-2022 13:53-0500 Body temperature 97.7 [degF] Sonu Riojas MD Work Phone: [facility] 09-27-2022 13:53-0500 Body weight 98.1 kg Pulm 11 Other Phone: [facility] 09-27-2022 13:53-0500 Diastolic blood pressure 67 mm[Hg] Sonu Riojas MD Work Phone: [facility] 09-27-2022 13:53-0500 Heart rate 65 /min Sonu Riojas MD Work Phone: [facility] 09-27-2022 13:53-0500 Respiratory rate 18 /min Sonu Riojas MD Work Phone: [facility] 09-27-2022 13:53-0500 SaO2% (BldA) [Mass fraction] 94 % Sonu Riojas MD Work Phone: [facility] 09-27-2022 13:53-0500 Systolic blood pressure 141 mm[Hg] Sonu Riojas MD Work Phone: [facility] 09-27-2022 11:00-0500 Body height 173 cm Pulm 11 Other Phone: [facility] 07-18-2022 14:04-0400 Body height 177.8 cm Kaylin PEGUERO-Radha Work Phone: [facility]; [employer] [facility] 07-18-2022 14:04-0400 Body mass index (BMI) [Ratio] 30.56 kg/m2 Kaylin PEGUERO-C Work Phone: [employer].; [facility] 07-18-2022 14:04-0400 Body surface area Derived from formula 2.14 m2 Kaylin Arellanoer PA-C Work Phone: [place] [employer]. 07-18-2022 14:04-0400 Body temperature 99 [degF] Kaylin Arellanoer PA-C Work Phone: [employer].; [employer]. 07-18-2022 14:04-0400 Body weight 96.62 kg Kaylin Arellanoer PA-C Work Phone: [employer].; [employer]. 07-18-2022 14:04-0400 Diastolic blood pressure 86 mm[Hg] Kaylin Arellanoer PA-C Work Phone: [employer].; [employer]. 07-18-2022 14:04-0400 Heart rate 61 /min Kaylin Arellanoer PA-C Work Phone: [place] [employer].; [employer]. 07-18-2022 14:04-0400 Systolic blood pressure 147 mm[Hg] Kaylin Arellanoer PA-C Work Phone: [employer].; [place] [employer] [facility]. 07-07-2022 09:38-0400 Body height 177.8 cm Yolis Mora LPN [facility].; [facility]. 07-07-2022 09:38-0400 Body mass index (BMI) [Ratio] 30.85 kg/m2 Yolis Mora LPN [facility].; [facility]. 07-07-2022 09:38-0400 Body surface area Derived from formula 2.15 m2 Yolis Mora LPN [facility].; [facility]. 07-07-2022 09:38-0400 Body temperature 97.7 [degF] Yolis Mora LPN [facility], [facility].; [facility] [employer] [facility]. 07-07-2022 09:38-0400 Body weight 97.52 kg Yolis Mora LPN [facility].; [facility]. 07-07-2022 09:38-0400 Diastolic blood pressure 86 mm[Hg] Yolis Mora LPN [facility].; [facility]. 07-07-2022 09:38-0400 Heart rate 61 /min Yolis Mora LPN [facility].; [facility]. 07-07-2022 09:38-0400 Systolic blood pressure 156 mm[Hg] Yolis Mora LPN [facility].; [facility], [facility]. 06-30-2022 13:13-0400 Body height 177.8 cm Kaylin Yeni Hui PA-C Work Phone: [facility].; [place] [employer] [facility]. 06-30-2022 13:13-0400 Body mass index (BMI) [Ratio] 30.42 kg/m2 Kaylin Yeni Hui PA-C Work Phone: [facility].; [employer] [facility]. 06-30-2022 13:13-0400 Body surface area Derived from formula 2.14 m2 Kaylin Yeni Hui PA-C Work Phone: [place] [employer] [facility].; [place] [employer] [facility]. 06-30-2022 13:13-0400 Body weight 96.16 kg Kaylin Yeni Hui PA-C Work Phone: [employer] [facility].; [employer] [facility]. 06-30-2022 13:13-0400 Diastolic blood pressure 73 mm[Hg] Kaylin Yeni Hui PA-C Work Phone: [employer] [facility].; [employer] [facility]. 06-30-2022 13:13-0400 Heart rate 64 /min Kaylin J Hui PA-C Work Phone: [employer].; [employer]. 06-30-2022 13:13-0400 Systolic blood pressure 131 mm[Hg] Kaylin J Hui PA-C Work Phone: [employer].; [employer] [facility]. 03-15-2022 12:52-0400 Body temperature 97.81 [degF] Sonu Riojas MD Work Phone: [facility] 03-15-2022 12:52-0400 Diastolic blood pressure 69 mm[Hg] Sonu Riojas MD Work Phone: [facility] 03-15-2022 12:52-0400 Heart rate 60 /min Sonu Riojas MD Work Phone: [facility] 03-15-2022 12:52-0400 SaO2% (BldA) [Mass fraction] 93 % Sonu Riojas MD Work Phone: [facility] 03-15-2022 12:52-0400 Systolic blood pressure 135 mm[Hg] Sonu Riojas MD Work Phone: [facility] 12-27-2021 13:12-0400 Body height 177.8 cm Kaylin Arellanoer PA-C Work Phone: [employer].; [employer]. 12-27-2021 13:12-0400 Body mass index (BMI) [Ratio] 30.28 kg/m2 Kaylin Yeni Arellanoer PA-C Work Phone: [employer].; [employer]. 12-27-2021 13:12-0400 Body surface area Derived from formula 2.14 m2 Kaylin Arellanoer PA-C Work Phone: [employer].; [employer] [facility]. 12-27-2021 13:12-0400 Body weight 95.71 kg Kaylin Arellanoer PA-C Work Phone: [employer].; [employer]. 12-27-2021 13:12-0400 Diastolic blood pressure 74 mm[Hg] Kaylin Arellanoer PA-C Work Phone: [employer].; [employer]. 12-27-2021 13:12-0400 Heart rate 61 /min Kaylin Jaime Hui PA-C Work Phone: [employer].; [employer]. 12-27-2021 13:12-0400 Systolic blood pressure 131 mm[Hg] Kaylin Jaime Hui PA-C Work Phone: [employer].; [employer] [facility]. 11-17-2021 08:56-0500 Body height 177.8 cm Kaylin Jaime Hui PA-C Work Phone: [employer].; [employer]. 11-17-2021 08:56-0500 Body mass index (BMI) [Ratio] 30.28 kg/m2 Kaylin Jaime Hui PA-C Work Phone: [employer].; [employer]. 11-17-2021 08:56-0500 Body surface area Derived from formula 2.14 m2 Kaylin Yeni Hui PA-C Work Phone: [employer].; [employer] 11-17-2021 08:56-0500 Body weight 95.71 kg Kaylin Jaime Hui PA-C Work Phone: [employer].; [employer]. 11-17-2021 08:56-0500 Diastolic blood pressure 64 mm[Hg] Kaylin Jaime Hui PA-C Work Phone: [employer].; [employer]. 11-17-2021 08:56-0500 Heart rate 57 /min Kaylin Jaime Hui PA-C Work Phone: [employer].; [employer] 11-17-2021 08:56-0500 Systolic blood pressure 124 mm[Hg] Kaylin Yeni Hui PA-C Work Phone: [employer].; [employer]. 10-22-2021 13:13-0500 Body height 177.8 cm Kaylin Arellanoer PA-C Work Phone: [employer].; [employer]. 10-22-2021 13:13-0500 Body mass index (BMI) [Ratio] 30.99 kg/m2 Kaylin Jaime Hui PA-C Work Phone: [employer].; [employer]. 10-22-2021 13:13-0500 Body surface area Derived from formula 2.16 m2 Kaylin Jaime Hui PA-C Work Phone: [employer].; [employer]. 10-22-2021 13:13-0500 Body weight 97.98 kg Kaylin Jaime Hui PA-C Work Phone: [employer].; [employer]. 10-22-2021 13:13-0500 Diastolic blood pressure 78 mm[Hg] Kaylin Arellanoer PA-C Work Phone: [employer].; [employer]. 10-22-2021 13:13-0500 Heart rate 70 /min Kaylin Jaime Hui PA-C Work Phone: [employer]; [employer]. 10-22-2021 13:13-0500 Systolic blood pressure 134 mm[Hg] Kaylin Jaime Hui PA-C Work Phone: [employer]. 08-03-2021 14:39-0500 Body height 177.8 cm Lucia Alcala LPN [employer] [facility].; [employer]. 08-03-2021 14:39-0500 Body mass index (BMI) [Ratio] 30.71 kg/m2 Lucia Alcala LPN [employer].; [employer]. 08-03-2021 14:39-0500 Body surface area Derived from formula 2.15 m2 Lucia Alcala LPN [employer]. 08-03-2021 14:39-0500 Body weight 97.07 kg Lucia Alcala LPN [place] [employer] [facility], [facility].; [employer]. 08-03-2021 14:39-0500 Diastolic blood pressure 77 mm[Hg] Lucia Alcala LPN [place] [employer] [facility], [facility].; [email or web address] 08-03-2021 14:39-0500 Heart rate 59 /min Lucia Alcala [employer] [place] [employer] [facility], Inc.; [employer] [facility]. 08-03-2021 14:39-0500 Systolic blood pressure 139 mm[Hg] Lucia Alcala LPN [place] [employer] [facility], [facility].; [employer], [facility]. 06-10-2021 13:16-0400 Body height 177.8 cm Montserrat Chong [facility] [employer] [facility], Inc.; [employer], [employer] 06-10-2021 13:16-0400 Body mass index (BMI) [Ratio] 29.84 kg/m2 Montserrat Chong [facility] [employer] [facility], Inc.; [email or web address], [employer] 06-10-2021 13:16-0400 Body surface area Derived from formula 2.12 m2 Montserrat Chong [employer] [facility], [facility].; [employer], [facility]. 06-10-2021 13:16-0400 Body weight 94.35 kg Montserrat Chong [employer] [place] [employer] [facility], [facility].; [employer], [facility]. 06-10-2021 13:16-0400 Diastolic blood pressure 74 mm[Hg] Montserrat Chong LPN [place] [employer] [facility], Inc.; [email or web address], [facility]. 06-10-2021 13:16-0400 Heart rate 51 /min Montserrat Chong [email or web address], [facility].; [employer]. 06-10-2021 13:16-0400 Systolic blood pressure 134 mm[Hg] Montserrat Chong LPN [place] [employer] [facility].; [employer], [employer]. 05-18-2021 16:34-0400 Body height 177.8 cm Breanna Baez PA-C Work Phone: [place] [employer] [facility].; [employer]. 05-18-2021 16:34-0400 Body mass index (BMI) [Ratio] 29.7 kg/m2 Breanna J Baez PA-C Work Phone: [employer].; [employer]. 05-18-2021 16:34-0400 Body surface area Derived from formula 2.12 m2 Breanna J Baez PA-C Work Phone: [employer].; [employer]. 05-18-2021 16:34-0400 Body temperature 97.7 [degF] Breanna J Baez PA-C Work Phone: [employer].; [employer]. 05-18-2021 16:34-0400 Body weight 93.9 kg Breanna J Baez PA-C Work Phone: [employer].; [employer]. 05-18-2021 16:34-0400 Diastolic blood pressure 82 mm[Hg] Breanna J Baez PA-C Work Phone: [employer].; [employer]. 05-18-2021 16:34-0400 Heart rate 57 /min Breanna J Baez PA-C Work Phone: [employer].; [employer]. 05-18-2021 16:34-0400 Systolic blood pressure 144 mm[Hg] Breanna J Baez PA-C Work Phone: [employer].; [employer]. 02-04-2021 11:20-0400 Body height 177.8 cm Lucia Alcala LPN [employer].; [employer]. 02-04-2021 11:20-0400 Body mass index (BMI) [Ratio] 29.99 kg/m2 Lucia Alcala LPN [employer].; [employer]. 02-04-2021 11:20-0400 Body surface area Derived from formula 2.13 m2 Lucia Alcala LPN [facility].; [facility]. 02-04-2021 11:20-0400 Body weight 94.8 kg Lucia Alcala LPN [facility].; [facility]. 02-04-2021 11:20-0400 Diastolic blood pressure 67 mm[Hg] Lucia Alcala LPN [facility].; [facility]. 02-04-2021 11:20-0400 Heart rate 60 /min Lucia Alcala LPN [facility].; [facility]. 02-04-2021 11:20-0400 Systolic blood pressure 122 mm[Hg] Lucia Alcala LPN [facility].; [place] [employer] [facility] [employer] [facility]. 12-07-2020 11:25-0400 Body height 177.8 cm Gaby Mathias RN [facility], [facility].; [place] [employer] [facility] [employer] [facility]. 12-07-2020 11:25-0400 Body mass index (BMI) [Ratio] 30.71 kg/m2 Gaby Mathias RN [facility].; [place] [employer] [facility] [employer] [facility]. 12-07-2020 11:25-0400 Body surface area Derived from formula 2.15 m2 Gaby Mtahias RN [place] [employer] [facility].; [place] [employer] [facility]. 12-07-2020 11:25-0400 Body temperature 99.1 [degF] Gaby Mathias RN [place] [employer] [facility].; [employer] [facility]. 12-07-2020 11:25-0400 Body weight 97.07 kg Gaby Mathias RN [place] [employer] [facility].; [employer] [facility]. 12-07-2020 11:25-0400 Diastolic blood pressure 72 mm[Hg] Gaby Mathias RN [place] [employer] [facility] South[facility].; [place] [employer], [facility]. 12-07-2020 11:25-0400 Systolic blood pressure 132 mm[Hg] Gaby Mathias RN [place] [employer] [facility], [facility].; [employer] [facility]. 11-26-2020 11:32-0500 Body height 177.8 cm Lucia Alcala LPN [facility], [facility].; [place] [employer] [facility], [facility]. 11-26-2020 11:32-0500 Body mass index (BMI) [Ratio] 30.28 kg/m2 Lucia Alcala LPN [facility], [facility].; [place] [employer] [facility], Inc. 11-26-2020 11:32-0500 Body surface area Derived from formula 2.14 m2 Lucia Alcala LPN [facility], [facility].; [place] [employer] [facility], [facility]. 11-26-2020 11:32-0500 Body weight 95.71 kg Lucia Alcala LPN [facility], [facility].; [place] [employer] [facility], [facility]. 11-26-2020 11:32-0500 Diastolic blood pressure 80 mm[Hg] Lucia Alcala LPN [facility], [facility].; [place] [employer], [facility]. 11-26-2020 11:32-0500 Heart rate 56 /min Lucia Alcala LPN [facility], [facility].; [place] [employer], [facility]. 11-26-2020 11:32-0500 Systolic blood pressure 130 mm[Hg] Lucia Alcala LPN [facility], [facility].; [employer], [facility]. 08-04-2020 13:32-0500 Body height 177.8 cm Lucia Alcala LPN [facility], [facility].; [place] [employer] 08-04-2020 13:32-0500 Body mass index (BMI) [Ratio] 29.13 kg/m2 Lucia Alcala LPN [facility], [facility].; [employer] 08-04-2020 13:32-0500 Body surface area Derived from formula 2.1 m2 Lucia Alcala LPN [facility], [facility].; [employer], [facility]. 08-04-2020 13:32-0500 Body temperature 98.9 [degF] Lucia Alcala LPN [facility], [facility].; [place] [employer] 08-04-2020 13:32-0500 Body weight 92.08 kg Lucia Alcala LPN [facility], Inc.; [place] [employer], [facility]. 08-04-2020 13:32-0500 Diastolic blood pressure 63 mm[Hg] Lucia Alcala LPN [facility], Inc.; [place] [employer] [facility], [facility]. 08-04-2020 13:32-0500 Heart rate 61 /min Lucia Alcala [employer] [facility], Inc.; [place] [employer] [facility], Inc. 08-04-2020 13:32-0500 Inhaled oxygen concentration 20 % Lucia Alcala [employer] [facility], Inc.; [place] [employer] [facility], Inc. 08-04-2020 13:32-0500 SaO2% (BldA) [Mass fraction] 94 % Lucia Alcala [facility], Inc.; [email or web address] 08-04-2020 13:32-0500 Systolic blood pressure 124 mm[Hg] Lucia Alcala LPN [facility], Inc.; [email or web address] 05-13-2020 10:09-0400 Body height 177.8 cm Gris Reyes [employer] [facility], Inc.; [email or web address] 05-13-2020 10:09-0400 Body temperature 98.6 [degF] Gris Reyes [employer] [facility], Inc.; [email or web address], [employer]. 05-13-2020 10:09-0400 Diastolic blood pressure 74 mm[Hg] Debby [place] [employer] [place] [employer] [facility], Inc.; [email or web address] 05-13-2020 10:09-0400 Heart rate 72 /min Debby [place] [employer] [facility], Inc.; [place] [employer] [facility], [facility]. 05-13-2020 10:09-0400 Inhaled oxygen concentration 20 % Debby [place] [employer] [facility], Inc.; [email or web address], [employer]. 05-13-2020 10:09-0400 SaO2% (BldA) [Mass fraction] 93 % Debby Amy [employer] [place] [employer] [facility], Inc.; [email or web address], [employer]. 05-13-2020 10:09-0400 Systolic blood pressure 127 mm[Hg] Gris Avitiauckey ROJAS [place] [employer] [facility], Inc.; [email or web address] 03-12-2020 14:42-0400 Body height 177.8 cm Gaby Mathias RN [place] [employer] [facility] South[facility].; [employer] [facility]. 03-12-2020 14:42-0400 Body mass index (BMI) [Ratio] 29.99 kg/m2 Gaby Mathias RN [facility].; [employer] 03-12-2020 14:42-0400 Body surface area Derived from formula 2.13 m2 Gaby Mathias RN [place] [employer] [facility].; [employer] [facility]. 03-12-2020 14:42-0400 Body weight 94.8 kg Gaby Mathias [facility].; [employer] [facility]. 03-12-2020 14:42-0400 Diastolic blood pressure 69 mm[Hg] Gaby Mathias RN [place] [employer] [facility].; [employer]. 03-12-2020 14:42-0400 Heart rate 52 /min Gaby Mathias RN [place] [employer] [facility].; [employer]. 03-12-2020 14:42-0400 Systolic blood pressure 123 mm[Hg] Gaby Mathias RN [place] [employer] [facility].; [employer]. 11-01-2019 13:01-0500 Body height 177.8 cm Montserrat Chong LPN [place] [employer] [facility].; [employer]. 11-01-2019 13:01-0500 Body mass index (BMI) [Ratio] 29.99 kg/m2 Montserrat Chong LPN [employer] [facility] Company Inc.; [employer]. 11-01-2019 13:01-0500 Body surface area Derived from formula 2.13 m2 Montserrat Chong LPN [employer] [facility].; [employer]. 11-01-2019 13:01-0500 Body weight 94.8 kg Montserrat Chong LPN [place] [employer] [facility].; [email or web address], [employer]. 11-01-2019 13:01-0500 Diastolic blood pressure 81 mm[Hg] Montserrat Chong LPN [employer] Inc.; [employer]. 11-01-2019 13:01-0500 Heart rate 56 /min Montserrat Chnog LPN [employer] [facility] Holding Company Inc.; [employer]. 11-01-2019 13:01-0500 Systolic blood pressure 131 mm[Hg] Montserrat Chong LPN [employer] Inc.; [employer] Inc. 09-26-2019 11:30-0500 Body height 177.8 cm Gaby Mathias RN [employer] [facility] Company Inc.; [employer] Inc. 09-26-2019 11:30-0500 Body mass index (BMI) [Ratio] 30.42 kg/m2 Gaby Mathias RN [employer] Inc.; [employer]. 09-26-2019 11:30-0500 Body surface area Derived from formula 2.14 m2 Gaby Mathias RN [employer].; [employer]. 09-26-2019 11:30-0500 Body temperature 99.4 [degF] Gaby Mathias RN [employer].; [employer]. 09-26-2019 11:30-0500 Body weight 96.16 kg Gaby Mathias RN [employer].; [employer]. 09-26-2019 11:30-0500 Diastolic blood pressure 59 mm[Hg] Gaby Mathias RN [employer].; [employer]. 09-26-2019 11:30-0500 Heart rate 62 /min Gaby Mathias RN [employer].; [employer]. 09-26-2019 11:30-0500 Systolic blood pressure 98 mm[Hg] Gaby Mathias RN [employer].; [employer]. 08-02-2019 14:25-0500 Body height 177.8 cm Montserrat Chong LPN [employer].; [employer] Inc[employer] 08-02-2019 14:25-0500 Body mass index (BMI) [Ratio] 30.13 kg/m2 Montserrat Chong LPN [employer] Inc.; [employer]. 08-02-2019 14:25-0500 Body surface area Derived from formula 2.13 m2 Montserrat Chong [employer], Inc.; [employer], [employer] 08-02-2019 14:25-0500 Body weight 95.26 kg Montserrat Chong [employer], Inc.; [employer], [employer] 08-02-2019 14:25-0500 Diastolic blood pressure 77 mm[Hg] Montserrat Starkach [employer], Inc.; [employer], Inc[employer] 08-02-2019 14:25-0500 Heart rate 61 /min Montserrat Chong [facility] [employer], Inc.; [employer], Inc[employer] 08-02-2019 14:25-0500 Systolic blood pressure 117 mm[Hg] Montserrat Chong [facility] [employer], Inc.; [employer], [employer] 07-31-2019 13:06-0500 Body height 177.8 cm [place] Rivasmoiz [employer], Inc.; [employer], [employer] 07-31-2019 13:06-0500 Body mass index (BMI) [Ratio] 30.13 kg/m2 Judy Zaugg [employer], Inc.; [employer], [employer] 07-31-2019 13:06-0500 Body surface area Derived from formula 2.13 m2 Judy Rivasugg [employer], Inc.; [employer], [employer] 07-31-2019 13:06-0500 Body weight 95.26 kg [place] Rivasmoiz [employer], Inc.; [employer], [employer] 07-31-2019 13:06-0500 Diastolic blood pressure 80 mm[Hg] Judy Zaugg [employer], Inc.; [employer], [employer] 07-31-2019 13:06-0500 Heart rate 63 /min Judy Zaugg [employer], Inc.; [employer], [employer] 07-31-2019 13:06-0500 Systolic blood pressure 137 mm[Hg] Judy Zaugg [employer], Inc.; [employer], [employer] 07-16-2019 16:08-0400 Body height 177.8 cm Lucia Alcala LPN [facility], Inc.; [employer], [employer]. 07-16-2019 16:08-0400 Body mass index (BMI) [Ratio] 31.42 kg/m2 Lucia Alcala LPN [facility], Inc.; [employer], [employer] 07-16-2019 16:08-0400 Body surface area Derived from formula 2.17 m2 Lucia Alcala LPN [place] [employer] [facility], Inc.; [employer], Inc[employer] 07-16-2019 16:08-0400 Body temperature 98 [degF] Lucia Alcala LPN [facility], Inc.; [employer], Inc[employer] 07-16-2019 16:080400 Body weight 99.34 kg Lucia Alcala LPN [place] [employer] [facility], Inc.; [employer], Inc[employer] 07-16-2019 16:08-0400 Diastolic blood pressure 75 mm[Hg] Lucia Alcala LPN [place] [employer] [facility], Inc.; [employer], [employer] 07-16-2019 16:08-0400 Heart rate 48 /min Lucia Alcala LPN [place] [employer] [facility], Inc.; [employer], [employer] 07-16-2019 16:08-0400 Inhaled oxygen concentration 20 % Lcuia Alcala LPN [place] [employer] [facility], Inc.; [employer], [employer] 07-16-2019 16:08-0400 SaO2% (BldA) [Mass fraction] 96 % Lucia Alcala LPN [place] [employer] [facility], Inc.; [employer], [employer] 07-16-2019 16:08-0400 Systolic blood pressure 128 mm[Hg] Lucia Alcala LPN [place] [employer] Inc.; [employer], [employer] 06-26-2019 07:47-0400 Body height 177.8 cm Gris Gonzalez Amy [employer].; [employer], [employer] 06-26-2019 07:47-0400 Body mass index (BMI) [Ratio] 29.56 kg/m2 DebbyLisa Reyes LPN [employer], Inc.; [employer], Inc[employer] 06-26-2019 07:47-0400 Body surface area Derived from formula 2.11 m2 Gris Reyes [employer] [facility], Inc.; [employer] [facility], Inc. 06-26-2019 07:47-0400 Body temperature 97.6 [degF] Gris Reyes [facility], Inc.; [email or web address] 06-26-2019 07:47-0400 Body weight 93.44 kg [facility].; [employer], Inc[employer] 06-26-2019 07:47-0400 Diastolic blood pressure 67 mm[Hg] [facility] Amy [facility], Inc.; [employer], [employer]. 06-26-2019 07:47-0400 Heart rate 52 /min [facility].; [employer], Inc. 06-26-2019 07:47-0400 Inhaled oxygen concentration 20 % [facility], Inc.; [place] [employer] 06-26-2019 07:47-0400 SaO2% (BldA) [Mass fraction] 98 % [facility] Amy [facility], Inc.; [email or web address], [employer]. 06-26-2019 07:47-0400 Systolic blood pressure 106 mm[Hg] Debby Stuckey [facility], Inc.; [email or web address] 06-20-2019 12:53-0400 Body height 177.8 cm Krissy Bell LPN [facility], Inc.; [employer], [employer] 06-20-2019 12:53-0400 Body mass index (BMI) [Ratio] 31.71 kg/m2 Krissy Bell [facility], Inc.; [email or web address], [employer]. 06-20-2019 12:53-0400 Body surface area Derived from formula 2.18 m2 Krissy Bell [facility], Inc.; [email or web address] 06-20-2019 12:53-0400 Body temperature 98.2 [degF] Krissy Bell [facility], Inc.; [email or web address] 06-20-2019 12:53-0400 Body weight 100.25 kg Krissy Bell LPN [employer] [facility], Inc.; [employer]. 06-20-2019 12:53-0400 Diastolic blood pressure 91 mm[Hg] Krissy Bell LPN [email or web address].; [employer], [employer] 06-20-2019 12:53-0400 Heart rate 54 /min Krissy Bell LPN [employer], Inc.; [employer], Inc[employer] 06-20-2019 12:53-0400 Inhaled oxygen concentration 28 % Krissy Messicharlotte [email or web address] Inc.; [employer], [employer]. 06-20-2019 12:53-0400 SaO2% (BldA) [Mass fraction] 97 % Krissy Messicharlotte [email or web address].; [employer]. 06-20-2019 12:53-0400 Systolic blood pressure 147 mm[Hg] Krissy Bell LPN [email or web address].; [employer], [employer]. 06-20-2019 12:53-0400 2 L/min Krissy Bell LPN [employer], Inc.; [employer], [employer] 04-05-2019 10:15-0400 Body height 177.8 cm Montserrat Chong [email or web address].; [employer]. 04-05-2019 10:15-0400 Body mass index (BMI) [Ratio] 30.42 kg/m2 Montserrat Chong LPN [email or web address], [employer].; [employer]. 04-05-2019 10:15-0400 Body surface area Derived from formula 2.14 m2 Montserrat Chong LPN [email or web address].; [employer]. 04-05-2019 10:15-0400 Body weight 96.16 kg Montserrat Chong LPN [email or web address].; [employer]. 04-05-2019 10:15-0400 Diastolic blood pressure 68 mm[Hg] Montserrat Chong LPN [employer].; [employer]. 04-05-2019 10:15-0400 Heart rate 68 /min Montserrat Chong [facility] [employer] Inc.; [employer] Inc. 04-05-2019 10:15-0400 Systolic blood pressure 112 mm[Hg] Montserrat Chong [facility] [employer] Inc.; [employer] Inc. 01-11-2019 10:21-0400 Body height 177.8 cm Amanda Guzman MD Work Phone: [employer].; [employer] 01-11-2019 10:21-0400 Body mass index (BMI) [Ratio] 28.7 kg/m2 Amanda Guzman MD Work Phone: [employer].; [employer] 01-11-2019 10:21-0400 Body surface area Derived from formula 2.09 m2 Amanda Guzman MD Work Phone: [employer].; [employer] 01-11-2019 10:21-0400 Body weight 90.72 kg Amanda Guzman MD Work Phone: [employer].; [employer]. 01-11-2019 10:21-0400 Diastolic blood pressure 54 mm[Hg] Amanda Guzman MD Work Phone: [employer].; [employer]. 01-11-2019 10:21-0400 Heart rate 51 /min Amanda Guzman MD Work Phone: [employer].; [employer]. 01-11-2019 10:21-0400 Systolic blood pressure 96 mm[Hg] Amanda Guzman MD Work Phone: [employer].; [employer] 12-10-2018 08:56-0400 Body height 177.8 cm Gris Avitiauckey [facility] [employer].; [employer]. 12-10-2018 08:56-0400 Body mass index (BMI) [Ratio] 28.27 kg/m2 Gris Reyes [email or web address], Inc.; [employer], [employer]. 12-10-2018 08:56-0400 Body surface area Derived from formula 2.07 m2 Debby Amy [email or web address], Inc.; [employer], [employer] 12-10-2018 08:56-0400 Body temperature 98.9 [degF] Gris Reyes [email or web address] Inc.; [employer], [employer] 12-10-2018 08:56-0400 Body weight 89.36 kg Gris Reyes [email or web address] Inc.; [employer], [employer]. 12-10-2018 08:56-0400 Diastolic blood pressure 65 mm[Hg] Gris Reyes [email or web address] Inc.; [employer], [employer]. 12-10-2018 08:56-0400 Heart rate 56 /min [facility] Amy [email or web address], Inc.; [employer], [employer]. 12-10-2018 08:56-0400 Systolic blood pressure 101 mm[Hg] Gris Reyes [facility] [employer], [employer].; [employer], [employer]. 10-26-2018 11:26-0500 Body height 177.8 cm Gaby Mathias RN [employer].; [employer], [employer]. 10-26-2018 11:26-0500 Body mass index (BMI) [Ratio] 29.27 kg/m2 Gaby Mathias RN [email or web address], [employer].; [employer], [employer]. 10-26-2018 11:26-0500 Body surface area Derived from formula 2.11 m2 Gaby Mathias RN [email or web address], [employer].; [employer]. 10-26-2018 11:26-0500 Body temperature 98.8 [degF] Gaby Mathias RN [email or web address], [employer].; [employer], [employer]. 10-26-2018 11:26-0500 Body weight 92.53 kg Gaby Mathias RN [email or web address], [employer].; [employer]. 10-26-2018 11:26-0500 Diastolic blood pressure 83 mm[Hg] Gaby Mathias RN [employer].; [employer]. 10-26-2018 11:26-0500 Heart rate 56 /min Gaby Mathias RN [employer].; [employer]. 10-26-2018 11:26-0500 Inhaled oxygen concentration 20 % Gaby Mathias RN [employer].; [employer]. 10-26-2018 11:26-0500 SaO2% (BldA) [Mass fraction] 97 % Gaby Mathias RN [employer].; [employer]. 10-26-2018 11:26-0500 Systolic blood pressure 153 mm[Hg] Gaby Mathias RN [employer].; [employer]. 10-05-2018 08:58-0500 Body height 177.8 cm Amanda Guzman MD Work Phone: [employer].; [employer]. 10-05-2018 08:58-0500 Body mass index (BMI) [Ratio] 28.55 kg/m2 Amanda Guzman MD Work Phone: [employer].; [employer]. 10-05-2018 08:58-0500 Body surface area Derived from formula 2.08 m2 Amanda Guzman MD Work Phone: [employer].; [employer]. 10-05-2018 08:58-0500 Body weight 90.27 kg Amanda Guzman MD Work Phone: [employer].; [employer]. 10-05-2018 08:58-0500 Diastolic blood pressure 74 mm[Hg] Amanda Guzman MD Work Phone: [employer].; [employer]. 10-05-2018 08:58-0500 Heart rate 78 /min Amanda Guzman MD Work Phone: [employer].; [employer]. 10-05-2018 08:58-0500 Inhaled oxygen concentration 20 % Amanda Guzman MD Work Phone: [employer].; [employer]. 10-05-2018 08:58-0500 SaO2% (BldA) [Mass fraction] 92 % Amanda Guzman MD Work Phone: [employer].; [employer]. 10-05-2018 08:58-0500 Systolic blood pressure 138 mm[Hg] Amanda Guzman MD Work Phone: [employer].; [employer]. 09-14-2018 13:12-0500 Body height 177.8 cm Hemanta Gogoi (scribe) [employer]. 09-14-2018 13:12-0500 Body mass index (BMI) [Ratio] 26.11 kg/m2 Inzen Studioanta Gogoi (scribe) [employer]. 09-14-2018 13:12-0500 Body surface area Derived from formula 2.01 m2 Denty'sgoi (scribe) [employer]. 09-14-2018 13:12-0500 Body weight 82.56 kg Aquaporin Gogoi (scribe) [employer]. 09-14-2018 13:12-0500 Diastolic blood pressure 52 mm[Hg] Hemanta Gogoi (scribe) [employer]. 09-14-2018 13:12-0500 Heart rate 50 /min Hemanta Gogoi (scribe) [employer]. 09-14-2018 13:12-0500 Systolic blood pressure 90 mm[Hg] Hemanta Gogoi (scribe) [employer]. 08-23-2018 15:55-0500 Body height 177.8 cm Hemanta Gogoi (scribe) [employer]. 08-23-2018 15:55-0500 Body mass index (BMI) [Ratio] 26.54 kg/m2 [facility] [employer].; [employer]. 08-23-2018 15:55-0500 Body surface area Derived from formula 2.02 m2 [facility] Brettgoi ([facility]) [employer] [facility] Company Inc.; [employer]Pred[employer]. 08-23-2018 15:55-0500 Body temperature 98.1 [degF] Hemregina Westgoi ([facility]) [employer] [facility] South[facility]ee.; [employer]Pred[employer]. 08-23-2018 15:55-0500 Body weight 83.92 kg Hemanta Bretti ([facility]) [employer].; [employer]. 08-23-2018 15:55-0500 Diastolic blood pressure 72 mm[Hg] [facility] ([facility]) [employer].; [employer]. 08-23-2018 15:55-0500 Heart rate 52 /min [facility] Bretti ([facility]) [employer].; [employer]. 08-23-2018 15:55-0500 Inhaled oxygen concentration 20 % [facility] Bret[place] ([facility]) [employer].; [employer]. 08-23-2018 15:55-0500 SaO2% (BldA) [Mass fraction] 98 % [facility] ([facility]) [employer].; [employer]. 08-23-2018 15:55-0500 Systolic blood pressure 130 mm[Hg] Hemanta Brettgoi (scribe) [employer].; [employer]. 08-23-2018 14:31-0500 Body height 177.8 cm Hemanta Bretti ([facility] hospitalInfotone Communicationse) [employer].; [employer]. 08-23-2018 14:31-0500 Body mass index (BMI) [Ratio] 26.54 kg/m2 Hemanta Gogoi (scribe) [employer].; [employer]. 08-23-2018 14:31-0500 Body surface area Derived from formula 2.02 m2 [facility] Brettgoi (scribe) [employer].; [employer]. 08-23-2018 14:31-0500 Body temperature 98.1 [degF] Hemregina Enriquei ([employer]) [employer].; [employer]. 08-23-2018 14:31-0500 Body weight 83.92 kg Hemregina Enriquei ([facility]) [employer].; [employer]. 08-23-2018 14:31-0500 Diastolic blood pressure 68 mm[Hg] [facility] Ivai ([place]) [employer].; [employer]. 08-23-2018 14:31-0500 Heart rate 52 /min [facility] Tilana [employer]si ([place]) [employer].; [employer]. 08-23-2018 14:31-0500 Inhaled oxygen concentration 20 % [facility] [employer] ([place]) [employer].; [employer]. 08-23-2018 14:31-0500 SaO2% (BldA) [Mass fraction] 98 % [facility] Tilana Systemsbretti ([place]) [employer].; [employer]. 08-23-2018 14:31-0500 Systolic blood pressure 128 mm[Hg] [facility] ([place]) [employer].; [employer]. 07-30-2018 08:48-0500 Body height 177.8 cm [facility] Ivai ([facility]) [employer].; [employer]. 07-30-2018 08:48-0500 Body mass index (BMI) [Ratio] 26.11 kg/m2 Inzen [facility] Tilana Systemsi ([place]) [employer].; [employer]. 07-30-2018 08:48-0500 Body surface area Derived from formula 2.01 m2 Hemanta Brettgoi ([employer]) [employer].; [employer]. 07-30-2018 08:48-0500 Body temperature 99 [degF] Hemregina Vieira (scribe) Clay [employer] [facility], Inc.; [employer]. 07-30-2018 08:48-0500 Body weight 82.56 kg Hemregina Vieira (scribe) [place] [employer] [facility], Inc.; [employer]. 07-30-2018 08:48-0500 Diastolic blood pressure 41 mm[Hg] Hemregina Enriquei (scribe) [facility], Inc.; [email or web address], Inc. 07-30-2018 08:48-0500 Heart rate 49 /min Hemregina Enriquei (scribe) Clay [employer] [facility], Inc.; [employer]. 07-30-2018 08:48-0500 Inhaled oxygen concentration 20 % [facility] Brettjorje ([facility]) [place] [employer] [facility], Inc.; [employer]. 07-30-2018 08:48-0500 SaO2% (BldA) [Mass fraction] 92 % Hemregina Vieira ([facility]) Clay [employer] [facility], Inc.; [email or web address], [employer]. 07-30-2018 08:48-0500 Systolic blood pressure 91 mm[Hg] Aydin Vieira (scribe) [employer] [facility], Inc.; [email or web address], [employer]. 07-18-2018 10:16-0400 Body height 177.8 cm Montserrat Chong [email or web address], Inc.; [employer]. 07-18-2018 10:16-0400 Body mass index (BMI) [Ratio] 26.11 kg/m2 Montserrat Chong [email or web address], Inc.; [employer]. 07-18-2018 10:16-0400 Body surface area Derived from formula 2.01 m2 Montserrat Chong LPN [email or web address], [employer].; [employer]. 07-18-2018 10:16-0400 Body weight 82.56 kg Montserrat Chong [email or web address], [employer].; [employer]. 07-18-2018 10:16-0400 Diastolic blood pressure 52 mm[Hg] Montserrat Chong LPN [email or web address].; [employer]. 07-18-2018 10:16-0400 Heart rate 51 /min Montserrat Chong [email or web address] Inc.; [employer], [employer]. 07-18-2018 10:16-0400 Systolic blood pressure 100 mm[Hg] Montserrat Chong [email or web address], Inc.; [employer] 07-04-2018 08:20-0400 Body height 177.8 cm Montserrat Chong [email or web address], Inc.; [employer], [employer]. 07-04-2018 08:20-0400 Body mass index (BMI) [Ratio] 27.26 kg/m2 Montserrat Chong [email or web address], Inc.; [employer] 07-04-2018 08:20-0400 Body surface area Derived from formula 2.04 m2 Montserrat Starkach [email or web address], Inc.; [employer], [employer]. 07-04-2018 08:20-0400 Body weight 86.18 kg Montserrat Chong [email or web address], Inc.; [employer], [employer]. 07-04-2018 08:20-0400 Diastolic blood pressure 77 mm[Hg] Montserrat Chong [email or web address], Inc.; [employer] 07-04-2018 08:20-0400 Heart rate 53 /min Montserrat Chong [email or web address], Inc.; [employer], [employer]. 07-04-2018 08:20-0400 Systolic blood pressure 136 mm[Hg] Montserrat Chong [email or web address], [employer].; [employer]. 05-07-2018 10:31-0400 Body height 177.8 cm Montserrat Chong [facility] [employer], [employer]. 05-07-2018 10:31-0400 Body mass index (BMI) [Ratio] 28.41 kg/m2 Montserrat Chong [employer]. 05-07-2018 10:31-0400 Body surface area Derived from formula 2.08 m2 Montserrat Starkach [facility] [employer] [facility], Inc.; [employer] 05-07-2018 10:31-0400 Body weight 89.81 kg Montserrat Licea Castillo XIE [employer] [facility], Inc.; [employer] 05-07-2018 10:31-0400 Diastolic blood pressure 69 mm[Hg] Montserrat Licea Castillo [email or web address], Inc.; [employer] 05-07-2018 10:31-0400 Heart rate 55 /min Montserrat Licea Castillo [facility] [employer] Software Inc.; [employer]. 05-07-2018 10:31-0400 Systolic blood pressure 121 mm[Hg] Montserrat Licea Castillo XIE [employer].; [employer] 04-09-2018 15:03-0400 Body height 177.8 cm Hemanta Gogoi (scribe) [employer] [facility], Inc.; [employer]. 04-09-2018 15:03-0400 Body mass index (BMI) [Ratio] 26.97 kg/m2 Hemanta Gogoi (scribe) [email or web address], Inc.; [employer]. 04-09-2018 15:03-0400 Body surface area Derived from formula 2.03 m2 Hemanta Gogoi (scribe) [email or web address], Inc.; [employer] 04-09-2018 15:03-0400 Body weight 85.28 kg Hemanta Gogoi (scribe) [email or web address], Inc.; [employer] 04-09-2018 15:03-0400 Diastolic blood pressure 56 mm[Hg] Hemanta Gogoi (scribe) [email or web address].; [employer]. 04-09-2018 15:03-0400 Heart rate 63 /min Hemanta Gogoi (scribe) [email or web address], [employer].; [employer] 04-09-2018 15:03-0400 Systolic blood pressure 98 mm[Hg] Hemanta Gogoi (scribe) [email or web address], [employer].; [employer]. 09-11-2017 11:12-0500 Body height 177.8 cm Gris Reyes [employer] 09-11-2017 11:12-0500 Body mass index (BMI) [Ratio] 32.86 kg/m2 Gris Reyes [email or web address], Inc.; [employer] 09-11-2017 11:12-0500 Body surface area Derived from formula 2.21 m2 Gris Reyes [email or web address], [employer].; [employer] 09-11-2017 11:12-0500 Body weight 103.87 kg Gris Reyes [employer] 09-11-2017 11:12-0500 Diastolic blood pressure 82 mm[Hg] Gris Reyes [email or web address], [employer].; [employer] 09-11-2017 11:12-0500 Heart rate 73 /min Gris Reyes [email or web address], [employer].; [employer] 09-11-2017 11:12-0500 Systolic blood pressure 140 mm[Hg] Gris Reyes [employer] 09-01-2017 10:130500 Body height 177.8 cm Alo Noguera) [email or web address], [employer].; [employer] 09-01-2017 10:130500 Body mass index (BMI) [Ratio] 32.57 kg/m2 Alo Noguera) [email or web address], [employer].; [employer] 09-01-2017 10:13-0500 Body surface area Derived from formula 2.2 m2 Alo Noguera) [email or web address], [employer].; [employer] 09-01-2017 10:130500 Body weight 102.97 kg Alo Noguera) [email or web address], [employer].; [employer] 09-01-2017 10:13-0500 Diastolic blood pressure 68 mm[Hg] Alo Noguera) [email or web address], [employer].; [employer]. 09-01-2017 10:13-0500 Systolic blood pressure 122 mm[Hg] Alo Noguera) Clay[employer] [facility] SouthMathZee.; [employer] 08-24-2017 09:47-0500 Body height 177.8 cm Gaby Mathias RN [employer].; [employer]. 08-24-2017 09:47-0500 Body mass index (BMI) [Ratio] 33.43 kg/m2 Gaby Mathias RN [employer].; [employer]. 08-24-2017 09:47-0500 Body surface area Derived from formula 2.23 m2 Gaby Mathias RN [employer].; [employer]. 08-24-2017 09:47-0500 Body temperature 98.6 [degF] Gaby Mathias RN [employer].; [employer]. 08-24-2017 09:47-0500 Body weight 105.69 kg Gaby Mathias RN [employer].; [employer]. 08-24-2017 09:47-0500 Diastolic blood pressure 76 mm[Hg] Gaby Mathias RN [employer].; [employer]. 08-24-2017 09:47-0500 Heart rate 74 /min Gaby Mathias RN [employer].; [employer]. 08-24-2017 09:47-0500 Systolic blood pressure 144 mm[Hg] Gaby Mathias RN [employer].; [employer]. 03-13-2017 14:21-0400 Body height 177.8 cm Alo Noguera) [employer].; [employer]. 03-13-2017 14:21-0400 Body mass index (BMI) [Ratio] 31.85 kg/m2 Alo Noguera) [employer].; [employer]. 03-13-2017 14:21-0400 Body surface area Derived from formula 2.18 m2 Alo Noguera) [facility], Inc.; Clay [employer] [facility] SouthAngel Group Holding Company [facility]. 03-13-2017 14:21-0400 Body weight 100.7 kg Alo Nael (Scribe) [facility], [facility].; [facility], Inc[facility] 03-13-2017 14:21-0400 Diastolic blood pressure 84 mm[Hg] Alomu Nayak (Scribe) [facility], Inc.; [place] [employer] [facility] South[facility] Holding Company Inc. 03-13-2017 14:21-0400 Heart rate 69 /min Alomu Nayak (Scribe) [facility], Inc.; [place] [employer] [facility], [employer]. 03-13-2017 14:21-0400 Systolic blood pressure 138 mm[Hg] Alomu Nayak (Scribe) [facility], Inc.; [place] [employer] [facility], Inc. 03-03-2017 10:57-0400 Body height 177.8 cm Alomu Nayak [facility], Inc.; [place] [employer] [facility], [facility]. 03-03-2017 10:57-0400 Body mass index (BMI) [Ratio] 32.71 kg/m2 Alo Nael (Scribe) [facility], Inc.; Clay [employer] [facility], [facility]. 03-03-2017 10:57-0400 Body surface area Derived from formula 2.21 m2 Alo Nael ([facility], Inc.; Clay [employer] 03-03-2017 10:57-0400 Body weight 103.42 kg Alo Nayak (Scribe) [facility], Inc.; [place] [employer], [facility]. 03-03-2017 10:57-0400 Diastolic blood pressure 78 mm[Hg] Alo Nayak (Scribe) [facility], Inc.; [employer], [employer]. 03-03-2017 10:57-0400 Heart rate 62 /min Alo Nael (Scribe) [facility], Inc.; [place] [employer] 03-03-2017 10:57-0400 Systolic blood pressure 146 mm[Hg] Alomu Nayak (Scribe) [place] [employer] [facility], Inc.; [place] [employer], [employer]. 08-15-2016 10:45-0500 Body height 177.8 cm Cindy Rodriguez LPN [place] [employer] [facility], [facility].; [employer]. 08-15-2016 10:45-0500 Body mass index (BMI) [Ratio] 32.43 kg/m2 Cindy K Mutersbaugh [employer] [place] [employer] [facility], Inc.; [employer]. 08-15-2016 10:45-0500 Body surface area Derived from formula 2.2 m2 Cindy K Mutersbaugh [email or web address], Inc.; [employer]. 08-15-2016 10:45-0500 Body weight 102.51 kg Cindy K Mutersbaugh [email or web address], [facility].; [employer]. 08-15-2016 10:45-0500 Diastolic blood pressure 86 mm[Hg] Cindy K Mutersbaugh [email or web address], [facility].; [employer]. 08-15-2016 10:45-0500 Heart rate 70 /min Cindy K Mutersbaugh [email or web address], [facility].; [employer]. 08-15-2016 10:45-0500 Systolic blood pressure 145 mm[Hg] Cindy K Mutersbaugh [email or web address], [facility].; [employer]. 01-25-2016 13:03-0400 Body height 177.8 cm Cindy K Mutersbaugh [email or web address], [facility].; [employer]. 01-25-2016 13:03-0400 Body mass index (BMI) [Ratio] 31.42 kg/m2 Cindy K Mutersbaugh [email or web address], [facility].; [employer]. 01-25-2016 13:03-0400 Body surface area Derived from formula 2.17 m2 Cindy K Mutersbaugh [employer].; [employer]. 01-25-2016 13:03-0400 Body weight 99.34 kg Cindy K Mutersbaugh [email or web address], [employer].; [employer]. 01-25-2016 13:03-0400 Diastolic blood pressure 83 mm[Hg] Cindy K Mutersbaugh [employer].; [employer] [facility], Inc. 01-25-2016 13:03-0400 Heart rate 57 /min Cindysa Wolf Rodriguez [facility], Inc.; [employer] [facility], Inc. 01-25-2016 13:03-0400 Systolic blood pressure 107 mm[Hg] Cindy Wolf Lozoyabaugh [facility], Inc.; [employer] [facility], Inc. 10-08-2015 10:56-0500 Body height 177.8 cm Gris Reyes [facility], Inc.; [email or web address], [employer]. 10-08-2015 10:56-0500 Body mass index (BMI) [Ratio] 32.57 kg/m2 Gris Reyes [facility], Inc.; [email or web address], [employer] 10-08-2015 10:56-0500 Body surface area Derived from formula 2.2 m2 Gris Reyes [facility], Inc.; [email or web address], [employer] 10-08-2015 10:56-0500 Body weight 102.97 kg Gris Reyes [facility] [employer] [facility], Inc.; [email or web address], [employer] 10-08-2015 10:56-0500 Diastolic blood pressure 78 mm[Hg] Gris Reyes [facility], Inc.; [email or web address], [employer] 10-08-2015 10:56-0500 Heart rate 72 /min Gris Reyes [facility], Inc.; [email or web address], [employer] 10-08-2015 10:56-0500 Systolic blood pressure 160 mm[Hg] Gris Reyes [facility] [employer] [facility], Inc.; [email or web address], [employer]. 04-09-2015 10:44-0400 Body height 177.8 cm Rox Starkey [employer] [place] [employer] [facility], Inc.; [email or web address], [employer] 04-09-2015 10:44-0400 Body mass index (BMI) [Ratio] 31.71 kg/m2 Rox Starkey [employer] [facility], Inc.; [email or web address], [employer]. 04-09-2015 10:44-0400 Body surface area Derived from formula 2.18 m2 Rox Starkey LPN [employer] [facility] SouthAngel Group Holding Company [facility].; [employer]Be[employer] [facility]. 04-09-2015 10:44-0400 Body weight 100.25 kg Rox Starkey LPN [employer] [facility] SouthAngel [facility] Holding Company [facility].; [employer] [facility]. 04-09-2015 10:44-0400 Diastolic blood pressure 73 mm[Hg] Rox Starkey LPN [employer] [facility] SouthAngel [facility] Holding Company Inc.; [employer] [facility]. 04-09-2015 10:44-0400 Heart rate 65 /min Rox Starkey LPN [employer] [facility] SouthAngel [facility] Holding Company [facility].; [employer] [facility]. 04-09-2015 10:44-0400 Systolic blood pressure 141 mm[Hg] Rox Starkey LPN [employer].; [employer] [facility]. 02-12-2015 08:08-0400 Body height 177.8 cm Amanda Guzman MD Work Phone: [employer].; [employer]. 02-12-2015 08:08-0400 Body mass index (BMI) [Ratio] 31.14 kg/m2 Amanda Guzman MD Work Phone: [employer].; [employer]. 02-12-2015 08:08-0400 Body surface area Derived from formula 2.16 m2 Amanda Guzman MD Work Phone: [employer].; [employer]. 02-12-2015 08:08-0400 Body weight 98.43 kg Amanda Guzman MD Work Phone: [employer].; [employer]. 02-12-2015 08:08-0400 Diastolic blood pressure 86 mm[Hg] Amanda Guzman MD Work Phone: [employer].; [employer]. 02-12-2015 08:08-0400 Heart rate 65 /min Amanda Guzman MD Work Phone: [employer].; [employer]. 02-12-2015 08:08-0400 Systolic blood pressure 128 mm[Hg] Amanda Guzman MD Work Phone: [employer].; [employer] 12-30-2014 12:23-0400 Body height 177.8 cm Amanda Guzmna MD Work Phone: [employer].; [employer] 12-30-2014 12:23-0400 Body mass index (BMI) [Ratio] 31.32 kg/m2 Amanda Guzman MD Work Phone: [employer].; [employer] 12-30-2014 12:23-0400 Body surface area Derived from formula 2.17 m2 Amanda Guzman MD Work Phone: [employer].; [employer] 12-30-2014 12:23-0400 Body weight 99 kg Amanda Guzmna MD Work Phone: [employer].; [employer] 12-30-2014 12:23-0400 Diastolic blood pressure 84 mm[Hg] Amanda Guzman MD Work Phone: [employer].; [employer]. 12-30-2014 12:23-0400 Heart rate 64 /min Amanda Guzman MD Work Phone: [employer].; [employer] 12-30-2014 12:23-0400 Systolic blood pressure 152 mm[Hg] Amanda Guzman MD Work Phone: [employer].; [employer] 06-16-2014 11:03-0400 Body height 177.8 cm Ronald Bateman MD Work Phone: [employer].; [employer] 06-16-2014 11:03-0400 Body mass index (BMI) [Ratio] 30.56 kg/m2 Ronald Bateman MD Work Phone: [employer].; [employer] 06-16-2014 11:03-0400 Body surface area Derived from formula 2.14 m2 Ronald Bateman MD Work Phone: [employer].; [employer] 06-16-2014 11:03-0400 Body weight 96.62 kg Ronald Bateman MD Work Phone: [employer].; [employer] 06-16-2014 11:03-0400 Diastolic blood pressure 80 mm[Hg] Ronald Baetman MD Work Phone: [employer].; [employer] 06-16-2014 11:03-0400 Heart rate 73 /min Ronald Bateman MD Work Phone: [employer].; [employer] 06-16-2014 11:03-0400 Systolic blood pressure 142 mm[Hg] Ronald Bateman MD Work Phone: [employer].; [employer] 05-30-2014 10:45-0400 Body height 177.8 cm Rox Starkey LPN [employer] 05-30-2014 10:45-0400 Body mass index (BMI) [Ratio] 30.71 kg/m2 Rox Starkey LPN [employer] 05-30-2014 10:45-0400 Body surface area Derived from formula 2.15 m2 Rox Starkey LPN [employer].; [employer] 05-30-2014 10:45-0400 Body weight 97.07 kg Rox Starkey LPN [employer].; [employer] 05-30-2014 10:45-0400 Diastolic blood pressure 97 mm[Hg] Rox Starkey LPN [employer] 05-30-2014 10:45-0400 Heart rate 68 /min Rox Starkey LPN [employer] 05-30-2014 10:45-0400 Systolic blood pressure 169 mm[Hg] Rox Starkey LPN [employer].; [employer] 12-16-2013 13:30-0400 Body weight 99.79 kg Ronald Bateman MD Work Phone: [employer].; [employer] 12-16-2013 13:30-0400 Diastolic blood pressure 92 mm[Hg] Ronald Bateman MD Work Phone: [employer].; [employer] 12-16-2013 13:30-0400 Heart rate 65 /min Ronald Bateman MD Work Phone: [employer].; [employer] 12-16-2013 13:30-0400 Systolic blood pressure 162 mm[Hg] Ronald Bateman MD Work Phone: [employer].; [employer] 06-17-2013 10:30-0400 Body weight 99.34 kg Ronald Bateman MD Work Phone: [employer].; [employer] 06-17-2013 10:30-0400 Diastolic blood pressure 78 mm[Hg] Ronald Bateman MD Work Phone: [employer] 06-17-2013 10:30-0400 Heart rate 71 /min Ronald Bateman MD Work Phone: [employer] 06-17-2013 10:30-0400 Systolic blood pressure 148 mm[Hg] Ronald Bateman MD Work Phone: [employer] 09-05-2012 11:09-0500 Body height 177.8 cm Debby Amy [facility] [employer] 09-05-2012 11:09-0500 Body mass index (BMI) [Ratio] 31.57 kg/m2 [facility] [employer] 09-05-2012 11:09-0500 Body surface area Derived from formula 2.17 m2 Gris Reyes [facility], Inc.; [employer], [employer] 09-05-2012 11:09-0500 Body temperature 98.3 [degF] Gris Reyes [facility] [employer] [facility], Inc.; [employer] 09-05-2012 11:09-0500 Body weight 99.79 kg Gris Reyes [facility] [employer] [facility], Inc.; [employer] 09-05-2012 11:09-0500 Diastolic blood pressure 82 mm[Hg] [facility], Inc.; [employer], [employer] 09-05-2012 11:09-0500 Heart rate 65 /min Gris Reyes [facility] [employer] [facility], Inc.; [email or web address], [employer] 09-05-2012 11:09-0500 Inhaled oxygen concentration 20 % [facility] Amy [facility], [facility].; [email or web address], [employer] 09-05-2012 11:09-0500 SaO2% (BldA) [Mass fraction] 98 % Debby Amy [facility], [facility].; [employer], [employer] 09-05-2012 11:09-0500 Systolic blood pressure 165 mm[Hg] [facility]is [facility]yes [facility], Inc[employer], [employer] 08-09-2012 10:19-0500 Body height 177.8 cm Ronald Bateman MD Work Phone: [employer], [employer] 08-09-2012 10:19-0500 Body mass index (BMI) [Ratio] 31.42 kg/m2 Ronald Bateman MD Work Phone: [employer] 08-09-2012 10:19-0500 Body surface area Derived from formula 2.17 m2 Ronald Bateman MD Work Phone: [employer] 08-09-2012 10:19-0500 Body weight 99.34 kg Ronald Bateman MD Work Phone: [employer] 08-09-2012 10:19-0500 Diastolic blood pressure 80 mm[Hg] Ronald Bateman MD Work Phone: [employer] 08-09-2012 10:19-0500 Heart rate 63 /min Ronald Bateman MD Work Phone: [employer] 08-09-2012 10:19-0500 Systolic blood pressure 152 mm[Hg] Ronald Bateman MD Work Phone: [employer] 02-15-2012 10:25-0400 Body height 177.8 cm Ronald Bateman MD Work Phone: [employer] 02-15-2012 10:25-0400 Body mass index (BMI) [Ratio] 31.28 kg/m2 Ronald Batemna MD Work Phone: [employer] 02-15-2012 10:25-0400 Body surface area Derived from formula 2.17 m2 Ronald Bateman MD Work Phone: [employer] 02-15-2012 10:25-0400 Body weight 98.88 kg Ronald Bateman MD Work Phone: [employer] 02-15-2012 10:25-0400 Diastolic blood pressure 84 mm[Hg] Ronald Bateman MD Work Phone: [employer] 02-15-2012 10:25-0400 Heart rate 58 /min Ronald Bateman MD Work Phone: [employer] 02-15-2012 10:25-0400 Systolic blood pressure 128 mm[Hg] Ronald Bateman MD Work Phone: [employer] 01-28-2011 13:09-0400 Body weight 96.16 kg Edna Faria [employer] 01-28-2011 13:09-0400 Diastolic blood pressure 81 mm[Hg] Edna Faria LPN [employer] 01-28-2011 13:09-0400 Heart rate 62 /min Edna Faria [employer] 01-28-2011 13:09-0400 Systolic blood pressure 164 mm[Hg] Edna Faria [employer] 11-08-2010 12:09-0500 Body weight 95.26 kg Ronald Bateman MD Work Phone: [employer] 11-08-2010 12:09-0500 Diastolic blood pressure 95 mm[Hg] Ronald Bateman MD Work Phone: [employer] 11-08-2010 12:09-0500 Heart rate 71 /min Ronald Bateman MD Work Phone: [employer] 11-08-2010 12:09-0500 Systolic blood pressure 175 mm[Hg] Ronald Bateman MD Work Phone: [employer] 10-04-2010 16:47-0500 Body temperature 98 [degF] Montserrat Chong LPN [employer] 10-04-2010 16:47-0500 Body weight 97.07 kg Montserrat Chong LPN [employer] 10-04-2010 16:47-0500 Diastolic blood pressure 92 mm[Hg] Montserrat Chong LPN [employer] 10-04-2010 16:47-0500 Heart rate 70 /min Montserrat Chong LPN [facility], Inc.; [employer] [facility], Inc[employer] 10-04-2010 16:47-0500 Systolic blood pressure 191 mm[Hg] Montserrat Chong LPN [facility], Inc.; [employer] [facility], [facility]. Encounters Encounter Date Encounter Type Care Provider Facility Start: 09-29-2023 End: 09-29-2023 ambulatory AMANDA ADAMS Facility:[facility] Start: 09-28-2023 End: 09-28-2023 [facility] Start: 09-28-2023 End: 09-28-2023 Office outpatient visit 25 minutes Steff Muhammad MD Work Phone: [facility] Procedures Date Procedure Procedure Detail Performing Clinician Start: 08-31-2023 Ct abdomen w/contras t material Amanda Adams MD Work Phone: Start: 04-19-2023 Eeg extended monitor ing 61-119 minutes Steff Muhammad MD Work Phone: Start: 03-03-2023 End: 03-09-2023 Duplex scan extracranial art compl bi study Kaylin Hui PA-C Work Phone: Start: 01-05-2023 End: 01-05-2023 Adv care pln tlkd & alt dcsn maker docd Kaylin Hui PA-C Work Phone: Start: 01-05-2023 End: 01-05-2023 Depression screening Kaylin Vela Work Phone: Start: 01-05-2023 End: 01-05-2023 Falls risk assessment documented Kaylin Hui PA-C Work Phone: Start: 01-05-2023 End: 01-05-2023 Pos clin depres scrn f/u doc Kaylin melendez PA-C Work Phone: Start: 01-05-2023 End: 01-05-2023 PPPS, subseq visit Kaylin Garcia Work Phone: Start: 01-05-2023 End: 01-05-2023 Pt falls assess docd 2/> falls/fall w/injury/yr Kaylin PEGUERO-C Work Phone: Start: 11-27-2022 End: 11-27-2022 EKG impression Audrey Hernandez Start: 09-27-2022 End: 09-27-2022 Pulmonary stress testing Sonu mittal MD Work Phone: Start: 09-27-2022 Radiologic exam swal low function contrast study Janneth Coffey MD Work Phone: Start: 07-07-2022 End: 07-07-2022 Lab findings surveillance Alexa Tavera Start: 07-07-2022 End: 07-07-2022 Alexa Vieyra MA Start: 12-30-2021 End: 12-30-2021 Prostate specific antigen measurement Alexa Vieyra MA Start: 12-30-2021 End: 12-30-2021 Alexa Vieyra MA Start: 12-27-2021 End: 12-27-2021 Depression screening Kaylin PEGUERO -C Work Phone: Start: 12-27-2021 End: 12-27-2021 Falls risk assessment documented Kaylin PEGUERO-C Work Phone: Start: 12-27-2021 End: 12-27-2021 Pos clin depres scrn f/u doc Kaylin PEGUERO-Radha Work Phone: Start: 12-27-2021 End: 12-27-2021 PPPS, subseq visit Kaylin PEGUERO- C Work Phone: Start: 12-27-2021 End: 12-27-2021 Pt falls assess docd 2/> falls/fall w/injury/yr Kaylin PEGUERO-C Work Phone: Start: 11-17-2021 End: 11-18-2021 Radex ankle complete minimum 3 views Kaylin PEGUERO-C Work Phone: Start: 05-12-2021 End: 05-12-2021 Alexa Vieyra MA Start: 12-07-2020 End: 12-09-2020 Radiologic examination tibia & fibula 2 views Breanna Baez PA-C Work Phone: Start: 10-26-2020 End: 10-26-2020 Cataract surgery Alexa Vieyra MA Start: 11-19-2019 End: 11-19-2019 Screening for malignant neoplasm of large intestine Alexa Vieyra MA Start: 08-02-2019 End: 08-05-2019 Radex ribs uni w/posteroant ch minimum 3 views Amanda Guzman MD Work Phone: Start: 01-28-2019 End: 01-28-2019 Alexa Vieyra MA Start: 01-11-2019 End: 02-11-2019 Oncology colorectal screening paty 10 dna markrs Amanda Guzman MD Work Phone: Start: 10-05-2018 End: 10-11-2018 Radiologic exam chest 2 views Amanda landaverde MD Work Phone: Start: 05-07-2018 End: 05-07-2018 Falls risk assessment documented Amanda Guzman MD Work Phone: Start: 05-07-2018 End: 05-07-2018 Depression screen annual Amanda Barnett Work Phone: Start: 11-06-2017 Lipid 1996 panel - S antony or Plasma Amanda Adams MD Work Phone: Start: 09-28-2017 End: 09-28-2017 Alexa Vieyra MA Start: 09-25-2017 End: 09-25-2017 Alexa Vieyra MA Start: 09-11-2017 End: 09-11-2017 Body mass index documented Amanda Guzman MD Work Phone: Start: 09-11-2017 End: 09-11-2017 Flu imm no admin doc martina Barnett Work Phone: Start: 09-01-2017 End: 09-01-2017 Body mass index documented Amanda Guzman MD Work Phone: Start: 09-01-2017 End: 09-01-2017 Flu imm no admin doc martina Barnett Work Phone: Start: 09-01-2017 End: 09-01-2017 Most recent diastolic blood pressure < 80 mm hg Amanda Guzman MD Work Phone: Start: 09-01-2017 End: 09-01-2017 Most recent systolic blood pressure <130 mm hg Amanda Guzman MD Work Phone: Start: 08-24-2017 End: 08-24-2017 Body mass index documented Amanda Guzman MD Work Phone: Start: 01-16-2015 End: 01-16-2015 Catheterization of left heart Alexa Lee od, MA Start: 05-31-2014 End: 05-31-2014 Injection single/simulation educator trigger point 1/2 muscles Amanda Guzman MD Work Phone: Start: 05-30-2014 End: 11-25-2015 Radex spine lumbosacral minimum 4 views Amanda Guzman MD Work Phone: Start: 01-31-2011 End: 09-15-2011 Myocardial spect multiple studies Ronald Bateman MD Work Phone: Start: 10-04-2010 End: 10-04-2010 Tympanometry Ronald Bateman MD Work Phone: Start: 09-25-2005 End: 09-25-2005 Hemorrhoidectomy Alexa Vieyra MA Coronary artery bypass graft Referring Provider Unknown Destructive procedure Referr ing Provider Unknown H/O: gastrostomy Judy Sandoval gg [employer] H/O: gastrostomy Kaylin Hemant rivera PA-C Work Phone: Implantation of auto matic cardiac defibrillator Alexa Vieyra MA Incision of trachea Referrin g Provider Unknown Insertion of pulse g enerator of implantable cardioverter defibrillator Referring Provider Unknown Plan of Treatment Date Care Activity Detail Author Start: 11-26-2025 DIABETES SCREEN DIABETES SCREEN [facility] Start: 11-26-2025 Diabetes Screening Diabetes Screening [facility] Start: 05-27-2025 DTaP/Tdap/Td Vaccines (2 - Td or Tdap) DTaP/Tdap/Td Vaccines (2 - Td or Tdap) [facility] Start: 05-16-2024 DIABETES SCREEN DIABETES SCREEN [facility] Start: 02-27-2024 End: 02-27-2024 Patient encounter procedure 02/27/2024 1:00 PM EDT Office Visit [facility] [address] [place] [id number] Steff Muhammad MD [address] [place] [address] [facility] Start: 09-28-2023 End: 09-28-2023 Patient encounter procedure 09/28/2023 1:30 PM EST Office Visit [facility] [address] [place] [address] Steff Muhammad MD [address] [place] [address] [facility] Start: 08-30-2023 End: 11-29-2023 CREATININE BLD CREATININE BLD Lab Routine Chronic pancreatitis, unspecified pancreatitis type (HCC) Expected: 08/30/2023, Expires: 11/29/2023 [facility] Work Phone: Immunizations Immunization Date Immunization Notes Care Provider Fa cili 08-26-2022 Kaylin Hui PA-C Work Phone: [facility]. 08-26-2022 influenza virus vaccine, unspecified formulation Steff Muhammad MD Work Phone: [facility] 07-27-2021 Moderna COVID-19 Vaccine 100 MCG/0.5ML Intramuscular Suspension Referring Provider Unknown AH-Tsjiqke-Mmpfav l 2100 Work Phone: 07-26-2021 Kaylin Hui PA-C Work Phone: [employer] [facility] [employer] 07-13-2021 Fluzone High-Dose Quadrivalent 0.7 ML Intramuscular Suspension Prefilled Syringe Referring Provider Unknown SJ-Nygowqz-Mnuomp l 2100 Work Phone: 07-13-2021 pneumococcal polysaccharide vaccine, 23 valent Referring Provider Unknown ZD-Ahvjpwb-Kmhpfd l 2100 Work Phone: 12-03-2020 Moderna COVID-19 Vaccine 100 MCG/0.5ML Intramuscular Suspension Referring Provider Unknown [facility]; [facility] 11-05-2020 Moderna COVID-19 Vaccine 100 MCG/0.5ML Intramuscular Suspension Referring Provider Unknown [facility]; [facility] 07-30-2020 zoster vaccine recombinant Sonu Riojas MD Work Phone: [facility] 07-16-2020 influenza, high dose seasonal, preservative-free Kaylin Hui PA-C Work Phone: [facility]; [facility] 07-16-2020 influenza, high-dose , quadrivalent vaccine (FLUZONE HIGH DOSE QUADRIVALENT) Sonu Riojas MD Work Phone: [facility] 04-17-2020 zoster vaccine recombinant Sonu Riojas MD Work Phone: [facility] 08-02-2019 influenza, injectabl e, quadrivalent, contains preservative Sonu Riojas MD Work Phone: [facility] 09-14-2018 pneumococcal conjuga te vaccine, 13 valent Sonu Riojas MD Work Phone: [facility] 06-26-2018 influenza, injectabl e, quadrivalent, contains preservative Referring Provider Unknown [facility]; [facility] 11-17-2017 influenza, high dose seasonal, preservative-free Sonu Riojas MD Work Phone: [facility] 05-27-2015 tetanus toxoid, redu thea diphtheria toxoid, and acellular pertussis vaccine, adsorbed Kaylin Hui PA-C Work Phone: [facility] NEGATED: Highlighted row has not occurred!05-16-2021 pneumococcal polysaccharide vaccine, 23 valent Sonu Riojas MD Work Phone: [facility] NEGATED: Highlighted row has not occurred! influenza, seasonal, injectable Kaylin Hui PA-C Work Phone: [facility] Payers Date Payer Category Payer Unknown [employer]GELA M[employer]ER [employer] DICARE SUPPLEMENT [id number] 2020-Present [phone] [address] [place] [address] Indemnity [id number] 2019 Unknown 2019 Unknown [id number] 2018 Private Health Insurance 2017 Medicare MEDICARE MEDICAR E A AND B [id number] 2017-Present [phone] [address] [address] [place] [address] Medicare [id number] 2017 Medicare [id number] 2017 Medicare [id number] 1950 Unknown [id number] 1952 Unknown [id number] 1952 Unknown [id number] 1952 Unknown [id number] 1952 Unknown [id number] 1952 Unknown [id number] 1952 Unknown [id number] Private Health Insurance [id number] Social History Date Type Detail Facility Tobacco smoking stat us NJIS Unknown if ever smoked [facility] Start: 1950 Sex Assigned At Not on file [facility] Start: 05-03-2017 End: 07-27-2022 Tobacco smoking status NHIS Ex-smoker [facility] Work Phone: End: 05-03-2007 History of tobacco use Current smoker [facility] Work Phone: End: 05-03-2007 History of tobacco use Cigarette Smoker [facility] Work Phone: Start: 05-03-2017 End: 04-12-2023 Tobacco use and exposure Smokeless tobacco non-user [facility] Work Phone: Start: 06-16-2021 End: 09-28-2023 Alcohol intake Current drinker of alcohol (finding) [facility] Start: 06-16-2021 End: 04-12-2023 Alcohol intake [facility], [employer] [facility] Start: 07-14-2020 End: 07-27-2022 Tobacco Comment social smoker. [facility] Start: 1950 Sex Assigned At Male [facility] Start: 01-30-2022 End: 04-19-2023 Exposure to SARS-CoV-2 (event) Not sure [facility] Tobacco smoking consumption unknown [facility] Start: 09-27-2022 End: 04-12-2023 Tobacco use panel [facility] Start: 02-08-2021 Gender identity Identifies as male gender (finding) [facility] Start: 02-08-2021 Sexual orientation Heterosexual (finding) [facility] Start: 04-12-2023 Tobacco smoking status NHIS Never smoked tobacco [facility] National Score (1-10 0), lower number is lower risk 50 [facility] Never smoker. [facility], [employer] [facility], [facility] Medical Equipment Procedure Code Equipment Code Equipment Origin al Text Equipment Identifier Dates Kit [employer]ky 20fr Silicone Peg Pull Method Safety Sterile - [id number] Start: 10-31-2017 Tube Bivona Tts 10.5mm 7.5mm Silicone 80mm Tracheostomy Cuffed Adult - [id number] Start: 10-31-2017 Clinical Notes 09-25-2017 to 09-29-2023 Steff Muhammad MD - 09/28/2023 1:30 PM ESTAddendum Note - Steff Muhammad MD - 09/28/2023 1:30 PM ESTAddendum Note - Steff Muhammad MD - 09/28/2023 1:30 PM ESTMagi Ramirez - 04/21/2023 8:37 AM EDT Note Date & Type Note Facility 09-29-2023 Note HNO ID: [id number] Author: AMANDA ADAMS MD Service: ? 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 Would avoid a distal pancreatectomy/splenectomy at this time. - Do not think the pain he is having is from the pNET. I also do not think it is related to his gallbladder or stomach issues. It seems more muskuloskeletal. No general surgery intervention indicated. Would follow up with his PCP. CC: Abdominal pain INTERVAL HPI: The patient had a kyphoplasty at the end of April. He was recovering in the rehab hospital and fell and broke his hip. He had a partial hip replacement in May. He went back to there rehab hospital and was discharged on July 30. He is ambulating with a walker and doing well. He also developed COVID in the rehab hospital in April. He is having some pain in the top of his stomach. It comes and goes. He first noticed it about a year ago. When he sits it hurts. Eating does not exacerbate the pain. Laying down and walking relieves the pain. No fevers or chills. No nausea or vomiting. Having regular bowel movements. PHYSICAL EXAM: There were no vitals taken for this visit. Gen: NAD Pulm: Non-labored breathing Neuro: Answering questions appropriately, but slow to speak and deliberate This visit was conducted as a virtual visit. I have communicated my name and active licensure. The patient's identity and physical location were verified at the time of this visit. Either the patient or their legal bank representative has been informed of the risks and benefits of -- and alternatives to -- treatment through a remote evaluation and consents to proceed with the evaluation remotely. Medical Decision Making: Problems: Low: Stable chronic illness Data: Unique source(s) for external note(s) reviewed: 2 Unique test result(s) reviewed: 2 Unique test(s) ordered: 1 Medical Decision Making Level: 3 - Low Je Adams MD [facility] surgery Pager: [phone] [facility] 09-28-2023 Note Addended by: STEFF MUHAMMAD on: 09/28/2023 02:10 PM Modules accepted: Orders [facility] 09-28-2023 History of Present illness Narrative Images from the original note were not included. [facility] [address] [place] [address] [facility] [address] Dept: [phone] Dept Loc: [phone] Steff Muhammad MD CHIEF COMPLAINT: Chief Complaint Patient presents with Follow-up Loss of Consciousness Stroke HISTORY OF PRESENT ILLNESS: The pt returns for follow up. He had to have a hip replacement for a hip fracture he suffered after I last visited with him. He has been avoiding alcohol. He did stop the olanzapine and is no longer having the tremor that he had. He still has weakness from the stroke. He does have a stutter step when he starts walking. He has vision disturbance still. Past Medical History: has a past medical history of Cardiac arrest (HCC), Congestive heart failure (CHF) (HCC), Stroke (HCC), and Syncope. Past Surgical History: has a past surgical history that includes Cardiac surgery and Cardiac pacemaker placement. Medications: Current Outpatient Medications: Acetaminophen (TYLENOL PO), Take by mouth., Disp: , Rfl: amiodarone (Pacerone) 100 MG tablet, Take 200 mg by mouth in the morning., Disp: , Rfl: aspirin 81 MG EC tablet, Take 81 mg by mouth daily., Disp: , Rfl: atorvastatin (Lipitor) 40 MG tablet, , Disp: , Rfl: carvedilol (Coreg) 3.125 MG tablet, 2 times daily., Disp: , Rfl: DULoxetine (Cymbalta) [address] capsule, Take 60 mg by mouth daily. Do not crush or chew., Disp: , Rfl: ergocalciferol (Vitamin D2) 1.25 MG (46892 UT) capsule, Take by mouth once a week., Disp: , Rfl: finasteride (Proscar) 5 MG tablet, 5 mg in the morning., Disp: , Rfl: furosemide (Lasix) 20 MG tablet, Takes 2 tabs daily., Disp: , Rfl: levothyroxine (Synthroid, Levoxyl) 25 MCG tablet, , Disp: , Rfl: Linzess 145 MCG capsule, Take 145 mcg by mouth., Disp: , Rfl: losartan (Cozaar) 50 MG tablet, , Disp: , Rfl: metOLazone (Zaroxolyn) 2.5 MG tablet, Take by mouth., Disp: , Rfl: mirtazapine (Remeron) 30 MG tablet, , Disp: , Rfl: Myrbetriq 50 MG 24 hr tablet, Take 50 mg by mouth daily., Disp: , Rfl: nitroglycerin (Nitrostat) 0.4 MG SL tablet, Place 0.4 mg under the tongue every 5 minutes as needed for chest pain., Disp: , Rfl: omeprazole (PriLOSEC) [address] capsule, , Disp: , Rfl: oxybutynin XL (Ditropan-XL) 10 MG 24 hr tablet, Take 10 mg by mouth daily., Disp: , Rfl: potassium chloride CR (K-Tab) 20 MEQ ER tablet, , Disp: , Rfl: tamsulosin (Flomax) 0.4 MG 24 hr capsule, , Disp: , Rfl: traMADol (Ultram) 50 MG tablet, TAKE 1 TABLET BY MOUTH TWICE DAILY FOR 28 DAYS, Disp: , Rfl: amiodarone (Pacerone) 200 MG tablet, , Disp: , Rfl: ergocalciferol (Vitamin D-2) 1.25 MG (79855 UT) capsule, Take 1.25 mg by mouth 1 (one) time per week., Disp: , Rfl: losartan (Cozaar) 25 MG tablet, , Disp: , Rfl: OLANZapine (ZyPREXA) 2.5 MG tablet, , Disp: , Rfl: Allergies: Lisinopril Social History: Social History Socioeconomic History Marital status: Spouse name: Not on file Number of children: Not on file Years of education: Not on file Highest education level: Not on file Occupational History Not on file Tobacco Use Smoking status: Never Smokeless tobacco: Never Substance and Sexual Activity Alcohol use: Yes Drug use: Never Sexual activity: Not on file Other Topics Concern Not on file Social History Narrative Not on file Social Determinants of Health Financial Resource Strain: Not on file Food Insecurity: Not on file Transportation Needs: Not on file Physical Activity: Not on file Stress: Not on file Social Connections: Not on file Intimate Partner Violence: Not on file Housing Stability: Not on file Family History: Family History Problem Relation Name Age of Onset Breast cancer Mother Heart disease Mother Colon cancer Father Breast cancer Sister Rheum arthritis Sister No Known Problems Son No Known Problems Son REVIEW OF SYSTEMS: Review of Systems Constitutional: Negative for appetite change, chills, diaphoresis, fever and unexpected weight change. HENT: Negative for dental problem and mouth sores. Eyes: Negative for discharge and itching. Respiratory: Negative for chest tightness. Cardiovascular: Negative for chest pain and leg swelling. Gastrointestinal: Negative for rectal pain and vomiting. Endocrine: Negative for polydipsia, polyphagia and polyuria. Genitourinary: Negative for decreased urine volume, flank pain and genital sores. Musculoskeletal: Positive for back pain. Negative for arthralgias. Skin: Negative for color change. Allergic/Immunologic: Negative for food allergies and immunocompromised state. Neurological: Positive for tremors. Hematological: Negative for adenopathy. Does not bruise/bleed easily. Psychiatric/Behavioral: Negative for agitation, behavioral problems, decreased concentration, sleep disturbance and suicidal ideas. PHYSICAL EXAM: Vitals: BP 112/68 (BP Location: Left arm) Pulse 66 Wt 195 lb (88.5 kg) BMI 29.65 kg/m General Appearance: Patient is in no apparent distress. Head is normocephalic, atraumatic Cardiovascular: Regular rate and rhythm. No heart murmurs. No carotid bruit Neurologic: Mentation: Alert and oriented x 3 to person, place and time. Speech and Language: Speech is normal and language is mildly abnormal with word finding difficulty Concentration and Attention: Concentration abnormal Memory: Memory grossly same Fund of Knowledge: Fund of knowledge normal Cranial Nerves: II, III, IV, V, , VII, VIII, IX, X, XI, XII tested and were intact including fundoscopic exam (optic discs) and visual field to confrontation. Motor: Strength:Strength 5 out of 5 with normal tone Alternating Movements: Normal Cogwheel Rigidity: He is difficult to get relaxed, but once he is relaxed no cogwheeling Tone: Tone is normal Tremor / Involuntary Movements: No rest tremor. He has intention tremor. He has postural tremor that is equal bilaterally Deep Tendon Reflexes: 1 out of 4 symmetrical in all four limbs. Coordination: Normal coordination upper and lower extremities Gait and Station: Station is abnormal. Gait is mildly abnormal . He keeps his lower back lordotic. Normal arm swing. Smaller than usually steps but definitely not shuffling. Pivots and turns normally. DATA EEG Service Date/Time Result Status Perform Information Sign Information Authentication Information Technique 10-05-2017 16:54 Final JESSE RESENDIZ MD (10/05/2017 4:56:24 PM) JESSE RESENDIZ MD (10/05/2017 4:56:24 PM) JESSE RESENDIZ MD (10/05/2017 4:56:24 PM) Assessment/Plan The study is performed at the patient's bedside utilizing a multichannel digital EEG device utilizing the 1020 electrode system. The patient is noted to be receiving propofol and fentanyl. The background rhythm is low voltage 1-2 cps diffusely seen through the various scalp areas. At times in the intermediate to the latter stages of the recording there is a suggestion of a degree of burst suppression although this is of extremely low voltage and is consistent with the fact the patient is receiving propofol. Impression Evidence of profound cortical dysfunction. EEG demonstrates no evidence to suggest ictal activity. Propofol and fentanyl effect is observed as described 1. Non-STEMI (non-ST elevated myocardial infarction)S/P CABGX 5 09/28/17 2. Ventricular fibrillation arrest 10/02/2017 3. Acute blood loss anemia 4. Acute respiratory failure 5. Leukocytosis 6. Cardiac arrest 7. CAD (coronary artery disease) 8. Hypertension 9. Hyperlipemia 10. Acid reflux 11. Enlarged prostate 12. Trigeminal neuralgia 13. Back pain 14. Elevated LFTs 15. Metabolic encephalopathy 16. Ileus Orders: EEG Com MR MRA BRAIN OR NECK [facility] [address] [address] Patient: AMANDA KINNEY Phone#: : 1950 Age: 64 Gender: M Pt. Type: Out Account: [id number] Location: 010 Ordering: ANIYA LOTT Exam Date: 06/24/2015/10:00 Family Phys: AMANDA GUZMAN Charge Code: 219055 Physician: [place] Order #: [id number] DLP Dose#: PROCEDURE: MR ANGIOGRAPHY BRAIN WITHOUT CONTRAST COMPARISON: None. INDICATIONS: Syncope and collapse TECHNIQUE: MR angiography was performed without intravenous gadolinium contrast material. Multiplanar images of the cerebral arteries were created and interpreted. FINDINGS: INTERNAL CAROTIDS: No visible stenosis or aneurysm. ANTERIOR CEREBRALS: No visible stenosis or aneurysm. MIDDLE CEREBRALS: 8 mm focus of increased signal is present in the left M1 segment of the middle cerebral artery possibly at the base of the lateral lenticulostriate branch. The finding is suspicious for aneurysm. No other focal abnormality of the middle cerebral artery is identified. There is mild focal narrowing of the left posterior cerebral artery POSTERIOR CEREBRALS: There is tapered focal narrowing of the left posterior cerebral approximately 1.5 cm from its origin. BASILAR: No visible stenosis or aneurysm. VERTEBRALS: No visible stenosis or aneurysm. OTHER: Negative with no evidence of a vascular malformation. 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 There is a short segment probable tapered stenosis of the left posterior cerebral artery. This report was communicated by telephone to Dr. Aniya Lott at the dictation time shown below. Dictated by: Liya Mason MD on 06/25/2015 at 18:30 Continued Report - Page 2 of 2 Patient: AMANDA KINNEY Phone#: : 1950 Age: 64 Gender: M Pt. Type: Out Account: [id number] Location: 010 Ordering: ANIYA LOTT Exam Date: 06/24/2015/10:0 [facility] RADIOLOGY REPORT Patient name: MARY SCHNEIDER TranscrpIN: KLL Acct number: [id number] Age: 60 Sex: MFinancial Class: CB2 date: 1950 type: O/PMed Rec Num: [id number] Admit date: 03/05/11Room: X-ray number:[id number] Disch date: 03/05/11Phone: [phone] Location: Admit Phys: BAVMEL ROCKEOrder Num: [id number] Physician 2 : Ordering Phy: JB FAJARDO Family Phys: MR MRI BRAIN W/O CONTRAST [id number] COMPLETE:03/05/11 13:37 JLW [id number] (REASON FOR TEST: ANEURYSM OR TUMOR *corrections, additions and/or subtractions to the information c ontained in this report.* RADIOLOGY REPORT CLOSE Beverly SCHNEIDER 1 \CNTo\ MRI OF THE BRAIN Serial images were obtained in the sagittal and axial coronal planes without contrast. No abnormal foci of increased or diminished signal intensity are identified within the parenchyma. The ventricles are symmetric. There is no evidence of midline shift. There is no evidence of mass lesion in the cerebellopontine angles. The paranasal sinuses are well pneumatized. On diffusion imaging there is no evidence of acute ischemia. The mastoid air cells are well pneumatized. IMPRESSION: 1. Normal MRI of the brain. DD: 03.07.11 MR MRA BRAIN OR NECK WO [facility] RADIOLOGY REPORT Patient name: MARY SCHNEIDER TranscrpIN: BRISA Acct number: [id number] Age: 60 Sex: MFinancial Class: CB2 date: 1950 type: O/PMed Rec Num: [id number] Admit date: 03/05/11Room: X-ray number:[id number] Disch date: 03/05/11Phone: [phone] Location: Admit Phys: BAVMEL ROCKEOrder Num: [id number] Physician 2 : Ordering Phy: JB Dumont Phys: MR MRA BRAIN OR NECK WO CONTR [id number] COMPLETE:03/05/11 13:37 JLW [id number] (REASON FOR TEST: ANEURYSM OR TUMOR Unsigned transcriptions represent a preliminary report and do not reflect *corrections, additions and/or subtractions to the information c ontained in this report.* RADIOLOGY REPORT CLOSE Beverly SCHNEIDER 1 \CNTo\ MRA OF THE BRAIN Images were obtained in multiple phases without contrast. The carotid and basilar artery are normal in caliber. The [place] is unremarkable in configuration. The anterior cerebral, middle cerebral, and posterior cerebral vessels are symmetric. There is no evidence of aneurysmal dilatation. There is no evidence of vascular irregularity or cutoff. IMPRESSION: 1. Normal MRA of the brain. MRI BRAIN WO IVCON HISTORY: Clinical concern for an infarct. COMPARISON: CT brain 10/20/2017. TECHNIQUE: Routine MRI brain without intravenous contrast. RESULT: MR BRAIN: Acute Change: There is no evidence of restricted diffusion to suggest an acute infarct. Hemorrhage: Susceptibility changes are seen within the left frontal lobe anteriorly, left middle frontal gyrus dorsally and left precentral gyrus, left frontal operculum, right occipital pole, and the right cerebellar hemisphere posteriorly. Findings are consistent with remote parenchymal microhemorrhages/petechial hemorrhage within the remote infarcts. There is also curvilinear area of susceptibility within the left superior frontal sulcus dorsally on series 8 image 7 suggesting trace remote subarachnoid hemorrhage. Mass Effect / Mass Lesion: No evidence of an intracranial mass or extra-axial fluid collection. No significant mass effect. Chronic Change: There is T2/FLAIR hyperintensity with gyriform intrinsically high T1 signal within the left frontal operculum and left precentral gyrus, left temporal lobe laterally, right occipital pole, right cerebellar hemisphere dorsally, and to lesser degree within the left middle frontal gyrus dorsally suggesting cortical laminar necrosis secondary to remote infarcts. Left middle frontal gyrus infarct is subacute based on prior CT. Scattered patchy areas of increased T2 and FLAIR signal are present within white matter of both hemispheres, a nonspecific finding, but most likely represents chronic small vessel ischemic change. Parenchyma: There is moderate generalized parenchymal volume loss. The brain parenchyma is otherwise within normal limits of signal intensity and morphology. Ventricles: Ventriculomegaly corresponds to the degree of parenchymal volume loss. Skull Base: Hypothalamic and pituitary region are grossly normal. Craniocervical junction is normal. No significant marrow replacement process. Vasculature: Major intracranial arterial structures, and dural venous sinuses show typical flow void, suggesting patency by spin echo criteria. Other: There is retained fluid in mastoid air cells bilaterally. Mucosal thickening is seen within the left maxillary sinus and sphenoid sinus chambers. The orbits and extracranial soft tissues are unremarkable. Exam End: -- Specimen Collected: 11/03/17 13:43 [facility] Bedside Video EEG Monitoring Patient: Amanda Kinney - [id number] Date: 04 Nov 2017 Requested by: Ramesh Aleman History synopsis PT with h/o CABG on 09/28/17 at OSH presents with multiple cardiac arrests post-op. OSH CT brain demonstrated moderated global anoxic brain injury and EEG demonstrated profound cortical dysfunction. Transfer to [facility] for further management. BEM started on 10/08/17 at 0050. BEM D/C'd 10/09/17 at 1324. BEM reordered on 09/28/17 for worsening AMS. Classification Abnormal III (Stupor, 10-20 Scalp Electrodes, Anterior temporal electrodes) 1 Continuous Slow, Generalized Impression This bedside EEG was recorded from 11/04/17 at 1:53 until 4:43 and is suggestive of a moderate to severe diffuse encephalopathy. No epileptiform discharges or EEG seizures were recorded. Addendum This bedside EEG was recorded from 11/04 at 4:43 until 11/05 at 5:01 and is suggestive of a moderate to severe diffuse encephalopathy. No epileptiform discharges or EEG seizures were recorded. Interpreted and electronically signed by Arnulfo Lau M.D. at the date and time indicated below under Results. Resulting Agency NEUROLOGY Specimen Collected: 11/04/17 Last Resulted: 11/05/17 11:02 Received From: [facility] Result Received: 04/11/23 22:23 CBC: No results found for: WBC , RBC , HGB , HCT , MCV , MCH , MCHC , RDW , PLT , MPV CMP: No results found for: NA , K , CL , CO2 , BUN , CREATININE , AGRATIO , LABGLOM , GLUCOSE , GLU , PROT , CALCIUM , BILITOT , ALKPHOS , AST , ALT BMP: No results found for: NA , K , CL , CO2 , BUN , CREATININE , CALCIUM , LABGLOM , GLUCOSE , GLU PT/INR: No results found for: PROTIME , INR PTT: No results found for: APTT , PTT [APTT} FLP: No results found for: CHLPL , TRIG , HDL , LDLCALC , LDLDIRECT TSH: No results found for: TSH VITAMIN B12: No results found for: [id number] FERRITIN: No results found for: FERRITIN ---- No results found for: PHENYTOIN , PHENOBARB , VALPROATE , CBMZ No components found for: TOPIRA No results found for: OXCARBAZE , OXCARB @LASTAPPOINTMENTTHISPROV@ EEG extended more than 1 hour Steff Muhammad MD 04/19/2023 5:21 PM EEG REPORT Patient Name: Amanda Kinney : 1950 PROVIDER REQUESTING STUDY: Dr. Muhammad REASON FOR EXAM: syncope and collapse HISTORY: Amanda Kinney is a 72 y.o. with history of syncope and collapse MEDICATIONS: Current Outpatient Medications: amiodarone (Pacerone) 200 MG tablet, , Disp: , Rfl: aspirin 81 MG EC tablet, Take 81 mg by mouth daily., Disp: , Rfl: atorvastatin (Lipitor) 40 MG tablet, , Disp: , Rfl: DULoxetine (Cymbalta) [address] capsule, Take 60 mg by mouth daily. Do not crush or chew., Disp: , Rfl: ergocalciferol (Vitamin D-2) 1.25 MG (78390 UT) capsule, Take 1.25 mg by mouth 1 (one) time per week., Disp: , Rfl: furosemide (Lasix) 20 MG tablet, , Disp: , Rfl: levothyroxine (Synthroid, Levoxyl) 25 MCG tablet, , Disp: , Rfl: losartan (Cozaar) 25 MG tablet, , Disp: , Rfl: metOLazone (Zaroxolyn) 2.5 MG tablet, Take by mouth., Disp: , Rfl: mirtazapine (Remeron) 30 MG tablet, , Disp: , Rfl: nitroglycerin (Nitrostat) 0.4 MG SL tablet, Place 0.4 mg under the tongue every 5 minutes as needed for chest pain., Disp: , Rfl: OLANZapine (ZyPREXA) 2.5 MG tablet, , Disp: , Rfl: omeprazole (PriLOSEC) [address] capsule, , Disp: , Rfl: potassium chloride CR (K-Tab) 20 MEQ ER tablet, , Disp: , Rfl: TECHNICAL ASPECTS: This routine scalp EEG study with video was carried out. Scalp electrodes were positioned in person by an instrumentation technologist, following patient education, according to the 10-20 International system of electrode placement and maintained for integrity and quality of the recording. EEG data with video was recorded continuously and digitally stored. The instrumentation technologist reviewed all automated detections and manual events and prepared the data for archiving and provider review. Referential and bipolar montages were used for review. The recording lasted for over 63 minutes. TECHNOLOGIST NOTES: There was no history of skull defect. BACKGROUND ACTIVITY: Posterior background activity: A continuous organized and well-modulated 9 Hz rhythm was seen symmetrically over the posterior head regions bilaterally. Beta range: Fronto-centrally predominant beta range activity (15-25 Hz, 10-20 uV) was seen. Sleep: N2 sleep was reached as evidenced by the appearance of vertex waves and sleep spindles seen symmetrically over the central head regions bilaterally. Normal Variants: No normal variants were identified. SLOWING: No abnormal slowing was seen. INTERICTAL EPILEPTIFORM ACTIVITY: No epileptiform activity was seen. ICTAL ACTIVITY: No ictal activity was seen. NON-EPILEPTIC EVENTS: None. IMPRESSION: This is a normal awake and asleep EEG. @RESULTINGLABINFO@ No results found for: LEVETIRACETA , FERRITIN , CRP , RIANA , ANCA No results found for: GERARD , IMMUNOGLOBUL , OLIGOBANDS No results found for: [id number] , HEPCAB No results found for: CRP , ANATITER , ANCA ASSESSMENT AND PLAN: Diagnosis Plan 1. Cerebrovascular accident (CVA), unspecified mechanism (HCC) 2. Gait disturbance 3. Visual field loss following cerebrovascular accident External referral to Optometry He is stable and at this time no need to change regimen. 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 He does have issues as a result of strokes and his multiple other issues. Referral to Dr. Morin. 40 minutes documented in this encounter [facility] 09-28-2023 Miscellaneous Notes Addended by: STEFF MUHAMMAD on: 09/28/2023 02:10 PM Modules accepted: Orders documented in this encounter [facility] 09-28-2023 Note Addended by: STEFF MUHAMMAD on: 09/28/2023 02:10 PM Modules accepted: Orders [facility] 09-28-2023 Note Addended by: STEFF MUHAMMAD on: 09/28/2023 02:10 PM Modules accepted: Orders [facility] 09-16-2023 Note . MICRO - Microbiology PROCEDURE: Blood Culture (bacterial) [O1 *1] SOURCE: Blood BODY SITE: COLLECTED DATE/TIME: 09/11/2023 13:20 EST RECEIVED DATE/TIME: 09/11/2023 19:09 EST START DATE/TIME: 09/11/2023 19:10 EST FREE TEXT SOURCE: FINAL REPORTS Final Report [] Verified Date/Time/Personnel: 09/16/2023 19:59 EST Blood Culture: No Growth at 5 days. PRELIMINARY REPORTS Preliminary Report [] Verified Date/Time/Personnel: 09/11/2023 19:59 EST Culture has been received in lab and is no growth to date. Routine cultures are held for 5 days. Order Comments O1: Blood Culture (bacterial) fax [phone] Performing Locations *1: This test was performed at: [address], [facility] , [facility] ([place]) 08-31-2023 Note HNO ID: [id number] Author: Gaby Chris RT(R) Service: ? Author Type: Criminal Defense Lawyer Type: Progress Notes Filed: 08/31/2023 3:14 PM Note Text: Radiology Service Progress Note DATE OF SERVICE: August 31, 2023 TIME: 3:13 PM PATIENT IDENTITY VERIFICATION COMPLETED USING TWO (2) STANDARD IDENTIFIERS: Name and Date of confirmed by patient verbally. FALL SCREENING: Has the patient had 2 falls in the last year or 1 fall with injury or currently using an Ambulatory Assistive Device (Walker, Cane, Wheelchair, Crutches, etc.)? No PATIENT GENDER DATA: Male PATIENT RELEVANT IMPLANT DATA REVIEWED: Yes ALLERGIES: Reviewed and unchanged CONTRAST ALLERGY: NO. EXAM: CT -CONTRAST INDUCED NEPHROPATHY RISK FACTORS: Patient age > 60 years CREATININE: Creatinine Date Value Ref Range Status 08/31/2023 1.05 0.73 - 1.22 mg/dL Final 05/16/2021 1.16 0.73 - 1.22 mg/dL Final 05/15/2021 1.01 0.73 - 1.22 mg/dL Final Estimated Glomerular Filtration Rate Date Value Ref Range Status 08/31/2023 76 >=60 mL/min/1.73m? Final Comment: Estimated Glomerular Filtration Rate (eGFR) is calculated using the 2020 CKD-EPI creatinine equation. This equation utilizes serum creatinine, sex, and age as parameters. The creatinine assay has traceable calibration to isotope dilution-mass spectrometry. Refer to KDIGO guidelines for clinical interpretation. In patients with unstable renal function, e.g. those with acute kidney injury, the eGFR may not accurately reflect actual GFR. eGFR- Date Value Ref Range Status 05/16/2021 >60 Final P.O.C.T. RESULTS: POC done: Yes, See Lab Tab August 31, 2023 TREATMENT: N/A PERIPHERAL IV DATA: Ambulatory: A peripheral IV was started in the Right antecubital site with a Angio cath: 20 gauge. RADIOLOGY DEPARTMENT: CT; Exam(s) Completed: Pancreas SIGNATURE: RT Demetrius(R) PATIENT NAME: Amanda Kinney DATE: August 31, 2023 TIME: 3:13 PM [facility] 08-31-2023 History of Present illness Narrative Radiology Service Progress Note DATE OF SERVICE: August 31, 2023 TIME: 3:13 PM PATIENT IDENTITY VERIFICATION COMPLETED USING TWO (2) STANDARD IDENTIFIERS: Name and Date of confirmed by patient verbally. FALL SCREENING: Has the patient had 2 falls in the last year or 1 fall with injury or currently using an Ambulatory Assistive Device (Walker, Cane, Wheelchair, Crutches, etc.)? No PATIENT GENDER DATA: Male PATIENT RELEVANT IMPLANT DATA REVIEWED: Yes ALLERGIES: Reviewed and unchanged CONTRAST ALLERGY: NO. EXAM: CT -CONTRAST INDUCED NEPHROPATHY RISK FACTORS: Patient age > 60 years CREATININE: Creatinine Date Value Ref Range Status 08/31/2023 1.05 0.73 - 1.22 mg/dL Final 05/16/2021 1.16 0.73 - 1.22 mg/dL Final 05/15/2021 1.01 0.73 - 1.22 mg/dL Final Estimated Glomerular Filtration Rate Date Value Ref Range Status 08/31/2023 76 >=60 mL/min/1.73m Final Comment: Estimated Glomerular Filtration Rate (eGFR) is calculated using the 2020 CKD-EPI creatinine equation. This equation utilizes serum creatinine, sex, and age as parameters. The creatinine assay has traceable calibration to isotope dilution-mass spectrometry. Refer to KDIGO guidelines for clinical interpretation. In patients with unstable renal function, e.g. those with acute kidney injury, the eGFR may not accurately reflect actual GFR. eGFR- Date Value Ref Range Status 05/16/2021 >60 Final P.O.C.T. RESULTS: POC done: Yes, See Lab Tab August 31, 2023 TREATMENT: N/A PERIPHERAL IV DATA: Ambulatory: A peripheral IV was started in the Right antecubital site with a Angio cath: 20 gauge. RADIOLOGY DEPARTMENT: CT; Exam(s) Completed: Pancreas SIGNATURE: RT Demetrius(R) PATIENT NAME: Amanda Kinney DATE: August 31, 2023 TIME: 3:13 PM documented in this encounter [facility] 08-29-[address] order for stat creatinine order for pt , pt appt 08/31/[address] I will call pt when it is placed documented in this encounter [facility] 06-20-2023 History of Present illness Narrative Images from the original note were not included. [facility] [address] [place] [address] [facility] [address] Dept: [phone] Dept Loc: [phone] Steff Muhammad MD Patient was seen today via Telehealth by agreement and consent. I used the following Telehealth technology: Audio and video capabilities. Patient location: Patient Location: Inpatient hospital. This patient encounter is appropriate and reasonable under the circumstances: too sick to leave home . The patient has been advised of the potential risks and limitations of this mode of treatment (including but not limited to the absence of in-person examination) and has agreed to be treated in a remote fashion in spite of them. Any and all of the patient's/patient's family's questions on this issue have been answered and I have made no promises or guarantees to the patient. The patient has also been advised to contact this office for worsening conditions or problems, and seek emergency medical treatment and/or call 911 if the patient deems either necessary. The patient stated that they are currently in the state [facility]. If the patient is a minor, permission has been obtained by the parent or guardian for the patient to receive medical care at this visit. CHIEF COMPLAINT: Chief Complaint Patient presents with Follow-up Loss of Consciousness Results HISTORY OF PRESENT ILLNESS: He is video calling into the visit from the hospital. He had surgery on his lower back. He lost strength in his legs. He went into the hospital and came down with COVID. He had a fall in the hospital and broke his hip. He has not had anymore passing out events. His reports that in retrospect, he was drinking a lot of beer and has cut back. He has been taken off of the olanzapine. His reports that she thinks the tremors are better, but definitely not gone. Past Medical History: has a past medical history of Cardiac arrest (HCC), Congestive heart failure (CHF) (CMS/HCC) (HCC), Stroke (HCC), and Syncope. Past Surgical History: has a past surgical history that includes Cardiac surgery and Cardiac pacemaker placement. Medications: Current Outpatient Medications: amiodarone (Pacerone) 200 MG tablet, , Disp: , Rfl: aspirin 81 MG EC tablet, Take 81 mg by mouth daily., Disp: , Rfl: atorvastatin (Lipitor) 40 MG tablet, , Disp: , Rfl: DULoxetine (Cymbalta) [address] capsule, Take 60 mg by mouth daily. Do not crush or chew., Disp: , Rfl: ergocalciferol (Vitamin D-2) 1.25 MG (88777 UT) capsule, Take 1.25 mg by mouth 1 (one) time per week., Disp: , Rfl: furosemide (Lasix) 20 MG tablet, Takes 2 tabs daily., Disp: , Rfl: levothyroxine (Synthroid, Levoxyl) 25 MCG tablet, , Disp: , Rfl: losartan (Cozaar) 25 MG tablet, , Disp: , Rfl: metOLazone (Zaroxolyn) 2.5 MG tablet, Take by mouth., Disp: , Rfl: mirtazapine (Remeron) 30 MG tablet, , Disp: , Rfl: Myrbetriq 50 MG 24 hr tablet, Take 50 mg by mouth daily., Disp: , Rfl: nitroglycerin (Nitrostat) 0.4 MG SL tablet, Place 0.4 mg under the tongue every 5 minutes as needed for chest pain., Disp: , Rfl: OLANZapine (ZyPREXA) 2.5 MG tablet, , Disp: , Rfl: omeprazole (PriLOSEC) [address] capsule, , Disp: , Rfl: potassium chloride CR (K-Tab) 20 MEQ ER tablet, , Disp: , Rfl: Allergies: Lisinopril Social History: Social History Socioeconomic History Marital status: Spouse name: Not on file Number of children: Not on file Years of education: Not on file Highest education level: Not on file Occupational History Not on file Tobacco Use Smoking status: Never Smokeless tobacco: Never Substance and Sexual Activity Alcohol use: Yes Drug use: Never Sexual activity: Not on file Other Topics Concern Not on file Social History Narrative Not on file Social Determinants of Health Financial Resource Strain: Not on file Food Insecurity: Not on file Transportation Needs: Not on file Physical Activity: Not on file Stress: Not on file Social Connections: Not on file Intimate Partner Violence: Not on file Housing Stability: Not on file Family History: Family History Problem Relation Name Age of Onset Breast cancer Mother Heart disease Mother Colon cancer Father Breast cancer Sister Rheum arthritis Sister No Known Problems Son No Known Problems Son REVIEW OF SYSTEMS: Review of Systems Constitutional: Negative for appetite change, chills, diaphoresis, fever and unexpected weight change. HENT: Negative for dental problem and mouth sores. Eyes: Negative for discharge and itching. Respiratory: Negative for chest tightness. Cardiovascular: Negative for chest pain and leg swelling. Gastrointestinal: Negative for rectal pain and vomiting. Endocrine: Negative for polydipsia, polyphagia and polyuria. Genitourinary: Negative for decreased urine volume, flank pain and genital sores. Musculoskeletal: Positive for back pain. Negative for arthralgias. Skin: Negative for color change. Allergic/Immunologic: Negative for food allergies and immunocompromised state. Neurological: Positive for tremors. Hematological: Negative for adenopathy. Does not bruise/bleed easily. Psychiatric/Behavioral: Negative for agitation, behavioral problems, decreased concentration, sleep disturbance and suicidal ideas. PHYSICAL EXAM: Vitals: There were no vitals taken for this visit. General Appearance: Patient is in no apparent distress. Head is normocephalic, atraumatic Cardiovascular: Regular rate and rhythm. No heart murmurs. No carotid bruit Neurologic: Mentation: Alert and oriented to person Speech and Language: Speech is normal and language is mildly abnormal with word finding difficulty Concentration and Attention: Concentration mildly abnormal Memory: Memory same as prior exam Coor: No postural or kinetic tremor DATA EEG Service Date/Time Result Status Perform Information Sign Information Authentication Information Technique 10-05-2017 16:54 Final JESSE RESENDIZ MD (10/05/2017 4:56:24 PM) JESSE RESENDIZ MD (10/05/2017 4:56:24 PM) JESSE RESENDIZ MD (10/05/2017 4:56:24 PM) Assessment/Plan The study is performed at the patient's bedside utilizing a multichannel digital EEG device utilizing the 1020 electrode system. The patient is noted to be receiving propofol and fentanyl. The background rhythm is low voltage 1-2 cps diffusely seen through the various scalp areas. At times in the intermediate to the latter stages of the recording there is a suggestion of a degree of burst suppression although this is of extremely low voltage and is consistent with the fact the patient is receiving propofol. Impression Evidence of profound cortical dysfunction. EEG demonstrates no evidence to suggest ictal activity. Propofol and fentanyl effect is observed as described 1. Non-STEMI (non-ST elevated myocardial infarction)S/P CABGX 5 09/28/17 2. Ventricular fibrillation arrest 10/02/2017 3. Acute blood loss anemia 4. Acute respiratory failure 5. Leukocytosis 6. Cardiac arrest 7. CAD (coronary artery disease) 8. Hypertension 9. Hyperlipemia 10. Acid reflux 11. Enlarged prostate 12. Trigeminal neuralgia 13. Back pain 14. Elevated LFTs 15. Metabolic encephalopathy 16. Ileus Orders: EEG Com MR MRA BRAIN OR NECK [address] [address] Patient: MARYAMANDARebecca Phone#: : 1950 Age: 64 Gender: M Pt. Type: Out Account: [id number] Location: 010 Ordering: ANIYA KAYLIE Exam Date: 06/24/2015/10:00 Family Phys: AMANDA GUZMAN Charge Code: [id number] Physician: [place] Order #: [id number] DLP Dose#: PROCEDURE: MR ANGIOGRAPHY BRAIN WITHOUT CONTRAST COMPARISON: None. INDICATIONS: Syncope and collapse TECHNIQUE: MR angiography was performed without intravenous gadolinium contrast material. Multiplanar images of the cerebral arteries were created and interpreted. FINDINGS: INTERNAL CAROTIDS: No visible stenosis or aneurysm. ANTERIOR CEREBRALS: No visible stenosis or aneurysm. MIDDLE CEREBRALS: 8 mm focus of increased signal is present in the left M1 segment of the middle cerebral artery possibly at the base of the lateral lenticulostriate branch. The finding is suspicious for aneurysm. No other focal abnormality of the middle cerebral artery is identified. There is mild focal narrowing of the left posterior cerebral artery POSTERIOR CEREBRALS: There is tapered focal narrowing of the left posterior cerebral approximately 1.5 cm from its origin. BASILAR: No visible stenosis or aneurysm. VERTEBRALS: No visible stenosis or aneurysm. OTHER: Negative with no evidence of a vascular malformation. 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 There is a short segment probable tapered stenosis of the left posterior cerebral artery. This report was communicated by telephone to Dr. Aniya Lott at the dictation time shown below. Dictated by: Liya Mason MD on 06/25/2015 at 18:30 Continued Report - Page 2 of 2 Patient: AMANDA KINNEY Phone#: : 1950 Age: 64 Gender: M Pt. Type: Out Account: [id number] Location: 010 Ordering: RAHATMONTY KAYLIE Exam Date: 06/24/2015/10:0 [facility] RADIOLOGY REPORT Patient name: MARY SCHNEIDER TranscrpIN: BRISA Acct number: [id number] Age: 60 Sex: MFinancial Class: CB2 date: 1950Stay type: O/PMed Rec Num: [id number] Admit date: 03/05/11Room: X-ray number:[id number] Disch date: 03/05/11Phone: [phone] Location: Admit Phys: JB FAJARDOOrder Num: [id number] Physician 2 : Ordering Phy: JB Dumont Phys: MR MRI BRAIN W/O CONTRAST [id number] COMPLETE:03/05/11 13:37 [facility] [id number] (REASON FOR TEST: ANEURYSM OR TUMOR *corrections, additions and/or subtractions to the information c ontained in this report.* RADIOLOGY REPORT CLOSE Beverly HARPERNT 1 \CNTo\ MRI OF THE BRAIN Serial images were obtained in the sagittal and axial coronal planes without contrast. No abnormal foci of increased or diminished signal intensity are identified within the parenchyma. The ventricles are symmetric. There is no evidence of midline shift. There is no evidence of mass lesion in the cerebellopontine angles. The paranasal sinuses are well pneumatized. On diffusion imaging there is no evidence of acute ischemia. The mastoid air cells are well pneumatized. IMPRESSION: 1. Normal MRI of the brain. DD: 03.07.11 MR MRA BRAIN OR NECK WO [facility] RADIOLOGY REPORT Patient name: MARY SCHNEIDER TranscrpIN: BRISA Acct number: [id number] Age: 60 Sex: MFinancial Class: CB2 date: 1950Stay type: O/PMed Rec Num: [id number] Admit date: 03/05/11Room: X-ray number:[id number] Disch date: 03/05/11Phone: [phone] Location: Admit Phys: JB FAJARDOOrder Num: [id number] Physician 2 : Ordering Phy: JB Dumont Phys: MR MRA BRAIN OR NECK WO CONTR [id number] COMPLETE:03/05/11 13:37 [facility] [id number] (REASON FOR TEST: ANEURYSM OR TUMOR Unsigned transcriptions represent a preliminary report and do not reflect *corrections, additions and/or subtractions to the information c ontained in this report.* RADIOLOGY REPORT CLOSE Beverly HARPERNT 1 \CNTo\ MRA OF THE BRAIN Images were obtained in multiple phases without contrast. The carotid and basilar artery are normal in caliber. The [place] is unremarkable in configuration. The anterior cerebral, middle cerebral, and posterior cerebral vessels are symmetric. There is no evidence of aneurysmal dilatation. There is no evidence of vascular irregularity or cutoff. IMPRESSION: 1. Normal MRA of the brain. MRI BRAIN WO IVCON HISTORY: Clinical concern for an infarct. COMPARISON: CT brain 10/20/2017. TECHNIQUE: Routine MRI brain without intravenous contrast. RESULT: MR BRAIN: Acute Change: There is no evidence of restricted diffusion to suggest an acute infarct. Hemorrhage: Susceptibility changes are seen within the left frontal lobe anteriorly, left middle frontal gyrus dorsally and left precentral gyrus, left frontal operculum, right occipital pole, and the right cerebellar hemisphere posteriorly. Findings are consistent with remote parenchymal microhemorrhages/petechial hemorrhage within the remote infarcts. There is also curvilinear area of susceptibility within the left superior frontal sulcus dorsally on series 8 image 7 suggesting trace remote subarachnoid hemorrhage. Mass Effect / Mass Lesion: No evidence of an intracranial mass or extra-axial fluid collection. No significant mass effect. Chronic Change: There is T2/FLAIR hyperintensity with gyriform intrinsically high T1 signal within the left frontal operculum and left precentral gyrus, left temporal lobe laterally, right occipital pole, right cerebellar hemisphere dorsally, and to lesser degree within the left middle frontal gyrus dorsally suggesting cortical laminar necrosis secondary to remote infarcts. Left middle frontal gyrus infarct is subacute based on prior CT. Scattered patchy areas of increased T2 and FLAIR signal are present within white matter of both hemispheres, a nonspecific finding, but most likely represents chronic small vessel ischemic change. Parenchyma: There is moderate generalized parenchymal volume loss. The brain parenchyma is otherwise within normal limits of signal intensity and morphology. Ventricles: Ventriculomegaly corresponds to the degree of parenchymal volume loss. Skull Base: Hypothalamic and pituitary region are grossly normal. Craniocervical junction is normal. No significant marrow replacement process. Vasculature: Major intracranial arterial structures, and dural venous sinuses show typical flow void, suggesting patency by spin echo criteria. Other: There is retained fluid in mastoid air cells bilaterally. Mucosal thickening is seen within the left maxillary sinus and sphenoid sinus chambers. The orbits and extracranial soft tissues are unremarkable. Exam End: -- Specimen Collected: 11/03/17 13:43 [facility] Bedside Video EEG Monitoring Patient: Amanda Kinney - [id number] Date: 04 Nov 2017 Requested by: Ramesh Aleman History synopsis PT with h/o CABG on 09/28/17 at OSH presents with multiple cardiac arrests post-op. OSH CT brain demonstrated moderated global anoxic brain injury and EEG demonstrated profound cortical dysfunction. Transfer to [facility] for further management. BEM started on 10/08/17 at 0050. BEM D/C'd 10/09/17 at 1324. BEM reordered on 09/28/17 for worsening AMS. Classification Abnormal III (Stupor, 10-20 Scalp Electrodes, Anterior temporal electrodes) 1 Continuous Slow, Generalized Impression This bedside EEG was recorded from 11/04/17 at 1:53 until 4:43 and is suggestive of a moderate to severe diffuse encephalopathy. No epileptiform discharges or EEG seizures were recorded. Addendum This bedside EEG was recorded from 11/04 at 4:43 until 11/05 at 5:01 and is suggestive of a moderate to severe diffuse encephalopathy. No epileptiform discharges or EEG seizures were recorded. Interpreted and electronically signed by Arnulfo Lau M.D. at the date and time indicated below under Results. Resulting Agency NEUROLOGY Specimen Collected: 11/04/17 Last Resulted: 11/05/17 11:02 Received From: [facility] Result Received: 04/11/23 22:23 CBC: No results found for: WBC , RBC , HGB , HCT , MCV , MCH , MCHC , RDW , PLT , MPV CMP: No results found for: NA , K , CL , CO2 , BUN , CREATININE , AGRATIO , LABGLOM , GLUCOSE , GLU , PROT , CALCIUM , BILITOT , ALKPHOS , AST , ALT BMP: No results found for: NA , K , CL , CO2 , BUN , CREATININE , CALCIUM , LABGLOM , GLUCOSE , GLU PT/INR: No results found for: PROTIME , INR PTT: No results found for: APTT , PTT [APTT} FLP: No results found for: CHLPL , TRIG , HDL , LDLCALC , LDLDIRECT TSH: No results found for: TSH VITAMIN B12: No results found for: [id number] FERRITIN: No results found for: FERRITIN ---- No results found for: PHENYTOIN , PHENOBARB , VALPROATE , CBMZ No components found for: TOPIRA No results found for: OXCARBAZE , OXCARB @LASTAPPOINTMENTTHISPROV@ EEG extended more than 1 hour Steff Muhammad MD 04/19/2023 5:21 PM EEG REPORT Patient Name: Amanda Kinney : 1950 PROVIDER REQUESTING STUDY: Dr. Muhammad REASON FOR EXAM: syncope and collapse HISTORY: Amanda Kinney is a 72 y.o. with history of syncope and collapse MEDICATIONS: Current Outpatient Medications: amiodarone (Pacerone) 200 MG tablet, , Disp: , Rfl: aspirin 81 MG EC tablet, Take 81 mg by mouth daily., Disp: , Rfl: atorvastatin (Lipitor) 40 MG tablet, , Disp: , Rfl: DULoxetine (Cymbalta) [address] capsule, Take 60 mg by mouth daily. Do not crush or chew., Disp: , Rfl: ergocalciferol (Vitamin D-2) 1.25 MG (15308 UT) capsule, Take 1.25 mg by mouth 1 (one) time per week., Disp: , Rfl: furosemide (Lasix) 20 MG tablet, , Disp: , Rfl: levothyroxine (Synthroid, Levoxyl) 25 MCG tablet, , Disp: , Rfl: losartan (Cozaar) 25 MG tablet, , Disp: , Rfl: metOLazone (Zaroxolyn) 2.5 MG tablet, Take by mouth., Disp: , Rfl: mirtazapine (Remeron) 30 MG tablet, , Disp: , Rfl: nitroglycerin (Nitrostat) 0.4 MG SL tablet, Place 0.4 mg under the tongue every 5 minutes as needed for chest pain., Disp: , Rfl: OLANZapine (ZyPREXA) 2.5 MG tablet, , Disp: , Rfl: omeprazole (PriLOSEC) [address] capsule, , Disp: , Rfl: potassium chloride CR (K-Tab) 20 MEQ ER tablet, , Disp: , Rfl: TECHNICAL ASPECTS: This routine scalp EEG study with video was carried out. Scalp electrodes were positioned in person by an instrumentation technologist, following patient education, according to the 10-20 International system of electrode placement and maintained for integrity and quality of the recording. EEG data with video was recorded continuously and digitally stored. The instrumentation technologist reviewed all automated detections and manual events and prepared the data for archiving and provider review. Referential and bipolar montages were used for review. The recording lasted for over 63 minutes. TECHNOLOGIST NOTES: There was no history of skull defect. BACKGROUND ACTIVITY: Posterior background activity: A continuous organized and well-modulated 9 Hz rhythm was seen symmetrically over the posterior head regions bilaterally. Beta range: Fronto-centrally predominant beta range activity (15-25 Hz, 10-20 uV) was seen. Sleep: N2 sleep was reached as evidenced by the appearance of vertex waves and sleep spindles seen symmetrically over the central head regions bilaterally. Normal Variants: No normal variants were identified. SLOWING: No abnormal slowing was seen. INTERICTAL EPILEPTIFORM ACTIVITY: No epileptiform activity was seen. ICTAL ACTIVITY: No ictal activity was seen. NON-EPILEPTIC EVENTS: None. IMPRESSION: This is a normal awake and asleep EEG. @RESULTINGLABINFO@ No results found for: LEVETIRACETA , FERRITIN , CRP , RIANA , ANCA No results found for: GERARD , IMMUNOGLOBUL , OLIGOBANDS No results found for: [id number] , HEPCAB No results found for: CRP , ANATITER , ANCA MRI at [facility] in April per report: Chronic small vessel ischemic/degenerative changes Cerebral and cerebellar atrophy Small orld right cerellar hemisphere infarct Old left postirior fronal opercular infarct Small old bilateral occipital infarcts. ASSESSMENT AND PLAN: Diagnosis Plan 1. Syncope and collapse 2. Parkinsonism, unspecified Parkinsonism type 3. Cerebrovascular accident (CVA), unspecified mechanism (HCC) Vasovagal syncope, not epilepsy. Without being able to examine him it is not clear, but I would be ok with trying Sinemet 25/100 BID if there is resting tremor on real exams. Hold Olanzapine. He is reported to have a new stroke in the left occiput not reported on prior reports. I do not have access to his images. Aspirin daily for now except for when he needs orthopedic surgery. I spent 30 minutes caring for this patient today, reviewing labs and records, seeing the patient, documenting in the record and arranging for studies. documented in this encounter [facility] 05-25-2023 Note Office received [facility] records request via fax from [facility]. Please see patient's chart. H&P, EEG report and Last progress note faxed today to [facility] to fax number- [phone]. [facility] 04-21-2023 Note HNO ID: [id number] Author: Magi Quintero Service: ? Author Type: ? Type: Progress Notes Filed: 04/21/2023 10:15 AM Note Text: [facility] - OUTPATIENT CLINIC NOTE PATIENT NAME: Amanda Kinney DATE of SERVICE: April 21, 2023 TIME of SERVICE: 8:38 AM PCP: Kaylin Hui Mr. 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 PMHx includes [place] s/p CABG, CAD, CHF, HTN, HLD and CVA. The pancreatic neuroendocrine tumor was incidentally discovered on a CT in 2013. EUS on 03/23/16 revealed a 15 x 11 mm mass in the pancreatic tail that interfaced with the SMA, celiac trunk, hepatic artery, splenic artery, gastroduodenal artery, L gastric artery, aorta portal vein, SMV, splenic vein, splenoportal confluence and IVC. Biopsy confirmed a diagnosis of low-grade neuroendocrine tumor. Patient was seen as an outpatient at [facility] on 05/03/17 for this neuroendocrine tumor, at which time the recommendations were MRCP and follow-up in 6 months with imaging. The patient was subsequently lost to follow-up, and we have no records of an MRCP. 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 CT was ordered in the ED, which demonstrated nondisplaced R 7th and 8th rib fractures, L1 compression deformity, cholelithiasis, and a 15 x 22 mm pancreatic tail mass. Patient was discharged home and has had ongoing R-sided rib and back pain. He denies abdominal pain, nausea, vomiting, diarrhea, constipation, weight loss, fevers, malaise, and steatorrhea. Patient reports decreased appetite for the past 2 weeks. He is currently drinking 8-10 beers per day, former smoker (quit 10 years ago), denies recreational drugs. Denies family history of pancreatitis or pancreatic cancer. CT 12/28/15: 1.5 x 1.1 cm enhancing nodule in tail of pancreas, slightly larger than prior MRI 09/20/16: stable 1.2 cm enhancing pancreatic tail lesion consistent with biopsy proven neuroendocrine tumor, no metastatic disease in the abdomen MRI 05/15/17: stable enhancing 1.4 cm pancreatic tail mass consistent with the known neuroendocrine tumor, no metastases in the abdomen CT 03/18/23: nondisplaced R 7th and 8th rib fractures, L1 compression deformity, 15 x 22 mm mass in the pancreatic tail, cholelithiasis PAST MEDICAL HISTORY: PAST MEDICAL HISTORY Diagnosis Date Back pain CAD (coronary artery disease) CVA (cerebral vascular accident) (HCC) 2018 Heart disease High cholesterol HTN (hypertension) [place], old 2013 no surgery, no stents PAST SURGICAL HISTORY: PAST SURGICAL HISTORY Procedure Laterality Date ANESTH,PACEMAKER INSERTION with AICD CABG (5) VENOUS GRAFTS AND ARTERIAL GRAFT(S) 09/2017 EPS: SVT ABLATION 10/2017 x2 FEEDING TUBE-SPECIFY 2017 now removed HEART CATHETERIZATION 2013 PAST SURGICAL HISTORY OF 09/2002 Hemorrhoidectomy TRACHEOSTOMY HX 2018 FAMILY HISTORY: FAMILY HISTORY Problem Relation Age of Onset Breast Cancer Mother other (Heart Disease) Mother Colon Cancer Father Thyroid Sister Hypothyroidism Breast Cancer Sister SOCIAL HISTORY: Social History Tobacco Use Smoking status: Former Types: Cigarettes Quit date: 05/03/2007 Years since quittin.9 Smokeless tobacco: Never Tobacco comments: social smoker. Vaping Use Vaping Use: Never used Substance Use Topics Alcohol use: Yes Alcohol/week: 60.0 standard drinks of alcohol Types: 24 Cans of Beer (12oz) per week Drug use: No REVIEW OF SYSTEMS PAIN ASSESSMENT: pain in ribs and back GENERAL: No weight loss, malaise or fevers RESPIRATORY: positive for dyspnea at baseline (no recent deviations from baseline), denies coughing or wheezing CARDIOVASCULAR: negative for chest pain or palpitations GI: No nausea, vomiting, or diarrhea OBJECTIVE BP 157/76 Pulse (!) 8 Temp 36.6 ?C (97.9 ?F) (Temporal) Ht 172.7 cm (5' 8 ) Wt 95.3 kg (210 lb) BMI 31.93 kg/m? 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 PMHx is remarkable for [place] s/p CABG, CAD, CHF, HTN, HLD and CVA. Patient's pancreatic mass was incidentally identified on imaging in 2013, and biopsy was consistent with a neuroendocrine tumor. The mass remained stable in size during subsequent surveillance imaging in 2015 and 2016. The patient fell in February 2023, prompting a CT that revealed an interval increase in size of the pancreatic mass to 15 x 22 mm. Patient has remained asymptomatic. The results of the patient's most recent imaging were discussed, and surgical resection via a distal pancreatectomy was recommended due to the increase in size of the neuroend (more content not included)... [facility] 04-21-2023 History and physical note INITIAL PANCREATIC CANCER PATIENT NAME: Amanda Kinney DATE of SERVICE: 04/21/2023 TIME of SERVICE: 10:05 AM PCP: Kaylin Hui This consult was requested by No ref. provider found for evaluation of pancreatic cyst(s) My final recommendations will be communicated to the requesting health care provider by way of the shared medical record or postal services. HPI: Mr. Kinney is a 72 year old male who presents for a pancreatic neuroendocrine tumor, non-functional. The pNET was initially found in 2013 and it measured 1.2cm at that time. It was found incidentally on a chest CT. The last imaging we have is from 2016 when it measured 1.5cm. He got lost to follow up because of other comorbidities. He had a CVA in 2018 from an arrest and underwent a CABG at that time. He had dysphagia and a PEG tube was placed that was subsequently removed. He has recovered, but does have some residual speech deficits. He is able to walk, but requires a wheelchair for long distances. Recently he was out mowing his lawn and fell off of his lawn-mower and broke some ribs. In the ER he had a CT scan that showed his known pNET to be 2.1cm. The patient does not currently have any abdominal pain, nausea, vomiting, fevers, chills, chest pain, shortness of breath. His rib fractures seemed to have healed well. Of note, the patient does drink about 6-8 beers per day. Incidental- Yes WORKUP: CT Yes 2022 mass size 21 x 21 mm location tail vessel involvement no Contiguous Organ Involvement: No Lymph node No Liver Lesions: No Location n/a Metastases No ascites No venous thrombosis No Pathology/Cytology: pancreas neuroendocrine tumor PAST MEDICAL HISTORY PAST MEDICAL HISTORY Diagnosis Date Back pain CAD (coronary artery disease) CVA (cerebral vascular accident) (HCC) 2018 Heart disease High cholesterol HTN (hypertension) [place], old 2013 no surgery, no stents PAST SURGICAL HISTORY PAST SURGICAL HISTORY Procedure Laterality Date ANESTH,PACEMAKER INSERTION with AICD CABG (5) VENOUS GRAFTS & ARTERIAL GRAFT(S) 09/2017 EPS: SVT ABLATION 10/2017 x2 FEEDING TUBE-SPECIFY 2018 now removed HEART CATHETERIZATION 2013 PAST SURGICAL HISTORY OF 09/2002 Hemorrhoidectomy TRACHEOSTOMY HX 2018 FAMILY HISTORY FAMILY HISTORY Problem Relation Age of Onset Breast Cancer Mother other (Heart Disease) Mother Colon Cancer Father Thyroid Sister Hypothyroidism Breast Cancer Sister Pancreatic Cancer- No Colon Cancer- No Breast Cancer- No Pancreatitis- No SOCIAL HISTORY Social History Tobacco Use Smoking status: Former Types: Cigarettes Quit date: 05/03/2007 Years since quittin.9 Smokeless tobacco: Never Tobacco comments: social smoker. Vaping Use Vaping Use: Never used Substance Use Topics Alcohol use: Yes Alcohol/week: 60.0 standard drinks of alcohol Types: 24 Cans of Beer (12oz) per week Drug use: No REVIEW OF SYSTEMS GENERAL: No weight loss, malaise or fevers RESPIRATORY: Negative for cough, hemoptysis, wheezing, COPD, dyspnea or shortness of breath CARDIOVASCULAR: Negative for chest pain, leg swelling, hypertension, CHF or palpitations GI: No nausea, vomiting, or diarrhea PHYSICAL EXAM: General Appearance: NAD. Skin: No jaundice. Lungs: Non-labored breathing. Abdomen: S, NT, ND. Neurologic: Answering questions appropriately. LABS No results found for: CEA No results found for: CA199 Amylase (U/L) Date Value 10/21/2017 52 Lipase (U/L) Date Value 10/21/2017 53 No results found for: PREALB No results found for: CRP No results found for: TRANSF No results found for: BILIT ALT (U/L) Date Value 05/10/2021 18 11/17/2017 20 11/16/2017 21 AST (U/L) Date Value 05/10/2021 18 11/17/2017 14 11/16/2017 14 No components found for: LB Alkaline Phosphatase (U/L) Date Value 05/10/2021 82 11/17/2017 88 11/16/2017 78 Hemoglobin A1C (%) Date Value 11/03/2017 4.7 PANCREATIC POLYPEPTIDE: Not Done GASTRIN: Not Done IGG4 Not Done Assessment ASSESSMENT: 72 year old male presents with non-functional pNET. PLAN: - I explained that the recommendation for pNETs >2cm is to resect them due to the risk of malignancy. His has grown slowly over the past 9 years. I expalined the surgery in detail, including the risks of the operation. We discussed the risks, including, but not limited to, infection, bleeding, and damage to surrounding structures. We discussed the risk of pancreatic fistula. The patient and his are hesitant to undergo surgery now due to his other comorbidities and so we discussed repeating imaging in about 6 months and then reassess at that time. Medical Decision Making: Problems: Moderate: 1+ chronic illnesses with change Data: Unique source(s) for external note(s) reviewed: 3+ Unique test result(s) reviewed: 3+ Unique test(s) ordered: 1 Risk: High: High risk from testing/treatment Medical Decision Making Level: 4 - Moderate SIGNATURE: Amanda Adams MD documented in this encounter [facility] 04-21-2023 History of Present illness Narrative [facility] - OUTPATIENT CLINIC NOTE PATIENT NAME: Amanda Kinney DATE of SERVICE: April 21, 2023 TIME of SERVICE: 8:38 AM PCP: Kaylin Hui Mr. 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 PMHx includes [place] s/p CABG, CAD, CHF, HTN, HLD and CVA. The pancreatic neuroendocrine tumor was incidentally discovered on a CT in 2013. EUS on 03/23/16 revealed a 15 x 11 mm mass in the pancreatic tail that interfaced with the SMA, celiac trunk, hepatic artery, splenic artery, gastroduodenal artery, L gastric artery, aorta portal vein, SMV, splenic vein, splenoportal confluence and IVC. Biopsy confirmed a diagnosis of low-grade neuroendocrine tumor. Patient was seen as an outpatient at [facility] on 05/03/17 for this neuroendocrine tumor, at which time the recommendations were MRCP and follow-up in 6 months with imaging. The patient was subsequently lost to follow-up, and we have no records of an MRCP. 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 CT was ordered in the ED, which demonstrated nondisplaced R 7th and 8th rib fractures, L1 compression deformity, cholelithiasis, and a 15 x 22 mm pancreatic tail mass. Patient was discharged home and has had ongoing R-sided rib and back pain. He denies abdominal pain, nausea, vomiting, diarrhea, constipation, weight loss, fevers, malaise, and steatorrhea. Patient reports decreased appetite for the past 2 weeks. He is currently drinking 8-10 beers per day, former smoker (quit 10 years ago), denies recreational drugs. Denies family history of pancreatitis or pancreatic cancer. CT 12/28/15: 1.5 x 1.1 cm enhancing nodule in tail of pancreas, slightly larger than prior MRI 09/20/16: stable 1.2 cm enhancing pancreatic tail lesion consistent with biopsy proven neuroendocrine tumor, no metastatic disease in the abdomen MRI 05/15/17: stable enhancing 1.4 cm pancreatic tail mass consistent with the known neuroendocrine tumor, no metastases in the abdomen CT 03/18/23: nondisplaced R 7th and 8th rib fractures, L1 compression deformity, 15 x 22 mm mass in the pancreatic tail, cholelithiasis PAST MEDICAL HISTORY: PAST MEDICAL HISTORY Diagnosis Date Back pain CAD (coronary artery disease) CVA (cerebral vascular accident) (HCC) 2018 Heart disease High cholesterol HTN (hypertension) WA, old 2013 no surgery, no stents PAST SURGICAL HISTORY: PAST SURGICAL HISTORY Procedure Laterality Date ANESTH,PACEMAKER INSERTION with AICD CABG (5) VENOUS GRAFTS & ARTERIAL GRAFT(S) 09/2017 EPS: SVT ABLATION 10/2017 x2 FEEDING TUBE-SPECIFY 2018 now removed HEART CATHETERIZATION 2013 PAST SURGICAL HISTORY OF 09/2002 Hemorrhoidectomy TRACHEOSTOMY HX 2018 FAMILY HISTORY: FAMILY HISTORY Problem Relation Age of Onset Breast Cancer Mother other (Heart Disease) Mother Colon Cancer Father Thyroid Sister Hypothyroidism Breast Cancer Sister SOCIAL HISTORY: Social History Tobacco Use Smoking status: Former Types: Cigarettes Quit date: 05/03/2007 Years since quittin.9 Smokeless tobacco: Never Tobacco comments: social smoker. Vaping Use Vaping Use: Never used Substance Use Topics Alcohol use: Yes Alcohol/week: 60.0 standard drinks of alcohol Types: 24 Cans of Beer (12oz) per week Drug use: No REVIEW OF SYSTEMS PAIN ASSESSMENT: pain in ribs and back GENERAL: No weight loss, malaise or fevers RESPIRATORY: positive for dyspnea at baseline (no recent deviations from baseline), denies coughing or wheezing CARDIOVASCULAR: negative for chest pain or palpitations GI: No nausea, vomiting, or diarrhea OBJECTIVE BP 157/76 Pulse (!) 8 Temp 36.6 C (97.9 F) (Temporal) Ht 172.7 cm (5' 8 ) Wt 95.3 kg (210 lb) BMI 31.93 kg/m General: not in acute distress CV: extremities warm and well-perfused Pulm: good respiratory effort on RA Abd: non-distended, non-tender, no rebound/guarding ASSESSMENT/PLAN Amanda Kinney is a 72-year-old male presenting for 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 PMHx is remarkable for WA s/p CABG, CAD, CHF, HTN, HLD and CVA. Patient's pancreatic mass was incidentally identified on imaging in 2013, and biopsy was consistent with a neuroendocrine tumor. The mass remained stable in size during subsequent surveillance imaging in 2015 and 2016. The patient fell in February 2023, prompting a CT that revealed an interval increase in size of the pancreatic mass to 15 x 22 mm. Patient has remained asymptomatic. The results of the patient's most recent imaging were discussed, and surgical resection via a distal pancreatectomy was recommended due to the increase in size of the neuroendocrine tumor. The risks and benefits of surgery were described, and the patient opted to pursue surveillance in 6 months rather than surgical intervention at this point in time. Plan: - CT in 6 months - Virtual follow-up visit in 6 months Magi Quintero, MS4 documented in this encounter [facility] 04-21-2023 Nurse Note What is the reason for your visit today? Consult Who is your referring physician? Dr. Adams Are you having poor oral intake? NO Have you had unintentional weight loss of 15 lbs/7 Kg in the last 3-6 months? NO Bowels: regular Wound: clean & dry Temperature: No Drains: No documented in this encounter [facility] 04-19-2023 Note EEG REPORT Patient Name: Amanda Kinney : 1950 PROVIDER REQUESTING STUDY: Dr. Muhammad REASON FOR EXAM: syncope and collapse HISTORY: Amanda Kinney is a 72 y.o. with history of syncope and collapse MEDICATIONS: Current Outpatient Medications: amiodarone (Pacerone) 200 MG tablet, , Disp: , Rfl: aspirin 81 MG EC tablet, Take 81 mg by mouth daily., Disp: , Rfl: atorvastatin (Lipitor) 40 MG tablet, , Disp: , Rfl: DULoxetine (Cymbalta) [address] capsule, Take 60 mg by mouth daily. Do not crush or chew., Disp: , Rfl: ergocalciferol (Vitamin D-2) 1.25 MG (46560 UT) capsule, Take 1.25 mg by mouth 1 (one) time per week., Disp: , Rfl: furosemide (Lasix) 20 MG tablet, , Disp: , Rfl: levothyroxine (Synthroid, Levoxyl) 25 MCG tablet, , Disp: , Rfl: losartan (Cozaar) 25 MG tablet, , Disp: , Rfl: metOLazone (Zaroxolyn) 2.5 MG tablet, Take by mouth., Disp: , Rfl: mirtazapine (Remeron) 30 MG tablet, , Disp: , Rfl: nitroglycerin (Nitrostat) 0.4 MG SL tablet, Place 0.4 mg under the tongue every 5 minutes as needed for chest pain., Disp: , Rfl: OLANZapine (ZyPREXA) 2.5 MG tablet, , Disp: , Rfl: omeprazole (PriLOSEC) [address] capsule, , Disp: , Rfl: potassium chloride CR (K-Tab) 20 MEQ ER tablet, , Disp: , Rfl: TECHNICAL ASPECTS: This routine scalp EEG study with video was carried out. Scalp electrodes were positioned in person by an instrumentation technologist, following patient education, according to the 10-20 International system of electrode placement and maintained for integrity and quality of the recording. EEG data with video was recorded continuously and digitally stored. The instrumentation technologist reviewed all automated detections and manual events and prepared the data for archiving and provider review. Referential and bipolar montages were used for review. The recording lasted for over 63 minutes. TECHNOLOGIST NOTES: There was no history of skull defect. BACKGROUND ACTIVITY: Posterior background activity: A continuous organized and well-modulated 9 Hz rhythm was seen symmetrically over the posterior head regions bilaterally. Beta range: Fronto-centrally predominant beta range activity (15-25 Hz, 10-20 uV) was seen. Sleep: N2 sleep was reached as evidenced by the appearance of vertex waves and sleep spindles seen symmetrically over the central head regions bilaterally. Normal Variants: No normal variants were identified. SLOWING: No abnormal slowing was seen. INTERICTAL EPILEPTIFORM ACTIVITY: No epileptiform activity was seen. ICTAL ACTIVITY: No ictal activity was seen. NON-EPILEPTIC EVENTS: None. IMPRESSION: This is a normal awake and asleep EEG. [facility] 04-19-2023 Procedure note Associated Ord er(s): EEG EXTENDED MORE THAN 1 HOUR Procedure(s): EEG EXTENDED MORE THAN 1 HOUR Pre-Procedure Diagnose(s): Syncope and collapse Post-Procedure Diagnose(s): Syncope and collapse EEG REPORT Patient Name: Amanda Kinney : 1950 PROVIDER REQUESTING STUDY: Dr. Muhammad REASON FOR EXAM: syncope and collapse HISTORY: Amanda Kinney is a 72 y.o. with history of syncope and collapse MEDICATIONS: Current Outpatient Medications: amiodarone (Pacerone) 200 MG tablet, , Disp: , Rfl: aspirin 81 MG EC tablet, Take 81 mg by mouth daily., Disp: , Rfl: atorvastatin (Lipitor) 40 MG tablet, , Disp: , Rfl: DULoxetine (Cymbalta) [address] capsule, Take 60 mg by mouth daily. Do not crush or chew., Disp: , Rfl: ergocalciferol (Vitamin D-2) 1.25 MG (76259 UT) capsule, Take 1.25 mg by mouth 1 (one) time per week., Disp: , Rfl: furosemide (Lasix) 20 MG tablet, , Disp: , Rfl: levothyroxine (Synthroid, Levoxyl) 25 MCG tablet, , Disp: , Rfl: losartan (Cozaar) 25 MG tablet, , Disp: , Rfl: metOLazone (Zaroxolyn) 2.5 MG tablet, Take by mouth., Disp: , Rfl: mirtazapine (Remeron) 30 MG tablet, , Disp: , Rfl: nitroglycerin (Nitrostat) 0.4 MG SL tablet, Place 0.4 mg under the tongue every 5 minutes as needed for chest pain., Disp: , Rfl: OLANZapine (ZyPREXA) 2.5 MG tablet, , Disp: , Rfl: omeprazole (PriLOSEC) [address] capsule, , Disp: , Rfl: potassium chloride CR (K-Tab) 20 MEQ ER tablet, , Disp: , Rfl: TECHNICAL ASPECTS: This routine scalp EEG study with video was carried out. Scalp electrodes were positioned in person by an instrumentation technologist, following patient education, according to the 10-20 International system of electrode placement and maintained for integrity and quality of the recording. EEG data with video was recorded continuously and digitally stored. The instrumentation technologist reviewed all automated detections and manual events and prepared the data for archiving and provider review. Referential and bipolar montages were used for review. The recording lasted for over 63 minutes. TECHNOLOGIST NOTES: There was no history of skull defect. BACKGROUND ACTIVITY: Posterior background activity: A continuous organized and well-modulated 9 Hz rhythm was seen symmetrically over the posterior head regions bilaterally. Beta range: Fronto-centrally predominant beta range activity (15-25 Hz, 10-20 uV) was seen. Sleep: N2 sleep was reached as evidenced by the appearance of vertex waves and sleep spindles seen symmetrically over the central head regions bilaterally. Normal Variants: No normal variants were identified. SLOWING: No abnormal slowing was seen. INTERICTAL EPILEPTIFORM ACTIVITY: No epileptiform activity was seen. ICTAL ACTIVITY: No ictal activity was seen. NON-EPILEPTIC EVENTS: None. IMPRESSION: This is a normal awake and asleep EEG. [facility] 04-19-2023 Procedure note Associated Ord er(s): EEG EXTENDED MORE THAN 1 HOUR Procedure(s): EEG EXTENDED MORE THAN 1 HOUR Pre-Procedure Diagnose(s): Syncope and collapse Post-Procedure Diagnose(s): Syncope and collapse EEG REPORT Patient Name: Amanda Kinney : 1950 PROVIDER REQUESTING STUDY: Dr. Muhammad REASON FOR EXAM: syncope and collapse HISTORY: Amanda Kinney is a 72 y.o. with history of syncope and collapse MEDICATIONS: Current Outpatient Medications: amiodarone (Pacerone) 200 MG tablet, , Disp: , Rfl: aspirin 81 MG EC tablet, Take 81 mg by mouth daily., Disp: , Rfl: atorvastatin (Lipitor) 40 MG tablet, , Disp: , Rfl: DULoxetine (Cymbalta) [address] capsule, Take 60 mg by mouth daily. Do not crush or chew., Disp: , Rfl: ergocalciferol (Vitamin D-2) 1.25 MG (83325 UT) capsule, Take 1.25 mg by mouth 1 (one) time per week., Disp: , Rfl: furosemide (Lasix) 20 MG tablet, , Disp: , Rfl: levothyroxine (Synthroid, Levoxyl) 25 MCG tablet, , Disp: , Rfl: losartan (Cozaar) 25 MG tablet, , Disp: , Rfl: metOLazone (Zaroxolyn) 2.5 MG tablet, Take by mouth., Disp: , Rfl: mirtazapine (Remeron) 30 MG tablet, , Disp: , Rfl: nitroglycerin (Nitrostat) 0.4 MG SL tablet, Place 0.4 mg under the tongue every 5 minutes as needed for chest pain., Disp: , Rfl: OLANZapine (ZyPREXA) 2.5 MG tablet, , Disp: , Rfl: omeprazole (PriLOSEC) [address] capsule, , Disp: , Rfl: potassium chloride CR (K-Tab) 20 MEQ ER tablet, , Disp: , Rfl: TECHNICAL ASPECTS: This routine scalp EEG study with video was carried out. Scalp electrodes were positioned in person by an instrumentation technologist, following patient education, according to the 10-20 International system of electrode placement and maintained for integrity and quality of the recording. EEG data with video was recorded continuously and digitally stored. The instrumentation technologist reviewed all automated detections and manual events and prepared the data for archiving and provider review. Referential and bipolar montages were used for review. The recording lasted for over 63 minutes. TECHNOLOGIST NOTES: There was no history of skull defect. BACKGROUND ACTIVITY: Posterior background activity: A continuous organized and well-modulated 9 Hz rhythm was seen symmetrically over the posterior head regions bilaterally. Beta range: Fronto-centrally predominant beta range activity (15-25 Hz, 10-20 uV) was seen. Sleep: N2 sleep was reached as evidenced by the appearance of vertex waves and sleep spindles seen symmetrically over the central head regions bilaterally. Normal Variants: No normal variants were identified. SLOWING: No abnormal slowing was seen. INTERICTAL EPILEPTIFORM ACTIVITY: No epileptiform activity was seen. ICTAL ACTIVITY: No ictal activity was seen. NON-EPILEPTIC EVENTS: None. IMPRESSION: This is a normal awake and asleep EEG. documented in this encounter [facility] 04-12-2023 History of Present illness Narrative Images from the original note were not included. [facility] [address] [place] [address] [facility] [address] Dept: [phone] Dept Loc: [phone] Steff Muhammad MD Thank you for your kind request for a neurological consultation on this patient. CHIEF COMPLAINT: Chief Complaint Patient presents with New Patient Syncope HISTORY OF PRESENT ILLNESS: The patient is a 72 y.o. person who presents with history of a stroke that occurred in the setting of cardiac arrest. He saw me years ago, but unfortunately do not have those records from my prior practice. He has had three spells of coughing and then briefly losing consciousness. He will cough hard and turn red and then his head slumps down briefly and he goes unconsciousness. He has issues with his trachea that chronically cause choking issues. He has no warning. He does not recall the coughing or the losing consciousness part of the events. He does report that when he comes out of it he is very quickly back out of it. No tongue biting or loss of control of the bladder during the events. He denies feeling like his defibrillator. No prior history of seizures. His family is concerned that he is developing Parkinson's disease. He has tremors. He has a chronic lower back issue and feels that that is causing trouble with getting up from chairs. He has tremor in the hands, more on the right, but he is weaker on the right after the cardiac arrest.. He is only having the tremor when actively using the hands. He is on olanzapine. He is having trouble with swallow, but that is thought to be due to issues with his trachea. He denies constipation. Past Medical History: has a past medical history of Cardiac arrest (HCC), Congestive heart failure (CHF) (CMS/HCC) (HCC), Stroke (HCC), and Syncope. Past Surgical History: has a past surgical history that includes Cardiac surgery and Cardiac pacemaker placement. Medications: Current Outpatient Medications: amiodarone (Pacerone) 200 MG tablet, , Disp: , Rfl: aspirin 81 MG EC tablet, Take 81 mg by mouth daily., Disp: , Rfl: atorvastatin (Lipitor) 40 MG tablet, , Disp: , Rfl: DULoxetine (Cymbalta) [address] capsule, Take 60 mg by mouth daily. Do not crush or chew., Disp: , Rfl: ergocalciferol (Vitamin D-2) 1.25 MG (38190 UT) capsule, Take 1.25 mg by mouth 1 (one) time per week., Disp: , Rfl: furosemide (Lasix) 20 MG tablet, , Disp: , Rfl: levothyroxine (Synthroid, Levoxyl) 25 MCG tablet, , Disp: , Rfl: losartan (Cozaar) 25 MG tablet, , Disp: , Rfl: metOLazone (Zaroxolyn) 2.5 MG tablet, Take by mouth., Disp: , Rfl: mirtazapine (Remeron) 30 MG tablet, , Disp: , Rfl: nitroglycerin (Nitrostat) 0.4 MG SL tablet, Place 0.4 mg under the tongue every 5 minutes as needed for chest pain., Disp: , Rfl: OLANZapine (ZyPREXA) 2.5 MG tablet, , Disp: , Rfl: omeprazole (PriLOSEC) [address] capsule, , Disp: , Rfl: potassium chloride CR (K-Tab) 20 MEQ ER tablet, , Disp: , Rfl: Allergies: Lisinopril Social History: Social History Socioeconomic History Marital status: Spouse name: Not on file Number of children: Not on file Years of education: Not on file Highest education level: Not on file Occupational History Not on file Tobacco Use Smoking status: Never Smokeless tobacco: Never Substance and Sexual Activity Alcohol use: Yes Drug use: Never Sexual activity: Not on file Other Topics Concern Not on file Social History Narrative Not on file Social Determinants of Health Financial Resource Strain: Not on file Food Insecurity: Not on file Transportation Needs: Not on file Physical Activity: Not on file Stress: Not on file Social Connections: Not on file Intimate Partner Violence: Not on file Housing Stability: Not on file Family History: Family History Problem Relation Name Age of Onset Breast cancer Mother Heart disease Mother Colon cancer Father Breast cancer Sister Rheum arthritis Sister No Known Problems Son No Known Problems Son REVIEW OF SYSTEMS: Review of Systems Constitutional: Negative for appetite change, chills, diaphoresis, fever and unexpected weight change. HENT: Negative for dental problem and mouth sores. Eyes: Negative for discharge and itching. Respiratory: Negative for chest tightness. Cardiovascular: Negative for chest pain and leg swelling. Gastrointestinal: Negative for rectal pain and vomiting. Endocrine: Negative for polydipsia, polyphagia and polyuria. Genitourinary: Negative for decreased urine volume, flank pain and genital sores. Musculoskeletal: Positive for back pain. Negative for arthralgias. Skin: Negative for color change. Allergic/Immunologic: Negative for food allergies and immunocompromised state. Neurological: Positive for tremors. Hematological: Negative for adenopathy. Does not bruise/bleed easily. Psychiatric/Behavioral: Negative for agitation, behavioral problems, decreased concentration, sleep disturbance and suicidal ideas. PHYSICAL EXAM: Vitals: BP (!) 141/80 (BP Location: Right arm, Patient Position: Sitting, BP Cuff Size: Adult) Pulse 70 Ht 5' 8 (1.727 m) Wt 206 lb (93.4 kg) BMI 31.32 kg/m General Appearance: Patient is in no apparent distress. Head is normocephalic, atraumatic Cardiovascular: Regular rate and rhythm. No heart murmurs. No carotid bruit Neurologic: Mentation: Alert and oriented x 3 [address] person, place and time. Speech and Language: Speech is normal and language is mildly abnormal with word finding difficulty Concentration and Attention: Concentration abnormal Memory: Memory 3/3 immed, 3/3 short Fund of Knowledge: Fund of knowledge normal Cranial Nerves: II, III, IV, V, , VII, VIII, IX, X, XI, XII tested and were intact including fundoscopic exam (optic discs) and visual field to confrontation. Motor: Strength:Strength 5 out of 5 with normal tone Alternating Movements: Normal Cogwheel Rigidity: He is difficult to get relaxed, but once he is relaxed no cogwheeling Tone: Tone is normal Tremor / Involuntary Movements: No rest tremor. He has intention tremor. He has postural tremor that is equal bilaterally Deep Tendon Reflexes: 1 out of 4 symmetrical in all four limbs. Coordination: Normal coordination upper and lower extremities Gait and Station: Station is abnormal. Gait is mildly abnormal . He keeps his lower back lordotic. Normal arm swing. Smaller than usually steps but definitely not shuffling. Pivots and turns normally. DATA EEG Service Date/Time Result Status Perform Information Sign Information Authentication Information Technique 10-05-2017 16:54 Final JESSE RESENDIZ MD (10/05/2017 4:56:24 PM) JESSE RESENDIZ MD (10/05/2017 4:56:24 PM) JESSE RESENDIZ MD (10/05/2017 4:56:24 PM) Assessment/Plan The study is performed at the patient's bedside utilizing a multichannel digital EEG device utilizing the 1020 electrode system. The patient is noted to be receiving propofol and fentanyl. The background rhythm is low voltage 1-2 cps diffusely seen through the various scalp areas. At times in the intermediate to the latter stages of the recording there is a suggestion of a degree of burst suppression although this is of extremely low voltage and is consistent with the fact the patient is receiving propofol. Impression Evidence of profound cortical dysfunction. EEG demonstrates no evidence to suggest ictal activity. Propofol and fentanyl effect is observed as described 1. Non-STEMI (non-ST elevated myocardial infarction)S/P CABGX 5 09/28/17 2. Ventricular fibrillation arrest 10/02/2017 3. Acute blood loss anemia 4. Acute respiratory failure 5. Leukocytosis 6. Cardiac arrest 7. CAD (coronary artery disease) 8. Hypertension 9. Hyperlipemia 10. Acid reflux 11. Enlarged prostate 12. Trigeminal neuralgia 13. Back pain 14. Elevated LFTs 15. Metabolic encephalopathy 16. Ileus Orders: EEG Com MR MRA BRAIN OR NECK [place] [address] Patient: AMANDA KINNEY Phone#: : [phone] Age: 64 Gender: M Pt. Type: Out Account: [id number] Location: [facility] Ordering: ANIYA LOTT Exam Date: 06/24/2015/10:00 Family Phys: AMANDA GUZMAN Charge Code: [id number] Physician: [place] Order #: [id number] DLP Dose#: PROCEDURE: MR ANGIOGRAPHY BRAIN WITHOUT CONTRAST COMPARISON: None. INDICATIONS: Syncope and collapse TECHNIQUE: MR angiography was performed without intravenous gadolinium contrast material. Multiplanar images of the cerebral arteries were created and interpreted. FINDINGS: INTERNAL CAROTIDS: No visible stenosis or aneurysm. ANTERIOR CEREBRALS: No visible stenosis or aneurysm. MIDDLE CEREBRALS: 8 mm focus of increased signal is present in the left M1 segment of the middle cerebral artery possibly at the base of the lateral lenticulostriate branch. The finding is suspicious for aneurysm. No other focal abnormality of the middle cerebral artery is identified. There is mild focal narrowing of the left posterior cerebral artery POSTERIOR CEREBRALS: There is tapered focal narrowing of the left posterior cerebral approximately 1.5 cm from its origin. BASILAR: No visible stenosis or aneurysm. VERTEBRALS: No visible stenosis or aneurysm. OTHER: Negative with no evidence of a vascular malformation. 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 There is a short segment probable tapered stenosis of the left posterior cerebral artery. This report was communicated by telephone to Dr. Aniya Lott at the dictation time shown below. Dictated by: Liya Mason MD on 06/25/2015 at 18:30 Continued Report - Page 2 of 2 Patient: AMANDA KINNEY Phone#: : [phone] Age: 64 Gender: M Pt. Type: Out Account: [id number] Location: [facility] Ordering: ANIYA LOTT Exam Date: 06/24/2015/10:0 [facility] RADIOLOGY REPORT Patient name: MARY SCHNEIDER TranscrpIN: BRISA Acct number: [id number] Age: 60 Sex: MFinancial Class: CB2 date: 1950Stay type: O/PMed Rec Num: [id number] Admit date: 03/05/11Room: X-ray number:[id number] Disch date: 03/05/11Phone: Location: Admit Phys: JB FAJARDOOrder Num: [id number] Physician 2 : Ordering Phy: JB FAJARDO Family Phys: MR MRI BRAIN W/O CONTRAST [id number] COMPLETE:03/05/11 13:37 JLW [id number] (REASON FOR TEST: ANEURYSM OR TUMOR *corrections, additions and/or subtractions to the information c ontained in this report.* RADIOLOGY REPORT MARY Foley \CNTo\ MRI OF THE BRAIN Serial images were obtained in the sagittal and axial coronal planes without contrast. No abnormal foci of increased or diminished signal intensity are identified within the parenchyma. The ventricles are symmetric. There is no evidence of midline shift. There is no evidence of mass lesion in the cerebellopontine angles. The paranasal sinuses are well pneumatized. On diffusion imaging there is no evidence of acute ischemia. The mastoid air cells are well pneumatized. IMPRESSION: 1. Normal MRI of the brain. DD: 03.07.11 MR MRA BRAIN OR NECK WO [facility] RADIOLOGY REPORT Patient name: MARY SCHNEIDER TranscrpIN: BRISA Acct number: [id number] Age: 60 Sex: MFinancial Class: CB2 date: 1950Stay type: O/PMed Rec Num: [id number] Admit date: 03/05/11Room: X-ray number:[id number] Disch date: 03/05/11Phone: [phone] Location: Admit Phys: JB FAJARDOOrder Num: [id number] Physician 2 : Ordering Phy: JB FAJARDO Family Phys: MR MRA BRAIN OR NECK WO CONTR [id number] COMPLETE:03/05/11 13:37 [facility] [id number] (REASON FOR TEST: ANEURYSM OR TUMOR Unsigned transcriptions represent a preliminary report and do not reflect *corrections, additions and/or subtractions to the information c ontained in this report.* RADIOLOGY REPORT MARY SCHNEIDER 1 \CNTo\ MRA OF THE BRAIN Images were obtained in multiple phases without contrast. The carotid and basilar artery are normal in caliber. The [place] is unremarkable in configuration. The anterior cerebral, middle cerebral, and posterior cerebral vessels are symmetric. There is no evidence of aneurysmal dilatation. There is no evidence of vascular irregularity or cutoff. IMPRESSION: 1. Normal MRA of the brain. MRI BRAIN WO IVCON HISTORY: Clinical concern for an infarct. COMPARISON: CT brain 10/20/2017. TECHNIQUE: Routine MRI brain without intravenous contrast. RESULT: MR BRAIN: Acute Change: There is no evidence of restricted diffusion to suggest an acute infarct. Hemorrhage: Susceptibility changes are seen within the left frontal lobe anteriorly, left middle frontal gyrus dorsally and left precentral gyrus, left frontal operculum, right occipital pole, and the right cerebellar hemisphere posteriorly. Findings are consistent with remote parenchymal microhemorrhages/petechial hemorrhage within the remote infarcts. There is also curvilinear area of susceptibility within the left superior frontal sulcus dorsally on series 8 image 7 suggesting trace remote subarachnoid hemorrhage. Mass Effect / Mass Lesion: No evidence of an intracranial mass or extra-axial fluid collection. No significant mass effect. Chronic Change: There is T2/FLAIR hyperintensity with gyriform intrinsically high T1 signal within the left frontal operculum and left precentral gyrus, left temporal lobe laterally, right occipital pole, right cerebellar hemisphere dorsally, and to lesser degree within the left middle frontal gyrus dorsally suggesting cortical laminar necrosis secondary to remote infarcts. Left middle frontal gyrus infarct is subacute based on prior CT. Scattered patchy areas of increased T2 and FLAIR signal are present within white matter of both hemispheres, a nonspecific finding, but most likely represents chronic small vessel ischemic change. Parenchyma: There is moderate generalized parenchymal volume loss. The brain parenchyma is otherwise within normal limits of signal intensity and morphology. Ventricles: Ventriculomegaly corresponds to the degree of parenchymal volume loss. Skull Base: Hypothalamic and pituitary region are grossly normal. Craniocervical junction is normal. No significant marrow replacement process. Vasculature: Major intracranial arterial structures, and dural venous sinuses show typical flow void, suggesting patency by spin echo criteria. Other: There is retained fluid in mastoid air cells bilaterally. Mucosal thickening is seen within the left maxillary sinus and sphenoid sinus chambers. The orbits and extracranial soft tissues are unremarkable. Exam End: -- Specimen Collected: 11/03/17 13:43 [facility] Bedside Video EEG Monitoring Patient: Amanda Kinney - [id number] Date: 04 Nov 2017 Requested by: Ramesh Alemna History synopsis PT with h/o CABG on 09/28/17 at OSH presents with multiple cardiac arrests post-op. OSH CT brain demonstrated moderated global anoxic brain injury and EEG demonstrated profound cortical dysfunction. Transfer to [facility] for further management. BEM started on 10/08/17 at 0050. BEM D/C'd 10/09/17 at 1324. BEM reordered on 09/28/17 for worsening AMS. Classification Abnormal III (Stupor, 10-20 Scalp Electrodes, Anterior temporal electrodes) 1 Continuous Slow, Generalized Impression This bedside EEG was recorded from 11/04/17 at 1:53 until 4:43 and is suggestive of a moderate to severe diffuse encephalopathy. No epileptiform discharges or EEG seizures were recorded. Addendum This bedside EEG was recorded from 11/04 at 4:43 until 11/05 at 5:01 and is suggestive of a moderate to severe diffuse encephalopathy. No epileptiform discharges or EEG seizures were recorded. Interpreted and electronically signed by Arnulfo Lau M.D. at the date and time indicated below under Results. Resulting Agency NEUROLOGY Specimen Collected: 11/04/17 Last Resulted: 11/05/17 11:02 Received From: [facility] Result Received: 04/11/23 22:23 CBC: No results found for: WBC, RBC, HGB, HCT, MCV, MCH, MCHC, RDW, PLT, MPV CMP: No results found for: NA, K, CL, CO2, BUN, CREATININE, AGRATIO, LABGLOM, GLUCOSE, GLU, PROT, CALCIUM, BILITOT, ALKPHOS, AST, ALT BMP: No results found for: NA, K, CL, CO2, BUN, CREATININE, CALCIUM, LABGLOM, GLUCOSE, GLU PT/INR: No results found for: PROTIME, INR PTT: No results found for: APTT, PTT[APTT} FLP: No results found for: CHLPL, TRIG, HDL, LDLCALC, LDLDIRECT TSH: No results found for: TSH VITAMIN B12: No results found for: [id number] FERRITIN: No results found for: FERRITIN ---- No results found for: PHENYTOIN, PHENOBARB, VALPROATE, CBMZ No components found for: TOPIRANo results found for: OXCARBAZE, OXCARB @LASTAPPOINTMENTTHISPROV@ No image results found. @RESULTINGLABINFO@ No results found for: LEVETIRACETA, FERRITIN, CRP, RIANA, ANCA No results found for: GERARD, IMMUNOGLOBUL, OLIGOBANDS No results found for: [id number], HEPCAB No results found for: CRP, ANATITER, ANCA, ANCA ASSESSMENT AND PLAN: Diagnosis Plan 1. Syncope and collapse 2. Cough syncope 3. Other drug-induced secondary parkinsonism (HCC) It is medically necessary to get MRI brain and EEG for atonic seizures given his prior brain injury from the cardiac arrest. The clinical history is much more consistent with cough syncope (a form of vasovagal syncope). His exam is more consistent with changes due to the neuroloeptic and the other meds, including the amiodarone, causing the tremor and other findings that were worrisome for Parkinson's disease. Will follow. Meds for this might not be a good idea given his vasovagal syncope events. I spent 45 minutes caring for this patient today, reviewing labs and records, seeing the patient, documenting in the record and arranging for studies. documented in this encounter [facility] 04-03-2023 Miscellaneous Notes Records and images request faxed to [facility] / [phone] Records scanned in from referring office. documented in this encounter [facility] 03-30-2023 Miscellaneous Notes Spoke with , device is MRI compatible. Pt does follow routinely in [facility] per . She will have the facility doing the MRI to contact that clinic for the most updated device information as [facility] device clinic has not seen the patient since 2020. documented in this encounter [facility] 03-23-2023 Miscellaneous Notes Received referral fax for patient, scanned into [employer]. Pt needs referred to Filemon Adams at [facility] per Dr. Randhawa. Referral and physician info given to [facility] for scheduling. Lorna Nath RN documented in this encounter [facility] 10-04-2022 Note HNO ID: [id number] Author: Sonu Riojas MD Service: ? Author Type: Physician Type: Progress Notes Filed: 10/04/2022 10:03 AM Note Text: pulm rehab [facility] 10-04-2022 Note HNO ID: [id number] Author: Montserrat De León Feller Machine Operator Service: ? Author Type: Feller Machine Operator Type: Progress Notes Filed: 10/04/2022 9:12 AM Note Text: Order for pulmonary rehabilitation faxed to [facility] pulmonary rehab on 10/04/22 Montserrat De León MS, [facility] 10-04-2022 History of Present illness Narrative pulm rehab documented in this encounter [facility] 10-04-2022 History of Present illness Narrative Order for pulmonary rehabilitation faxed to [facility] pulmonary rehab on 10/04/22 Montserrat De León MS, [facility] documented in this encounter [facility] 09-27-2022 History of Present illness Narrative Established patient here for follow-up to tracheal surgery, resection for stenosis/malacia. He feels his breathing is terrible . He noted no improvement since surgery. Seen by ENT recently, scope done showing similar appearance to what I saw on last post-surgical bronch. PFT today, did poorly in 6 MWT. Poor exercise capacity since 2018. I asked about walking b/t [place] and [place] building across Said he couldn't do it without stopping, rest for 5 minutes. Would take about 20 minutes to cross the clearing. Did exercise 3-4 months ago. Limited by SOB. Stopped doing it, but unsure of why. Weight about same for many years, within 10 lbs. PAST MEDICAL HISTORY Diagnosis Date Back pain CAD (coronary artery disease) CVA (cerebral vascular accident) (HCC) 2018 Heart disease High cholesterol HTN (hypertension) [place], old 2013 no surgery, no stents PAST SURGICAL HISTORY Procedure Laterality Date ANESTH,PACEMAKER INSERTION with AICD CABG (5) VENOUS GRAFTS & ARTERIAL GRAFT(S) 09/2017 EPS: SVT ABLATION 10/2017 x2 FEEDING TUBE-SPECIFY 2017 now removed HEART CATHETERIZATION 2013 PAST SURGICAL HISTORY OF 09/2002 Hemorrhoidectomy TRACHEOSTOMY HX 2018 Social History Tobacco Use Smoking status: Former Types: Cigarettes Quit date: 05/03/2007 Years since quittin.4 Smokeless tobacco: Never Tobacco comments: social smoker. Vaping Use Vaping Use: Never used Substance Use Topics Alcohol use: Yes Alcohol/week: 60.0 standard drinks Types: 24 Cans of Beer (12oz) per week Drug use: No ROS: GENERAL: No weight loss, malaise or fevers. HEENT: Negative for frequent or significant headaches, No changes in hearing or vision, no nose bleeds or other nasal problems. RESPIRATORY: SEE HPI CARDIOVASCULAR: Negative for chest pain, leg swelling and palpitations GI: Negative for abdominal discomfort, blood in stools or black stools and change in bowel habits : Negative for dysuria, frequency and incontinence MUSCULOSKELETAL:unremarkable SKIN: Negative for lesions, rash, and itching. PSYCH: Negative for sleep disturbance, mood disorder and recent psychosocial stressors. HEMATOLOGY/LYMPHOLOGY Negative for prolonged bleeding, bruising easily, and swollen nodes. ENDOCRINE: Negative for cold or heat intolerance, polyuria, polydipsia and goiter. 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 I would recommend a visit with thoracic to discuss options, though I suspect this was a one attempt type of surgery. I see options as: >Pulm rehab for at least 6 weeks and then a re-evaluation >Weight loss, increase exercise >Tracheostomy then convert to likely life-long T-tube If he responds well enough to the rehab then I would favor the less invasive approach. Will discuss Thank you for the interesting consult. I will forward this note on to the consulting physician Sonu Riojas MD documented in this encounter [facility] 09-27-2022 History of Present illness Narrative PULM FUNCTION SMARTBLOCK: Provider: Sonu Riojas MD Spirometry: 1 6 MW: 1 System: MC6 - [id number] documented in this encounter [facility] 09-27-2022 Procedure note Associated Ord er(s): SIX MINUTE WALK RESPIRATORY THERAPY SIX MINUTE WALK TEST OXIMETRY REPORT Six Minute Walk Test for This Encounter Oxygen Device Liters FIO2 SpO2% HR Activity Feet Speed (MPH) Flag R/A 100 66 Resting R/A 96 74 Six Minute Walk 515 1 R/A 99 70 Recovery 1 minute post R/A 99 69 Recovery 2 minute post R/A 100 68 Recovery 3 minute post General Information Height Weight Smoking Status Pulse Oximetry Site Oximeter Pre Blood Pressure Post Blood Pressure Total Time Spent (min) 173 cm (5' 8.11 ) 98.1 kg (216 lb 4.3 oz) Ex-smoker Forehead Masimo 147/69 152/68 30 _ Distance Walked (meters) Distance Walked (feet) Male Predicted Walk Distance (feet) Male Lower Limit of Normal (feet) Male % Predicted Total Duration Of The Stops (seconds) 156.97 515 1580.05 1078.05 32.6 -- _ Lowest SpO2 During 6 Minute Walk Pre-Srinivas Dyspnea Rating Pre-Srinivas Fatigue Rating Post Srinivas Dyspnea Rating Post Srinivas Fatigue Rating O2 Supply Carrier Walking Assistance/Device 96 % 4 4 5 7 -- 3 Wheel Walker Six Minute Walk Trend (Previous Encounters) None SIGNATURE: Jd Mccollum RRT PATIENT NAME: Amanda Newell Close DATE: September 27, 2022 TIME: 11:51 AM The patient completed the six minute walk test with No stops. . The patient required Room Air to complete the test. The distance the patient walked in six minutes is extremely reduced. This is the first time patient takes the six minute walk test. The patient perceived their dyspnea during the six minute walk test to be 5-Severe on the modified Srinivas scale. The patient perceived their fatigue during the six minute walk test to be 7-Very severe on the modified Srinivas scale. I have reviewed the findings and made appropriate revisions as needed. SIGNATURE: Jd Brewster MD PATIENT NAME: Amanda Newell Close DATE: September 27, 2022 TIME: 1:00 PM documented in this encounter [facility] 09-27-2022 History of Present illness Narrative [facility] Speech Pathology Consult Modified Barium Swallow 09/27/2022 IMPRESSIONS: Functional oropharyngeal swallow. Laryngeal penetration with liquid. No tracheal aspiration with any consistency. No pharyngeal residue. PROGNOSIS: Favorable for safe and adequate oral intake RECOMMENDATIONS: - Continue Regular diet with thin liquids - Add moisture (sauces or gravies) to meats and other dry foods as needed - Sit upright PLAN: Patient to follow-up with ENT / Dr. Rollins as needed Stephanie Barnhart M.S. [facility]-COSTUMING SUPERVISOR Clinical Speech Pathologist Pager: [phone] Voicemail: [phone] DIAGNOSIS / HISTORY: Amanda Kinney is a 71 year old man referred by Dr. Rollins for a modified barium swallow study to assess oropharyngeal swallow function and risk of aspiration. Accompanied by his caregiver who helped provide history. Patient has some aphasia from stroke but was able to provide short utterances, appropriate responses to questions. Patient reported the following dysphagia symptoms: - avoids some dry meats; otherwise, eats all foods - no coughing or choking episodes reported - reported sometimes it is hard to swallow - sore throat / pain with swallowing noted during Dr. Rollins's appointment has resolved. Per Dr. 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 Oviedo. Tracheoscopy today shows ~50% narrowing at anastomotic site. HE is only SOB on exertion. I believe his airway is adequate at this time for general activity and his symptoms may be more related to deconditioning and maybe diaphragm paralysis. But we will reach out to Dr. Oviedo to notify him of symptoms. His odynophagia is on the left and he does have some tenderness at level of submandibular gland. On exam there are no palpable findings and videostroboscopy shows no lesions. We discussed ordering an MBS to eval the swallow. He also has some tongue fasciculations and post-stroke dysarthria- we will refer him to neurology for evaluation. PAST MEDICAL HISTORY Diagnosis Date Back pain CAD (coronary artery disease) CVA (cerebral vascular accident) (HCC) 2018 Heart disease High cholesterol HTN (hypertension) [place], old 2013 no surgery, no stents PAST SURGICAL HISTORY Procedure Laterality Date ANESTH,PACEMAKER INSERTION with AICD CABG (5) VENOUS GRAFTS & ARTERIAL GRAFT(S) 09/2017 EPS: SVT ABLATION 10/2017 x2 FEEDING TUBE-SPECIFY 2017 now removed HEART CATHETERIZATION 2013 PAST SURGICAL HISTORY OF 09/2002 Hemorrhoidectomy TRACHEOSTOMY HX 2018 HEARING STATUS: Appeared functional in a quiet room. BEHAVIORAL OBSERVATIONS: Alert, Cooperative, Aphasic (mild) MANAGEMENT OF SECRETIONS: Clear, moist oral cavity PRESENT FEEDING METHOD: Oral Diet Level: Regular Diet with thin liquids Dentition: Adequate Tracheostomy: No O2: Room Air ORAL MECHANISM EVALUATION Facial Symmetry at Rest: Right Droop LABIAL Pursing: Impaired Retraction: Impaired - decreased on right side VELAR Elevation / AH: difficult to visualize Gag Reflex: Did not test LARYNGEAL Wet Vocal Quality: No Cough: Unable to produce cough, said cough LINGUAL Protrusion: Good range of motion, noted some fasciculations. Retraction: Did not test Lateralization: Within Functional Limits Elevate / Depress: Within Functional Limits SPEECH PRODUCTION Articulation: Within Functional Limits Intelligibility: Within Functional Limits Vocal Quality: Within Functional Limits Vocal Intensity: Within Functional Limits Rate / Prosody: Within Functional Limits POSITION OF PATIENT: Seated in wheelchair VIEW: Lateral, A-P CONSISTENCIES GIVEN: Bob cracker coated with pudding / Barium mixture Pudding mixed with Barium [place] thick Barium liquid Thin Barium liquid LIQUIDS GIVEN VIA: Cup Oral Phase: Lip Closure: Not visualized; Clinically, demonstrated good lip closure Tongue Control: 0 = Cohesive bolus between tongue to palate seal Bolus Preparation/Mastication: 1 = Slow prolonged chewing/mashing with complete re-collection Bolus Transport/Lingual Motion: 1 = Delayed initiation of tongue motion Oral Residue: 1 = Trace residue lining oral structures Initiation of Pharyngeal Swallow: 3 = Bolus head in pyriform Pharyngeal Phase: Soft Palate Elevation: 0 = No bolus between soft palate / pharyngeal wall Laryngeal Elevation: 1 = Partial superior movement of thyroid cartilage / partial approximation of arytenoids to epiglottic petiole Anterior Hyoid Excursion: 0 = complete anterior movement Epiglottic Movement: 0 = Complete inversion Laryngeal Vestibule Closure: 1 = Incomplete; narrow column air/contrast in laryngeal vestibule Pharyngeal Stripping Wave: 0 = Present - complete Pharyngeal Contraction: 0 = Complete Pharyngoesophageal Segment Opening: difficult to fully visualize due to positioning / shoulder but appeared to fully open Tongue Base Retraction: 1 = Trace column of contrast or air between tongue base and pharyngeal wall Pharyngeal Residue: 1 = Trace residue within or on pharyngeal structures Esophageal Screening: Esophageal Clearance Upright Position: 0 = Complete clearance; esophageal coating Penetration Aspiration Scale (PAS): 2 - Material enters the airway, remains above the vocal folds, and is ejected from the airway COMMENTS: Delayed A-P transfer. Some forward / back rocking of bolus with pudding prior to transfer but not with liquid or solid. Delayed swallow onset. Laryngeal penetration with thin and mildly thick (nectar-thick) liquid which never reached vocal folds. Barium was fully ejected from larynx with initial swallow in most instances. With initial sip of thin liquid, patient had slight amount of premature spillage which resulted in deeper laryngeal penetration with trace coating retained in larynx after initial swallow but fully cleared with reflexive and immediate reswallow. No tracheal aspiration. No coughing or throat clearing during study. No dysphagia symptoms reported during study. Results and Recommendations discussed with: Patient and Caregiver Onset of Illness: 06/25/2022 Initial Date of Treatment: 09/27/2022 Treatment Plan Date: 09/27/2022 Stephanie Barnhart M.S., CCC-COSTUMING SUPERVISOR Clinical Speech Pathologist Pager: [phone] Voicemail: [phone] documented in this encounter [facility] 09-27-2022 History of Present illness Narrative Radiology Service Progress Note PATIENT NAME: Amanda Kinney DATE OF SERVICE: September 27, 2022 TIME: 9:23 AM PATIENT IDENTITY VERIFICATION COMPLETED USING TWO (2) IDENTIFIERS: Name and Date of confirmed by patient verbally. FALL SCREENING: Has the patient had 2 falls in the last year or 1 fall with injury or currently using an Ambulatory Assistive Device (Walker, Cane, Wheelchair, Crutches, etc.)? No PATIENT GENDER DATA: Male PATIENT RELEVANT IMPLANT DATA REVIEWED: Not Applicable RADIOLOGY DEPARTMENT: General X-ray: Exam(s) Completed: GI/ Procedure(s): Modified barium swallow with barium contrast PERIPHERAL IV DATA: Not applicable SIGNED BY: RT Edward(R) September 27, 2022 9:23 AM documented in this encounter [facility] 09-23-2022 History of Present illness Narrative IP Clinical Coordinator Pre-Visit Chart Review Date of Visit: 09/27/22 Type of Visit: Est Summary of Reason for Visit: Follow Up Needed Testing Prior to Visit: PFTs and barium swallow scheduled scheduled prior to visit; same day Notes: [place] MSN, RN, CCRN-K Interventional Pulmonary Clinical Coordinator documented in this encounter [facility] 07-27-2022 Nurse Note Tobacco Use: Quit 05/03/2007. Types: Cigarettes Was smoking cessation packet given? N/A - Patient is a non-smoker or quit >1 year ago. Was a referral initiated?N/A Patient is a non-smoker documented in this encounter [facility] 07-27-2022 History of Present illness Narrative Images from the original note were not included. 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 Oviedo. Tracheoscopy today shows ~50% narrowing at anastomotic site. HE is only SOB on exertion. I believe his airway is adequate at this time for general activity and his symptoms may be more related to deconditioning and maybe diaphragm paralysis. But we will reach out to Dr. Oviedo to notify him of symptoms. His odynophagia is on the left and he does have some tenderness at level of submandibular gland. On exam there are no palpable findings and videostroboscopy shows no lesions. We discussed ordering an MBS to eval the swallow. He also has some tongue fasciculations and post-stroke dysarthria- we will refer him to neurology for evaluation. HPI: Last seen by Dr. Oviedo 06/07/21: 70-year-old male who has a complex history he suffered a CVA and has some aphasia as well as some weakness. He also has coronary artery disease and has a history of CAD with a history of a CABG and placement of an AICD for ventricular fibrillatory arrest. 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 He underwent resection tracheal rings 1-4 with primary anastamosis with myself and Dr. Nath on 05/12/21. -last seen by cardiothoracic 03/15/22 where they discussed trach versus t-tube placement for the stenosis at the anastomotic site -one month of odynophagia, left side ay level of larynx, burning sensation, no dysphagia -had fever and sore throat earlier in June but fever has resolved and now pain is only when swallowing -no wt loss -previous smoker quit 10-15 years ago -no intubations since tracheal resection ALLERGIES Allergen Reactions Lisinopril Cough Current Outpatient Medications Medication Sig polyethylene glycol 3350 (MIRALAX, GLYCOLAX) 17 gram packet Take 1 Packet by mouth once daily. Dissolve dose in 4 - 8 ounces of liquid and take as directed. levothyroxine (EUTHYROX) 25 mcg tablet Take 25 mcg by mouth once daily. nitroglycerin sublingual (NITROQUICK) 0.4 mg SL tablet Dissolve 0.4 mg under the tongue as needed. metOLazone (ZAROXOLYN) 2.5 mg tablet Take 2.5 mg by mouth as needed. omeprazole (PRILOSEC) 20 mg capsule Take 20 mg by mouth once daily. amiodarone (PACERONE) 100 mg tablet Take 200 mg by mouth once daily. FLUoxetine (PROZAC) 20 mg capsule Take 20 mg by mouth once daily. furosemide (LASIX) 20 mg tablet Take 40 mg by mouth twice daily. losartan (COZAAR) 50 mg tablet Take 25 mg by mouth twice daily. KLOR-CON M10 10 mEq tablet Take 20 mEq by mouth twice daily. OLANZapine (ZYPREXA) 2.5 mg tablet Take 2.5 mg by mouth once daily. mirtazapine (REMERON) 30 mg tablet Take 30 mg by mouth once daily. acetaminophen (TYLENOL) 650 mg/20.3 mL soln Take 20.3 mL by mouth every 6 hours as needed. ARIPiprazole (ABILIFY) 5 mg tablet 0.5 tablets by ORAL/FEEDING TUBE route once daily. aspirin 81 mg chewable tablet 2 tablets by ORAL/FEEDING TUBE route once daily. atorvastatin (LIPITOR) 40 mg tablet Take 40 mg by mouth once daily. No current facility-administered medications for this visit. PAST MEDICAL HISTORY Diagnosis Date Back pain CAD (coronary artery disease) CVA (cerebral vascular accident) (HCC) 2018 Heart disease High cholesterol HTN (hypertension) [place], old 2013 no surgery, no stents PAST SURGICAL HISTORY Procedure Laterality Date ANESTH,PACEMAKER INSERTION with AICD CABG (5) VENOUS GRAFTS & ARTERIAL GRAFT(S) 09/2017 EPS: SVT ABLATION 10/2017 x2 FEEDING TUBE-SPECIFY 2017 now removed HEART CATHETERIZATION 2013 PAST SURGICAL HISTORY OF 09/2002 Hemorrhoidectomy TRACHEOSTOMY HX 2018 Social History: Social History Tobacco Use Smoking status: Former Types: Cigarettes Quit date: 05/03/2007 Years since quittin.2 Smokeless tobacco: Never Tobacco comments: social smoker. Vaping Use Vaping Use: Never used Substance Use Topics Alcohol use: Yes Alcohol/week: 60.0 standard drinks Types: 24 Cans of Beer (12oz) per week Drug use: No PHYSICAL EXAM: On physical examination Amanda Kinney is a well-developed, well nourished male. Speech is slow and dysarthric. The voice is appropriate Cranial nerves II-XII are grossly intact Mental status revealed patient to be alert and oriented. Mood is appropriate. Details of the physical examination: HEAD AND FACE: Physical examination of the head, neck, external nose, external ears, mouth and face fails to demonstrate any significant abnormality or asymmetry to critical face to face observation. Skin and scalp are normal. ORAL CAVITY/OROPHARYNX: no lesions or masses, tongue fasciculations present LARYNX: Recommend flexible laryngoscopy with stroboscopy NECK: soft, non tender, no masses or KEN CHARTS REVIEWED: -Thoracic surgery clinic notes, notes from Dr. Ivelisse Coffey MD PROCEDURE NOTE: Recommended Videostroboscopy and tracheoscopy. Risks, benefits and alternatives were explained. The patient wished to proceed he was reidentified and a time out obtained. PROCEDURE: Videostroboscopy PREOPERATIVE DIAGNOSIS: tracheal stenosis, left throat pain POSTOPERATIVE DIAGNOSIS: same INDICATIONS: Evaluation larynx to:evaluate lesion and assess vibratory margin ANESTHESIA: Lidocaine and Phenylephrine PROCEDURE: With the patient sitting upright, a flexible scope was used : Topical anesthesia and vasoconstriction was applied with spray to the right and left side(s) of the nose. After waiting an appropriate period of time for anesthesia/vasoconstriction to become effective, a flexible laryngoscope was passed through the left side(s) of the nose. Nasopharynx was normal. FINDINGS: The nasopharynx was normal without any lesions or masses visualized. No masses or lesions were visualized at the base of tongue, vallecula, epiglottis, aryepiglottic folds, pyriform sinuses, and lateral pharyngeal arguello. True vocal fold movement was intact bilaterally. No lesions visualized. Mucosal wave was noted to be present and equal bilaterally. Amplitude was normal. Closure was complete. Phase symmetry was Present. The scope was passed into the subglottis and trachea, anastomotic site was visualized within th proximal trachea, sutures visualized within lumen, ~50% narrowing with what looked like soft granulation tissue. Past this site there was no stenosis seen, arcenio was visualized below. Pt tolerated the procedure well, and there were no complications. Given the patient's history and physical examination, the above procedure was recommended. We reviewed the risks, benefits, alternatives, and what to expect from the procedure and informed consent was obtained from the patient. The patient wished to proceed. I performed or was present for the hernández portions or the entirety of the procedure. MD Janneth Parks MD I participated in the history and physical exam of Amanda Kinney. I discussed the management of Amanda Kinney with the resident. I reviewed the note and agree with the documented findings and plan of care. Sonu Rollins MD Medical Decision Making: Problems: Moderate: 1+ chronic illnesses with change and 2+ stable chronic illnesses Data: Unique source(s) for external note(s) reviewed: 3+ Unique test(s) ordered: 1 Risk: Low: Low risk from testing/treatment Medical Decision Making Level: 4 - Moderate documented in this encounter [facility] 04-26-2022 History of Present illness Narrative Images from the original note were not included. Interventional Pulmonary [employer] Developer Note OV Date: 05/10/22 Date of last visit: 03/15/22 RECOMMENDATION/PLAN FROM LAST VISIT Vita BRYSON, RN, CCRN-K Interventional Pulmonary Clinical Coordinator documented in this encounter [facility] 03-22-2022 History of Present illness Narrative Clinical Coordinator Office Visit Follow Up Visit Date: 03/15/22 RECOMMENDATION/PLAN: A/P 1. 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 OSAS 4. Obese 5. Deconditioned I feel there are many contributing factors in his dyspnea and we will work on those we can improve and see how much better he feels. >Weight loss >Exercise >Initiate treatment for sleep apnea >Will give at least 1 month on nocturnal NIV and then if not better: >Discuss tracheotome and conversion to T-tube >I doubt the plication or pacing will help and his airway is still quite narrow. Will d/w the surgical team as well. I will forward this note on to the consulting physician [employer] Developer Follow up >FU OV set for 05/10/22 >Consult request to [facility] and flash BRYSON, RN, CCRN-K Interventional Pulmonary Clinical Coordinator documented in this encounter [facility] 03-15-2022 Miscellaneous Notes Spoke to patient and spouse, scheduled a established patient visit for 05/10/22 documented in this encounter [facility] 03-15-2022 History of Present illness Narrative Established patient here for follow-up evaluation. Here for a follow-up evaluation. I can't get my breath Was at [facility] yesterday and had a sniff test done-they son;t have results from it. He did have it done here as well, showed paretic right. Did have a sleep study done and he needs NIV at night. Quite frustrated that he can't breathe as well as he hoped he could after the resection. Looking for some answers and solutions. This is why he went to for eval of possible pacing. He never felt like he improved after resection. PAST MEDICAL HISTORY Diagnosis Date Back pain CAD (coronary artery disease) CVA (cerebral vascular accident) (HCC) 2018 Heart disease High cholesterol HTN (hypertension) [place], old 2013 no surgery, no stents PAST SURGICAL HISTORY Procedure Laterality Date ANESTH,PACEMAKER INSERTION with AICD CABG (5) VENOUS GRAFTS & ARTERIAL GRAFT(S) 09/2017 EPS: SVT ABLATION 10/2017 x2 FEEDING TUBE-SPECIFY 2017 now removed HEART CATHETERIZATION 2013 PAST SURGICAL HISTORY OF 09/2002 Hemorrhoidectomy TRACHEOSTOMY HX 2017 FAMILY HISTORY Problem Relation Age of Onset Breast Cancer Mother other (Heart Disease) Mother Colon Cancer Father Thyroid Sister Hypothyroidism Breast Cancer Sister Social History Tobacco Use Smoking status: Former Smoker Types: Cigarettes Quit date: 05/03/2007 Years since quittin.8 Smokeless tobacco: Never Used Tobacco comment: social smoker. Vaping Use Vaping Use: Never used Substance Use Topics Alcohol use: Yes Alcohol/week: 60.0 standard drinks Types: 24 Cans of Beer (12oz) per week Drug use: No ROS: GENERAL: No weight loss, malaise or fevers. HEENT: Negative for frequent or significant headaches, No changes in hearing or vision, no nose bleeds or other nasal problems. RESPIRATORY: SEE HPI CARDIOVASCULAR: Negative for chest pain, leg swelling and palpitations GI: Negative for abdominal discomfort, blood in stools or black stools and change in bowel habits : Negative for dysuria, frequency and incontinence MUSCULOSKELETAL:unremarkable SKIN: Negative for lesions, rash, and itching. PSYCH: Negative for sleep disturbance, mood disorder and recent psychosocial stressors. HEMATOLOGY/LYMPHOLOGY Negative for prolonged bleeding, bruising easily, and swollen nodes. ENDOCRINE: Negative for cold or heat intolerance, polyuria, polydipsia and goiter. NEURO: negative PE: BP 135/69 Pulse 60 Temp 36.6 C (97.8 F) (Temporal) SpO2 93% Consitutional: Well developed; No acute respiratory distress, no accessory muscle use Head: Normocephallic atraumatic Ophtho: pupils = bilat Ears, Nose and Throat: TM clear; oropharnx without erythema, no exudate; trachea midline Heme/Lymph: No LAD, neck supple Respiratory: clear Breath Sounds b/l no rhonchi/wheeze or rales Cardiac: reg rate and rhythm, no murmurs, rubs or gallops Gastro: Abd soft nontender and nondistended with nl bowels sounds Musculoskeletal: no clubbing or cyanosis; no edema Skin: no rash Neuro: nonfocal neuro Personally reviewed prior bronch images, CT and OSH records. A/P 1. 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 OSAS 4. Obese 5. Deconditioned I feel there are many contributing factors in his dyspnea and we will work on those we can improve and see how much better he feels. >Weight loss >Exercise >Initiate treatment for sleep apnea >Will give at least 1 month on nocturnal NIV and then if not better: >Discuss tracheotome and conversion to T-tube >I doubt the plication or pacing will help and his airway is still quite narrow. Will d/w the surgical team as well. I will forward this note on to the consulting physician Sonu Riojas MD documented in this encounter [facility] 03-11-2022 History of Present illness Narrative Interventional Pulmonary [employer] Developer Note OV Date: 03/15/22 Date of last visit: 06/16/21 >>Patient will bring most recent CT films >>Returning for continued breathing issues >>Last OSH note in scanned docs RECOMMENDATION/PLAN FROM LAST VISIT A/P 1. Tracheal Stenosis S/P resection 05/15 2. CAD 3. S/P CVA 4. Elevation of right hemidiaphragm Despite what sounds like a successful surgery he doesn't seem to be feeling much better. However, many factor may play a role in this. His deconditioning from inactivity after his prolonged illness (over 3 years) is certainly playing some role. His CVA also limits his communication to some degree, however his does help quite a bit. we will try to recreate position during bronch on laying flat and raising arms over head to see if there is any airway compromise. Interestingly his right diaphragm is elevated, though it has been on all imaging I have access to. I think a SNIFF is also a reasonable test to perform at his bronchoscopy this week . >Bronch with airway evaluation >Observe airway with arms over head >Sniff test Pertinent Clinical Notes/Test Results from Last Visit Bronch 06/18/21 Impression: - Shortness of breath - The distal airway examination was remarkable for EDAC with forced expiration normal. - Evidence of previous surgery was found in the upper trachea and while there is notable lateral narrowing I do not think this is flow limiting. - No specimens collected. Recommendation: - Polysomnography to evaluate for sleep disordered breathing. I would ask that consideration of both apnea and hypoventilation be considered. - Follow up with referring physician as previously scheduled . Vita Park MSN, RN, CCRN-K Interventional Pulmonary Clinical Coordinator documented in this encounter [facility] 02-18-2022 Miscellaneous Notes Images from the original note were not included. 02/18/22- Received and scanned in outside medical records documented in this encounter [facility] 02-09-2021 Note HNO ID: [id number] Author: Brenda Nath MD, PhD Service: ? Author Type: Physician Type: Progress Notes Filed: 02/09/2021 4:54 PM Note Text: I have read and reviewed the documentation and agree. I wish to add the followingI wish to add the following findings which have been dictated and will be communicated back to the requesting physician . I spent more than 50 % of the visit face to face counseling the patient on the plan and treatment options. The total time phone visit was 25 minutes. Brenda Nath MD, PhD [facility] 02-09-2021 Note HNO ID: [id number] Author: Brenda Nath MD, PhD Service: ? Author Type: Physician Type: Progress Notes Filed: 02/09/2021 4:54 PM Note Text: See dictation [facility] 02-09-2021 Note HNO ID: [id number] Author: Brenda Nath MD, PhD Service: Thoracic Surgery Author Type: Physician Type: Progress Notes Filed: 02/18/2021 12:29 PM Note Text: [facility] Progress Note AMANDA KINNEY CSN#: [id number] PATIENT TYPE: T LOCATION: [facility] ORIGINATOR: Brenda Nath M.D. DATE OF SERVICE: 02/09/2021 DATE OF SERVICE: 02/09/2021 TIME OF SERVICE: 01:51 PM I had the sincere pleasure of chatting with and Mrs. Kinney today on our virtual platform. They were on the way home from their visits with some other faculty and I was able to interact with him on our telemedicine platform. They were not able to access a video system at the time. In brief, we reviewed the findings and thoughts of my colleagues who have assessed Mr. Kinney. I have also independently reviewed images from recent provocative heart study and echo and I will be likely reaching out to the patient's Cardiology team to confirm that they are clearing him for tracheal resection. The patient and are now excited about the possibility of a tracheal resection and reconstruction. The CT scan suggested an A-frame type deformity and laryngoscopy suggests that this process starts at approximately tracheal ring 2. The location of this stenosis should keep us out of the mediastinum. The patient and his fully understand the risks, benefits, and alternatives, but the patient feels that it is time for him to undergo this repair. He, however, is stable right now and wishes to hold off proceeding until April after a few family trips and will contact my office should his conditions worsen even in the slightest. As long as he is stable, I suspect that we can wait, but I will reach out to his Cardiology team in the meantime and make sure that he has clearance from them to proceed to tracheal resection. CAROL DOC: [id number] This note was partially generated using an outside german professor service, and there may be some incorrect words, spellings, phrases, and punctuation that were not noted in checking the note before saving. [facility] documented as of this encounter (statuses as of 02/18/2022) [facility] History of Past illness Narrative* Problem Noted Date Resolved Date Upper GI bleed 10/15/2017 10/18/2017 Overview: 10/14/2017: early evening noted to have increased blood drainage from OGT. 10/16/2017: Heparin restarted at 1200 with no further episodes of bleeding. Pseudomonas aeruginosa infection 10/09/2017 11/14/2017 Overview: Pre admission leukocytosis (all cultures from OSH NGTD). Had previously been on meropenem and vanco. Off Abx since 10/10/17. C.Diff negative on 10/14/17, one BC + for s. epidermis from 10/19 (likely contaminant), 2nd BC from 10/19 NGTD. ID saw pt 10/12 but no superimposed infection suspected so no antibiotics started. A/P: WBC 12.91, down from 14.44. BAL 2/9 + Pseudomonas aeruginosa. Cefepime 7 day course completed. ID signed off. Continue to monitor for s/s of infection. Symptomatic hypotension 10/09/2017 10/14/19 Overview: 10/09/2017: requiring NE to prevent hypotension. 10/10/2017: Changed to melchor to decrease beta effect. Anemic. Tx w PRBC. A/P Low dose neosyn. Wean as tolerated for MAP > 65 mmHg documented as of this encounter (statuses as of 03/11/2022) [facility] History of Past illness Narrative* Problem Noted Date Resolved Date Upper GI bleed 10/15/2017 10/18/2017 Overview: 10/14/2017: early evening noted to have increased blood drainage from OGT. 10/16/2017: Heparin restarted at 1200 with no further episodes of bleeding. Pseudomonas aeruginosa infection 10/09/2017 11/14/2017 Overview: Pre admission leukocytosis (all cultures from OSH NGTD). Had previously been on meropenem and vanco. Off Abx since 10/10/17. C.Diff negative on 10/14/17, one BC + for s. epidermis from 10/19 (likely contaminant), 2nd BC from 10/19 NGTD. ID saw pt 10/12 but no superimposed infection suspected so no antibiotics started. A/P: WBC 12.91, down from 14.44. BAL 2/9 + Pseudomonas aeruginosa. Cefepime 7 day course completed. ID signed off. Continue to monitor for s/s of infection. Symptomatic hypotension 10/09/2017 10/14/19 Overview: 10/09/2017: requiring NE to prevent hypotension. 10/10/2017: Changed to melchor to decrease beta effect. Anemic. Tx w PRBC. A/P Low dose neosyn. Wean as tolerated for MAP > 65 mmHg documented as of this encounter (statuses as of 03/15/2022) [facility] History of Past illness Narrative* Problem Noted Date Resolved Date Upper GI bleed 10/15/2017 10/18/2017 Overview: 10/14/2017: early evening noted to have increased blood drainage from OGT. 10/16/2017: Heparin restarted at 1200 with no further episodes of bleeding. Pseudomonas aeruginosa infection 10/09/2017 11/14/2017 Overview: Pre admission leukocytosis (all cultures from OSH NGTD). Had previously been on meropenem and vanco. Off Abx since 10/10/17. C.Diff negative on 10/14/17, one BC + for s. epidermis from 10/19 (likely contaminant), 2nd BC from 10/19 NGTD. ID saw pt 10/12 but no superimposed infection suspected so no antibiotics started. A/P: WBC 12.91, down from 14.44. BAL 2/9 + Pseudomonas aeruginosa. Cefepime 7 day course completed. ID signed off. Continue to monitor for s/s of infection. Symptomatic hypotension 10/09/2017 10/14/19 Overview: 10/09/2017: requiring NE to prevent hypotension. 10/10/2017: Changed to melchor to decrease beta effect. Anemic. Tx w PRBC. A/P Low dose neosyn. Wean as tolerated for MAP > 65 mmHg documented as of this encounter (statuses as of 03/15/2022) [facility] History of Past illness Narrative* Problem Noted Date Resolved Date Upper GI bleed 10/15/2017 10/18/2017 Overview: 10/14/2017: early evening noted to have increased blood drainage from OGT. 10/16/2017: Heparin restarted at 1200 with no further episodes of bleeding. Pseudomonas aeruginosa infection 10/09/2017 11/14/2017 Overview: Pre admission leukocytosis (all cultures from OSH NGTD). Had previously been on meropenem and vanco. Off Abx since 10/10/17. C.Diff negative on 10/14/17, one BC + for s. epidermis from 10/19 (likely contaminant), 2nd BC from 10/19 NGTD. ID saw pt 10/12 but no superimposed infection suspected so no antibiotics started. A/P: WBC 12.91, down from 14.44. BAL 2/9 + Pseudomonas aeruginosa. Cefepime 7 day course completed. ID signed off. Continue to monitor for s/s of infection. Symptomatic hypotension 10/09/2017 10/14/19 Overview: 10/09/2017: requiring NE to prevent hypotension. 10/10/2017: Changed to melchor to decrease beta effect. Anemic. Tx w PRBC. A/P Low dose neosyn. Wean as tolerated for MAP > 65 mmHg documented as of this encounter (statuses as of 03/22/2022) [facility] History of Past illness Narrative* Problem Noted Date Resolved Date Upper GI bleed 10/15/2017 10/18/2017 Overview: 10/14/2017: early evening noted to have increased blood drainage from OGT. 10/16/2017: Heparin restarted at 1200 with no further episodes of bleeding. Pseudomonas aeruginosa infection 10/09/2017 11/14/2017 Overview: Pre admission leukocytosis (all cultures from OSH NGTD). Had previously been on meropenem and vanco. Off Abx since 10/10/17. C.Diff negative on 10/14/17, one BC + for s. epidermis from 10/19 (likely contaminant), 2nd BC from 10/19 NGTD. ID saw pt 10/12 but no superimposed infection suspected so no antibiotics started. A/P: WBC 12.91, down from 14.44. BAL 2/9 + Pseudomonas aeruginosa. Cefepime 7 day course completed. ID signed off. Continue to monitor for s/s of infection. Symptomatic hypotension 10/09/2017 10/14/19 Overview: 10/09/2017: requiring NE to prevent hypotension. 10/10/2017: Changed to melchor to decrease beta effect. Anemic. Tx w PRBC. A/P Low dose neosyn. Wean as tolerated for MAP > 65 mmHg documented as of this encounter (statuses as of 04/26/2022) [facility] [facility] History of Past illness Narrative* Problem Noted Date Resolved Date Upper GI bleed 10/15/2017 10/18/2017 Overview: 10/14/2017: early evening noted to have increased blood drainage from OGT. 10/16/2017: Heparin restarted at 1200 with no further episodes of bleeding. Pseudomonas aeruginosa infection 10/09/2017 11/14/2017 Overview: Pre admission leukocytosis (all cultures from OSH NGTD). Had previously been on meropenem and vanco. Off Abx since 10/10/17. C.Diff negative on 10/14/17, one BC + for s. epidermis from 10/19 (likely contaminant), 2nd BC from 10/19 NGTD. ID saw pt 10/12 but no superimposed infection suspected so no antibiotics started. A/P: WBC 12.91, down from 14.44. BAL 2/9 + Pseudomonas aeruginosa. Cefepime 7 day course completed. ID signed off. Continue to monitor for s/s of infection. Symptomatic hypotension 10/09/2017 10/14/19 Overview: 10/09/2017: requiring NE to prevent hypotension. 10/10/2017: Changed to melchor to decrease beta effect. Anemic. Tx w PRBC. A/P Low dose neosyn. Wean as tolerated for MAP > 65 mmHg documented as of this encounter (statuses as of 07/27/2022) [facility]01-21-2018 History of Past illness Narrative* Problem Noted Date Resolved Date Upper GI bleed 10/15/2017 10/18/2017 Overview: 10/14/2017: early evening noted to have increased blood drainage from OGT. 10/16/2017: Heparin restarted at 1200 with no further episodes of bleeding. Pseudomonas aeruginosa infection 10/09/2017 11/14/2017 Overview: Pre admission leukocytosis (all cultures from OSH NGTD). Had previously been on meropenem and vanco. Off Abx since 10/10/17. C.Diff negative on 10/14/17, one BC + for s. epidermis from 10/19 (likely contaminant), 2nd BC from 10/19 NGTD. ID saw pt 10/12 but no superimposed infection suspected so no antibiotics started. A/P: WBC 12.91, down from 14.44. BAL 2/9 + Pseudomonas aeruginosa. Cefepime 7 day course completed. ID signed off. Continue to monitor for s/s of infection. Symptomatic hypotension 10/09/2017 10/14/19 Overview: 10/09/2017: requiring NE to prevent hypotension. 10/10/2017: Changed to melchor to decrease beta effect. Anemic. Tx w PRBC. A/P Low dose neosyn. Wean as tolerated for MAP > 65 mmHg documented as of this encounter (statuses as of 08/16/2022) [facility]01-21-2018 History of Past illness Narrative* Problem Noted Date Resolved Date Upper GI bleed 10/15/2017 10/18/2017 Overview: 10/14/2017: early evening noted to have increased blood drainage from OGT. 10/16/2017: Heparin restarted at 1200 with no further episodes of bleeding. Pseudomonas aeruginosa infection 10/09/2017 11/14/2017 Overview: Pre admission leukocytosis (all cultures from OSH NGTD). Had previously been on meropenem and vanco. Off Abx since 10/10/17. C.Diff negative on 10/14/17, one BC + for s. epidermis from 10/19 (likely contaminant), 2nd BC from 10/19 NGTD. ID saw pt 10/12 but no superimposed infection suspected so no antibiotics started. A/P: WBC 12.91, down from 14.44. BAL 2/9 + Pseudomonas aeruginosa. Cefepime 7 day course completed. ID signed off. Continue to monitor for s/s of infection. Symptomatic hypotension 10/09/2017 10/14/19 Overview: 10/09/2017: requiring NE to prevent hypotension. 10/10/2017: Changed to melchor to decrease beta effect. Anemic. Tx w PRBC. A/P Low dose neosyn. Wean as tolerated for MAP > 65 mmHg documented as of this encounter (statuses as of 09/28/2022) [facility]01-21-[facility] History of Past illness Narrative* Problem Noted Date Resolved Date Upper GI bleed 10/15/2017 10/18/2017 Overview: 10/14/2017: early evening noted to have increased blood drainage from OGT. 10/16/2017: Heparin restarted at 1200 with no further episodes of bleeding. Pseudomonas aeruginosa infection 10/09/2017 11/14/2017 Overview: Pre admission leukocytosis (all cultures from OSH NGTD). Had previously been on meropenem and vanco. Off Abx since 10/10/17. C.Diff negative on 10/14/17, one BC + for s. epidermis from 10/19 (likely contaminant), 2nd BC from 10/19 NGTD. ID saw pt 10/12 but no superimposed infection suspected so no antibiotics started. A/P: WBC 12.91, down from 14.44. BAL 2/9 + Pseudomonas aeruginosa. Cefepime 7 day course completed. ID signed off. Continue to monitor for s/s of infection. Symptomatic hypotension 10/09/2017 10/14/19 18 Overview: 10/09/2017: requiring NE to prevent hypotension. 10/10/2017: Changed to melchor to decrease beta effect. Anemic. Tx w PRBC. A/P Low dose neosyn. Wean as tolerated for MAP > 65 mmHg documented as of this encounter (statuses as of 09/29/2022) [facility]01-21-[facility] History of Past illness Narrative* Problem Noted Date Resolved Date Upper GI bleed 10/15/2017 10/18/2017 Overview: 10/14/2017: early evening noted to have increased blood drainage from OGT. 10/16/2017: Heparin restarted at 1200 with no further episodes of bleeding. Pseudomonas aeruginosa infection 10/09/2017 11/14/2017 Overview: Pre admission leukocytosis (all cultures from OSH NGTD). Had previously been on meropenem and vanco. Off Abx since 10/10/17. C.Diff negative on 10/14/17, one BC + for s. epidermis from 10/19 (likely contaminant), 2nd BC from 10/19 NGTD. ID saw pt 10/12 but no superimposed infection suspected so no antibiotics started. A/P: WBC 12.91, down from 14.44. BAL 2/9 + Pseudomonas aeruginosa. Cefepime 7 day course completed. ID signed off. Continue to monitor for s/s of infection. Symptomatic hypotension 10/09/2017 10/14/19 Overview: 10/09/2017: requiring NE to prevent hypotension. 10/10/2017: Changed to melchor to decrease beta effect. Anemic. Tx w PRBC. A/P Low dose neosyn. Wean as tolerated for MAP > 65 mmHg documented as of this encounter (statuses as of 09/29/2022) [facility]01-21-[facility] History of Past illness Narrative* Problem Noted Date Resolved Date Upper GI bleed 10/15/2017 10/18/2017 Overview: 10/14/2017: early evening noted to have increased blood drainage from OGT. 10/16/2017: Heparin restarted at 1200 with no further episodes of bleeding. Pseudomonas aeruginosa infection 10/09/2017 11/14/2017 Overview: Pre admission leukocytosis (all cultures from OSH NGTD). Had previously been on meropenem and vanco. Off Abx since 10/10/17. C.Diff negative on 10/14/17, one BC + for s. epidermis from 10/19 (likely contaminant), 2nd BC from 10/19 NGTD. ID saw pt 10/12 but no superimposed infection suspected so no antibiotics started. A/P: WBC 12.91, down from 14.44. BAL 2/9 + Pseudomonas aeruginosa. Cefepime 7 day course completed. ID signed off. Continue to monitor for s/s of infection. Symptomatic hypotension 10/09/2017 10/14/19 Overview: 10/09/2017: requiring NE to prevent hypotension. 10/10/2017: Changed to melchor to decrease beta effect. Anemic. Tx w PRBC. A/P Low dose neosyn. Wean as tolerated for MAP > 65 mmHg documented as of this encounter (statuses as of 09/29/2022) [facility]01-21-2018 History of Past illness Narrative* Problem Noted Date Resolved Date Upper GI bleed 10/15/2017 10/18/2017 Overview: 10/14/2017: early evening noted to have increased blood drainage from OGT. 10/16/2017: Heparin restarted at 1200 with no further episodes of bleeding. Pseudomonas aeruginosa infection 10/09/2017 11/14/2017 Overview: Pre admission leukocytosis (all cultures from OSH NGTD). Had previously been on meropenem and vanco. Off Abx since 10/10/17. C.Diff negative on 10/14/17, one BC + for s. epidermis from 10/19 (likely contaminant), 2nd BC from 10/19 NGTD. ID saw pt 10/12 but no superimposed infection suspected so no antibiotics started. A/P: WBC 12.91, down from 14.44. BAL 2/9 + Pseudomonas aeruginosa. Cefepime 7 day course completed. ID signed off. Continue to monitor for s/s of infection. Symptomatic hypotension 10/09/2017 10/14/19 Overview: 10/09/2017: requiring NE to prevent hypotension. 10/10/2017: Changed to melchor to decrease beta effect. Anemic. Tx w PRBC. A/P Low dose neosyn. Wean as tolerated for MAP > 65 mmHg documented as of this encounter (statuses as of 09/29/2022) [facility]01-21-[facility] History of Past illness Narrative* Problem Noted Date Resolved Date Upper GI bleed 10/15/2017 10/18/2017 Overview: 10/14/2017: early evening noted to have increased blood drainage from OGT. 10/16/2017: Heparin restarted at 1200 with no further episodes of bleeding. Pseudomonas aeruginosa infection 10/09/2017 11/14/2017 Overview: Pre admission leukocytosis (all cultures from OSH NGTD). Had previously been on meropenem and vanco. Off Abx since 10/10/17. C.Diff negative on 10/14/17, one BC + for s. epidermis from 10/19 (likely contaminant), 2nd BC from 10/19 NGTD. ID saw pt 10/12 but no superimposed infection suspected so no antibiotics started. A/P: WBC 12.91, down from 14.44. BAL 2/9 + Pseudomonas aeruginosa. Cefepime 7 day course completed. ID signed off. Continue to monitor for s/s of infection. Symptomatic hypotension 10/09/2017 10/14/19 Overview: 10/09/2017: requiring NE to prevent hypotension. 10/10/2017: Changed to melchor to decrease beta effect. Anemic. Tx w PRBC. A/P Low dose neosyn. Wean as tolerated for MAP > 65 mmHg documented as of this encounter (statuses as of 10/04/2022) [facility]01-21-[facility] History of Past illness Narrative* Problem Noted Date Resolved Date Upper GI bleed 10/15/2017 10/18/2017 Overview: 10/14/2017: early evening noted to have increased blood drainage from OGT. 10/16/2017: Heparin restarted at 1200 with no further episodes of bleeding. Pseudomonas aeruginosa infection 10/09/2017 11/14/2017 Overview: Pre admission leukocytosis (all cultures from OSH NGTD). Had previously been on meropenem and vanco. Off Abx since 10/10/17. C.Diff negative on 10/14/17, one BC + for s. epidermis from 10/19 (likely contaminant), 2nd BC from 10/19 NGTD. ID saw pt 10/12 but no superimposed infection suspected so no antibiotics started. A/P: WBC 12.91, down from 14.44. BAL 2/9 + Pseudomonas aeruginosa. Cefepime 7 day course completed. ID signed off. Continue to monitor for s/s of infection. Symptomatic hypotension 10/09/2017 10/14/19 Overview: 10/09/2017: requiring NE to prevent hypotension. 10/10/2017: Changed to melchor to decrease beta effect. Anemic. Tx w PRBC. A/P Low dose neosyn. Wean as tolerated for MAP > 65 mmHg documented as of this encounter (statuses as of 10/04/2022) [facility]01-21-2018 History of Past illness Narrative* Problem Noted Date Resolved Date Upper GI bleed 10/15/2017 10/18/2017 Overview: 10/14/2017: early evening noted to have increased blood drainage from OGT. 10/16/2017: Heparin restarted at 1200 with no further episodes of bleeding. Pseudomonas aeruginosa infection 10/09/2017 11/14/2017 Overview: Pre admission leukocytosis (all cultures from OSH NGTD). Had previously been on meropenem and vanco. Off Abx since 10/10/17. C.Diff negative on 10/14/17, one BC + for s. epidermis from 10/19 (likely contaminant), 2nd BC from 10/19 NGTD. ID saw pt 10/12 but no superimposed infection suspected so no antibiotics started. A/P: WBC 12.91, down from 14.44. BAL 2/9 + Pseudomonas aeruginosa. Cefepime 7 day course completed. ID signed off. Continue to monitor for s/s of infection. Symptomatic hypotension 10/09/2017 10/14/19 Overview: 10/09/2017: requiring NE to prevent hypotension. 10/10/2017: Changed to melchor to decrease beta effect. Anemic. Tx w PRBC. A/P Low dose neosyn. Wean as tolerated for MAP > 65 mmHg documented as of this encounter (statuses as of 10/17/2022) [facility]01-21-2018 History of Past illness Narrative* Problem Noted Date Resolved Date Upper GI bleed 10/15/2017 10/18/2017 Overview: 10/14/2017: early evening noted to have increased blood drainage from OGT. 10/16/2017: Heparin restarted at 1200 with no further episodes of bleeding. Pseudomonas aeruginosa infection 10/09/2017 11/14/2017 Overview: Pre admission leukocytosis (all cultures from OSH NGTD). Had previously been on meropenem and vanco. Off Abx since 10/10/17. C.Diff negative on 10/14/17, one BC + for s. epidermis from 10/19 (likely contaminant), 2nd BC from 10/19 NGTD. ID saw pt 10/12 but no superimposed infection suspected so no antibiotics started. A/P: WBC 12.91, down from 14.44. BAL 2/9 + Pseudomonas aeruginosa. Cefepime 7 day course completed. ID signed off. Continue to monitor for s/s of infection. Symptomatic hypotension 10/09/2017 10/14/19 Overview: 10/09/2017: requiring NE to prevent hypotension. 10/10/2017: Changed to melchor to decrease beta effect. Anemic. Tx w PRBC. A/P Low dose neosyn. Wean as tolerated for MAP > 65 mmHg documented as of this encounter (statuses as of 03/23/2023) [facility]01-21-2018 History of Past illness Narrative* Problem Noted Date Resolved Date Upper GI bleed 10/15/2017 10/18/2017 Overview: 10/14/2017: early evening noted to have increased blood drainage from OGT. 10/16/2017: Heparin restarted at 1200 with no further episodes of bleeding. Pseudomonas aeruginosa infection 10/09/2017 11/14/2017 Overview: Pre admission leukocytosis (all cultures from OSH NGTD). Had previously been on meropenem and vanco. Off Abx since 10/10/17. C.Diff negative on 10/14/17, one BC + for s. epidermis from 10/19 (likely contaminant), 2nd BC from 10/19 NGTD. ID saw pt 10/12 but no superimposed infection suspected so no antibiotics started. A/P: WBC 12.91, down from 14.44. BAL 2/ + Pseudomonas aeruginosa. Cefepime 7 day course completed. ID signed off. Continue to monitor for s/s of infection. Symptomatic hypotension 10/09/2017 10/14/19 Overview: 10/09/2017: requiring NE to prevent hypotension. 10/10/2017: Changed to melchor to decrease beta effect. Anemic. Tx w PRBC. A/P Low dose neosyn. Wean as tolerated for MAP > 65 mmHg documented as of this encounter (statuses as of 03/30/2023) [facility]01-21-2018 History of Past illness Narrative* Problem Noted Date Diagnosed Date Resolved Date Upper GI bleed 10/15/2017 10/18/2017 Overview: 10/14/2017: early evening noted to have increased blood drainage from OGT. 10/16/2017: Heparin restarted at 1200 with no further episodes of bleeding. Pseudomonas aeruginosa infection 10/09/2017 11/14/2017 Overview: Pre admission leukocytosis (all cultures from OSH NGTD). Had previously been on meropenem and vanco. Off Abx since 10/10/17. C.Diff negative on 10/14/17, one BC + for s. epidermis from 10/19 (likely contaminant), 2nd BC from 10/19 NGTD. ID saw pt 10/12 but no superimposed infection suspected so no antibiotics started. A/P: WBC 12.91, down from 14.44. BAL 2/9 + Pseudomonas aeruginosa. Cefepime 7 day course completed. ID signed off. Continue to monitor for s/s of infection. Symptomatic hypotension 10/09/201709/26 Overview: 10/09/2017: requiring NE to prevent hypotension. 10/10/2017: Changed to melchor to decrease beta effect. Anemic. Tx w PRBC. A/P Low dose neosyn. Wean as tolerated for MAP > 65 mmHg documented as of this encounter (statuses as of 04/03/2023) [facility]01-21-2018 History of Past illness Narrative* Problem Noted Date Diagnosed Date Resolved Date Upper GI bleed 10/15/2017 10/18/2017 Overview: 10/14/2017: early evening noted to have increased blood drainage from OGT. 10/16/2017: Heparin restarted at 1200 with no further episodes of bleeding. Malnutrition of mild degree 10/11/2017 04/21/2023 Overview: A/P: Tolerating TF at goal rate at 60 mL. Pseudomonas aeruginosa infection 10/09/2017 11/14/2017 Overview: Pre admission leukocytosis (all cultures from OSH NGTD). Had previously been on meropenem and vanco. Off Abx since 10/10/17. C.Diff negative on 10/14/17, one BC + for s. epidermis from 10/19 (likely contaminant), 2nd BC from 10/19 NGTD. ID saw pt 10/12 but no superimposed infection suspected so no antibiotics started. A/P: WBC 12.91, down from 14.44. BAL 2/9 + Pseudomonas aeruginosa. Cefepime 7 day course completed. ID signed off. Continue to monitor for s/s of infection. Symptomatic hypotension 10/09/201709/26 Overview: 10/09/2017: requiring NE to prevent hypotension. 10/10/2017: Changed to melchor to decrease beta effect. Anemic. Tx w PRBC. A/P Low dose neosyn. Wean as tolerated for MAP > 65 mmHg documented as of this encounter (statuses as of 04/21/2023) [facility]01-21-2018 History of Past illness Narrative* Problem Noted Date Diagnosed Date Resolved Date Upper GI bleed 10/15/2017 10/18/2017 Overview: 10/14/2017: early evening noted to have increased blood drainage from OGT. 10/16/2017: Heparin restarted at 1200 with no further episodes of bleeding. Malnutrition of mild degree 10/11/2017 04/21/2023 Overview: A/P: Tolerating TF at goal rate at 60 mL. Pseudomonas aeruginosa infection 10/09/2017 11/14/2017 Overview: Pre admission leukocytosis (all cultures from OSH NGTD). Had previously been on meropenem and vanco. Off Abx since 10/10/17. C.Diff negative on 10/14/17, one BC + for s. epidermis from 10/19 (likely contaminant), 2nd BC from 10/19 NGTD. ID saw pt 10/12 but no superimposed infection suspected so no antibiotics started. A/P: WBC 12.91, down from 14.44. BAL 11/03 + Pseudomonas aeruginosa. Cefepime 7 day course completed. ID signed off. Continue to monitor for s/s of infection. Symptomatic hypotension 10/09/201709/26 Overview: 10/09/2017: requiring NE to prevent hypotension. 10/10/2017: Changed to melchor to decrease beta effect. Anemic. Tx w PRBC. A/P Low dose neosyn. Wean as tolerated for MAP > 65 mmHg documented as of this encounter (statuses as of 08/30/2023) [facility]01-21-2018 History of Past illness Narrative* Problem Noted Date Diagnosed Date Resolved Date Upper GI bleed 10/15/2017 10/18/2017 Overview: 10/14/2017: early evening noted to have increased blood drainage from OGT. 10/16/2017: Heparin restarted at 1200 with no further episodes of bleeding. Malnutrition of mild degree 10/11/2017 04/21/2023 Overview: A/P: Tolerating TF at goal rate at 60 mL. Pseudomonas aeruginosa infection 10/09/2017 11/14/2017 Overview: Pre admission leukocytosis (all cultures from OSH NGTD). Had previously been on meropenem and vanco. Off Abx since 10/10/17. C.Diff negative on 10/14/17, one BC + for s. epidermis from 10/19 (likely contaminant), 2nd BC from 10/19 NGTD. ID saw pt 10/12 but no superimposed infection suspected so no antibiotics started. A/P: WBC 12.91, down from 14.44. BAL 11/03 + Pseudomonas aeruginosa. Cefepime 7 day course completed. ID signed off. Continue to monitor for s/s of infection. Symptomatic hypotension 10/09/201709/26 Overview: 10/09/2017: requiring NE to prevent hypotension. 10/10/2017: Changed to melchor to decrease beta effect. Anemic. Tx w PRBC. A/P Low dose neosyn. Wean as tolerated for MAP > 65 mmHg documented as of this encounter (statuses as of 09/01/2023) [facility]01-01-2018 History of Present illness Narrative* Mr Kinney had open heart surgery in Sep 2017. He initially did well and on the day of discharge had VT VF arrest. This was then followed by long course that included cardiac ablation, MV, tracheostomy. He was in [place] [facility] and then SNF for several months. He was home in March 2018. He noted that around the time he should have begun to feel improvement he was short of breath. He was regaining strength in limbs but SOB persisted with any exertion. He was then worked up SOB and it was found he hassome tracheal issue which was corrected but the SOB persisted. He ultimately ended up seeing Dr. Clark who found elevated right HD. * Other PMH CVA with aphonia (post arrest), trigeminal neuralgia, pulmonary HTN, GERD, Has ICD/PPM. * Both Trach and PEG are removed. * He is well appearing, He does have slow speech. He is able to walk slowly. He does not currently use any CPAP but was told he does have BETTY and he should - he is scheduled for another sleep study at end of March. * Notes from OSH state he had an elevated left HD and then it reports elevated right HD. (Images havebeen requested) * Current symptoms with breathing: shortness of breath with exertion, unable to lie flat and breath, unable to bend over and breath, [id number] Work Phone: Chief complaint Narrative - ReportedPatient came in today accompanied by his for diaphragm evaluation. Shortness of breath [id number] Work Phone: Evaluation note* Diagnosis Tracheal stenosis- Primary Other diseases of trachea and bronchus ALEXANDER (dyspnea on exertion) Other dyspnea and respiratory abnormality Obesity, Class I, BMI 30-34.9 Obesity, unspecified H/O: stroke Transient ischemic attack (TIA), and cerebral infarction without residual deficits Complex care coordination Diaphragm paralysis Disorders of diaphragm documented in this encounter [facility] note* Diagnosis Cerebrovascular accident (CVA), unspecified mechanism (HCC)- Primary Odynophagia Dysphagia, unspecified Tracheal stenosis Other diseases of trachea and bronchus Tongue fasciculation Abnormal involuntary movements Tenderness of neck SOB (shortness of breath) Shortness of breath documented in this encounter [facility] note* Diagnosis Oropharyngeal dysphagia- Primary Dysphagia, oropharyngeal phase H/O: stroke Transient ischemic attack (TIA), and cerebral infarction without residual deficits Tracheal stenosis Other diseases of trachea and bronchus [facility] Diagnosis Tracheal stenosis- Primary Other diseases of trachea and bronchus [facility]* Diagnosis Tracheal stenosis- Primary Other diseases of trachea and bronchus ALEXANDER (dyspnea on exertion) Other dyspnea and respiratory abnormality [facility]* Diagnosis Odynophagia Dysphagia, unspecified documented in this encounter [facility] note* Diagnosis Disease of lung- Primary Other diseases of lung, not elsewhere classified documented in this encounter [facility] note* Diagnosis Chronic obstructive pulmonary disease, unspecified COPD type (HCC)- Primary documented in this encounter [facility] note* Diagnosis Syncope and collapse- Primary Cough syncope Cough Other drug-induced secondary parkinsonism (HCC) [facility] Diagnosis Syncope and collapse documented in this encounter [facility] note* Diagnosis Primary neuroendocrine tumor of pancreas- Primary documented in this encounter [facility] note* Diagnosis Syncope and collapse- Primary Parkinsonism, unspecified Parkinsonism type Cerebrovascular accident (CVA), unspecified mechanism (HCC) documented in this encounter [facility] note* Diagnosis Chronic pancreatitis, unspecified pancreatitis type (HCC)- Primary documented in this encounter [facility] note* Diagnosis Primary neuroendocrine tumor of pancreas documented in this encounter [facility] note* Diagnosis Cerebrovascular accident (CVA), unspecified mechanism (HCC)- Primary Gait disturbance Abnormality of gait Visual field loss following cerebrovascular accident documented in this encounter [facility] for referral (narrative)* Diagnostic Procedure Only (Routine) - Closed Specialty Diagnoses / Procedures Referred By [facility] Referred To Contact XR IMAGING Diagnoses Odynophagia Procedures XR MODIFIED BARIUM SWALLOW W SPEECH THERAPY RADIOLOGIC EXAM SWALLOW FUNCTION CONTRAST STUDY [address] [place] [id number] Xr Imaging Referral ID Status Reason Start Date Expiration Date V isits Requested Visits Authorized [id number] Closed Auto-Generate d Referral 07/27/2022 08/26/2023 1 1 [facility] for referral (narrative)* Consultation (Routine) - Pending Review Specialty Diagnoses / Procedures Referred By Daisy t Referred To Contact Optometry Diagnoses Visual field loss following cerebrovascular accident Procedures PA OFFICE/OUTPATIENT [facility] MINUTES Steff Muhammad MD [address] [facility] [address] [place] [address] Eloy Morin, OD [address] [place] [address] Referral ID Status Reason Start Date Expiration Date Visits Requested Visits Authorized [id number] Pending Review Specialty Services Required 09/28/2023 09/27/2024 1 1 [facility] Summary Purpose Family History Cerebrovascular Accident Status:Active Comment s:Negative Family History Of. Colon Cancer Status:Active Coronary Artery Disease Status:Active Comments :Mother. Diabetes Mellitus Type II Status:Active Commen ts:Family Members In General. Hypertension Status:Active Comments:Mother. Cerebrovascular Accident Status:Active Comment s:Negative Family History Of. Colon Cancer Status:Active Coronary Artery Disease Status:Active Comments :Mother. Diabetes Mellitus Type II Status:Active Commen ts:Family Members In General. Hypertension Status:Active Comments:Mother. Cerebrovascular Accident Status:Active Comment s:Negative Family History Of. Colon Cancer Status:Active Coronary Artery Disease Status:Active Comments :Mother. Diabetes Mellitus Type II Status:Active Commen ts:Family Members In General. Hypertension Status:Active Comments:Mother. Advance Directives Documents on File Type Date Recorded Patient Director Of Housing Expl anation Advance Directive(s) 06/14/2021 1:48 PM Advance Directive(s) 04/13/2021 12:51 PM Advance Directive(s) 10/08/2017 3:33 PM Advance Directive(s) 03/23/2016 7:12 AM Advance Directive(s) 03/16/2016 12:30 PM Reason for Referral Specialty Diagnoses / Procedures Referred By Daisy t Referred To Contact Neurology Diagnoses Cerebrovascular accident (CVA), unspecified mechanism (HCC) Procedures CONSULT TO NEUROLOGY OFFICE/OUTPATIENT [facility] HIGH MDM 60-74 MINUTES [address] [place] [address] Referral ID Status Reason Start Date Expiration Date Visits Requested Visits Authorized [id number] Authorized PCP Requested Referral 07/27/2022 07/27/2023 1 1 Specialty Diagnoses / Procedures Referred By Daisy t Referred To Contact XR IMAGING Diagnoses Odynophagia Procedures XR MODIFIED BARIUM SWALLOW W SPEECH THERAPY RADIOLOGIC EXAM SWALLOW FUNCTION CONTRAST STUDY [address] [place] [address] Xr Imaging Referral ID Status Reason Start Date Expiration Date Visits Requested Visits Authorized [id number] Pending Review Auto-Generat ed Referral 07/27/2022 08/26/2023 1 1 Specialty Diagnoses / Procedures Referred By Daisy t Referred To Contact Radiology Diagnoses Syncope and collapse Procedures MR brain wo contrast Steff Muhammad MD [address] [place] [address] Referral ID Status Reason Start Date Expiration Date V isits Requested Visits Authorized [id number] Pending Review 04/12/2023 10/09/2023 1 1 Specialty Diagnoses / Procedures Referred By Contac t Referred To Contact Diagnoses Syncope and collapse Procedures EEG extended more than 1 hour Steff Muhammad MD [address] [place] [address] Referral ID Status Reason Start Date Expiration Date V isits Requested Visits Authorized [id number] Incomplete 04/12/2023 10/09/2023 1 1 Specialty Diagnoses / Procedures Referred By Contac t Referred To Contact Neurology Diagnoses Syncope and collapse Procedures EEG extended more than 1 hour Steff Muhammad MD [address] [place] [address] Referral ID Status Reason Start Date Expiration Date Visits Re quested Visits Authorized [id number] Closed 04/12/2023 10/09/2023 1 1 Specialty Diagnoses / Procedures Referred By Contac t Referred To Contact CT IMAGING Diagnoses Primary neuroendocrine tumor of pancreas Procedures CT PANCREAS W IVCON CT ABDOMEN W/CONTRAST Amanda Adams MD [address] [place] [address] Ct Imaging Referral ID Status Reason Start Date Expiration Date Visits Requested Visits Authorized [id number] Pending Review Auto-Generat ed Referral 04/21/2023 05/20/2024 1 1 Specialty Diagnoses / Procedures Referred By Contac t Referred To Contact CT IMAGING Diagnoses Primary neuroendocrine tumor of pancreas Procedures CT PANCREAS W IVCON CT ABDOMEN W/CONTRAST Amanda Adams MD [id number] Imaging [place] [address] Referral ID Status Reason Start Date Expiration Date V isits Requested Visits Authorized [id number] Closed Auto-Generate d Referral 04/21/2023 05/20/2024 1 1 Additional Source Comments (unrecognized sect ion and content) No Status Records FoundNo Status Records FoundNo Status Records FoundNo Status Records FoundNo Status Records FoundNo Status Records FoundNo Status Records FoundNo Status Records FoundNo Status Records FoundNo Status Records FoundNo Status Records Found INFORMATION SOURCE (unrecogn ized section and content) DATE CREATED AUTHOR AUTHOR'S ORGANIZ ATION 05/15/2018 [facility] DATE CREATED AUTHOR AUTHOR'S ORGANIZ ATION 02/21/2021 [facility] DATE CREATED AUTHOR AUTHOR'S ORGANIZ ATION 03/15/2022 [facility] DATE CREATED AUTHOR AUTHOR'S ORGANIZ ATION 04/25/2022 [facility] DATE CREATED AUTHOR AUTHOR'S ORGANIZ ATION 11/29/2022 [facility] DATE CREATED AUTHOR AUTHOR'S ORGANIZ ATION 08/05/2023 [facility] DATE CREATED AUTHOR AUTHOR'S ORGANIZ ATION 09/17/2023 [facility] ([place]) DATE CREATED AUTHOR AUTHOR'S ORGANIZ ATION 09/26/2023 [facility] DATE CREATED AUTHOR AUTHOR'S ORGANIZ ATION 09/30/2023 [facility] DATE CREATED AUTHOR AUTHOR'S ORGANIZ ATION 09/30/2023 [facility] Source Comments (unrecognize d section and content) In the event this informatio n is protected by the Federal Confidentiality of Alcohol and Drug Abuse Patient Records regulations: The Federal rules restrict any use of the information to criminally investigate or prosecute any alcohol or drug abuse patient.[facility] the event this information is protected by the Federal Confidentiality of Alcohol and Drug Abuse Patient Records regulations: The Federal rules restrict any use of the information to criminally investigate or prosecute any alcohol or drug abuse patient.[facility] Hospital[facility] the event this information is protected by the Federal Confidentiality of Alcohol and Drug Abuse Patient Records regulations: The Federal rules restrict any use of the information to criminally investigate or prosecute any alcohol or drug abuse patient.[facility] Hospital[facility] the event this information is protected by the Federal Confidentiality of Alcohol and Drug Abuse Patient Records regulations: The Federal rules restrict any use of the information to criminally investigate or prosecute any alcohol or drug abuse patient.[facility] Hospital[facility] the event this information is protected by the Federal Confidentiality of Alcohol and Drug Abuse Patient Records regulations: The Federal rules restrict any use of the information to criminally investigate or prosecute any alcohol or drug abuse patient.[facility] Hospital[facility] the event this information is protected by the Federal Confidentiality of Alcohol and Drug Abuse Patient Records regulations: The Federal rules restrict any use of the information to criminally investigate or prosecute any alcohol or drug abuse patient.[facility] Hospital[facility] the event this information is protected by the Federal Confidentiality of Alcohol and Drug Abuse Patient Records regulations: The Federal rules restrict any use of the information to criminally investigate or prosecute any alcohol or drug abuse patient.[facility] Hospital[facility] the event this information is protected by the Federal Confidentiality of Alcohol and Drug Abuse Patient Records regulations: The Federal rules restrict any use of the information to criminally investigate or prosecute any alcohol or drug abuse patient.[facility] Hospital[facility] the event this information is protected by the Federal Confidentiality of Alcohol and Drug Abuse Patient Records regulations: The Federal rules restrict any use of the information to criminally investigate or prosecute any alcohol or drug abuse patient.[facility] Hospital[facility] the event this information is protected by the Federal Confidentiality of Alcohol and Drug Abuse Patient Records regulations: The Federal rules restrict any use of the information to criminally investigate or prosecute any alcohol or drug abuse patient.[facility] Hospital[facility] the event this information is protected by the Federal Confidentiality of Alcohol and Drug Abuse Patient Records regulations: The Federal rules restrict any use of the information to criminally investigate or prosecute any alcohol or drug abuse patient.[facility] Hospital[facility] the event this information is protected by the Federal Confidentiality of Alcohol and Drug Abuse Patient Records regulations: The Federal rules restrict any use of the information to criminally investigate or prosecute any alcohol or drug abuse patient.[facility] Hospital[facility] the event this information is protected by the Federal Confidentiality of Alcohol and Drug Abuse Patient Records regulations: The Federal rules restrict any use of the information to criminally investigate or prosecute any alcohol or drug abuse patient.[facility] Hospital[facility] the event this information is protected by the Federal Confidentiality of Alcohol and Drug Abuse Patient Records regulations: The Federal rules restrict any use of the information to criminally investigate or prosecute any alcohol or drug abuse patient.[facility] HospitalIn the event this information is protected by the Federal Confidentiality of Alcohol and Drug Abuse Patient Records regulations: The Federal rules restrict any use of the information to criminally investigate or prosecute any alcohol or drug abuse patient.[facility] HospitalIn the event this information is protected by the Federal Confidentiality of Alcohol and Drug Abuse Patient Records regulations: The Federal rules restrict any use of the information to criminally investigate or prosecute any alcohol or drug abuse patient.[facility] HospitalIn the event this information is protected by the Federal Confidentiality of Alcohol and Drug Abuse Patient Records regulations: The Federal rules restrict any use of the information to criminally investigate or prosecute any alcohol or drug abuse patient.[facility] HospitalIn the event this information is protected by the Federal Confidentiality of Alcohol and Drug Abuse Patient Records regulations: The Federal rules restrict any use of the information to criminally investigate or prosecute any alcohol or drug abuse patient.[facility] HospitalIn the event this information is protected by the Federal Confidentiality of Alcohol and Drug Abuse Patient Records regulations: The Federal rules restrict any use of the information to criminally investigate or prosecute any alcohol or drug abuse patient.[facility] HospitalIn the event this information is protected by the Federal Confidentiality of Alcohol and Drug Abuse Patient Records regulations: The Federal rules restrict any use of the information to criminally investigate or prosecute any alcohol or drug abuse patient.[facility] HospitalIn the event this information is protected by the Federal Confidentiality of Alcohol and Drug Abuse Patient Records regulations: The Federal rules restrict any use of the information to criminally investigate or prosecute any alcohol or drug abuse patient.[facility] HospitalIn the event this information is protected by the Federal Confidentiality of Alcohol and Drug Abuse Patient Records regulations: The Federal rules restrict any use of the information to criminally investigate or prosecute any alcohol or drug abuse patient.[facility] HospitalIn the event this information is protected by the Federal Confidentiality of Alcohol and Drug Abuse Patient Records regulations: The Federal rules restrict any use of the information to criminally investigate or prosecute any alcohol or drug abuse patient.[facility] HospitalIn the event this information is protected by the Federal Confidentiality of Alcohol and Drug Abuse Patient Records regulations: The Federal rules restrict any use of the information to criminally investigate or prosecute any alcohol or drug abuse patient.[facility] Reason for Visit (unrecogniz ed section and content) Reason Comments Recheck Reason Comments pre op bronch Reason Comments New Patient Sore throat for 1 mo nth Reason Comments Appointment PreOp Bronch Reason Comments Dysphagia Specialty Diagnoses / Procedures Referred By Daisy t Referred To Contact XR IMAGING Diagnoses Odynophagia Procedures XR MODIFIED BARIUM SWALLOW W SPEECH THERAPY RADIOLOGIC EXAM SWALLOW FUNCTION CONTRAST STUDY [address] [place] [address] Xr Imaging Referral ID Status Reason Start Date Expiration Date V isits Requested Visits Authorized [id number] Closed Auto-Generate d Referral 07/27/2022 08/26/2023 1 1 Reason Comments Spirometry Specialty Diagnoses / Procedures Referred By Contac t Referred To Contact [facility] Diagnoses Tracheal stenosis Procedures SIX MINUTE WALK CARDIOPULMONARY EXERCISE STRESS Sonu Riojas MD [address] [place] [address] [address] [place] [address] [place], [place] [id number] Referral ID Status Reason Start Date Expiration Date V isits Requested Visits Authorized [id number] Closed Auto-Generate d Referral 08/16/2022 09/15/2023 1 1 Specialty Diagnoses / Procedures Referred By Contac t Referred To Contact [facility] Diagnoses Tracheal stenosis Procedures SPIROMETRY WITH DILATOR IF OBSTRUCTED BRNCDILAT RSPSE SPMTRY PRE&POST-BRNCDILAT ADMN Sonu Riojas MD [address] [place] [address] Respiratory [place] [id number] Referral ID Status Reason Start Date Expiration Date V isits Requested Visits Authorized [id number] Closed Auto-Generate d Referral 08/16/2022 09/15/2023 1 1 Reason Comments Radio GI Main HB6 Specialty Diagnoses / Procedures Referred By Contac t Referred To Contact XR IMAGING Diagnoses Odynophagia Procedures XR MODIFIED BARIUM SWALLOW W SPEECH THERAPY RADIOLOGIC EXAM SWALLOW FUNCTION CONTRAST STUDY [address] [address] Xr Imaging Reason Comments Pulm Rehab Reason Comments Appointment Reason Comments Patient Question Patient called and wants to know, if device is MRI compatible. Please call her at [phone] Reason Comments Clinic Prep Reason Comments New Patient Syncope Specialty Diagnoses / Procedures Referred By Contac t Referred To Contact Neurology Diagnoses Syncope and collapse Cerebral infarction, unspecified (HCC) Orthostatic hypotension Procedures PA OFFICE/OUTPATIENT NEW MODERATE MDM 45-59 MINUTES Mark Johnson MD [address] [place] [address] [facility] Neuro [address] [place] [address] Referral ID Status Reason Start Date Expiration Date V isits Requested Visits Authorized [id number] Pending Review 03/24/2023 03/24/2024 1 1 Specialty Diagnoses / Procedures Referred By Contac t Referred To Contact Neurology Diagnoses Syncope and collapse Procedures EEG extended more than 1 hour Steff Muhammad MD [address] [facility] [address] [place] [address] Referral ID Status Reason Start Date Expiration Date Visits Re quested Visits Authorized [id number] Closed 04/12/2023 10/09/2023 1 1 Reason Comments Consult Reason Comments Follow-up Loss of Consciousness Results Reason Comments Lab Orders Reason Comments Radiology CT Specialty Diagnoses / Procedures Referred By Contac t Referred To Contact CT IMAGING Diagnoses Primary neuroendocrine tumor of pancreas Procedures CT PANCREAS W IVCON CT ABDOMEN W/CONTRAST Amanda Adams MD [address] [id number] Imaging [place] [address] Referral ID Status Reason Start Date Expiration Date V isits Requested Visits Authorized [id number] Closed Auto-Generate d Referral 04/21/2023 05/20/2024 1 1 Reason Comments Follow-up Loss of Consciousness Stroke Care Teams (unrecognized sec tion and content) Rn Recovery Relationship Specialty Start Date End Date Kaylin Hui [address] [facility] [place] [address] PCP - General Family Practice 04/13/21 Trey Richey [address] [place] [phone] Cardiology 05/14/18 Amanda Clark V [address] [place] [address] Referring Internal Medicine 06/26/20 Rn Recovery Relationship Specialty Start Date End Date Kaylin Hui [address] [facility] [place] [address] PCP - General Family Practice 04/13/21 Trey Richey [address] [place] [address] Cardiology 05/14/18 Amanda Clark V [address] [place] [address] Referring Internal Medicine 06/26/20 Rn Recovery Relationship Specialty Start Date End Date Kaylin Hui [address] [facility] [place] [address] PCP - General Family Practice 04/13/21 Trey Richey [address] [place] [address] Cardiology 05/14/18 Amanda Clark V [address] [place] [place] [address] Referring Internal Medicine 06/26/20 Rn Recovery Relationship Specialty Start Date End Date Kaylin Hui [address] [facility] [place] [address] PCP - General Family Medicine 04/13/21 Trey Richey [address] [place] [address] Cardiology 05/14/18 Amanda Clark V [address] [place] [address] Referring Internal Medicine 06/26/20 Rn Recovery Relationship Specialty Start Date End Date Kaylin Hui [address] [facility] [place] [address] PCP - General Family Medicine 04/13/21 Trey RicheyALL AVJeny [address] [place] [address] Cardiology 05/14/18 Amanda Clark V [address] [place] [place] [address] Referring Internal Medicine 06/26/20 Rn Recovery Relationship Specialty Start Date End Date Kaylin Hui [address] [facility] [place] [address] PCP - General Family Medicine 04/13/21 Trey Richey [address] [place] [address] Cardiology 05/14/18 Amanda Clark V [address] [place] [place] [address] Referring Internal Medicine 06/26/20 Rn Recovery Relationship Specialty Start Date End Date Kaylin Hui [address] [facility] [place] [address] PCP - General Family Medicine 04/13/21 Trey Richey [address] [place] [address] Cardiology 05/14/18 Amanda Clark V [address] [place] [address] Referring Internal Medicine 06/26/20 Rn Recovery Relationship Specialty Start Date End Date Kaylin Hui [address] [facility] [place] [address] PCP - General Family Medicine 04/13/21 Trey Richey [address] [place] [address] Cardiology 05/14/18 Amanda Clark V [address] [place] [address] Referring Internal Medicine 06/26/20 Rn Recovery Relationship Specialty Start Date End Date Kaylin Hui [address] [facility] [place] [address] PCP - General Family Medicine 04/13/21 Trey Richey [address] [place] [address] Cardiology 05/14/18 Amanda Clark V [address] [place] [address] Referring Internal Medicine 06/26/20 Rn Recovery Relationship Specialty Start Date End Date Kaylin Hui [address] [facility] [place] [address] PCP - General Family Medicine 04/13/21 Trey Richey [address] [place] [address] Cardiology 05/14/18 Amanda Clark V [address] [place] [address] Referring Internal Medicine 06/26/20 Rn Recovery Relationship Specialty Start Date End Date Kaylin Hui [address] [facility] [address] [place] [id number] PCP - General Family Medicine 04/13/21 Trey Richey [address] [place] [address] Cardiology 05/14/18 Amanda Clark V [address] [place] [phone] Referring Internal Medicine 06/26/20 Rn Recovery Relationship Specialty Start Date End Date Kaylin Hui PA-C [address] [place] [id number] PCP - General Physician Video Specialist 03/24/23 Rn Recovery Relationship Specialty Start Date End Date Kaylin Hui PA-C [address] [facility] [place] [address] PCP - General Physician Video Specialist 03/24/23 Rn Recovery Relationship Specialty Start Date End Date Kaylin Hui [address] [place] [address] PCP - General Family Medicine 04/13/21 Trey Richey [facility] [place] [phone] Cardiology 05/14/18 Amanda Clark V [address] [place] [place] [address] Referring Internal Medicine 06/26/20 Rn Recovery Relationship Specialty Start Date End Date Kaylin Hui PA-C [address] [place] [id number] PCP - General Physician Video Specialist 03/24/23 Rn Recovery Relationship Specialty Start Date End Date Kaylin Hui [address] [place] [phone] PCP - General Family Medicine 04/13/21 Trey Richey MD [address] [place], [place] [phone] Cardiology 05/14/18 Amanda Clark V [address] [place] [address] Referring Internal Medicine 06/26/20 Rn Recovery Relationship Specialty Start Date End Date Kaylin Hui [address] [facility] [address] [place] [phone] PCP - General Family Medicine 04/13/21 Trey Richey MD [address] [place], [place] [address] Cardiology 05/14/18 Amanda Clark V [address] [place] [address] Referring Internal Medicine 06/26/20 Rn Recovery Relationship Specialty Start Date End Date Kaylin Hui PA-C [address] [facility] [address] [place] [id number] PCP - General Physician Video Specialist 03/24/23 <item> Privacy Markings (unrecogniz ed section and content) Section Author: Nedra Mauro PROHIBITION ON REDISCLOSURE OF CONFIDENTIAL INFORMATION This notice accompanies a disclosure of information concerning a client made to you with the consent of such client. FOR RECORDS PERTAINING TO PATIENTS WHO ARE OR HAVE BEEN ENROLLED IN A CHEMICAL DEPENDENCY/SUBSTANCEABUSE PROGRAM, SOME INFORMATION MAY BE OMITTED. This clinical summary was aggregated from multiple sources. Caution should be exercised in using it in the provision of clinical care. This summary normalizes information from multiple sources, and as a consequence, information in this document may materially change the coding, format and clinical context of patient data. In addition, data may be omitted in some cases. CLINICAL DECISIONS SHOULD BE BASED ON THE PRIMARY CLINICAL RECORDS. [facility] [employer] [facility]. provides no warranty or guarantee of the accuracy or completeness of information in this document.
[2023-10-20 12:29] VITALS: BP 128/67; PULSE 55; RESP 16; TEMP 35.9; O2SAT 95; BMI 29.5
[2023-10-20] MEDS: Zoledronic Acid 5 MG 100 ML 300 MG IV (12:45)
[2023-10-20] MEDS: 0.9% NaCl Peripheral Flush Adult/Peds IV (12:45)
[2023-10-20 13:17] VITALS: BP 130/58; PULSE 55; RESP 16; TEMP 36.1; O2SAT 95
== END 2023-10-20 11:51 | disposition home or self-care (01) ==
LOC: MEDOUTP 11:51
PROVIDERS: PCP Physician Assistant; Referring Provider Internal Medicine Endocrinology, Diabetes & Metabolism; Visit Provider Internal Medicine Endocrinology, Diabetes & Metabolism
DX: M81.0 Age-related osteoporosis without current pathological fracture (principal)
CPT/HCPCS: 96365; A4216; J3489

== ENCOUNTER 2023-11-24 02:35 | Inpatient (IN) | payer MEDICARE, BC, SELFPAY ==
[2023-11-24] VITALS (11 sets, daily range): BP systolic 123–157; BP diastolic 66–81; PULSE 60–84; RESP 16–18; TEMP 36.6–37.6; O2SAT 92–98; BMI 30.3; BMI 30.2
--- OUTSIDE RECORDS SUMMARY | 2023-11-24 00:47 | XMS RPT_ITS | CCD ---
Author Name Unknown Address [id number] [place] [address] Organization [facility] Care Team Providers Care Char Filter Tank Tender Name Role Phone Unavailable Unavailable Unavailable Tavallaee, Greyson Unavailable Unavailable Tavallaee, Greyson Unavailable Unavailable Tavallaee, Greyson Unavailable Unavailable Tavallaee, Greyson Unavailable Unavailable DownsSophy soto L Unavailable Unavailable DownsSophy L Unavailable Unavailable [...] Unavail able Tavallaee, Greyson M Unavailable Unavailable DownsSophy L Unavailable Unavailable No Doctor Assigned, Nodr Unavailable Unavail able Tavallaee, Greyson M Unavailable Unavailable Tavallaee, Greyson M Unavailable Unavailable No Doctor Assigned, Nodr Unavailable Unavail able Unavailable Primary Care Provider Unavailabl e Trey Richey Unavailable Amanda Aguilar Unavailable Kaylin Hui Primary Care Provider Tavallaee, Greyson M Unavailable Unknown, Referring Provider Unavailable Unav ailable Trey Richey Unavailable Amanda Aguilar Unavailable Kaylin Hui Primary Care Provider Trey Richey Unavailable Amanda Aguilar Unavailable Hui, Kaylin J Primary Care Provider Unknown, Pcp Unavailable Unavailable Audrey Hernandez Unavailable Unavailable UNKNOWN, PCP Primary Care Unavailable DO AUDREY HERNANDEZ Attending Unavailab le Hui, Kaylin J Primary Care Provider Hui PA-C, Kaylin A Primary Care Provider Trey Richey MD Unavailable RAMESH DE LA PAZ DO Admitting Unavailable SPITTLE, RAMESH Primary Care Unavailable STEVETTLE RAMESH Attending Unavailable HUI, KAYLIN J Consulting Unavailable PROVIDER, UNKNOWN Consulting Unavailable HUI, KAYLIN J Consulting Unavailable SPITTLE RAMESH DO Admitting Unavailable SPITTLE RAMESH DO Primary Care Unavailable ERNIE DE LA PAZOLAS DO Attending Unavailable PROVIDER, UNKNOWN Consulting Unavailable MARCIO CARO DO Admitting Unavailable MARCIO CARO DO Primary Care Unavailable MARCIO CARO DO Attending Unavailable HUI, KAYLIN J Consulting Unavailable PROVIDER, UNKNOWN Consulting Unavailable HUI, KAYLIN J Consulting Unavailable HUI, KAYLIN J Attending Unavailable HUI, KAYLIN J Admitting Unavailable HUI, KAYLIN J Primary Care Unavailable PROVIDER, UNKNOWN Consulting Unavailable HUI, KAYLIN J Consulting Unavailable RIVERA, SAMUEL C Admitting Unavailable RIVERA SAMUEL C Primary Care Unavailable SAMUEL RIVERA C Attending Unavailable HUI, KAYLIN J Referring Unavailable PROVIDER, UNKNOWN Consulting Unavailable CHADWICK DALTON DO Admitting Unavailable CHADWICK DALTON DO Primary Care Unavailable CHADWICK DALTON DO Attending Unavailable HUI, KAYLIN J Consulting Unavailable HUI, KAYLIN J Referring Unavailable PROVIDER, UNKNOWN Consulting Unavailable Hui PA-C, Kaylin J Unavailable Hui PA-C, Kaylin J Unavailable [facility] Unavailable [facility] Unavailable [facility] Unavailable Dr. Justen Meza MD Unavailable Urologist Provider Unavailable Unavailable Neurology Provider Unavailable Unavailable Speech Therapy Provider Unavailable Unavaila ble Neuro-Surgery Provider Unavailable Unavailab le Physical Reuben José Unavailable General Surgery Provider Unavailable Unavail able Orthopedic Provider Unavailable Unavailable Loren BARRIOS, Dr. Erick Loomis Unavailable [facility] Unavailable ENT Provider Unavailable Unavailable Edis BARRIOS, Dr. Santana Unavailable Jb BARRIOS, Dr. Steff Paul Unavailable [phone] Cruz BARRIOS, Dr. Fatima Unavailable Andreea ROMERO, Dr. Daphnie Licea Unavailable [facility] Unavailable Raymundo RADIATION CONTROL WORKER, Nikkie Unavailable Nestor PARRA, Breanna Jaime Unavailable Fransico BARRIOS, Ronald Loomis Unavailable Bienvenido RADIATION CONTROL WORKER, Edna Fermin Unavailable Unavailable Gogoi (scribe), Hemanta Unavailable Unavaila ble Lg RADIATION CONTROL WORKER, Diane Unavailable Unavailable Deejay BARRIOS, Amanda Tavera Unavailable Jarrell ZAMBRANO, Alexa Unavailable Unavailable Miranda RADIATION CONTROL WORKER, Nida Unavailable Unavaila ble Fredrick RADIATION CONTROL WORKER, Lucia Unavailable Unavailable Stew GODOY, Gaby Tavera Unavailable Unavaila ble Marthey RADIATION CONTROL WORKER, Yolis Unavailable Unavailable Mutersbaugh RADIATION CONTROL WORKER, Cindy K Unavailable Unavai zoltan Nayak (Scribe), Alo Unavailable Unavailab le Castillo RADIATION CONTROL WORKER, Montserrat M Unavailable Unavailab le Amy RADIATION CONTROL WORKER, Gris Gonzalez Unavailable Unavailab shimon Nielson MA, Lucia Unavailable Unavailable Vess RADIATION CONTROL WORKER, Neilee L Unavailable Unavailable Wengerd RADIATION CONTROL WORKER, Krissy Unavailable Unavailabl e Jaky RADIATION CONTROL WORKER, Rox N Unavailable Unavaila ble Zau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, Judy Unavailable Unavailable Unavailable Unavailable AAMNDA ADAMS Referring Unavailable HUI, KAYLIN J Primary Care Unavailable AMANDA ADAMS Attending Unavailable AMANDA ADAMS Referring Unavailable HUI, KAYLIN J Primary Care Unavailable AMANDA ADAMS Referring Unavailable HUI, KAYLIN J Primary Care Unavailable AMANDA ADAMS Attending Unavailable HUI, KAYLIN J Primary Care Unavailable STEFF MUHAMMAD Attending Unavailable HUI, KAYLIN Primary Care Unavailable STEFF MUHAMMAD Attending Unavailable ROMAN, MARK Referring Unavailable BLANCO, KAYLIN Primary Care Unavailable STEFF MUHAMMAD Attending Unavailable STEFF MUHAMMAD Referring Unavailable BLANCO, KAYLIN Primary Care Unavailable STEFF MUHAMMAD Attending Unavailable [facility] Primary Care Unavailable Allergies Allergy Classification Reported Allergen(s) Allergy Type Date of Onset Reaction(s) Facility (20 sources) Lisinopril; Translations: [lisinopril] Drug Allergy 1 Cough [facility] (6 sources) Lisinopril Allergy to substance 9 Cough, Unknown [facility] NEGATED: Highlighted row has been ruled out! (1 source) 2 [employer] NEGATED: Highlighted row has been ruled out! (1 source) [employer] NEGATED: Highlighted row has been ruled out! (1 source) 2 [employer] NEGATED: Highlighted row has been ruled out! (1 source) [employer] NEGATED: Highlighted row has been ruled out! (1 source) 2 [employer] NEGATED: Highlighted row has been ruled out! (1 source) [employer] NEGATED: Highlighted row has been ruled out! (1 source) 2 [employer] [facility] NEGATED: Highlighted row has been ruled out! (1 source) [employer] [facility] NEGATED: Highlighted row has been ruled out! (1 source) 2 [employer] NEGATED: Highlighted row has been ruled out! (1 source) [employer] [facility] NEGATED: Highlighted row has been ruled out! (1 source) 2 [employer] [facility] NEGATED: Highlighted row has been ruled out! (1 source) [employer] NEGATED: Highlighted row has been ruled out! (1 source) [employer]; [employer] NEGATED: Highlighted row has been ruled out! (1 source) [employer]; [employer] Medications Current Medications Medication Drug Class(es) Dates [...] Problem Date Documented Date Episodic/Chronic Acute bronchitis (14 sources) Acute bronchitis; Translations: [Acute bronchitis, unspecified] [...] Time Vital Sign Value Performing Clinician Josh toribio 09-28-2023 13:40-0500 Body mass index (BMI) [Ratio] 29.65 kg/m2 Steff Muhammad MD Work Phone: [email or web address] 09-28-2023 13:40-0500 Body weight 88.45 kg Steff Muhammad MD Work Phone: [email or web address] 09-28-2023 13:40-0500 Diastolic blood pressure 68 mm[Hg] Steff Muhammad MD Work Phone: [email or web address] 09-28-2023 13:40-0500 Heart rate 66 /min Steff Muhammad MD Work Phone: [email or web address] 09-28-2023 13:40-0500 Systolic blood pressure 112 mm[Hg] Steff Muhammad MD Work Phone: [email or web address] 09-12-2023 10:32-0500 Body height 177.8 cm Alexa Vieyra MA [employer]; [employer] 09-12-2023 10:32-0500 Body mass index (BMI) [Ratio] 27.9 kg/m2 Alexa Vieyra MA [employer] 09-12-2023 10:32-0500 Body surface area Derived from formula 2.06 m2 Alexa Vieyra MA [employer] 09-12-2023 10:32-0500 Body weight 88.2 kg Alexa Vieyra MA [employer]; [employer] 09-12-2023 10:32-0500 Diastolic blood pressure 84 mm[Hg] Alexa Vieyra MA [employer] 09-12-2023 10:32-0500 Heart rate 66 /min Alexa Vieyra MA [employer]; [employer] 09-12-2023 10:32-0500 Inhaled oxygen concentration 20 % Alexa Vieyra MA [facility]. 09-12-2023 10:32-0500 SaO2% (BldA) [Mass fraction] 92 % Alexa Vieyra MA [facility], [facility].; [facility] [employer] 09-12-2023 10:32-0500 Systolic blood pressure 172 mm[Hg] Alexa Vieyra MA [facility], [facility].; [facility]. 08-03-2023 13:51-0500 Body height 177.8 cm [facility].; [facility], [facility]. 08-03-2023 13:51-0500 Body mass index (BMI) [Ratio] 28.44 kg/m2 [facility].; [facility], [facility]. 08-03-2023 13:51-0500 Body surface area Derived from formula 2.08 m2 [facility].; [facility], [facility]. 08-03-2023 13:51-0500 Body weight 89.9 kg [facility].; [facility], [facility]. 08-03-2023 13:51-0500 Diastolic blood pressure 75 mm[Hg] [facility].; [facility], [facility]. 08-03-2023 13:51-0500 Heart rate 53 /min [facility].; [facility], [facility]. 08-03-2023 13:51-0500 Inhaled oxygen concentration 20 % [facility].; [facility], [facility]. 08-03-2023 13:51-0500 SaO2% (BldA) [Mass fraction] 95 % [facility], [facility].; [facility], [facility]. 08-03-2023 13:51-0500 Systolic blood pressure 120 mm[Hg] [facility], [facility].; [facility], [facility]. 04-21-2023 08:36-0400 Body height 172.7 cm Amanda Adams MD Work Phone: [facility] 04-21-2023 08:36-0400 Body temperature 97.9 [degF] Amanda Adams MD Work Phone: [facility] 04-21-2023 08:36-0400 Body weight 95.25 kg Amanda Adams MD Work Phone: [facility] 04-21-2023 08:36-0400 Diastolic blood pressure 76 mm[Hg] Amanda Adams MD Work Phone: [facility] 04-21-2023 08:36-0400 Heart rate 8 /min Amanda Adams MD Work Phone: [facility] 04-21-2023 08:36-0400 Systolic blood pressure 157 mm[Hg] Amanda Adams MD Work Phone: [facility] 04-12-2023 12:52-0400 Body height 172.7 cm Steff Muhammad MD Work Phone: [facility] 04-12-2023 12:52-0400 Body mass index (BMI) [Ratio] 31.32 kg/m2 Steff Muhammad MD Work Phone: [facility] 04-12-2023 12:52-0400 Body weight 93.44 kg Steff Muhammad MD Work Phone: [facility] 04-12-2023 12:52-0400 Diastolic blood pressure 80 mm[Hg] Steff Muhammad MD Work Phone: [facility] 04-12-2023 12:52-0400 Heart rate 70 /min Steff Muhammad MD Work Phone: [facility] 04-12-2023 12:52-0400 Systolic blood pressure 141 mm[Hg] Steff Muhammad MD Work Phone: [facility] 03-03-2023 10:16-0400 Body height 177.8 cm Montserrat Chong LPN [facility], [facility].; [facility], [facility]. 03-03-2023 10:16-0400 Body mass index (BMI) [Ratio] 30.28 kg/m2 Montserrat Chatmanlabach RADIATION CONTROL WORKER [facility].; [facility]. 03-03-2023 10:16-0400 Body surface area Derived from formula 2.14 m2 Montserrat Chatmanlabach [facility].; [facility]. 03-03-2023 10:160400 Body weight 95.71 kg Montserrat Licea Castillo [facility].; [facility]. 03-03-2023 10:160400 Diastolic blood pressure 72 mm[Hg] [facility]. 03-03-2023 10:160400 Heart rate 69 /min Montserrat Licea Castillo [facility].; [facility]. 03-03-2023 10:16-0400 Systolic blood pressure 139 mm[Hg] Montserrat [facility]ach [facility].; [facility] [employer] [facility]. 01-05-2023 13:24-0400 Body height 177.8 cm Kaylin Yeni Hui PA-C Work Phone: [employer] [facility].; [employer] [facility]. 01-05-2023 13:24-0400 Body mass index (BMI) [Ratio] 30.42 kg/m2 Kaylin Jaime Hui PA-C Work Phone: [employer] [facility].; [employer] [facility]. 01-05-2023 13:24-0400 Body surface area Derived from formula 2.14 m2 Kaylin Yeni Hui PA-C Work Phone: [employer] [facility].; [employer] [facility]. 01-05-2023 13:24-0400 Body weight 96.16 kg Kaylin Yeni Hui PA-C Work Phone: [employer] [facility].; [employer] [facility]. 01-05-2023 13:24-0400 Diastolic blood pressure 74 mm[Hg] Kaylin Yeni Hui PA-C Work Phone: [facility].; [facility] 01-05-2023 13:24-0400 Heart rate 73 /min Kaylin Hui PA-C Work Phone: [facility].; [facility] 01-05-2023 13:24-0400 Systolic blood pressure 136 mm[Hg] Kaylin Hui PA-C Work Phone: [facility].; [facility] 11-27-2022 02:03-0500 Diastolic blood pressure 70 mm[Hg] Pcp Unknown [facility] 11-27-2022 02:03-0500 Heart rate 71 /min Pcp Unknown [facility] 11-27-2022 02:03-0500 Respiratory rate 16 /min Pcp Unknown [facility] 11-27-2022 02:03-0500 SaO2% (BldA) [Mass fraction] 95 % Pcp Unknown [facility] 11-27-2022 02:03-0500 Systolic blood pressure 138 mm[Hg] Pcp Unknown [facility] 09-27-2022 13:53-0500 Body height 175.3 cm Sonu Riojas MD Work Phone: [facility] 09-27-2022 13:53-0500 Body temperature 97.7 [degF] Sonu Riojas MD Work Phone: [facility] 09-27-2022 13:53-0500 Body weight 98.1 kg Pulm 11 Other Phone: [facility] 09-27-2022 13:53-0500 Diastolic blood pressure 67 mm[Hg] Sonu Riojas MD Work Phone: [facility] 09-27-2022 13:53-0500 Heart rate 65 /min Sonu Riojas MD Work Phone: [facility] 09-27-2022 13:53-0500 Respiratory rate 18 /min Sonu Riojas MD Work Phone: [facility] 09-27-2022 13:53-0500 SaO2% (BldA) [Mass fraction] 94 % Sonu Riojas MD Work Phone: [facility] 09-27-2022 13:53-0500 Systolic blood pressure 141 mm[Hg] Sonu Riojas MD Work Phone: [facility] 09-27-2022 11:00-0500 Body height 173 cm Pulm 11 Other Phone: [facility] 07-18-2022 14:04-0400 Body height 177.8 cm Kaylin Jaime Hui PA-C Work Phone: [employer]; [employer] 07-18-2022 14:04-0400 Body mass index (BMI) [Ratio] 30.56 kg/m2 Kaylin J Hui PA-C Work Phone: [employer]; [employer] 07-18-2022 14:04-0400 Body surface area Derived from formula 2.14 m2 Kaylin J Hui PA-C Work Phone: [employer]; [employer] 07-18-2022 14:04-0400 Body temperature 99 [degF] Kaylin Yeni Hui PA-C Work Phone: [employer]; [employer] 07-18-2022 14:04-0400 Body weight 96.62 kg Kaylin Yeni Hui PA-C Work Phone: [employer]; [employer] 07-18-2022 14:04-0400 Diastolic blood pressure 86 mm[Hg] Kaylin J Hui PA-C Work Phone: [employer]; [employer] 07-18-2022 14:04-0400 Heart rate 61 /min Kaylin J Hui PA-C Work Phone: [employer]; [employer] 07-18-2022 14:04-0400 Systolic blood pressure 147 mm[Hg] Kaylin PEGUERO-C Work Phone: [facility], [facility].; [facility], [facility]. 07-07-2022 09:38-0400 Body height 177.8 cm Yolis Mora LPN [facility], [facility].; [facility] [employer] 07-07-2022 09:38-0400 Body mass index (BMI) [Ratio] 30.85 kg/m2 [facility], [facility].; [facility], [employer] 07-07-2022 09:38-0400 Body surface area Derived from formula 2.15 m2 Yolis Russostephanie [facility], [facility].; [facility], [facility]. 07-07-2022 09:38-0400 Body temperature 97.7 [degF] Yolisfabiola Mora [facility], [facility].; [facility], [facility]. 07-07-2022 09:38-0400 Body weight 97.[address] [facility], [facility].; [facility], [facility]. 07-07-2022 09:38-0400 Diastolic blood pressure 86 mm[Hg] Yolisfabiola Russostephanie [facility], [facility].; [facility], [employer] 07-07-2022 09:38-0400 Heart rate 61 /min Yolisfabiola Russostephanie [employer] [facility], [facility].; [facility], [facility]. 07-07-2022 09:38-0400 Systolic blood pressure 156 mm[Hg] Yolis Mora LPN [facility], [facility].; [facility], [employer] 06-30-2022 13:13-0400 Body height 177.8 cm Kaylin PEGUERO-C Work Phone: [facility], [facility].; [facility], [employer] 06-30-2022 13:13-0400 Body mass index (BMI) [Ratio] 30.42 kg/m2 Kaylin Hui PA-C Work Phone: [facility], [facility].; [facility] [employer] 06-30-2022 13:13-0400 Body surface area Derived from formula 2.14 m2 Kaylin rAellanoer PA-C Work Phone: [employer]; [employer] [facility] 06-30-2022 13:13-0400 Body weight 96.16 kg Kaylin Arellanoer PA-C Work Phone: [employer] [facility] 06-30-2022 13:13-0400 Diastolic blood pressure 73 mm[Hg] Kaylin Arellanoer PA-C Work Phone: [employer] [facility] 06-30-2022 13:13-0400 Heart rate 64 /min Kaylin Arellanoer PA-C Work Phone: [employer] [facility] 06-30-2022 13:13-0400 Systolic blood pressure 131 mm[Hg] Kaylin Arellanoer PA-C Work Phone: [employer] 03-15-2022 12:52-0400 Body temperature 97.81 [degF] Sonu Riojas MD Work Phone: [facility] 03-15-2022 12:52-0400 Diastolic blood pressure 69 mm[Hg] Sonu Riojas MD Work Phone: [facility] 03-15-2022 12:52-0400 Heart rate 60 /min Sonu Riojas MD Work Phone: [facility] 03-15-2022 12:52-0400 SaO2% (BldA) [Mass fraction] 93 % Sonu Riojas MD Work Phone: [facility] 03-15-2022 12:52-0400 Systolic blood pressure 135 mm[Hg] Sonu Riojas MD Work Phone: [facility] 12-27-2021 13:12-0400 Body height 177.8 cm Kaylin Arellanoer PA-C Work Phone: [employer]; [employer] 12-27-2021 13:12-0400 Body mass index (BMI) [Ratio] 30.28 kg/m2 Kaylin Jaime Hui PA-C Work Phone: [employer] 12-27-2021 13:12-0400 Body surface area Derived from formula 2.14 m2 Kaylin Yeni Hui PA-C Work Phone: [employer] 12-27-2021 13:12-0400 Body weight 95.71 kg Kaylin Jaime Hui PA-C Work Phone: [employer]; [employer] 12-27-2021 13:12-0400 Diastolic blood pressure 74 mm[Hg] Kaylin Yeni Hui PA-C Work Phone: [employer]; [employer] 12-27-2021 13:12-0400 Heart rate 61 /min Kaylin Jaime Hui PA-C Work Phone: [employer]; [employer] 12-27-2021 13:12-0400 Systolic blood pressure 131 mm[Hg] Kaylin Yeni Hui PA-C Work Phone: [employer]; [employer] 11-17-2021 08:56-0500 Body height 177.8 cm Kaylin Yeni Hui PA-C Work Phone: [employer]; [employer] 11-17-2021 08:56-0500 Body mass index (BMI) [Ratio] 30.28 kg/m2 Kaylin Yeni Hui PA-C Work Phone: [employer]; [employer] 11-17-2021 08:56-0500 Body surface area Derived from formula 2.14 m2 Kaylin Yeni Hui PA-C Work Phone: [employer].; [employer] [facility]. 11-17-2021 08:56-0500 Body weight 95.71 kg Kaylin Arellanoer PA-C Work Phone: [employer] 11-17-2021 08:56-0500 Diastolic blood pressure 64 mm[Hg] Kaylin Yeni Hui PA-C Work Phone: [employer].; [employer] 11-17-2021 08:56-0500 Heart rate 57 /min Kaylin Jaime Hui PA-C Work Phone: [employer].; [employer] 11-17-2021 08:56-0500 Systolic blood pressure 124 mm[Hg] Kaylin Yeni Hui PA-C Work Phone: [employer].; [employer] [facility]. 10-22-2021 13:13-0500 Body height 177.8 cm Kaylin Jaime Hui PA-C Work Phone: [employer]; [employer] 10-22-2021 13:13-0500 Body mass index (BMI) [Ratio] 30.99 kg/m2 Kaylin Jaime Hui PA-C Work Phone: [employer] 10-22-2021 13:13-0500 Body surface area Derived from formula 2.16 m2 Kaylin Yeni Hui PA-C Work Phone: [employer] 10-22-2021 13:13-0500 Body weight 97.98 kg Kaylin Yeni Hui PA-C Work Phone: [employer]; [employer] 10-22-2021 13:13-0500 Diastolic blood pressure 78 mm[Hg] Kaylin Yeni Hui PA-C Work Phone: [employer].; [employer] 10-22-2021 13:13-0500 Heart rate 70 /min Kaylin Yeni Hui PA-C Work Phone: [facility], [facility].; [employer] [facility]. 10-22-2021 13:13-0500 Systolic blood pressure 134 mm[Hg] Kaylin Yeni Hui PA-C Work Phone: [facility], [facility].; [employer] [facility] 08-03-2021 14:39-0500 Body height 177.8 cm Lucia Alcala LPN [facility], [facility].; [employer] 08-03-2021 14:39-0500 Body mass index (BMI) [Ratio] 30.71 kg/m2 Lucia Alcala LPN [employer] [facility] 08-03-2021 14:39-0500 Body surface area Derived from formula 2.15 m2 Lucia Alcala RADIATION CONTROL WORKER [employer] [facility] [employer] 08-03-2021 14:39-0500 Body weight 97.07 kg Lucia Alcala RADIATION CONTROL WORKER [employer] [facility], [facility].; [employer] 08-03-2021 14:39-0500 Diastolic blood pressure 77 mm[Hg] Lucia Alcala LPN [facility], Inc.; [employer] 08-03-2021 14:39-0500 Heart rate 59 /min Lucia Alcala RADIATION CONTROL WORKER [facility] [facility], [facility].; [employer], [facility]. 08-03-2021 14:39-0500 Systolic blood pressure 139 mm[Hg] Lucia Alcala LPN [facility], [facility].; [employer] 06-10-2021 13:16-0400 Body height 177.8 cm Montserrat Chong RADIATION CONTROL WORKER [facility], [facility].; [employer] 06-10-2021 13:16-0400 Body mass index (BMI) [Ratio] 29.84 kg/m2 Montserrat Chong LPN [facility], [facility].; [employer] 06-10-2021 13:16-0400 Body surface area Derived from formula 2.12 m2 Montserrat Licea Castillo XIE [facility].; [facility] 06-10-2021 13:16-0400 Body weight 94.35 kg Montserrat Licea Castillo RADIATION CONTROL WORKER [facility].; [facility]. 06-10-2021 13:16-0400 Diastolic blood pressure 74 mm[Hg] Montserrat Licea Castillo [facility].; [facility]. 06-10-2021 13:16-0400 Heart rate 51 /min Montserrat Licea Castillo XIE [facility].; [facility]. 06-10-2021 13:16-0400 Systolic blood pressure 134 mm[Hg] Montserart Licea Castillo [facility].; [facility]. 05-18-2021 16:34-0400 Body height 177.8 cm Breanna Yeni Baez PA-C Work Phone: [facility].; [employer] [facility]. 05-18-2021 16:34-0400 Body mass index (BMI) [Ratio] 29.7 kg/m2 Breanna J Baez PA-C Work Phone: [facility].; [employer] [facility]. 05-18-2021 16:34-0400 Body surface area Derived from formula 2.12 m2 Breanna J Baez PA-C Work Phone: [employer] [facility].; [employer] [facility]. 05-18-2021 16:34-0400 Body temperature 97.7 [degF] Breanna J Baez PA-C Work Phone: [employer].; [employer] [facility]. 05-18-2021 16:34-0400 Body weight 93.9 kg Breanna J Baez PA-C Work Phone: [employer].; [employer]. 05-18-2021 16:34-0400 Diastolic blood pressure 82 mm[Hg] Breanna J Baez PA-C Work Phone: [facility].; [facility]. 05-18-2021 16:34-0400 Heart rate 57 /min Breanna Yeni Baez PA-C Work Phone: [facility].; [employer]. 05-18-2021 16:34-0400 Systolic blood pressure 144 mm[Hg] Breanna J Nestor PA-C Work Phone: [facility].; [employer] [facility]. 02-04-2021 11:20-0400 Body height 177.8 cm Lucia Alcala LPN [facility], [facility].; [facility]. 02-04-2021 11:20-0400 Body mass index (BMI) [Ratio] 29.99 kg/m2 Lucia Alcala LPN [facility], [facility].; [facility] [facility]. 02-04-2021 11:20-0400 Body surface area Derived from formula 2.13 m2 Lucia Alcala LPN [facility].; [facility]. 02-04-2021 11:20-0400 Body weight 94.8 kg Lucia Alcala LPN [facility], [facility].; [facility], [facility]. 02-04-2021 11:20-0400 Diastolic blood pressure 67 mm[Hg] Lucia Alcala LPN [facility], [facility].; [employer] [facility]. 02-04-2021 11:20-0400 Heart rate 60 /min Lucia [facility]cala LPN [facility].; [employer] [facility]. 02-04-2021 11:20-0400 Systolic blood pressure 122 mm[Hg] Lucia Aclala LPN [facility], [facility].; [employer] [employer] [facility]. 12-07-2020 11:25-0400 Body height 177.8 cm Gaby Mathias RN [facility], [facility].; [place] [employer] [facility]. 12-07-2020 11:25-0400 Body mass index (BMI) [Ratio] 30.71 kg/m2 Gaby Mathias RN [facility] Center[facility].; [facility] [facility]. 12-07-2020 11:25-0400 Body surface area Derived from formula 2.15 m2 Gaby Mathias RN [facility].; [employer] [facility]. 12-07-2020 11:25-0400 Body temperature 99.1 [degF] Gaby Mathias RN [facility].; [employer] [facility]. 12-07-2020 11:25-040 Body weight 97.07 kg Gaby Mathias RN [facility].; [employer] [facility]. 12-07-2020 11:25-0400 Diastolic blood pressure 72 mm[Hg] Gaby Mathias RN [facility].; [employer] [facility], [facility]. 12-07-2020 11:25-0400 Systolic blood pressure 132 mm[Hg] Gaby Mathias RN [facility].; [employer] [facility], [facility]. 11-26-2020 11:32-0500 Body height 177.8 cm Lucia [facility]cala LPN [facility].; [employer] [facility]. 11-26-2020 11:32-0500 Body mass index (BMI) [Ratio] 30.28 kg/m2 Lucia Alcala LPN [facility], [facility].; [employer], [facility]. 11-26-2020 11:32-0500 Body surface area Derived from formula 2.14 m2 Lucia Alcala LPN [facility], [facility].; [employer] [facility]. 11-26-2020 11:32-0500 Body weight 95.71 kg Lucia Alcala LPN [facility] [facility].; [employer] [facility]. 11-26-2020 11:32-0500 Diastolic blood pressure 80 mm[Hg] Lucia Alcala LPN [facility] [facility], [facility].; [employer] [facility]. 11-26-2020 11:32-0500 Heart rate 56 /min Lucia Alcala LPN [facility], [facility].; [employer] [facility]. 11-26-2020 11:32-0500 Systolic blood pressure 130 mm[Hg] Lucia Alcala LPN [facility], [facility].; [facility], [facility]. 08-04-2020 13:32-0500 Body height 177.8 cm Lucia Alcala LPN [facility], [facility].; [facility], [facility]. 08-04-2020 13:32-0500 Body mass index (BMI) [Ratio] 29.13 kg/m2 Lucia Alcala LPN [facility], [facility].; [facility], [facility]. 08-04-2020 13:32-0500 Body surface area Derived from formula 2.1 m2 Lucia Alcala LPN [facility], [facility].; [facility], [facility]. 08-04-2020 13:32-0500 Body temperature 98.9 [degF] Lucia Alcala LPN [facility], [facility].; [facility], [facility]. 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.; [facility], [facility]. 08-04-2020 13:32-0500 Diastolic blood pressure 63 mm[Hg] Lucia Alcala LPN [facility], [facility].; [facility], [facility]. 08-04-2020 13:32-0500 Heart rate 61 /min Lucia Alcala RADIATION CONTROL WORKER [facility], [facility].; [facility], [facility]. 08-04-2020 13:32-0500 Inhaled oxygen concentration 20 % Lucia Alcala RADIATION CONTROL WORKER [facility], [facility].; [employer] [facility], [facility]. 08-04-2020 13:32-0500 SaO2% (BldA) [Mass fraction] 94 % Lucia Alcala LPN [facility], [facility].; [facility], [facility]. 08-04-2020 13:32-0500 Systolic blood pressure 124 mm[Hg] Lucia Alcala RADIATION CONTROL WORKER [facility], [facility].; [employer] [facility], [facility]. 05-13-2020 10:09-0400 Body height 177.8 cm Gris Reyes RADIATION CONTROL WORKER [facility], [facility].; [employer], [employer]. 05-13-2020 10:09-0400 Body temperature 98.6 [degF] Gris Reyes [facility], [facility].; [employer]. 05-13-2020 10:09-0400 Diastolic blood pressure 74 mm[Hg] [facility], [employer].; [employer] 05-13-2020 10:09-0400 Heart rate 72 /min [facility], [facility].; [employer] 05-13-2020 10:09-0400 Inhaled oxygen concentration 20 % [facility], [facility].; [employer]. 05-13-2020 10:09-0400 SaO2% (BldA) [Mass fraction] 93 % [facility], [facility].; [employer]. 05-13-2020 10:09-0400 Systolic blood pressure 127 mm[Hg] [facility]by [facility], [employer].; [employer] 03-12-2020 14:42-0400 Body height 177.8 cm Gaby Mathias RN [facility].; [employer] 03-12-2020 14:42-0400 Body mass index (BMI) [Ratio] 29.99 kg/m2 Gaby Mathias RN [facility].; [employer] 03-12-2020 14:42-0400 Body surface area Derived from formula 2.13 m2 Gaby Mathias RN [facility].; [employer]. 03-12-2020 14:42-0400 Body weight 94.8 kg Gaby Mathias RN [employer].; [employer] 03-12-2020 14:42-0400 Diastolic blood pressure 69 mm[Hg] Gaby Mathias RN [employer].; [employer] 03-12-2020 14:42-0400 Heart rate 52 /min Gaby Mathias RN [employer].; [employer] 03-12-2020 14:42-0400 Systolic blood pressure 123 mm[Hg] Gaby Mathias RN [employer].; [employer] [facility]. 11-01-2019 13:01-0500 Body height 177.8 cm Montserrat Vinayak Castillo XIE [facility].; [facility] [facility]. 11-01-2019 13:01-0500 Body mass index (BMI) [Ratio] 29.99 kg/m2 Montserrat Chong LPN [facility].; [employer] [facility]. 11-01-2019 13:01-0500 Body surface area Derived from formula 2.13 m2 Montserrat Chong LPN [facility] [facility].; [facility] [facility]. 11-01-2019 13:01-0500 Body weight 94.8 kg Montserrat M Castillo XIE [facility].; [employer] [facility]. 11-01-2019 13:01-0500 Diastolic blood pressure 81 mm[Hg] Montserrat Chong LPN [employer].; [employer] [facility]. 11-01-2019 13:01-0500 Heart rate 56 /min Montserrat Chong LPN [facility].; ClayEP[employer] [facility]. 11-01-2019 13:01-0500 Systolic blood pressure 131 mm[Hg] Montserrat Chong LPN [facility].; ClayEP[employer] [facility]. 09-26-2019 11:30-0500 Body height 177.8 cm Gaby Mathias RN [facility] [facility].; [employer] [facility]. 09-26-2019 11:30-0500 Body mass index (BMI) [Ratio] 30.42 kg/m2 Gaby Mathias RN [facility] [facility].; [employer]. 09-26-2019 11:30-0500 Body surface area Derived from formula 2.14 m2 Gaby Mathias RN [facility]EP[facility].; [employer]. 09-26-2019 11:30-0500 Body temperature 99.4 [degF] Gaby Mathias RN [facility].; [employer]. 09-26-2019 11:30-0500 Body weight 96.16 kg Gaby Mathias RN [employer], [employer].; [employer] 09-26-2019 11:30-0500 Diastolic blood pressure 59 mm[Hg] Gaby Mathias RN [employer], [employer], [employer] 09-26-2019 11:30-0500 Heart rate 62 /min Gaby Mathias RN [facility]EP[facility], [facility].; [employer], [employer] 09-26-2019 11:30-0500 Systolic blood pressure 98 mm[Hg] Gaby Mathias RN [employer], [employer], [employer] 08-02-2019 14:25-0500 Body height 177.8 cm Montserrat Chong RADIATION CONTROL WORKER [employer] 08-02-2019 14:25-0500 Body mass index (BMI) [Ratio] 30.13 kg/m2 Montserrat Chong LPN [employer], [employer].; [employer], [employer] 08-02-2019 14:25-0500 Body surface area Derived from formula 2.13 m2 Montserrat Chong LPN [employer], [employer].; [employer], [employer]. 08-02-2019 14:25-0500 Body weight 95.26 kg Montserrat Chong RADIATION CONTROL WORKER [employer], [employer] 08-02-2019 14:25-0500 Diastolic blood pressure 77 mm[Hg] Montserrat Chong LPN [employer], [employer] 08-02-2019 14:25-0500 Heart rate 61 /min Montserrat Chong LPN [employer], [employer], [employer]. 08-02-2019 14:25-0500 Systolic blood pressure 117 mm[Hg] Montserrat Chong LPN [employer], [employer] 07-31-2019 13:06-0500 Body height 177.8 cm Judy Kasper LPN [employer], [employer], [employer]. 07-31-2019 13:06-0500 Body mass index (BMI) [Ratio] 30.13 kg/m2 Judychester Kasper ROJAS [employer], [employer].; [employer], [employer] 07-31-2019 13:06-0500 Body surface area Derived from formula 2.13 m2 Judy Rivasmoiz RADIATION CONTROL WORKER [employer], [employer] 07-31-2019 13:06-0500 Body weight 95.26 kg Judy Majo RADIATION CONTROL WORKER [employer], [employer].; [employer], [employer] 07-31-2019 13:06-0500 Diastolic blood pressure 80 mm[Hg] Judy Rivasmoiz RADIATION CONTROL WORKER [employer], [employer] 07-31-2019 13:06-0500 Heart rate 63 /min Judy Majo RADIATION CONTROL WORKER [employer], [employer] 07-31-2019 13:06-0500 Systolic blood pressure 137 mm[Hg] Judy [facility] [employer], [employer] 07-16-2019 16:08-0400 Body height 177.8 cm Lucia Alcala LPN [employer], [employer], [employer] 07-16-2019 16:08-0400 Body mass index (BMI) [Ratio] 31.42 kg/m2 Lucia Alcala LPN [employer], [employer].; [employer], [employer] 07-16-2019 16:08-0400 Body surface area Derived from formula 2.17 m2 Lucia Alcala LPN [employer], [employer], [employer] 07-16-2019 16:08-0400 Body temperature 98 [degF] Lucia Alcala LPN [facility], Inc.; [employer], [employer] 07-16-2019 16:08-0400 Body weight 99.34 kg Lucia Alcala LPN [employer], [employer] 07-16-2019 16:08-0400 Diastolic blood pressure 75 mm[Hg] Lucia Alcala LPN [employer], [employer] 07-16-2019 16:08-0400 Heart rate 48 /min Lucia Alcala LPN [employer], [employer], [employer]. 07-16-2019 16:08-0400 Inhaled oxygen concentration 20 % Lucia Alcala RADIATION CONTROL WORKER [facility], Inc.; [employer], [employer]. 07-16-2019 16:08-0400 SaO2% (BldA) [Mass fraction] 96 % Lucia Alcala RADIATION CONTROL WORKER [facility], Inc.; [employer], [employer]. 07-16-2019 16:08-0400 Systolic blood pressure 128 mm[Hg] Lucia Alcala RADIATION CONTROL WORKER [place] [facility], Inc.; [employer], [employer] 06-26-2019 07:47-0400 Body height 177.8 cm Gris Avitiauckey RADIATION CONTROL WORKER [facility], Inc.; [employer], [employer]. 06-26-2019 07:47-0400 Body mass index (BMI) [Ratio] 29.56 kg/m2 Debby Gamewell RADIATION CONTROL WORKER [facility], Inc.; [employer], [employer] 06-26-2019 07:47-0400 Body surface area Derived from formula 2.11 m2 Debby Gamewell RADIATION CONTROL WORKER [facility], Inc.; [employer], [employer]. 06-26-2019 07:47-0400 Body temperature 97.6 [degF] DebbyLisa Goldsmithey RADIATION CONTROL WORKER [facility], Inc.; [employer], [employer] 06-26-2019 07:47-0400 Body weight 93.44 kg Debby Gamewell ROJAS [facility], Inc.; [employer], [employer]. 06-26-2019 07:47-0400 Diastolic blood pressure 67 mm[Hg] DebbyLisa Goldsmithey ROJAS [facility], Inc.; [employer], [employer]. 06-26-2019 07:47-0400 Heart rate 52 /min Debby Amy RADIATION CONTROL WORKER [facility], Inc.; [employer], [employer]. 06-26-2019 07:47-0400 Inhaled oxygen concentration 20 % Gris Reyes RADIATION CONTROL WORKER [facility], Inc.; [employer], [employer]. 06-26-2019 07:47-0400 SaO2% (BldA) [Mass fraction] 98 % Debby Amy RADIATION CONTROL WORKER [facility], Inc.; [employer] 06-26-2019 07:47-0400 Systolic blood pressure 106 mm[Hg] Gris Reyes RADIATION CONTROL WORKER [place] [facility], [facility].; [employer] 06-20-2019 12:53-0400 Body height 177.8 cm Krissy Bell LPYalobusha General HospitalMetaCDN [facility], Inc.; Clay [employer] 06-20-2019 12:53-0400 Body mass index (BMI) [Ratio] 31.71 kg/m2 Krissy Bell [facility] [employer], [employer], [employer] 06-20-2019 12:53-0400 Body surface area Derived from formula 2.18 m2 Krissy Bell [facility] [employer], [employer], [employer] 06-20-2019 12:53-0400 Body temperature 98.2 [degF] Krissy Bell [facility] [employer], Inc[employer], [employer] 06-20-2019 12:53-0400 Body weight 100.25 kg [facility]issy [facility] [employer], Inc.; [employer], [employer] 06-20-2019 12:53-0400 Diastolic blood pressure 91 mm[Hg] [facility]issy [facility] [employer], [employer].; [employer], [employer] 06-20-2019 12:53-0400 Heart rate 54 /min Krissy Bell [facility] [employer] [facility], Inc.; [employer] 06-20-2019 12:53-0400 Inhaled oxygen concentration 28 % Krissy Bell [facility] [employer], [employer] 06-20-2019 12:53-0400 SaO2% (BldA) [Mass fraction] 97 % Krissydania Bell [facility] [employer], Inc.; [employer] 06-20-2019 12:53-0400 Systolic blood pressure 147 mm[Hg] Krissy Bell [facility] [employer], [employer] 06-20-2019 12:53-0400 2 L/min Krissy [facility], [facility].; [facility], Inc. 04-05-2019 10:15-0400 Body height 177.8 cm Montserrat Chatmanlabach [facility], Inc.; [employer], [employer] 04-05-2019 10:15-0400 Body mass index (BMI) [Ratio] 30.42 kg/m2 Montserrat Licea [facility] Inc.; [employer], [employer] 04-05-2019 10:15-0400 Body surface area Derived from formula 2.[address] [facility], Inc.; [place] [employer] 04-05-2019 10:150400 Body weight 96.16 kg Montserrat [facility], Inc.; Clay [employer] Inc. 04-05-2019 10:15-0400 Diastolic blood pressure 68 mm[Hg] Montserrat [facility]rie[facility] Wales[facility] Inc.; Clay [employer] Inc[employer] 04-05-2019 10:15-0400 Heart rate 68 /min Montserrat M Castillo [facility], Inc.; [employer], [employer] 04-05-2019 10:15-0400 Systolic blood pressure 112 mm[Hg] Montserrat Licea Castillo [facility], Inc.; [employer] 01-11-2019 10:210400 Body height 177.8 cm Amanda Guzman MD Work Phone: [employer] [employer] 01-11-2019 10:21-0400 Body mass index (BMI) [Ratio] 28.7 kg/m2 Amanda Guzman MD Work Phone: [employer].; [employer] 01-11-2019 10:21-0400 Body surface area Derived from formula 2.09 m2 Amanda Guzman MD Work Phone: [employer].; [employer]. 01-11-2019 10:21-0400 Body weight 90.72 kg Amanda Guzman MD Work Phone: [employer], [employer] 01-11-2019 10:21-0400 Diastolic blood pressure 54 mm[Hg] Amanda Guzman MD Work Phone: [employer], [employer] 01-11-2019 10:21-0400 Heart rate 51 /min Amanda Guzman MD Work Phone: [employer], [employer] 01-11-2019 10:21-0400 Systolic blood pressure 96 mm[Hg] Amanda Guzman MD Work Phone: [employer]; [employer] 12-10-2018 08:56-0400 Body height 177.8 cm Debby Stuckey RADIATION CONTROL WORKER [employer] 12-10-2018 08:56-0400 Body mass index (BMI) [Ratio] 28.27 kg/m2 Debby Stuckey RADIATION CONTROL WORKER [employer], [employer] 12-10-2018 08:56-0400 Body surface area Derived from formula 2.07 m2 Debby Stuckey RADIATION CONTROL WORKER [employer] 12-10-2018 08:56-0400 Body temperature 98.9 [degF] DebbyLisa Reyes RADIATION CONTROL WORKER [employer] 12-10-2018 08:56-0400 Body weight 89.36 kg DebbyLisa Reyes RADIATION CONTROL WORKER [employer], [employer], [employer] 12-10-2018 08:56-0400 Diastolic blood pressure 65 mm[Hg] Gris Reyes RADIATION CONTROL WORKER [employer], [employer], [employer] 12-10-2018 08:56-0400 Heart rate 56 /min DebbyLisa Reyes RADIATION CONTROL WORKER [employer], [employer], [employer] 12-10-2018 08:56-0400 Systolic blood pressure 101 mm[Hg] Gris Reyes LPN [employer]; [employer] 10-26-2018 11:26-0500 Body height 177.8 cm Gaby Mathias RN [employer]; [employer] 10-26-2018 11:26-0500 Body mass index (BMI) [Ratio] 29.27 kg/m2 Gaby Mathias RN [employer]; [employer] 10-26-2018 11:26-0500 Body surface area Derived from formula 2.11 m2 Gaby Mathias RN [employer]; [employer] 10-26-2018 11:26-0500 Body temperature 98.8 [degF] Gaby Mathias RN [employer]; [employer] 10-26-2018 11:26-0500 Body weight 92.53 kg Gaby Mathias RN [employer]; [employer] 10-26-2018 11:26-0500 Diastolic blood pressure 83 mm[Hg] Gaby Mathias RN [employer]; [employer] 10-26-2018 11:26-0500 Heart rate 56 /min Gaby Mathias RN [employer]; [employer] 10-26-2018 11:26-0500 Inhaled oxygen concentration 20 % Gaby Mathias RN [employer]; [employer] 10-26-2018 11:26-0500 SaO2% (BldA) [Mass fraction] 97 % Gaby Mathias RN [employer]; [employer] 10-26-2018 11:26-0500 Systolic blood pressure 153 mm[Hg] Gaby Mathias RN [employer]; [employer] 10-05-2018 08:58-0500 Body height 177.8 cm Amanda Guzman MD Work Phone: [employer]; [employer] 10-05-2018 08:58-0500 Body mass index (BMI) [Ratio] 28.55 kg/m2 Amanda Guzman MD Work Phone: [employer]; [employer] 10-05-2018 08:58-0500 Body surface area Derived from formula 2.08 m2 Amanda Guzman MD Work Phone: [employer]; [employer] 10-05-2018 08:58-0500 Body weight 90.27 kg Amanda Guzman MD Work Phone: [employer]; [employer] 10-05-2018 08:58-0500 Diastolic blood pressure 74 mm[Hg] Amanda Guzman MD Work Phone: [employer]; [employer] 10-05-2018 08:58-0500 Heart rate 78 /min Amanda Guzman MD Work Phone: [employer]; [employer] 10-05-2018 08:58-0500 Inhaled oxygen concentration 20 % Amanda Guzman MD Work Phone: [employer]; [employer] 10-05-2018 08:58-0500 SaO2% (BldA) [Mass fraction] 92 % Amanda Guzman MD Work Phone: [employer]; [employer] 10-05-2018 08:58-0500 Systolic blood pressure 138 mm[Hg] Amanda Guzman MD Work Phone: [employer]; [employer] 09-14-2018 13:12-0500 Body height 177.8 cm [email or web address] [email or web address] (scribe) [employer] 09-14-2018 13:12-0500 Body mass index (BMI) [Ratio] 26.11 kg/m2 [email or web address] Gogoi (scribe) [employer] 09-14-2018 13:12-0500 Body surface area Derived from formula 2.01 m2 Hemanta Gogoi (scribe) [facility], Inc.; [employer], [employer]. 09-14-2018 13:12-0500 Body weight 82.56 kg Hemanta Gogoi (scribe) [facility], Inc.; [employer] 09-14-2018 13:12-0500 Diastolic blood pressure 52 mm[Hg] Hemanta Gogoi (scribe) [facility], Inc.; [employer] 09-14-2018 13:12-0500 Heart rate 50 /min Hemanta Gogoi (scribe) [facility], Inc.; [employer], [employer]. 09-14-2018 13:12-0500 Systolic blood pressure 90 mm[Hg] Hemanta Gogoi (scribe) [place] [facility], Inc.; [employer] 08-23-2018 15:55-0500 Body height 177.8 cm Hemanta Gogoi (scribe) [facility], Inc.; [employer] 08-23-2018 15:55-0500 Body mass index (BMI) [Ratio] 26.54 kg/m2 Hemanta Gogoi (scribe) [facility].; [employer] 08-23-2018 15:55-0500 Body surface area Derived from formula 2.02 m2 Hemanta Gogoi (scribe) Clay [employer], [employer]. 08-23-2018 15:55-0500 Body temperature 98.1 [degF] Hemanta Gogoi (scribe) [employer] 08-23-2018 15:55-0500 Body weight 83.92 kg Hemanta Gogoi (scribe) [employer] 08-23-2018 15:55-0500 Diastolic blood pressure 72 mm[Hg] Hemanta Gogoi (scribe) [employer] 08-23-2018 15:55-0500 Heart rate 52 /min Hemanta Gogoi (scribe) [employer]. 08-23-2018 15:55-0500 Inhaled oxygen concentration 20 % Hemanta Gogoi (scribe) [facility].; [employer]. 08-23-2018 15:55-0500 SaO2% (BldA) [Mass fraction] 98 % Hemanta Gogoi ([facility] [employer]. 08-23-2018 15:55-0500 Systolic blood pressure 130 mm[Hg] Hemanta Gogoi (scribe) [facility].; [employer]. 08-23-2018 14:31-0500 Body height 177.8 cm [facility] [employer]. 08-23-2018 14:31-0500 Body mass index (BMI) [Ratio] 26.54 kg/m2 [facility] Go[facility] ([facility].; [employer]. 08-23-2018 14:31-0500 Body surface area Derived from formula 2.02 m2 [facility] [employer].; [employer]. 08-23-2018 14:31-0500 Body temperature 98.1 [degF] Hemanta Gogoi (scribe) [facility].; [employer]. 08-23-2018 14:31-0500 Body weight 83.92 kg Hemanta Gogoi ([facility].; [employer]. 08-23-2018 14:31-0500 Diastolic blood pressure 68 mm[Hg] Hemanta Gogoi (scribe) [employer].; [employer]. 08-23-2018 14:31-0500 Heart rate 52 /min Hemanta Gogoi (scribe) [employer].; [employer]. 08-23-2018 14:31-0500 Inhaled oxygen concentration 20 % Hemanta Gogoi (scribe) [employer].; [employer]. 08-23-2018 14:31-0500 SaO2% (BldA) [Mass fraction] 98 % Hemanta Gogoi (scribe) [facility].; [employer]. 08-23-2018 14:31-0500 Systolic blood pressure 128 mm[Hg] Hemanta Brettgoi (scribe) [employer]. 07-30-2018 08:48-0500 Body height 177.8 cm Hemregina Enriquei ([facility]) [employer].; [employer] 07-30-2018 08:48-0500 Body mass index (BMI) [Ratio] 26.11 kg/m2 Hemanta Ivai ([facility].; [employer]. 07-30-2018 08:48-0500 Body surface area Derived from formula 2.01 m2 [facility] [employer]. 07-30-2018 08:48-0500 Body temperature 99 [degF] Hemregina Enriquei ([facility]) [employer].; [employer] 07-30-2018 08:48-0500 Body weight 82.56 kg Hemregina Enriquei ([facility]) [employer].; [employer] 07-30-2018 08:48-0500 Diastolic blood pressure 41 mm[Hg] Hemregina Westgoi ([facility]) [facility].; [employer]. 07-30-2018 08:48-0500 Heart rate 49 /min Hemanta Brettgoi ([employer]) [employer].; [employer] 07-30-2018 08:48-0500 Inhaled oxygen concentration 20 % Hemanta Brettgoi ([employer]) [employer].; [employer]. 07-30-2018 08:48-0500 SaO2% (BldA) [Mass fraction] 92 % Hemanta Brettgoi (scribe) [employer].; [employer]. 07-30-2018 08:48-0500 Systolic blood pressure 91 mm[Hg] Aydin Vieira (scribe) [facility], Inc.; [employer] 07-18-2018 10:16-0400 Body height 177.8 cm [facility] [employer] 07-18-2018 10:16-0400 Body mass index (BMI) [Ratio] 26.11 kg/m2 [facility]errat Licea [facility] Inc.; [employer] 07-18-2018 10:16-0400 Body surface area Derived from formula 2.01 m2 [facility] [employer], [employer]. 07-18-2018 10:16-0400 Body weight 82.56 kg [facility]ong [facility] [employer], [employer]. 07-18-2018 10:16-0400 Diastolic blood pressure 52 mm[Hg] Montserrat Licea [facility]illo [facility] [employer], [employer]. 07-18-2018 10:16-0400 Heart rate 51 /min Montserrat Licea CastilloExcela [facility] Hospital[facility], [employer].; [employer], [employer]. 07-18-2018 10:16-0400 Systolic blood pressure 100 mm[Hg] [facility] [employer], [employer]. 07-04-2018 08:20-0400 Body height 177.8 cm Montserrat Licea CastilloExcela [facility] Hospital[facility], Inc.; [employer], [employer]. 07-04-2018 08:20-0400 Body mass index (BMI) [Ratio] 27.26 kg/m2 [facility] [employer], [employer]. 07-04-2018 08:20-0400 Body surface area Derived from formula 2.04 m2 Montserrat Licea CastilloExcela [facility] HospitalPass[facility], Inc.; [employer], [employer]. 07-04-2018 08:20-0400 Body weight 86.18 kg Montserrat Licea CastilloExcela [facility] Hospital[facility], [employer].; [employer] 07-04-2018 08:20-0400 Diastolic blood pressure 77 mm[Hg] [facility] [employer] 07-04-2018 08:20-0400 Heart rate 53 /min Montserrat Licea Castillo RADIATION CONTROL WORKER [employer] [facility], Inc.; [employer] 07-04-2018 08:20-0400 Systolic blood pressure 136 mm[Hg] Montserrat Licea Castillo RADIATION CONTROL WORKER [employer].; [employer] 05-07-2018 10:31-0400 Body height 177.8 cm Montserrat Licea CastilloExcela [facility] HospitalEP[facility], Inc.; [employer] 05-07-2018 10:31-0400 Body mass index (BMI) [Ratio] 28.41 kg/m2 [facility]errat Licea [facility] [employer] 05-07-2018 10:31-0400 Body surface area Derived from formula 2.08 m2 [facility]errat Licea [facility] [employer] 05-07-2018 10:31-0400 Body weight 89.81 kg [facility]at [facility] [employer] 05-07-2018 10:31-0400 Diastolic blood pressure 69 mm[Hg] Montserrat Licea Castillo RADIATION CONTROL WORKER [employer], [employer].; [employer] 05-07-2018 10:31-0400 Heart rate 55 /min Montserrat Chatmanlabach RADIATION CONTROL WORKER [employer] 05-07-2018 10:31-0400 Systolic blood pressure 121 mm[Hg] Montserrat Licea Castillo RADIATION CONTROL WORKER [employer], [employer].; [employer], [employer]. 04-09-2018 15:03-0400 Body height 177.8 cm [facility] (scrib) [facility], Inc.; [employer] 04-09-2018 15:03-0400 Body mass index (BMI) [Ratio] 26.97 kg/m2 [facility] (scribe) [facility], Inc.; [employer] 04-09-2018 15:03-0400 Body surface area Derived from formula 2.03 m2 Hemanta Gogoi (scribe) [facility], Inc.; [employer] 04-09-2018 15:03-0400 Body weight 85.28 kg Hemanta Gogoi (scribe) [facility], Inc.; [employer] 04-09-2018 15:03-0400 Diastolic blood pressure 56 mm[Hg] Hemanta Gogoi (scribe) [employer] 04-09-2018 15:03-0400 Heart rate 63 /min Hemanta Gogoi (scribe) [employer] 04-09-2018 15:03-0400 Systolic blood pressure 98 mm[Hg] Hemanta Gogoi (scribe) [employer].; [employer] 09-11-2017 11:12-0500 Body height 177.8 cm Gris Reyes RADIATION CONTR[employer] WORKER [employer], [employer] 09-11-2017 11:12-0500 Body mass index (BMI) [Ratio] 32.86 kg/m2 Debby Gamewell RADIATION CONTROL WORKER [employer], [employer].; [employer] 09-11-2017 11:12-0500 Body surface area Derived from formula 2.21 m2 Debby Gamewell RADIATION CONTROL WORKER [employer] 09-11-2017 11:12-0500 Body weight 103.87 kg Debby Gamewell RADIATION CONTROL WORKER [employer] 09-11-2017 11:12-0500 Diastolic blood pressure 82 mm[Hg] Debby Gamewell RADIATION CONTROL WORKER [employer] 09-11-2017 11:12-0500 Heart rate 73 /min Debby Gamewell RADIATION [employer] WORKER [employer] 09-11-2017 11:12-0500 Systolic blood pressure 140 mm[Hg] Gris Reyes ROJAS [facility] [employer] 09-01-2017 10:13-0500 Body height 177.8 cm [facility], [facility].; [employer] 09-01-2017 10:13-0500 Body mass index (BMI) [Ratio] 32.57 kg/m2 [facility]o Nael [facility]) [facility], Inc.; [employer]. 09-01-2017 10:13-0500 Body surface area Derived from formula 2.2 m2 Alo Nael [facility]) [facility], Inc.; [employer]. 09-01-2017 10:130500 Body weight 102.97 kg Alomu [facility]anaWay[facility] Hospitalscar) [facility], [employer]. 09-01-2017 10:13-0500 Diastolic blood pressure 68 mm[Hg] Alo [facility]anaWay[facility] Hospitalscar) [place] [facility], Inc.; [employer]. 09-01-2017 10:13-0500 Systolic blood pressure 122 mm[Hg] Alomu Nayak ([facility]) [place] [facility], [employer] 08-24-2017 09:47-0500 Body height 177.8 cm Gaby Mathias RN [place] [facility].; [employer] 08-24-2017 09:47-0500 Body mass index (BMI) [Ratio] 33.43 kg/m2 Gaby Mathias RN [place] [facility].; [employer]. 08-24-2017 09:47-0500 Body surface area Derived from formula 2.23 m2 Gaby Mathias RN [facility].; [employer]. 08-24-2017 09:47-0500 Body temperature 98.6 [degF] Gaby Mathias RN [place] [facility].; [employer] 08-24-2017 09:47-0500 Body weight 105.69 kg Gaby Mathias RN [place] [facility].; [employer] 08-24-2017 09:47-0500 Diastolic blood pressure 76 mm[Hg] Gaby [facility] RN [facility] [employer] 08-24-2017 09:47-0500 Heart rate 74 /min Gaby Mathias RN [facility] [employer] 08-24-2017 09:47-0500 Systolic blood pressure 144 mm[Hg] Gaby Mathias RN [place] [facility].; [employer] 03-13-2017 14:21-0400 Body height 177.8 cm Alo [facility] Hospitalibe) [place] [facility], Inc.; [employer]. 03-13-2017 14:21-0400 Body mass index (BMI) [Ratio] 31.85 kg/m2 Alo Nayak (Scribe) [facility], Inc.; [employer] 03-13-2017 14:21-0400 Body surface area Derived from formula 2.18 m2 Alomu Nayak (Scribe) [place] [facility].; [employer] 03-13-2017 14:21-0400 Body weight 100.7 kg Alomu Nayak (Scribe) [facility], Inc.; [employer] 03-13-2017 14:21-0400 Diastolic blood pressure 84 mm[Hg] Alo TrianaScribe) [facility], Inc.; [employer] 03-13-2017 14:21-0400 Heart rate 69 /min Alo TrianaScribjeny) [place] [facility], Inc.; [employer] 03-13-2017 14:21-0400 Systolic blood pressure 138 mm[Hg] Alo TrianaScribe) [facility], Inc.; [employer], [employer]. 03-03-2017 10:57-0400 Body height 177.8 cm Alo Noguera) [place] [facility], Inc.; [employer] 03-03-2017 10:57-0400 Body mass index (BMI) [Ratio] 32.71 kg/m2 Alo Nayak (Scribe) [employer].; [employer] [facility]. 03-03-2017 10:57-0400 Body surface area Derived from formula 2.21 m2 Alo Nael (Scribe) [facility], [facility].; [employer]. 03-03-2017 10:57-0400 Body weight 103.42 kg Alo Nayak (Scribe) [facility], Inc.; [employer]. 03-03-2017 10:57-0400 Diastolic blood pressure 78 mm[Hg] Alo Nayak (Scribe) [place] [facility], Inc.; [employer]. 03-03-2017 10:57-0400 Heart rate 62 /min Alo Nael (Scribe) [place] [facility], Inc.; [employer]. 03-03-2017 10:57-0400 Systolic blood pressure 146 mm[Hg] Alo Nayak (Scribe) [place] [facility], Inc.; [employer]. 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.; [employer] 08-15-2016 10:45-0500 Body mass index (BMI) [Ratio] 32.43 kg/m2 Cindy K Mutersbaugh RADIATION [employer] WORKER [facility], Inc.; [employer] 08-15-2016 10:45-0500 Body surface area Derived from formula 2.2 m2 Cindy K Mutersbaugh RADIATION CONTROL WORKER [facility] Inc.; [employer]. 08-15-2016 10:45-0500 Body weight 102.51 kg Cindy K Mutersbaugh RADIATION CONTROL WORKER [employer].; [employer] 08-15-2016 10:45-0500 Diastolic blood pressure 86 mm[Hg] Cindy K Mutersbaugh RADIATION CONTROL WORKER [employer], [employer]. 08-15-2016 10:45-0500 Heart rate 70 /min Cindy K Mutersbaugh RADIATION CONTROL WORKER [employer]. 08-15-2016 10:45-0500 Systolic blood pressure 145 mm[Hg] Cindy K Mutersbaugh RADIATION CONTROL WORKER [facility], Inc.; [employer] 01-25-2016 13:03-0400 Body height 177.8 cm Cindy K Mutersbaugh RADIATION CONTROL WORKER [facility], Inc.; [employer] 01-25-2016 13:03-0400 Body mass index (BMI) [Ratio] 31.42 kg/m2 Cindy K Mutersbaugh RADIATION CONTROL WORKER [facility], Inc.; [employer] 01-25-2016 13:03-0400 Body surface area Derived from formula 2.17 m2 Cindy K Mutersbaugh RADIATION CONTROL WORKER [employer] 01-25-2016 13:03-0400 Body weight 99.34 kg Cindy K Mutersbaugh RADIATION CONTROL WORKER [employer] 01-25-2016 13:03-0400 Diastolic blood pressure 83 mm[Hg] Cindy K Mutersbaugh RADIATION CONTROL WORKER [employer] 01-25-2016 13:03-0400 Heart rate 57 /min [facility] [employer], [employer]. 01-25-2016 13:03-0400 Systolic blood pressure 107 mm[Hg] Cindy K Mutersbaugh RADIATION CONTROL WORKER [employer] 10-08-2015 10:56-0500 Body height 177.8 cm [facility] Inc.; [employer], [employer]. 10-08-2015 10:56-0500 Body mass index (BMI) [Ratio] 32.57 kg/m2 [facility], Inc.; [employer], [employer]. 10-08-2015 10:56-0500 Body surface area Derived from formula 2.2 m2 [facility] Inc.; [employer], [employer]. 10-08-2015 10:56-0500 Body weight 102.97 kg [facility] Inc[facility] [employer] 10-08-2015 10:56-0500 Diastolic blood pressure 78 mm[Hg] [facility] Inc[facility] [employer] 10-08-2015 10:56-0500 Heart rate 72 /min [facility] Inc[facility] [employer] 10-08-2015 10:56-0500 Systolic blood pressure 160 mm[Hg] [facility] Inc.; [employer] 04-09-2015 10:44-0400 Body height 177.8 cm Rox Starkey RADIATION CONTROL WORKER [facility] Inc.; [employer] 04-09-2015 10:44-0400 Body mass index (BMI) [Ratio] 31.71 kg/m2 [facility] Inc.; [employer] 04-09-2015 10:44-0400 Body surface area Derived from formula 2.18 m2 Rox Starkey RADIATION CONTROL WORKER [facility], Inc.; [employer], [employer]. 04-09-2015 10:44-0400 Body weight 100.25 kg [facility]ox [facility] [employer] 04-09-2015 10:44-0400 Diastolic blood pressure 73 mm[Hg] [facility]ox [facility] Inc.; [employer] 04-09-2015 10:44-0400 Heart rate 65 /min Rox Starkey RADIATION CONTROL WORKER [employer], [employer]. 04-09-2015 10:44-0400 Systolic blood pressure 141 mm[Hg] Rox [facility]key [facility] [employer], [employer]. 02-12-2015 08:08-0400 Body height 177.8 cm Amanda Guzman MD Work Phone: [employer]; [employer], [employer]. 02-12-2015 08:08-0400 Body mass index (BMI) [Ratio] 31.14 kg/m2 Amanda Guzman MD Work Phone: [employer] 02-12-2015 08:08-0400 Body surface area Derived from formula 2.16 m2 Amanda Guzman MD Work Phone: [employer].; [employer]. 02-12-2015 08:08-0400 Body weight 98.43 kg Amanda Guzman MD Work Phone: [employer] 02-12-2015 08:08-0400 Diastolic blood pressure 86 mm[Hg] Amanda Guzman MD Work Phone: [employer].; [employer]. 02-12-2015 08:08-0400 Heart rate 65 /min Amanda Guzman MD Work Phone: [employer].; [employer]. 02-12-2015 08:08-0400 Systolic blood pressure 128 mm[Hg] Amanda Guzman MD Work Phone: [employer] 12-30-2014 12:23-0400 Body height 177.8 cm Amanda Guzman MD Work Phone: [employer] 12-30-2014 12:23-0400 Body mass index (BMI) [Ratio] 31.32 kg/m2 Amanda Guzman MD Work Phone: [employer] 12-30-2014 12:23-0400 Body surface area Derived from formula 2.17 m2 Amanda Guzman MD Work Phone: [employer]; [employer] 12-30-2014 12:23-0400 Body weight 99 kg Amanda Guzman MD Work Phone: [employer]; [employer] 12-30-2014 12:23-0400 Diastolic blood pressure 84 mm[Hg] Amanda Guzman MD Work Phone: [employer]; [employer] 12-30-2014 12:23-0400 Heart rate 64 /min Amanda Guzman MD Work Phone: [employer]; [employer] 12-30-2014 12:23-0400 Systolic blood pressure 152 mm[Hg] Amanda Guzman MD Work Phone: [employer] 06-16-2014 11:03-0400 Body height 177.8 cm Ronald Bateman MD Work Phone: [employer]; [employer] 06-16-2014 11:03-0400 Body mass index (BMI) [Ratio] 30.56 kg/m2 Ronald Bateman MD Work Phone: [employer]; [employer] 06-16-2014 11:03-0400 Body surface area Derived from formula 2.14 m2 Ronald Btaeman MD Work Phone: [employer]; [employer] 06-16-2014 11:03-0400 Body weight 96.62 kg Ronald Bateman MD Work Phone: [employer]; [employer] 06-16-2014 11:03-0400 Diastolic blood pressure 80 mm[Hg] Ronald Bateman MD Work Phone: [employer]; [employer] 06-16-2014 11:03-0400 Heart rate 73 /min Ronald Bateman MD Work Phone: [employer]; [employer] 06-16-2014 11:03-0400 Systolic blood pressure 142 mm[Hg] Ronald Bateman MD Work Phone: [employer]; [employer] 05-30-2014 10:45-0400 Body height 177.8 cm Rox Starkey LPN [employer] 05-30-2014 10:45-0400 Body mass index (BMI) [Ratio] 30.71 kg/m2 Rox Starkey LPN [employer] 05-30-2014 10:45-0400 Body surface area Derived from formula 2.15 m2 Rox Starkey LPN [employer] 05-30-2014 10:45-0400 Body weight 97.07 kg Rox Starkey LPN [employer] 05-30-2014 10:45-0400 Diastolic blood pressure 97 mm[Hg] Rxo Starkey LPN [employer] 05-30-2014 10:45-0400 Heart rate 68 /min Rox Starkey LPN [employer] [employer] 05-30-2014 10:45-0400 Systolic blood pressure 169 mm[Hg] Rox Starkey LPN [employer] 12-16-2013 13:30-0400 Body weight 99.79 kg Ronald Bateman MD Work Phone: [employer] 12-16-2013 13:30-0400 Diastolic blood pressure 92 mm[Hg] Ronald Bateman MD Work Phone: [employer] 12-16-2013 13:30-0400 Heart rate 65 /min Ronald Bateman MD Work Phone: [employer]; [employer] 12-16-2013 13:30-0400 Systolic blood pressure 162 mm[Hg] Ronald Bateman MD Work Phone: [employer] [employer] 06-17-2013 10:30-0400 Body weight 99.34 kg Ronald Bateman MD Work Phone: [employer] 06-17-2013 10:30-0400 Diastolic blood pressure 78 mm[Hg] Ronald Bateman MD Work Phone: [employer] [facility] [employer] 06-17-2013 10:30-0400 Heart rate 71 /min Ronald Bateman MD Work Phone: [employer] 06-17-2013 10:30-0400 Systolic blood pressure 148 mm[Hg] Ronald Bateman MD Work Phone: [employer] 09-05-2012 11:09-0500 Body height 177.8 cm Gris Reyes [facility], [employer] 09-05-2012 11:09-0500 Body mass index (BMI) [Ratio] 31.57 kg/m2 [facility] Amy [facility], [employer] 09-05-2012 11:09-0500 Body surface area Derived from formula 2.17 m2 Debby Amy [facility], [employer] 09-05-2012 11:09-0500 Body temperature 98.3 [degF] Gris Reyes [facility], [employer] 09-05-2012 11:09-0500 Body weight 99.79 kg Debby Amy [facility], [employer] 09-05-2012 11:09-0500 Diastolic blood pressure 82 mm[Hg] Gris Ryees [facility], [employer] 09-05-2012 11:09-0500 Heart rate 65 /min Debby Amy [facility], [employer] 09-05-2012 11:09-0500 Inhaled oxygen concentration 20 % [facility] Amy [facility], [employer] 09-05-2012 11:09-0500 SaO2% (BldA) [Mass fraction] 98 % [facility] [employer] 09-05-2012 11:09-0500 Systolic blood pressure 165 mm[Hg] [facility] [employer] 08-09-2012 10:19-0500 Body height 177.8 cm Ronald Bateman MD Work Phone: [employer]; [employer] 08-09-2012 10:19-0500 Body mass index (BMI) [Ratio] 31.42 kg/m2 Ronald Bateman MD Work Phone: [employer]; [employer] 08-09-2012 10:19-0500 Body surface area Derived from formula 2.17 m2 Ronald Bateman MD Work Phone: [employer]; [employer] 08-09-2012 10:19-0500 Body weight 99.34 kg Ronald Bateman MD Work Phone: [employer]; [employer] 08-09-2012 10:19-0500 Diastolic blood pressure 80 mm[Hg] Ronald Bateman MD Work Phone: [employer]; [employer] 08-09-2012 10:19-0500 Heart rate 63 /min Ronald Bateman MD Work Phone: [employer]; [employer] 08-09-2012 10:19-0500 Systolic blood pressure 152 mm[Hg] Ronald Bateman MD Work Phone: [employer]; [employer] 02-15-2012 10:25-0400 Body height 177.8 cm Ronald Bateman MD Work Phone: [employer]; [employer] 02-15-2012 10:25-0400 Body mass index (BMI) [Ratio] 31.28 kg/m2 Ronald Bateman MD Work Phone: [employer]; [employer] 02-15-2012 10:25-0400 Body surface area Derived from formula 2.17 m2 Ronald Bateman MD Work Phone: [employer]; [employer] 02-15-2012 10:25-0400 Body weight 98.88 kg Ronald Bateman MD Work Phone: [employer]; [employer] 02-15-2012 10:25-0400 Diastolic blood pressure 84 mm[Hg] Ronald Bateman MD Work Phone: [employer]; [employer] 02-15-2012 10:25-0400 Heart rate 58 /min Ronald Bateman MD Work Phone: [employer]; [employer] 02-15-2012 10:25-0400 Systolic blood pressure 128 mm[Hg] Ronald Bateman MD Work Phone: [employer]; [employer] 01-28-2011 13:09-0400 Body weight 96.16 kg Edna Faria LPN [employer] 01-28-2011 13:09-0400 Diastolic blood pressure 81 mm[Hg] Edna Faria LPN [employer] 01-28-2011 13:09-0400 Heart rate 62 /min Edna Faria LPN [employer] 01-28-2011 13:09-0400 Systolic blood pressure 164 mm[Hg] Edna Faria LPN [employer] 11-08-2010 12:09-0500 Body weight 95.26 kg Ronald Bateman MD Work Phone: [employer]; [employer] 11-08-2010 12:09-0500 Diastolic blood pressure 95 mm[Hg] Ronald Bateman MD Work Phone: [employer]; [employer] 11-08-2010 12:09-0500 Heart rate 71 /min Ronald Bateman MD Work Phone: [employer]; [employer] 11-08-2010 12:09-0500 Systolic blood pressure 175 mm[Hg] Ronald Bateman MD Work Phone: [employer]; [employer] 10-04-2010 16:47-0500 Body temperature 98 [degF] Montserrat Chong [facility] [employer]; [employer] 10-04-2010 16:47-0500 Body weight 97.07 kg Montserrat Chong [facility] [employer]; [employer] 10-04-2010 16:47-0500 Diastolic blood pressure 92 mm[Hg] Montserrat Chong LPN [employer] 10-04-2010 16:47-0500 Heart rate 70 /min Montserrat Chong LPN [employer]; [employer] 10-04-2010 16:47-0500 Systolic blood pressure 191 mm[Hg] Montserrat Chong [facility] [employer]; [employer] Encounters Encounter Date Encounter Type Care Provider Facility Start: 11-01-2023 End: 11-01-2023 Kaylin Hui PA-C Work Phone: [employer] Start: 09-29-2023 End: 09-29-2023 ambulatory AMANDA ADAMS Facility:[facility] Start: 09-28-2023 End: 09-28-2023 ambulatory [facility] Start: 09-28-2023 End: 09-28-2023 Office outpatient visit 25 minutes Steff Muhammad MD Work Phone: [facility] Procedures Date Procedure Procedure Detail Performing Clinician Start: 08-31-2023 Ct abdomen w/contras t material Amanda Adams MD Work Phone: Start: 04-19-2023 Eeg extended monitor ing 61-119 minutes Steff Muhammad MD Work Phone: Start: 03-03-2023 End: 03-09-2023 Duplex scan extracranial art compl bi study Kaylin DAVISC Work Phone: Start: 01-05-2023 End: 01-05-2023 Adv care pln tlkd & alt dcsn maker docd Kaylin PEGUERO-C Work Phone: Start: 01-05-2023 End: 01-05-2023 Depression screening Kaylin PEGUERO -C Work Phone: Start: 01-05-2023 End: 01-05-2023 Falls risk assessment documented Kaylin PEGUERO-Radha Work Phone: Start: 01-05-2023 End: 01-05-2023 Pos clin depres scrn f/u doc Kaylin melendez PA-C Work Phone: Start: 01-05-2023 End: 01-05-2023 PPPS, subseq visit Kaylin PEGUERO- C Work Phone: Start: 01-05-2023 End: 01-05-2023 Pt falls assess docd 2/> falls/fall w/injury/yr Kaylin PEGUERO-C Work Phone: Start: 11-27-2022 End: 11-27-2022 EKG impression Audrey Hernandez Start: 09-27-2022 End: 09-27-2022 Pulmonary stress testing Sonu mittal MD Work Phone: Start: 09-27-2022 Radiologic exam swal low function contrast study Janneth Coffey MD Work Phone: Start: 07-07-2022 End: 07-07-2022 Lab findings surveillance Aleax Tavera Start: 07-07-2022 End: 07-07-2022 Alexa Vieyra MA Start: 12-30-2021 End: 12-30-2021 Prostate specific antigen measurement Alexa Vieyra MA Start: 12-30-2021 End: 12-30-2021 Alexa Vieyra MA Start: 12-27-2021 End: 12-27-2021 Depression screening Kaylin J Ez PEGUERO -C Work Phone: Start: 12-27-2021 End: 12-27-2021 Falls risk assessment documented Kaylin Yeni Hui PA-C Work Phone: Start: 12-27-2021 End: 12-27-2021 Pos clin depres scrn f/u doc Kaylin Jaime Tamar PEGUERO-C Work Phone: Start: 12-27-2021 End: 12-27-2021 PPPS, subseq visit Kaylin Yeni PEGUERO- C Work Phone: Start: 12-27-2021 End: 12-27-2021 Pt falls assess docd 2/> falls/fall w/injury/yr Kaylin Yeni PEGUERO-C Work Phone: Start: 11-17-2021 End: 11-18-2021 Radex ankle complete minimum 3 views Kaylin Jaime Ez PEGUERO-C Work Phone: Start: 05-12-2021 End: 05-12-2021 Alxea Vieyra MA Start: 12-07-2020 End: 12-09-2020 Radiologic examination tibia & fibula 2 views Breanna Yeni Baez PA-C Work Phone: Start: 10-26-2020 End: [...] 09-11-2017 Flu imm no admin doc martina Amanda Barnett Work Phone: Start: 09-01-2017 End: 09-01-2017 Body mass index documented Amanda Guzman MD Work Phone: Start: 09-01-2017 End: 09-01-2017 Flu imm no admin doc martina Amanda Barnett Work Phone: Start: 09-01-2017 End: 09-01-2017 [...] od, [place] Start: 05-31-2014 End: 05-31-2014 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/2 muscles Amanda Guzman MD [...] Referr ing Provider Unknown H/O: gastrostomy Judy Zau 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 H/O: gastrostomy Kaylin Pal miguel PA-C Work Phone: Implantation of auto matic cardiac defibrillator Alexa Vieyra MA Incision of trachea Referrin g Provider Unknown Insertion of pulse g enerator of implantable cardioverter defibrillator Referring Provider Unknown Plan of Treatment Date Care Activity Detail Author Start: 11-26-2025 DIABETES SCREEN DIABETES SCREEN [facility] Start: 11-26-2025 Diabetes Screening Diabetes Screening [facility] Start: 05-27-2025 DTaP/Tdap/Td Vaccines (2 - Td or Tdap) DTaP/Tdap/Td Vaccines (2 - Td or Tdap) [facility] Start: 05-16-2024 DIABETES SCREEN DIABETES SCREEN [facility] Start: 02-27-2024 End: 02-27-2024 Patient encounter procedure 02/27/2024 1:00 PM EDT Office Visit [facility] [address] [phone] Steff Muhammad MD [address] [address] [facility] Start: 09-28-2023 End: 09-28-2023 Patient encounter procedure 09/28/2023 1:30 PM EST Office Visit [facility] [address] [phone] Steff Muhammad MD [address] [address] [facility] Start: 08-30-2023 End: 11-29-2023 CREATININE BLD CREATININE BLD Lab Routine Chronic pancreatitis, unspecified pancreatitis type (HCC) Expected: 08/30/2023, Expires: 11/29/2023 [facility] Work Phone: Immunizations Immunization Date Immunization Notes Care Provider Navi morrissey 08-26-2022 Kalyin Hui PA-C [facility] Phone: [facility] 08-26-2022 influenza virus vaccine, unspecified formulation Steff Muhammad MD Work Phone: [facility] 07-27-2021 Moderna COVID-19 Vaccine 100 MCG/0.5ML Intramuscular Suspension Referring Provider Unknown PM-Oicsmbr-Awjhlj l 2100 Work Phone: 07-26-2021 Kaylin Hui PA-C Work Phone: [facility]. 07-13-2021 Fluzone High-Dose Quadrivalent 0.7 ML Intramuscular Suspension Prefilled Syringe Referring Provider Unknown LC-Rwwvcvi-Nlyefo l 2100 Work Phone: 07-13-2021 pneumococcal polysaccharide vaccine, 23 valent Referring Provider Unknown JO-Ykmyolm-Cwtlte l 2100 Work Phone: 12-03-2020 Moderna COVID-19 Vaccine 100 MCG/0.5ML Intramuscular Suspension Referring Provider Unknown [facility] 11-05-2020 Moderna COVID-19 Vaccine 100 MCG/0.5ML Intramuscular Suspension Referring Provider Unknown [place] [facility] 07-30-2020 zoster vaccine recombinant Sonu Riojas MD Work Phone: [facility] 07-16-2020 influenza, high dose seasonal, preservative-free Kaylin Hui PA-C Work Phone: [facility] [employer] 07-16-2020 influenza, high-dose , quadrivalent vaccine (FLUZONE HIGH DOSE QUADRIVALENT) Sonu Riojas MD Work Phone: [facility] 04-17-2020 zoster vaccine recombinant Sonu Riojas MD Work Phone: [facility] 08-02-2019 influenza, injectabl e, quadrivalent, contains preservative Sonu Riojas MD Work Phone: [facility] 09-14-2018 pneumococcal conjuga te vaccine, 13 valent Sonu Riojas MD Work Phone: [facility] 06-26-2018 influenza, injectabl e, quadrivalent, contains preservative Referring Provider Unknown [facility] 11-17-2017 influenza, high dose seasonal, preservative-free Sonu Riojas MD Work Phone: [facility] 05-27-2015 tetanus toxoid, redu thea diphtheria toxoid, and acellular pertussis vaccine, adsorbed Kaylin Hui PA-C Work Phone: [facility] NEGATED: Highlighted row has not occurred!05-16-2021 pneumococcal polysaccharide vaccine, 23 valent Sonu Riojas MD Work Phone: [facility] NEGATED: Highlighted row has not occurred! influenza, seasonal, injectable Kaylin Hui PA-C Work Phone: [facility]. Payers Date Payer Category Payer Unknown [place] SU[place] [id number] 2020-Present [phone] [address] [place] [address] Indemnity [id number] 2019 Unknown 2019 Unknown [id number] 2018 Private Health Insurance 2017 Medicare MEDICARE MEDICAR E A AND B [id number] 2017-Present [phone] [address] [address] [place] [address] Medicare [id number] 2017 Medicare [id number] 2017 Medicare [id number] 1950 Unknown [id number] 1950 Unknown [id number] 1950 Unknown [id number] 1950 Unknown [id number] 1950 Unknown [id number] 1950 Unknown [id number] .[id number] 1950 Unknown [id number] .[id number] Private Health Insurance [id number] Social History Date Type Detail Facility Tobacco smoking stat [facility] Unknown if ever smoked [facility] Start: 1950 Sex Assigned At Not on file [facility] Start: 05-03-2017 End: 07-27-2022 Tobacco smoking status FLIS Ex-smoker [facility] Work Phone: End: 05-03-2007 History of tobacco use Current smoker [facility] Work Phone: End: 05-03-2007 History of tobacco use Cigarette Smoker [facility] Work Phone: Start: 05-03-2017 End: 04-12-2023 Tobacco use and exposure Smokeless tobacco non-user [facility] Work Phone: Start: 06-16-2021 End: 09-28-2023 Alcohol intake Current drinker of alcohol (finding) [facility] Start: 06-16-2021 End: 04-12-2023 Alcohol intake [facility] Start: 07-14-2020 End: 07-27-2022 Tobacco Comment social smoker. [facility] Start: 1950 Sex Assigned At Male [facility] Start: 01-30-2022 End: 04-19-2023 Exposure to SARS-CoV-2 (event) Not sure [facility] Tobacco smoking consumption unknown [facility] Start: 09-27-2022 End: 04-12-2023 Tobacco use panel [facility] Start: 02-08-2021 Gender identity Identifies as male gender (finding) [facility] Start: 02-08-2021 Sexual orientation Heterosexual (finding) [facility] Start: 04-12-2023 Tobacco smoking status NHIS Never smoked tobacco [facility] National Score (1-10 0), lower number is lower risk 50 [facility] Never smoker. [facility] Medical Equipment Procedure Code Equipment Code Equipment Origin al Text Equipment Identifier Dates Kit Ponsky 20fr Silicone Peg Pull Method Safety Sterile - [id number] Start: 10-31-2017 Tube Bivona Tts 10.5mm 7.5mm Silicone 80mm Tracheostomy Cuffed Adult - [id number] Start: 10-31-2017 Clinical Notes 09-25-2017 to 09-29-2023 Steff Muhammad MD - 09/28/2023 1:30 PM ESTAddendum Note - Steff Muhammad MD - 09/28/2023 1:30 PM ESTAddendum Note - Steff Muhammad MD - 09/28/2023 1:30 PM Magi Stallings - 04/21/2023 8:37 AM EDT Note Date & Type Note Facility 09-29-2023 Note HNO ID: [id number] Author: AMANDA ADAMS MD Service: ? Author Type: Physician Type: Progress Notes Filed: 09/29/2023 07:46 Note Text: HPB PROGRESS NOTE: Patient Name: Amanda Newell Nirmal ASSESSMENT AND PLAN: 72 year old male [...] visit. Either the patient or their legal outbound telemarketing representative has been informed of the risks and benefits of -- and alternatives to -- treatment through a remote evaluation and consents to proceed with the evaluation remotely. Medical Decision Making: Problems: Low: Stable chronic illness Data: Unique source(s) for external note(s) reviewed: 2 Unique test result(s) reviewed: 2 Unique test(s) ordered: 1 Medical Decision Making Level: 3 - Low Je Adams MD B surgery Pager: [phone] [facility] 09-28-2023 Note Addended by: STEFF MUHAMMAD on: 09/28/2023 02:10 PM Modules accepted: Orders [facility] 09-28-2023 History of Present illness Narrative Images from the original note were not included. [facility] [address] [facility] [address] Dept: [phone] Dept Loc: [phone] Steff Muhammad MD CHIEF COMPLAINT: Chief Complaint [...] , Rfl: ergocalciferol (Vitamin D2) 1.25 MG (25312 UT) capsule, Take by mouth once a [...] , Rfl: ergocalciferol (Vitamin D-2) 1.25 MG (99426 UT) capsule, Take 1.25 mg by mouth [...] EEG Com MR MRA BRAIN OR NECK [place] [address] Patient: AMANDA KINNEY Phone#: : 1950 Age: 64 Gender: M Pt. Type: Out Account: [id number] Location: [facility] Ordering: ANIYA LOTT Exam Date: 06/24/2015/10:00 Family Phys: AMANDA GUZMAN Charge Code: [id number] Physician: Ellsworth Order #: [id number] DLP Dose#: PROCEDURE: MR ANGIOGRAPHY BRAIN WITHOUT [...] 64 Gender: M Pt. Type: Out Account: [id number] Location: [facility] Ordering: ANIYA LOTT Exam Date: 06/24/2015/10:0 [facility] RADIOLOGY REPORT Patient name: NIRMAL SCHNEIDER TranscrpIN: BRISA Acct number: [id number] Age: 60 Sex: MFinancial Class: CB2 date: 1950Stay type: O/PMed Rec Num: [id number] Admit date: 03/05/11Room: X-ray number:[id number] Disch date: 03/05/11Phone: Location: Admit Phys: JB FAJARDOOrder Num: [id number] Physician 2 : Ordering Phy: JB Dumont Phys: MR MRI BRAIN W/O CONTRAST [id number] COMPLETE:03/05/11 13:37 [id number] (REASON FOR TEST: ANEURYSM OR TUMOR *corrections, additions and/or subtractions to the information c ontained in this report.* RADIOLOGY REPORT NIRMAL SCHNEIDER 1 \CNTo\ MRI OF THE BRAIN [...] 03.07.11 MR MRA BRAIN OR NECK WO [facility] RADIOLOGY REPORT Patient name: NIRMAL SCHNEIDER TranscrpIN: BRISA Acct number: [id number] Age: 60 Sex: MFinancial Class: CB2 date: 1950Stay type: O/PMed Rec Num: [id number] Admit date: 03/05/11Room: X-ray number:[id number] Disch date: 03/05/11Phone: Location: Admit Phys: JB FAJARDOOrder Num: [id number] Physician 2 : Ordering Phy: JB Dumont Phys: MR MRA BRAIN OR NECK WO CONTR [id number] COMPLETE:03/05/11 13:37 JLW [id number] (REASON FOR TEST: ANEURYSM OR TUMOR Unsigned transcriptions represent a preliminary report and do not reflect *corrections, additions and/or subtractions to the information c ontained in this report.* RADIOLOGY REPORT CLOSE R WYATT 1 \CNTo\ MRA OF THE BRAIN Images were obtained in multiple phases without contrast. The carotid and basilar artery are normal in caliber. The [place] of [place] is unremarkable in configuration. 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 OSH CT brain demonstrated moderated global anoxic brain injury and EEG demonstrated profound cortical dysfunction. Transfer to F for further management. BEM started on 10/08/17 [...] 11/04/17 Last Resulted: 11/05/17 11:02 Received From: [facility] Result Received: 04/11/23 22:23 CBC: No results [...] TSH VITAMIN B12: No results found for: [id number] FERRITIN: No results found for: FERRITIN ---- [...] , Rfl: ergocalciferol (Vitamin D-2) 1.25 MG (06943 UT) capsule, Take 1.25 mg by mouth [...] electrodes were positioned in person by an optometric technologist, following patient education, according to the 10-20 International system of electrode placement and maintained for integrity and quality of the recording. EEG data with video was recorded continuously and digitally stored. The optometric technologist reviewed all automated detections and manual [...] IMMUNOGLOBUL , OLIGOBANDS No results found for: NME45KE , HEPCAB No results found for: CRP [...] Morin. 40 minutes documented in this encounter [facility] 09-28-2023 Miscellaneous Notes Addended by: STEFF MUHAMMAD on: 09/28/2023 02:10 PM Modules accepted: Orders documented in this encounter [facility] 09-28-2023 Note Addended by: STEFF MUHAMMAD on: 09/28/2023 02:10 PM Modules accepted: Orders [facility] 09-28-2023 Note Addended by: STEFF MUHAMMAD on: 09/28/2023 02:10 PM Modules accepted: Orders [facility] 09-16-2023 Note . MICRO - Microbiology PROCEDURE: [...] Order Comments O1: Blood Culture (bacterial) fax [phone] Performing Locations *1: This test was performed at: [facility], [address] [place] [address], [id number] , [facility] 08-31-2023 Note HNO ID: [id number] Author: Gaby Chris RT(R) Service: ? Author Type: Skiver Counter Type: Progress Notes Filed: 08/31/2023 3:14 PM [...] Pancreas SIGNATURE: RT Demetrius(R) PATIENT NAME: Amanda Newell Close DATE: August 31, 2023 TIME: 3:13 PM [facility] 08-31-2023 History of Present illness Narrative Radiology [...] Pancreas SIGNATURE: RT Demetrius(R) PATIENT NAME: Amanda Newell Close DATE: August 31, 2023 TIME: 3:13 PM documented in this encounter [facility] 08-29-[address] Please place order for stat creatinine order for pt , pt appt 08/31/[address] I will call pt when it is placed documented in this encounter [facility] 06-20-2023 History of Present illness Narrative Images from the original note were not included. [facility] [address] [facility] [address] Dept: [phone] Dept Loc: [phone] Steff Muhammad MD Patient was seen today [...] stated that they are currently in the [facility]. If the patient is a minor, permission [...] , Rfl: ergocalciferol (Vitamin D-2) 1.25 MG (83415 UT) capsule, Take 1.25 mg by mouth [...] EEG Com MR MRA BRAIN OR NECK [place] [address] Patient: AMANDA KINNEY Phone#: : 1950 Age: 64 Gender: M Pt. Type: Out Account: [id number] Location: [facility] Ordering: ANIYA LOTT Exam Date: 06/24/2015/10:00 Family Phys: AMANDA GUZMAN Charge Code: [id number] Physician: Ellsworth Order #: [id number] DLP Dose#: PROCEDURE: MR ANGIOGRAPHY BRAIN WITHOUT [...] 64 Gender: M Pt. Type: Out Account: [id number] Location: [facility] Ordering: ANIYA LOTT Exam Date: 06/24/2015/10:0 [facility] RADIOLOGY REPORT Patient name: NIRMAL SCHNEIDER TranscrpIN: BRISA Acct number: [id number] Age: 60 Sex: MFinancial Class: CB2 date: 1950Stay type: O/PMed Rec Num: [id number] Admit date: 03/05/11Room: X-ray number:[id number] Disch date: 03/05/11Phone: Location: Admit Phys: JB FAJARDOOrder Num: [id number] Physician 2 : Ordering Phy: JB Dumont Phys: MR MRI BRAIN W/O CONTRAST [id number] COMPLETE:03/05/11 13:37 [facility] 19792 (REASON FOR TEST: ANEURYSM OR TUMOR *corrections, additions and/or subtractions to the information c ontained in this report.* RADIOLOGY REPORT NIRMAL SCHNEIDER 1 \CNTo\ MRI OF THE BRAIN [...] 03.07.11 MR MRA BRAIN OR NECK WO CONTRAST [facility] RADIOLOGY REPORT Patient name: NIRMAL SCHNEIDER TranscrpIN: BRISA Acct number: [id number] Age: 60 Sex: MFinancial Class: CB2 date: 1950Stay type: O/PMed Rec Num: [id number] Admit date: 03/05/11Room: X-ray number:[id number] Disch date: 03/05/11Phone: Location: Admit Phys: JB FAJARDOOrder Num: [id number] Physician 2 : Ordering Phy: JB Dumont Phys: MR MRA BRAIN OR NECK WO CONTR [id number] COMPLETE:03/05/11 13:37 JLW [id number] (REASON FOR TEST: ANEURYSM OR TUMOR Unsigned transcriptions represent a preliminary report and do not reflect *corrections, additions and/or subtractions to the information c ontained in this report.* RADIOLOGY REPORT NIRMAL SCHNEIDER 1 \CNTo\ MRA OF THE BRAIN Images were obtained in multiple phases without contrast. The carotid and basilar artery are normal in caliber. The [place] of [place] is unremarkable in configuration. The [...] Exam End: -- Specimen Collected: 11/03/17 13:43 [facility] Epilepsy Center Bedside Video EEG Monitoring Patient: Amanda Kinney - [id number] Date: 04 Nov 2017 Requested by: Ramesh [...] 11/04/17 Last Resulted: 11/05/17 11:02 Received From: [facility] Result Received: 04/11/23 22:23 CBC: No results [...] TSH VITAMIN B12: No results found for: [id number] FERRITIN: No results found for: FERRITIN ---- [...] , Rfl: ergocalciferol (Vitamin D-2) 1.25 MG (81210 UT) capsule, Take 1.25 mg by mouth [...] electrodes were positioned in person by an optometric technologist, following patient education, according to the 10-20 International system of electrode placement and maintained for integrity and quality of the recording. EEG data with video was recorded continuously and digitally stored. The optometric technologist reviewed all automated detections and manual [...] IMMUNOGLOBUL , OLIGOBANDS No results found for: ESH32EJ , HEPCAB No results found for: CRP , ANATITER , ANCA MRI at [facility] in April per report: Chronic small [...] arranging for studies. documented in this encounter [facility] 05-25-2023 Note Office received [facility] records request via fax from [facility]. Please see patient's chart. H&P, EEG report and Last progress note faxed today to [facility] to fax number- [phone]. [facility] 04-21-2023 Note HNO ID: [id number] Author: Magi Quintero Service: ? Author Type: ? Type: Progress Notes Filed: 04/21/2023 10:15 AM Note Text: HPB - OUTPATIENT CLINIC NOTE PATIENT NAME: Amanda Kinney DATE of SERVICE: April 21, 2023 TIME of SERVICE: 8:38 AM PCP: Kaylin Hui Mr. 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 PMHx includes GA s/p CABG, CAD, CHF, HTN, HLD and [...] Patient was seen as an outpatient at [facility] on 05/03/17 for this neuroendocrine tumor, at which time the recommendations were MRCP and follow-up in 6 months with imaging. The patient was subsequently lost to follow-up, and we have no records of an MRCP. 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 PMHx is remarkable for GA s/p CABG, CAD, CHF, HTN, HLD and [...] of the neuroend (more content not included)... [facility] 04-21-2023 History and physical note INITIAL PANCREATIC CANCER PATIENT NAME: Amanda Kinney DATE of SERVICE: 04/21/2023 TIME of SERVICE: 10:05 AM PCP: Kaylin Hui This consult was requested by No ref. provider found for evaluation of pancreatic cyst(s) My final recommendations will be communicated to the requesting health care provider by way of the shared medical record or [place] postal services. HPI: Mr. Kinney is a 72 year old male who presents for a pancreatic neuroendocrine tumor, non-functional. The pNET was initially found in 2013 and it measured 1.2cm at that time. It was found incidentally on a chest CT. The last imaging we have is from 2017 when it measured 1.5cm. He got lost [...] 2018 Heart disease High cholesterol HTN (hypertension) GA, old 2013 no surgery, no stents PAST [...] Amanda Adams MD documented in this encounter [facility] 04-21-2023 History of Present illness Narrative HPB - OUTPATIENT CLINIC NOTE PATIENT NAME: Amanda Kinney DATE of SERVICE: April 21, 2023 TIME of SERVICE: 8:38 AM PCP: Kaylin Hui Mr. 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 PMHx includes GA s/p CABG, CAD, CHF, HTN, HLD and [...] Patient was seen as an outpatient at [facility] on 05/03/17 for this neuroendocrine tumor, at which time the recommendations were MRCP and follow-up in 6 months with imaging. The patient was subsequently lost to follow-up, and we have no records of an MRCP. 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 PMHx is remarkable for GA s/p CABG, CAD, CHF, HTN, HLD and [...] Magi Quintero, MS4 documented in this encounter [facility] 04-21-2023 Nurse Note What is the reason for your visit today? Consult Who is your referring physician? Dr. Adams Are you having poor oral intake? NO Have you had unintentional weight loss of 15 lbs/7 Kg in the last 3-6 months? NO Bowels: regular Wound: clean & dry Temperature: No Drains: No documented in this encounter [facility] 04-19-2023 Note EEG REPORT Patient Name: Amanda [...] , Rfl: ergocalciferol (Vitamin D-2) 1.25 MG (94939 UT) capsule, Take 1.25 mg by mouth [...] electrodes were positioned in person by an optometric technologist, following patient education, according to the 10-20 International system of electrode placement and maintained for integrity and quality of the recording. EEG data with video was recorded continuously and digitally stored. The optometric technologist reviewed all automated detections and manual [...] is a normal awake and asleep EEG. [facility] 04-19-2023 Procedure note Associated Ord er(s): EEG [...] , Rfl: ergocalciferol (Vitamin D-2) 1.25 MG (22059 UT) capsule, Take 1.25 mg by mouth [...] electrodes were positioned in person by an optometric technologist, following patient education, according to the 10-20 International system of electrode placement and maintained for integrity and quality of the recording. EEG data with video was recorded continuously and digitally stored. The optometric technologist reviewed all automated detections and manual [...] is a normal awake and asleep EEG. T [facility] 04-19-2023 Procedure note Associated Ord [...] , Rfl: ergocalciferol (Vitamin D-2) 1.25 MG (62152 UT) capsule, Take 1.25 mg by mouth [...] electrodes were positioned in person by an optometric technologist, following patient education, according to the 10-20 International system of electrode placement and maintained for integrity and quality of the recording. EEG data with video was recorded continuously and digitally stored. The optometric technologist reviewed all automated detections and manual [...] and asleep EEG. documented in this encounter [facility] 04-12-2023 History of Present illness Narrative Images from the original note were not included. [facility] NEUROSCIENCE [address] [facility] [address] [facility] [address] Dept: [phone] Dept Loc: [phone] Steff Muhammad MD Thank you for your [...] a past medical history of Cardiac arrest ([facility]), Congestive heart failure (CHF) ([facility]/HCC) ([facility]), Stroke ([facility]), and Syncope. Past Surgical History: has a [...] , Rfl: ergocalciferol (Vitamin D-2) 1.25 MG (76723 UT) capsule, Take 1.25 mg by mouth [...] EEG Com MR MRA BRAIN OR NECK [place] [address] Patient: AMANDA KINNEY Phone#: : 1950 Age: 64 Gender: M Pt. Type: Out Account: [id number] Location: [facility] Ordering: ANIYA LOTT Exam Date: 06/24/2015/10:00 Family Phys: AMANDA GUZMAN Charge Code: [id number] Physician: Ell[place] Order #: [id number] DLP Dose#: PROCEDURE: MR ANGIOGRAPHY BRAIN WITHOUT [...] 64 Gender: M Pt. Type: Out Account: [id number] Location: 010 Ordering: ANIYA LOTT Exam Date: 06/24/2015/10:0 [facility] RADIOLOGY REPORT Patient name: NIRMAL SCHNEIDER TranscrpIN: [facility] Acct number: [id number] Age: 60 Sex: MFinancial Class: CB2 date: 1950 type: O/PMed Rec Num: [id number] Admit date: 03/05/11Room: X-ray number:[id number] Disch date: 03/05/11Phone: Location: Admit Phys: JB FAJARDOOrder Num: [id number] Physician 2 : Ordering Phy: JB Dumont Phys: MR MRI BRAIN W/O CONTRAST [id number] COMPLETE:03/05/11 13:37 JLW [id number] (REASON FOR TEST: ANEURYSM OR TUMOR *corrections, additions and/or subtractions to the information c ontained in this report.* RADIOLOGY REPORT NIRMAL SCHNEIDER 1 \CNTo\ MRI OF THE BRAIN [...] 03.07.11 MR MRA BRAIN OR NECK WO CONTRAST [facility] RADIOLOGY REPORT Patient name: NIRMAL SCHNEIDER TranscrpIN: KLL Acct number: [id number] Age: 60 Sex: MFinancial Class: CB2 date: 1950[facility] type: O/PMed Rec Num: [id number] Admit date: 03/05/11Room: X-ray number:[id number] Disch date: 03/05/11Phone: Location: Admit Phys: JB FAJARDOOrder Num: [id number] Physician 2 : Ordering Phy: JB Dumont Phys: MR MRA BRAIN OR NECK WO CONTR [id number] COMPLETE:03/05/11 13:37 JLW [id number] (REASON FOR TEST: ANEURYSM OR TUMOR Unsigned transcriptions represent a preliminary report and do not reflect *corrections, additions and/or subtractions to the information c ontained in this report.* RADIOLOGY REPORT CLOSE R WYATT 1 \CNTo\ MRA OF THE BRAIN Images were obtained in multiple phases without contrast. The carotid and basilar artery are normal in caliber. The [place] of [place] is unremarkable in configuration. The [...] Exam End: -- Specimen Collected: 11/03/17 13:43 [facility], Epilepsy Center Bedside Video EEG Monitoring Patient: Amanda Kinney - [id number] Date: 04 Nov 2017 Requested by: Ramesh [...] 11/04/17 Last Resulted: 11/05/17 11:02 Received From: [facility] Result Received: 04/11/23 22:23 CBC: No results [...] TSH VITAMIN B12: No results found for: [id number] FERRITIN: No results found for: FERRITIN ---- No results found for: PHENYTOIN, PHENOBARB, VALPROATE, CBMZ No components found for: TOPIRANo results found for: OXCARBAZE, OXCARB @LASTAPPOINTMENTTHISPROV@ No image results found. @RESULTINGLABINFO@ No results found for: LEVETIRACETA, FERRITIN, CRP, RIANA, ANCA No results found for: GERARD, IMMUNOGLOBUL, OLIGOBANDS No results found for: FTF99SK, HEPCAB No results found for: CRP, ANATITER, [...] arranging for studies. documented in this encounter [facility] 04-03-2023 Miscellaneous Notes Records and images request faxed to [facility] / [phone] Records scanned in from referring office. documented in this encounter [facility] 03-30-2023 Miscellaneous Notes Spoke with , device is MRI compatible. Pt does follow routinely in [place] per . She will have the facility doing the MRI to contact that clinic for the most updated device information as [facility] device clinic has not seen the patient since 2020. documented in this encounter [facility] 03-23-2023 Miscellaneous Notes Received referral fax for patient, scanned into epic. Pt needs referred to Filemon Adams at [facility] per Dr. Randhawa. Referral and physician info given to PSS for scheduling. Lorna Nath RN documented in this encounter [facility] 10-04-2022 Note HNO ID: [id number] Author: Sonu Riojas MD Service: ? Author Type: Physician Type: Progress Notes Filed: 10/04/2022 10:03 AM Note Text: pulm rehab [facility] 10-04-2022 Note HNO ID: [id number] Author: Montserrat De León Historical Interpreter Service: ? Author Type: Historical Interpreter Type: Progress Notes Filed: 10/04/2022 9:12 AM Note Text: Order for pulmonary rehabilitation faxed to [place] pulmonary rehab on 10/04/22 Montserrat De León MS, [facility] 10-04-2022 History of Present illness Narrative pulm rehab documented in this encounter [facility] 10-04-2022 History of Present illness Narrative Order for pulmonary rehabilitation faxed to [place] pulmonary [facility]hab on 10/04/22 Montserrat De León MS, [facility] documented in this encounter [facility] 09-27-2022 History of Present illness Narrative Established [...] 2018 Heart disease High cholesterol HTN (hypertension) GA, old 2013 no surgery, no stents PAST SURGICAL HISTORY Procedure Laterality Date ANESTH,PACEMAKER INSERTION with AICD CABG (5) VENOUS GRAFTS & ARTERIAL GRAFT(S) 09/2017 EPS: SVT ABLATION 10/2017 x2 FEEDING TUBE-SPECIFY 2018 now removed HEART CATHETERIZATION 2014 PAST SURGICAL HISTORY OF 09/2002 Hemorrhoidectomy TRACHEOSTOMY [...] Sonu Riojas MD documented in this encounter [facility] 09-27-2022 History of Present illness Narrative PULM FUNCTION SMARTBLOCK: Provider: Sonu Riojas MD Spirometry: 1 6 MW: 1 System: MC6 - [id number] documented in this encounter [facility] 09-27-2022 Procedure note Associated Ord er(s): SIX [...] SIGNATURE: Jd Mccollum RRT PATIENT NAME: Amanda Kinney DATE: September 27, 2022 TIME: 11:51 AM [...] SIGNATURE: Jd Brewster MD PATIENT NAME: Amanda Kinney DATE: September 27, 2022 TIME: 1:00 PM documented in this encounter [facility] 09-27-2022 History of Present illness Narrative [facility] Speech Pathology Consult Modified Barium Swallow [...] / Dr. Rollins as needed Stephanie Barnhart M.S., CCC-SMOKEHOUSE WORKER Clinical Speech Pathologist Pager: [phone] Voicemail: [phone] DIAGNOSIS / HISTORY: Amanda Kinney is a [...] 2018 Heart disease High cholesterol HTN (hypertension) GA, old 2013 no surgery, no stents PAST [...] / Barium mixture Pudding mixed with Barium [place] thick Barium liquid Thin Barium liquid LIQUIDS [...] Treatment Plan Date: 09/27/2022 Stephanie Barnhart M.S., CCC-SMOKEHOUSE WORKER Clinical Speech Pathologist Pager: [phone] Voicemail: [phone] documented in this encounter [facility] 09-27-2022 History of Present illness Narrative Radiology [...] 2022 9:23 AM documented in this encounter [facility] 09-23-2022 History of Present illness Narrative IP Clinical Coordinator Pre-Visit Chart Review Date of Visit: 09/27/22 Type of Visit: Est Summary of Reason for Visit: Follow Up Needed Testing Prior to Visit: PFTs and barium swallow scheduled scheduled prior to visit; same day Notes: Vita Park MSN, RN, CCRN-K Interventional Pulmonary Clinical Coordinator documented in this encounter [facility] 07-27-2022 Nurse Note Tobacco Use: Quit 05/03/2007. Types: Cigarettes Was smoking cessation packet given? N/A - Patient is a non-smoker or quit >1 year ago. Was a referral initiated?N/A Patient is a non-smoker documented in this encounter [facility] 07-27-2022 History of Present illness Narrative Images [...] artery disease) CVA (cerebral vascular accident) (HCC) 2017 Heart disease High cholesterol HTN (hypertension) GA, old 2013 no surgery, no stents PAST [...] the history and physical exam of Amanda Reece Nirmal. I discussed the management of Amanda Kinney [...] 4 - Moderate documented in this encounter [facility] 04-26-2022 History of Present illness Narrative Images from the original note were not included. Interventional Pulmonary Languages And Literature Instructor Note OV Date: 05/10/22 Date of last visit: 03/15/22 RECOMMENDATION/PLAN FROM LAST VISIT Vita Park MSN, RN, CCRN-K Interventional Pulmonary Clinical Coordinator documented in this encounter [facility] 03-22-2022 History of Present illness Narrative Clinical [...] this note on to the consulting physician Languages And Literature Instructor Follow up >FU OV set for 05/10/22 >Consult request to [place] and noted Vita Park MSN, RN, CCRN-K Interventional Pulmonary Clinical Coordinator documented in this encounter [facility] 03-15-2022 Miscellaneous Notes Spoke to patient and spouse, scheduled a established patient visit for 05/10/22 documented in this encounter [facility] 03-15-2022 History of Present illness Narrative Established patient here for follow-up evaluation. Here for a follow-up evaluation. I can't get my breath Was at yesterday and had a sniff test done-they [...] 2018 Heart disease High cholesterol HTN (hypertension) GA, old 2013 no surgery, no stents PAST SURGICAL HISTORY Procedure Laterality Date ANESTH,PACEMAKER INSERTION with AICD CABG (5) VENOUS GRAFTS & ARTERIAL GRAFT(S) 09/2017 EPS: SVT ABLATION 10/2017 x2 FEEDING TUBE-SPECIFY 2018 now removed HEART CATHETERIZATION 2013 PAST SURGICAL HISTORY OF 09/2002 Hemorrhoidectomy TRACHEOSTOMY HX 2018 FAMILY HISTORY Problem Relation Age of Onset [...] Sonu Riojas MD documented in this encounter [facility] 03-11-2022 History of Present illness Narrative Interventional Pulmonary Languages And Literature Instructor Note OV Date: 03/15/22 Date of last [...] Pulmonary Clinical Coordinator documented in this encounter [facility] 02-18-2022 Miscellaneous Notes Images from the original note were not included. 02/18/22- Received and scanned in outside medical records documented in this encounter [facility] 02-09-2021 Note HNO ID: [id number] Author: Brenda Nath MD, PhD Service: ? [...] was 25 minutes. Brenda Nath MD, PhD [facility] 02-09-2021 Note HNO ID: [id number] Author: Brenda Nath MD, PhD Service: ? Author Type: Physician Type: Progress Notes Filed: 02/09/2021 4:54 PM Note Text: See dictation [facility] 02-09-2021 Note HNO ID: [id number] Author: Brenda Nath MD, PhD Service: Thoracic Surgery Author Type: Physician Type: Progress Notes Filed: 02/18/2021 12:29 PM Note Text: [facility] Progress Note AMANDA KINNEY [facility]#: [id number] PATIENT TYPE: [facility] LOCATION: [facility] ORIGINATOR: Brenda Nath M.D. DATE OF SERVICE: [...] from them to proceed to tracheal resection. [facility] DOC: [id number] This note was partially generated using an outside nascar pit crew person service, and there may be some incorrect words, spellings, phrases, and punctuation that were not noted in checking the note before saving. [facility] documented as of this encounter (statuses as of 02/18/2022) [facility] History of Past illness Narrative* Problem Noted [...] of this encounter (statuses as of 03/11/2022) [facility] of [facility] Narrative* Problem Noted [...] of this encounter (statuses as of 03/15/2022) [facility] of [facility] Narrative* Problem Noted [...] of this encounter (statuses as of 03/15/2022) [facility] of [facility] Narrative* Problem Noted [...] of this encounter (statuses as of 03/22/2022) [facility] of [facility] Narrative* Problem Noted [...] of this encounter (statuses as of 04/26/2022) [facility] of [facility] Narrative* Problem Noted [...] of this encounter (statuses as of 07/27/2022) [facility] Narrative* Problem Noted [...] of this encounter (statuses as of 08/16/2022) [facility] Narrative* Problem Noted [...] of this encounter (statuses as of 09/28/2022) [facility] Narrative* Problem Noted [...] of this encounter (statuses as of 09/29/2022) [facility] Narrative* Problem Noted [...] of this encounter (statuses as of 09/29/2022) [facility] Narrative* Problem Noted [...] of this encounter (statuses as of 09/29/2022) [facility] of [facility] Narrative* Problem Noted [...] A/P: WBC 12.91, down from 14.44. BAL / + Pseudomonas aeruginosa. Cefepime 7 day course completed. ID signed off. Continue to monitor for s/s of infection. Symptomatic hypotension 10/09/2017 10/14/19 Overview: 10/09/2017: requiring NE to prevent hypotension. 10/10/2017: Changed to melchor to decrease beta effect. Anemic. Tx w PRBC. A/P Low dose neosyn. Wean as tolerated for MAP > 65 mmHg documented as of this encounter (statuses as of 09/29/2022) [facility] of [facility] Narrative* Problem Noted [...] of this encounter (statuses as of 10/04/2022) [facility] of [facility] Narrative* Problem Noted Date Resolved Date Upper GI bleed 10/15/2017 10/18/2017 Overview: 10/14/2017: early evening noted to have increased blood drainage from OGT. 10/16/2017: Heparin restarted at 1200 with no further episodes of bleeding. Pseudomonas aeruginosa infection 10/09/2017 11/14/2017 Overview: Pre admission leukocytosis (all cultures from OS NGTD). Had previously been on meropenem and [...] of this encounter (statuses as of 10/04/2022) [facility] Narrative* Problem Noted [...] of this encounter (statuses as of 10/17/2022) [facility] Narrative* Problem Noted [...] of this encounter (statuses as of 03/23/2023) [facility] Narrative* Problem Noted Date Resolved Date Upper GI bleed 10/15/2017 10/18/2017 Overview: 10/14/2017: early evening noted to have increased blood drainage from OGT. 10/16/2017: Heparin restarted at 1200 with no further episodes of bleeding. Pseudomonas aeruginosa infection 10/09/2017 11/14/2017 Overview: Pre admission leukocytosis (all cultures from OS NGTD). Had previously been on meropenem and [...] of this encounter (statuses as of 03/30/2023) [facility] Narr[facility]* Problem Noted [...] of this encounter (statuses as of 04/03/2023) [facility] N[facility]* Problem Noted [...] of this encounter (statuses as of 04/21/2023) [facility] Narrative* Problem Noted [...] of this encounter (statuses as of 08/30/2023) [facility] N[facility]* Problem Noted [...] of this encounter (statuses as of 09/01/2023) [facility] of [facility] Narrative* Mr Kinney had open heart surgery in Sep 2017. He initially did well and on the day of discharge had VT VF arrest. This was then followed by long course that included cardiac ablation, MV, tracheostomy. He was in [facility] and then SNF for several months. [...] breath, unable to bend over and breath, [id number] 2100 Work Phone: Chief complaint Narrative - ReportedPatient came in today accompanied by his for diaphragm evaluation. Shortness of breath [id number] 2100 Work Phone: Evaluation note* Diagnosis Tracheal stenosis- Primary Other diseases of trachea and bronchus ALEXANDER (dyspnea on exertion) Other dyspnea and respiratory abnormality Obesity, Class I, BMI 30-34.9 Obesity, unspecified H/O: stroke Transient ischemic attack (TIA), and cerebral infarction without residual deficits Complex care coordination Diaphragm paralysis Disorders of diaphragm [facility] Cerebrovascular accident (CVA), unspecified mechanism (HCC)- Primary Odynophagia Dysphagia, unspecified Tracheal stenosis Other diseases of trachea and bronchus Tongue fasciculation Abnormal involuntary movements Tenderness of neck SOB (shortness of breath) Shortness of breath documented in this encounter [facility] note* Diagnosis Oropharyngeal dysphagia- Primary Dysphagia, oropharyngeal phase H/O: stroke Transient ischemic attack (TIA), and cerebral infarction without residual deficits Tracheal stenosis Other diseases of trachea and bronchus documented in this encounter [facility] note* Diagnosis Tracheal stenosis- Primary Other diseases of trachea and bronchus documented in this encounter [facility] note* Diagnosis Tracheal stenosis- Primary Other diseases of trachea and bronchus ALEXANDER (dyspnea on exertion) Other dyspnea and respiratory abnormality documented in this encounter [facility] note* Diagnosis Odynophagia Dysphagia, unspecified documented in this encounter [facility] note* Diagnosis Disease of lung- Primary Other diseases of lung, not elsewhere classified documented in this encounter [facility] note* Diagnosis Chronic obstructive pulmonary disease, unspecified COPD type (HCC)- Primary documented in this encounter [facility] note* Diagnosis Syncope and collapse- Primary Cough syncope Cough Other drug-induced secondary parkinsonism (HCC) documented in this encounter [facility] note* Diagnosis Syncope and collapse documented in this encounter [facility] note* Diagnosis Primary neuroendocrine tumor of pancreas- Primary documented in this encounter [facility] note* Diagnosis Syncope and collapse- Primary Parkinsonism, unspecified Parkinsonism type Cerebrovascular accident (CVA), unspecified mechanism (HCC) documented in this encounter [facility] note* Diagnosis Chronic pancreatitis, unspecified pancreatitis type (HCC)- Primary documented in this encounter [facility] note* Diagnosis Primary neuroendocrine tumor of pancreas documented in this encounter [facility] note* Diagnosis Cerebrovascular accident (CVA), unspecified mechanism (HCC)- Primary Gait disturbance Abnormality of gait Visual field loss following cerebrovascular accident documented in this encounter [facility] for referral (narrative)* Diagnostic Procedure Only (Routine) - Closed Specialty Diagnoses / Procedures Referred By Daisy dozier Referred To Contact XR IMAGING Diagnoses Odynophagia Procedures XR MODIFIED BARIUM SWALLOW W SPEECH THERAPY RADIOLOGIC EXAM SWALLOW FUNCTION CONTRAST STUDY [address] [place] [address] Xr Imaging Referral ID Status Reason Start Date Expiration Date V isits Requested Visits Authorized [id number] Closed Auto-Generate d Referral 07/27/2022 08/26/2023 1 1 [facility] for referral (narrative)* Consultation (Routine) - Pending Review Specialty Diagnoses / Procedures Referred By Contac t Referred To Contact Optometry Diagnoses Visual field loss following cerebrovascular accident Procedures AL OFFICE/OUTPATIENT NEW HIGH MDM 60 MINUTES Steff Muhammad MD [address] [place] [address] Eloy Morin, OD [address] [place] [address] Referral ID Status Reason Start Date Expiration Date Visits Requested Visits Authorized [id number] Pending Review Specialty Services Required 09/28/2023 09/27/2024 1 1 [facility] Purpose Family History Cerebrovascular Accident Status:Active [...] Documents on File Type Date Recorded 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 Advance Directive(s) 06/14/2021 1:48 PM Advance Directive(s) 04/13/2021 12:51 PM Advance Directive(s) 10/08/2017 3:33 PM Advance Directive(s) 03/23/2016 7:12 AM Advance Directive(s) 03/16/2016 12:30 PM Reason for Referral Specialty Diagnoses / Procedures Referred By Contac t Referred To Contact Neurology Diagnoses Cerebrovascular accident (CVA), unspecified mechanism (HCC) Procedures CONSULT TO NEUROLOGY OFFICE/OUTPATIENT [facility] 60-74 MINUTES [address] [place] [address] Referral ID Status Reason Start Date Expiration Date Visits Requested Visits Authorized [id number] Authorized PCP Requested Referral 07/27/2022 07/27/2023 1 1 Specialty Diagnoses / Procedures Referred By Contac t Referred To Contact XR IMAGING Diagnoses Odynophagia Procedures XR MODIFIED BARIUM SWALLOW W SPEECH THERAPY RADIOLOGIC EXAM SWALLOW FUNCTION CONTRAST STUDY [address] [place] [address] Xr Imaging Referral ID Status Reason Start Date Expiration Date Visits Requested Visits Authorized [id number] Pending Review Auto-Generat ed Referral 07/27/2022 08/26/2023 1 1 Specialty Diagnoses / Procedures Referred By Contac t Referred To Contact Radiology Diagnoses Syncope and collapse Procedures MR brain wo contrast Stfef Muhammad MD [address] [place] [address] [place] [address] Referral ID Status Reason Start Date Expiration Date V isits Requested Visits Authorized [id number] Pending Review 04/12/2023 10/09/2023 1 1 Specialty Diagnoses / Procedures Referred By Contac t Referred To Contact Diagnoses Syncope and collapse Procedures EEG extended more than 1 hour Steff Muhammad MD [address] [place] [address] Referral ID Status Reason Start Date Expiration Date V isits Requested Visits Authorized [id number] Incomplete 04/12/2023 10/09/2023 1 1 Specialty Diagnoses / Procedures Referred By Contac t Referred To Contact Neurology Diagnoses Syncope and collapse Procedures EEG extended more than 1 hour Steff Muhammad MD [address] [place] [address] Referral ID Status Reason Start Date Expiration Date Visits Re quested Visits Authorized [id number] Closed 04/12/2023 10/09/2023 1 1 Specialty Diagnoses / Procedures Referred By Contac t Referred To Contact CT IMAGING Diagnoses Primary neuroendocrine tumor of pancreas Procedures CT PANCREAS W IVCON CT ABDOMEN W/CONTRAST Amanda Adams MD [address] [place] [address] Ct Imaging Referral ID Status Reason Start Date Expiration Date Visits Requested Visits Authorized [id number] Pending Review Auto-Generat ed Referral 04/21/2023 05/20/2024 1 1 Specialty Diagnoses / Procedures Referred By Contac t Referred To Contact CT IMAGING Diagnoses Primary neuroendocrine tumor of pancreas Procedures CT PANCREAS W IVCON CT ABDOMEN W/CONTRAST Amanda Adams MD [address] [place] [address] Ct Imaging [place] [address] Referral ID Status Reason Start Date Expiration Date V isits Requested Visits Authorized [id number] Closed Auto-Generate d Referral 04/21/2023 05/20/2024 1 [...] DATE CREATED AUTHOR AUTHOR'S ORGANIZ ATION 05/15/2018 [facility] DATE CREATED AUTHOR AUTHOR'S ORGANIZ ATION 02/21/2021 [facility] DATE CREATED AUTHOR AUTHOR'S ORGANIZ ATION 03/15/2022 [employer] DATE CREATED AUTHOR AUTHOR'S ORGANIZ ATION 04/25/2022 [facility] DATE CREATED AUTHOR AUTHOR'S ORGANIZ ATION 11/29/2022 [facility] DATE CREATED AUTHOR AUTHOR'S ORGANIZ ATION 08/05/2023 [facility] DATE CREATED AUTHOR AUTHOR'S ORGANIZ ATION 09/17/2023 [facility] ([place] DATE CREATED AUTHOR AUTHOR'S ORGANIZ ATION 09/26/2023 [facility] DATE CREATED AUTHOR AUTHOR'S ORGANIZ ATION 09/30/2023 [facility] DATE CREATED AUTHOR AUTHOR'S ORGANIZ ATION 09/30/2023 [facility] Source Comments (unrecognize d section and content) In the event this informatio n is protected by the Federal Confidentiality of Alcohol and Drug Abuse Patient Records regulations: The Federal rules restrict any use of the information to criminally investigate or prosecute any alcohol or drug abuse patient.[facility] the event this information is protected by the Federal Confidentiality of Alcohol and Drug Abuse Patient Records regulations: The Federal rules restrict any use of the information to criminally investigate or prosecute any alcohol or drug abuse patient.[facility] CenterIn the event this information is protected by the Federal Confidentiality of Alcohol and Drug Abuse Patient Records regulations: The Federal rules restrict any use of the information to criminally investigate or prosecute any alcohol or drug abuse patient.[facility] CenterIn the event this information is protected by the Federal Confidentiality of Alcohol and Drug Abuse Patient Records regulations: The Federal rules restrict any use of the information to criminally investigate or prosecute any alcohol or drug abuse patient.[facility] CenterIn the event this information is protected by the Federal Confidentiality of Alcohol and Drug Abuse Patient Records regulations: The Federal rules restrict any use of the information to criminally investigate or prosecute any alcohol or drug abuse patient.[facility] CenterIn the event this information is protected by the Federal Confidentiality of Alcohol and Drug Abuse Patient Records regulations: The Federal rules restrict any use of the information to criminally investigate or prosecute any alcohol or drug abuse patient.[facility] Center[facility] the event this information is protected by the Federal Confidentiality of Alcohol and Drug Abuse Patient Records regulations: The Federal rules restrict any use of the information to criminally investigate or prosecute any alcohol or drug abuse patient.[facility] CenterIn the event this information is protected by the Federal Confidentiality of Alcohol and Drug Abuse Patient Records regulations: The Federal rules restrict any use of the information to criminally investigate or prosecute any alcohol or drug abuse patient.[facility] CenterIn the event this information is protected by the Federal Confidentiality of Alcohol and Drug Abuse Patient Records regulations: The Federal rules restrict any use of the information to criminally investigate or prosecute any alcohol or drug abuse patient.[facility] Center[facility] the event this information is protected by the Federal Confidentiality of Alcohol and Drug Abuse Patient Records regulations: The Federal rules restrict any use of the information to criminally investigate or prosecute any alcohol or drug abuse patient.[facility] CenterIn the event this information is protected by the Federal Confidentiality of Alcohol and Drug Abuse Patient Records regulations: The Federal rules restrict any use of the information to criminally investigate or prosecute any alcohol or drug abuse patient.[facility] CenterIn the event this information is protected by the Federal Confidentiality of Alcohol and Drug Abuse Patient Records regulations: The Federal rules restrict any use of the information to criminally investigate or prosecute any alcohol or drug abuse patient.[facility] CenterIn the event this information is protected by the Federal Confidentiality of Alcohol and Drug Abuse Patient Records regulations: The Federal rules restrict any use of the information to criminally investigate or prosecute any alcohol or drug abuse patient.[facility] CenterIn the event this information is protected by the Federal Confidentiality of Alcohol and Drug Abuse Patient Records regulations: The Federal rules restrict any use of the information to criminally investigate or prosecute any alcohol or drug abuse patient.[facility] CenterIn the event this information is protected by the Federal Confidentiality of Alcohol and Drug Abuse Patient Records regulations: The Federal rules restrict any use of the information to criminally investigate or prosecute any alcohol or drug abuse patient.[facility] CenterIn the event this information is protected by the Federal Confidentiality of Alcohol and Drug Abuse Patient Records regulations: The Federal rules restrict any use of the information to criminally investigate or prosecute any alcohol or drug abuse patient.[facility] CenterIn the event this information is protected by the Federal Confidentiality of Alcohol and Drug Abuse Patient Records regulations: The Federal rules restrict any use of the information to criminally investigate or prosecute any alcohol or drug abuse patient.[facility] CenterIn the event this information is protected by the Federal Confidentiality of Alcohol and Drug Abuse Patient Records regulations: The Federal rules restrict any use of the information to criminally investigate or prosecute any alcohol or drug abuse patient.[facility] CenterIn the event this information is protected by the Federal Confidentiality of Alcohol and Drug Abuse Patient Records regulations: The Federal rules restrict any use of the information to criminally investigate or prosecute any alcohol or drug abuse patient.[facility] CenterIn the event this information is protected by the Federal Confidentiality of Alcohol and Drug Abuse Patient Records regulations: The Federal rules restrict any use of the information to criminally investigate or prosecute any alcohol or drug abuse patient.[facility] CenterIn the event this information is protected by the Federal Confidentiality of Alcohol and Drug Abuse Patient Records regulations: The Federal rules restrict any use of the information to criminally investigate or prosecute any alcohol or drug abuse patient.[facility] CenterIn the event this information is protected by the Federal Confidentiality of Alcohol and Drug Abuse Patient Records regulations: The Federal rules restrict any use of the information to criminally investigate or prosecute any alcohol or drug abuse patient.[facility] CenterIn the event this information is protected by the Federal Confidentiality of Alcohol and Drug Abuse Patient Records regulations: The Federal rules restrict any use of the information to criminally investigate or prosecute any alcohol or drug abuse patient.[facility] CenterIn the event this information is protected by the Federal Confidentiality of Alcohol and Drug Abuse Patient Records regulations: The Federal rules restrict any use of the information to criminally investigate or prosecute any alcohol or drug abuse patient.[facility] Reason for Visit (unrecogniz ed section and content) Reason Comments Recheck Reason Comments pre op bronch Reason Comments New Patient Sore throat for 1 mo nth Reason Comments Appointment PreOp Bronch Reason Comments Dysphagia Specialty Diagnoses / Procedures Referred By Brookeac t Referred To Contact XR IMAGING Diagnoses Odynophagia Procedures XR MODIFIED BARIUM SWALLOW W SPEECH THERAPY RADIOLOGIC EXAM SWALLOW FUNCTION CONTRAST STUDY [address] [place] [address] Xr Imaging Referral ID Status Reason Start Date Expiration Date V isits Requested Visits Authorized [id number] Closed Auto-Generate d Referral 07/27/2022 08/26/2023 1 1 Reason Comments Spirometry Specialty Diagnoses / Procedures Referred By Contac t Referred To Contact [facility] Diagnoses Tracheal stenosis Procedures SIX MINUTE WALK CARDIOPULMONARY EXERCISE STRESS Sonu Riojas MD [address] [place] [address] Respiratory [place] [address] [place] [address] Referral ID Status Reason Start Date Expiration Date V isits Requested Visits Authorized [id number] Closed Auto-Generate d Referral 08/16/2022 09/15/2023 1 1 Specialty Diagnoses / Procedures Referred By Contac t Referred To Contact [facility] Diagnoses Tracheal stenosis Procedures SPIROMETRY WITH DILATOR IF OBSTRUCTED BRNCDILAT RSPSE SPMTRY PRE&POST-BRNCDILAT ADMN Sonu Riojas MD [address] [place] [address] [address] Referral ID Status Reason Start Date Expiration Date V isits Requested Visits Authorized [id number] Closed Auto-Generate d Referral 08/16/2022 09/15/2023 1 1 Reason Comments Radio GI Main HB6 Specialty Diagnoses / Procedures Referred By Contac t Referred To Contact XR IMAGING Diagnoses Odynophagia Procedures XR MODIFIED BARIUM SWALLOW W SPEECH THERAPY RADIOLOGIC EXAM SWALLOW FUNCTION CONTRAST STUDY [address] [address] Xr Imaging Reason Comments Pulm Rehab Reason Comments Appointment Reason Comments Patient Question Patient called and wants to know, if device is MRI compatible. Please call her at [phone] Reason Comments Clinic Prep Reason Comments New Patient Syncope Specialty Diagnoses / Procedures Referred By Contac t Referred To Contact Neurology Diagnoses Syncope and collapse Cerebral infarction, unspecified (HCC) Orthostatic hypotension Procedures AL OFFICE/OUTPATIENT NEW MODERATE MDM 45-59 MINUTES Mark Johnson MD [address] [place] [address] [facility] [address] [place] [address] Referral ID Status Reason Start Date Expiration Date V isits Requested Visits Authorized [id number] Pending Review 03/24/2023 03/24/2024 1 1 Specialty Diagnoses / Procedures Referred By Contac t Referred To Contact Neurology Diagnoses Syncope and collapse Procedures EEG extended more than 1 hour Steff Muhammad MD [address] [place] [address] Referral ID Status Reason Start Date Expiration Date Visits Re quested Visits Authorized [id number] Closed 04/12/2023 10/09/2023 1 1 Reason Comments Consult Reason Comments Follow-up Loss of Consciousness Results Reason Comments Lab Orders Reason Comments Radiology CT Specialty Diagnoses / Procedures Referred By Contac t Referred To Contact CT IMAGING Diagnoses Primary neuroendocrine tumor of pancreas Procedures CT PANCREAS W IVCON CT ABDOMEN W/CONTRAST Amanda Adams MD [address] [place] [address] Ct Imaging [place] [address] Referral ID Status Reason Start Date Expiration Date V isits Requested Visits Authorized [id number] Closed Auto-Generate d Referral 04/21/2023 05/20/2024 1 1 Reason Comments Follow-up Loss of Consciousness Stroke Care Teams (unrecognized sec tion and content) Char Filter Tank Tender Relationship Specialty Start Date End Date Kaylin Hui [address] [facility] [place] [address] PCP - General Family Practice 04/13/21 Trey Richey [address] [place] [address] Cardiology 05/14/18 Amanda Clark V [address] [place] [address] Referring Internal Medicine 06/26/20 Char Filter Tank Tender Relationship Specialty Start Date End Date Kaylin Hui [address] [facility] [address] [place] [id number] PCP - General Family Practice 04/13/21 Trey Richey [address] [place] [address] Cardiology 05/14/18 Amanda Clark, Jian [address] [place] [address] Referring Internal Medicine 06/26/20 Char Filter Tank Tender Relationship Specialty Start Date End Date Kaylin Hui [address] [facility] [place] [address] PCP - General Family Practice 04/13/21 Trey Richey [address] [place] [address] Cardiology 05/14/18 Amanda Clark V [address] [place] [address] Referring Internal Medicine 06/26/20 Char Filter Tank Tender Relationship Specialty Start Date End Date Kaylin Hui [address] [facility] [place] [address] PCP - General Family Medicine 04/13/21 Trey Richey [address] [place] [address] Cardiology 05/14/18 Amanda Clark V [address] [place] [address] Referring Internal Medicine 06/26/20 Char Filter Tank Tender Relationship Specialty Start Date End Date Kaylin Hui [address] [facility] [place] [address] PCP - General Family Medicine 04/13/21 Trey Richey [address] [place] [address] Cardiology 05/14/18 Amanda Clark V [address] [place] [address] Referring Internal Medicine 06/26/20 Char Filter Tank Tender Relationship Specialty Start Date End Date Kaylin Hui [address] [facility] [place] [address] PCP - General Family Medicine 04/13/21 Trey Richey [address] [place] [address] Cardiology 05/14/18 Amanda Clark V [address] [place] [address] Referring Internal Medicine 06/26/20 Char Filter Tank Tender Relationship Specialty Start Date End Date Kaylin Hui [facility] [place] [address] PCP - General Family Medicine 04/13/21 Trey Richey [address] [place] [address] Cardiology 05/14/18 Amanda Clark V [address] [place] [address] Referring Internal Medicine 06/26/20 Char Filter Tank Tender Relationship Specialty Start Date End Date Kaylin Hui [address] [facility] [place] [address] PCP - General Family Medicine 04/13/21 Trey Richey [address] [place] [address] Cardiology 05/14/18 Amanda Clark V [address] [place] [address] Referring Internal Medicine 06/26/20 Char Filter Tank Tender Relationship Specialty Start Date End Date Kaylin Hui [address] [facility] [address] [place], [place] [id number] PCP - General Family Medicine 04/13/[address] [place] [address] Cardiology 05/14/18 Amanda Clark V [address] [place] [place] [address] Referring Internal Medicine 06/26/20 Char Filter Tank Tender Relationship Specialty Start Date End Date Kaylin Hui [address] [facility] [place] [address] PCP - General Family Medicine 04/13/21 Trey Richey [address] [place] [address] Cardiology 05/14/18 Amanda Clark V [address] [place] [address] Referring Internal Medicine 06/26/20 Char Filter Tank Tender Relationship Specialty Start Date End Date Kaylin Hui [address] [facility] [place] [address] PCP - General Family Medicine 04/13/21 Trey Richey [address] [place] [address] Cardiology 05/14/18 Amanda Clark V [address] [place] [address] Referring Internal Medicine 06/26/20 Char Filter Tank Tender Relationship Specialty Start Date End Date Kaylin Hui PA-C [address] [place] [id number] PCP - General Physician Host And Hostess 03/24/23 Char Filter Tank Tender Relationship Specialty Start Date End Date Kaylin Hui PA-C [address] [place] [id number] PCP - General Physician Host And Hostess 03/24/23 Char Filter Tank Tender Relationship Specialty Start Date End Date Kaylin Hui [address] [facility] [address] [place], [place] [id number] PCP - General Family Medicine 04/13/21 Trey Richey [address] [place] [address] Cardiology 05/14/18 Eduardo AmandaJian [address] [place] [address] Referring Internal Medicine 06/26/20 Char Filter Tank Tender Relationship Specialty Start Date End Date Kaylin Hui PA-C [address] [place] [id number] PCP - General Physician Host And Hostess 03/24/23 Char Filter Tank Tender Relationship Specialty Start Date End Date Kaylin Hui [address] [place] [id number] PCP - General Family Medicine 04/13/21 Trey Richey MD [address] [place], [place] [id number] Cardiology 05/14/18 Amanda Clark V [address] [place] [id number] Referring Internal Medicine 06/26/20 Char Filter Tank Tender Relationship Specialty Start Date End Date Kaylin Hui [address] [place], [place] [id number] PCP - General Family Medicine 04/13/21 Trey Richey MD [address] [place], [place] [id number] Cardiology 05/14/18 Amanda Clark V [address] [place] [address] Referring Internal Medicine 06/26/20 Char Filter Tank Tender Relationship Specialty Start Date End Date Kaylin Hui PA-C [address] [place] [address] PCP - General Physician Host And Hostess 03/24/23 <item> Privacy Markings (unrecogniz ed section [...] BE BASED ON THE PRIMARY CLINICAL RECORDS. [employer] [facility]. provides no warranty or guarantee of the accuracy or completeness of information in this document.
--- NOTE | 2023-11-24 01:07 | PCM.HP.STD ---
[facility] - General General Date of Admission: 11/24/23 Date of Service: 11/24/23 Chief Complaint: Left hip fracture after fall HPI Narrative AMANDA HERNANDEZ, is a 73 M with a past medical history of essential hypertension, hyperlipidemia, hypothyroidism, obesity; with BMI of 30.3 this admission, BETTY; on CPAP, CAD; status post FL and CABG x 5 (2018), history of ischemic cardiomyopathy; with LVEF ~40%, history of nonrheumatic mitral regurgitation, history of CVA; with residual Right hemiparesis, history of primary pancreatic neuroendocrine tumor, history of colonic diverticulosis, 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 The staff at the other hospital reportedly spoke directly with the Dr. Dorman of orthopedic surgery who recommended patient be admitted here to the hospitalist service so that he could consult in the a.m. ORIF which was done. According to the records he was working on his car in his driveway when he suddenly stumbled and fell onto his Left hip with subsequent severe pain and inability to ambulate. He denies LOC or significant head trauma with his fall. He also denies associated fever, chills, nausea, vomiting or other recent illness. He was then admitted to the general medical floor for ongoing care for a stay that is expected to be greater than 48 hours. [facility] Medical History Adult failure to thrive Alcoholism Anxiety and depression Aphonia Atherosclerotic heart disease of [place] coronary artery without angina pectoris Bifascicular block BPH (benign prostatic hyperplasia) Bradycardia Cardiac arrest with ventricular fibrillation Congestive heart failure (CHF) CVA (cerebral vascular accident) Diverticulosis Dysphagia Dyspnea on exertion Essential hypertension Fatigue Former smoker GERD (gastroesophageal reflux disease) History of CVA (cerebrovascular accident) History of tracheal stenosis Hyperlipidemia Hypertension Hypothyroidism ICD (implantable cardioverter-defibrillator) in place Ischemic cardiomyopathy Low back pain Myocardial infarct Non-rheumatic mitral regurgitation BETTY on CPAP Osteoporosis Pancreatic mass 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 Right bundle branch block SBO (small bowel obstruction) Syncope Trigeminal neuralgia Weakness Home Medications omeprazole 20 mg tablet,delayed release 20 mg PO DAILY reflux 09/26/18 [History Last Taken 06/22/23] potassium chloride 10 mEq tablet,extended release 20 meq PO BID supplement 11/18/19 [History Last Taken 06/22/23] aspirin 81 mg tablet,delayed release 81 mg PO QDAY heart health 02/01/22 [History Last Taken 06/22/23] duloxetine 60 mg capsule,delayed release 60 mg PO DAILY mental health 03/21/23 [History Last Taken 06/22/23] furosemide 40 mg tablet 20 mg PO .COMPLEX diuretic 03/21/23 [History Last Taken 06/22/23] mirabegron 50 mg tablet,extended release 24 hr (Myrbetriq) 50 mg PO DAILY BLADDER 05/19/23 [History Last Taken 06/22/23] atorvastatin 40 mg tablet 40 mg PO QHS cholesterol #0 tabs 07/06/23 [Rx Last Taken Unknown] levothyroxine 50 mcg tablet 50 mcg PO SuSa@0600 thyroid #0 tabs 07/06/23 [Rx Last Taken Unknown] metolazone 2.5 mg tablet 2.5 mg PO DAILY PRN FLUID RETENTION #0 tabs 07/06/23 [Rx Last Taken Unknown] mirtazapine 30 mg tablet 30 mg PO QHS sleep #0 tabs 07/06/23 [Rx Last Taken Unknown] nitroglycerin 0.4 mg sublingual tablet 0.4 mg sublingual Q5M PRN Cardiac/Chest Pain #0 tabs 07/06/23 [Rx Last Taken Unknown] finasteride 5 mg tablet 5 mg PO DAILY 30 days #30 tabs 07/28/23 [Rx Last Taken Unknown] losartan 50 mg tablet 50 mg PO DAILY 30 days #30 tabs 07/28/23 [Rx Last Taken Unknown] carvedilol 3.125 mg tablet 3.125 mg PO BIDCM BP #180 tabs 08/07/23 [Rx Last Taken Unknown] ergocalciferol (vitamin D2) 1,250 mcg (50,000 unit) capsule 1,250 mcg PO QWEEK vits 09/26/23 [History Last Taken Unknown] acetaminophen 325 mg capsule (Tylenol) 650 mg PO Q6H 11/24/23 [History Last Taken Unknown] amiodarone 200 mg tablet 100 mg PO DAILY heart rate 11/24/23 [History Last Taken Unknown] levothyroxine 25 mcg tablet 25 mcg PO MOTUWETHFR thyroid 11/24/23 [History Last Taken Unknown] linaclotide 145 mcg capsule (Linzess) 145 mcg PO DAILY PRN bowel 11/24/23 [History Last Taken Unknown] oxybutynin chloride 10 mg tablet,extended release 24 hr 10 mg PO DAILY bladder 11/24/23 [History Last Taken Unknown] tamsulosin 0.4 mg capsule 0.4 mg PO QHS bph 11/24/23 [History Last Taken Unknown] tramadol 50 mg tablet 50 mg PO DAILY PRN PRN Pain Score 1-10 11/24/23 [History Last Taken Unknown] Allergy/AdvReac Type Severity Reaction Status Date / Time lisinopril AdvReac cough Verified 10/20/23 12:25 Family History Mother Heart disease Cancer breast CAD (coronary artery disease) Breast cancer Father Colon cancer Sister Breast cancer Rheumatoid arthritis Surgical History Aortocoronary bypass status (~09/28/17) History of cardiac radiofrequency ablation History of implantable cardioverter-defibrillator (ICD) placement (~11/10/17) History of kyphoplasty History of resection and anastomosis of trachea (~04/2021) S/P total right hip arthroplasty Social History household members: spouse number of children: 2 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 Admits to 8-9 beers a day at the present time. substance use type: does not use caffeine: No ROS ROS Narrative Review of systems: General: Patient denies fever or chills HENT: Denies headache, denies stuffy nose, denies sore throat EYES: Denies changes in vision or discharge from eyes Resp: Denies cough, denies shortness of breath Cardiac: Denies chest pain or palpitations GI: Denies abdominal pain, denies changes in bowel, denies nausea or vomiting : Denies changes in urination Extremity: Patient admits to severe pain in the left hip made worse with any attempted movement. Musculoskeletal: Patient admits to arthralgias and myalgias of the left lower extremity. Neuro: Denies any numbness/tingling Heme: Denies any bleeding or bruising Skin: Denies rashes Psychiatric: No complaints voiced related to uncontrolled depression or anxiety Endocrine: No polyuria, polydipsia or polyphagia. The rest of the 14 point ROS was negative except for positives in HPI. Physical Exam Const alert, oriented x3 and no apparent distress General Appearance: cooperative HEENT normocephalic, head/scalp atraumatic, hearing grossly normal bilaterally and moist oral mucous membranes Eyes PERRL and EOMs intact bilaterally Neck no lymphadenopathy and supple Resp normal respiratory effort, no retractions, no use of accessory muscles and clear to auscultation bilaterally Cardio regular rate and regular rhythm GI normal to inspection, nondistended, normoactive bowel sounds, soft to palpation, non-tender and non-distended Extremity Extremity Narrative: Left lower extremity shortening and external rotation. No signs of vascular compromise. Neuro oriented x3, CN's II-XII intact bilaterally, moves all extremities and no focal motor deficits Sensorium / Orientation: awake, alert, oriented to person, oriented to place and oriented to time Speech: speech normal Psych affect normal Results Medical Records Data Attestation: I reviewed the patient's medical records Lab / Micro Data Attestation: I reviewed the patient's lab results. 11/24/23 05:16 11/24/23 05:16 Assessment & Plan Assessment/Plan (1) Closed left hip fracture: QUALIFIERS: Encounter type: initial encounter Qualified Code(s): S72.002A - Fracture of unspecified part of neck of left femur, initial encounter for closed fracture (2) Fall at home: QUALIFIERS: Encounter type: initial encounter Qualified Code(s): W19.XXXA - Unspecified fall, initial encounter; Y92.009 - Unspecified place in unspecified non-institutional (private) residence as the place of occurrence of the external cause PLAN: Plan 1. Left hip fracture after mechanical fall at home in the setting of known osteoporosis and osteoarthritis; with chronic back pain - Admit to general medical floor. Place Brunner and follow strict I's and O's. Give Tylenol as needed for mild to moderate (level 1-5 out of 10 pain) or fever. Give IV morphine as needed for severe level 6-10 out of 10 pain. Finally, we will consult Dr. Dorman of the orthopedic service see this patient on rounds in the a.m. for further recommendations with help appreciated in advance. 2. History of alcoholism with adult [id number] complicating #1 - Check GHASSAN and check [facility] UDS to assess for possible intoxication that may be precipitating #1. 3. History of CVA; with residual Right hemiparesis compounding #1 & #2 - Noted. PT/OT and case management to consult and treat after ORIF with help appreciated in advance. 4. History of parkinsonism attributed to drugs exacerbating #1 - #3 - Continue supportive care. 5. Essential hypertension - Resume current management. 6. Hyperlipidemia - Continue statin. 7. Hypothyroidism - Resume Synthroid and check TSH. 8. Obesity; with BMI of 30.3 this admission plus BETTY; on CPAP - Weight loss will be recommended. Continue nocturnal CPAP as previous. 9. CAD; status post FL and CABG x 5 (2018) - Noted. 10. History of ischemic cardiomyopathy; with LVEF ~40% plus history of nonrheumatic mitral regurgitation - Resume home regimen. 11. History of primary pancreatic neuroendocrine tumor - Noted. 12. History of colonic diverticulosis - Noted. 13. History of tracheal stenosis - Noted. 14. History of syncope - Noted. 15. Trigeminal neuralgia - Stable. 16. IBS; of constipation type on Linzess - Continue Linzess as previous. 17. GERD - Resume PPI. 18. BPH with overactive bladder - Stable on current medical regimen. 19. Depression - Continue home medications. 20. DVT prophylaxis - We will avoid preoperative blood thinners in cases of traumatic fracture due to potential increased risk of bleeding complications. Orthopedic surgeon to decide upon postoperative DVT prophylaxis. Total time: Approximately 55 minutes. Charges/Coding Visit Charges Inpatient E&M: 80125 Init Hosp L2
[2023-11-24] MEDS: 0.9% Normal Saline (1000mL) 1,000 ML 70 ML IV ×3 (01:29→20:09)
[2023-11-24] MEDS: Morphine 2 MG/ML Syringe IV ×4 (01:35→14:44)
[2023-11-24] MEDS: Acetaminophen 325 MG Tablet 650 MG PO (02:31)
--- OUTSIDE RECORDS SUMMARY | 2023-11-24 02:51 | XMS RPT_ITS | CCD ---
Author Name Unknown Address [address] [place] [address] Organization [facility] Care Team Providers Care Frame Assembler Name Role Phone Unavailable Unavailable Unavailable Tavallaee, [...] Therapy Services Unavailable Center, [facility] Unavailable [facility] Unavailable Dr. Justen Meza MD Unavailable Urologist [...] Unavailable Andreea ROMERO, Dr. Daphnie Licea Unavailable [phone] [facility] Unavailable Raymundo REAL ESTATE EXECUTIVE ASSISTANT, Nikkie Unavailable Nestor PARRA, Breanna Jaime Unavailable Fransico BARRIOS, Ronald Loomis Unavailable Bienvenido REAL ESTATE EXECUTIVE ASSISTANT, Edna Fermin Unavailable Unavailable Gogoi (scribe), Hemanta Unavailable Unavaila ble Lg REAL ESTATE EXECUTIVE ASSISTANT, Diane Unavailable Unavailable Deejay BARRIOS, Amanda Tavera Unavailable Jarrell ZAMBRANO, Alexa Unavailable Unavailable Miranda REAL ESTATE EXECUTIVE ASSISTANT, Nida Unavailable Unavaila ble Fredrick REAL ESTATE EXECUTIVE ASSISTANT, Lucia Unavailable Unavailable Stew GODOY, Gaby Tavera Unavailable Unavaila ble Marthey REAL ESTATE EXECUTIVE ASSISTANT, Yolis Unavailable Unavailable Mutersbaugh REAL ESTATE EXECUTIVE ASSISTANT, Cindy K Unavailable Unavai zoltan Nayak (Scribe), Alo Unavailable Unavailab le Castillo REAL ESTATE EXECUTIVE ASSISTANT, Montserrat M Unavailable Unavailab le Amy REAL ESTATE EXECUTIVE ASSISTANT, Gris Gonzalez Unavailable Unavailab shimon Nielson MA, Lucia Unavailable Unavailable Vess REAL ESTATE EXECUTIVE ASSISTANT, Neilee L Unavailable Unavailable Wengerd REAL ESTATE EXECUTIVE ASSISTANT, Krissy Unavailable Unavailabl e Jaky REAL ESTATE EXECUTIVE ASSISTANT, Rox N Unavailable Unavaila ble Zaugg REAL ESTATE EXECUTIVE ASSISTANT, Judy Unavailable Unavailable Unavailable Unavailable AMANDA ADAMS Referring Unavailable HUI, KAYLIN J Primary Care Unavailable AMANDA ADAMS Attending Unavailable AMANDA ADAMS Referring Unavailable HUI, KAYLIN J Primary Care Unavailable AMANDA ADAMS Referring Unavailable HUI, KAYLIN J Primary Care Unavailable AMANDA ADAMS Attending Unavailable HUI, KAYLIN J Primary Care Unavailable STEFF MUHAMMAD Attending Unavailable HUI, KAYLIN Primary Care Unavailable STEFF MUHAMMAD Attending Unavailable ROMAN, MARK Referring Unavailable ATLANTA, KAYLIN Primary Care Unavailable STEFF MUHAMMAD Attending Unavailable STEFF MUHAMMAD Referring Unavailable ATLANTA, KAYLIN Primary Care Unavailable STEFF MUHAMMAD Attending Unavailable [facility] Primary Care Unavailable Allergies Allergy Classification Reported Allergen(s) Allergy Type Date of Onset Reaction(s) Facility (20 sources) Lisinopril; Translations: [lisinopril] Drug Allergy 1 Cough [facility] (6 sources) Lisinopril Allergy to substance 9 Cough, Unknown [facility] NEGATED: Highlighted row has been ruled out! (1 source) 2 [employer] NEGATED: Highlighted row has been ruled out! (1 source) [employer] NEGATED: Highlighted row has been ruled out! (1 source) 2 [employer] NEGATED: Highlighted row has been ruled out! (1 source) [employer] NEGATED: Highlighted row has been ruled out! (1 source) 2 [employer] NEGATED: Highlighted row has been ruled out! (1 source) [employer] NEGATED: Highlighted row has been ruled out! (1 source) 2 [employer] [facility] NEGATED: Highlighted row has been ruled out! (1 source) [employer] [facility] NEGATED: Highlighted row has been ruled out! (1 source) 2 [employer] NEGATED: Highlighted row has been ruled out! (1 source) [employer] [facility] NEGATED: Highlighted row has been ruled out! (1 source) 2 [employer] [facility] NEGATED: Highlighted row has been ruled out! (1 source) [employer] NEGATED: Highlighted row has been ruled out! (1 source) [employer] NEGATED: Highlighted row has been ruled out! (1 source) [employer] Medications Current Medications Medication Drug Class(es) Dates [...] 29.65 kg/m2 Steff Muhammad MD Work Phone: [employer] 09-28-2023 13:40-0500 Body weight 88.45 kg Steff Muhammad MD Work Phone: [employer] 09-28-2023 13:40-0500 Diastolic blood pressure 68 mm[Hg] Steff Muhammad MD Work Phone: [employer] 09-28-2023 13:40-0500 Heart rate 66 /min Steff Muhammad MD Work Phone: [employer] 09-28-2023 13:40-0500 Systolic blood pressure 112 mm[Hg] Steff Muhammad MD Work Phone: [employer] 09-12-2023 10:32-0500 Body height 177.8 cm Alexa Vieyra MA [email or web address] 09-12-2023 10:32-0500 Body mass index (BMI) [Ratio] 27.9 kg/m2 Alexa Vieyra MA [employer] 09-12-2023 10:32-0500 Body surface area Derived from formula 2.06 m2 Alexa Vieyra MA [employer] 09-12-2023 10:32-0500 Body weight 88.2 kg Alexa Vieyra MA [employer] 09-12-2023 10:32-0500 Diastolic blood pressure 84 mm[Hg] Alexa Vieyra MA [employer] 09-12-2023 10:32-0500 Heart rate 66 /min Alexa Vieyra MA [employer] 09-12-2023 10:32-0500 Inhaled oxygen concentration 20 % Alexa Vieyra MA [facility].; [facility]. 09-12-2023 10:32-0500 SaO2% (BldA) [Mass fraction] 92 % Alexa Vieyra MA [facility], [facility].; [facility] 09-12-2023 10:32-0500 Systolic blood pressure 172 mm[Hg] Alexa Vieyra MA [facility], [facility].; [facility]. 08-03-2023 13:51-0500 Body height 177.8 cm [facility].; [facility], [facility]. 08-03-2023 13:51-0500 Body mass index (BMI) [Ratio] 28.44 kg/m2 [facility].; [facility], [facility]. 08-03-2023 13:51-0500 Body surface area Derived from formula 2.08 m2 [facility].; [facility], [facility]. 08-03-2023 13:51-0500 Body weight 89.9 kg [facility].; [facility], [facility]. 08-03-2023 13:51-0500 Diastolic blood pressure 75 mm[Hg] [facility].; [facility], [facility]. 08-03-2023 13:51-0500 Heart rate 53 /min [facility].; [facility], [facility]. 08-03-2023 13:51-0500 Inhaled oxygen concentration 20 % [facility].; [facility], [facility]. 08-03-2023 13:51-0500 SaO2% (BldA) [Mass fraction] 95 % [facility], [facility].; [facility], [facility]. 08-03-2023 13:51-0500 Systolic blood pressure 120 mm[Hg] [facility], [facility].; [facility], [facility]. 04-21-2023 08:36-0400 Body height 172.7 cm Amanda Adams MD Work Phone: [facility] 04-21-2023 08:36-0400 Body temperature 97.9 [degF] Amanda Adams MD Work Phone: [facility] 04-21-2023 08:36-0400 Body weight 95.25 kg Amanda Adams MD Work Phone: [facility] 04-21-2023 08:36-0400 Diastolic blood pressure 76 mm[Hg] Amanda Adams MD Work Phone: [facility] 04-21-2023 08:36-0400 Heart rate 8 /min Amanda Adams MD Work Phone: [facility] 04-21-2023 08:36-0400 Systolic blood pressure 157 mm[Hg] Amanda Adams MD Work Phone: [facility] 04-12-2023 12:52-0400 Body height 172.7 cm Steff Muhammad MD Work Phone: [facility] 04-12-2023 12:52-0400 Body mass index (BMI) [Ratio] 31.32 kg/m2 Steff Muhammad MD Work Phone: [facility] 04-12-2023 12:52-0400 Body weight 93.44 kg Steff Muhammad MD Work Phone: [facility] 04-12-2023 12:52-0400 Diastolic blood pressure 80 mm[Hg] Steff Muhammad MD Work Phone: [facility] 04-12-2023 12:52-0400 Heart rate 70 /min Steff Muhammad MD Work Phone: [facility] 04-12-2023 12:52-0400 Systolic blood pressure 141 mm[Hg] Steff Muhammad MD Work Phone: [facility] 03-03-2023 10:16-0400 Body height 177.8 cm Montserrat Chong LPN [facility], [facility].; [facility], [facility]. 03-03-2023 10:16-0400 Body mass index (BMI) [Ratio] 30.28 kg/m2 Montserrat Chatmanlabach REAL ESTATE EXECUTIVE ASSISTANT [facility].; [facility]. 03-03-2023 10:16-0400 Body surface area Derived from formula 2.14 m2 Montserrat Chatmanlabach [facility].; [facility]. 03-03-2023 10:160400 Body weight 95.71 kg Montserrat Licea Castillo [facility].; [facility]. 03-03-2023 10:160400 Diastolic blood pressure 72 mm[Hg] [facility]errat [facility].; [facility]. 03-03-2023 10:160400 Heart rate 69 /min Montserrat Licea Castillo [facility].; [facility]. 03-03-2023 10:16-0400 Systolic blood pressure 139 mm[Hg] Montserrat Starkach [facility].; [employer] [facility]. 01-05-2023 13:24-0400 Body height 177.8 cm Kaylin Yeni Hui PA-C Work Phone: [employer] [facility].; [employer] [facility]. 01-05-2023 13:24-0400 Body mass index (BMI) [Ratio] 30.42 kg/m2 Kaylin Jaime Hui PA-C Work Phone: [employer] [facility].; [employer] [facility]. 01-05-2023 13:24-0400 Body surface area Derived from formula 2.14 m2 Kaylin Yeni Hui PA-C Work Phone: [employer] [facility].; [employer] [facility]. 01-05-2023 13:24-0400 Body weight 96.16 kg Kaylin Yeni Hui PA-C Work Phone: [employer] [facility].; [employer] [facility]. 01-05-2023 13:24-0400 Diastolic blood pressure 74 mm[Hg] Kaylin Yeni Hui PA-C Work Phone: [facility].; [facility] 01-05-2023 13:24-0400 Heart rate 73 /min Kaylin Hui PA-C Work Phone: [facility].; [facility] 01-05-2023 13:24-0400 Systolic blood pressure 136 mm[Hg] Kaylin Hui PA-C Work Phone: [facility].; [facility] 11-27-2022 02:03-0500 Diastolic blood pressure 70 mm[Hg] Pcp Unknown [facility] 11-27-2022 02:03-0500 Heart rate 71 /min Pcp Unknown [facility] 11-27-2022 02:03-0500 Respiratory rate 16 /min Pcp Unknown [facility] 11-27-2022 02:03-0500 SaO2% (BldA) [Mass fraction] 95 % Pcp Unknown [facility] 11-27-2022 02:03-0500 Systolic blood pressure 138 mm[Hg] Pcp Unknown [facility] 09-27-2022 13:53-0500 Body height 175.3 cm Sonu Riojas MD Work Phone: [facility] 09-27-2022 13:53-0500 Body temperature 97.7 [degF] Sonu Riojas MD Work Phone: [facility] 09-27-2022 13:53-0500 Body weight 98.1 kg Pulm 11 Other Phone: [facility] 09-27-2022 13:53-0500 Diastolic blood pressure 67 mm[Hg] Sonu Riojas MD Work Phone: [facility] 09-27-2022 13:53-0500 Heart rate 65 /min Sonu Riojas MD Work Phone: [facility] 09-27-2022 13:53-0500 Respiratory rate 18 /min Sonu Riojas MD Work Phone: [facility] 09-27-2022 13:53-0500 SaO2% (BldA) [Mass fraction] 94 % Sonu Riojas MD Work Phone: [facility] 09-27-2022 13:53-0500 Systolic blood pressure 141 mm[Hg] Sonu Riojas MD Work Phone: [facility] 09-27-2022 11:00-0500 Body height 173 cm Pulm 11 Other Phone: [facility] 07-18-2022 14:04-0400 Body height 177.8 cm Kaylin Jaime Hui PA-C Work Phone: [facility]; [facility] 07-18-2022 14:04-0400 Body mass index (BMI) [Ratio] 30.56 kg/m2 Kaylin J Hui PA-C Work Phone: [facility]; [facility] 07-18-2022 14:04-0400 Body surface area Derived from formula 2.14 m2 Kaylin J Hui PA-C Work Phone: [facility]; [facility] 07-18-2022 14:04-0400 Body temperature 99 [degF] Kaylin Yeni Hui PA-C Work Phone: [facility]; [email or web address] 07-18-2022 14:04-0400 Body weight 96.62 kg Kaylin Yeni Hui PA-C Work Phone: [facility]; [email or web address] 07-18-2022 14:04-0400 Diastolic blood pressure 86 mm[Hg] Kaylin J Hui PA-C Work Phone: [facility]; [email or web address] 07-18-2022 14:04-0400 Heart rate 61 /min Kaylin J Uhi PA-C Work Phone: [facility]; [facility] 07-18-2022 14:04-0400 Systolic blood pressure 147 mm[Hg] Kaylin PEGUERO-C Work Phone: [facility], [facility].; [facility], [facility]. 07-07-2022 09:38-0400 Body height 177.8 cm Yolis Mora LPN [facility], [facility].; [facility] 07-07-2022 09:38-0400 Body mass index (BMI) [Ratio] 30.85 kg/m2 [facility], [facility].; [facility] 07-07-2022 09:38-0400 Body surface area Derived from formula 2.15 m2 Yolis Russostephanie [facility], [facility].; [facility], [facility]. 07-07-2022 09:38-0400 Body temperature 97.7 [degF] [facility]abiola [facility], [facility].; [facility], [facility]. 07-07-2022 09:38-0400 Body weight 97.52 kg Yolis [facility], [facility].; [facility], [facility]. 07-07-2022 09:38-0400 Diastolic blood pressure 86 mm[Hg] Yolisfabiola Russostephanie [facility], [facility].; [facility] 07-07-2022 09:38-0400 Heart rate 61 /min Yolisfabiola Russostephanie X[employer] [facility], [facility].; [facility], [facility]. 07-07-2022 09:38-0400 Systolic blood pressure 156 mm[Hg] Yolis Mora LPN [facility], [facility].; [facility] 06-30-2022 13:13-0400 Body height 177.8 cm Kaylin PEGUERO-C Work Phone: [facility], [facility].; [facility] 06-30-2022 13:13-0400 Body mass index (BMI) [Ratio] 30.42 kg/m2 Kaylin Hui PA-C Work Phone: [facility], [facility].; [facility] [employer] 06-30-2022 13:13-0400 Body surface area Derived from formula 2.14 m2 Kaylin Arellanoer PA-C Work Phone: [employer]; [employer] [facility] 06-30-2022 13:13-0400 Body weight 96.16 kg Kaylin Arellanoer PA-C Work Phone: [employer] [facility] 06-30-2022 13:13-0400 Diastolic blood pressure 73 mm[Hg] Kaylin Arellanoer PA-C Work Phone: [employer] [facility] 06-30-2022 13:13-0400 Heart rate 64 /min Kaylin Arellanoer PA-C Work Phone: [employer] [facility] 06-30-2022 13:13-0400 Systolic blood pressure 131 mm[Hg] Kaylin Arellanoer PA-C Work Phone: [employer] 03-15-2022 12:52-0400 Body temperature 97.81 [degF] Sonu Riojas MD Work Phone: [facility] 03-15-2022 12:52-0400 Diastolic blood pressure 69 mm[Hg] Sonu Riojas MD Work Phone: [facility] 03-15-2022 12:52-0400 Heart rate 60 /min Sonu Riojas MD Work Phone: [facility] 03-15-2022 12:52-0400 SaO2% (BldA) [Mass fraction] 93 % Sonu Riojas MD Work Phone: [facility] 03-15-2022 12:52-0400 Systolic blood pressure 135 mm[Hg] Sonu Riojas MD Work Phone: [facility] 12-27-2021 13:12-0400 Body height 177.8 cm Kaylin Arellanoer PA-C Work Phone: [employer] 12-27-2021 13:12-0400 Body mass index (BMI) [Ratio] 30.28 kg/m2 Kalyin Jaime Hui PA-C Work Phone: [employer] 12-27-2021 13:12-0400 Body surface area Derived from formula 2.14 m2 Kaylin Yeni Hui PA-C Work Phone: [employer] 12-27-2021 13:12-0400 Body weight 95.71 kg Kaylin Jaime Hui PA-C Work Phone: [employer] 12-27-2021 13:12-0400 Diastolic blood pressure 74 mm[Hg] Kaylin Yeni Hui PA-C Work Phone: [employer] 12-27-2021 13:12-0400 Heart rate 61 /min Kaylin Jaime Hui PA-C Work Phone: [employer] 12-27-2021 13:12-0400 Systolic blood pressure 131 mm[Hg] Kaylin Yeni Hui PA-C Work Phone: [employer] 11-17-2021 08:56-0500 Body height 177.8 cm Kaylin Yeni Hui PA-C Work Phone: [employer] 11-17-2021 08:56-0500 Body mass index (BMI) [Ratio] 30.28 kg/m2 Kaylin Yeni Hui PA-C Work Phone: [employer] 11-17-2021 08:56-0500 Body surface area Derived from formula 2.14 m2 Kaylin Yeni Hui PA-C Work Phone: [employer] [facility]. 11-17-2021 08:56-0500 Body weight 95.71 kg Kaylin Arellanoer PA-C Work Phone: [employer] 11-17-2021 08:56-0500 Diastolic blood pressure 64 mm[Hg] Kaylin Yeni Hui PA-C Work Phone: [employer] 11-17-2021 08:56-0500 Heart rate 57 /min Kaylin Jaime Hui PA-C Work Phone: [employer] 11-17-2021 08:56-0500 Systolic blood pressure 124 mm[Hg] Kaylin Yeni Hui PA-C Work Phone: [employer].; [employer] [facility]. 10-22-2021 13:13-0500 Body height 177.8 cm Kaylin Jaime Hui PA-C Work Phone: [employer] 10-22-2021 13:13-0500 Body mass index (BMI) [Ratio] 30.99 kg/m2 Kaylin Jaime Hui PA-C Work Phone: [employer].; [employer] 10-22-2021 13:13-0500 Body surface area Derived from formula 2.16 m2 Kaylin Yeni Hui PA-C Work Phone: [employer] 10-22-2021 13:13-0500 Body weight 97.98 kg Kaylin Yeni Hui PA-C Work Phone: [employer] 10-22-2021 13:13-0500 Diastolic blood pressure 78 mm[Hg] Kaylin Yeni Hui PA-C Work Phone: [employer] 10-22-2021 13:13-0500 Heart rate 70 /min Kaylin Yeni Hui PA-C Work Phone: [facility], [facility].; [employer], [facility]. 10-22-2021 13:13-0500 Systolic blood pressure 134 mm[Hg] Kaylin Yeni Hui PA-C Work Phone: [facility], [facility].; [employer] [facility] 08-03-2021 14:39-0500 Body height 177.8 cm Lucia Alcala LPN [facility], [facility].; [employer] 08-03-2021 14:39-0500 Body mass index (BMI) [Ratio] 30.71 kg/m2 Lucia Alcala LPN [employer] [facility] [employer] 08-03-2021 14:39-0500 Body surface area Derived from formula 2.15 m2 Lucia Alcala REAL ESTATE EXECUTIVE ASSISTANT [employer] [facility] [employer] 08-03-2021 14:39-0500 Body weight 97.07 kg Lucia Alcala REAL ESTATE EXECUTIVE ASSISTANT [employer] [facility], [facility].; [employer] 08-03-2021 14:39-0500 Diastolic blood pressure 77 mm[Hg] Lucia Alcala LPN [employer] [facility] [employer] 08-03-2021 14:39-0500 Heart rate 59 /min Lucia Alcala REAL ESTATE EXECUTIVE ASSISTANT [employer] [facility], [facility].; [employer], [facility]. 08-03-2021 14:39-0500 Systolic blood pressure 139 mm[Hg] Lucia Alcala LPN [employer] [facility], [facility].; [employer] 06-10-2021 13:16-0400 Body height 177.8 cm Montserrat Chong REAL ESTATE EXECUTIVE ASSISTANT [employer] [facility] [employer] 06-10-2021 13:16-0400 Body mass index (BMI) [Ratio] 29.84 kg/m2 Montserrat Chong LPN [employer] [facility] [employer] 06-10-2021 13:16-0400 Body surface area Derived from formula 2.12 m2 Montserrat Licea Castillo [employer] [facility].; [facility] 06-10-2021 13:16-0400 Body weight 94.35 kg Montserrat Licea Castillo REAL ESTATE EXECUTIVE ASSISTANT [facility].; [facility]. 06-10-2021 13:16-0400 Diastolic blood pressure 74 mm[Hg] Montserrat Licea Castillo [facility].; [employer] [facility]. 06-10-2021 13:16-0400 Heart rate 51 /min Montserrat Licea Castillo [employer] [facility].; [employer] [facility]. 06-10-2021 13:16-0400 Systolic blood pressure 134 mm[Hg] Montserrat Licea Castillo [facility].; [employer] [facility]. 05-18-2021 16:34-0400 Body height 177.8 cm Breanna Yeni Baez PA-C Work Phone: [facility].; [employer] [facility]. 05-18-2021 16:34-0400 Body mass index (BMI) [Ratio] 29.7 kg/m2 Breanna J Baez PA-C Work Phone: [facility].; [employer] [facility]. 05-18-2021 16:34-0400 Body surface area Derived from formula 2.12 m2 Breanna J Baez PA-C Work Phone: [employer] [facility].; [employer] [facility]. 05-18-2021 16:34-0400 Body temperature 97.7 [degF] Breanna J Baez PA-C Work Phone: [employer] [facility]. 05-18-2021 16:34-0400 Body weight 93.9 kg Breanna J Baez PA-C Work Phone: [employer] 05-18-2021 16:34-0400 Diastolic blood pressure 82 mm[Hg] Breanna J Baez PA-C Work Phone: [facility].; [employer] [facility]. 05-18-2021 16:34-0400 Heart rate 57 /min Breanna Yeni Baez PA-C Work Phone: [facility].; [employer] 05-18-2021 16:34-0400 Systolic blood pressure 144 mm[Hg] Breanna J Nestor PA-C Work Phone: [facility].; [employer] [facility]. 02-04-2021 11:20-0400 Body height 177.8 cm Lucia Alcala LPN [facility], [facility].; [employer] [facility]. 02-04-2021 11:20-0400 Body mass index (BMI) [Ratio] 29.99 kg/m2 Lucia Alcala LPN [facility], [facility].; [employer] [facility]. 02-04-2021 11:20-0400 Body surface area Derived from formula 2.13 m2 Lucia Alcala LPN [facility].; [employer] [facility]. 02-04-2021 11:20-0400 Body weight 94.8 kg Lucia Alcala LPN [facility], [facility].; [employer] [facility], [facility]. 02-04-2021 11:20-0400 Diastolic blood pressure 67 mm[Hg] Lucia Alcala LPN [facility], [facility].; [employer] [facility]. 02-04-2021 11:20-0400 Heart rate 60 /min Lucia [facility]cal[facility]PN [facility] [facility].; Clay INAPPIN [facility]. 02-04-2021 11:20-0400 Systolic blood pressure 122 mm[Hg] Lucia Alcala LPN [facility], [facility].; [facility] [employer] [facility]. 12-07-2020 11:25-0400 Body height 177.8 cm Gaby Mathias RN George [employer] [facility], [facility].; George INAPP[employer] [facility]. 12-07-2020 11:25-0400 Body mass index (BMI) [Ratio] 30.71 kg/m2 Gaby Mathias RN [facility].; [facility]. 12-07-2020 11:25-0400 Body surface area Derived from formula 2.15 m2 Gaby [facility] RN [facility].; Clay [facility]. 12-07-2020 11:25-0400 Body temperature 99.1 [degF] Gaby Math[facility] RN [facility].; [place] [facility]. 12-07-2020 11:25-040 Body weight 97.07 kg Gaby Mathias RN [facility].; [place] [facility]. 12-07-2020 11:25-0400 Diastolic blood pressure 72 mm[Hg] Gaby Mathias RN [facility].; George [employer] [facility], [facility]. 12-07-2020 11:25-0400 Systolic blood pressure 132 mm[Hg] Gaby Mathias RN [facility].; Clay [employer] [facility], [facility]. 11-26-2020 11:32-0500 Body height 177.8 cm Lucia [facility]cala LPN [facility].; [place] [facility]. 11-26-2020 11:32-0500 Body mass index (BMI) [Ratio] 30.28 kg/m2 Lucia Alcala LPN [facility] [employer] [facility], [facility].; Clay [employer], [facility]. 11-26-2020 11:32-0500 Body surface area Derived from formula 2.14 m2 Lucia Alcala LPN [facility], [facility].; [facility] I[employer]PP[employer] [facility]. 11-26-2020 11:32-0500 Body weight 95.71 kg Lucia Alcala LPN [facility].; ClayJoome [facility]. 11-26-2020 11:32-0500 Diastolic blood pressure 80 mm[Hg] Lucia Alcala LPN [facility] [employer] [facility], [facility].; Clay INAPP[employer] [facility]. 11-26-2020 11:32-0500 Heart rate 56 /min Lucia Alcala LPN [facility] [employer] [facility], [facility].; ClayJoome [facility]. 11-26-2020 11:32-0500 Systolic blood pressure 130 mm[Hg] Lucia Alcala LPN [facility], [facility].; [facility], [facility]. 08-04-2020 13:32-0500 Body height 177.8 cm Lucia Alcala LPN [facility], [facility].; [facility], [facility]. 08-04-2020 13:32-0500 Body mass index (BMI) [Ratio] 29.13 kg/m2 Lucia Alcala LPN [facility], [facility].; [facility], [facility]. 08-04-2020 13:32-0500 Body surface area Derived from formula 2.1 m2 Lucia Alcala LPN [facility], [facility].; [facility], [facility]. 08-04-2020 13:32-0500 Body temperature 98.9 [degF] Lucia Alcala LPN [facility], [facility].; [facility], [facility]. 08-04-2020 13:32-0500 Body weight 92.08 kg Lucia Alcala REAL ESTATE EXECUTIVE ASSISTANT [facility], [facility].; [facility], [facility]. 08-04-2020 13:32-0500 Diastolic blood pressure 63 mm[Hg] Lucia Alcala LPN [facility], [facility].; [facility], [facility]. 08-04-2020 13:32-0500 Heart rate 61 /min Lucia Alcala REAL ESTATE EXECUTIVE ASSISTANT [facility], [facility].; [facility], [facility]. 08-04-2020 13:32-0500 Inhaled oxygen concentration 20 % Lucia Alcala REAL ESTATE EXECUTIVE ASSISTANT [facility], [facility].; [facility] [employer] [facility], [facility]. 08-04-2020 13:32-0500 SaO2% (BldA) [Mass fraction] 94 % Lucia Alcala LPN [facility], [facility].; [facility] [employer] [facility], [facility]. 08-04-2020 13:32-0500 Systolic blood pressure 124 mm[Hg] Lucia Alcala REAL ESTATE EXECUTIVE ASSISTANT [facility], [facility].; [facility] [employer] [facility], [facility]. 05-13-2020 10:09-0400 Body height 177.8 cm Gris Reyes REAL ESTATE EXECUTIVE ASSISTANT [facility], [facility].; George [employer], [employer]. 05-13-2020 10:09-0400 Body temperature 98.6 [degF] Gris Reyes [facility], [facility].; [employer]sh[employer]. 05-13-2020 10:09-0400 Diastolic blood pressure 74 mm[Hg] Debby [facility] [employer] [facility], [employer].; [employer]. 05-13-2020 10:09-0400 Heart rate 72 /min Debby [facility], [facility].; [employer]. 05-13-2020 10:09-0400 Inhaled oxygen concentration 20 % [facility] [employer] [facility], [facility].; [employer]Oshib[employer]. 05-13-2020 10:09-0400 SaO2% (BldA) [Mass fraction] 93 % [facility] Hospital[facility], [facility].; [employer]. 05-13-2020 10:09-0400 Systolic blood pressure 127 mm[Hg] Debby Stuckey [facility], [employer].; [employer]. 03-12-2020 14:42-0400 Body height 177.8 cm Gaby Mathias RN George [facility] ClinicAfrigator Internet.; [employer]. 03-12-2020 14:42-0400 Body mass index (BMI) [Ratio] 29.99 kg/m2 Gaby Mathias RN ClaySilent Communication [facility] ClinicAfr[facility] Internet.; [employer]. 03-12-2020 14:42-0400 Body surface area Derived from formula 2.13 m2 Gaby Mathias RN ClaySilent Communication [facility] ClinicAfr[facility].; [employer]. 03-12-2020 14:42-0400 Body weight 94.8 kg Gaby Mathias RN [employer].; [employer]. 03-12-2020 14:42-0400 Diastolic blood pressure 69 mm[Hg] Gaby Mathias RN [employer].; [employer]. 03-12-2020 14:42-0400 Heart rate 52 /min Gaby Mathias RN [employer].; [employer]. 03-12-2020 14:42-0400 Systolic blood pressure 123 mm[Hg] Gaby Mathias RN [employer]Osh[employer].; Power [employer] SwedenSynGen [facility]. 11-01-2019 13:01-0500 Body height 177.8 cm Montserrat Vinayak Castillo XIE [facility].; ClaySilent Communication [facility] ClinicAfr[facility] Internet. 11-01-2019 13:01-0500 Body mass index (BMI) [Ratio] 29.99 kg/m2 Montserrat Chong LPN [facility].; [facility] [facility]. 11-01-2019 13:01-0500 Body surface area Derived from formula 2.13 m2 Montserrat Chong LPN [facility] [employer] [facility].; ClaySil[employer] Communication [facility]Syn[facility]. 11-01-2019 13:01-0500 Body weight 94.8 kg Montserrat M Castillo XIE [facility] [facility].; [place] [employer] [facility]. 11-01-2019 13:01-0500 Diastolic blood pressure 81 mm[Hg] Montserrat Chong LPN [facility] [employer] [facility].; ClaySilent Communication [facility]Syn[facility]. 11-01-2019 13:01-0500 Heart rate 56 /min Montserrat Chong LPN [facility] [employer] [facility] Clinic[facility].; ClaySil[employer] Communication [facility]Syn[facility]. 11-01-2019 13:01-0500 Systolic blood pressure 131 mm[Hg] Montserrat Chong LPN [facility] [facility] Clinic[facility].; ClaySilent Communication [facility] ClinicSyn[facility]. 09-26-2019 11:30-0500 Body height 177.8 cm Gaby Mathias RN George [facility] [facility].; ClayJoome [facility]. 09-26-2019 11:30-0500 Body mass index (BMI) [Ratio] 30.42 kg/m2 Gaby Mathias RN [facility] [employer] [facility].; [employer]. 09-26-2019 11:30-0500 Body surface area Derived from formula 2.14 m2 Gaby Mathias RN ClaySilent Communication [facility] ClinicAfrigator Internet.; [employer]. 09-26-2019 11:30-0500 Body temperature 99.4 [degF] Gaby Mathias RN George [employer] [facility] ClinicA[facility].; [employer]. 09-26-2019 11:30-0500 Body weight 96.16 kg Gaby Mathias RN ClayIntech[employer], Inc.; [employer], [employer]. 09-26-2019 11:30-0500 Diastolic blood pressure 59 mm[Hg] Gaby Mathias RN Clay [employer], Inc.; [employer], [employer]. 09-26-2019 11:30-0500 Heart rate 62 /min Gaby Mathias RN ClaySilent Communication [facility], Inc.; [employer], [employer]. 09-26-2019 11:30-0500 Systolic blood pressure 98 mm[Hg] Gaby Mathias RN [employer], Inc.; [employer], [employer]. 08-02-2019 14:25-0500 Body height 177.8 cm Montserrat Chong REAL ESTATE EXECUTIVE ASSISTANT [employer], Inc.; [employer], [employer]. 08-02-2019 14:25-0500 Body mass index (BMI) [Ratio] 30.13 kg/m2 Montserrat Chong LPN [employer], [employer].; [employer], [employer]. 08-02-2019 14:25-0500 Body surface area Derived from formula 2.13 m2 Montserrat Chong LPN [employer], [employer].; [employer], [employer]. 08-02-2019 14:25-0500 Body weight 95.26 kg Montserrat Chong REAL ESTATE EXECUTIVE ASSISTANT [employer], [employer].; [employer], [employer]. 08-02-2019 14:25-0500 Diastolic blood pressure 77 mm[Hg] Montserrat Chong LPN [employer], [employer].; [employer], [employer]. 08-02-2019 14:25-0500 Heart rate 61 /min Montserrat Chong LPN [employer], [employer].; [employer], [employer]. 08-02-2019 14:25-0500 Systolic blood pressure 117 mm[Hg] Montserrat Chong LPN [employer], [employer].; [employer], [employer]. 07-31-2019 13:06-0500 Body height 177.8 cm Judy Kasper LPN [employer], [employer].; [employer], [employer]. 07-31-2019 13:06-0500 Body mass index (BMI) [Ratio] 30.13 kg/m2 Judychester Kasper ROJAS [employer], [employer].; [employer], [employer]. 07-31-2019 13:06-0500 Body surface area Derived from formula 2.13 m2 Judy Rivasmoiz REAL ESTATE EXECUTIVE ASSISTANT [employer], [employer].; [employer], [employer]. 07-31-2019 13:06-0500 Body weight 95.26 kg Judy Majo REAL ESTATE EXECUTIVE ASSISTANT [employer], [employer].; [employer], [employer]. 07-31-2019 13:06-0500 Diastolic blood pressure 80 mm[Hg] Judy Rivasmoiz REAL ESTATE EXECUTIVE ASSISTANT [employer], [employer].; [employer], [employer]. 07-31-2019 13:06-0500 Heart rate 63 /min Judy Majo REAL ESTATE EXECUTIVE ASSISTANT [employer], [employer].; [employer], [employer]. 07-31-2019 13:06-0500 Systolic blood pressure 137 mm[Hg] Judy Rivasmoiz [facility] Hospital[facility], Inc.; [employer], [employer]. 07-16-2019 16:08-0400 Body height 177.8 cm Lucia Alcala LPN [employer], [employer].; [employer]. 07-16-2019 16:08-0400 Body mass index (BMI) [Ratio] 31.42 kg/m2 Lucia Alcala LPN [employer], [employer].; [employer]. 07-16-2019 16:08-0400 Body surface area Derived from formula 2.17 m2 Lucia Alcala LPN [employer], [employer].; [employer], [employer]. 07-16-2019 16:08-0400 Body temperature 98 [degF] Lucia Alcala LPN [facility], Inc.; [employer], [employer]. 07-16-2019 16:08-0400 Body weight 99.34 kg Lucia Alcala LPN [employer], [employer].; [employer], [employer]. 07-16-2019 16:08-0400 Diastolic blood pressure 75 mm[Hg] Lucia Alcala LPN [employer], [employer].; [employer]. 07-16-2019 16:08-0400 Heart rate 48 /min Lucia Alcala LPN [employer], [employer].; [employer], [employer]. 07-16-2019 16:08-0400 Inhaled oxygen concentration 20 % Lucia Alcala REAL ESTATE EXECUTIVE ASSISTANT Clay [employer] [facility], Inc.; [employer], [employer]. 07-16-2019 16:08-0400 SaO2% (BldA) [Mass fraction] 96 % Lucia Alcala REAL ESTATE EXECUTIVE ASSISTANT Clay [employer] [facility], Inc.; [employer], [employer]. 07-16-2019 16:08-0400 Systolic blood pressure 128 mm[Hg] Lucia Alcala REAL ESTATE EXECUTIVE ASSISTANT George [employer] [facility], Inc.; [employer], [employer]. 06-26-2019 07:47-0400 Body height 177.8 cm Gris Avitiauckey REAL ESTATE EXECUTIVE ASSISTANT Clay [employer] [facility], Inc.; [employer], [employer]. 06-26-2019 07:47-0400 Body mass index (BMI) [Ratio] 29.56 kg/m2 Debby Awendaw REAL ESTATE EXECUTIVE ASSISTANT [facility] [employer] [facility], Inc.; [employer], [employer]. 06-26-2019 07:47-0400 Body surface area Derived from formula 2.11 m2 Debby Awendaw REAL ESTATE EXECUTIVE ASSISTANT Clay [employer] [facility], Inc.; [employer], [employer]. 06-26-2019 07:47-0400 Body temperature 97.6 [degF] DebbyLisa Goldsmithey REAL ESTATE EXECUTIVE ASSISTANT Clay [employer] [facility], Inc.; [employer], [employer]. 06-26-2019 07:47-0400 Body weight 93.44 kg Debby Awendaw ROJAS Clay [employer] [facility], Inc.; [employer], [employer]. 06-26-2019 07:47-0400 Diastolic blood pressure 67 mm[Hg] DebbyLisa Goldsmithey ROJAS Clay [employer] [facility], Inc.; [employer], [employer]. 06-26-2019 07:47-0400 Heart rate 52 /min Debby Amy REAL ESTATE EXECUTIVE ASSISTANT [facility] [employer] [facility], Inc.; [employer], [employer]. 06-26-2019 07:47-0400 Inhaled oxygen concentration 20 % Gris Reyes REAL ESTATE EXECUTIVE ASSISTANT Clay [employer] [facility], Inc.; [employer], [employer]. 06-26-2019 07:47-0400 SaO2% (BldA) [Mass fraction] 98 % Debby Amy REAL ESTATE EXECUTIVE ASSISTANT ClaySilent Communication [facility], Inc.; ClayJoome Inc. 06-26-2019 07:47-0400 Systolic blood pressure 106 mm[Hg] Gris Reyes REAL ESTATE EXECUTIVE ASSISTANT George [employer] [facility], Inc.; Clay [employer], Inc. 06-20-2019 12:53-0400 Body height 177.8 cm Krissy Bell LPJohn C. Stennis Memorial HospitalJetpac [facility], Inc.; Clay INAPPIN Inc. 06-20-2019 12:53-0400 Body mass index (BMI) [Ratio] 31.71 kg/m2 Krissy Bell [facility] [employer], Inc.; [employer]. 06-20-2019 12:53-0400 Body surface area Derived from formula 2.18 m2 Krissy Bell [facility] [employer], Inc.; [employer], [employer]. 06-20-2019 12:53-0400 Body temperature 98.2 [degF] Krissy Bell [facility] [employer], Inc.; Clay [employer], Inc. 06-20-2019 12:53-0400 Body weight 100.25 kg [facility]issy [facility] LPW[facility] [employer], Inc.; [employer]. 06-20-2019 12:53-0400 Diastolic blood pressure 91 mm[Hg] Krissy [facility] LPW[facility] Message[employer], Inc.; [employer], [employer]. 06-20-2019 12:53-0400 Heart rate 54 /min Krissy Bell [facility] [employer] [facility], Inc.; ClayIntech[employer], Inc. 06-20-2019 12:53-0400 Inhaled oxygen concentration 28 % Krissy Bell [facility] [employer], Inc.; [employer]. 06-20-2019 12:53-0400 SaO2% (BldA) [Mass fraction] 97 % Krissydania Bell [facility] [employer], Inc.; [employer]. 06-20-2019 12:53-0400 Systolic blood pressure 147 mm[Hg] Krissy Bell [facility] [employer], Inc.; [employer]. 06-20-2019 12:53-0400 2 L/min Krissy Ray [facility], [facility].; [facility], Inc. 04-05-2019 10:15-0400 Body height 177.8 cm Montserrat Chatmanlabach [facility], Inc.; Clay [employer], Inc. 04-05-2019 10:15-0400 Body mass index (BMI) [Ratio] 30.42 kg/m2 Montserrat Licea [facility]illoLos [facility], Inc.; Clay [employer], Inc. 04-05-2019 10:15-0400 Body surface area Derived from formula 2.14 m2 Montserrat [facility], Inc.; George I[employer]PPIN Inc. 04-05-2019 10:150400 Body weight 96.16 kg Montserrat [facility]more[facility]illoLos [facility], Inc.; Clay I[employer]PPIN Inc. 04-05-2019 10:15-0400 Diastolic blood pressure 68 mm[Hg] Montserrat [facility] ClaremoreCastillo [facility] HospitalSynGen Inc.; Clay INAPPIN Inc. 04-05-2019 10:15-0400 Heart rate 68 /min Montserrat M Castillo [facility], Inc.; Clay [employer], Inc. 04-05-2019 10:15-0400 Systolic blood pressure 112 mm[Hg] Montserrat Licea Castillo [facility], Inc.; ClayJoome Inc. 01-11-2019 10:210400 Body height 177.8 cm Amanda Guzman MD Work Phone: George [employer].; [employer]. 01-11-2019 10:21-0400 Body mass index (BMI) [Ratio] 28.7 kg/m2 Amanda Guzman MD Work Phone: George [employer].; ClayJoome [employer]. 01-11-2019 10:21-0400 Body surface area Derived from formula 2.09 m2 Amanda Guzman MD Work Phone: George [employer].; [employer]. 01-11-2019 10:21-0400 Body weight 90.72 kg Amanda Guzman MD Work Phone: [employer], [employer].; [employer] 01-11-2019 10:21-0400 Diastolic blood pressure 54 mm[Hg] Amanda Guzman MD Work Phone: [employer], [employer].; [employer]. 01-11-2019 10:21-0400 Heart rate 51 /min Amanda Guzman MD Work Phone: [employer], [employer].; [employer], [employer] 01-11-2019 10:21-0400 Systolic blood pressure 96 mm[Hg] Amanda Guzman MD Work Phone: [employer].; [employer], [employer] 12-10-2018 08:56-0400 Body height 177.8 cm Debby Stuckey REAL ESTATE EXECUTIVE ASSISTANT [employer], [employer].; [employer], [employer]. 12-10-2018 08:56-0400 Body mass index (BMI) [Ratio] 28.27 kg/m2 Debby Stuckey REAL ESTATE EXECUTIVE ASSISTANT [employer], [employer].; [employer]. 12-10-2018 08:56-0400 Body surface area Derived from formula 2.07 m2 Debby Stuckey REAL ESTATE EXECUTIVE ASSISTANT [employer], [employer].; [employer], [employer]. 12-10-2018 08:56-0400 Body temperature 98.9 [degF] DebbyLisa Reyes REAL ESTATE EXECUTIVE ASSISTANT [employer], [employer].; [employer], [employer]. 12-10-2018 08:56-0400 Body weight 89.36 kg DebbyLisa Reyes REAL ESTATE EXECUTIVE ASSISTANT [employer], [employer].; [employer], [employer]. 12-10-2018 08:56-0400 Diastolic blood pressure 65 mm[Hg] Gris Reyes REAL ESTATE EXECUTIVE ASSISTANT [employer], [employer].; [employer], [employer]. 12-10-2018 08:56-0400 Heart rate 56 /min DebbyLisa Reyes REAL ESTATE EXECUTIVE ASSISTANT [employer], [employer].; [employer], [employer]. 12-10-2018 08:56-0400 Systolic blood pressure 101 mm[Hg] Gris Reyes LPN [employer].; [employer]. 10-26-2018 11:26-0500 Body height 177.8 cm Gaby Mathias RN [employer].; [employer]. 10-26-2018 11:26-0500 Body mass index (BMI) [Ratio] 29.27 kg/m2 Gaby Mathias RN [employer].; [employer]. 10-26-2018 11:26-0500 Body surface area Derived from formula 2.11 m2 Gaby Mathias RN [employer].; [employer]. 10-26-2018 11:26-0500 Body temperature 98.8 [degF] Gaby Mathias RN [employer].; [employer]. 10-26-2018 11:26-0500 Body weight 92.53 kg Gaby Mathias RN [employer].; [employer]. 10-26-2018 11:26-0500 Diastolic blood pressure 83 mm[Hg] Gaby Mathias RN [employer].; [employer]. 10-26-2018 11:26-0500 Heart rate 56 /min Gaby Mathias RN [employer].; [employer]. 10-26-2018 11:26-0500 Inhaled oxygen concentration 20 % Gaby Mathias RN [employer].; [employer]. 10-26-2018 11:26-0500 SaO2% (BldA) [Mass fraction] 97 % Gaby Mathias RN [employer].; [employer]. 10-26-2018 11:26-0500 Systolic blood pressure 153 mm[Hg] Gaby Mathias RN [employer].; [employer]. 10-05-2018 08:58-0500 Body height 177.8 cm Amanda Guzman MD Work Phone: [employer].; [employer] 10-05-2018 08:58-0500 Body mass index (BMI) [Ratio] 28.55 kg/m2 Amanda Guzman MD Work Phone: [employer].; [employer]. 10-05-2018 08:58-0500 Body surface area Derived from formula 2.08 m2 Amanda Guzman MD Work Phone: [employer].; [employer]. 10-05-2018 08:58-0500 Body weight 90.27 kg Amanda Guzman MD Work Phone: [employer].; [employer]. 10-05-2018 08:58-0500 Diastolic blood pressure 74 mm[Hg] Amanda Guzman MD Work Phone: [employer].; [employer]. 10-05-2018 08:58-0500 Heart rate 78 /min Amanda Guzman MD Work Phone: [employer].; [employer]. 10-05-2018 08:58-0500 Inhaled oxygen concentration 20 % Amanda Guzman MD Work Phone: [employer].; [employer]. 10-05-2018 08:58-0500 SaO2% (BldA) [Mass fraction] 92 % Amanda Guzman MD Work Phone: [employer].; [employer]. 10-05-2018 08:58-0500 Systolic blood pressure 138 mm[Hg] Amanda Guzman MD Work Phone: [employer].; [employer]. 09-14-2018 13:12-0500 Body height 177.8 cm Train [employer] Child [employer] (scribe) [employer].; [employer]. 09-14-2018 13:12-0500 Body mass index (BMI) [Ratio] 26.11 kg/m2 [employer] (scribe) [employer].; [employer]. 09-14-2018 13:12-0500 Body surface area Derived from formula 2.01 m2 [employer] (scribe) Clay [employer] [facility], Inc.; [employer], [employer]. 09-14-2018 13:12-0500 Body weight 82.56 kg [employer] (scribe) Clay [employer] [facility], Inc.; [employer], Inc. 09-14-2018 13:12-0500 Diastolic blood pressure 52 mm[Hg] Hemanta [employer]og[employer] (scribe) Clay [employer] [facility], Inc.; [employer], Inc. 09-14-2018 13:12-0500 Heart rate 50 /min [employer] (scribe) Clay [employer] [facility], Inc.; [employer], [employer]. 09-14-2018 13:12-0500 Systolic blood pressure 90 mm[Hg] Hemanta [employer]og[employer] (scribe) George [employer] [facility], Inc.; [employer], Inc. 08-23-2018 15:55-0500 Body height 177.8 cm Hem[employer] (scribe) Clay [employer] [facility], Inc.; [employer], Inc. 08-23-2018 15:55-0500 Body mass index (BMI) [Ratio] 26.54 kg/m2 Hemanta [employer]og[employer] (scribe) ClaySilent [employer] [facility], Inc.; [employer], Inc. 08-23-2018 15:55-0500 Body surface area Derived from formula 2.02 m2 [employer] (scribe) Clay [employer], Inc.; [employer], [employer]. 08-23-2018 15:55-0500 Body temperature 98.1 [degF] Hemanta [employer] (scribe) [employer], [employer].; [employer], Inc. 08-23-2018 15:55-0500 Body weight 83.92 kg Hemanta [employer] (scribe) [employer], [employer].; [employer], Inc. 08-23-2018 15:55-0500 Diastolic blood pressure 72 mm[Hg] Hemanta [employer]og[employer] (scribe) [employer], [employer].; [employer], Inc. 08-23-2018 15:55-0500 Heart rate 52 /min Hemanta [employer]og[employer] (scribe) [employer], [employer].; [employer]. 08-23-2018 15:55-0500 Inhaled oxygen concentration 20 % Hemanta Gogoi (scribe) [employer] [facility].; [employer]. 08-23-2018 15:55-0500 SaO2% (BldA) [Mass fraction] 98 % Hem[facility]oi [facility] [employer] [facility] [employer].; [employer]. 08-23-2018 15:55-0500 Systolic blood pressure 130 mm[Hg] Hemanta Gogoi (scribe) [employer] [facility] [employer].; [employer]. 08-23-2018 14:31-0500 Body height 177.8 cm [facility] Go[facility] [employer] [facility].; [employer]. 08-23-2018 14:31-0500 Body mass index (BMI) [Ratio] 26.54 kg/m2 [facility] Goi [facility] [employer] [facility].; [employer]. 08-23-2018 14:31-0500 Body surface area Derived from formula 2.02 m2 [facility] [employer].; [employer]. 08-23-2018 14:31-0500 Body temperature 98.1 [degF] Hemanta Gogoi (scribe) [employer] [facility] [employer].; [employer]. 08-23-2018 14:31-0500 Body weight 83.92 kg Hemanta Gogoi ([facility] [employer] [facility].; [employer]. 08-23-2018 14:31-0500 Diastolic blood pressure 68 mm[Hg] Hemanta Gogoi (scribe) [employer].; [employer]. 08-23-2018 14:31-0500 Heart rate 52 /min Hemanta Gogoi (scribe) [employer].; [employer]. 08-23-2018 14:31-0500 Inhaled oxygen concentration 20 % Hemanta Gogoi (scribe) [employer].; [employer]. 08-23-2018 14:31-0500 SaO2% (BldA) [Mass fraction] 98 % Hemanta Gogoi (scribe) [employer] [facility].; [employer]. 08-23-2018 14:31-0500 Systolic blood pressure 128 mm[Hg] Hemanta Brettgoi (scribe) [employer].; [employer]. 07-30-2018 08:48-0500 Body height 177.8 cm Hemregina Enriquei ([facility] [employer].; [email or web address]. 07-30-2018 08:48-0500 Body mass index (BMI) [Ratio] 26.11 kg/m2 Hemanta Ivai ([facility]) [employer] [facility].; [employer]. 07-30-2018 08:48-0500 Body surface area Derived from formula 2.01 m2 [facility] [employer] [facility] Inc.; [employer]. 07-30-2018 08:48-0500 Body temperature 99 [degF] Hemregina Enriquei ([facility]) [employer].; [email or web address]. 07-30-2018 08:48-0500 Body weight 82.56 kg Hemregina Enriquei ([facility]) [employer].; [email or web address]. 07-30-2018 08:48-0500 Diastolic blood pressure 41 mm[Hg] Hemregina Westgoi ([facility]) [employer] [facility] Inc.; [employer]. 07-30-2018 08:48-0500 Heart rate 49 /min Hemanta Brettgoi ([employer]) [employer].; [email or web address]. 07-30-2018 08:48-0500 Inhaled oxygen concentration 20 % Hemanta Brettgoi ([employer]) [employer].; [employer]. 07-30-2018 08:48-0500 SaO2% (BldA) [Mass fraction] 92 % Hemanta Brettgoi (scribe) [employer].; [employer]. 07-30-2018 08:48-0500 Systolic blood pressure 91 mm[Hg] Aydin Vieira (scribe) [facility], Inc.; [employer] 07-18-2018 10:16-0400 Body height 177.8 cm [facility]errat [facility]a [facility] [employer], Inc.; [employer]. 07-18-2018 10:16-0400 Body mass index (BMI) [Ratio] 26.11 kg/m2 Montserrat Licea [facility] MontgomeryIntechra Holdings, Inc.; [employer]. 07-18-2018 10:16-0400 Body surface area Derived from formula 2.01 m2 Montserrat Licea Castillo [facility], Inc.; [employer] [place], TP[employer]. 07-18-2018 10:16-0400 Body weight 82.56 kg Montserrat Chong [facility], Inc.; [employer] [place], [employer]. 07-18-2018 10:16-0400 Diastolic blood pressure 52 mm[Hg] Montserrat Licea Castillo [facility], Inc.; [employer] [place], [employer]. 07-18-2018 10:16-0400 Heart rate 51 /min Montserrat Licea [facility] MontgomeryIntechra Holdings, TP[employer].; [employer], [employer]. 07-18-2018 10:16-0400 Systolic blood pressure 100 mm[Hg] Montserrat Chong [facility], Inc.; [employer], [employer]. 07-04-2018 08:20-0400 Body height 177.8 cm Montserrat Licea [facility] MontgomeryInte[facility] Holdings, Inc.; [employer] [place], [employer]. 07-04-2018 08:20-0400 Body mass index (BMI) [Ratio] 27.26 kg/m2 Montserrat Starkach [facility], Inc.; [employer] [place], [employer]. 07-04-2018 08:20-0400 Body surface area Derived from formula 2.04 m2 Montserrat Licea [facility] MontgomeryIntech[facility] Holdings, Inc.; [employer] [place], [employer]. 07-04-2018 08:20-0400 Body weight 86.18 kg Montserrat Licea [facility] MontgomeryIntech[employer] Holdings, [employer].; [email or web address]. 07-04-2018 08:20-0400 Diastolic blood pressure 77 mm[Hg] Montserrat Starkach [facility], Inc.; [email or web address]. 07-04-2018 08:20-0400 Heart rate 53 /min Montserrat Licea Castillo REAL ESTATE EXECUTIVE ASSISTANT [employer] [facility], Inc.; [employer]. 07-04-2018 08:20-0400 Systolic blood pressure 136 mm[Hg] Montserrat Licea Castillo REAL ESTATE EXECUTIVE ASSISTANT ClayIntech[employer], Inc.; [email or web address]. 05-07-2018 10:31-0400 Body height 177.8 cm Montserrat Licea [facility]Einstein [facility] MontgomerySilent Communication [facility], Inc.; [email or web address]. 05-07-2018 10:31-0400 Body mass index (BMI) [Ratio] 28.41 kg/m2 Montserrat Licea Castillo [facility], Inc.; [email or web address]. 05-07-2018 10:31-0400 Body surface area Derived from formula 2.08 m2 Montserrat Licea Castillo [facility] HospitalJo[facility] Inc.; [email or web address]. 05-07-2018 10:31-0400 Body weight 89.81 kg Montserrat Starkach [facility], Inc.; [email or web address]. 05-07-2018 10:31-0400 Diastolic blood pressure 69 mm[Hg] Montserrat Licea Castillo REAL ESTATE EXECUTIVE ASSISTANT [employer], Inc.; [email or web address]. 05-07-2018 10:31-0400 Heart rate 55 /min Montserrat Chatmanlabach REAL ESTATE EXECUTIVE ASSISTANT [employer].; [email or web address]. 05-07-2018 10:31-0400 Systolic blood pressure 121 mm[Hg] Montserrat Licea Castillo REAL ESTATE EXECUTIVE ASSISTANT [employer]ch[employer], Inc.; [employer], [employer]. 04-09-2018 15:03-0400 Body height 177.8 cm [facility] (scrib) [facility], Inc.; [employer]. 04-09-2018 15:03-0400 Body mass index (BMI) [Ratio] 26.97 kg/m2 [facility] (scribe) [employer] [facility], Inc.; [employer]. 04-09-2018 15:03-0400 Body surface area Derived from formula 2.03 m2 Hemanta Gogoi (scribe) [employer] [facility], Inc.; [employer]. 04-09-2018 15:03-0400 Body weight 85.28 kg Hemanta Gogoi (scribe) [employer] [facility], Inc.; [employer]. 04-09-2018 15:03-0400 Diastolic blood pressure 56 mm[Hg] Hemanta Gogoi (scribe) [employer], Inc.; [employer]. 04-09-2018 15:03-0400 Heart rate 63 /min Hemanta Gogoi (scribe) [employer], Inc.; [employer]. 04-09-2018 15:03-0400 Systolic blood pressure 98 mm[Hg] Hemanta Gogoi (scribe) [employer], Inc.; [employer]. 09-11-2017 11:12-0500 Body height 177.8 cm Gris Reyes REAL ESTATE EXECUTIVE ASSISTANT [employer], Inc.; [employer], [employer]. 09-11-2017 11:12-0500 Body mass index (BMI) [Ratio] 32.86 kg/m2 Debby Awendaw REAL ESTATE EXECUTIVE ASSISTANT [employer]ch[employer], Inc.; [employer], [employer]. 09-11-2017 11:12-0500 Body surface area Derived from formula 2.21 m2 Debby Awendaw REAL ESTATE EXECUTIVE ASSISTANT [employer], Inc.; [employer]. 09-11-2017 11:12-0500 Body weight 103.87 kg Debby Awendaw REAL ESTATE EXECUTIVE ASSISTANT [employer], Inc.; [employer]. 09-11-2017 11:12-0500 Diastolic blood pressure 82 mm[Hg] Debby Awendaw REAL ESTATE EXECUTIVE ASSISTANT [employer], Inc.; [employer]. 09-11-2017 11:12-0500 Heart rate 73 /min Debby Awendaw REAL ESTATE EXECUTIVE ASSISTANT [employer], Inc.; [employer]. 09-11-2017 11:12-0500 Systolic blood pressure 140 mm[Hg] Gris Reyes ROJAS [facility] CenterAfr[facility] Internet.; [email or web address]. 09-01-2017 10:13-0500 Body height 177.8 cm [facility], [facility].; [employer]. 09-01-2017 10:13-0500 Body mass index (BMI) [Ratio] 32.57 kg/m2 Alo Nael [facility]Cr[facility] Hospitalib) [facility], Inc.; [employer]. 09-01-2017 10:13-0500 Body surface area Derived from formula 2.2 m2 Alo Nael TrianaCr[facility]enden [facility] Hospitalibe) [facility], Inc.; [employer]. 09-01-2017 10:130500 Body weight 102.97 kg Alomu TrianaCrittenden County Hospitalscar) [facility], TP[employer].; [employer]. 09-01-2017 10:13-0500 Diastolic blood pressure 68 mm[Hg] Alo TrianaCrittenden County Hospitalscar) George [employer] [facility], Inc.; [employer]. 09-01-2017 10:13-0500 Systolic blood pressure 122 mm[Hg] Alomu Nayak ([facility]) George [employer] [facility], TP[employer].; [email or web address]. 08-24-2017 09:47-0500 Body height 177.8 cm Gaby Mathias RN George [employer] [facility] ClinicAfrigator Internet.; [email or web address]. 08-24-2017 09:47-0500 Body mass index (BMI) [Ratio] 33.43 kg/m2 Gaby Mathias RN George [employer] [facility] ClinicA[facility].; [employer]. 08-24-2017 09:47-0500 Body surface area Derived from formula 2.23 m2 Gaby Mathias RN [employer] [facility] ClinicA[facility].; [employer]. 08-24-2017 09:47-0500 Body temperature 98.6 [degF] Gaby Mathias RN George [employer] [facility] ClinicA[facility].; [email or web address]. 08-24-2017 09:47-0500 Body weight 105.69 kg Gaby Mathias RN George [employer] [facility] Clinic[facility].; [email or web address]. 08-24-2017 09:47-0500 Diastolic blood pressure 76 mm[Hg] Gaby Mathias RN [facility].; [email or web address]. 08-24-2017 09:47-0500 Heart rate 74 /min Gaby Mathias RN [facility].; [email or web address]. 08-24-2017 09:47-0500 Systolic blood pressure 144 mm[Hg] Gaby Mathias RN George [employer] [facility] Clinic[facility].; [employer]. 03-13-2017 14:21-0400 Body height 177.8 cm Alo TrianaCrittenden [facility] Hospitalibe) [facility] [employer] [facility], Inc.; [employer]. 03-13-2017 14:21-0400 Body mass index (BMI) [Ratio] 31.85 kg/m2 Alo Nayak (Scribe) [employer] [facility], Inc.; [email or web address]. 03-13-2017 14:21-0400 Body surface area Derived from formula 2.18 m2 Alomu Nayak (Scribe) George [employer] [facility] ClinicA[facility] Internet.; [email or web address]. 03-13-2017 14:21-0400 Body weight 100.7 kg Alomu Nayak (Scribe) [employer] [facility], Inc.; [email or web address]. 03-13-2017 14:21-0400 Diastolic blood pressure 84 mm[Hg] Alo TrianaScribe) [employer] [facility], Inc.; [email or web address]. 03-13-2017 14:21-0400 Heart rate 69 /min Alo TrianaScribjeny) George [employer] [facility], Inc.; [email or web address]. 03-13-2017 14:21-0400 Systolic blood pressure 138 mm[Hg] Alo TrianaScribe) [employer] [facility], Inc.; [employer] [place], [employer]. 03-03-2017 10:57-0400 Body height 177.8 cm Alo Noguera) George [employer] [facility], Inc.; [email or web address]. 03-03-2017 10:57-0400 Body mass index (BMI) [Ratio] 32.71 kg/m2 Alo Nayak (Scribe) [employer], Inc.; [employer] [facility]. 03-03-2017 10:57-0400 Body surface area Derived from formula 2.21 m2 Alo Nael (Scribe) [facility], [facility].; [employer]. 03-03-2017 10:57-0400 Body weight 103.42 kg Alo Nayak (Scribe) [facility], Inc.; [employer]. 03-03-2017 10:57-0400 Diastolic blood pressure 78 mm[Hg] Alo Nayak (Scribe) [employer] [facility], Inc.; [employer]. 03-03-2017 10:57-0400 Heart rate 62 /min Alo Nael (Scribe) [employer] [facility], Inc.; [employer]. 03-03-2017 10:57-0400 Systolic blood pressure 146 mm[Hg] Alo Nayak (Scribe) [employer] [facility], Inc.; [employer]. 08-15-2016 10:45-0500 Body height 177.8 cm Cindy K Mutersbaugh REAL ESTATE EXECUTIVE ASSISTANT [employer] [facility]Syn[facility].; [email or web address]. 08-15-2016 10:45-0500 Body mass index (BMI) [Ratio] 32.43 kg/m2 Cindy K Mutersbaugh REAL ESTATE EXECUTIVE ASSISTANT [employer] [facility], Inc.; [email or web address]. 08-15-2016 10:45-0500 Body surface area Derived from formula 2.2 m2 Cindy K Mutersbaugh REAL ESTATE EXECUTIVE ASSISTANT [employer] [facility] ClinicSyn[facility] Inc.; [employer]. 08-15-2016 10:45-0500 Body weight 102.51 kg Cindy K Mutersbaugh REAL ESTATE EXECUTIVE ASSISTANT [employer].; [email or web address]. 08-15-2016 10:45-0500 Diastolic blood pressure 86 mm[Hg] Cindy K Mutersbaugh REAL ESTATE EXECUTIVE ASSISTANT [employer], Inc.; [employer], [employer]. 08-15-2016 10:45-0500 Heart rate 70 /min Cindy K Mutersbaugh REAL ESTATE EXECUTIVE ASSISTANT [employer], Inc.; [employer]. 08-15-2016 10:45-0500 Systolic blood pressure 145 mm[Hg] Cindy K Mutersbaugh REAL ESTATE EXECUTIVE ASSISTANT [employer] [facility], Inc.; [employer]. 01-25-2016 13:03-0400 Body height 177.8 cm Cindy K Mutersbaugh REAL ESTATE EXECUTIVE ASSISTANT [employer] [facility], Inc.; [employer]. 01-25-2016 13:03-0400 Body mass index (BMI) [Ratio] 31.42 kg/m2 Cindy K Mutersbaugh REAL ESTATE EXECUTIVE ASSISTANT [employer] [facility], Inc.; [employer]. 01-25-2016 13:03-0400 Body surface area Derived from formula 2.17 m2 Cindy K Mutersbaugh REAL ESTATE EXECUTIVE ASSISTANT [employer], [employer].; [employer]. 01-25-2016 13:03-0400 Body weight 99.34 kg Cindy K Mutersbaugh REAL ESTATE EXECUTIVE ASSISTANT [employer], [employer].; [employer]. 01-25-2016 13:03-0400 Diastolic blood pressure 83 mm[Hg] Cindy K Mutersbaugh REAL ESTATE EXECUTIVE ASSISTANT [employer], [employer].; [employer]. 01-25-2016 13:03-0400 Heart rate 57 /min Cindy K Mutersbaugh [facility], Inc.; [employer], [employer]. 01-25-2016 13:03-0400 Systolic blood pressure 107 mm[Hg] Cindy K Mutersbaugh REAL ESTATE EXECUTIVE ASSISTANT [employer], [employer].; [employer]. 10-08-2015 10:56-0500 Body height 177.8 cm [facility], Inc.; [employer], [employer]. 10-08-2015 10:56-0500 Body mass index (BMI) [Ratio] 32.57 kg/m2 [facility], Inc.; [employer], [employer]. 10-08-2015 10:56-0500 Body surface area Derived from formula 2.2 m2 [facility], Inc.; [employer], [employer]. 10-08-2015 10:56-0500 Body weight 102.97 kg [facility] HospitalIntechra Holdings, Inc.; [employer]. 10-08-2015 10:56-0500 Diastolic blood pressure 78 mm[Hg] Gris Reyes [facility] Inc.; [employer]. 10-08-2015 10:56-0500 Heart rate 72 /min Gris Reyes [facility], Inc.; [employer]. 10-08-2015 10:56-0500 Systolic blood pressure 160 mm[Hg] Gris Reyes [facility], Inc.; [employer]. 04-09-2015 10:44-0400 Body height 177.8 cm Rox Starkey REAL ESTATE EXECUTIVE ASSISTANT [employer] [facility], Inc.; [employer]. 04-09-2015 10:44-0400 Body mass index (BMI) [Ratio] 31.71 kg/m2 Rox Starkey [facility], Inc.; [employer]. 04-09-2015 10:44-0400 Body surface area Derived from formula 2.18 m2 Rox Starkey REAL ESTATE EXECUTIVE ASSISTANT [employer] [facility], Inc.; [employer], [employer]. 04-09-2015 10:44-0400 Body weight 100.25 kg Rox Starkey [facility], Inc.; [employer], [employer]. 04-09-2015 10:44-0400 Diastolic blood pressure 73 mm[Hg] Rox Starkey [facility], Inc.; [employer]. 04-09-2015 10:44-0400 Heart rate 65 /min Rox Starkey REAL ESTATE EXECUTIVE ASSISTANT [employer], Inc.; [employer], [employer]. 04-09-2015 10:44-0400 Systolic blood pressure 141 mm[Hg] Rox Starkey [facility], Inc.; [employer], [employer]. 02-12-2015 08:08-0400 Body height 177.8 cm Amanda Guzman MD Work Phone: [email or web address].; [employer], [employer]. 02-12-2015 08:08-0400 Body mass index (BMI) [Ratio] 31.14 kg/m2 Amanda Guzman MD Work Phone: [employer].; [email or web address]. 02-12-2015 08:08-0400 Body surface area Derived from formula 2.16 m2 Amanda Guzman MD Work Phone: [employer].; [employer]. 02-12-2015 08:08-0400 Body weight 98.43 kg Amanda Guzman MD Work Phone: [employer].; [email or web address]. 02-12-2015 08:08-0400 Diastolic blood pressure 86 mm[Hg] Amanda Guzman MD Work Phone: [employer].; [employer]. 02-12-2015 08:08-0400 Heart rate 65 /min Amanda Guzman MD Work Phone: [employer].; [employer]. 02-12-2015 08:08-0400 Systolic blood pressure 128 mm[Hg] Amanda Guzman MD Work Phone: [employer].; [email or web address]. 12-30-2014 12:23-0400 Body height 177.8 cm Amanda Guzman MD Work Phone: [employer].; [email or web address]. 12-30-2014 12:23-0400 Body mass index (BMI) [Ratio] 31.32 kg/m2 Amanda Guzman MD Work Phone: [employer].; [email or web address]. 12-30-2014 12:23-0400 Body surface area Derived from formula 2.17 m2 Amanda Guzman MD Work Phone: [email or web address].; [email or web address]. 12-30-2014 12:23-0400 Body weight 99 kg Amanda Guzman MD Work Phone: [email or web address].; [email or web address]. 12-30-2014 12:23-0400 Diastolic blood pressure 84 mm[Hg] Amanda Guzman MD Work Phone: [email or web address].; [employer] 12-30-2014 12:23-0400 Heart rate 64 /min Amanda Guzman MD Work Phone: [email or web address].; [employer] 12-30-2014 12:23-0400 Systolic blood pressure 152 mm[Hg] Amanda Guzman MD Work Phone: [employer] 06-16-2014 11:03-0400 Body height 177.8 cm Ronald Bateman MD Work Phone: [email or web address].; [employer] 06-16-2014 11:03-0400 Body mass index (BMI) [Ratio] 30.56 kg/m2 Ronald Bateman MD Work Phone: [email or web address].; [employer] 06-16-2014 11:03-0400 Body surface area Derived from formula 2.14 m2 Ronald Bateman MD Work Phone: [email or web address].; [employer] 06-16-2014 11:03-0400 Body weight 96.62 kg Ronald Bateman MD Work Phone: [email or web address].; [employer] 06-16-2014 11:03-0400 Diastolic blood pressure 80 mm[Hg] Ronald Bateman MD Work Phone: [email or web address].; [employer] 06-16-2014 11:03-0400 Heart rate 73 /min Ronald Bateman MD Work Phone: [email or web address].; [employer] 06-16-2014 11:03-0400 Systolic blood pressure 142 mm[Hg] Ronald Bateman MD Work Phone: [email or web address].; [employer] 05-30-2014 10:45-0400 Body height 177.8 cm Rox Starkey LPN [employer].; [email or web address]. 05-30-2014 10:45-0400 Body mass index (BMI) [Ratio] 30.71 kg/m2 Rox Starkey LPN [employer].; [employer] 05-30-2014 10:45-0400 Body surface area Derived from formula 2.15 m2 Rox Starkey LPN [employer].; [employer]. 05-30-2014 10:45-0400 Body weight 97.07 kg Rox Starkey LPN [employer], Inc.; [employer], [employer]. 05-30-2014 10:45-0400 Diastolic blood pressure 97 mm[Hg] Rox Starkey LPN [employer].; [employer]. 05-30-2014 10:45-0400 Heart rate 68 /min Rox Starkey LPN [employer], [employer].; [employer]. 05-30-2014 10:45-0400 Systolic blood pressure 169 mm[Hg] Rox Starkey LPN [employer] 12-16-2013 13:30-0400 Body weight 99.79 kg Ronald Bateman MD Work Phone: [employer] 12-16-2013 13:30-0400 Diastolic blood pressure 92 mm[Hg] Ronald Bateman MD Work Phone: [employer] 12-16-2013 13:30-0400 Heart rate 65 /min Ronald Bateman MD Work Phone: [email or web address] 12-16-2013 13:30-0400 Systolic blood pressure 162 mm[Hg] Ronald Bateman MD Work Phone: [employer] 06-17-2013 10:30-0400 Body weight 99.34 kg Ronald Bateman MD Work Phone: [employer] 06-17-2013 10:30-0400 Diastolic blood pressure 78 mm[Hg] Ronald Bateman MD Work Phone: George [employer] [facility].; [email or web address]. 06-17-2013 10:30-0400 Heart rate 71 /min Ronald Bateman MD Work Phone: George [employer].; [email or web address]. 06-17-2013 10:30-0400 Systolic blood pressure 148 mm[Hg] Ronald Bateman MD Work Phone: Clay [employer].; [email or web address]. 09-05-2012 11:09-0500 Body height 177.8 cm Gris Reyes [facility] [employer] [facility], [employer].; [employer], [employer]. 09-05-2012 11:09-0500 Body mass index (BMI) [Ratio] 31.57 kg/m2 [facility] Amy [facility] [employer] [facility], Inc.; [employer], [employer]. 09-05-2012 11:09-0500 Body surface area Derived from formula 2.17 m2 Debby Amy [facility] [employer] [facility], [employer].; [employer], [employer]. 09-05-2012 11:09-0500 Body temperature 98.3 [degF] Gris Reyes [facility] [employer] [facility], Inc.; [employer], [employer]. 09-05-2012 11:09-0500 Body weight 99.79 kg Debby Amy [facility] [employer] [facility], [employer].; [employer], [employer]. 09-05-2012 11:09-0500 Diastolic blood pressure 82 mm[Hg] Gris Reyes [facility] [employer] [facility], [employer].; [email or web address]. 09-05-2012 11:09-0500 Heart rate 65 /min Debby [facility] [employer] [facility], [employer].; [email or web address]. 09-05-2012 11:09-0500 Inhaled oxygen concentration 20 % [facility] Amy [facility] [employer] [facility], Inc.; [email or web address]. 09-05-2012 11:09-0500 SaO2% (BldA) [Mass fraction] 98 % [facility] Inc.; [email or web address]. 09-05-2012 11:09-0500 Systolic blood pressure 165 mm[Hg] [facility] Inc.; [employer] 08-09-2012 10:19-0500 Body height 177.8 cm Ronald Bateman MD Work Phone: [email or web address].; [employer] 08-09-2012 10:19-0500 Body mass index (BMI) [Ratio] 31.42 kg/m2 Ronald Bateman MD Work Phone: [email or web address].; [email or web address] 08-09-2012 10:19-0500 Body surface area Derived from formula 2.17 m2 Ronald Bateman MD Work Phone: [email or web address].; [email or web address]. 08-09-2012 10:19-0500 Body weight 99.34 kg Ronald Bateman MD Work Phone: [employer] 08-09-2012 10:19-0500 Diastolic blood pressure 80 mm[Hg] Ronald Bateman MD Work Phone: [employer] 08-09-2012 10:19-0500 Heart rate 63 /min Ronald Bateman MD Work Phone: [employer] 08-09-2012 10:19-0500 Systolic blood pressure 152 mm[Hg] Ronald Bateman MD Work Phone: [employer] 02-15-2012 10:25-0400 Body height 177.8 cm Ronald Bateman MD Work Phone: [employer] 02-15-2012 10:25-0400 Body mass index (BMI) [Ratio] 31.28 kg/m2 Ronald Bateman MD Work Phone: [employer] 02-15-2012 10:25-0400 Body surface area Derived from formula 2.17 m2 Ronald Bateman MD Work Phone: [employer] 02-15-2012 10:25-0400 Body weight 98.88 kg Ronald Bateman MD Work Phone: [employer] 02-15-2012 10:25-0400 Diastolic blood pressure 84 mm[Hg] Ronald Bateman MD Work Phone: [employer] 02-15-2012 10:25-0400 Heart rate 58 /min Ronald Bateman MD Work Phone: [employer] 02-15-2012 10:25-0400 Systolic blood pressure 128 mm[Hg] Ronald Bateman MD Work Phone: [employer] 01-28-2011 13:09-0400 Body weight 96.16 kg Edna Faria LPN [employer] 01-28-2011 13:09-0400 Diastolic blood pressure 81 mm[Hg] Edna Faria LPN [employer] 01-28-2011 13:09-0400 Heart rate 62 /min Edna Faria LPN [employer] 01-28-2011 13:09-0400 Systolic blood pressure 164 mm[Hg] Edna Faria LPN [employer] 11-08-2010 12:09-0500 Body weight 95.26 kg Ronald Bateman MD Work Phone: [employer] 11-08-2010 12:09-0500 Diastolic blood pressure 95 mm[Hg] Ronald Bateman MD Work Phone: [employer] 11-08-2010 12:09-0500 Heart rate 71 /min Ronald Bateman MD Work Phone: [employer] 11-08-2010 12:09-0500 Systolic blood pressure 175 mm[Hg] Ronald Bateman MD Work Phone: [employer] 10-04-2010 16:47-0500 Body temperature 98 [degF] Montserrat Chong [facility] [employer] 10-04-2010 16:47-0500 Body weight 97.07 kg Montserrat Chong [facility] [employer] 10-04-2010 16:47-0500 Diastolic blood pressure 92 mm[Hg] Montserrat Chong LPN [employer] 10-04-2010 16:47-0500 Heart rate 70 /min Montserrat Chong LPN [employer] 10-04-2010 16:47-0500 Systolic blood pressure 191 mm[Hg] Montserrat Chong [facility] [employer] Encounters Encounter Date Encounter Type Care Provider Facility Start: 11-01-2023 End: 11-01-2023 Kaylin Hui PA-C Work Phone: [employer] Start: 09-29-2023 End: 09-29-2023 ambulatory AMANDA ADAMS Facility:[facility] Start: 09-28-2023 End: 09-28-2023 ambulatory STEFF [facility] Start: 09-28-2023 End: 09-28-2023 Office outpatient visit 25 minutes Steff Muhammad MD Work Phone: [facility] Neuroscience Procedures Date Procedure Procedure Detail [...] od, [place] Start: 05-31-2014 End: 05-31-2014 Injection single/activities therapist trigger point 1/2 muscles Amanda Guzman MD [...] Provider Unknown H/O: gastrostomy Judy Zau gg REAL ESTATE EXECUTIVE ASSISTANT H/O: gastrostomy Kaylin Pal miguel PA-C Work Phone: Implantation of auto matic cardiac defibrillator Alexa Vieyra [place] Incision of trachea Referrin g Provider Unknown Insertion of pulse g enerator of implantable cardioverter defibrillator Referring Provider Unknown Plan of Treatment Date Care Activity Detail Author Start: 11-26-2025 DIABETES SCREEN DIABETES SCREEN [facility] Start: 11-26-2025 Diabetes Screening Diabetes Screening [facility] Start: 05-27-2025 DTaP/Tdap/Td Vaccines (2 - Td or Tdap) DTaP/Tdap/Td Vaccines (2 - Td or Tdap) [facility] Start: 05-16-2024 DIABETES SCREEN DIABETES SCREEN [facility] Start: 02-27-2024 End: 02-27-2024 Patient encounter procedure 02/27/2024 1:00 PM EDT Office Visit [facility] [address] [phone] Steff Muhammad MD [address] [address] [facility] Start: 09-28-2023 End: 09-28-2023 Patient encounter procedure 09/28/2023 1:30 PM EST Office Visit [facility] [address] [phone] Steff Muhammad MD [address] [address] [facility] Start: 08-30-2023 End: 11-29-2023 CREATININE BLD CREATININE BLD Lab Routine Chronic pancreatitis, unspecified pancreatitis type (HCC) Expected: 08/30/2023, Expires: 11/29/2023 [facility] Work Phone: Immunizations Immunization Date Immunization Notes Care Provider Navi morrissey 08-26-2022 Kaylin Hui PA-C Work Phone: [facility] [employer] [facility] 08-26-2022 influenza virus vaccine, unspecified formulation Steff Muhammad MD Work Phone: [facility] 07-27-2021 Moderna COVID-19 Vaccine 100 MCG/0.5ML Intramuscular Suspension Referring Provider Unknown XX-Nrbcfsv-Usbbqe l 2100 Work Phone: 07-26-2021 Kaylin Hui PA-C Work Phone: [facility]. 07-13-2021 Fluzone High-Dose Quadrivalent 0.7 ML Intramuscular Suspension Prefilled Syringe Referring Provider Unknown TB-Zkojksm-Civhpj l 2100 Work Phone: 07-13-2021 pneumococcal polysaccharide vaccine, 23 valent Referring Provider Unknown ZB-Jvcfuan-Kknmmx l 2100 Work Phone: 12-03-2020 Moderna COVID-19 Vaccine 100 MCG/0.5ML Intramuscular Suspension Referring Provider Unknown [facility]. 11-05-2020 Moderna COVID-19 Vaccine 100 MCG/0.5ML Intramuscular Suspension Referring Provider Unknown [facility] [employer] [facility] [employer] [facility]. 07-30-2020 zoster vaccine recombinant Sonu Riojas MD Work Phone: [facility] 07-16-2020 influenza, high dose seasonal, preservative-free Kaylin Hui PA-C Work Phone: [employer] [facility] [employer] 07-16-2020 influenza, high-dose , quadrivalent vaccine (FLUZONE HIGH DOSE QUADRIVALENT) Sonu Riojas MD Work Phone: [facility] 04-17-2020 zoster vaccine recombinant Sonu Riojas MD Work Phone: [facility] 08-02-2019 influenza, injectabl e, quadrivalent, contains preservative Sonu Riojas MD Work Phone: [facility] 09-14-2018 pneumococcal conjuga te vaccine, 13 valent Sonu Riojas MD Work Phone: [facility] 06-26-2018 influenza, injectabl e, quadrivalent, contains preservative Referring Provider Unknown [facility] 11-17-2017 influenza, high dose seasonal, preservative-free Sonu Riojas MD Work Phone: [facility] 05-27-2015 tetanus toxoid, redu thea diphtheria toxoid, and acellular pertussis vaccine, adsorbed Kaylin Hui PA-C Work Phone: [facility].; [facility]. NEGATED: Highlighted row has not occurred!05-16-2021 pneumococcal polysaccharide vaccine, 23 valent Sonu Riojas MD Work Phone: [facility] NEGATED: Highlighted row has not occurred! influenza, seasonal, injectable Kaylin Hui PA-C Work Phone: [facility].; [facility]. Payers Date Payer Category Payer Unknown [place] [id number] 2020-Present [phone] [address] [place] [address] Indemnity [id number] 2019 Unknown 2019 Unknown [id number] 2018 Private Health Insurance 2017 Medicare MEDICARE MEDICAR E A AND B [id number] 2017-Present [phone] [address] [address] [place] [address] Medicare [id number] 2017 Medicare [id number] 2017 Medicare [id number] 1950 Unknown [id number] 1950 Unknown [id number] 1950 Unknown [id number] 1950 Unknown [id number] 1950 Unknown [id number] 1950 Unknown [id number] 1950 Unknown [id number] Private Health Insurance [id number] Social History Date Type Detail Facility Tobacco smoking stat [facility] Unknown if ever smoked [facility] Start: 1950 Sex Assigned At Not on file [facility] Start: 05-03-2017 End: 07-27-2022 Tobacco smoking status PRIS Ex-smoker [facility] Work Phone: End: 05-03-2007 History of tobacco use Current smoker [facility] Work Phone: End: 05-03-2007 History of tobacco use Cigarette Smoker [facility] Work Phone: Start: 05-03-2017 End: 04-12-2023 Tobacco use and exposure Smokeless tobacco non-user [facility] Work Phone: Start: 06-16-2021 End: 09-28-2023 Alcohol intake Current drinker of alcohol (finding) [facility] Start: 06-16-2021 End: 04-12-2023 Alcohol intake [facility] Start: 07-14-2020 End: 07-27-2022 Tobacco Comment social smoker. [facility] Start: 1950 Sex Assigned At Male [facility] Start: 01-30-2022 End: 04-19-2023 Exposure to SARS-CoV-2 (event) Not sure [facility] Tobacco smoking consumption unknown [facility] Start: 09-27-2022 End: 04-12-2023 Tobacco use panel [facility] Start: 02-08-2021 Gender identity Identifies as male gender (finding) [facility] Start: 02-08-2021 Sexual orientation Heterosexual (finding) [facility] Start: 04-12-2023 Tobacco smoking status NHIS Never smoked tobacco [facility] National Score (1-10 0), lower number is lower risk 50 [facility] Never smoker. [facility] Medical Equipment Procedure Code Equipment Code Equipment Origin al Text Equipment Identifier Dates Kit [employer]onsky 20fr Silicone Peg Pull Method Safety Sterile - [id number] Start: 10-31-2017 Tube Bivona Tts 10.5mm 7.5mm Silicone 80mm Tracheostomy Cuffed Adult - [id number] Start: 10-31-2017 Clinical Notes 09-25-2017 to 09-29-2023 Steff Muhammad MD - 09/28/2023 1:30 PM ESTAddendum Note - Steff Muhammad MD - 09/28/2023 1:30 PM ESTAddendum Note - Steff Muhammad MD - 09/28/2023 1:30 PM Magi Stallings - 04/21/2023 8:37 AM EDT Note Date & Type Note Facility 09-29-2023 Note HNO ID: [id number] Author: AMANDA ADAMS MD Service: ? Author Type: Physician Type: Progress Notes Filed: 09/29/2023 07:46 Note Text: HPB PROGRESS NOTE: Patient Name: Amanda Newell Nimral ASSESSMENT AND PLAN: 72 year old male [...] visit. Either the patient or their legal airline security representative has been informed of the risks [...] Low Je Adams MD B surgery Pager: [phone] [place] 09-28-2023 Note Addended by: STEFF MUHAMMAD on: 09/28/2023 02:10 PM Modules accepted: Orders [facility] 09-28-2023 History of Present illness Narrative Images from the original note were not included. [facility] [address] [facility] [address] Dept: [phone] Dept Loc: [phone] Steff Muhammad MD CHIEF COMPLAINT: Chief Complaint [...] , Rfl: ergocalciferol (Vitamin D2) 1.25 MG (15251 UT) capsule, Take by mouth once a [...] , Rfl: ergocalciferol (Vitamin D-2) 1.25 MG (86682 UT) capsule, Take 1.25 mg by mouth [...] EEG Com MR MRA BRAIN OR NECK [place] [address] Patient: AMANDA KINNEY Phone#: : 1950 Age: 64 Gender: M Pt. Type: Out Account: [id number] Location: [facility] Ordering: ANIYA LOTT Exam Date: 06/24/2015/10:00 Family Phys: AMANDA GUZMAN Charge Code: [id number] Physician: [place] Order #: [id number] DLP Dose#: PROCEDURE: MR ANGIOGRAPHY BRAIN WITHOUT [...] dictation time shown below. Dictated by: Liya Msaon MD on 06/25/2015 at 18:30 Continued Report - Page 2 of 2 Patient: AMANDA KINNEY Phone#: : 1950 Age: 64 Gender: M Pt. Type: Out Account: [id number] Location: [facility] Ordering: ANIYA LOTT Exam Date: 06/24/2015/10:0 [facility] RADIOLOGY REPORT Patient name: NIRMAL SCHNEIDER TranscrpIN: BRISA Acct number: [id number] Age: 60 Sex: MFinancial Class: CB2 date: 1950Stay type: O/PMed Rec Num: [id number] Admit date: 03/05/11Room: X-ray number:[id number] Disch date: 03/05/11Phone: Location: Admit Phys: JB FAJARDOOrder Num: [id number] Physician 2 : Ordering Phy: JB Dumont Phys: MR MRI BRAIN W/O CONTRAST [id number] COMPLETE:03/05/11 13:37 JLW [id number] (REASON FOR TEST: ANEURYSM OR TUMOR *corrections, [...] 03.07.11 MR MRA BRAIN OR NECK WO [facility] RADIOLOGY REPORT Patient name: NIRMAL SCHNEIDER TranscrpIN: BRISA Acct number: [id number] Age: 60 Sex: MFinancial Class: CB2 date: 1950Stay type: O/PMed Rec Num: [id number] Admit date: 03/05/11Room: X-ray number:[id number] Disch date: 03/05/11Phone: Location: Admit Phys: JB FAJARDOOrder Num: [id number] Physician 2 : Ordering Phy: JB Dumont Phys: MR MRA BRAIN OR NECK WO CONTR [id number] COMPLETE:03/05/11 13:37 JLW [id number] (REASON FOR TEST: ANEURYSM OR TUMOR Unsigned transcriptions represent a preliminary report and do not reflect *corrections, additions and/or subtractions to the information c ontained in this report.* RADIOLOGY REPORT CLOSE R WYATT 1 \CNTo\ MRA OF THE BRAIN Images were obtained in multiple phases without contrast. The carotid and basilar artery are normal in caliber. The [place] is unremarkable in configuration. The [...] Exam End: -- Specimen Collected: 11/03/17 13:43 [facility] Bedside Video EEG Monitoring Patient: Amanda Kinney - [id number] Date: 04 Nov 2017 Requested by: Ramesh [...] 11/04/17 Last Resulted: 11/05/17 11:02 Received From: [facility] Result Received: 04/11/23 22:23 CBC: No [...] TSH VITAMIN B12: No results found for: [id number] FERRITIN: No results found for: FERRITIN ---- [...] , Rfl: ergocalciferol (Vitamin D-2) 1.25 MG (47017 UT) capsule, Take 1.25 mg by mouth [...] electrodes were positioned in person by an chief radiologic technologist, following patient education, according to the 10-20 International system of electrode placement and maintained for integrity and quality of the recording. EEG data with video was recorded continuously and digitally stored. The chief radiologic technologist reviewed all automated detections and manual [...] IMMUNOGLOBUL , OLIGOBANDS No results found for: FML16FI , HEPCAB No results found for: CRP [...] Morin. 40 minutes documented in this encounter [facility] 09-28-2023 Miscellaneous Notes Addended by: STEFF MUHAMMAD on: 09/28/2023 02:10 PM Modules accepted: Orders documented in this encounter [facility] 09-28-2023 Note Addended by: STEFF MUHAMMAD on: 09/28/2023 02:10 PM Modules accepted: Orders [facility] 09-28-2023 Note Addended by: STEFF MUHAMMAD on: 09/28/2023 02:10 PM Modules accepted: Orders [facility] 09-16-2023 Note . MICRO - Microbiology PROCEDURE: [...] Order Comments O1: Blood Culture (bacterial) fax [phone] Performing Locations *1: This test was performed at: [facility], [address] [place] [address], [address] , [facility] ([place]) 08-31-2023 Note HNO ID: [id number] Author: Gaby Chris RT(R) Service: ? Author Type: Modeling Instructor Type: Progress Notes Filed: 08/31/2023 3:14 PM [...] DATE: August 31, 2023 TIME: 3:13 PM [place] 08-31-2023 History of Present illness Narrative Radiology [...] TIME: 3:13 PM documented in this encounter [facility] 08-29-[address] Please [address] order for stat creatinine order for pt , pt appt 08/31/[address] I will call pt when it is placed documented in this encounter [facility] 06-20-2023 History of Present illness Narrative Images from the original note were not included. [facility] [address] [facility] [address] Dept: [phone] Dept Loc: [phone] Steff Muhammad MD Patient was seen today [...] stated that they are currently in the [facility]. If the patient is a minor, permission [...] , Rfl: ergocalciferol (Vitamin D-2) 1.25 MG (62963 UT) capsule, Take 1.25 mg by mouth [...] EEG Com MR MRA BRAIN OR NECK [place] [address] Patient: AMANDA KINNEY Phone#: : 1950 Age: 64 Gender: M Pt. Type: Out Account: [id number] Location: [facility] Ordering: ANIYA LOTT Exam Date: 06/24/2015/10:00 Family Phys: AMANDA GUZMAN Charge Code: [id number] Physician: Hockley Order #: [id number] DLP Dose#: PROCEDURE: MR ANGIOGRAPHY BRAIN WITHOUT [...] 64 Gender: M Pt. Type: Out Account: [id number] Location: [facility] Ordering: ANIYA LOTT Exam Date: 06/24/2015/10:0 [facility] RADIOLOG[facility] REPORT Patient name: NIRMAL SCNHEIDER TranscrpIN: BRISA Acct number: [id number] Age: 60 Sex: MFinancial Class: CB2 date: 1950Stay type: O/PMed Rec Num: [id number] Admit date: 03/05/11Room: X-ray number:[id number] Disch date: 03/05/11Phone: Location: Admit Phys: JB FAJARDOOrder Num: [id number] Physician 2 : Ordering Phy: JB Dumont Phys: MR MRI BRAIN W/O CONTRAST [id number] COMPLETE:03/05/11 13:37 [facility] [place] [id number] (REASON FOR TEST: ANEURYSM OR TUMOR *corrections, [...] name: NIRMAL SCHNEIDER TranscrpIN: BRISA Acct number: [id number] Age: 60 Sex: MFinancial Class: CB2 date: 1950Stay type: O/PMed Rec Num: [id number] Admit date: 03/05/11Room: X-ray number:[id number] Disch date: 03/05/11Phone: Location: Admit Phys: JB FAJARDOOrder Num: [id number] Physician 2 : Ordering Phy: JB Dumont Phys: MR MRA BRAIN OR NECK WO CONTR [id number] COMPLETE:03/05/11 13:37 JLW [id number] (REASON FOR TEST: ANEURYSM OR TUMOR Unsigned transcriptions represent a preliminary report and do not reflect *corrections, additions and/or subtractions to the information c ontained in this report.* RADIOLOGY REPORT NIRMAL SCHNEIDER 1 \CNTo\ MRA OF THE BRAIN Images were obtained in multiple phases without contrast. The carotid and basilar artery are normal in caliber. The [place] is unremarkable in configuration. The [...] Exam End: -- Specimen Collected: 11/03/17 13:43 [facility] Bedside Video EEG Monitoring Patient: Amanda Kinney - [id number] Date: 04 Nov 2017 Requested by: Ramesh [...] 11/04/17 Last Resulted: 11/05/17 11:02 Received From: [facility] Result Received: 04/11/23 22:23 CBC: No [...] TSH VITAMIN B12: No results found for: [id number] FERRITIN: No results found for: FERRITIN ---- [...] , Rfl: ergocalciferol (Vitamin D-2) 1.25 MG (00282 UT) capsule, Take 1.25 mg by mouth [...] electrodes were positioned in person by an chief radiologic technologist, following patient education, according to the 10-20 International system of electrode placement and maintained for integrity and quality of the recording. EEG data with video was recorded continuously and digitally stored. The chief radiologic technologist reviewed all automated detections and manual [...] IMMUNOGLOBUL , OLIGOBANDS No results found for: ICV30DU , HEPCAB No results found for: CRP , ANATITER , ANCA MRI at [facility] in April per report: Chronic small [...] arranging for studies. documented in this encounter [facility] 05-25-2023 Note Office received [facility] request via fax from [facility]. Please see patient's chart. H&P, EEG report and Last progress note faxed today to [facility] to fax number- [phone]. [facility] 04-21-2023 Note HNO ID: [id number] Author: Magi Quintero Service: ? Author Type: ? Type: Progress Notes Filed: 04/21/2023 10:15 AM Note Text: HPB - OUTPATIENT CLINIC NOTE PATIENT NAME: Amanda Kinney DATE of SERVICE: April 21, 2023 TIME of SERVICE: 8:38 AM PCP: Kaylin Hui Mr. 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 PMHx includes [place] s/p CABG, CAD, CHF, HTN, HLD and [...] Patient was seen as an outpatient at [facility] on 05/03/17 for this neuroendocrine tumor, at which time the recommendations were MRCP and follow-up in 6 months with imaging. The patient was subsequently lost to follow-up, and we have no records of an MRCP. 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 PMHx is remarkable for [place] s/p CABG, CAD, CHF, HTN, HLD and [...] of the neuroend (more content not included)... [place] 04-21-2023 History and physical note INITIAL PANCREATIC [...] 2018 Heart disease High cholesterol HTN (hypertension) LA, old 2013 no surgery, no stents PAST [...] of a pancreatic neuroendocrine tumor. PMHx includes [place] s/p CABG, CAD, CHF, HTN, HLD and [...] Patient was seen as an outpatient at [facility] on 05/03/17 for this neuroendocrine tumor, at which time the recommendations were MRCP and follow-up in 6 months with imaging. The patient was subsequently lost to follow-up, and we have no records of an MRCP. 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 PMHx is remarkable for [place] s/p CABG, CAD, CHF, HTN, HLD and [...] Magi Quintero, MS4 documented in this encounter [facility] 04-21-2023 Nurse Note What is the reason for your visit today? Consult Who is your referring physician? Dr. Adams Are you having poor oral intake? NO Have you had unintentional weight loss of 15 lbs/7 Kg in the last 3-6 months? NO Bowels: regular Wound: clean & dry Temperature: No Drains: No documented in this encounter [facility] 04-19-2023 Note EEG REPORT Patient Name: [...] , Rfl: ergocalciferol (Vitamin D-2) 1.25 MG (17606 UT) capsule, Take 1.25 mg by mouth [...] electrodes were positioned in person by an chief radiologic technologist, following patient education, according to the 10-20 International system of electrode placement and maintained for integrity and quality of the recording. EEG data with video was recorded continuously and digitally stored. The chief radiologic technologist reviewed all automated detections and manual [...] is a normal awake and asleep EEG. [facility] 04-19-2023 Procedure note Associated Ord [...] , Rfl: ergocalciferol (Vitamin D-2) 1.25 MG (03392 UT) capsule, Take 1.25 mg by mouth [...] electrodes were positioned in person by an chief radiologic technologist, following patient education, according to the 10-20 International system of electrode placement and maintained for integrity and quality of the recording. EEG data with video was recorded continuously and digitally stored. The chief radiologic technologist reviewed all automated detections and manual [...] a normal awake and asleep EEG. T [facility] 04-19-2023 Procedure note Associated Ord er(s): [...] , Rfl: ergocalciferol (Vitamin D-2) 1.25 MG (96117 UT) capsule, Take 1.25 mg by mouth [...] electrodes were positioned in person by an chief radiologic technologist, following patient education, according to the 10-20 International system of electrode placement and maintained for integrity and quality of the recording. EEG data with video was recorded continuously and digitally stored. The chief radiologic technologist reviewed all automated detections and manual [...] and asleep EEG. documented in this encounter [facility] 04-12-2023 History of Present illness Narrative Images from the original note were not included. [facility] [address] [facility] [address] Dept: [phone] Dept Loc: [phone] Steff Muhammad MD Thank you for your [...] a past medical history of Cardiac arrest ([facility]), Congestive heart failure (CHF) ([facility]) ([facility]), Stroke ([facility]), and Syncope. Past Surgical History: has a [...] , Rfl: ergocalciferol (Vitamin D-2) 1.25 MG (01846 UT) capsule, Take 1.25 mg by mouth [...] EEG Com MR MRA BRAIN OR NECK [place] [address] Patient: AMANDA KINNEY Phone#: : 1950 Age: 64 Gender: M Pt. Type: Out Account: [id number] Location: [facility] Ordering: ANIYA LOTT Exam Date: 06/24/2015/10:00 Family Phys: AMANDA GUZMAN Charge Code: [id number] Physician: Hock[place] Order #: [id number] DLP Dose#: PROCEDURE: MR ANGIOGRAPHY BRAIN WITHOUT [...] 64 Gender: M Pt. Type: Out Account: [id number] Location: 010 Ordering: ANIYA LOTT Exam Date: 06/24/2015/10:0 [facility] RADIOLOGY REPORT Patient name: NIRMAL SCHNEIDER TranscrpIN: [facility] Acct number: [id number] Age: 60 Sex: MFinancial Class: CB2 date: 1950 type: O/PMed Rec Num: [id number] Admit date: 03/05/11Room: X-ray number:[id number] Disch date: 03/05/11Phone: Location: Admit Phys: JB FAJARDOOrder Num: [id number] Physician 2 : Ordering Phy: JB Dumont Phys: MR MRI BRAIN W/O CONTRAST [id number] COMPLETE:03/05/11 13:37 JLW [id number] (REASON FOR TEST: ANEURYSM OR TUMOR *corrections, [...] MR MRA BRAIN OR NECK WO CONTRAST [facility] RADIOLOGY REPORT Patient name: NIRMAL SCHNEIDER TranscrpIN: KLL Acct number: [id number] Age: 60 Sex: MFinancial Class: CB2 date: 1950[facility] type: O/PMed Rec Num: [id number] Admit date: 03/05/11Room: X-ray number:[id number] Disch date: 03/05/11Phone: Location: Admit Phys: JB FAJARDOOrder Num: [id number] Physician 2 : Ordering Phy: JB Dumont Phys: MR MRA BRAIN OR NECK WO CONTR [id number] COMPLETE:03/05/11 13:37 JLW [id number] (REASON FOR TEST: ANEURYSM OR TUMOR Unsigned transcriptions represent a preliminary report and do not reflect *corrections, additions and/or subtractions to the information c ontained in this report.* RADIOLOGY REPORT CLOSE R WYATT 1 \CNTo\ MRA OF THE BRAIN Images were obtained in multiple phases without contrast. The carotid and basilar artery are normal in caliber. The [place] is unremarkable in configuration. The [...] Exam End: -- Specimen Collected: 11/03/17 13:43 [facility] Bedside Video EEG Monitoring Patient: Amanda Kinney - [id number] Date: 04 Nov 2017 Requested by: Ramesh [...] 11/04/17 Last Resulted: 11/05/17 11:02 Received From: [facility] Result Received: 04/11/23 22:23 CBC: No [...] TSH VITAMIN B12: No results found for: [id number] FERRITIN: No results found for: FERRITIN ---- No results found for: PHENYTOIN, PHENOBARB, VALPROATE, CBMZ No components found for: TOPIRANo results found for: OXCARBAZE, OXCARB @LASTAPPOINTMENTTHISPROV@ No image results found. @RESULTINGLABINFO@ No results found for: LEVETIRACETA, FERRITIN, CRP, RIANA, ANCA No results found for: GERARD, IMMUNOGLOBUL, OLIGOBANDS No results found for: SGD30RT, HEPCAB No results found for: CRP, ANATITER, [...] arranging for studies. documented in this encounter [facility] 04-03-2023 Miscellaneous Notes Records and images request faxed to [facility] / [phone] Records scanned in from referring office. documented in this encounter [facility] 03-30-2023 Miscellaneous Notes Spoke with , device is MRI compatible. Pt does follow routinely in [place] per . She will have the facility doing the MRI to contact that clinic for the most updated device information as [facility] device clinic has not seen the patient since 2020. documented in this encounter [facility] 03-23-2023 Miscellaneous Notes Received referral fax for patient, scanned into epic. Pt needs referred to Filemon Adams at [facility] per Dr. Randhawa. Referral and physician info given to PSS for scheduling. Lorna Nath RN documented in this encounter [facility] 10-04-2022 Note HNO ID: [id number] Author: Sonu Riojas MD Service: ? Author Type: Physician Type: Progress Notes Filed: 10/04/2022 10:03 AM Note Text: pulm rehab [place] 10-04-2022 Note HNO ID: [id number] Author: Montserrat De León Fowl Blood Tester Service: ? Author Type: Fowl Blood Tester Type: Progress Notes Filed: 10/04/2022 9:12 AM Note Text: Order for pulmonary rehabilitation faxed to [place] [facility] on 10/04/22 Montserrat De León MS, [facility] 10-04-2022 History of Present illness Narrative pulm rehab documented in this encounter [facility] 10-04-2022 History of Present illness Narrative Order for pulmonary rehabilitation faxed to [place] [facility] on 10/04/22 Montserrat De León MS, [facility] documented in this encounter [facility] 09-27-2022 History of Present illness Narrative [...] 2018 Heart disease High cholesterol HTN (hypertension) [place], old 2013 no surgery, no stents PAST [...] Sonu Riojas MD documented in this encounter [facility] 09-27-2022 History of Present illness Narrative PULM FUNCTION SMARTBLOCK: Provider: Sonu Riojas MD Spirometry: 1 6 MW: 1 System: MC6 - [id number] documented in this encounter [facility] 09-27-2022 Procedure note Associated Ord er(s): [...] TIME: 1:00 PM documented in this encounter [facility] 09-27-2022 History of Present illness Narrative [facility] Speech Pathology Consult Modified Barium Swallow [...] Dr. Rollins as needed Stephanie Barnhart M.S., CCC-ART DISPLAY MAKER Clinical Speech Pathologist Pager: [phone] Voicemail: [phone] DIAGNOSIS / HISTORY: Amanda Kinney is a [...] 2018 Heart disease High cholesterol HTN (hypertension) [place], old 2013 no surgery, no stents PAST [...] / Barium mixture Pudding mixed with Barium [place] thick Barium liquid Thin Barium liquid LIQUIDS [...] Treatment Plan Date: 09/27/2022 Stephanie Barnhart M.S., CCC-ART DISPLAY MAKER Clinical Speech Pathologist Pager: [phone] Voicemail: [phone] documented in this encounter [facility] 09-27-2022 History of Present illness Narrative [...] 2022 9:23 AM documented in this encounter [facility] 09-23-2022 History of Present illness Narrative IP Clinical Coordinator Pre-Visit Chart Review Date of Visit: 09/27/22 Type of Visit: Est Summary of Reason for Visit: Follow Up Needed Testing Prior to Visit: PFTs and barium swallow scheduled scheduled prior to visit; same day Notes: Vita [place] MSN, RN, CCRN-K Interventional Pulmonary Clinical Coordinator documented in this encounter [facility] 07-27-2022 Nurse Note Tobacco Use: Quit 05/03/2007. Types: Cigarettes Was smoking cessation packet given? N/A - Patient is a non-smoker or quit >1 year ago. Was a referral initiated?N/A Patient is a non-smoker documented in this encounter [facility] 07-27-2022 History of Present illness Narrative [...] 2017 Heart disease High cholesterol HTN (hypertension) [place], old 2013 no surgery, no stents PAST [...] Nirmal. I discussed the management of Amanda iKnney with the resident. I reviewed the note [...] 4 - Moderate documented in this encounter [facility] 04-26-2022 History of Present illness Narrative Images from the original note were not included. Interventional Pulmonary Retail Salesworker Note OV Date: 05/10/22 Date of last visit: 03/15/22 RECOMMENDATION/PLAN FROM LAST VISIT Vita [place] MSN, RN, CCRN-K Interventional Pulmonary Clinical Coordinator documented in this encounter [facility] 03-22-2022 History of Present illness Narrative [...] this note on to the consulting physician Retail Salesworker Follow up >FU OV set for 05/10/22 >Consult request to [place] and noted Vita Park MSN, RN, CCRN-K Interventional Pulmonary Clinical Coordinator documented in this encounter [facility] 03-15-2022 Miscellaneous Notes Spoke to patient and spouse, scheduled a established patient visit for 05/10/22 documented in this encounter [facility] 03-15-2022 History of Present illness Narrative [...] 2018 Heart disease High cholesterol HTN (hypertension) [place], old 2013 no surgery, no stents PAST [...] Sonu Riojas MD documented in this encounter [facility] 03-11-2022 History of Present illness Narrative Interventional Pulmonary Retail Salesworker Note OV Date: 03/15/22 Date of last [...] Pulmonary Clinical Coordinator documented in this encounter [facility] 02-18-2022 Miscellaneous Notes Images from the original note were not included. 02/18/22- Received and scanned in outside medical records documented in this encounter [facility] 02-09-2021 Note HNO ID: [id number] Author: Brenda Nath MD, PhD Service: ? [...] was 25 minutes. Brenda Nath MD, PhD [facility] 02-09-2021 Note HNO ID: [id number] Author: Brenda Nath MD, PhD Service: ? Author Type: Physician Type: Progress Notes Filed: 02/09/2021 4:54 PM Note Text: See dictation [facility] 02-09-2021 Note HNO ID: [id number] Author: Brenda Nath MD, PhD Service: Thoracic Surgery Author Type: Physician Type: Progress Notes Filed: 02/18/2021 12:29 PM Note Text: [facility] Progress Note AMANDA KINNEY [facility]#: [id number] PATIENT TYPE: [facility] LOCATION: [facility] ORIGINATOR: Brenda Nath M.D. DATE OF [...] from them to proceed to tracheal resection. [facility] DOC: [id number] This note was partially generated using an outside customer logistics manager service, and there may be some incorrect words, spellings, phrases, and punctuation that were not noted in checking the note before saving. [facility] documented as of this encounter (statuses as of 02/18/2022) [facility] History of Past illness Narrative* Problem [...] of this encounter (statuses as of 03/11/2022) [facility] Narrative* Problem [...] of this encounter (statuses as of 03/15/2022) [facility] Narrative* Problem [...] of this encounter (statuses as of 03/15/2022) [facility] Narrative* Problem [...] of this encounter (statuses as of 03/22/2022) [facility] Narrative* Problem [...] of this encounter (statuses as of 04/26/2022) [facility] Narrative* Problem [...] of this encounter (statuses as of 07/27/2022) [facility] Narrative* Problem [...] of this encounter (statuses as of 08/16/2022) [facility] Narrative* Problem [...] of this encounter (statuses as of 09/28/2022) [facility] Narrative* Problem [...] of this encounter (statuses as of 09/29/2022) [facility] Narrative* Problem [...] of this encounter (statuses as of 09/29/2022) [facility] Narrative* Problem [...] of this encounter (statuses as of 09/29/2022) [facility] Narrative* Problem [...] of this encounter (statuses as of 09/29/2022) [facility] Narrative* Problem [...] of this encounter (statuses as of 10/04/2022) [facility] Narrative* Problem [...] of this encounter (statuses as of 10/04/2022) [facility] Narrative* Problem [...] of this encounter (statuses as of 10/17/2022) [facility] Narrative* Problem [...] of this encounter (statuses as of 03/23/2023) [facility] Narrative* Problem [...] of this encounter (statuses as of 03/30/2023) [facility] Narrative* Problem [...] of this encounter (statuses as of 04/03/2023) [facility] Narrative* Problem [...] of this encounter (statuses as of 04/21/2023) [facility] Narrative* Problem [...] of this encounter (statuses as of 08/30/2023) [facility] Narrative* Problem [...] of this encounter (statuses as of 09/01/2023) [facility] History of Present illness Narrative* Mr Kinney had open heart surgery in Sep 2017. He initially did well and on the day of discharge had VT VF arrest. This was then followed by long course that included cardiac ablation, MV, tracheostomy. He was in [facility] and then SNF for several months. [...] breath, unable to bend over and breath, IW-Slu[address] Work Phone: Chief complaint Narrative - ReportedPatient came in today accompanied by his for diaphragm evaluation. Shortness of breath JQ[address] Work Phone: Evaluation note* Diagnosis Tracheal [...] Shortness of breath documented in this encounter [facility] note* Diagnosis Oropharyngeal dysphagia- Primary Dysphagia, oropharyngeal phase H/O: stroke Transient ischemic attack (TIA), and cerebral infarction without residual deficits Tracheal stenosis Other diseases of trachea and bronchus documented in this encounter [facility] note* Diagnosis Tracheal stenosis- Primary Other diseases of trachea and bronchus documented in this encounter [facility] note* Diagnosis Tracheal stenosis- Primary Other diseases of trachea and bronchus ALEXANDER (dyspnea on exertion) Other dyspnea and respiratory abnormality documented in this encounter [facility] note* Diagnosis Odynophagia Dysphagia, unspecified documented in this encounter [facility] note* Diagnosis Disease of lung- Primary Other diseases of lung, not elsewhere classified documented in this encounter [facility] note* Diagnosis Chronic obstructive pulmonary disease, unspecified COPD type (HCC)- Primary documented in this encounter [facility] note* Diagnosis Syncope and collapse- Primary Cough syncope Cough Other drug-induced secondary parkinsonism (HCC) documented in this encounter [facility] note* Diagnosis Syncope and collapse documented in this encounter [facility] note* Diagnosis Primary neuroendocrine tumor of pancreas- Primary documented in this encounter [facility] note* Diagnosis Syncope and collapse- Primary Parkinsonism, unspecified Parkinsonism type Cerebrovascular accident (CVA), unspecified mechanism (HCC) documented in this encounter [facility] note* Diagnosis Chronic pancreatitis, unspecified pancreatitis type (HCC)- Primary documented in this encounter [facility] note* Diagnosis Primary neuroendocrine tumor of pancreas documented in this encounter [facility] note* Diagnosis Cerebrovascular accident (CVA), unspecified mechanism (HCC)- Primary Gait disturbance Abnormality of gait Visual field loss following cerebrovascular accident documented in this encounter [facility] for referral (narrative)* Diagnostic Procedure Only (Routine) - Closed Specialty Diagnoses / Procedures Referred By Daisy dozier Referred To Contact XR IMAGING Diagnoses Odynophagia Procedures XR MODIFIED BARIUM SWALLOW W SPEECH THERAPY RADIOLOGIC EXAM SWALLOW FUNCTION CONTRAST STUDY [address] [place] [address] Xr Imaging Referral ID Status Reason Start Date Expiration Date V isits Requested Visits Authorized [id number] Closed Auto-Generate d Referral 07/27/2022 08/26/2023 1 1 [facility] for referral (narrative)* Consultation (Routine) - Pending Review Specialty Diagnoses / Procedures Referred By Contac t Referred To Contact Optometry Diagnoses Visual field loss following cerebrovascular accident Procedures SD OFFICE/OUTPATIENT NEW HIGH MDM 60 MINUTES Steff Muhammad MD [address] [place] [address] Eloy Morin, OD [address] [place] [address] Referral ID Status Reason Start Date Expiration Date Visits Requested Visits Authorized [id number] Pending Review Specialty Services Required 09/28/2023 09/27/2024 1 1 [facility] Purpose Family History Cerebrovascular Accident [...] Documents on File Type Date Recorded Patient Optical Goods Drill Operator Expl anation Advance Directive(s) 06/14/2021 1:48 PM Advance Directive(s) 04/13/2021 12:51 PM Advance Directive(s) 10/08/2017 3:33 PM Advance Directive(s) 03/23/2016 7:12 AM Advance Directive(s) 03/16/2016 12:30 PM Reason for Referral Specialty Diagnoses / Procedures Referred By Contac t Referred To Contact Neurology Diagnoses Cerebrovascular accident (CVA), unspecified mechanism (HCC) Procedures CONSULT TO NEUROLOGY OFFICE/OUTPATIENT [facility] 60-74 MINUT[address] [place] [address] Referral ID Status Reason Start Date Expiration Date Visits Requested Visits Authorized [id number] Authorized PCP Requested Referral 07/27/2022 07/27/2023 1 1 Specialty Diagnoses / Procedures Referred By Contac t Referred To Contact XR IMAGING Diagnoses Odynophagia Procedures XR MODIFIED BARIUM SWALLOW W SPEECH THERAPY RADIOLOGIC EXAM SWALLOW FUNCTION CONTRAST STUDY [address] [place] [address] Xr Imaging Referral ID Status Reason Start Date Expiration Date Visits Requested Visits Authorized [id number] Pending Review Auto-Generat ed Referral 07/27/2022 08/26/2023 1 1 Specialty Diagnoses / Procedures Referred By Contac t Referred To Contact Radiology Diagnoses Syncope and collapse Procedures MR brain wo contrast Steff Muhammad MD [address] [place] [address] Referral ID Status Reason Start Date Expiration Date V isits Requested Visits Authorized [id number] Pending Review 04/12/2023 10/09/2023 1 1 Specialty Diagnoses / Procedures Referred By Contac t Referred To Contact Diagnoses Syncope and collapse Procedures EEG extended more than 1 hour Steff Muhammad MD [address] [place] [address] Referral ID Status Reason Start Date Expiration Date V isits Requested Visits Authorized [id number] Incomplete 04/12/2023 10/09/2023 1 1 Specialty Diagnoses / Procedures Referred By Contac t Referred To Contact Neurology Diagnoses Syncope and collapse Procedures EEG extended more than 1 hour Steff Muhammad MD [address] [place] [id number] Referral ID Status Reason Start Date Expiration Date Visits Re quested Visits Authorized [id number] Closed 04/12/2023 10/09/2023 1 1 Specialty Diagnoses / Procedures Referred By Contac t Referred To Contact CT IMAGING Diagnoses Primary neuroendocrine tumor of pancreas Procedures CT PANCREAS W IVCON CT ABDOMEN W/CONTRAST Amanda Adams MD [address] [place] [address] Ct Imaging Referral ID Status Reason Start Date Expiration Date Visits Requested Visits Authorized [id number] Pending Review Auto-Generat ed Referral 04/21/2023 05/20/2024 1 1 Specialty Diagnoses / Procedures Referred By Contac t Referred To Contact CT IMAGING Diagnoses Primary neuroendocrine tumor of pancreas Procedures CT PANCREAS W IVCON CT ABDOMEN W/CONTRAST Amanda Adams MD [address] [place] [address] Ct Imaging [place] [address] Referral ID Status Reason Start Date Expiration Date V isits Requested Visits Authorized [id number] Closed Auto-Generate d Referral 04/21/2023 05/20/2024 1 [...] DATE CREATED AUTHOR AUTHOR'S ORGANIZ ATION 05/15/2018 [facility] DATE CREATED AUTHOR AUTHOR'S ORGANIZ ATION 02/21/2021 [facility] DATE CREATED AUTHOR AUTHOR'S ORGANIZ ATION 03/15/2022 [employer] DATE CREATED AUTHOR AUTHOR'S ORGANIZ ATION 04/25/2022 [facility] DATE CREATED AUTHOR AUTHOR'S ORGANIZ ATION 11/29/2022 [facility] DATE CREATED AUTHOR AUTHOR'S ORGANIZ ATION 08/05/2023 [facility] DATE CREATED AUTHOR AUTHOR'S ORGANIZ ATION 09/17/2023 [facility] ([place]) DATE CREATED AUTHOR AUTHOR'S ORGANIZ ATION 09/26/2023 [facility] DATE CREATED AUTHOR AUTHOR'S ORGANIZ ATION 09/30/2023 [place] DATE CREATED AUTHOR AUTHOR'S ORGANIZ ATION 09/30/2023 [facility] Source Comments (unrecognize d section and content) In the event this informatio n is protected by the Federal Confidentiality of Alcohol and Drug Abuse Patient Records regulations: The Federal rules restrict any use of the information to criminally investigate or prosecute any alcohol or drug abuse patient.[facility] the event this information is protected by the Federal Confidentiality of Alcohol and Drug Abuse Patient Records regulations: The Federal rules restrict any use of the information to criminally investigate or prosecute any alcohol or drug abuse patient.[facility] Hospital[facility] the event this information is protected by the Federal Confidentiality of Alcohol and Drug Abuse Patient Records regulations: The Federal rules restrict any use of the information to criminally investigate or prosecute any alcohol or drug abuse patient.[facility] HospitalIn the event this information is protected by the Federal Confidentiality of Alcohol and Drug Abuse Patient Records regulations: The Federal rules restrict any use of the information to criminally investigate or prosecute any alcohol or drug abuse patient.[facility] HospitalIn the event this information is protected by the Federal Confidentiality of Alcohol and Drug Abuse Patient Records regulations: The Federal rules restrict any use of the information to criminally investigate or prosecute any alcohol or drug abuse patient.[facility] HospitalIn the event this information is protected by the Federal Confidentiality of Alcohol and Drug Abuse Patient Records regulations: The Federal rules restrict any use of the information to criminally investigate or prosecute any alcohol or drug abuse patient.[facility] HospitalIn the event this information is protected by the Federal Confidentiality of Alcohol and Drug Abuse Patient Records regulations: The Federal rules restrict any use of the information to criminally investigate or prosecute any alcohol or drug abuse patient.[facility] HospitalIn the event this information is protected by the Federal Confidentiality of Alcohol and Drug Abuse Patient Records regulations: The Federal rules restrict any use of the information to criminally investigate or prosecute any alcohol or drug abuse patient.[facility] HospitalIn the event this information is protected by the Federal Confidentiality of Alcohol and Drug Abuse Patient Records regulations: The Federal rules restrict any use of the information to criminally investigate or prosecute any alcohol or drug abuse patient.[facility] HospitalIn the event this information is protected by the Federal Confidentiality of Alcohol and Drug Abuse Patient Records regulations: The Federal rules restrict any use of the information to criminally investigate or prosecute any alcohol or drug abuse patient.[facility] HospitalIn the event this information is protected by the Federal Confidentiality of Alcohol and Drug Abuse Patient Records regulations: The Federal rules restrict any use of the information to criminally investigate or prosecute any alcohol or drug abuse patient.[facility] HospitalIn the event this information is protected by the Federal Confidentiality of Alcohol and Drug Abuse Patient Records regulations: The Federal rules restrict any use of the information to criminally investigate or prosecute any alcohol or drug abuse patient.[facility] HospitalIn the event this information is protected by the Federal Confidentiality of Alcohol and Drug Abuse Patient Records regulations: The Federal rules restrict any use of the information to criminally investigate or prosecute any alcohol or drug abuse patient.[facility] HospitalIn the event this information is protected by the Federal Confidentiality of Alcohol and Drug Abuse Patient Records regulations: The Federal rules restrict any use of the information to criminally investigate or prosecute any alcohol or drug abuse patient.[facility] HospitalIn the event this information is protected by the Federal Confidentiality of Alcohol and Drug Abuse Patient Records regulations: The Federal rules restrict any use of the information to criminally investigate or prosecute any alcohol or drug abuse patient.[facility] HospitalIn the event this information is protected by the Federal Confidentiality of Alcohol and Drug Abuse Patient Records regulations: The Federal rules restrict any use of the information to criminally investigate or prosecute any alcohol or drug abuse patient.[facility] HospitalIn the event this information is protected by the Federal Confidentiality of Alcohol and Drug Abuse Patient Records regulations: The Federal rules restrict any use of the information to criminally investigate or prosecute any alcohol or drug abuse patient.[facility] HospitalIn the event this information is protected by the Federal Confidentiality of Alcohol and Drug Abuse Patient Records regulations: The Federal rules restrict any use of the information to criminally investigate or prosecute any alcohol or drug abuse patient.[facility] HospitalIn the event this information is protected by the Federal Confidentiality of Alcohol and Drug Abuse Patient Records regulations: The Federal rules restrict any use of the information to criminally investigate or prosecute any alcohol or drug abuse patient.[facility] HospitalIn the event this information is protected by the Federal Confidentiality of Alcohol and Drug Abuse Patient Records regulations: The Federal rules restrict any use of the information to criminally investigate or prosecute any alcohol or drug abuse patient.[facility] HospitalIn the event this information is protected by the Federal Confidentiality of Alcohol and Drug Abuse Patient Records regulations: The Federal rules restrict any use of the information to criminally investigate or prosecute any alcohol or drug abuse patient.[facility] HospitalIn the event this information is protected by the Federal Confidentiality of Alcohol and Drug Abuse Patient Records regulations: The Federal rules restrict any use of the information to criminally investigate or prosecute any alcohol or drug abuse patient.[facility] HospitalIn the event this information is protected by the Federal Confidentiality of Alcohol and Drug Abuse Patient Records regulations: The Federal rules restrict any use of the information to criminally investigate or prosecute any alcohol or drug abuse patient.[facility] HospitalIn the event this information is protected by the Federal Confidentiality of Alcohol and Drug Abuse Patient Records regulations: The Federal rules restrict any use of the information to criminally investigate or prosecute any alcohol or drug abuse patient.[facility] Reason for Visit (unrecogniz ed section [...] SWALLOW FUNCTION CONTRAST STUDY [address] [place] [address] Xr Imaging Referral ID Status Reason Start Date Expiration Date V isits Requested Visits Authorized [id number] Closed Auto-Generate d Referral 07/27/2022 08/26/2023 1 1 Reason Comments Spirometry Specialty Diagnoses / Procedures Referred By Contac t Referred To Contact [facility] Diagnoses Tracheal stenosis Procedures SIX MINUTE WALK CARDIOPULMONARY EXERCISE STRESS Sonu Riojas MD [address] [place] [address] Respiratory [place] [address] [place] [address] Referral ID Status Reason Start Date Expiration Date V isits Requested Visits Authorized [id number] Closed Auto-Generate d Referral 08/16/2022 09/15/2023 1 1 Specialty Diagnoses / Procedures Referred By Contac t Referred To Contact [facility] Diagnoses Tracheal stenosis Procedures SPIROMETRY WITH DILATOR IF OBSTRUCTED BRNCDILAT RSPSE SPMTRY PRE&POST-BRNCDILAT ADMN Sonu Riojas MD [address] [place] [address] [address] Referral ID Status Reason Start Date Expiration Date V isits Requested Visits Authorized [id number] Closed Auto-Generate d Referral 08/16/2022 09/15/2023 1 1 Reason Comments Radio GI Main HB6 Specialty Diagnoses / Procedures Referred By Contac t Referred To Contact XR IMAGING Diagnoses Odynophagia Procedures XR MODIFIED BARIUM SWALLOW W SPEECH THERAPY RADIOLOGIC EXAM SWALLOW FUNCTION CONTRAST STUDY [facility] [address] [address] Xr Imaging Reason Comments Pulm Rehab Reason Comments Appointment Reason Comments Patient Question Patient called and wants to know, if device is MRI compatible. Please call her at [phone] Reason Comments Clinic Prep Reason Comments New Patient Syncope Specialty Diagnoses / Procedures Referred By Contac t Referred To Contact Neurology Diagnoses Syncope and collapse Cerebral infarction, unspecified (HCC) Orthostatic hypotension Procedures SD OFFICE/OUTPATIENT NEW MODERATE MDM 45-59 MINUTES Mark Johnson MD [address] [place] [address] [facility] [address] [place] [address] Referral ID Status Reason Start Date Expiration Date V isits Requested Visits Authorized [id number] Pending Review 03/24/2023 03/24/2024 1 1 Specialty Diagnoses / Procedures Referred By Contac t Referred To Contact Neurology Diagnoses Syncope and collapse Procedures EEG extended more than 1 hour Steff Muhammad MD [address] [place] [address] Referral ID Status Reason Start Date Expiration Date Visits Re quested Visits Authorized [id number] Closed 04/12/2023 10/09/2023 1 1 Reason Comments Consult Reason Comments Follow-up Loss of Consciousness Results Reason Comments Lab Orders Reason Comments Radiology CT Specialty Diagnoses / Procedures Referred By Contac t Referred To Contact CT IMAGING Diagnoses Primary neuroendocrine tumor of pancreas Procedures CT PANCREAS W IVCON CT ABDOMEN W/CONTRAST Amanda Adams MD [address] [place] [address] Ct Imaging [place] [address] Referral ID Status Reason Start Date Expiration Date V isits Requested Visits Authorized [id number] Closed Auto-Generate d Referral 04/21/2023 05/20/2024 1 1 Reason Comments Follow-up Loss of Consciousness Stroke Care Teams (unrecognized sec tion and content) Frame Assembler Relationship Specialty Start Date End Date Kaylin Hui [address] [place] [address] PCP - General Family Practice 04/13/21 Trey Richey [address] [place] [address] Cardiology 05/14/18 Amanda Clark V [address] [place] [address] Referring Internal Medicine 06/26/20 Frame Assembler Relationship Specialty Start Date End Date Kaylin Hui [address] [place] [id number] PCP - General Family Practice 04/13/21 Trey Richey [address] [place] [address] Cardiology 05/14/18 Amanda Clark, Jian [address] [place] [place] [address] Referring Internal Medicine 06/26/20 Frame Assembler Relationship Specialty Start Date End Date Kaylin Hui [address] [place] [address] PCP - General Family Practice 04/13/21 Trey Richey [address] [place] [address] Cardiology 05/14/18 Amanda Clark V [address] [place] [place] [address] Referring Internal Medicine 06/26/20 Frame Assembler Relationship Specialty Start Date End Date Kaylin Hui [address] [place] [address] PCP - General Family Medicine 04/13/21 Trey Richey [address] [place] [address] Cardiology 05/14/18 Amanda Clark V [address] [place] [place] [address] Referring Internal Medicine 06/26/20 Frame Assembler Relationship Specialty Start Date End Date Kaylin Hui [address] [place] [address] PCP - General Family Medicine 04/13/21 Trey Richey [address] [place] [address] Cardiology 05/14/18 Amanda Clark V [address] [place] [address] Referring Internal Medicine 06/26/20 Frame Assembler Relationship Specialty Start Date End Date Kaylin Hui [address] [place] [address] PCP - General Family Medicine 04/13/21 Trey Richey [address] [place] [address] Cardiology 05/14/18 Amanda Clark V [address] [place] [address] Referring Internal Medicine 06/26/20 Frame Assembler Relationship Specialty Start Date End Date Kaylin [place] [place] [address] PCP - General Family Medicine 04/13/21 Trey Richey [address] [place] [address] Cardiology 05/14/18 Amanda Clark V [address] [place] [address] Referring Internal Medicine 06/26/20 Frame Assembler Relationship Specialty Start Date End Date Kaylin Hui [address] [place] [address] PCP - General Family Medicine 04/13/21 Trey Richey [address] [place] [address] Cardiology 05/14/18 Amanda Clark V [address] [place] [place] [address] Referring Internal Medicine 06/26/20 Frame Assembler Relationship Specialty Start Date End Date Kaylin Hui [address] [place], [place] [id number] PCP - General Family Medicine 04/13/[address] [place] [address] Cardiology 05/14/18 Amanda Clark V [address] [place] [place] [address] Referring Internal Medicine 06/26/20 Frame Assembler Relationship Specialty Start Date End Date Kaylin Hui [address] [place] [address] PCP - General Family Medicine 04/13/21 Trey Richey [address] [place] [address] Cardiology 05/14/18 Amanda Clark V [address] [place] [address] Referring Internal Medicine 06/26/20 Frame Assembler Relationship Specialty Start Date End Date Kaylni Hui [address] [place] [address] PCP - General Family Medicine 04/13/21 Trey Richey [address] [place] [address] Cardiology 05/14/18 Amanda Clark V [address] [place] [place] [address] Referring Internal Medicine 06/26/20 Frame Assembler Relationship Specialty Start Date End Date Kaylin Hui PA-C [address] [place] [id number] PCP - General Physician Revolving Inventory Clerk 03/24/23 Frame Assembler Relationship Specialty Start Date End Date Kaylin Hui PA-C [address] [place] [id number] PCP - General Physician Revolving Inventory Clerk 03/24/23 Frame Assembler Relationship Specialty Start Date End Date Kaylin Hui [address] [place], [place] [id number] PCP - General Family Medicine 04/13/21 Trey Richey [address] [place] [address] Cardiology 05/14/18 Eduardo AmandaJian [address] [place] [address] Referring Internal Medicine 06/26/20 Frame Assembler Relationship Specialty Start Date End Date Kaylin Hui PA-C [address] [place] [id number] PCP - General Physician Revolving Inventory Clerk 03/24/23 Frame Assembler Relationship Specialty Start Date End Date Kaylin Hui [address] [place] [id number] PCP - General Family Medicine 04/13/21 Trey Richey MD [address] [place], [place] [id number] Cardiology 05/14/18 Amanda Clark V [address] [place] [address] Referring Internal Medicine 06/26/20 Frame Assembler Relationship Specialty Start Date End Date Kaylin Hui [address] [place], [place] [id number] PCP - General Family Medicine 04/13/21 Trey Richey MD [address] [place], [place] [id number] Cardiology 05/14/18 Amanda Clark V [address] [place] [address] Referring Internal Medicine 06/26/20 Frame Assembler Relationship Specialty Start Date End Date Kaylin Hui PA-C [address] [place] [address] PCP - General Physician Revolving Inventory Clerk 03/24/23 <item> Privacy Markings (unrecogniz ed section [...] BE BASED ON THE PRIMARY CLINICAL RECORDS. [employer] [facility]. provides no warranty or guarantee of the accuracy or completeness of information in this document.
--- OUTSIDE RECORDS SUMMARY | 2023-11-24 02:54 | XMS RPT_ITS | CCD ---
Author Name Unknown Address [id number] [place] [address] Organization [facility] Care Team Providers Care Applicator Sprayer Name Role Phone Unavailable Unavailable Unavailable Tavallaee, [...] Care Unavailable STEVETTLE RAMESH Attending Unavailable HUI, AKYLIN J Consulting Unavailable PROVIDER, UNKNOWN Consulting Unavailable [...] Kaylin J Unavailable [facility] Unavailable [phone] Center, [facility] Unavailable [facility] Unavailable Dr. Justen Meza MD Unavailable Urologist [...] Licea Unavailable [facility] Unavailable Raymundo COMPUTER METHODS ANALYST, Nikkie Unavailable Nestor PARRA, Breanna Jaime Unavailable Fransico BARRIOS, Ronald Loomis Unavailable Bienvenido COMPUTER METHODS ANALYST, Edna Fermin Unavailable Unavailable Gogoi (scribe), Hemanta Unavailable Unavaila ble Lg COMPUTER METHODS ANALYST, Diane Unavailable Unavailable Deejay BARRIOS, Amanda Tavera Unavailable Jarrell ZAMBRANO, Alexa Unavailable Unavailable Miranda COMPUTER METHODS ANALYST, Nida Unavailable Unavaila ble Fredrick COMPUTER METHODS ANALYST, Lucia Unavailable Unavailable Stew GODOY, Gaby Tavera Unavailable Unavaila ble Marthey COMPUTER METHODS ANALYST, Yolis Unavailable Unavailable Mutersbaugh COMPUTER METHODS ANALYST, Cindy K Unavailable Unavai zoltan Nayak (Scribe), Alo Unavailable Unavailab le Castillo COMPUTER METHODS ANALYST, Montserrat M Unavailable Unavailab le Amy COMPUTER METHODS ANALYST, Gris Gonzalez Unavailable Unavailab shimon Nielson MA, Lucia Unavailable Unavailable Vess COMPUTER METHODS ANALYST, Neilee L Unavailable Unavailable Wengerd COMPUTER METHODS ANALYST, Krissy Unavailable Unavailabl e Jaky COMPUTER METHODS ANALYST, Rox N Unavailable Unavaila ble Zaugg COMPUTER METHODS ANALYST, Judy Unavailable Unavailable Unavailable Unavailable AMANDA ADAMS [...] MUHAMMAD Attending Unavailable ROMAN, MARK Referring Unavailable BICKNELL, KAYLIN Primary Care Unavailable STEFF MUHAMMAD Attending Unavailable STEFF [place]AD Referring Unavailable BICKNELL, KAYLIN Primary Care Unavailable STEFF MU[place]AD Attending Unavailable [facility] Primary Care Unavailable Allergies Allergy Classification Reported Allergen(s) Allergy Type Date of Onset Reaction(s) Facility (20 sources) Lisinopril; Translations: [lisinopril] Drug Allergy 1 Cough [facility] (6 sources) Lisinopril Allergy to substance 9 Cough, Unknown [facility] NEGATED: Highlighted row has been ruled out! (1 source) 2 [employer] NEGATED: Highlighted row has been ruled out! (1 source) [employer] NEGATED: Highlighted row has been ruled out! (1 source) 2 [employer] NEGATED: Highlighted row has been ruled out! (1 source) [employer] NEGATED: Highlighted row has been ruled out! (1 source) 2 [employer] NEGATED: Highlighted row has been ruled out! (1 source) [employer] NEGATED: Highlighted row has been ruled out! (1 source) 2 [employer] [facility] NEGATED: Highlighted row has been ruled out! (1 source) [employer] [facility] [employer] NEGATED: Highlighted row has been ruled out! (1 source) 2 [employer] NEGATED: Highlighted row has been ruled out! (1 source) [employer] [facility] NEGATED: Highlighted row has been ruled out! (1 source) 2 [employer].; [facility] [employer] NEGATED: Highlighted row has been ruled out! (1 source) [employer]. NEGATED: Highlighted row has been ruled out! (1 source) [employer] NEGATED: Highlighted row has been ruled out! (1 source) [employer]. Medications Current Medications Medication Drug Class(es) Dates [...] 29.65 kg/m2 Steff Muhammad MD Work Phone: [employer] 09-28-2023 13:40-0500 Body weight 88.45 kg Steff Muhammad MD Work Phone: [employer] 09-28-2023 13:40-0500 Diastolic blood pressure 68 mm[Hg] Steff Muhammad MD Work Phone: [employer] 09-28-2023 13:40-0500 Heart rate 66 /min Steff Muhammad MD Work Phone: [employer] 09-28-2023 13:40-0500 Systolic blood pressure 112 mm[Hg] Steff Muhammad MD Work Phone: [employer] 09-12-2023 10:32-0500 Body height 177.8 cm Alexa Vieyra MA [employer]. 09-12-2023 10:32-0500 Body mass index (BMI) [Ratio] 27.9 kg/m2 Alexa Vieyra MA [employer], [employer] 09-12-2023 10:32-0500 Body surface area Derived from formula 2.06 m2 Alexa Vieyra MA [employer]. 09-12-2023 10:32-0500 Body weight 88.2 kg Alexa Vieyra MA [employer].; [employer]. 09-12-2023 10:32-0500 Diastolic blood pressure 84 mm[Hg] Alexa Vieyra MA [employer], [employer] 09-12-2023 10:32-0500 Heart rate 66 /min Alexa Vieyra MA [employer].; [employer]. 09-12-2023 10:32-0500 Inhaled oxygen concentration 20 % Alexa Vieyra MA [facility].; [facility]. 09-12-2023 10:32-0500 SaO2% (BldA) [Mass fraction] 92 % Alexa Vieyra MA [facility], [facility].; [facility] 09-12-2023 10:32-0500 Systolic blood pressure 172 mm[Hg] Alexa Vieyra MA [facility], [facility].; [facility]. 08-03-2023 13:51-0500 Body height 177.8 cm [facility].; [facility], [facility]. 08-03-2023 13:51-0500 Body mass index (BMI) [Ratio] 28.44 kg/m2 [facility].; [facility], [facility]. 08-03-2023 13:51-0500 Body surface area Derived from formula 2.08 m2 [facility].; [facility], [facility]. 08-03-2023 13:51-0500 Body weight 89.9 kg [facility].; [facility], [facility]. 08-03-2023 13:51-0500 Diastolic blood pressure 75 mm[Hg] [facility].; [facility], [facility]. 08-03-2023 13:51-0500 Heart rate 53 /min [facility].; [facility], [facility]. 08-03-2023 13:51-0500 Inhaled oxygen concentration 20 % [facility].; [facility], [facility]. 08-03-2023 13:51-0500 SaO2% (BldA) [Mass fraction] 95 % [facility], [facility].; [facility], [facility]. 08-03-2023 13:51-0500 Systolic blood pressure 120 mm[Hg] [facility], [facility].; [facility], [facility]. 04-21-2023 08:36-0400 Body height 172.7 cm Amanda Adams MD Work Phone: [facility] 04-21-2023 08:36-0400 Body temperature 97.9 [degF] Amanda Adams MD Work Phone: [facility] 04-21-2023 08:36-0400 Body weight 95.25 kg Amanda Adams MD Work Phone: [facility] 04-21-2023 08:36-0400 Diastolic blood pressure 76 mm[Hg] Amanda Adams MD Work Phone: [facility] 04-21-2023 08:36-0400 Heart rate 8 /min Amanda Adams MD Work Phone: [facility] 04-21-2023 08:36-0400 Systolic blood pressure 157 mm[Hg] Amanda Adams MD Work Phone: [facility] 04-12-2023 12:52-0400 Body height 172.7 cm Steff Muhammad MD Work Phone: [facility] 04-12-2023 12:52-0400 Body mass index (BMI) [Ratio] 31.32 kg/m2 Steff Muhammad MD Work Phone: [facility] 04-12-2023 12:52-0400 Body weight 93.44 kg Steff Muhammad MD Work Phone: [facility] 04-12-2023 12:52-0400 Diastolic blood pressure 80 mm[Hg] Steff Muhammad MD Work Phone: [facility] 04-12-2023 12:52-0400 Heart rate 70 /min Steff Muhammad MD Work Phone: [facility] 04-12-2023 12:52-0400 Systolic blood pressure 141 mm[Hg] Steff Muhammad MD Work Phone: [facility] 03-03-2023 10:16-0400 Body height 177.8 cm Montserrat Chong LPN [facility], [facility].; [facility], [facility]. 03-03-2023 10:16-0400 Body mass index (BMI) [Ratio] 30.28 kg/m2 Montserrat Chatmanlabach COMPUTER METHODS ANALYST [facility].; [facility]. 03-03-2023 10:16-0400 Body surface area Derived from formula 2.14 m2 Montserrat Chatmanlabach [facility].; [facility]. 03-03-2023 10:160400 Body weight 95.71 kg Montserrat Licea Castillo [facility].; [facility]. 03-03-2023 10:160400 Diastolic blood pressure 72 mm[Hg] [facility]. 03-03-2023 10:160400 Heart rate 69 /min Montserrat Licea Castillo [facility].; [facility]. 03-03-2023 10:16-0400 Systolic blood pressure 139 mm[Hg] [facility]errat [facility].; [employer] [facility]. 01-05-2023 13:24-0400 Body height 177.8 cm Kaylin Yeni Hui PA-C Work Phone: [employer] [facility].; [employer] [facility]. 01-05-2023 13:24-0400 Body mass index (BMI) [Ratio] 30.42 kg/m2 Kaylin Jaime Hui PA-C Work Phone: [employer] [facility].; [employer] [facility]. 01-05-2023 13:24-0400 Body surface area Derived from formula 2.14 m2 Kaylin Yeni Hui PA-C Work Phone: [employer] [facility].; [employer] [facility]. 01-05-2023 13:24-0400 Body weight 96.16 kg Kaylin Yeni Hui PA-C Work Phone: [employer] [facility].; [employer] [facility]. 01-05-2023 13:24-0400 Diastolic blood pressure 74 mm[Hg] Kaylin Yeni Hui PA-C Work Phone: [facility].; [facility] 01-05-2023 13:24-0400 Heart rate 73 /min Kaylin Hui PA-C Work Phone: [facility].; [facility] 01-05-2023 13:24-0400 Systolic blood pressure 136 mm[Hg] Kaylin Hui PA-C Work Phone: [facility].; [facility] 11-27-2022 02:03-0500 Diastolic blood pressure 70 mm[Hg] Pcp Unknown [facility] 11-27-2022 02:03-0500 Heart rate 71 /min Pcp Unknown [facility] 11-27-2022 02:03-0500 Respiratory rate 16 /min Pcp Unknown [facility] 11-27-2022 02:03-0500 SaO2% (BldA) [Mass fraction] 95 % Pcp Unknown [facility] 11-27-2022 02:03-0500 Systolic blood pressure 138 mm[Hg] Pcp Unknown [facility] 09-27-2022 13:53-0500 Body height 175.3 cm Sonu Riojas MD Work Phone: [facility] 09-27-2022 13:53-0500 Body temperature 97.7 [degF] Sonu Riojas MD Work Phone: [facility] 09-27-2022 13:53-0500 Body weight 98.1 kg Pulm 11 Other Phone: [facility] 09-27-2022 13:53-0500 Diastolic blood pressure 67 mm[Hg] Sonu Riojas MD Work Phone: [facility] 09-27-2022 13:53-0500 Heart rate 65 /min Sonu Riojas MD Work Phone: [facility] 09-27-2022 13:53-0500 Respiratory rate 18 /min Sonu Riojas MD Work Phone: [facility] 09-27-2022 13:53-0500 SaO2% (BldA) [Mass fraction] 94 % Sonu Riojas MD Work Phone: [facility] 09-27-2022 13:53-0500 Systolic blood pressure 141 mm[Hg] Sonu Riojas MD Work Phone: [facility] 09-27-2022 11:00-0500 Body height 173 cm Pulm 11 Other Phone: [facility] 07-18-2022 14:04-0400 Body height 177.8 cm Kaylin Jaime Hui PA-C Work Phone: [employer] 07-18-2022 14:04-0400 Body mass index (BMI) [Ratio] 30.56 kg/m2 Kaylin J Hui PA-C Work Phone: [employer] 07-18-2022 14:04-0400 Body surface area Derived from formula 2.14 m2 Kaylin J Hui PA-C Work Phone: [employer] 07-18-2022 14:04-0400 Body temperature 99 [degF] Kaylin Yeni Hui PA-C Work Phone: [employer] 07-18-2022 14:04-0400 Body weight 96.62 kg Kaylin Yeni Hui PA-C Work Phone: [employer]. 07-18-2022 14:04-0400 Diastolic blood pressure 86 mm[Hg] Kaylin J Hui PA-C Work Phone: [employer]. 07-18-2022 14:04-0400 Heart rate 61 /min Kaylin J Hui PA-C Work Phone: [employer] 07-18-2022 14:04-0400 Systolic blood pressure 147 mm[Hg] Kaylin PEGUERO-C Work Phone: [facility], [facility].; [facility], [facility]. 07-07-2022 09:38-0400 Body height 177.8 cm Yolis Mora LPN [facility], [facility].; [facility] [employer] 07-07-2022 09:38-0400 Body mass index (BMI) [Ratio] 30.85 kg/m2 Yolis [facility], [facility].; [facility], [employer] 07-07-2022 09:38-0400 Body surface area Derived from formula 2.15 m2 Yolis Rusosstephanie [facility], [facility].; [facility], [facility]. 07-07-2022 09:38-0400 Body temperature 97.7 [degF] Yolisfabiola Mora [facility], [facility].; [facility], [facility]. 07-07-2022 09:38-0400 Body weight 97.52 kg Yolis [facility], [facility].; [facility], [facility]. 07-07-2022 09:38-0400 Diastolic blood pressure 86 mm[Hg] Yolisfabiola Russostephanie [facility], [facility].; [facility], [employer] 07-07-2022 09:38-0400 Heart rate 61 /min Yolisfabiola Russostephanie XIE [facility], [facility].; [facility], [facility]. 07-07-2022 09:38-0400 Systolic blood pressure 156 mm[Hg] Yolis Mora LPN [facility], [facility].; [facility] [employer] 06-30-2022 13:13-0400 Body height 177.8 cm Kaylin PEGUERO-C Work Phone: [facility], [facility].; [facility] [employer] 06-30-2022 13:13-0400 Body mass index (BMI) [Ratio] 30.42 kg/m2 Kaylin Hui PA-C Work Phone: [facility], [facility].; [facility] [employer] 06-30-2022 13:13-0400 Body surface area Derived from formula 2.14 m2 Kaylin Arellanoer PA-C Work Phone: [employer]; [employer] [facility] 06-30-2022 13:13-0400 Body weight 96.16 kg Kaylin Arellanoer PA-C Work Phone: [employer] [facility] 06-30-2022 13:13-0400 Diastolic blood pressure 73 mm[Hg] Kaylin Arellanoer PA-C Work Phone: [employer] [facility] 06-30-2022 13:13-0400 Heart rate 64 /min Kaylin Arellanoer PA-C Work Phone: [employer] [facility] 06-30-2022 13:13-0400 Systolic blood pressure 131 mm[Hg] Kaylin Arellanoer PA-C Work Phone: [employer] 03-15-2022 12:52-0400 Body temperature 97.81 [degF] Sonu Riojas MD Work Phone: [facility] 03-15-2022 12:52-0400 Diastolic blood pressure 69 mm[Hg] Sonu Riojas MD Work Phone: [facility] 03-15-2022 12:52-0400 Heart rate 60 /min Sonu Riojas MD Work Phone: [facility] 03-15-2022 12:52-0400 SaO2% (BldA) [Mass fraction] 93 % Sonu Riojas MD Work Phone: [facility] 03-15-2022 12:52-0400 Systolic blood pressure 135 mm[Hg] Sonu Riojas MD Work Phone: [facility] 12-27-2021 13:12-0400 Body height 177.8 cm Kaylin Arellanoer PA-C Work Phone: [employer].; [employer] 12-27-2021 13:12-0400 Body mass index (BMI) [Ratio] 30.28 kg/m2 Kaylin Jaime Hui PA-C Work Phone: [employer].; [employer]. 12-27-2021 13:12-0400 Body surface area Derived from formula 2.14 m2 Kaylin Yeni Hui PA-C Work Phone: [employer].; [employer]. 12-27-2021 13:12-0400 Body weight 95.71 kg Kaylin Jaime Hui PA-C Work Phone: [employer].; [employer]. 12-27-2021 13:12-0400 Diastolic blood pressure 74 mm[Hg] Kaylin Yeni Hui PA-C Work Phone: [employer].; [employer]. 12-27-2021 13:12-0400 Heart rate 61 /min Kaylin Jaime Hui PA-C Work Phone: [employer].; [employer]. 12-27-2021 13:12-0400 Systolic blood pressure 131 mm[Hg] Kaylin Yeni Hui PA-C Work Phone: [employer].; [employer]. 11-17-2021 08:56-0500 Body height 177.8 cm Kaylin Yeni Hui PA-C Work Phone: [employer].; [employer]. 11-17-2021 08:56-0500 Body mass index (BMI) [Ratio] 30.28 kg/m2 Kaylin Yeni Hui PA-C Work Phone: [employer].; [employer] 11-17-2021 08:56-0500 Body surface area Derived from formula 2.14 m2 Kaylin Yeni Hui PA-C Work Phone: [employer].; [employer] [facility]. 11-17-2021 08:56-0500 Body weight 95.71 kg Kaylin Arellanoer PA-C Work Phone: [employer].; [employer] 11-17-2021 08:56-0500 Diastolic blood pressure 64 mm[Hg] Kyalin Yeni Hui PA-C Work Phone: [employer].; [employer] 11-17-2021 08:56-0500 Heart rate 57 /min Kaylin Jaime Hui PA-C Work Phone: [employer].; [employer] 11-17-2021 08:56-0500 Systolic blood pressure 124 mm[Hg] Kaylin Yeni Hui PA-C Work Phone: [employer].; [employer] [facility]. 10-22-2021 13:13-0500 Body height 177.8 cm Kaylin Jaime Hui PA-C Work Phone: [employer].; [employer]. 10-22-2021 13:13-0500 Body mass index (BMI) [Ratio] 30.99 kg/m2 Kaylin Jaime Hui PA-C Work Phone: [employer].; [employer]. 10-22-2021 13:13-0500 Body surface area Derived from formula 2.16 m2 Kaylin Yeni Hui PA-C Work Phone: [employer].; [employer]. 10-22-2021 13:13-0500 Body weight 97.98 kg Kaylin Yeni Hui PA-C Work Phone: [employer].; [employer]. 10-22-2021 13:13-0500 Diastolic blood pressure 78 mm[Hg] Kaylin Yeni Hui PA-C Work Phone: [employer].; [employer] 10-22-2021 13:13-0500 Heart rate 70 /min Kaylin Yeni Hui PA-C Work Phone: [facility], [facility].; [employer], [facility]. 10-22-2021 13:13-0500 Systolic blood pressure 134 mm[Hg] Kayiln Yeni Hui PA-C Work Phone: [facility], [facility].; [employer] [facility] 08-03-2021 14:39-0500 Body height 177.8 cm Lucia Alcala LPN [facility], [facility].; [employer] 08-03-2021 14:39-0500 Body mass index (BMI) [Ratio] 30.71 kg/m2 Lucia Alcala LPN [employer] [facility] 08-03-2021 14:39-0500 Body surface area Derived from formula 2.15 m2 Lucia Alcala COMPUTER METHODS ANALYST [employer] [facility], [facility] 08-03-2021 14:39-0500 Body weight 97.07 kg Lucia Alcala COMPUTER METHODS ANALYST [employer] [facility], [facility].; [employer] 08-03-2021 14:39-0500 Diastolic blood pressure 77 mm[Hg] Lucia Alcala LPN [employer] [facility], [facility] [employer] 08-03-2021 14:39-0500 Heart rate 59 /min Lucia Alcala COMPUTER METHODS ANALYST [employer] [facility], [facility].; [employer], [facility]. 08-03-2021 14:39-0500 Systolic blood pressure 139 mm[Hg] Lucia Alcala LPN [employer] [facility], [facility].; [employer] 06-10-2021 13:16-0400 Body height 177.8 cm Montserrat Chong COMPUTER METHODS ANALYST [employer] [facility], [facility].; [employer] 06-10-2021 13:16-0400 Body mass index (BMI) [Ratio] 29.84 kg/m2 Montserrat Chong LPN [employer] [facility], [employer] 06-10-2021 13:16-0400 Body surface area Derived from formula 2.12 m2 Montserrat Licea Castillo X[employer] [facility].; [facility] 06-10-2021 13:16-0400 Body weight 94.35 kg Montserrat Licea Castillo COMPUTER METHODS ANALYST [facility].; [facility]. 06-10-2021 13:16-0400 Diastolic blood pressure 74 mm[Hg] Montserrat Licea Castillo [facility].; [employer] [facility]. 06-10-2021 13:16-0400 Heart rate 51 /min Montserrat Licea Castillo [employer] [facility].; [employer] [facility]. 06-10-2021 13:16-0400 Systolic blood pressure 134 mm[Hg] Montserrat Licea Castillo [facility].; [employer] [facility]. 05-18-2021 16:34-0400 Body height 177.8 cm Breanna Yeni Baez PA-C Work Phone: [facility].; [employer] [facility]. 05-18-2021 16:34-0400 Body mass index (BMI) [Ratio] 29.7 kg/m2 Breanna J Baez PA-C Work Phone: [facility].; [employer] [employer] [facility]. 05-18-2021 16:34-0400 Body surface area Derived from formula 2.12 m2 Breanna J Baez PA-C Work Phone: [employer] [facility].; [employer] [facility]. 05-18-2021 16:34-0400 Body temperature 97.7 [degF] Breanna J Baez PA-C Work Phone: [employer] [facility]. 05-18-2021 16:34-0400 Body weight 93.9 kg Breanna J Baez PA-C Work Phone: [employer].; [employer] 05-18-2021 16:34-0400 Diastolic blood pressure 82 mm[Hg] Breanna J Baez PA-C Work Phone: [facility].; [employer] [facility]. 05-18-2021 16:34-0400 Heart rate 57 /min Breanna Yeni Baez PA-C Work Phone: [facility].; [employer] 05-18-2021 16:34-0400 Systolic blood pressure 144 mm[Hg] Breanna J Nestor PA-C Work Phone: [facility].; [employer] [facility]. 02-04-2021 11:20-0400 Body height 177.8 cm Lucia Alcala LPN [facility], [facility].; [employer] [facility]. 02-04-2021 11:20-0400 Body mass index (BMI) [Ratio] 29.99 kg/m2 Lucia Alcala LPN [facility], [facility].; [employer] [employer] [facility]. 02-04-2021 11:20-0400 Body surface area Derived from formula 2.13 m2 Lucia Alcala LPN [facility].; [employer] [employer] [facility]. 02-04-2021 11:20-0400 Body weight 94.8 kg Lucia Alcala LPN [facility], [facility].; [employer] [employer] [facility], [facility]. 02-04-2021 11:20-0400 Diastolic blood pressure 67 mm[Hg] Lucia Alcala LPN [facility], [facility].; [employer] [facility]. 02-04-2021 11:20-0400 Heart rate 60 /min Lucia [facility]cala LPN [facility] [facility].; Clay Flasma [facility]. 02-04-2021 11:20-0400 Systolic blood pressure 122 mm[Hg] Lucia Alcala LPN [facility], [facility].; [place] [employer] [facility]. 12-07-2020 11:25-0400 Body height 177.8 cm Gaby Mathias RN [place] [employer] website [facility], [facility].; [place] [employer] [facility]. 12-07-2020 11:25-0400 Body mass index (BMI) [Ratio] 30.71 kg/m2 Gaby Mathias RN ClayValor HealthMachinio [facility].; [place] Fan[employer] website [facility]. 12-07-2020 11:25-0400 Body surface area Derived from formula 2.15 m2 Gaby Mathias RN [facility].; Clay Fanli website [facility]. 12-07-2020 11:25-0400 Body temperature 99.1 [degF] Gaby Mathias RN [facility].; Clay Fanli website [facility]. 12-07-2020 11:25-040 Body weight 97.07 kg Gaby Mathias RN [facility].; [place] Fanli website [facility]. 12-07-2020 11:25-0400 Diastolic blood pressure 72 mm[Hg] Gaby Mathias RN [facility].; [place] [employer] website [facility], [facility]. 12-07-2020 11:25-0400 Systolic blood pressure 132 mm[Hg] Gaby Mathias RN [facility].; [place] Fanli website [facility], [facility]. 11-26-2020 11:32-0500 Body height 177.8 cm Lucia Alcala LPN [facility].; [place] Fanli website [facility]. 11-26-2020 11:32-0500 Body mass index (BMI) [Ratio] 30.28 kg/m2 Lucia Alcala LPN [place] [employer] website [facility], [facility].; Clay Xced[employer], [facility]. 11-26-2020 11:32-0500 Body surface area Derived from formula 2.14 m2 Lucia Alcala LPN [facility], [facility].; [place] Flasma [facility]. 11-26-2020 11:32-0500 Body weight 95.71 kg Lucia Alcala LPN [place] Fan[employer] website [facility].; ClayTalkApolis [facility]. 11-26-2020 11:32-0500 Diastolic blood pressure 80 mm[Hg] Lucia Alcala LPN [place] [employer] website [facility], [facility].; [place] Flasma [facility]. 11-26-2020 11:32-0500 Heart rate 56 /min Lucia Alcala LPN [place] [employer] website [facility], [facility].; ClayTalkApolis [facility]. 11-26-2020 11:32-0500 Systolic blood pressure 130 mm[Hg] Lucia Alcala LPN [facility], [facility].; [facility], [facility]. 08-04-2020 13:32-0500 Body height 177.8 cm Lucia Alcala LPN [facility], [facility].; [facility], [facility]. 08-04-2020 13:32-0500 Body mass index (BMI) [Ratio] 29.13 kg/m2 Lucia Alcala LPN [facility], [facility].; [facility], [facility]. 08-04-2020 13:32-0500 Body surface area Derived from formula 2.1 m2 Lucia Alcala LPN [facility], [facility].; [facility], [facility]. 08-04-2020 13:32-0500 Body temperature 98.9 [degF] Lucia Alcala LPN [facility], [facility].; [facility], [facility]. 08-04-2020 13:32-0500 Body weight 92.08 kg Lucia Alcala COMPUTER METHODS ANALYST [facility], [facility].; [facility], [facility]. 08-04-2020 13:32-0500 Diastolic blood pressure 63 mm[Hg] Lucia Alcala LPN [facility], [facility].; [facility], [facility]. 08-04-2020 13:32-0500 Heart rate 61 /min Lucia Alcala COMPUTER METHODS ANALYST [facility], [facility].; [facility], [facility]. 08-04-2020 13:32-0500 Inhaled oxygen concentration 20 % Lucia Alcala COMPUTER METHODS ANALYST [facility], [facility].; [place] Fan[employer] website [facility], [facility]. 08-04-2020 13:32-0500 SaO2% (BldA) [Mass fraction] 94 % Lucia Alcala LPN [facility], [facility].; [place] Fan[employer] website [facility], [facility]. 08-04-2020 13:32-0500 Systolic blood pressure 124 mm[Hg] Lucia Alcala COMPUTER METHODS ANALYST [facility], [facility].; [place] Fan[employer] website [facility], [facility]. 05-13-2020 10:09-0400 Body height 177.8 cm Gris Reyes COMPUTER METHODS ANALYST [facility], [facility].; [place] X[employer]ex, [employer] 05-13-2020 10:09-0400 Body temperature 98.6 [degF] Gris Reyes [facility], [facility].; [employer]. 05-13-2020 10:09-0400 Diastolic blood pressure 74 mm[Hg] [facility] Fanli website [facility], [employer], [employer]; [employer]. 05-13-2020 10:09-0400 Heart rate 72 /min Debby AmySharp [facility], [facility].; [employer]. 05-13-2020 10:09-0400 Inhaled oxygen concentration 20 % [facility] Fanli website [facility], [facility].; [employer]. 05-13-2020 10:09-0400 SaO2% (BldA) [Mass fraction] 93 % [facility] AndersonIn[facility], [facility].; [employer]. 05-13-2020 10:09-0400 Systolic blood pressure 127 mm[Hg] Debby Stuckey [place] [employer] [facility], [employer], [employer]; [employer]. 03-12-2020 14:42-0400 Body height 177.8 cm Gaby Mathias RN [place] Fan[employer] website [facility].; [employer]. 03-12-2020 14:42-0400 Body mass index (BMI) [Ratio] 29.99 kg/m2 Gaby Mathias RN ClayInRoom [employer] [facility].; [employer]. 03-12-2020 14:42-0400 Body surface area Derived from formula 2.13 m2 Gaby Mathias RN ClayInRoom [employer] [facility].; [employer]. 03-12-2020 14:42-0400 Body weight 94.8 kg Gaby Mathias RN [employer].; [employer]. 03-12-2020 14:42-0400 Diastolic blood pressure 69 mm[Hg] Gaby Mathias RN [employer].; [employer]. 03-12-2020 14:42-0400 Heart rate 52 /min Gaby Mathias RN [employer].; [employer]. 03-12-2020 14:42-0400 Systolic blood pressure 123 mm[Hg] Gaby Mathias RN [employer].; CCBR-SYNARCMachinio [facility]. 11-01-2019 13:01-0500 Body height 177.8 cm Montserrat Vinayak Castillo XIE [facility].; ClayIn[employer] [facility]. 11-01-2019 13:01-0500 Body mass index (BMI) [Ratio] 29.99 kg/m2 Montserrat Chong LPN [facility].; Clay Fanli website [facility]. 11-01-2019 13:01-0500 Body surface area Derived from formula 2.13 m2 Montserrat Chong LPN [place] Fan[employer] website [facility].; ClayInRoom Broadcasting [facility]. 11-01-2019 13:01-0500 Body weight 94.8 kg Montserrat M Castillo XIE [place] Fan[employer] website [facility].; [place] Fanli website [facility]. 11-01-2019 13:01-0500 Diastolic blood pressure 81 mm[Hg] Montserrat Chong LPN [place] Fan[employer] website [facility].; ClayInRoom Broadcasting [facility]. 11-01-2019 13:01-0500 Heart rate 56 /min Montserrat Chong LPN [place] Fan[employer] website [facility].; ClayInRoom Broadcasting [facility]. 11-01-2019 13:01-0500 Systolic blood pressure 131 mm[Hg] Montserrat Chong LPN [place] Fan[employer] website [facility].; ClayInRoom Broadcasting [facility]. 09-26-2019 11:30-0500 Body height 177.8 cm Gaby Mathias RN [place] Fan[employer] website [facility].; ClayTalkApolis [facility]. 09-26-2019 11:30-0500 Body mass index (BMI) [Ratio] 30.42 kg/m2 Gaby Mathias RN [place] Fan[employer] website [facility].; [employer]. 09-26-2019 11:30-0500 Body surface area Derived from formula 2.14 m2 Gaby Mathias RN ClayInRoom Broadcasting [facility].; [employer]. 09-26-2019 11:30-0500 Body temperature 99.4 [degF] Gaby Mathias RN [place] Fan[employer] website [facility].; [employer]. 09-26-2019 11:30-0500 Body weight 96.16 kg Gaby aMthias RN [employer], [employer].; CCBR-SYNARC, Inc. 09-26-2019 11:30-0500 Diastolic blood pressure 59 mm[Hg] Gaby Mathias RN Clay Xcedex, Inc.; CCBR-SYNARC, Inc. 09-26-2019 11:30-0500 Heart rate 62 /min Gaby Mathias RN ClayInRoom Broadcasting [facility], Inc.; CCBR-SYNARC, Inc. 09-26-2019 11:30-0500 Systolic blood pressure 98 mm[Hg] Gaby Mathias RN [employer], [employer].; [employer]ARC, Inc. 08-02-2019 14:25-0500 Body height 177.8 cm Montserrat Chong COMPUTER METHODS ANALYST [employer], [employer].; CCBR-SYNARC, Inc. 08-02-2019 14:25-0500 Body mass index (BMI) [Ratio] 30.13 kg/m2 Montserrat Chong LPN [employer], [employer].; [employer]ARC, Inc. 08-02-2019 14:25-0500 Body surface area Derived from formula 2.13 m2 Montserrat Chong LPN CCBR-SYNARC, Inc.; CCBR-SYNARC, [employer], [employer] 08-02-2019 14:25-0500 Body weight 95.26 kg Montserrat Chong COMPUTER METHODS ANALYST [employer], [employer].; CCBR-SYNARC, Inc. 08-02-2019 14:25-0500 Diastolic blood pressure 77 mm[Hg] Montserrat Chong LPN [employer], [employer].; [employer]NARC, Inc. 08-02-2019 14:25-0500 Heart rate 61 /min Montserrat Chong LPN [employer], [employer].; CCBR-SYNARC, [employer], [employer] 08-02-2019 14:25-0500 Systolic blood pressure 117 mm[Hg] Montserrat Chong LPN [employer], [employer].; [employer]ARC, Inc. 07-31-2019 13:06-0500 Body height 177.8 cm Judy Kasper LPN [employer], [employer].; CCBR-SYNARC, [employer], [employer] 07-31-2019 13:06-0500 Body mass index (BMI) [Ratio] 30.13 kg/m2 Judychester Kasper ROJAS [employer], [employer].; CCBR-SYNARC, Inc. 07-31-2019 13:06-0500 Body surface area Derived from formula 2.13 m2 Judy Rivasmoiz COMPUTER METHODS ANALYST [employer], [employer].; [employer]NARC, Inc. 07-31-2019 13:06-0500 Body weight 95.26 kg Judy Majo COMPUTER METHODS ANALYST [employer], [employer].; [employer]NARC, Inc. 07-31-2019 13:06-0500 Diastolic blood pressure 80 mm[Hg] Judy Rivasmoiz COMPUTER METHODS ANALYST [employer], [employer].; CCBR-[employer]NARC, Inc. 07-31-2019 13:06-0500 Heart rate 63 /min Judy Majo COMPUTER METHODS ANALYST [employer], [employer].; CCBR-SYNARC, Inc. 07-31-2019 13:06-0500 Systolic blood pressure 137 mm[Hg] Judy Rivasmoiz [place] [employer] SSD[employer] 1, Inc.; CCBR-SYNARC, Inc. 07-16-2019 16:08-0400 Body height 177.8 cm Lucia Alcala LPN [employer], [employer].; [employer], Inc. 07-16-2019 16:08-0400 Body mass index (BMI) [Ratio] 31.42 kg/m2 Lucia Alcala LPN [employer], [employer].; [employer], Inc. 07-16-2019 16:08-0400 Body surface area Derived from formula 2.17 m2 Lucia Alcala LPN [employer], [employer].; [employer], Inc. 07-16-2019 16:08-0400 Body temperature 98 [degF] Lucia Alcala LPN [facility], Inc.; [employer]SYNARC, Inc. 07-16-2019 16:08-0400 Body weight 99.34 kg Lucia Alcala LPN [employer], [employer].; [employer]ARC, Inc. 07-16-2019 16:08-0400 Diastolic blood pressure 75 mm[Hg] Lucia Alcala LPN [employer], [employer].; [employer]NARC, Inc. 07-16-2019 16:08-0400 Heart rate 48 /min Lucia Alcala LPN [employer], [employer].; CCBR-SYNARC, [employer], [employer] 07-16-2019 16:08-0400 Inhaled oxygen concentration 20 % Lucia Alcala COMPUTER METHODS ANALYST [place] website [facility], Inc.; CCBR-SYNARC, [employer], [employer].. 07-16-2019 16:08-0400 SaO2% (BldA) [Mass fraction] 96 % Lucia Alcala COMPUTER METHODS ANALYST [place] Fan[place] website [facility], Inc.; CCBR-SYNARC, [employer], [employer].. 07-16-2019 16:08-0400 Systolic blood pressure 128 mm[Hg] Lucia Alcala COMPUTER METHODS ANALYST [place] Fan[employer] website [facility], Inc.; CCBR-SYNARC, Inc. 06-26-2019 07:47-0400 Body height 177.8 cm Gris Avitiauckey COMPUTER METHODS ANALYST [place] Fanli website [facility], Inc.; CCBR-SYNARC, [employer], [employer] 06-26-2019 07:47-0400 Body mass index (BMI) [Ratio] 29.56 kg/m2 Debby Le Flore COMPUTER METHODS ANALYST [place] Fan[place] website [facility], Inc.; CCBR-SYNARC, Inc. 06-26-2019 07:47-0400 Body surface area Derived from formula 2.11 m2 Debby Le Fl[place] COMPUTER METHODS ANALYST [place] Fan[place] website [facility], Inc.; CCBR-SYNARC, [employer], [employer].. 06-26-2019 07:47-0400 Body temperature 97.6 [degF] DebbyLisa Goldsmithey COMPUTER METHODS ANALYST [place] Fan[place] website [facility], Inc.; CCBR-SYNARC, Inc. 06-26-2019 07:47-0400 Body weight 93.44 kg Debby [place] ROJAS [place] Fanli website [facility], Inc.; CCBR-SYNARC, [employer], [employer].. 06-26-2019 07:47-0400 Diastolic blood pressure 67 mm[Hg] DebbyLisa Goldsmithey ROJAS [place] Fanli website [facility], Inc.; CCBR-SYNARC, [employer], [employer].. 06-26-2019 07:47-0400 Heart rate 52 /min Debby Amy COMPUTER METHODS ANALYST [place] Fan[place] website [facility], Inc.; CCBR-SYNARC, [employer], [employer].. 06-26-2019 07:47-0400 Inhaled oxygen concentration 20 % Gris Reyes COMPUTER METHODS ANALYST [place] Fan[place] website [facility], Inc.; CCBR-SYNARC, [employer], [employer].. 06-26-2019 07:47-0400 SaO2% (BldA) [Mass fraction] 98 % Debby Amy COMPUTER METHODS ANALYST ClayInRoom Broadcasting [facility], Inc.; ClayTalkApolis Inc. 06-26-2019 07:47-0400 Systolic blood pressure 106 mm[Hg] Gris Reyes COMPUTER METHODS ANALYST [place] Fan[employer] website [facility], Inc.; Clay Xcedex, Inc. 06-20-2019 12:53-0400 Body height 177.8 cm Krissy Bell LPNorthwest Mississippi Medical CenterClearwell Systems [facility], Inc.; Clay Flasma Inc. 06-20-2019 12:53-0400 Body mass index (BMI) [Ratio] 31.71 kg/m2 Krissy Bell [facility] [employer], Inc.; CCBR-SYNARC, Inc. 06-20-2019 12:53-0400 Body surface area Derived from formula 2.18 m2 Krissy Bell [facility] [employer], Inc.; CCBR-SYNARC, Inc. 06-20-2019 12:53-0400 Body temperature 98.2 [degF] Krissy Bell [facility] [employer], Inc.; Clay Xcedex, Inc. 06-20-2019 12:53-0400 Body weight 100.25 kg [facility]issy [facility] [employer], Inc.; CCBR-SYNARC, Inc. 06-20-2019 12:53-0400 Diastolic blood pressure 91 mm[Hg] Krissy [facility] [employer]ex, Inc.; CCBR-SYNARC, Inc. 06-20-2019 12:53-0400 Heart rate 54 /min Krissy Bell [facility], Inc.; [employer] 1, Inc. 06-20-2019 12:53-0400 Inhaled oxygen concentration 28 % Krissy Bell [facility] [employer], Inc.; [employer]. 06-20-2019 12:53-0400 SaO2% (BldA) [Mass fraction] 97 % Krissydania Bell [facility] [employer], Inc.; [employer] Inc. 06-20-2019 12:53-0400 Systolic blood pressure 147 mm[Hg] Krissy Bell [facility] [employer], Inc.; [employer]. 06-20-2019 12:53-0400 2 L/min Krissy Ray [facility], [facility].; [facility], Inc. 04-05-2019 10:15-0400 Body height 177.8 cm Montserrat Chatmanlabach [facility], Inc.; Clay Xcedex, Inc. 04-05-2019 10:15-0400 Body mass index (BMI) [Ratio] 30.42 kg/m2 Montserrat Licea CastilloLucile [facility], Inc.; Clay Xcedex, Inc. 04-05-2019 10:15-0400 Body surface area Derived from formula 2.14 m2 Montserrat [facility], Inc.; [place] Flasma Inc. 04-05-2019 10:150400 Body weight 96.16 kg Montserrat [facility] Henry[facility]Luc[facility], Inc.; Clay Flasma Inc. 04-05-2019 10:15-0400 Diastolic blood pressure 68 mm[Hg] Montserrat [facility] HenryettaCast[facility] CenterM[facility]io Inc.; Clay Flasma Inc. 04-05-2019 10:15-0400 Heart rate 68 /min Montserrat M Castillo [facility], Inc.; Clay Xcedex, Inc. 04-05-2019 10:15-0400 Systolic blood pressure 112 mm[Hg] Montserrat Licea Castillo [facility], Inc.; ClayTalkApolis Inc. 01-11-2019 10:210400 Body height 177.8 cm Amanda Guzman MD Work Phone: [place] [employer].; [employer]. 01-11-2019 10:21-0400 Body mass index (BMI) [Ratio] 28.7 kg/m2 Amanda Guzman MD Work Phone: [place] [employer].; ClayTalkApolis Inc. 01-11-2019 10:21-0400 Body surface area Derived from formula 2.09 m2 Amanda Guzman MD Work Phone: [place] [employer].; [employer]. 01-11-2019 10:21-0400 Body weight 90.72 kg Amanda Guzman MD Work Phone: [employer]NARC, [employer], [employer]; CCBR-SYNARC, Inc. 01-11-2019 10:21-0400 Diastolic blood pressure 54 mm[Hg] Amanda Guzman MD Work Phone: [employer], [employer].; CCBR-[employer]NARC, Inc. 01-11-2019 10:21-0400 Heart rate 51 /min Amanda Guzman MD Work Phone: [employer]SYNARC, [employer], [employer]; CCBR-SYNARC, Inc. 01-11-2019 10:21-0400 Systolic blood pressure 96 mm[Hg] Amanda Guzman MD Work Phone: [employer].; CCBR-SYNARC, Inc. 12-10-2018 08:56-0400 Body height 177.8 cm Debby Stuckey COMPUTER METHODS ANALYST [employer] 1, [employer].; CCBR-SYNARC, Inc. 12-10-2018 08:56-0400 Body mass index (BMI) [Ratio] 28.27 kg/m2 Debby Stuckey COMPUTER METHODS ANALYST [employer]-SYNARC, Inc.; CCBR-[employer]NARC, Inc. 12-10-2018 08:56-0400 Body surface area Derived from formula 2.07 m2 Debby Stuckey COMPUTER METHODS ANALYST [employer] 1, [employer].; [employer]BR-[employer]ARC, Inc. 12-10-2018 08:56-0400 Body temperature 98.9 [degF] DebbyLisa Reyes COMPUTER METHODS ANALYST [employer] 1, [employer].; [employer]BR-[employer]ARC, Inc. 12-10-2018 08:56-0400 Body weight 89.36 kg DebbyLisa Reyes COMPUTER METHODS ANALYST [employer]BR-SYNARC, Inc.; CCBR-SYNARC, Inc. 12-10-2018 08:56-0400 Diastolic blood pressure 65 mm[Hg] Gris Reyes COMPUTER METHODS ANALYST [employer]-SYNARC, Inc.; CCBR-[employer]ARC, Inc. 12-10-2018 08:56-0400 Heart rate 56 /min DebbyLsia Reyes COMPUTER METHODS ANALYST [employer]-SYNARC, Inc.; CCBR-SYNARC, Inc. 12-10-2018 08:56-0400 Systolic blood pressure 101 mm[Hg] Gris Reyes LPN [employer].; [employer]. 10-26-2018 11:26-0500 Body height 177.8 cm Gaby Mathias RN [employer].; [employer]. 10-26-2018 11:26-0500 Body mass index (BMI) [Ratio] 29.27 kg/m2 Gaby Mathias RN [employer].; [employer]. 10-26-2018 11:26-0500 Body surface area Derived from formula 2.11 m2 Gaby Mathias RN [employer].; [employer]. 10-26-2018 11:26-0500 Body temperature 98.8 [degF] Gaby Mathias RN [employer].; [employer]. 10-26-2018 11:26-0500 Body weight 92.53 kg Gaby Mathias RN [employer].; [employer]. 10-26-2018 11:26-0500 Diastolic blood pressure 83 mm[Hg] Gaby Mathias RN [employer].; [employer]. 10-26-2018 11:26-0500 Heart rate 56 /min Gaby Mathias RN [employer].; [employer]. 10-26-2018 11:26-0500 Inhaled oxygen concentration 20 % Gaby Mathias RN [employer].; [employer]. 10-26-2018 11:26-0500 SaO2% (BldA) [Mass fraction] 97 % Gaby Mathias RN [employer].; [employer]. 10-26-2018 11:26-0500 Systolic blood pressure 153 mm[Hg] Gaby Mathias RN [employer].; [employer]. 10-05-2018 08:58-0500 Body height 177.8 cm Amanda Guzman MD Work Phone: [employer].; [employer]. 10-05-2018 08:58-0500 Body mass index (BMI) [Ratio] 28.55 kg/m2 Amanda Guzman MD Work Phone: [employer].; [employer]. 10-05-2018 08:58-0500 Body surface area Derived from formula 2.08 m2 Amanda Guzman MD Work Phone: [employer].; [employer]. 10-05-2018 08:58-0500 Body weight 90.27 kg Amanda Guzman MD Work Phone: [employer].; [employer]. 10-05-2018 08:58-0500 Diastolic blood pressure 74 mm[Hg] Amanda Guzman MD Work Phone: [employer].; [employer]. 10-05-2018 08:58-0500 Heart rate 78 /min Amanda Guzman MD Work Phone: [employer].; [employer]. 10-05-2018 08:58-0500 Inhaled oxygen concentration 20 % Amanda Guzman MD Work Phone: [employer].; [employer]. 10-05-2018 08:58-0500 SaO2% (BldA) [Mass fraction] 92 % Amanda Guzman MD Work Phone: [employer].; [employer]. 10-05-2018 08:58-0500 Systolic blood pressure 138 mm[Hg] Amanda Guzman MD Work Phone: [employer].; [employer]. 09-14-2018 13:12-0500 Body height 177.8 cm [employer]xto [employer] GogoSIVI (scribe) [employer] Inc.; [employer]. 09-14-2018 13:12-0500 Body mass index (BMI) [Ratio] 26.11 kg/m2 Lixto Softwareanta Gogoi (scribe) [employer] Inc.; [employer]. 09-14-2018 13:12-0500 Body surface area Derived from formula 2.01 m2 Hemanta Gogoi (scribe) Clay Fanli website [facility], Inc.; Clya[employer] 1, [employer], Inc.. 09-14-2018 13:12-0500 Body weight 82.56 kg Hemanta Gogoi (scribe) Clay Fanli website [facility], Inc.; Clay[employer] 1, Inc. 09-14-2018 13:12-0500 Diastolic blood pressure 52 mm[Hg] Hemanta Gogoi (scribe) Clay Fanli website [facility], Inc.; [employer] 1, Inc. 09-14-2018 13:12-0500 Heart rate 50 /min Hemanta Gogoi (scribe) Clay Fanli website [facility], Inc.; Clay[employer] 1, [employer], Inc.. 09-14-2018 13:12-0500 Systolic blood pressure 90 mm[Hg] Hemanta Gogoi (scribe) [place] Fanli website [facility], Inc.; [employer] 1, Inc. 08-23-2018 15:55-0500 Body height 177.8 cm Hemanta Gogoi (scribe) Clay Fanli website [facility], Inc.; [employer] 1, Inc. 08-23-2018 15:55-0500 Body mass index (BMI) [Ratio] 26.54 kg/m2 Hemanta Gogoi (scribe) ClayInRoom [employer] [facility], Inc.; [employer] 1, Inc. 08-23-2018 15:55-0500 Body surface area Derived from formula 2.02 m2 Hemanta Gogoi (scribe) Clay Xcedex, Inc.; ClayOptics 1, [employer], Inc.. 08-23-2018 15:55-0500 Body temperature 98.1 [degF] Hemanta Gogoi (scribe) [employer] 1, Inc.; [employer] 1, Inc. 08-23-2018 15:55-0500 Body weight 83.92 kg Hemanta Gogoi (scribe) [employer] 1, Inc.; [employer] 1, Inc. 08-23-2018 15:55-0500 Diastolic blood pressure 72 mm[Hg] Hemanta Gogoi (scribe) [employer] 1, Inc.; [employer] 1, Inc. 08-23-2018 15:55-0500 Heart rate 52 /min Hemanta Gogoi (scribe) [employer] 1, Inc.; [employer]. 08-23-2018 15:55-0500 Inhaled oxygen concentration 20 % Hemanta Gogoi (scribe) ClayInRoom [employer] [facility].; [employer]. 08-23-2018 15:55-0500 SaO2% (BldA) [Mass fraction] 98 % Hemanta Gogoi [facility] [employer]In[employer] [facility] Inc.; [employer]. 08-23-2018 15:55-0500 Systolic blood pressure 130 mm[Hg] Hemanta Gogoi (scribe) ClayInRoom [employer] [facility].; [employer]. 08-23-2018 14:31-0500 Body height 177.8 cm [facility] [employer]In[employer] [facility].; [employer]. 08-23-2018 14:31-0500 Body mass index (BMI) [Ratio] 26.54 kg/m2 [facility] Goi ([facility]) [employer] [facility].; [employer]. 08-23-2018 14:31-0500 Body surface area Derived from formula 2.02 m2 [facility] [employer].; [employer]. 08-23-2018 14:31-0500 Body temperature 98.1 [degF] Hemanta Gogoi (scribe) [employer] [facility] Inc.; [employer]. 08-23-2018 14:31-0500 Body weight 83.92 kg Hemanta [facility]ogoi ([facility] [employer] [facility].; [employer]. 08-23-2018 14:31-0500 Diastolic blood pressure 68 mm[Hg] Hemanta Gogoi (scribe) [employer].; [employer]. 08-23-2018 14:31-0500 Heart rate 52 /min Hemanta Gogoi (scribe) [employer].; [employer]. 08-23-2018 14:31-0500 Inhaled oxygen concentration 20 % Hemanta Gogoi (scribe) [employer].; [employer]. 08-23-2018 14:31-0500 SaO2% (BldA) [Mass fraction] 98 % Hemanta Gogoi (scribe) [employer] [facility] [employer]. 08-23-2018 14:31-0500 Systolic blood pressure 128 mm[Hg] Hemanta Brettgoi (scribe) [employer].; [employer]. 07-30-2018 08:48-0500 Body height 177.8 cm Hemregina Enriquei ([facility] [employer].; [employer]. 07-30-2018 08:48-0500 Body mass index (BMI) [Ratio] 26.11 kg/m2 Hemanta Ivai ([facility]) [employer] [facility].; [employer]. 07-30-2018 08:48-0500 Body surface area Derived from formula 2.01 m2 [facility] [employer] [facility] Inc.; [employer]. 07-30-2018 08:48-0500 Body temperature 99 [degF] Hemregina Enriquei ([facility] [employer].; [employer]. 07-30-2018 08:48-0500 Body weight 82.56 kg Hemregina Enriquei ([facility] [employer].; [employer]. 07-30-2018 08:48-0500 Diastolic blood pressure 41 mm[Hg] Hemregina Westgoi ([facility] [employer] [facility] Inc.; [employer]. 07-30-2018 08:48-0500 Heart rate 49 /min Hemanta Brettgoi ([employer]) [employer].; [employer]. 07-30-2018 08:48-0500 Inhaled oxygen concentration 20 % Hemanta Brettgoi ([employer]) [employer].; [employer]. 07-30-2018 08:48-0500 SaO2% (BldA) [Mass fraction] 92 % Hemanta Brettgoi (scribe) [employer].; [employer]. 07-30-2018 08:48-0500 Systolic blood pressure 91 mm[Hg] Aydin Vieira (scribe) [facility], Inc.; CCBR-SYNARC, Inc. 07-18-2018 10:16-0400 Body height 177.8 cm Montserrat Licea [facility]Paul [facility] [employer], Inc.; CCBR-SYNARC, Inc. 07-18-2018 10:16-0400 Body mass index (BMI) [Ratio] 26.11 kg/m2 Montserrat Licea CastilloEdgewood Surgical HospitalOptics 1, Inc.; CCBR-SYNARC, Inc. 07-18-2018 10:16-0400 Body surface area Derived from formula 2.01 m2 Montserrat Licea Castillo [place] [facility] SSD[facility] 1, Inc.; CCBR-SYNARC, [employer], [employer].. 07-18-2018 10:16-0400 Body weight 82.56 kg Montserrat Chong [place] [facility] [employer], Inc.; CCBR-SYNARC, [employer], Inc.. 07-18-2018 10:16-0400 Diastolic blood pressure 52 mm[Hg] Montserrat Licea Castillo [place] [facility] [employer], Inc.; CCBR-SYNARC, [employer], Inc.. 07-18-2018 10:16-0400 Heart rate 51 /min Montserrat Licea CastilloEdgewood Surgical HospitalOptics 1, [employer], Inc..; CCBR-SYNARC, [employer], Inc.. 07-18-2018 10:16-0400 Systolic blood pressure 100 mm[Hg] Montserrat Chong [place] [facility] [employer], Inc.; CCBR-SYNARC, [employer], Inc.. 07-04-2018 08:20-0400 Body height 177.8 cm Montserrat Licea CastilloEdgewood Surgical HospitalOptics 1, Inc.; CCBR-SYNARC, [employer], Inc.. 07-04-2018 08:20-0400 Body mass index (BMI) [Ratio] 27.26 kg/m2 Montserrat Starkach [place] [facility] [employer] [facility], Inc.; CCBR-SYNARC, [employer], Inc.. 07-04-2018 08:20-0400 Body surface area Derived from formula 2.04 m2 Montserrat Licea CastilloEdgewood Surgical HospitalOptics 1, Inc.; CCBR-SYNARC, [employer], Inc.. 07-04-2018 08:20-0400 Body weight 86.18 kg Montserrat Licea CastilloEdgewood Surgical HospitalOptics 1, [employer], Inc..; [employer]. 07-04-2018 08:20-0400 Diastolic blood pressure 77 mm[Hg] Montserrat Starkach [place] [facility] [employer] [facility], Inc.; [employer]. 07-04-2018 08:20-0400 Heart rate 53 /min Montserrat Licea Castillo COMPUTER METHODS ANALYST [place] [employer] website [facility], Inc.; [employer] Inc. 07-04-2018 08:20-0400 Systolic blood pressure 136 mm[Hg] Montserrat Licea Castillo COMPUTER METHODS ANALYST [employer] 1, Inc.; [employer]. 05-07-2018 10:31-0400 Body height 177.8 cm Montserrat Licea CastilloEdgewood Surgical HospitalInRoom Broadcasting [facility], Inc.; [employer]. 05-07-2018 10:31-0400 Body mass index (BMI) [Ratio] 28.41 kg/m2 Montserrat Licea Castillo [place] [facility] [employer] [facility], Inc.; [employer]. 05-07-2018 10:31-0400 Body surface area Derived from formula 2.08 m2 Montserrat Licea Castillo [place] [facility] SSDTalkApolis Inc.; [employer]. 05-07-2018 10:31-0400 Body weight 89.81 kg Montserrat Starkach [place] [facility] [employer] 1, Inc.; [employer]. 05-07-2018 10:31-0400 Diastolic blood pressure 69 mm[Hg] Montserrat Licea Castillo COMPUTER METHODS ANALYST Clay[employer] 1, Inc.; [employer]. 05-07-2018 10:31-0400 Heart rate 55 /min Montserrat Chatmanlabach COMPUTER METHODS ANALYST [employer] Inc.; [employer]. 05-07-2018 10:31-0400 Systolic blood pressure 121 mm[Hg] Montserrat Licea Castillo COMPUTER METHODS ANALYST Clay[employer] 1, Inc.; CCBR-SYNARC, [employer], Inc.. 04-09-2018 15:03-0400 Body height 177.8 cm [facility] (scrib) [facility], Inc.; [employer] Inc. 04-09-2018 15:03-0400 Body mass index (BMI) [Ratio] 26.97 kg/m2 [facility] (scribe) [employer] [facility], Inc.; CCBR-SYNARC, Inc. 04-09-2018 15:03-0400 Body surface area Derived from formula 2.03 m2 Hemanta Gogoi (scribe) [employer] [facility], Inc.; CCBR-SYNARC, Inc. 04-09-2018 15:03-0400 Body weight 85.28 kg Hemanta Gogoi (scribe) [employer] [facility], Inc.; CCBR-SYNARC, Inc. 04-09-2018 15:03-0400 Diastolic blood pressure 56 mm[Hg] Hemanta Gogoi (scribe) [employer] 1, Inc.; CCBR-SYNARC, Inc. 04-09-2018 15:03-0400 Heart rate 63 /min Hemanta Gogoi (scribe) [employer] 1, Inc.; CCBR-SYNARC, Inc. 04-09-2018 15:03-0400 Systolic blood pressure 98 mm[Hg] Hemanta Gogoi (scribe) [employer] 1, Inc.; CCBR-SYNARC, Inc. 09-11-2017 11:12-0500 Body height 177.8 cm Gris Reyes COMPUTER METHODS ANALYST [employer] 1, Inc.; CCBR-SYNARC, Inc. 09-11-2017 11:12-0500 Body mass index (BMI) [Ratio] 32.86 kg/m2 Debby Le Flore COMPUTER METHODS ANALYST [employer] 1, Inc.; CCBR-SYNARC, Inc. 09-11-2017 11:12-0500 Body surface area Derived from formula 2.21 m2 Debby Le Flore COMPUTER METHODS ANALYST [employer] 1, Inc.; CCBR-SYNARC, Inc. 09-11-2017 11:12-0500 Body weight 103.87 kg Debby Le Flore COMPUTER METHODS ANALYST [employer] 1, Inc.; CCBR-SYNARC, Inc. 09-11-2017 11:12-0500 Diastolic blood pressure 82 mm[Hg] Debby Le Flore COMPUTER METHODS ANALYST [employer] 1, Inc.; CCBR-SYNARC, Inc. 09-11-2017 11:12-0500 Heart rate 73 /min Debby Le Flore COMPUTER METHODS ANALYST [employer] 1, Inc.; CCBR-SYNARC, Inc. 09-11-2017 11:12-0500 Systolic blood pressure 140 mm[Hg] Gris Reyes ROJAS [facility].; [employer]. 09-01-2017 10:13-0500 Body height 177.8 cm [facility]) [facility], [facility].; [employer] Inc. 09-01-2017 10:13-0500 Body mass index (BMI) [Ratio] 32.57 kg/m2 Alo Nael [facility]Saint [facility]) [facility], Inc.; [employer]. 09-01-2017 10:13-0500 Body surface area Derived from formula 2.2 m2 Alo Nael TrianaSaint [facility] Eastibe) [facility], Inc.; [employer]. 09-01-2017 10:130500 Body weight 102.97 kg Alomu TrianaSaint Joseph Eastscar) [facility], [employer], [employer]..; [employer]. 09-01-2017 10:13-0500 Diastolic blood pressure 68 mm[Hg] Alo TrianaSaint Joseph Eastscar) [place] [employer] website [facility], Inc.; [employer]. 09-01-2017 10:13-0500 Systolic blood pressure 122 mm[Hg] Alomu Nayak ([facility]) [place] [employer] website [facility], [employer], Inc..; [employer]. 08-24-2017 09:47-0500 Body height 177.8 cm Gaby Mathias RN [place] [employer] website [facility].; [employer]. 08-24-2017 09:47-0500 Body mass index (BMI) [Ratio] 33.43 kg/m2 Gaby Mathias RN [place] [employer] website [facility].; [employer]. 08-24-2017 09:47-0500 Body surface area Derived from formula 2.23 m2 Gaby Mathias RN [employer] [facility].; [employer]. 08-24-2017 09:47-0500 Body temperature 98.6 [degF] Gaby Mathias RN [place] [employer] website [facility].; [employer]. 08-24-2017 09:47-0500 Body weight 105.69 kg Gaby Mathias RN [place] [employer] website [facility].; [employer]. 08-24-2017 09:47-0500 Diastolic blood pressure 76 mm[Hg] Gaby Mathias RN [facility].; [employer]. 08-24-2017 09:47-0500 Heart rate 74 /min Gaby Mathias RN [facility].; [employer]. 08-24-2017 09:47-0500 Systolic blood pressure 144 mm[Hg] Gaby Mathias RN [place] [employer] website [facility].; [employer] Inc. 03-13-2017 14:21-0400 Body height 177.8 cm Alo TrianaSaint Joseph Eastibe) [place] [employer] website [facility], Inc.; [employer]. 03-13-2017 14:21-0400 Body mass index (BMI) [Ratio] 31.85 kg/m2 Alo Nayak (Scribe) [employer] website [facility], Inc.; [employer]. 03-13-2017 14:21-0400 Body surface area Derived from formula 2.18 m2 Alomu Nayak (Scribe) [place] [employer] website [facility].; [employer]. 03-13-2017 14:21-0400 Body weight 100.7 kg Alomu Nayak (Scribe) [employer] [facility], Inc.; [employer]. 03-13-2017 14:21-0400 Diastolic blood pressure 84 mm[Hg] Alo TrianaScribe) [place] [employer] website [facility], Inc.; [employer]. 03-13-2017 14:21-0400 Heart rate 69 /min Alo TrianaScribjeny) [place] [employer] website [facility], Inc.; [employer]. 03-13-2017 14:21-0400 Systolic blood pressure 138 mm[Hg] Alo TrianaScribe) [employer] [facility], Inc.; CCBR-SYNARC, [employer], Inc.. 03-03-2017 10:57-0400 Body height 177.8 cm Alo Noguera) [place] [employer] website [facility], Inc.; [employer]. 03-03-2017 10:57-0400 Body mass index (BMI) [Ratio] 32.71 kg/m2 Alo Nayak (Scribe) [employer] 1, Inc.; [employer] [facility]. 03-03-2017 10:57-0400 Body surface area Derived from formula 2.21 m2 Alo Nael (Scribe) [facility], [facility].; [employer]. 03-03-2017 10:57-0400 Body weight 103.42 kg Alo Nayak (Scribe) [facility], Inc.; [employer]. 03-03-2017 10:57-0400 Diastolic blood pressure 78 mm[Hg] Alo Nayak (Scribe) [place] [employer] [facility], Inc.; [employer]. 03-03-2017 10:57-0400 Heart rate 62 /min Alo Nael (Scribe) [place] [employer] website [facility], Inc.; [employer]. 03-03-2017 10:57-0400 Systolic blood pressure 146 mm[Hg] Alo Nayak (Scribe) [place] [employer] website [facility], Inc.; [employer]. 08-15-2016 10:45-0500 Body height 177.8 cm Cindy K Mutersbaugh COMPUTER METHODS ANALYST [employer] website [facility]io [facility].; [employer]. 08-15-2016 10:45-0500 Body mass index (BMI) [Ratio] 32.43 kg/m2 Cindy K Mutersbaugh COMPUTER METHODS ANALYST [place] [employer] website [facility], Inc.; [employer]. 08-15-2016 10:45-0500 Body surface area Derived from formula 2.2 m2 Cindy K Mutersbaugh COMPUTER METHODS ANALYST [employer] [facility] HospitalMachinio Inc.; [employer]. 08-15-2016 10:45-0500 Body weight 102.51 kg Cindy K Mutersbaugh COMPUTER METHODS ANALYST [employer].; [employer]. 08-15-2016 10:45-0500 Diastolic blood pressure 86 mm[Hg] Cindy K Mutersbaugh COMPUTER METHODS ANALYST [employer] 1, Inc.; Clay[employer] 1, [employer], Inc.. 08-15-2016 10:45-0500 Heart rate 70 /min Cindy K Mutersbaugh COMPUTER METHODS ANALYST [employer] 1, Inc.; [employer]. 08-15-2016 10:45-0500 Systolic blood pressure 145 mm[Hg] Cindy K Mutersbaugh COMPUTER METHODS ANALYST [employer] [facility], Inc.; CCBR-SYNARC, Inc. 01-25-2016 13:03-0400 Body height 177.8 cm Cindy K Mutersbaugh COMPUTER METHODS ANALYST [employer] website [facility], Inc.; CCBR-SYNARC, Inc. 01-25-2016 13:03-0400 Body mass index (BMI) [Ratio] 31.42 kg/m2 Cindy K Mutersbaugh COMPUTER METHODS ANALYST [employer] [facility], Inc.; CC[employer]-SYNARC, Inc. 01-25-2016 13:03-0400 Body surface area Derived from formula 2.17 m2 Cindy K Mutersbaugh COMPUTER METHODS ANALYST [employer] 1, Inc.; [employer]-SYNARC, Inc. 01-25-2016 13:03-0400 Body weight 99.34 kg Cindy K Mutersbaugh COMPUTER METHODS ANALYST [employer] 1, Inc.; CCBR-SYNARC, Inc. 01-25-2016 13:03-0400 Diastolic blood pressure 83 mm[Hg] Cindy K Mutersbaugh COMPUTER METHODS ANALYST Clay[employer] 1, Inc.; CCBR-SYNARC, Inc. 01-25-2016 13:03-0400 Heart rate 57 /min Cindy K Mutersbaugh [place] [facility] [employer], Inc.; CCBR-SYNARC, [employer], Inc.. 01-25-2016 13:03-0400 Systolic blood pressure 107 mm[Hg] Cindy K Mutersbaugh COMPUTER METHODS ANALYST Clay[employer] 1, Inc.; CCBR-SYNARC, Inc. 10-08-2015 10:56-0500 Body height 177.8 cm [facility], Inc.; CCBR-SYNARC, [employer], Inc.. 10-08-2015 10:56-0500 Body mass index (BMI) [Ratio] 32.57 kg/m2 [facility], Inc.; CCBR-SYNARC, [employer], Inc.. 10-08-2015 10:56-0500 Body surface area Derived from formula 2.2 m2 [facility]In[facility], Inc.; CCBR-SYNARC, [employer], Inc.. 10-08-2015 10:56-0500 Body weight 102.97 kg [facility] Anderson[facility] 1, Inc.; CCBR-SYNARC, Inc. 10-08-2015 10:56-0500 Diastolic blood pressure 78 mm[Hg] Gris Reyes [place] [facility] [employer] [facility], Inc.; CC[employer]-SYNARC, Inc. 10-08-2015 10:56-0500 Heart rate 72 /min Gris Reyes [place] [facility] [employer]In[employer] [facility], Inc.; CC[employer]-SYNARC, Inc. 10-08-2015 10:56-0500 Systolic blood pressure 160 mm[Hg] Gris Reyes [place] [facility] [employer]In[employer] [facility], Inc.; CCBR-SYNARC, Inc. 04-09-2015 10:44-0400 Body height 177.8 cm Rox Stareky COMPUTER METHODS ANALYST [employer] [facility], Inc.; CCBR-SYNARC, Inc. 04-09-2015 10:44-0400 Body mass index (BMI) [Ratio] 31.71 kg/m2 Rox Starkey [place] [facility] [employer]In[employer] [facility], Inc.; CCBR-SYNARC, Inc. 04-09-2015 10:44-0400 Body surface area Derived from formula 2.18 m2 Rox Starkey COMPUTER METHODS ANALYST [employer] [facility], Inc.; CCBR-SYNARC, [employer], Inc.. 04-09-2015 10:44-0400 Body weight 100.25 kg Rox Starkey [place] [employer], Inc.; CC[employer]-SYNARC, Inc. 04-09-2015 10:44-0400 Diastolic blood pressure 73 mm[Hg] Rox Starkey [place] [facility] [employer] SSDIn[facility], Inc.; CCBR-SYNARC, Inc. 04-09-2015 10:44-0400 Heart rate 65 /min Rox Starkey COMPUTER METHODS ANALYST Clay[employer] 1, Inc.; CCBR-SYNARC, [employer], Inc.. 04-09-2015 10:44-0400 Systolic blood pressure 141 mm[Hg] Rox Starkey [place] [employer], Inc.; CCBR-SYNARC, [employer], Inc.. 02-12-2015 08:08-0400 Body height 177.8 cm Amanda Guzman MD Work Phone: [employer].; CCBR-SYNARC, [employer], [employer].. 02-12-2015 08:08-0400 Body mass index (BMI) [Ratio] 31.14 kg/m2 Amanda Guzman MD Work Phone: [employer].; [employer]. 02-12-2015 08:08-0400 Body surface area Derived from formula 2.16 m2 Amanda Guzman MD Work Phone: [employer].; [employer]. 02-12-2015 08:08-0400 Body weight 98.43 kg Amanda Guzman MD Work Phone: [employer].; [employer]. 02-12-2015 08:08-0400 Diastolic blood pressure 86 mm[Hg] Amanda Guzman MD Work Phone: [employer].; [employer]. 02-12-2015 08:08-0400 Heart rate 65 /min Amanda Guzman MD Work Phone: [employer].; [employer]. 02-12-2015 08:08-0400 Systolic blood pressure 128 mm[Hg] Amanda Guzman MD Work Phone: [employer].; [employer]. 12-30-2014 12:23-0400 Body height 177.8 cm Amanda Guzman MD Work Phone: [employer].; [employer]. 12-30-2014 12:23-0400 Body mass index (BMI) [Ratio] 31.32 kg/m2 Amanda Guzman MD Work Phone: [employer].; [employer]. 12-30-2014 12:23-0400 Body surface area Derived from formula 2.17 m2 Amanda Guzman MD Work Phone: [employer].; [employer]. 12-30-2014 12:23-0400 Body weight 99 kg Amanda Guzman MD Work Phone: [employer].; [employer]. 12-30-2014 12:23-0400 Diastolic blood pressure 84 mm[Hg] Amanda Guzman MD Work Phone: [employer].; [employer] 12-30-2014 12:23-0400 Heart rate 64 /min Amanda Guzman MD Work Phone: [employer].; CCBR-SYNARC, Inc. 12-30-2014 12:23-0400 Systolic blood pressure 152 mm[Hg] Amanda Guzman MD Work Phone: [employer].; CCBR-SYNARC, Inc. 06-16-2014 11:03-0400 Body height 177.8 cm Ronald Bateman MD Work Phone: [employer].; CCBR-SYNARC, Inc. 06-16-2014 11:03-0400 Body mass index (BMI) [Ratio] 30.56 kg/m2 Ronald Bateman MD Work Phone: [employer].; [employer]. 06-16-2014 11:03-0400 Body surface area Derived from formula 2.14 m2 Ronald Bateman MD Work Phone: [employer].; CCBR-SYNARC, Inc. 06-16-2014 11:03-0400 Body weight 96.62 kg Ronald Bateman MD Work Phone: [employer].; CCBR-SYNARC, Inc. 06-16-2014 11:03-0400 Diastolic blood pressure 80 mm[Hg] Ronald Bateman MD Work Phone: [employer].; [employer]. 06-16-2014 11:03-0400 Heart rate 73 /min Ronald Bateman MD Work Phone: [employer].; [employer]. 06-16-2014 11:03-0400 Systolic blood pressure 142 mm[Hg] Ronald Bateman MD Work Phone: [employer].; CCBR-SYNARC, Inc. 05-30-2014 10:45-0400 Body height 177.8 cm Rox Starkey LPN [employer].; [employer]. 05-30-2014 10:45-0400 Body mass index (BMI) [Ratio] 30.71 kg/m2 Rox Starkey LPN [employer]SYNARC, Inc.; CC[employer]-SYNARC, Inc. 05-30-2014 10:45-0400 Body surface area Derived from formula 2.15 m2 Rox Starkey LPN CC[employer]-SYNARC, Inc.; CC[employer]-SYNARC, Inc. 05-30-2014 10:45-0400 Body weight 97.07 kg Rox Starkey LPN [employer] 1, Inc.; CCBR-SYNARC, Inc. 05-30-2014 10:45-0400 Diastolic blood pressure 97 mm[Hg] Rox Starkey LPN CCBR-SYNARC, Inc.; CCBR-SYNARC, Inc. 05-30-2014 10:45-0400 Heart rate 68 /min Rox Starkey LPN [employer] 1, Inc.; CCBR-SYNARC, Inc. 05-30-2014 10:45-0400 Systolic blood pressure 169 mm[Hg] Rox Starkey LPN CC[employer]-SYNARC, Inc.; CC[employer]-SYNARC, Inc. 12-16-2013 13:30-0400 Body weight 99.79 kg Ronald Bateman MD Work Phone: [employer].; CCBR-SYNARC, Inc. 12-16-2013 13:30-0400 Diastolic blood pressure 92 mm[Hg] Ronald Bateman MD Work Phone: [employer].; CC[employer]-SYNARC, Inc. 12-16-2013 13:30-0400 Heart rate 65 /min Ronald Bateman MD Work Phone: [employer].; CC[employer]-SYNARC, Inc. 12-16-2013 13:30-0400 Systolic blood pressure 162 mm[Hg] Ronald Bateman MD Work Phone: [employer].; CCBR-SYNARC, Inc. 06-17-2013 10:30-0400 Body weight 99.34 kg Ronald Bateman MD Work Phone: [employer].; CC[employer]-SYNARC, Inc. 06-17-2013 10:30-0400 Diastolic blood pressure 78 mm[Hg] Ronald Bateman MD Work Phone: [place] [employer] website [facility].; [employer]. 06-17-2013 10:30-0400 Heart rate 71 /min Ronald Bateman MD Work Phone: [place] [employer]. 06-17-2013 10:30-0400 Systolic blood pressure 148 mm[Hg] Ronald Batemna MD Work Phone: [employer].; [employer]. 09-05-2012 11:09-0500 Body height 177.8 cm Gris Reyes [facility] Fan[employer] website [facility], [employer], [employer]..; CCBR-SYNARC, [employer], [employer].. 09-05-2012 11:09-0500 Body mass index (BMI) [Ratio] 31.57 kg/m2 [facility] Amy [facility] Fan[employer] website [facility], Inc.; CCBR-SYNARC, [employer], Inc.. 09-05-2012 11:09-0500 Body surface area Derived from formula 2.17 m2 Debby Amy [facility] Fan[employer] website [facility], [employer], [employer]..; CCBR-SYNARC, [employer], Inc.. 09-05-2012 11:09-0500 Body temperature 98.3 [degF] Gris Reyes [facility] Fan[employer] website [facility], Inc.; CCBR-SYNARC, [employer], Inc.. 09-05-2012 11:09-0500 Body weight 99.79 kg Debby Amy [facility] Fan[employer] website [facility], [employer], [employer]..; CCBR-SYNARC, [employer], [employer].. 09-05-2012 11:09-0500 Diastolic blood pressure 82 mm[Hg] Gris Reyes [facility] Fan[employer] website [facility], [employer], [employer]..; [employer]. 09-05-2012 11:09-0500 Heart rate 65 /min Debby Amy [facility] Fan[employer] website [facility], [employer], [employer]..; [employer]. 09-05-2012 11:09-0500 Inhaled oxygen concentration 20 % [facility] Amy [facility] Fan[employer] website [facility], Inc.; [employer]. 09-05-2012 11:09-0500 SaO2% (BldA) [Mass fraction] 98 % [facility] AndersonTalkApolis Inc.; [employer]. 09-05-2012 11:09-0500 Systolic blood pressure 165 mm[Hg] [facility] AndersonTalkApol[facility] Inc.; [employer] 08-09-2012 10:19-0500 Body height 177.8 cm Ronald Bateman MD Work Phone: [employer].; [employer] 08-09-2012 10:19-0500 Body mass index (BMI) [Ratio] 31.42 kg/m2 Ronald Bateman MD Work Phone: [employer].; [employer]. 08-09-2012 10:19-0500 Body surface area Derived from formula 2.17 m2 Ronald Bateman MD Work Phone: [employer].; [employer]. 08-09-2012 10:19-0500 Body weight 99.34 kg Ronald Bateman MD Work Phone: [employer].; [employer]. 08-09-2012 10:19-0500 Diastolic blood pressure 80 mm[Hg] Ronald Bateman MD Work Phone: [employer].; [employer]. 08-09-2012 10:19-0500 Heart rate 63 /min Ronald Bateman MD Work Phone: [employer].; [employer]. 08-09-2012 10:19-0500 Systolic blood pressure 152 mm[Hg] Ronald Bateman MD Work Phone: [employer].; [employer]. 02-15-2012 10:25-0400 Body height 177.8 cm Ronald Bateman MD Work Phone: [employer].; [employer]. 02-15-2012 10:25-0400 Body mass index (BMI) [Ratio] 31.28 kg/m2 Ronald Bateman MD Work Phone: [employer].; [employer] 02-15-2012 10:25-0400 Body surface area Derived from formula 2.17 m2 Ronald Bateman MD Work Phone: [employer].; CCBR-SYNARC, Inc. 02-15-2012 10:25-0400 Body weight 98.88 kg Ronald Bateman MD Work Phone: [employer].; [employer] 02-15-2012 10:25-0400 Diastolic blood pressure 84 mm[Hg] Ronald Bateman MD Work Phone: [employer].; CCBR-SYNARC, Inc. 02-15-2012 10:25-0400 Heart rate 58 /min Ronald Bateman MD Work Phone: [employer].; CCBR-SYNARC, Inc. 02-15-2012 10:25-0400 Systolic blood pressure 128 mm[Hg] Ronald Bateman MD Work Phone: [employer].; CC[employer]-SYNARC, Inc. 01-28-2011 13:09-0400 Body weight 96.16 kg Edna Faria LPN [employer].; CC[employer]-SYNARC, Inc. 01-28-2011 13:09-0400 Diastolic blood pressure 81 mm[Hg] Edna Faria LPN [employer].; CCBR-SYNARC, Inc. 01-28-2011 13:09-0400 Heart rate 62 /min Edna Faria LPN [employer].; CCBR-SYNARC, Inc. 01-28-2011 13:09-0400 Systolic blood pressure 164 mm[Hg] Edna Faria LPN [employer].; [employer]. 11-08-2010 12:09-0500 Body weight 95.26 kg Ronald Bateman MD Work Phone: [employer].; CCBR-SYNARC, Inc. 11-08-2010 12:09-0500 Diastolic blood pressure 95 mm[Hg] Ronald Bateman MD Work Phone: [employer] 11-08-2010 12:09-0500 Heart rate 71 /min Ronald Bateman MD Work Phone: [employer] 11-08-2010 12:09-0500 Systolic blood pressure 175 mm[Hg] Ronald Bateman MD Work Phone: [employer] 10-04-2010 16:47-0500 Body temperature 98 [degF] Montserrat Chong [facility] [employer] 10-04-2010 16:47-0500 Body weight 97.07 kg Montserrat Chong [facility] [employer] 10-04-2010 16:47-0500 Diastolic blood pressure 92 mm[Hg] Montserrat Chong LPN [employer] 10-04-2010 16:47-0500 Heart rate 70 /min Montserrat Chong LPN [employer] 10-04-2010 16:47-0500 Systolic blood pressure 191 mm[Hg] Montserrat Chong [facility] [employer] Encounters Encounter Date Encounter Type Care Provider Facility Start: 11-01-2023 End: 11-01-2023 Kaylin Hui PA-C Work Phone: [employer]. 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 Amanda Guzman MD [...] Provider Unknown H/O: gastrostomy Judy Zau gg COMPUTER METHODS ANALYST H/O: gastrostomy Kaylin Pal miguel PA-C Work Phone: Implantation of auto matic cardiac defibrillator Alexa Vieyra [place] Incision of trachea Referrin g Provider Unknown Insertion of pulse g enerator of implantable cardioverter defibrillator Referring Provider Unknown Plan of Treatment Date Care Activity Detail Author Start: 11-26-2025 DIABETES SCREEN DIABETES SCREEN [facility] Start: 11-26-2025 Diabetes Screening Diabetes Screening [facility] Start: 05-27-2025 DTaP/Tdap/Td Vaccines (2 - Td or Tdap) DTaP/Tdap/Td Vaccines (2 - Td or Tdap) [facility] Start: 05-16-2024 DIABETES SCREEN DIABETES SCREEN [facility] Start: 02-27-2024 End: 02-27-2024 Patient encounter procedure 02/27/2024 1:00 PM EDT Office Visit [facility] [address] [phone] Steff Muhammad MD [address] [address] [facility] Start: 09-28-2023 End: 09-28-2023 Patient encounter procedure 09/28/2023 1:30 PM EST Office Visit [facility] [address] [phone] Steff Muhammad MD [address] [address] [facility] Start: 08-30-2023 End: 11-29-2023 CREATININE BLD CREATININE BLD Lab Routine Chronic pancreatitis, unspecified pancreatitis type (HCC) Expected: 08/30/2023, Expires: 11/29/2023 [facility] Work Phone: Immunizations Immunization Date Immunization Notes Care Provider Navi morrissey 08-26-2022 Kaylin Hui PA-C Work Phone: [facility] [employer] [facility] 08-26-2022 influenza virus vaccine, unspecified formulation Steff Muhammad MD Work Phone: [facility] 07-27-2021 Moderna COVID-19 Vaccine 100 MCG/0.5ML Intramuscular Suspension Referring Provider Unknown TO-Ggvbuyv-Jxoldp l 2100 Work Phone: 07-26-2021 Kaylin Hui PA-C Work Phone: [facility]. 07-13-2021 Fluzone High-Dose Quadrivalent 0.7 ML Intramuscular Suspension Prefilled Syringe Referring Provider Unknown GR-Tgzsayn-Vywnjv l 2100 Work Phone: 07-13-2021 pneumococcal polysaccharide vaccine, 23 valent Referring Provider Unknown ZD-Inhnhxc-Hmdnyk l 2100 Work Phone: 12-03-2020 Moderna COVID-19 Vaccine 100 MCG/0.5ML Intramuscular Suspension Referring Provider Unknown [facility]. 11-05-2020 Moderna COVID-19 Vaccine 100 MCG/0.5ML Intramuscular Suspension Referring Provider Unknown [place] [employer] [facility] [employer] [facility] 07-30-2020 zoster vaccine recombinant Sonu Riojas MD Work Phone: [facility] 07-16-2020 influenza, high dose seasonal, preservative-free Kaylin Hui PA-C Work Phone: [employer] [facility] [employer] 07-16-2020 influenza, high-dose , quadrivalent vaccine (FLUZONE HIGH DOSE QUADRIVALENT) Sonu Riojas MD Work Phone: [facility] 04-17-2020 zoster vaccine recombinant Sonu Riojas MD Work Phone: [facility] 08-02-2019 influenza, injectabl e, quadrivalent, contains preservative Sonu Riojas MD Work Phone: [facility] 09-14-2018 pneumococcal conjuga te vaccine, 13 valent Sonu Riojas MD Work Phone: [facility] 06-26-2018 influenza, injectabl e, quadrivalent, contains preservative Referring Provider Unknown [facility] 11-17-2017 influenza, high dose seasonal, preservative-free Sonu Riojas MD Work Phone: [facility] 05-27-2015 tetanus toxoid, redu thea diphtheria toxoid, and acellular pertussis vaccine, adsorbed Kaylin Hui PA-C Work Phone: [facility] NEGATED: Highlighted row has not occurred!05-16-2021 pneumococcal polysaccharide vaccine, 23 valent Sonu Riojas MD Work Phone: [facility] NEGATED: Highlighted row has not occurred! influenza, seasonal, injectable Kyalin Hui PA-C Work Phone: [facility]. Payers Date Payer Category Payer Unknown ANGELA MILLER [place] DICARE SUPPLEMENT [id number] 2020-Present [phone] [address] [place] [address] Indemnity [id number] 2019 Unknown 2019 Unknown [id number] 2018 Private Health Insurance 2017 Medicare MEDICARE MEDICAR E A AND B [id number] 2017-Present [phone] [address] [address] [place] [address] Medicare [id number] 2017 Medicare [id number] 2017 Medicare [id number] 1950 Unknown [id number] 1950 Unknown [id number] 1950 Unknown [id number] 1950 Unknown [id number] 1950 Unknown [id number] 1950 Unknown [id number] 1950 Unknown [id number] Private Health Insurance [id number] Social History Date Type Detail Facility Tobacco smoking stat [facility] Unknown if ever smoked [facility] Start: 1950 Sex Assigned At Not on file [facility] Start: 05-03-2017 End: 07-27-2022 Tobacco smoking status ALIS Ex-smoker [facility] Work Phone: End: 05-03-2007 History of tobacco use Current smoker [facility] Work Phone: End: 05-03-2007 History of tobacco use Cigarette Smoker [facility] Work Phone: Start: 05-03-2017 End: 04-12-2023 Tobacco use and exposure Smokeless tobacco non-user [facility] Work Phone: Start: 06-16-2021 End: 09-28-2023 Alcohol intake Current drinker of alcohol (finding) [facility] Start: 06-16-2021 End: 04-12-2023 Alcohol intake [facility] Start: 07-14-2020 End: 07-27-2022 Tobacco Comment social smoker. [facility] Start: 1950 Sex Assigned At Male [facility] Start: 01-30-2022 End: 04-19-2023 Exposure to SARS-CoV-2 (event) Not sure [facility] Tobacco smoking consumption unknown [facility] Start: 09-27-2022 End: 04-12-2023 Tobacco use panel [facility] Start: 02-08-2021 Gender identity Identifies as male gender (finding) [facility] Start: 02-08-2021 Sexual orientation Heterosexual (finding) [facility] Start: 04-12-2023 Tobacco smoking status NHIS Never smoked tobacco [facility] National Score (1-10 0), lower number is lower risk 50 [facility] Never smoker. [facility].; [facility] Medical Equipment Procedure Code Equipment Code Equipment Origin al Text Equipment Identifier Dates Kit Ponsky 20fr Silicone Peg Pull Method Safety Sterile - [id number] Start: 10-31-2017 Tube Bivona Tts 10.5mm 7.5mm Silicone 80mm Tracheostomy Cuffed Adult - [id number] Start: 10-31-2017 Clinical Notes 09-25-2017 to 09-29-2023 Steff Muhammad MD - 09/28/2023 1:30 PM ESTAddendum Note - Steff Muhammad MD - 09/28/2023 1:30 PM ESTAddendum Note - Steff Muhammad MD - 09/28/2023 1:30 PM Magi Stallings - 04/21/2023 8:37 AM EDT Note Date & Type Note Facility 09-29-2023 Note HNO ID: [id number] Author: AMANDA ADAMS MD Service: ? Author [...] visit. Either the patient or their legal it sales representative has been informed of the risks [...] Low Je Adams MD B surgery Pager: [phone] [facility] 09-28-2023 Note Addended by: STEFF MUHAMMAD on: 09/28/2023 02:10 PM Modules accepted: Orders [facility] 09-28-2023 History of Present illness Narrative Images from the original note were not included. [facility] [address] [facility] [address] Dept: [phone] Dept Loc: [phone] Steff Muhammad MD CHIEF COMPLAINT: Chief Complaint [...] , Rfl: ergocalciferol (Vitamin D2) 1.25 MG (75364 UT) capsule, Take by mouth once a [...] , Rfl: ergocalciferol (Vitamin D-2) 1.25 MG (56548 UT) capsule, Take 1.25 mg by mouth [...] EEG Com MR MRA BRAIN OR NECK [place] [address] Patient: AMANDA KINNEY Phone#: : 1950 Age: 64 Gender: M Pt. Type: Out Account: [id number] Location: [facility] Ordering: ANIYA LOTT Exam Date: 06/24/2015/10:00 Family Phys: AMANDA GUZMAN Charge Code: [id number] Physician: Bowman Order #: [id number] DLP Dose#: PROCEDURE: MR ANGIOGRAPHY BRAIN WITHOUT [...] 64 Gender: M Pt. Type: Out Account: [id number] Location: [facility] Ordering: ANIYA LOTT Exam Date: 06/24/2015/10:0 [facility] RADIOLOGY REPORT Patient name: NIRMAL SCHNEIDER TranscrpIN: BRISA Acct number: [id number] Age: 60 Sex: MFinancial Class: CB2 date: 1950Stay type: O/PMed Rec Num: [id number] Admit date: 03/05/11Room: X-ray number:[id number] Disch date: 03/05/11Phone: Location: Admit Phys: JB FAJARDOOrder Num: [id number] Physician 2 : Ordering Phy: JB Dumont Phys: MR MRI BRAIN W/O CONTRAST [id number] COMPLETE:03/05/11 13:37 JLW [id number] (REASON FOR TEST: ANEURYSM OR TUMOR *corrections, [...] 03.07.11 MR MRA BRAIN OR NECK WO [facility] RADIOLOGY REPORT Patient name: NIRMAL SCHNEIDER TranscrpIN: BRISA Acct number: [id number] Age: 60 Sex: MFinancial Class: CB2 date: 1950Stay type: O/PMed Rec Num: [id number] Admit date: 03/05/11Room: X-ray number:[id number] Disch date: 03/05/11Phone: Location: Admit Phys: JB FAJARDOOrder Num: [id number] Physician 2 : Ordering Phy: JB Dumont Phys: MR MRA BRAIN OR NECK WO CONTR [id number] COMPLETE:03/05/11 13:37 JLW [id number] (REASON FOR TEST: ANEURYSM OR TUMOR Unsigned transcriptions represent a preliminary report and do not reflect *corrections, additions and/or subtractions to the information c ontained in this report.* RADIOLOGY REPORT CLOSE R WYATT 1 \CNTo\ MRA OF THE BRAIN Images were obtained in multiple phases without contrast. The carotid and basilar artery are normal in caliber. [place] is unremarkable in configuration. [...] Exam End: -- Specimen Collected: 11/03/17 13:43 [facility] Bedside Video EEG Monitoring Patient: Amanda Kinney - [id number] Date: 04 Nov 2017 Requested by: Ramesh [...] 11/04/17 Last Resulted: 11/05/17 11:02 Received From: [facility] Result Received: 04/11/23 22:23 CBC: No [...] TSH VITAMIN B12: No results found for: [id number] FERRITIN: No results found for: FERRITIN ---- [...] , Rfl: ergocalciferol (Vitamin D-2) 1.25 MG (04774 UT) capsule, Take 1.25 mg by mouth [...] electrodes were positioned in person by an imaging technologist, following patient education, according to the 10-20 International system of electrode placement and maintained for integrity and quality of the recording. EEG data with video was recorded continuously and digitally stored. The imaging technologist reviewed all automated detections and manual [...] IMMUNOGLOBUL , OLIGOBANDS No results found for: [id number] , HEPCAB No results found for: CRP [...] Morin. 40 minutes documented in this encounter [facility] 09-28-2023 Miscellaneous Notes Addended by: STEFF MUHAMMAD on: 09/28/2023 02:10 PM Modules accepted: Orders documented in this encounter [facility] 09-28-2023 Note Addended by: STEFF MUHAMMAD on: 09/28/2023 02:10 PM Modules accepted: Orders [facility] 09-28-2023 Note Addended by: STEFF MUHAMMAD on: 09/28/2023 02:10 PM Modules accepted: Orders [facility] 09-16-2023 Note . MICRO - [...] Order Comments O1: Blood Culture (bacterial) fax [phone] Performing Locations *1: This test was performed at: [facility], [address] [place] [address], [address] , [facility] ([place]) 08-31-2023 Note HNO ID: [id number] Author: Gaby Chris RT(R) Service: ? Author Type: Curatorial Specialist Type: Progress Notes Filed: 08/31/2023 3:14 PM [...] DATE: August 31, 2023 TIME: 3:13 PM [facility] 08-31-2023 History of Present illness Narrative Radiology [...] TIME: 3:13 PM documented in this encounter [facility] 08-29-[address] Please [address] order for stat creatinine order for pt , pt appt 08/31/[address] I will call pt when it is placed documented in this encounter [facility] 06-20-2023 History of Present illness Narrative Images from the original note were not included. [facility] [address] [facility] [address] Dept: [phone] Dept Loc: [phone] Steff Muhammad MD Patient was seen today [...] stated that they are currently in the [facility]. If the patient is a minor, permission [...] , Rfl: ergocalciferol (Vitamin D-2) 1.25 MG (66107 UT) capsule, Take 1.25 mg by mouth [...] EEG Com MR MRA BRAIN OR NECK [place] [address] Patient: AMANDA KINNEY Phone#: : 1950 Age: 64 Gender: M Pt. Type: Out Account: [id number] Location: [facility] Ordering: ANIYA LOTT Exam Date: 06/24/2015/10:00 Family Phys: AMANDA GUZMAN Charge Code: [id number] Physician: Bowman Order #: [id number] DLP Dose#: PROCEDURE: MR ANGIOGRAPHY BRAIN WITHOUT [...] 64 Gender: M Pt. Type: Out Account: [id number] Location: [facility] Ordering: ANIYA LOTT Exam Date: 06/24/2015/10:0 [facility] RADIOLOGY REPORT Patient name: NIRMAL SCHNEIDER TranscrpIN: BRISA Acct number: [id number] Age: 60 Sex: MFinancial Class: CB2 date: 1950Stay type: O/PMed Rec Num: [id number] Admit date: 03/05/11Room: X-ray number:[id number] Disch date: 03/05/11Phone: Location: Admit Phys: JB FAJARDOOrder Num: [id number] Physician 2 : Ordering Phy: JB Dumont Phys: MR MRI BRAIN W/O CONTRAST [id number] COMPLETE:03/05/11 13:37 [facility] [address] (REASON FOR TEST: ANEURYSM OR TUMOR *corrections, [...] name: NIRMAL SCHNEIDER TranscrpIN: BRISA Acct number: [id number] Age: 60 Sex: MFinancial Class: CB2 date: 1950Stay type: O/PMed Rec Num: [id number] Admit date: 03/05/11Room: X-ray number:[id number] Disch date: 03/05/11Phone: Location: Admit Phys: JB FAJARDOOrder Num: [id number] Physician 2 : Ordering Phy: JB Dumont Phys: MR MRA BRAIN OR NECK WO CONTR [id number] COMPLETE:03/05/11 13:37 JLW [id number] (REASON FOR TEST: ANEURYSM OR TUMOR Unsigned transcriptions represent a preliminary report and do not reflect *corrections, additions and/or subtractions to the information c ontained in this report.* RADIOLOGY REPORT NIRMAL SCHNEIDER 1 \CNTo\ MRA OF THE BRAIN Images were obtained in multiple phases without contrast. The carotid and basilar artery are normal in caliber. [place] is unremarkable in configuration. [...] Exam End: -- Specimen Collected: 11/03/17 13:43 [facility] Bedside Video EEG Monitoring Patient: Amanda Kinney - [id number] Date: 04 Nov 2017 Requested by: Ramesh [...] 11/04/17 Last Resulted: 11/05/17 11:02 Received From: [facility] Result Received: 04/11/23 22:23 CBC: No [...] TSH VITAMIN B12: No results found for: [id number] FERRITIN: No results found for: FERRITIN ---- [...] , Rfl: ergocalciferol (Vitamin D-2) 1.25 MG (91707 UT) capsule, Take 1.25 mg by mouth [...] electrodes were positioned in person by an imaging technologist, following patient education, according to the 10-20 International system of electrode placement and maintained for integrity and quality of the recording. EEG data with video was recorded continuously and digitally stored. The imaging technologist reviewed all automated detections and manual [...] IMMUNOGLOBUL , OLIGOBANDS No results found for: JUC75DY , HEPCAB No results found for: CRP , ANATITER , ANCA MRI at [facility] in April per report: Chronic small [...] arranging for studies. documented in this encounter [facility] 05-25-2023 Note Office received [facility] records request via fax from [facility]. Please see patient's chart. H&P, EEG report and Last progress note faxed today to [facility] to fax number- [phone]. [facility] 04-21-2023 Note HNO ID: [id number] Author: Magi Quintero Service: ? Author Type: ? Type: Progress Notes Filed: 04/21/2023 10:15 AM Note Text: HPB - OUTPATIENT CLINIC NOTE PATIENT NAME: Amanda Kinney DATE of SERVICE: April 21, 2023 TIME of SERVICE: 8:38 AM PCP: Kaylin Hui Mr. 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 PMHx includes DC s/p CABG, CAD, CHF, HTN, HLD and [...] Patient was seen as an outpatient at [facility] on 05/03/17 for this neuroendocrine tumor, at which time the recommendations were MRCP and follow-up in 6 months with imaging. The patient was subsequently lost to follow-up, and we have no records of an MRCP. 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 PMHx is remarkable for DC s/p CABG, CAD, CHF, HTN, HLD and [...] of the neuroend (more content not included)... [facility] 04-21-2023 History and physical note INITIAL PANCREATIC [...] 2018 Heart disease High cholesterol HTN (hypertension) DC, old 2013 no surgery, no stents PAST [...] of a pancreatic neuroendocrine tumor. PMHx includes DC s/p CABG, CAD, CHF, HTN, HLD and [...] Patient was seen as an outpatient at [facility] on 05/03/17 for this neuroendocrine tumor, at which time the recommendations were MRCP and follow-up in 6 months with imaging. The patient was subsequently lost to follow-up, and we have no records of an MRCP. 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 PMHx is remarkable for DC s/p CABG, CAD, CHF, HTN, HLD and [...] Magi Quintero, MS4 documented in this encounter [facility] 04-21-2023 Nurse Note What is the reason for your visit today? Consult Who is your referring physician? Dr. Adams Are you having poor oral intake? NO Have you had unintentional weight loss of 15 lbs/7 Kg in the last 3-6 months? NO Bowels: regular Wound: clean & dry Temperature: No Drains: No documented in this encounter [facility] 04-19-2023 Note EEG REPORT Patient Name: [...] , Rfl: ergocalciferol (Vitamin D-2) 1.25 MG (00072 UT) capsule, Take 1.25 mg by mouth [...] electrodes were positioned in person by an imaging technologist, following patient education, according to the 10-20 International system of electrode placement and maintained for integrity and quality of the recording. EEG data with video was recorded continuously and digitally stored. The imaging technologist reviewed all automated detections and manual [...] is a normal awake and asleep EEG. [facility] 04-19-2023 Procedure note Associated Ord er(s): [...] , Rfl: ergocalciferol (Vitamin D-2) 1.25 MG (72320 UT) capsule, Take 1.25 mg by mouth [...] electrodes were positioned in person by an imaging technologist, following patient education, according to the 10-20 International system of electrode placement and maintained for integrity and quality of the recording. EEG data with video was recorded continuously and digitally stored. The imaging technologist reviewed all automated detections and manual [...] a normal awake and asleep EEG. T [facility] 04-19-2023 Procedure note Associated Ord [...] , Rfl: ergocalciferol (Vitamin D-2) 1.25 MG (74500 UT) capsule, Take 1.25 mg by mouth [...] electrodes were positioned in person by an imaging technologist, following patient education, according to the 10-20 International system of electrode placement and maintained for integrity and quality of the recording. EEG data with video was recorded continuously and digitally stored. The imaging technologist reviewed all automated detections and manual [...] and asleep EEG. documented in this encounter [facility] 04-12-2023 History of Present illness Narrative Images from the original note were not included. [facility] [address] [facility] [address] [facility] [address] Dept: [phone] Dept Loc: [phone] Steff Muhammad MD Thank you for your [...] a past medical history of Cardiac arrest ([facility]), Congestive heart failure (CHF) ([facility]/HCC) ([facility]), Stroke ([facility]), and Syncope. Past Surgical History: [...] , Rfl: ergocalciferol (Vitamin D-2) 1.25 MG (20990 UT) capsule, Take 1.25 mg by mouth [...] EEG Com MR MRA BRAIN OR NECK [place] [address] Patient: AMANDA KINNEY Phone#: : 1950 Age: 64 Gender: M Pt. Type: Out Account: [id number] Location: [facility] Ordering: ANIYA LOTT Exam Date: 06/24/2015/10:00 Family Phys: AMANDA GUZMAN Charge Code: [id number] Physician: Bowman Order #: [id number] DLP Dose#: PROCEDURE: MR ANGIOGRAPHY BRAIN WITHOUT [...] 64 Gender: M Pt. Type: Out Account: [id number] Location: 010 Ordering: ANIYA LOTT Exam Date: 06/24/2015/10:0 [facility] RADIOLOGY REPORT Patient name: NIRMAL SCHNEIDER TranscrpIN: [facility] Acct number: [id number] Age: 60 Sex: MFinancial Class: CB2 date: 1950 type: O/PMed Rec Num: [id number] Admit date: 03/05/11Room: X-ray number:[id number] Disch date: 03/05/11Phone: Location: Admit Phys: JB FAJARDOOrder Num: [id number] Physician 2 : Ordering Phy: JB Dumont Phys: MR MRI BRAIN W/O CONTRAST [id number] COMPLETE:03/05/11 13:37 JLW [id number] (REASON FOR TEST: ANEURYSM OR TUMOR *corrections, [...] MR MRA BRAIN OR NECK WO CONTRAST [facility] RADIOLOGY REPORT Patient name: NIRMAL SCHNEIDER TranscrpIN: KLL Acct number: [id number] Age: 60 Sex: MFinancial Class: CB2 date: [address] type: O/PMed Rec Num: [id number] Admit date: 03/05/11Room: X-ray number:[id number] Disch date: 03/05/11Phone: Location: Admit Phys: JB FAJARDOOrder Num: [id number] Physician 2 : Ordering Phy: JB Dumont Phys: MR MRA BRAIN OR NECK WO CONTR [id number] COMPLETE:03/05/11 13:37 JLW [id number] (REASON FOR TEST: ANEURYSM OR TUMOR Unsigned transcriptions represent a preliminary report and do not reflect *corrections, additions and/or subtractions to the information c ontained in this report.* RADIOLOGY REPORT CLOSE R WYATT 1 \CNTo\ MRA OF THE BRAIN Images were obtained in multiple phases without contrast. The carotid and basilar artery are normal in caliber. [place] is unremarkable in configuration. [...] Exam End: -- Specimen Collected: 11/03/17 13:43 [facility] Bedside Video EEG Monitoring Patient: Amanda Kinney - [id number] Date: 04 Nov 2017 Requested by: Ramesh [...] 11/04/17 Last Resulted: 11/05/17 11:02 Received From: [facility] Result Received: 04/11/23 22:23 CBC: No [...] TSH VITAMIN B12: No results found for: [id number] FERRITIN: No results found for: FERRITIN ---- No results found for: PHENYTOIN, PHENOBARB, VALPROATE, CBMZ No components found for: TOPIRANo results found for: OXCARBAZE, OXCARB @LASTAPPOINTMENTTHISPROV@ No image results found. @RESULTINGLABINFO@ No results found for: LEVETIRACETA, FERRITIN, CRP, RIANA, ANCA No results found for: GERARD, IMMUNOGLOBUL, OLIGOBANDS No results found for: EZV58RC, HEPCAB No results found for: CRP, ANATITER, [...] arranging for studies. documented in this encounter [facility] 04-03-2023 Miscellaneous Notes Records and images request faxed to [facility] / [phone] Records scanned in from referring office. documented in this encounter [facility] 03-30-2023 Miscellaneous Notes Spoke with , device is MRI compatible. Pt does follow routinely in [place] per . She will have the facility doing the MRI to contact that clinic for the most updated device information as [facility] device clinic has not seen the patient since 2020. documented in this encounter [facility] 03-23-2023 Miscellaneous Notes Received referral fax for patient, scanned into epic. Pt needs referred to Filemon Adams at [facility] per Dr. Randhawa. Referral and physician info given to PSS for scheduling. Lorna Nath RN documented in this encounter [facility] 10-04-2022 Note HNO ID: [id number] Author: Sonu Riojas MD Service: ? Author Type: Physician Type: Progress Notes Filed: 10/04/2022 10:03 AM Note Text: pulm rehab [facility] 10-04-2022 Note HNO ID: [id number] Author: Montserrat De León Air Intelligence Specialist Service: ? Author Type: Air Intelligence Specialist Type: Progress Notes Filed: 10/04/2022 9:12 AM Note Text: Order for pulmonary rehabilitation faxed to [place] [facility] on 10/04/22 Montserrat De León MS, [facility] 10-04-2022 History of Present illness Narrative pulm rehab documented in this encounter [facility] 10-04-2022 History of Present illness Narrative Order for pulmonary rehabilitation faxed to [place] [facility] on 10/04/22 Montserrat De León MS, [facility] documented in this encounter [facility] 09-27-2022 History of Present illness Narrative [...] 2018 Heart disease High cholesterol HTN (hypertension) DC, old 2013 no surgery, no stents PAST [...] Sonu Riojas MD documented in this encounter [facility] 09-27-2022 History of Present illness Narrative PULM FUNCTION SMARTBLOCK: Provider: Sonu Riojas MD Spirometry: 1 6 MW: 1 System: MC6 - [id number] documented in this encounter [facility] 09-27-2022 Procedure note Associated Ord er(s): [...] TIME: 1:00 PM documented in this encounter [facility] 09-27-2022 History of Present illness Narrative [facility] Speech Pathology Consult Modified Barium Swallow 09/27/2022 [...] Dr. Rollins as needed Stephanie Barnhart M.S., CCC-BUILDING APPRAISER Clinical Speech Pathologist Pager: [phone] Voicemail: [phone] DIAGNOSIS / HISTORY: Amanda Kinney is a [...] 2018 Heart disease High cholesterol HTN (hypertension) DC, old 2013 no surgery, no stents PAST [...] / Barium mixture Pudding mixed with Barium [place] thick Barium liquid Thin Barium liquid LIQUIDS [...] Treatment Plan Date: 09/27/2022 Stephanie Barnhart M.S., CCC-BUILDING APPRAISER Clinical Speech Pathologist Pager: [phone] Voicemail: [phone] documented in this encounter [facility] 09-27-2022 History of Present illness Narrative [...] 2022 9:23 AM documented in this encounter [facility] 09-23-2022 History of Present illness Narrative IP Clinical Coordinator Pre-Visit Chart Review Date of Visit: 09/27/22 Type of Visit: Est Summary of Reason for Visit: Follow Up Needed Testing Prior to Visit: PFTs and barium swallow scheduled scheduled prior to visit; same day Notes: Vita Park MSN, RN, CCRN-K Interventional Pulmonary Clinical Coordinator documented in this encounter [facility] 07-27-2022 Nurse Note Tobacco Use: Quit 05/03/2007. Types: Cigarettes Was smoking cessation packet given? N/A - Patient is a non-smoker or quit >1 year ago. Was a referral initiated?N/A Patient is a non-smoker documented in this encounter [facility] 07-27-2022 History of Present illness Narrative [...] 2017 Heart disease High cholesterol HTN (hypertension) DC, old 2013 no surgery, no stents PAST [...] 4 - Moderate documented in this encounter [facility] 04-26-2022 History of Present illness Narrative Images from the original note were not included. Interventional Pulmonary Tile Picker Note OV Date: 05/10/22 Date of last visit: 03/15/22 RECOMMENDATION/PLAN FROM LAST VISIT Vita Park MSN, RN, CCRN-K Interventional Pulmonary Clinical Coordinator documented in this encounter [facility] 03-22-2022 History of Present illness Narrative [...] this note on to the consulting physician Tile Picker Follow up >FU OV set for 05/10/22 >Consult request to [place] and noted Vita Park MSN, RN, CCRN-K Interventional Pulmonary Clinical Coordinator documented in this encounter [facility] 03-15-2022 Miscellaneous Notes Spoke to patient and spouse, scheduled a established patient visit for 05/10/22 documented in this encounter [facility] 03-15-2022 History of Present illness Narrative [...] 2018 Heart disease High cholesterol HTN (hypertension) DC, old 2013 no surgery, no stents PAST [...] Sonu Riojas MD documented in this encounter [facility] 03-11-2022 History of Present illness Narrative Interventional Pulmonary Tile Picker Note OV Date: 03/15/22 Date of last [...] Pulmonary Clinical Coordinator documented in this encounter [facility] 02-18-2022 Miscellaneous Notes Images from the original note were not included. 02/18/22- Received and scanned in outside medical records documented in this encounter [facility] 02-09-2021 Note HNO ID: [id number] Author: Brenda Nath MD, PhD Service: ? [...] was 25 minutes. Brenda Nath MD, PhD [facility] 02-09-2021 Note HNO ID: [id number] Author: Brenda Nath MD, PhD Service: ? Author Type: Physician Type: Progress Notes Filed: 02/09/2021 4:54 PM Note Text: See dictation [facility] 02-09-2021 Note HNO ID: [id number] Author: Brenda Nath MD, PhD Service: Thoracic Surgery Author Type: Physician Type: Progress Notes Filed: 02/18/2021 12:29 PM Note Text: [facility] Progress Note [facility] [id number] PATIENT TYPE: [facility] LOCATION: [facility] ORIGINATOR: Brenda Nath M.D. DATE OF [...] from them to proceed to tracheal resection. [facility] DOC: [id number] This note was partially generated using an outside clinical research physician service, and there may be some incorrect words, spellings, phrases, and punctuation that were not noted in checking the note before saving. [facility] documented as of this encounter (statuses as of 02/18/2022) [facility] History of Past illness Narrative* Problem [...] of this encounter (statuses as of 03/11/2022) [facility] History of Past illness Narrative* Problem [...] of this encounter (statuses as of 03/15/2022) [facility] History of Past illness Narrative* Problem [...] of this encounter (statuses as of 03/15/2022) [facility] History of Past illness Narrative* Problem [...] of this encounter (statuses as of 03/22/2022) [facility] History of Past illness Narrative* Problem [...] of this encounter (statuses as of 04/26/2022) [facility] History of Past illness Narrative* Problem [...] of this encounter (statuses as of 07/27/2022) [facility] History of Past illness Narrative* Problem [...] of this encounter (statuses as of 08/16/2022) [facility] History of Past illness Narrative* Problem [...] of this encounter (statuses as of 09/28/2022) [facility] History of Past illness Narrative* Problem [...] of this encounter (statuses as of 09/29/2022) [facility] History of Past illness Narrative* Problem [...] of this encounter (statuses as of 09/29/2022) [facility] History of Past illness Narrative* Problem [...] of this encounter (statuses as of 09/29/2022) [facility] History of Past illness Narrative* Problem [...] of this encounter (statuses as of 09/29/2022) [facility] History of Past illness Narrative* Problem [...] of this encounter (statuses as of 10/04/2022) [facility] History of Past illness Narrative* Problem [...] of this encounter (statuses as of 10/04/2022) [facility] History of Past illness Narrative* Problem [...] of this encounter (statuses as of 10/17/2022) [facility] History of Past illness Narrative* Problem [...] of this encounter (statuses as of 03/23/2023) [facility] History of Past illness Narrative* Problem [...] of this encounter (statuses as of 03/30/2023) [facility] History of Past illness Narrative* Problem [...] of this encounter (statuses as of 04/03/2023) [facility] History of Past illness Narrative* Problem [...] of this encounter (statuses as of 04/21/2023) [facility] History of Past illness Narrative* Problem [...] of this encounter (statuses as of 08/30/2023) [facility] History of Past illness Narrative* Problem [...] of this encounter (statuses as of 09/01/2023) [facility] History of Present illness Narrative* Mr Kinney had open heart surgery in Sep 2017. He initially did well and on the day of discharge had VT VF arrest. This was then followed by long course that included cardiac ablation, MV, tracheostomy. He was in [place] [facility] and then SNF for several months. [...] breath, unable to bend over and breath, [id number]-[id number] [address] Work Phone: Chief complaint Narrative - ReportedPatient came in today accompanied by his for diaphragm evaluation. Shortness of breath KC-[id number]-[id number] [address] Work Phone: Evaluation note* Diagnosis Tracheal [...] Shortness of breath documented in this encounter [facility] note* Diagnosis Oropharyngeal dysphagia- Primary Dysphagia, oropharyngeal phase H/O: stroke Transient ischemic attack (TIA), and cerebral infarction without residual deficits Tracheal stenosis Other diseases of trachea and bronchus documented in this encounter [facility] note* Diagnosis Tracheal stenosis- Primary Other diseases of trachea and bronchus documented in this encounter [facility] note* Diagnosis Tracheal stenosis- Primary Other diseases of trachea and bronchus ALEXANDER (dyspnea on exertion) Other dyspnea and respiratory abnormality documented in this encounter [facility] note* Diagnosis Odynophagia Dysphagia, unspecified documented in this encounter [facility] note* Diagnosis Disease of lung- Primary Other diseases of lung, not elsewhere classified documented in this encounter [facility] note* Diagnosis Chronic obstructive pulmonary disease, unspecified COPD type (HCC)- Primary documented in this encounter [facility] note* Diagnosis Syncope and collapse- Primary Cough syncope Cough Other drug-induced secondary parkinsonism (HCC) documented in this encounter [facility] note* Diagnosis Syncope and collapse documented in this encounter [facility] note* Diagnosis Primary neuroendocrine tumor of pancreas- Primary documented in this encounter [facility] note* Diagnosis Syncope and collapse- Primary Parkinsonism, unspecified Parkinsonism type Cerebrovascular accident (CVA), unspecified mechanism (HCC) documented in this encounter [facility] note* Diagnosis Chronic pancreatitis, unspecified pancreatitis type (HCC)- Primary documented in this encounter [facility] note* Diagnosis Primary neuroendocrine tumor of pancreas documented in this encounter [facility] note* Diagnosis Cerebrovascular accident (CVA), unspecified mechanism (HCC)- Primary Gait disturbance Abnormality of gait Visual field loss following cerebrovascular accident documented in this encounter [facility] for referral (narrative)* Diagnostic Procedure Only (Routine) - Closed Specialty Diagnoses / Procedures Referred By Daisy dozier Referred To Contact XR IMAGING Diagnoses Odynophagia Procedures XR MODIFIED BARIUM SWALLOW W SPEECH THERAPY RADIOLOGIC EXAM SWALLOW FUNCTION CONTRAST STUDY [address] [place] [address] Xr Imaging Referral ID Status Reason Start Date Expiration Date V isits Requested Visits Authorized [id number] Closed Auto-Generate d Referral 07/27/2022 08/26/2023 1 1 [facility] for referral (narrative)* Consultation (Routine) - Pending Review Specialty Diagnoses / Procedures Referred By Contac t Referred To Contact Optometry Diagnoses Visual field loss following cerebrovascular accident Procedures [facility] OFFICE/OUTPATIENT NEW HIGH MDM 60 MINUTES Steff Muhammad MD [address] [place] [address] Eloy Morin, OD [address] [place] [address] Referral ID Status Reason Start Date Expiration Date Visits Requested Visits Authorized [id number] Pending Review Specialty Services Required 09/28/2023 09/27/2024 1 1 [facility] Purpose Family History Cerebrovascular [...] Documents on File Type Date Recorded 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 Advance Directive(s) 06/14/2021 1:48 PM Advance Directive(s) 04/13/2021 12:51 PM Advance Directive(s) 10/08/2017 3:33 PM Advance Directive(s) 03/23/2016 7:12 AM Advance Directive(s) 03/16/2016 12:30 PM Reason for Referral Specialty Diagnoses / Procedures Referred By Contac t Referred To Contact Neurology Diagnoses Cerebrovascular accident (CVA), unspecified mechanism (HCC) Procedures CONSULT TO NEUROLOGY OFFICE/OUTPATIENT [facility] 60-74 MINUTES [address] [place] [address] Referral ID Status Reason Start Date Expiration Date Visits Requested Visits Authorized [id number] Authorized PCP Requested Referral 07/27/2022 07/27/2023 1 1 Specialty Diagnoses / Procedures Referred By Contac t Referred To Contact XR IMAGING Diagnoses Odynophagia Procedures XR MODIFIED BARIUM SWALLOW W SPEECH THERAPY RADIOLOGIC EXAM SWALLOW FUNCTION CONTRAST STUDY [address] [place] [address] Xr Imaging Referral ID Status Reason Start Date Expiration Date Visits Requested Visits Authorized [id number] Pending Review Auto-Generat ed Referral 07/27/2022 08/26/2023 1 1 Specialty Diagnoses / Procedures Referred By Contac t Referred To Contact Radiology Diagnoses Syncope and collapse Procedures MR brain wo contrast Steff Muhammad MD [address] [place] [address] Referral ID Status Reason Start Date Expiration Date V isits Requested Visits Authorized [id number] Pending Review 04/12/2023 10/09/2023 1 1 Specialty Diagnoses / Procedures Referred By Contac t Referred To Contact Diagnoses Syncope and collapse Procedures EEG extended more than 1 hour Steff Muhammad MD [address] [place] [address] Referral ID Status Reason Start Date Expiration Date V isits Requested Visits Authorized [id number] Incomplete 04/12/2023 10/09/2023 1 1 Specialty Diagnoses / Procedures Referred By Contac t Referred To Contact Neurology Diagnoses Syncope and collapse Procedures EEG extended more than 1 hour Steff Muhammad MD [address] [place] [id number] Referral ID Status Reason Start Date Expiration Date Visits Re quested Visits Authorized [id number] Closed 04/12/2023 10/09/2023 1 1 Specialty Diagnoses / Procedures Referred By Contac t Referred To Contact CT IMAGING Diagnoses Primary neuroendocrine tumor of pancreas Procedures CT PANCREAS W IVCON CT ABDOMEN W/CONTRAST Amanda Adams MD [address] [place] [address] Ct Imaging Referral ID Status Reason Start Date Expiration Date Visits Requested Visits Authorized [id number] Pending Review Auto-Generat ed Referral 04/21/2023 05/20/2024 1 1 Specialty Diagnoses / Procedures Referred By Contac t Referred To Contact CT IMAGING Diagnoses Primary neuroendocrine tumor of pancreas Procedures CT PANCREAS W IVCON CT ABDOMEN W/CONTRAST Amanda Adams MD [address] [place] [address] Ct Imaging [place] [address] Referral ID Status Reason Start Date Expiration Date V isits Requested Visits Authorized [id number] Closed Auto-Generate d Referral 04/21/2023 05/20/2024 1 [...] DATE CREATED AUTHOR AUTHOR'S ORGANIZ ATION 05/15/2018 [facility] DATE CREATED AUTHOR AUTHOR'S ORGANIZ ATION 02/21/2021 [facility] DATE CREATED AUTHOR AUTHOR'S ORGANIZ ATION 03/15/2022 [employer] DATE CREATED AUTHOR AUTHOR'S ORGANIZ ATION 04/25/2022 [facility] DATE CREATED AUTHOR AUTHOR'S ORGANIZ ATION 11/29/2022 [facility] DATE CREATED AUTHOR AUTHOR'S ORGANIZ ATION 08/05/2023 [facility] DATE CREATED AUTHOR AUTHOR'S ORGANIZ ATION 09/17/2023 [facility] ([place] DATE CREATED AUTHOR AUTHOR'S ORGANIZ ATION 09/26/2023 [facility] DATE CREATED AUTHOR AUTHOR'S ORGANIZ ATION 09/30/2023 [facility] DATE CREATED AUTHOR AUTHOR'S ORGANIZ ATION 09/30/2023 [facility] Source Comments (unrecognize d section and content) In the event this informatio n is protected by the Federal Confidentiality of Alcohol and Drug Abuse Patient Records regulations: The Federal rules restrict any use of the information to criminally investigate or prosecute any alcohol or drug abuse patient.[facility] the event this information is protected by the Federal Confidentiality of Alcohol and Drug Abuse Patient Records regulations: The Federal rules restrict any use of the information to criminally investigate or prosecute any alcohol or drug abuse patient.[facility] the event this information is protected by the Federal Confidentiality of Alcohol and Drug Abuse Patient Records regulations: The Federal rules restrict any use of the information to criminally investigate or prosecute any alcohol or drug abuse patient.[facility] the event this information is protected by the Federal Confidentiality of Alcohol and Drug Abuse Patient Records regulations: The Federal rules restrict any use of the information to criminally investigate or prosecute any alcohol or drug abuse patient.[facility] the event this information is protected by the Federal Confidentiality of Alcohol and Drug Abuse Patient Records regulations: The Federal rules restrict any use of the information to criminally investigate or prosecute any alcohol or drug abuse patient.[facility] the event this information is protected by the Federal Confidentiality of Alcohol and Drug Abuse Patient Records regulations: The Federal rules restrict any use of the information to criminally investigate or prosecute any alcohol or drug abuse patient.[facility] the event this information is protected by the Federal Confidentiality of Alcohol and Drug Abuse Patient Records regulations: The Federal rules restrict any use of the information to criminally investigate or prosecute any alcohol or drug abuse patient.[facility] the event this information is protected by the Federal Confidentiality of Alcohol and Drug Abuse Patient Records regulations: The Federal rules restrict any use of the information to criminally investigate or prosecute any alcohol or drug abuse patient.[facility] the event this information is protected by the Federal Confidentiality of Alcohol and Drug Abuse Patient Records regulations: The Federal rules restrict any use of the information to criminally investigate or prosecute any alcohol or drug abuse patient.[facility] the event this information is protected by the Federal Confidentiality of Alcohol and Drug Abuse Patient Records regulations: The Federal rules restrict any use of the information to criminally investigate or prosecute any alcohol or drug abuse patient.[facility] the event this information is protected by the Federal Confidentiality of Alcohol and Drug Abuse Patient Records regulations: The Federal rules restrict any use of the information to criminally investigate or prosecute any alcohol or drug abuse patient.[facility] Hospital[facility] the event this information is protected by the Federal Confidentiality of Alcohol and Drug Abuse Patient Records regulations: The Federal rules restrict any use of the information to criminally investigate or prosecute any alcohol or drug abuse patient.[facility] the event this information is protected by the Federal Confidentiality of Alcohol and Drug Abuse Patient Records regulations: The Federal rules restrict any use of the information to criminally investigate or prosecute any alcohol or drug abuse patient.[facility] Hospital[facility] the event this information is protected by the Federal Confidentiality of Alcohol and Drug Abuse Patient Records regulations: The Federal rules restrict any use of the information to criminally investigate or prosecute any alcohol or drug abuse patient.[facility] Hospital[facility] the event this information is protected by the Federal Confidentiality of Alcohol and Drug Abuse Patient Records regulations: The Federal rules restrict any use of the information to criminally investigate or prosecute any alcohol or drug abuse patient.[facility] HospitalIn the event this information is protected by the Federal Confidentiality of Alcohol and Drug Abuse Patient Records regulations: The Federal rules restrict any use of the information to criminally investigate or prosecute any alcohol or drug abuse patient.[facility] HospitalIn the event this information is protected by the Federal Confidentiality of Alcohol and Drug Abuse Patient Records regulations: The Federal rules restrict any use of the information to criminally investigate or prosecute any alcohol or drug abuse patient.[facility] HospitalIn the event this information is protected by the Federal Confidentiality of Alcohol and Drug Abuse Patient Records regulations: The Federal rules restrict any use of the information to criminally investigate or prosecute any alcohol or drug abuse patient.[facility] HospitalIn the event this information is protected by the Federal Confidentiality of Alcohol and Drug Abuse Patient Records regulations: The Federal rules restrict any use of the information to criminally investigate or prosecute any alcohol or drug abuse patient.[facility] HospitalIn the event this information is protected by the Federal Confidentiality of Alcohol and Drug Abuse Patient Records regulations: The Federal rules restrict any use of the information to criminally investigate or prosecute any alcohol or drug abuse patient.[facility] Hospital[facility] the event this information is protected by the Federal Confidentiality of Alcohol and Drug Abuse Patient Records regulations: The Federal rules restrict any use of the information to criminally investigate or prosecute any alcohol or drug abuse patient.[facility] HospitalIn the event this information is protected by the Federal Confidentiality of Alcohol and Drug Abuse Patient Records regulations: The Federal rules restrict any use of the information to criminally investigate or prosecute any alcohol or drug abuse patient.[facility] HospitalIn the event this information is protected by the Federal Confidentiality of Alcohol and Drug Abuse Patient Records regulations: The Federal rules restrict any use of the information to criminally investigate or prosecute any alcohol or drug abuse patient.[facility] HospitalIn the event this information is protected by the Federal Confidentiality of Alcohol and Drug Abuse Patient Records regulations: The Federal rules restrict any use of the information to criminally investigate or prosecute any alcohol or drug abuse patient.[facility] Reason for Visit (unrecogniz ed section [...] SWALLOW FUNCTION CONTRAST STUDY [address] [place] [address] Xr Imaging Referral ID Status Reason Start Date Expiration Date V isits Requested Visits Authorized [id number] Closed Auto-Generate d Referral 07/27/2022 08/26/2023 1 1 Reason Comments Spirometry Specialty Diagnoses / Procedures Referred By Contac t Referred To Contact [facility] Diagnoses Tracheal stenosis Procedures SIX MINUTE WALK CARDIOPULMONARY EXERCISE STRESS Sonu Riojas MD [address] [place] [address] Respiratory Elizabeth [address] [place] [address] Referral ID Status Reason Start Date Expiration Date V isits Requested Visits Authorized [id number] Closed Auto-Generate d Referral 08/16/2022 09/15/2023 1 1 Specialty Diagnoses / Procedures Referred By Contac t Referred To Contact [facility] Diagnoses Tracheal stenosis Procedures SPIROMETRY WITH DILATOR IF OBSTRUCTED BRNCDILAT RSPSE SPMTRY PRE&POST-BRNCDILAT ADMN Sonu Riojas MD [address] [place] [address] [address] Referral ID Status Reason Start Date Expiration Date V isits Requested Visits Authorized [id number] Closed Auto-Generate d Referral 08/16/2022 09/15/2023 1 1 Reason Comments Radio GI Main HB6 Specialty Diagnoses / Procedures Referred By Contac t Referred To Contact XR IMAGING Diagnoses Odynophagia Procedures XR MODIFIED BARIUM SWALLOW W SPEECH THERAPY RADIOLOGIC EXAM SWALLOW FUNCTION CONTRAST STUDY Otol [address] [address] Xr Imaging Reason Comments Pulm Rehab Reason Comments Appointment Reason Comments Patient Question Patient called and wants to know, if device is MRI compatible. Please call her at [phone] Reason Comments Clinic Prep Reason Comments New Patient Syncope Specialty Diagnoses / Procedures Referred By Contac t Referred To Contact Neurology Diagnoses Syncope and collapse Cerebral infarction, unspecified (HCC) Orthostatic hypotension Procedures VA OFFICE/OUTPATIENT NEW MODERATE MDM 45-59 MINUTES Mark Johnson MD [address] [place] [address] [facility] [address] [place] [address] Referral ID Status Reason Start Date Expiration Date V isits Requested Visits Authorized [id number] Pending Review 03/24/2023 03/24/2024 1 1 Specialty Diagnoses / Procedures Referred By Contac t Referred To Contact Neurology Diagnoses Syncope and collapse Procedures EEG extended more than 1 hour Steff Muhammad MD [address] [place] [address] Referral ID Status Reason Start Date Expiration Date Visits Re quested Visits Authorized [id number] Closed 04/12/2023 10/09/2023 1 1 Reason Comments Consult Reason Comments Follow-up Loss of Consciousness Results Reason Comments Lab Orders Reason Comments Radiology CT Specialty Diagnoses / Procedures Referred By Contac t Referred To Contact CT IMAGING Diagnoses Primary neuroendocrine tumor of pancreas Procedures CT PANCREAS W IVCON CT ABDOMEN W/CONTRAST Amanda Adams MD [address] [place] [address] Ct Imaging [place] [address] Referral ID Status Reason Start Date Expiration Date V isits Requested Visits Authorized [id number] Closed Auto-Generate d Referral 04/21/2023 05/20/2024 1 1 Reason Comments Follow-up Loss of Consciousness Stroke Care Teams (unrecognized sec tion and content) Applicator Sprayer Relationship Specialty Start Date End Date Kaylin Hui [address] [facility] [place] [address] PCP - General Family Practice 04/13/21 Trey Richey [address] [place] [address] Cardiology 05/14/18 Amanda Clark V [address] [place] [address] Referring Internal Medicine 06/26/20 Applicator Sprayer Relationship Specialty Start Date End Date Kaylin Hui [address] [facility] [address] [place] [id number] PCP - General Family Practice 04/13/21 Trey Richey [address] [place] [address] Cardiology 05/14/18 Amanda Clark, Jian [address] [place] [place] [address] Referring Internal Medicine 06/26/20 Applicator Sprayer Relationship Specialty Start Date End Date Kaylin Hui [address] [facility] [place] [address] PCP - General Family Practice 04/13/21 Trey Richey [address] [place] [address] Cardiology 05/14/18 Amanda Clark V [address] [place] [place] [address] Referring Internal Medicine 06/26/20 Applicator Sprayer Relationship Specialty Start Date End Date Kaylin Hui [address] [facility] [place] [address] PCP - General Family Medicine 04/13/21 Trey Richey [address] [place] [address] Cardiology 05/14/18 Amanda Clark V [address] [place] [place] [address] Referring Internal Medicine 06/26/20 Applicator Sprayer Relationship Specialty Start Date End Date Kaylin Hui [address] [facility] [place] [address] PCP - General Family Medicine 04/13/21 Trey Richey [address] [place] [address] Cardiology 05/14/18 Amanda Clark V [address] [place] [address] Referring Internal Medicine 06/26/20 Applicator Sprayer Relationship Specialty Start Date End Date Kaylin Hui [address] [facility] [place] [address] PCP - General Family Medicine 04/13/21 Trey Richey [address] [place] [address] Cardiology 05/14/18 Amanda Clark V [address] [place] [address] Referring Internal Medicine 06/26/20 Applicator Sprayer Relationship Specialty Start Date End Date Kaylin Hui [facility] [place] [address] PCP - General Family Medicine 04/13/21 Trey Richey [address] [place] [address] Cardiology 05/14/18 Amanda Clark V [address] [place] [address] Referring Internal Medicine 06/26/20 Applicator Sprayer Relationship Specialty Start Date End Date Kaylin Hui [address] [facility] [place] [address] PCP - General Family Medicine 04/13/21 Trey Richey [address] [place] [address] Cardiology 05/14/18 Amanda Clark V [address] [place] [place] [address] Referring Internal Medicine 06/26/20 Applicator Sprayer Relationship Specialty Start Date End Date Kaylin Hui [address] [facility] [address] [place], [place] [phone] PCP - General Family Medicine 04/13/[address] [place] [address] Cardiology 05/14/18 Amanda Clark V [address] [place] [address] Referring Internal Medicine 06/26/20 Applicator Sprayer Relationship Specialty Start Date End Date Kaylin Hui [address] [facility] [place] [place] [address] PCP - General Family Medicine 04/13/21 Trey Richey [address] [place] [address] Cardiology 05/14/18 Amanda Clark V [address] [place] [address] Referring Internal Medicine 06/26/20 Applicator Sprayer Relationship Specialty Start Date End Date Kaylin Hui [address] [facility] [place] [address] PCP - General Family Medicine 04/13/21 Trey Richey [address] [place] [address] Cardiology 05/14/18 Amanda Clark V [address] [place] [address] Referring Internal Medicine 06/26/20 Applicator Sprayer Relationship Specialty Start Date End Date Kaylin Hui PA-C [address] [facility] [address] [place] [phone] PCP - General Physician Cleaning Technician 03/24/23 Applicator Sprayer Relationship Specialty Start Date End Date Kaylin Hui PA-C [address] [place], [place] [id number] PCP - General Physician Cleaning Technician 03/24/23 Applicator Sprayer Relationship Specialty Start Date End Date Kaylin Hui [address] [facility] [address] [place], [place] [phone] PCP - General Family Medicine 04/13/21 Trey Richey [address] [place] [address] Cardiology 05/14/18 Eduardo AmandaJian [address] [place] [address] Referring Internal Medicine 06/26/20 Applicator Sprayer Relationship Specialty Start Date End Date Kaylin Hui PA-C [address] [place], [place] [phone] PCP - General Physician Cleaning Technician 03/24/23 Applicator Sprayer Relationship Specialty Start Date End Date Kaylin Hui [address] [place] [id number] PCP - General Family Medicine 04/13/21 Trey Richey MD [address] [place], [place] [id number] Cardiology 05/14/18 Amanda Clark V [address] [place] [address] Referring Internal Medicine 06/26/20 Applicator Sprayer Relationship Specialty Start Date End Date Kaylin Hui [address] [place], [place] [phone] PCP - General Family Medicine 04/13/21 Trey Richey MD [address] [place], [place] [id number] Cardiology 05/14/18 Amanda Clark V [address] [place] [address] Referring Internal Medicine 06/26/20 Applicator Sprayer Relationship Specialty Start Date End Date Kaylin Hui PA-C [address] [facility] [place] [address] PCP - General Physician Cleaning Technician 03/24/23 <item> Privacy Markings (unrecogniz ed section [...] BE BASED ON THE PRIMARY CLINICAL RECORDS. [employer] [facility]. provides no warranty or guarantee of the accuracy or completeness of information in this document.
[2023-11-24] MEDS: Potassium Chloride Oral Tablet 20 MEQ PO ×2 (04:18→20:15)
[2023-11-24] MEDS: Carvedilol 3.125 MG TABLET PO ×2 (04:19→20:14)
[2023-11-24] MEDS: Atorvastatin Calcium 40 MG Tablet PO ×2 (04:19→20:14)
[2023-11-24] MEDS: Tamsulosin HCl 0.4 MG Capsule 0.400000000000000022 MG PO ×2 (04:19→20:15)
[2023-11-24] MEDS: Mirtazapine 30 MG Tablet PO ×2 (04:20→20:14)
--- NOTE | 2023-11-24 05:00 | EKG12_ITS ---
Test Reason : PRE-OP Blood Pressure : / mmHG Vent. Rate : 056 BPM Atrial Rate : 056 BPM P-R Int : 214 ms QRS Dur : 154 ms QT Int : 514 ms P-R-T Axes : 082 -75 -04 degrees QTc Int : 496 ms Sinus bradycardia with 1st degree A-V block Left axis deviation Right bundle branch block Septal infarct (cited on or before 19-JUN-2023) Abnormal ECG When compared with ECG of 19-JUN-2023 21:47, Premature supraventricular complexes are no longer Present Confirmed by SANTO BARRIOS, KALYN ([id number]), newspaper or periodical editor ALISIA MAGANA ([id number]) on 11/27/2023 2:02:54 PM Referred By: NATO Confirmed By:GRIS BLANCHARD MD
[2023-11-24 06:44] LABS: Absolute Lymphocyte Count 0.83 X10^3/uL (0.83-4.51); Absolute Neutrophil Count 8.6 X10^3/uL (2.0-7.7); Basophil# 0.03 X10^3/uL; Basophil% 0.3 % (0-1); Hematocrit 39.5 % (40-54); Hemoglobin 12.8 g/dL (13.0-16.5); Lymphocyte # 0.83 X10^3/ul (0.83-4.51); Mean Corp Hgb Conc 32.4 g/dL (32-36); Mean Corpuscular Hgb 29.8 pg (27.0-32.0); Mean Corpuscular Volume 91.9 fL (80-94); Mean Platelet Vol. 9.3 fl (6.2-12.0); Monocyte# 0.73 X10^3/uL; Monocyte% 7.1 % (0-10); NRBC Flagged by Analyzer 0 % (0-5); Neutrophil # 8.58 X10^3/uL (2.7-7.7); Neutrophil % 83.1 % (47-70); Platelet Count 228 K/mm3 (150-450); RBC Distribution Width CV 16.2 % (11.6-14.6); RBC Distribution Width SD 53.9 fl (35.1-43.9); White Blood Count 10.3 K/mm3 (4.4-11.0)
[2023-11-24 06:56] LABS: International Normalized Ratio 1.1; Prothrombin Time (Protime)PT. 14.3 SECONDS (11.7-14.9)
[2023-11-24 06:57] LABS: Partial Thromboplast Time 27.6 Seconds (24.1-36.2)
[2023-11-24 07:23] LABS: AST(SGOT) 18 U/L (15-37); Alanine Aminotransfer ALT/SGPT 24 U/L (16-61); Albumin, Serum 3.1 g/dL (3.2-5.0); Alkaline Phosphatase 75 U/L (45-117); Anion Gap 4 (5-15); BUN 24 mg/dL (7-18); BUN/Creat Ratio 20.5 RATIO (10-20); Bilirubin, Direct 0.17 mg/dL (0.00-0.30); Calcium,Total 8.4 mg/dL (8.5-10.1); Chloride 104 mmol/L (98-107); Creatinine, Serum 1.17 mg/dL (0.70-1.30); EST Glomerular Filtration Rate 65 mL/min (>60); Est Glom Filt Rate - Afr Amer 79 mL/min (>60); Estimated Creatinine Clearance 63.28 ml/min; Glucose 83 mg/dL (74-106); Phosphorus 3.3 mg/dL (2.5-4.9); Potassium 4.5 mmol/L (3.5-5.1); Protein, Total 6.1 g/dL (6.4-8.2); Sodium Level 138 mmol/L (136-145); Thyroid Stim Hormone (TSH) 0.19 uIU/mL (0.358-3.74)
--- NOTE | 2023-11-24 07:23 | PN.HOSP_ITS ---
Reason for Visit Reason for Visit: Diagnoses Fracture of unspecified part of neck of left femur, initial encounter for closed fracture (11/24/23) Unspecified fall, initial encounter (11/24/23) Unspecified place in unspecified non-institutional (private) residence as the place of occurrence of the external cause (11/24/23) Subjective Subjective No new issues. States that he has not drank alcohol in 4 months. Objective Data Objective Data Vital Signs: Vital Signs Temp Pulse Resp BP Pulse Ox O2 Del Method O2 Flow Rate 36.6 C 63 16 123/69 H 96 Nasal Cannula 3 11/24/23 04:24 11/24/23 04:24 11/24/23 04:24 11/24/23 04:24 11/24/23 04:24 11/24/23 04:24 11/24/23 04:24 Oxygen Flow Rate (L/min) 3 Oxygen Delivery Method Nasal Cannula Weight: 90.53 kg Body Mass Index (BMI) 30.2 Lab / Micro Data 11/24/23 05:16 11/24/23 05:16 Labs: Laboratory Results - last 24 hr 11/24/23 05:16: WBC 10.3, RBC 4.30 L, Hgb 12.8 L, Hct 39.5 L, MCV 91.9, MCH 29.8, MCHC 32.4, RDW Std Deviation 53.9 H, RDW Coeff of Elpidio 16.2 H, Plt Count 228, MPV 9.3, Immature Gran % (Auto) 0.500, Neut % (Auto) 83.1 H, Lymph % (Auto) 8.0 L, Zapata % (Auto) 7.1, Eos % (Auto) 1.0, Baso % (Auto) 0.3, Absolute Neuts (auto) 8.6 H, Absolute Lymphs (auto) 0.83, Nucleated RBC % 0, PT 14.3, INR 1.1, APTT 27.6, Sodium 138, Potassium 4.5, Chloride 104, Carbon Dioxide 30.0, Anion Gap 4 L, BUN 24 H, Creatinine 1.17, Estim Creat Clear Calc 63.28, Est GFR (MDRD) Af Amer 79, Est GFR (MDRD) Non-Af 65, BUN/Creatinine Ratio 20.5 H, Glucose 83, Calcium 8.4 L, Phosphorus 3.3, Magnesium 2.0, Total Bilirubin 0.60, Direct Bilirubin 0.17, AST 18, ALT 24, Alkaline Phosphatase 75, Total Protein 6.1 L, Albumin 3.1 L, Globulin 3.0, Albumin/Globulin Ratio 1.0, TSH 0.19 L Physical Exam Const alert and no apparent distress HEENT head/scalp atraumatic and moist oral mucous membranes Resp normal respiratory effort, no retractions, no use of accessory muscles and clear to auscultation bilaterally Cardio regular rate, regular rhythm, S1 normal heart sound and S2 normal heart sound GI normal to inspection, nondistended, normoactive bowel sounds, soft to palpation, non-tender and non-distended Neuro Sensorium / Orientation: awake and alert Assessment & Plan Assessment/Plan (1) Closed left hip fracture: QUALIFIERS: Encounter type: initial encounter Qualified Code(s): S72.002A - Fracture of unspecified part of neck of left femur, initial encounter for closed fracture (2) Fall at home: QUALIFIERS: Encounter type: initial encounter Qualified Code(s): W19.XXXA - Unspecified fall, initial encounter; Y92.009 - Unspecified place in unspecified non-institutional (private) residence as the place of occurrence of the external cause PLAN: Plan Left hip fracture * s/p mechanical fall * consult Dr. Dorman of the orthopedic service see this patient on rounds in the a.m. for further recommendations with help appreciated in advance. * check 25 [place] d level * PT OT Alcohol abuse * history. * DC phenobarbital taper * thiamine and folate * not going through alcohol withdrawal. Chronic conditions: * History of CVA; with residual Right hemiparesis * History of parkinsonism * Essential hypertension - Resume current management. * Hyperlipidemia - Continue statin. * Hypothyroidism - Resume Synthroid and check TSH. * Obesity; with BMI of 30.3 this admission plus BETTY; on CPAP - Weight loss will be recommended. Continue nocturnal CPAP as previous. * CAD; status post VT and CABG x 5 (2018) - Noted. * History of ischemic cardiomyopathy; with LVEF ~40% plus history of nonrheumatic mitral regurgitation - Resume home regimen. * History of primary pancreatic neuroendocrine tumor - Noted. * History of colonic diverticulosis * History of tracheal stenosis * History of syncope * Trigeminal neuralgia * IBS; of constipation type on Linzess - Continue Linzess as previous. * GERD - Resume PPI. * BPH with overactive bladder - Stable on current medical regimen. * Depression - Continue home medications. DVT prophylaxis - SCDs Charges/Coding Visit Charges Inpatient E&M: 34399 Subs Hosp L2
[2023-11-24] MEDS: 0.9% Saline Lock 10 ML Syringe IV ×2 (09:10→20:08)
[2023-11-24 09:15] LABS: Vitamin D,25 Hydroxy 69.8 ng/mL
--- NOTE | 2023-11-24 09:20 | HIP_PTH ---
PATHOLOGY RESULTS PATIENT: AMANDA HERNANDEZ LOC: MS3 U#:[id number] AGE/SX: 73/M ROOM: [facility] [place] RE11/24/[address]: Dr. Leo Leal MD : 1950 BED: 1 DIS: 11/27/2023 SPEC #: [id number] RECD: 11/27/23 08:39 STATUS: SHAYY REYanely #: [id number] DEMARCO: 11/24/23 09:[address]: Ramesh Dorman DEPT: SURGICAL PATHOLOGY RECD BY: Britt Rodrigues ENTERED: 11/27/23 08:39 SP TYPE: TOTAL HIP OTHR DR: Dr. Mathieu Talley, DO Dr. Shankar Billings, DO Dr. Ramesh Dorman, DO MD Kaylin Wolfe PA Tissues: Hip, NOS Procedures: Decalcification bone/plaque Surgery Specimen Level IV Comments: @ Ordering doctor for DEC edited from to @ nirmal HARDING at 11/27/23 144 @ Ordering doctor for SUIV edited from to @ nirmal HARDING at 11/27/23 1448 @ Submitting doctor edited from to @ nirmal HARDING at 11/27/23 1448 HEADER OPERATION: Left hip hemiarthroplasty PRE-OP DIAGNOSIS: Closed left hip fracture TISSUE SUBMITTED: Left hip bone and tissue MICROSCOPIC DIAGNOSIS Left hip bone and tissue, total hip replacement/resection: Femoral head with focal area of hemorrhage, clinically closed left hip fracture. SJ:obdulia 11/30/2023 MICROSCOPIC DESCRIPTION Slides are reviewed. GROSS DESCRIPTION Received is one container labeled with the patient's name and designated left hip bone and tissue. The specimen consists of a temple femoral head measuring 5.0 x 5.0 x 4.8 cm. The articular surface shows focal pitting and a focal area of depression measuring 2.5 x 1.5 x 1.0 cm. The non-articular surface displays hemorrhagic, reddish-temple surface consistent with fracture site. Also present free in the specimen container are multiple irregular fragments of temple bone measuring in aggregate 5.0 x 4.0 x 1.2 cm. Digital Experience Manager sections of bone are submitted in two cassettes after decalcification. / AM:obdulia 11/27/2023 TC:5 CPT: 24725, 70301
--- NOTE | 2023-11-24 11:40 | CASEMGMT ---
RN?CM?GUIDANCE SECRETARY?CM?to room to meet with patient for initial transition planning/care coordination?assessment.?RN?CM?introduced self and role at [facility].? Pt voices understanding and consents to?assessment?at this time.? Pt resting in bed in no distress at this time.? @ bedside. Pt is A/O at this time and answers all questions appropriately.?? Care providers, pharmacy, and demographics verified/updated at this time. PCP: MARIELENA Edwards Specialists: Dr Ceron-neurology, [facility]-cardiology Preferred Pharmacy: [facility] Insurance: Janette BRANDON Prescription Benefit:?yes Living Will/HPOA:?Has both LW and HCPOA, who is his LNOK: Renetta Living Arrangements: Lives w/his in one-story home w/2 total steps to enter. Prior to fall/fx, pt was mostly independent w/bathing ( washes his back) and pt able to dress self. manages his medications and takes him to appts and does home mgnt tasks. Transportation:?. DME: ?States has the following DME:?shower chair, walker, CPAP. Pt does not have home O2. HHC/SNF: Has been to [facility] and [facility] (2022[facility] and [facility]. Pt and pt would like pt to go to [facility] (if qualifies) or [facility] if he does not qualify for [facility] and declines wanting list of other SNF's, unless RU or TCU unable to accept. Pt states his 2nd choice would be [facility], but does request SNF list for them to review. Leslie GAMA, made aware. Pt and made aware of [facility]'s 3 [place] In-patient criteria for SNF benefits. ETOH: Pt has hx of ETOH abuse, but states has been sober since April of 2023. He states he went to [facility] last year and that was helpful. He declines needing/wanting any resources. PLAN:?? Wendi BSN?RN?CM
--- NOTE | 2023-11-24 12:16 | CASEMGMT ---
Social Work SW received referral from RNCM that pt will need short term rehab proir to return home. Pt scheduled for surgery today. SW met with pt and and introduced self and role of SW. A list of SNF and Rehab Unit providers including quality and resource use data and consistent with the patient?s preferred geographic region, medical needs, and insurance network were provided from the [employer] Guide. Pt first choice is [facility] inpatient Rehab and second choice is [facility] TCU. Pt made aware that SW will follow up after surgery and therapy and make referrals. Pt expresses understanding. MICHEAL Rodriguez
--- NOTE | 2023-11-24 14:45 | NURSING ---
Pt to OR via bed
--- NOTE | 2023-11-24 15:55 | CHAPLAIN ---
Type of Pastoral Visit _x__ Initial Visit ___ Follow-up Visit ___ On-call Visit ___ General Patient Visit ___ Spiritual Assessment ___ Family Conference ___ Bereavement ___ Rapid Response ___ Code Blue ___ Other (describe below) Pastoral Care Referral From _x__ Patient _x__ Family ___ Nurse ___ Physician ___ Slubber Hand ___ Photofinishing Laboratory Worker ___ Other (describe below) Sacrament/Intervention _x__ Active listening ___ Anointing ___ Spiritism ___ Bereavement ___ Communion ___ Bindu exploration ___ ___ Life review _x__ Prayer ___ Reconciliation ___ Sacrament of Sick _x__ Supportive presence ___ Wedding ___ Other (describe below) Pastoral Comments patient and spouse are in the room; pt is being readied for surgery; pt has been seen before in previous admissions and remembers this 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
--- NOTE | 2023-11-24 16:59 | CONS.ORTHO ---
HPI Consult Data Date of Consult: 11/24/23 HPI Narrative HPI Narrative: AMANDA HERNANDEZ, is a 73 M who presents after mechanical fall from standing height onto his left side last evening 11/23/2023. Patient was able to bear weight was brought to [place] emergency department. X-rays revealed a displaced left femoral neck fracture. Patient is an established patient of mine after a displaced right femoral neck fracture sustained last May 2023 and underwent uncomplicated right hip hemiarthroplasty 06/20/2023. I recently saw the patient in the office and he appeared to be turning a corner with his return to ambulation. Up to last evening patient was seemingly doing very well. He was still using a walker but was taking steps without it. He states he was out near his truck and was reaching for an object overhead lost his balance and fell on his left side. He denies any head injury or loss of consciousness. Denied any antecedent left hip or groin pain. Patient requested transfer to [facility]. He was admitted under the service to hospitalist. I saw patient in consultation. Patient denies any fevers, chills, nausea vomiting, chest pain or shortness of breath. [facility] Medical History Adult failure to thrive Alcoholism Anxiety and depression Aphonia Atherosclerotic heart disease of [place] coronary artery without angina pectoris Bifascicular block BPH (benign prostatic hyperplasia) Bradycardia Cardiac arrest with ventricular fibrillation Congestive heart failure (CHF) CVA (cerebral vascular accident) Diverticulosis Dysphagia Dyspnea on exertion Essential hypertension Fatigue Former smoker GERD (gastroesophageal reflux disease) History of CVA (cerebrovascular accident) History of tracheal stenosis Hyperlipidemia Hypertension Hypothyroidism ICD (implantable cardioverter-defibrillator) in place Ischemic cardiomyopathy Low back pain Myocardial infarct Non-rheumatic mitral regurgitation BETTY on CPAP Osteoporosis Pancreatic mass 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 Right bundle branch block SBO (small bowel obstruction) Syncope Trigeminal neuralgia Weakness Home Medications omeprazole 20 mg tablet,delayed release 20 mg PO DAILY reflux 09/26/18 [History Last Taken 06/22/23] potassium chloride 10 mEq tablet,extended release 20 meq PO BID supplement 11/18/19 [History Last Taken 06/22/23] aspirin 81 mg tablet,delayed release 81 mg PO QDAY [facility] 02/01/22 [History Last Taken 06/22/23] duloxetine 60 mg capsule,delayed release 60 mg PO DAILY mental health 03/21/23 [History Last Taken 06/22/23] furosemide 40 mg tablet 20 mg PO .COMPLEX diuretic 03/21/23 [History Last Taken 06/22/23] mirabegron 50 mg tablet,extended release 24 hr (Myrbetriq) 50 mg PO DAILY BLADDER 05/19/23 [History Last Taken 06/22/23] atorvastatin 40 mg tablet 40 mg PO QHS cholesterol #0 tabs 07/06/23 [Rx Last Taken Unknown] levothyroxine 50 mcg tablet 50 mcg PO SuSa@0600 thyroid #0 tabs 07/06/23 [Rx Last Taken Unknown] metolazone 2.5 mg tablet 2.5 mg PO DAILY PRN FLUID RETENTION #0 tabs 07/06/23 [Rx Last Taken Unknown] mirtazapine 30 mg tablet 30 mg PO QHS sleep #0 tabs 07/06/23 [Rx Last Taken Unknown] nitroglycerin 0.4 mg sublingual tablet 0.4 mg sublingual Q5M PRN Cardiac/Chest Pain #0 tabs 07/06/23 [Rx Last Taken Unknown] finasteride 5 mg tablet 5 mg PO DAILY 30 days #30 tabs 07/28/23 [Rx Last Taken Unknown] losartan 50 mg tablet 50 mg PO DAILY 30 days #30 tabs 07/28/23 [Rx Last Taken Unknown] carvedilol 3.125 mg tablet 3.125 mg PO BIDCM BP #180 tabs 08/07/23 [Rx Last Taken Unknown] ergocalciferol (vitamin D2) 1,250 mcg (50,000 unit) capsule 1,250 mcg PO QWEEK vits 09/26/23 [History Last Taken Unknown] acetaminophen 325 mg capsule (Tylenol) 650 mg PO Q6H 11/24/23 [History Last Taken Unknown] amiodarone 200 mg tablet 100 mg PO DAILY heart rate 11/24/23 [History Last Taken Unknown] levothyroxine 25 mcg tablet 25 mcg PO MOTUWETHFR thyroid 11/24/23 [History Last Taken Unknown] linaclotide 145 mcg capsule (Linzess) 145 mcg PO DAILY PRN bowel 11/24/23 [History Last Taken Unknown] oxybutynin chloride 10 mg tablet,extended release 24 hr 10 mg PO DAILY bladder 11/24/23 [History Last Taken Unknown] tamsulosin 0.4 mg capsule 0.4 mg PO QHS bph 11/24/23 [History Last Taken Unknown] tramadol 50 mg tablet 50 mg PO DAILY PRN PRN Pain Score 1-10 11/24/23 [History Last Taken Unknown] Allergy/AdvReac Type Severity Reaction Status Date / Time lisinopril AdvReac cough Verified 10/20/23 12:25 Family History Mother Heart disease Cancer breast CAD (coronary artery disease) Breast cancer Father Colon cancer Sister Breast cancer Rheumatoid arthritis Surgical History Aortocoronary bypass status (~09/28/17) History of cardiac radiofrequency ablation History of implantable cardioverter-defibrillator (ICD) placement (~11/10/17) History of kyphoplasty History of resection and anastomosis of trachea (~04/2021) S/P total right hip arthroplasty Social History household members: spouse number of children: 2 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 Admits to 8-9 beers a day at the present time. substance use type: does not use caffeine: No ROS ROS Narrative 12 point review systems obtained, negative less otherwise noted HPI. Vital Signs Vital Signs Vital Signs: 11/24/23 01:40 11/24/23 01:12 11/24/23 04:24 Temperature 98.6 F 97.9 F Temperature Source Oral Oral Pulse Rate 69 63 Respiratory Rate 18 16 Respiratory Effort Normal Non-Labored Respiratory Depth Normal Respiratory Pattern Normal Blood Pressure 156/74 H 123/69 H Blood Pressure Mean 101 87 Blood Pressure Source Monitor Monitor Blood Pressure Position Semi-Fowlers Semi-Fowlers Blood Pressure Location Left Arm Left Arm Pulse Ox 98 96 Oxygen Delivery Method Nasal Cannula Nasal Cannula Nasal Cannula Oxygen Flow Rate (L/min) 3 3 3 11/24/23 08:40 11/24/23 08:48 11/24/23 14:23 Temperature 98.0 F 99.7 F H Temperature Source Oral Oral Pulse Rate 60 79 Respiratory Rate 16 16 Respiratory Effort Respiratory Depth Respiratory Pattern Blood Pressure 135/71 H 148/69 H Blood Pressure Mean 92 95 Blood Pressure Source Monitor Monitor Blood Pressure Position Semi-Fowlers Semi-Fowlers Blood Pressure Location Left Arm Left Arm Pulse Ox 95 96 Oxygen Delivery Method Nasal Cannula Room Air Nasal Cannula Oxygen Flow Rate (L/min) 3 3 Weight Weight: 199 lb 15.348 oz Body Mass Index (BMI) 30.3 Physical Exam Narrative General -A&Ox3, NAD, appears stated age. Vital signs stable, afebrile. Respiratory -normal work of breathing, no intercostal retractions. CV -pulses regular, brisk capillary refill ?4 limbs. Abdomen-soft, nontender, nondistended. No guarding, rigidity, rebound tenderness. Musculoskeletal/neurologic -full range of motion nontender throughout bilateral upper extremities, right lower extremity with full sensation and strength in all dermatomes and myotomes. No midline cervical tenderness. Left lower extremity-no obvious deformity. Pain with logroll of the left lower extremity. Nontender throughout the left knee femoral shaft, tibial shaft and left foot/ankle. Brisk capillary refill. Sensation intact light touch L3-S1 dermatomes. DF, PF, EHL intact. DP, PT 2+. Pelvis is stable, nontender. Skin is intact without lacerations, abrasions. No ecchymosis noted. Lab / Micro Data 11/24/23 05:16 11/24/23 05:16 Labs: Laboratory Results - last 24 hr 11/24/23 05:16: WBC 10.3, RBC 4.30 L, Hgb 12.8 L, Hct 39.5 L, MCV 91.9, MCH 29.8, MCHC 32.4, RDW Std Deviation 53.9 H, RDW Coeff of Elpidio 16.2 H, Plt Count 228, MPV 9.3, Immature Gran % (Auto) 0.500, Neut % (Auto) 83.1 H, Lymph % (Auto) 8.0 L, [place] % (Auto) 7.1, Eos % (Auto) 1.0, Baso % (Auto) 0.3, Absolute Neuts (auto) 8.6 H, Absolute Lymphs (auto) 0.83, Nucleated RBC % 0, PT 14.3, INR 1.1, APTT 27.6, Sodium 138, Potassium 4.5, Chloride 104, Carbon Dioxide 30.0, Anion Gap 4 L, BUN 24 H, Creatinine 1.17, Estim Creat Clear Calc 63.28, Est GFR (MDRD) Af Amer 79, Est GFR (MDRD) Non-Af 65, BUN/Creatinine Ratio 20.5 H, Glucose 83, Calcium 8.4 L, Phosphorus 3.3, Magnesium 2.0, Total Bilirubin 0.60, Direct Bilirubin 0.17, AST 18, ALT 24, Alkaline Phosphatase 75, Total Protein 6.1 L, Albumin 3.1 L, Globulin 3.0, Albumin/Globulin Ratio 1.0, Vitamin D 25-Hydroxy 69.8, TSH 0.19 L, Blood Type O NEGATIVE, Antibody Screen NEGATIVE Assessment & Plan Assessment/Plan (1) Closed left hip fracture: QUALIFIERS: Encounter type: initial encounter Qualified Code(s): S72.002A - Fracture of unspecified part of neck of left femur, initial encounter for closed fracture PLAN: Patient sustained a displaced left femoral neck fracture -Closed, neurovascularly intact -Isolated injury -Recommending surgical intervention in the form of left hip hemiarthroplasty -I discussed the procedure-its risks, benefits and alternative. Risks include but are not limited to bleeding, infection, loss of life or limb, risk of anesthesia, persistent pain or disability, need for additional surgery, instability, damage to surrounding structures, failure of orthopedic hardware, neurovascular injury, DVT or PE. Patient expressed understanding these risks and wished proceed with surgery. -Maintenance IV fluids, clear liquid diet after midnight n.p.o. at 2 hours prior to surgery -Type and screen -2 g Ancef, 1 g IV TXA on-call to the OR -Bedrest, heel protectors -Plan to proceed with surgery later today when OR becomes available Thank you for this consultation.
[2023-11-24] MEDS: Cefazolin 2 GM in 0.9% Normal Saline (100mL Bag) 100 ML IV (17:36)
[2023-11-24] MEDS: TRANEXAMIC ACID 1,000 MG in 0.9% Normal Saline (100mL Bag) 100 ML 440 MG IV (17:53)
[2023-11-24] MEDS: Bupiv/Epi 0.25% 30 ML Vial 60 ML INFILT (18:32)
--- NOTE | 2023-11-24 19:05 | RAD_ITS ---
INDICATION: Post Op -- AP both hips on single ivette/lateral of op hip PACU EXAMINATION/TECHNIQUE: X-RAY - XR Hip Unilateral with Pelvis when performed; 2-3 Views COMPARISON: FINDINGS: PELVIC BONES: No displaced fracture, destructive or sclerotic lesions. Sacroiliac joints are unremarkable. No widening of the pubic symphysis. HIPS: There is a right hip prosthesis in place. There is a left hip prosthesis in place with adjacent postsurgical changes and lateral skin jacqueline. SOFT TISSUES: No soft tissue swelling or gas. RAD/Hip Min 2 Views (Portable) IMPRESSION: No acute bony injury. Bilateral hip prosthesis in place. Electronically Signed: Arsalan Lawson DO at 19:25 EST Reading Location ID and State: [facility] / [place] Tel [phone], Service support ,
--- NOTE | 2023-11-24 19:11 | PCM.OPRPT ---
Report of Operation Date of Procedure: 11/24/23 Description of Surgical Findings:: Preoperative diagnosis: Left displaced femoral neck fracture Postoperative diagnosis: Left displaced femoral neck fracture Procedure: Left hip hemiarthroplasty Surgeon: Ramesh Dorman DO Utility Clerk: FADY Shukla Anesthesia: General endotracheal Anesthesiologist: Dr. Loredo Complications: Broken drill bit tip at time of capsular repair unable to be retrieved from the greater trochanter. See below for details. Drains: None Estimated blood loss: 150 cc Urinary output: None recorded IV fluids: 1 L crystalloid Specimens: Left femoral head Surgical implants: [place] Accolade two 127 degree neck angle hip stem size # 6, Unitrax neck adjustment sleeve std, Unitrax endoprosthesis head component outer diameter 51 mm Indications: This is an 73 M who presents after mechanical fall from standing height onto his left side last evening 11/23/2023. He sustained a left displaced femoral neck fracture. This was an isolated injury.. I was consulted to see the patient for surgical recommendations. I recommended a left hip hemiarthroplasty due to the pattern and displacement as well as patient's history of CVA and lack of osteoarthritic changes. I reviewed the procedure with the patient, its risk, benefits, alternatives. Risks included but were not limited to bleeding, infection, loss of life or limb, risk of anesthesia, neurovascular injury, persistent pain, instability, need for additional surgery, failure of orthopedic hardware, loosening, osteolysis, need for assistive devices long-term. Patient expressed understanding wish to proceed with surgery. Description of procedure: Prior to the procedure, patient was brought to the preoperative holding area where patient was identified by name, medical record number and date of . I confirmed the side, site, operation to be performed with the patient. Informed consent was confirmed, All questions were answered to patient satisfaction. The operative extremity was marked. He was also seen by anesthesia staff and anesthesia consent obtained.At time of the operative procedure, pt was brought to the operative suite. General anesthesia was induced on the hospital bed and endotracheal tube placed. After adequate anesthesia, patient was transferred to a standard operating table. He was then positioned in the lateral decubitus position with the left side up and held in position by [employer] hip positioner system. All bony prominences were well-padded. An axillary roll was placed under the patient's right axilla. Peroneal nerve was free with a blanket on the nonoperative extremity. Leg lengths were reproduced from patient's position when he was supine. The left lower extremity was then prepped and draped in normal, sterile orthopedic fashion. We performed a timeout with all parties in attendance in agreement with the side, site, and operation to be performed. No concerns were voiced and would like to proceed. I first marked an incision along the lateral aspect of the hip centered over the greater trochanteric tip. In standard posterior approach, a curvilinear incision was made above the trochanter. An approximately 15 cm incision was made. Skin was sharply incised with a 10 blade scalpel carried deep through subcutaneous layers to the level of the IT band. Gelpi retractors were then placed. A Topete was used to expose the fascia xavi. Bovie cautery was then used for hemostasis and then to open the fascia. This was opened in line with the incision. A Charnley retractor was then placed. Sciatic nerve was free. The trochanteric bursa was then debrided. This identified the short external rotators after internal rotation of the hip. The fracture site was easily identified at this point. Short external rotators were taken down and tagged for later repair. Hip capsule was also tagged for repair with a stay suture. We then freshened the neck cut with a sagittal saw. Anterior and posterior acetabular retractors were placed to gain access to the femoral head. A corkscrew was used to remove the head. Any remaining debris was debrided from the acetabulum. We then placed the femoral head on the back table for measurement. We did use trial heads and selected a final size 51 with good suction fit. Box chisel was then utilized to gain access to the femoral canal. Canal finder was placed. Sequential broaches were used and press-fit manner. A final size 6 achieved excellent vertical and rotational stability. We then trialed with a standard and subsequently high offset stem. I offset did achieve excellent stability and reproduction of abductor tension. Leg lengths appeared appropriate with a -4 neck length. Trials were then removed. We copiously irrigated the wound with normal saline solution. A size 6 stem was then impacted with excellent fixation. Final head was then impacted over the Doran taper neck. Final reduction was performed. The hip was brought through range of motion and was stable. Leg lengths appeared appropriate. A 3-minute diluted Betadine soak was performed. Wound was then sukh irrigated with normal saline solution. A posterior capsular repair was performed with #2 Ethibond suture via bone tunnels. While drilling for the bone tunnel, the drill bit contacted the prosthesis and broke. I was unable to retrieve the broken drill bit tip as it was embedded in bone. I felt the most appropriate step was to redraw the bone tunnel and leave the broken drill bit tip embedded in bone. A fresh bone tunnel was established and capsular repair was otherwise performed unremarkably. Fascia was closed watertight with #1 strata fix. Deeper fascial layers were closed with 0 Vicryl suture in interrupted fashion. Subcutaneous layers were reapproximated with 2-0 Vicryl suture and skin reapproximated with skin jacqueline. A silver dressing was applied. Patient tolerated procedure well without complication. He was positioned back in the supine position on her hospital bed and subsequently extubated safely. He was transferred to PACU in stable condition. Blankets were placed between the patient's legs. Post Operative Plan: Weightbearing: Weightbearing as tolerated left lower extremity, posterior hip precautions. Blankets between legs first 24 hours Antibiotics: Ancef 2 g every 8 hours x 3 doses DVT Prophylaxis: Lovenox x28 days, SCDs, KIMBERLY hose, early mobilization Brunner: None Dressing: Maintain silver dressing x7 days X-Rays: PACU x-rays were reviewed demonstrated well-positioned left hip hemiarthroplasty implant. Broken drill bit to is noted at the lateral shoulder of the prosthesis appears to be embedded within the proximal femur. Follow-up 2-week x-rays in the office. Follow-up: 2 weeks in my office for staple removal
[2023-11-24] MEDS: Finasteride 5 MG Tablet PO (20:14)
[2023-11-24] MEDS: Furosemide 20 MG Tablet PO (20:14)
[2023-11-24] MEDS: Senna/Docusate Sodium 1 Tablet 2 TABLET PO (20:14)
[2023-11-24] MEDS: DULoxetine Hcl 60 MG Capsule PO (20:14)
[2023-11-24] MEDS: Vibegron 75 MG TABLET PO (20:14)
[2023-11-24] MEDS: oxyCODONE 5 MG Tablet PO (20:25)
[2023-11-24] MEDS: Acetaminophen 500 MG Tablet 1000 MG PO (22:00)
[2023-11-25] VITALS (8 sets, daily range): BP systolic 107–138; BP diastolic 51–69; PULSE 62–77; RESP 14–18; TEMP 36.6–37.8; O2SAT 87–99; BMI 30.2
[2023-11-25] MEDS: Cefazolin 2 GM in 0.9% Normal Saline (100mL Bag) 100 ML IV ×3 (00:30→17:34)
[2023-11-25] MEDS: oxyCODONE 5 MG Tablet PO ×4 (04:03→21:18)
[2023-11-25] MEDS: Enoxaparin 40 MG/0.4 ML Syringe SC (05:53)
[2023-11-25] MEDS: Acetaminophen 500 MG Tablet 1000 MG PO ×3 (05:54→21:19)
[2023-11-25] MEDS: Levothyroxine 50 MCG Tablet PO (05:56)
--- NOTE | 2023-11-25 06:00 | PCM.PN.ORT ---
Subjective Subjective Patient seen and examined. He denies any new complaints. He reports some soreness in his left hip but states pain is improved from before surgery. He denies any fevers, chills, nausea or vomiting, chest pain or shortness of breath. Patient has not been out of bed yet but was preparing to get out of bed with nursing staff upon my arrival. Objective Data Objective Data Vital Signs: Vital Signs Temp Pulse Resp BP Pulse Ox O2 Del Method O2 Flow Rate 98.5 F 62 16 122/60 H 95 Nasal Cannula 2 11/25/23 04:04 11/25/23 04:04 11/25/23 04:04 11/25/23 04:04 11/25/23 04:04 11/25/23 04:04 11/25/23 04:04 Oxygen Flow Rate (L/min) 2 Oxygen Delivery Method Nasal Cannula Weight: 199 lb 9.352 oz Body Mass Index (BMI) 30.2 Intake & Output: Intake and Output for Last 24 Hours 11/23/23 11/24/23 11/25/23 23:59 23:59 23:59 Intake Total 1526.67 / 1526.67 110 / 110 Output Total 300 / 300 Balance 1526.67 / 1226.67 -190 / -190 Lab / Micro Data 11/24/23 05:16 11/24/23 05:16 Labs: Laboratory Results - last 24 hr 11/24/23 05:16: WBC 10.3, RBC 4.30 L, Hgb 12.8 L, Hct 39.5 L, MCV 91.9, MCH 29.8, MCHC 32.4, RDW Std Deviation 53.9 H, RDW Coeff of Elpidio 16.2 H, Plt Count 228, MPV 9.3, Immature Gran % (Auto) 0.500, Neut % (Auto) 83.1 H, Lymph % (Auto) 8.0 L, Saline % (Auto) 7.1, Eos % (Auto) 1.0, Baso % (Auto) 0.3, Absolute Neuts (auto) 8.6 H, Absolute Lymphs (auto) 0.83, Nucleated RBC % 0, PT 14.3, INR 1.1, APTT 27.6, Sodium 138, Potassium 4.5, Chloride 104, Carbon Dioxide 30.0, Anion Gap 4 L, BUN 24 H, Creatinine 1.17, Estim Creat Clear Calc 63.28, Est GFR (MDRD) Af Amer 79, Est GFR (MDRD) Non-Af 65, BUN/Creatinine Ratio 20.5 H, Glucose 83, Calcium 8.4 L, Phosphorus 3.3, Magnesium 2.0, Total Bilirubin 0.60, Direct Bilirubin 0.17, AST 18, ALT 24, Alkaline Phosphatase 75, Total Protein 6.1 L, Albumin 3.1 L, Globulin 3.0, Albumin/Globulin Ratio 1.0, Vitamin D 25-Hydroxy 69.8, TSH 0.19 L, Blood Type O NEGATIVE, Antibody Screen NEGATIVE Radiography Diagnostic Testing: Radiology Impression Hip X-Ray 11/24/23 19:05 IMPRESSION: No acute bony injury. Bilateral hip prosthesis in place. Electronically Signed: Arsalan Lawson DO at 19:25 EST Reading Location ID and State: [address] [place] [address] Tel [phone], Service support , Physical Exam Narrative General - A&Ox3, NAD. VSS/AF Left lower extremity -incisional dressing C/D/I. SILT Sural, Saphenous, SPN, DPN, Tibial N. distributions. DP, PT 2+. BCR. DF, PF, EHL 5/5. No calf TTP. Assessment & Plan Assessment/Plan (1) Closed left hip fracture: QUALIFIERS: Encounter type: initial encounter Qualified Code(s): S72.002A - Fracture of unspecified part of neck of left femur, initial encounter for closed fracture PLAN: POD# 1 s/p left hip hemiarthroplasty - Morning labs pending. Patient appears to be doing well this morning. Mobilize with therapy. - Pain control - Medicine following for medical management - PT/[id number] as tolerated, posterior precautions - DVT PPX -Lovenox 40 mg subcu daily, ESMEs, KIMBERLY angela, early mobilization - Case management - D/C planning. Suspect need for SNF
--- NOTE | 2023-11-25 07:06 | PN.HOSP_ITS ---
Reason for Visit Reason for Visit: Diagnoses Fracture of unspecified part of neck of left femur, initial encounter for closed fracture (11/24/23) Unspecified fall, initial encounter (11/24/23) Unspecified place in unspecified non-institutional (private) residence as the place of occurrence of the external cause (11/24/23) Subjective Subjective Feeling ok. Objective Data Objective Data Vital Signs: Vital Signs Temp Pulse Resp BP Pulse Ox O2 Del Method O2 Flow Rate 36.9 C 62 16 122/60 H 95 Nasal Cannula 2 11/25/23 04:04 11/25/23 04:04 11/25/23 04:04 11/25/23 04:04 11/25/23 04:04 11/25/23 04:04 11/25/23 04:04 Oxygen Flow Rate (L/min) 2 Oxygen Delivery Method Nasal Cannula Weight: 90.53 kg Body Mass Index (BMI) 30.2 Intake & Output: Intake and Output for Last 24 Hours 11/23/23 11/24/23 11/25/23 23:59 23:59 23:59 Intake Total 1526.67 / 1526.67 110 / 110 Output Total 800 / 800 Balance 1526.67 / 1226.67 -690 / -690 Lab / Micro Data 11/25/23 07:02 11/25/23 07:09 Labs: Laboratory Results - last 24 hr 11/24/23 05:16: Sodium 138, Potassium 4.5, Chloride 104, Carbon Dioxide 30.0, Anion Gap 4 L, BUN 24 H, Creatinine 1.17, Estim Creat Clear Calc 63.28, Est GFR (MDRD) Af Amer 79, Est GFR (MDRD) Non-Af 65, BUN/Creatinine Ratio 20.5 H, Glucose 83, Calcium 8.4 L, Phosphorus 3.3, Magnesium 2.0, Total Bilirubin 0.60, Direct Bilirubin 0.17, AST 18, ALT 24, Alkaline Phosphatase 75, Total Protein 6.1 L, Albumin 3.1 L, Globulin 3.0, Albumin/Globulin Ratio 1.0, Vitamin D 25- Hydroxy 69.8, TSH 0.19 L, Blood Type O NEGATIVE, Antibody Screen NEGATIVE Radiography Diagnostic Testing: Radiology Impression Hip X-Ray 11/24/23 19:05 IMPRESSION: No acute bony injury. Bilateral hip prosthesis in place. Electronically Signed: Arsalan Lawson DO at 19:25 EST Reading Location ID and State: [address] [place] [address] Tel [phone], Service support , Physical Exam Const Constitutional Narrative: appears confused. Does not recall meeting me yesterday. Resp normal respiratory effort, no retractions, no use of accessory muscles and clear to auscultation bilaterally Cardio regular rate, regular rhythm, S1 normal heart sound and S2 normal heart sound GI normal to inspection, nondistended, normoactive bowel sounds, soft to palpation and non-tender Neuro Sensorium / Orientation: awake and alert Assessment & Plan Assessment/Plan (1) Closed left hip fracture: QUALIFIERS: Encounter type: initial encounter Qualified Code(s): S72.002A - Fracture of unspecified part of neck of left femur, initial encounter for closed fracture (2) Fall at home: QUALIFIERS: Encounter type: initial encounter Qualified Code(s): W19.XXXA - Unspecified fall, initial encounter; Y92.009 - Unspecified place in unspecified non-institutional (private) residence as the place of occurrence of the external cause PLAN: Plan Left hip fracture * s/p mechanical fall * s/p left hip hemiarthroplasty 11/23. Complicated by broken drill bit that was unable to be retrieved during surgery. Broken bit on x-ray noted at the lateral shoulder of the prosthesis embedded within the proximal femur. * PT OT * 25-hydroxy vitamin D level is 69.8. Does not require placement * Follow up with orthopaedics in 2 weeks for routine follow up and follow up xray of broken drill bit. * I did inform pt about the broken drill bit and will need follow up with orthopaedics. Alcohol abuse * remote history. * thiamine and folate * pt not going through alcohol withdrawal. Confusion * still confused today as yesterday. I thought it was due to phenobarbital yesterday, but that was discontinued. * Perhaps it was the patient just be awoken. Monitor. Chronic conditions: * History of CVA; with residual Right hemiparesis * History of parkinsonism * Essential hypertension - Resume current management. * Hyperlipidemia - Continue statin. * Hypothyroidism -continue with levothyroxine. TSH low at 0.19. Will check a free T4. * Obesity; with BMI of 30.3 this admission plus BETTY; on CPAP - Weight loss will be recommended. Continue nocturnal CPAP as previous. * CAD; status post [place] and CABG x 5 (2018) - Noted. * History of ischemic cardiomyopathy; with LVEF ~40% plus history of n onrheumatic mitral regurgitation - Resume home regimen. * History of primary pancreatic neuroendocrine tumor - Noted. * History of colonic diverticulosis * History of tracheal stenosis * History of syncope * Trigeminal neuralgia * IBS; of constipation type on Linzess - Continue Linzess as previous. * GERD - Resume PPI. * BPH with overactive bladder - Stable on current medical regimen. * Depression - Continue home medications. DVT prophylaxis - SCDs Charges/Coding Visit Charges Inpatient E&M: 81320 Subs Hosp L2
[2023-11-25 07:46] LABS: Absolute Lymphocyte Count 0.71 X10^3/uL (0.83-4.51); Absolute Neutrophil Count 7.9 X10^3/uL (2.0-7.7); Basophil# 0.04 X10^3/uL; Basophil% 0.4 % (0-1); Eosinophil# 0.25 X10^3/uL; Eosinophils% 2.5 % (0-5); Hemoglobin 11.5 g/dL (13.0-16.5); Lymphocyte # 0.71 X10^3/ul (0.83-4.51); Lymphocyte % 7.2 % (19-41); Mean Corp Hgb Conc 31.1 g/dL (32-36); Mean Corpuscular Volume 93.4 fL (80-94); Mean Platelet Vol. 9.3 fl (6.2-12.0); Monocyte% 9.1 % (0-10); NRBC Flagged by Analyzer 0 % (0-5); Neutrophil # 7.89 X10^3/uL (2.7-7.7); Neutrophil % 80.3 % (47-70); Platelet Count 215 K/mm3 (150-450); RBC Distribution Width CV 16.8 % (11.6-14.6); RBC Distribution Width SD 57.2 fl (35.1-43.9); Red Blood Count 3.96 M/mm3 (4.6-6.2); White Blood Count 9.8 K/mm3 (4.4-11.0)
[2023-11-25 07:58] LABS: Anion Gap 2 (5-15); BUN 17 mg/dL (7-18); BUN/Creat Ratio 13.6 RATIO (10-20); Calcium,Total 7.7 mg/dL (8.5-10.1); Chloride 105 mmol/L (98-107); Creatinine, Serum 1.25 mg/dL (0.70-1.30); EST Glomerular Filtration Rate 61 mL/min (>60); Est Glom Filt Rate - Afr Amer 73 mL/min (>60); Estimated Creatinine Clearance 59.23 ml/min; Glucose 115 mg/dL (74-106); Sodium Level 137 mmol/L (136-145)
[2023-11-25] MEDS: Calcium Carbonate 500 MG Tablet PO ×3 (08:39→17:33)
[2023-11-25] MEDS: Senna/Docusate Sodium 1 Tablet 2 TABLET PO ×2 (08:39→21:20)
[2023-11-25] MEDS: DULoxetine Hcl 60 MG Capsule PO (08:39)
[2023-11-25] MEDS: Potassium Chloride Oral Tablet 20 MEQ PO ×2 (08:40→17:34)
[2023-11-25] MEDS: Furosemide 40 MG Tablet PO (08:40)
[2023-11-25] MEDS: Carvedilol 3.125 MG TABLET PO ×2 (08:40→17:33)
[2023-11-25] MEDS: Losartan Potassium 50 MG Tablet PO (08:40)
[2023-11-25] MEDS: Aspirin E.C. 81 MG Tablet PO (08:40)
[2023-11-25] MEDS: Amiodarone 200 MG Tablet 100 MG PO (08:40)
[2023-11-25] MEDS: Folic Acid 1 MG Tablet PO (08:40)
[2023-11-25] MEDS: Tolterodine Tartrate 2 MG CAP.SA PO (08:40)
[2023-11-25] MEDS: Thiamine Hydrochloride 100 MG Tablet PO (08:40)
[2023-11-25] MEDS: Vibegron 75 MG TABLET PO (08:41)
[2023-11-25] MEDS: Pantoprazole Sodium 20 MG Tablet PO (08:41)
[2023-11-25] MEDS: Multivitamins,Ther W-Minerals Tablet 1 TABLET PO (08:41)
[2023-11-25] MEDS: Finasteride 5 MG Tablet PO (08:41)
[2023-11-25] MEDS: 0.9% Normal Saline (250mL Bag) 250 ML 15 ML IV (17:34)
[2023-11-25] MEDS: Furosemide 20 MG Tablet PO (17:35)
[2023-11-25] MEDS: 0.9% Saline Lock 10 ML Syringe IV (17:39)
[2023-11-25] MEDS: Tamsulosin HCl 0.4 MG Capsule 0.400000000000000022 MG PO (21:18)
[2023-11-25] MEDS: Mirtazapine 30 MG Tablet PO (21:20)
[2023-11-25] MEDS: Atorvastatin Calcium 40 MG Tablet PO (21:20)
[2023-11-25 23:07] LABS: Amphetamine Urine VISTA NEGATIVE (<1000 ng/mL); Barbiturate Urine VISTA NEGATIVE (< 200 ng/mL); Benzodiazepine Urine VISTA NEGATIVE (< 200 ng/mL); Cocaine Urine VISTA NEGATIVE (< 300 ng/mL); Ecstacy Urine VISTA NEGATIVE (< 500 ng/mL); Methadone Urine VISTA NEGATIVE (< 300 ng/mL); PCP Urine VISTA NEGATIVE (< 25 ng/mL); THC Urine VISTA NEGATIVE (< 50 ng/mL); Vista UDS pH Range 5
[2023-11-26] VITALS (8 sets, daily range): BP systolic 117–124; BP diastolic 60–68; PULSE 57–72; RESP 14–16; TEMP 36.4–37.8; O2SAT 87–97
[2023-11-26] MEDS: Enoxaparin 40 MG/0.4 ML Syringe SC (05:15)
[2023-11-26] MEDS: Levothyroxine 50 MCG Tablet PO (05:15)
[2023-11-26] MEDS: Acetaminophen 500 MG Tablet 1000 MG PO ×3 (05:15→20:54)
[2023-11-26] MEDS: LINACLOTIDE 145 MCG CAPSULE PO (05:16)
[2023-11-26] MEDS: oxyCODONE 5 MG Tablet PO ×4 (05:26→18:11)
--- NOTE | 2023-11-26 07:23 | PN.HOSP_ITS ---
Reason for Visit Reason for Visit: Diagnoses Fracture of unspecified part of neck of left femur, initial encounter for closed fracture (11/24/23) Unspecified fall, initial encounter (11/24/23) Unspecified place in unspecified non-institutional (private) residence as the place of occurrence of the external cause (11/24/23) Subjective Subjective No events feels well. Objective Data Objective Data Vital Signs: Vital Signs Temp Pulse Resp BP Pulse Ox O2 Del Method O2 Flow Rate 36.4 C L 57 L 16 118/60 97 Nasal Cannula 2 11/26/23 05:13 11/26/23 05:13 11/26/23 05:13 11/26/23 05:13 11/26/23 05:13 11/26/23 05:13 11/26/23 05:13 Oxygen Flow Rate (L/min) 2 Oxygen Delivery Method Nasal Cannula Weight: 90.53 kg Body Mass Index (BMI) 30.2 Intake & Output: Intake and Output for Last 24 Hours 11/24/23 11/25/23 11/26/23 23:59 23:59 23:59 Intake Total 1526.67 / 1526.67 1330 / 1430 200 / 200 Output Total 1300 / 1500 500 / 500 Balance 1526.67 / 1226.67 30 / -70 -300 / -300 Lab / Micro Data 11/25/23 07:02 11/25/23 07:09 Labs: Laboratory Results - last 24 hr 11/25/23 07:02: WBC 9.8, RBC 3.96 L, Hgb 11.5 L, Hct 37.0 L, MCV 93.4, MCH 29.0, MCHC 31.1 L, RDW Std Deviation 57.2 H, RDW Coeff of Elpidio 16.8 H, Plt Count 215, MPV 9.3, Immature Gran % (Auto) 0.500, Neut % (Auto) 80.3 H, Lymph % (Auto) 7.2 L, Crockett % (Auto) 9.1, Eos % (Auto) 2.5, Baso % (Auto) 0.4, Absolute Neuts (auto) 7.9 H, Absolute Lymphs (auto) 0.71 L, Nucleated RBC % 0 11/25/23 07:07: Free T4 1.40 11/25/23 07:09: Sodium 137, Potassium 4.0, Chloride 105, Carbon Dioxide 30.0, Anion Gap 2 L, BUN 17, Creatinine 1.25, Estim Creat Clear Calc 59.23, Est GFR (MDRD) Af Amer 73, Est GFR (MDRD) Non-Af 61, BUN/Creatinine Ratio 13.6, Glucose 115 H, Calcium 7.7 L 11/25/23 22:00: Urine Opiates Screen POSITIVE H, Urine Methadone Screen NEGATIVE, Ur Barbiturates Screen NEGATIVE, Ur Phencyclidine Scrn NEGATIVE, Ur Amphetamines Screen NEGATIVE, MDMA (Ecstasy) Screen NEGATIVE, U Benzodiazepines Scrn NEGATIVE, Urine Cocaine Screen NEGATIVE, U Cannabinoids Screen NEGATIVE, Ur Drug Screen Comment Physical Exam Const alert and no apparent distress HEENT head/scalp atraumatic and moist oral mucous membranes Neuro Sensorium / Orientation: awake and alert Assessment & Plan Assessment/Plan (1) Closed left hip fracture: QUALIFIERS: Encounter type: initial encounter Qualified Code(s): S72.002A - Fracture of unspecified part of neck of left femur, initial encounter for closed fracture (2) Fall at home: QUALIFIERS: Encounter type: initial encounter Qualified Code(s): W19.XXXA - Unspecified fall, initial encounter; Y92.009 - Unspecified place in unspecified non-institutional (private) residence as the place of occurrence of the external cause PLAN: Plan Left hip fracture * s/p mechanical fall * s/p left hip hemiarthroplasty 11/23. Complicated by broken drill bit that was unable to be retrieved during surgery. Broken bit on x-ray noted at the lateral shoulder of the prosthesis embedded within the proximal femur. * PT OT * 25-hydroxy vitamin D level is 69.8. Does not require placement * Follow up with orthopaedics in 2 weeks for routine follow up and follow up xray of broken drill bit. Dr. Dorman has addressed the broken drill bit with the patient and does not feel to be an issue in the future but does warrant further monitoring. * I did inform pt about the broken drill bit and will need follow up with orthopaedics. Alcohol abuse * Per patient his last drink was 4 months ago * thiamine and folate * pt not going through alcohol withdrawal. Chronic conditions: * History of CVA; with residual Right hemiparesis * History of parkinsonism * Essential hypertension - Resume current management. * Hyperlipidemia - Continue statin. * Hypothyroidism -continue with levothyroxine. TSH low at 0.19. Will check a free T4. * Obesity; with BMI of 30.3 this admission plus BETTY; on CPAP - Weight loss will be recommended. Continue nocturnal CPAP as previous. * CAD; status post [place] and CABG x 5 (2018) - Noted. * History of ischemic cardiomyopathy; with LVEF ~40% plus history of nonrheu matic mitral regurgitation - Resume home regimen. * History of primary pancreatic neuroendocrine tumor - Noted. * History of colonic diverticulosis * History of tracheal stenosis * History of syncope * Trigeminal neuralgia * IBS; of constipation type on Linzess - Continue Linzess as previous. * GERD - Resume PPI. * BPH with overactive bladder - Stable on current medical regimen. * Depression - Continue home medications. DVT prophylaxis - SCDs Charges/Coding Visit Charges Inpatient E&M: 37593 Subs Hosp L1
--- NOTE | 2023-11-26 08:25 | PN.ORTHO_ITS ---
Subjective Subjective Patient seen and examined. Denies any new complaints. Denies fevers, chills, nausea vomiting, chest pain or shortness of breath. Pain controlled with current pain regimen. He he states he feels he did not do well with physical therapy yesterday. Objective Data Objective Data Vital Signs: Vital Signs Temp Pulse Resp BP Pulse Ox O2 Del Method O2 Flow Rate 97.6 F L 57 L 16 118/60 97 Nasal Cannula 2 11/26/23 05:13 11/26/23 05:13 11/26/23 05:13 11/26/23 05:13 11/26/23 05:13 11/26/23 05:13 11/26/23 05:13 Oxygen Flow Rate (L/min) 2 Oxygen Delivery Method Nasal Cannula Weight: 199 lb 9.352 oz Body Mass Index (BMI) 30.2 Intake & Output: Intake and Output for Last 24 Hours 11/24/23 11/25/23 11/26/23 23:59 23:59 23:59 Intake Total 1526.67 / 1526.67 1330 / 1430 200 / 200 Output Total 1300 / 1500 500 / 500 Balance 1526.67 / 1226.67 30 / -70 -300 / -300 Lab / Micro Data 11/25/23 07:02 11/25/23 07:09 Labs: Laboratory Results - last 24 hr 11/25/23 07:07: Free T4 1.40 11/25/23 22:00: Urine Opiates Screen POSITIVE H, Urine Methadone Screen NEGATIVE, Ur Barbiturates Screen NEGATIVE, Ur Phencyclidine Scrn NEGATIVE, Ur Amphetamines Screen NEGATIVE, MDMA (Ecstasy) Screen NEGATIVE, U Benzodiazepines Scrn NEGATIVE, Urine Cocaine Screen NEGATIVE, U Cannabinoids Screen NEGATIVE, Ur Drug Screen Comment Physical Exam Narrative General - A&Ox3, NAD. VSS/AF Left lower extremity -incisional dressing C/D/I. SILT Sural, Saphenous, SPN, DPN, Tibial N. distributions. DP, PT 2+. BCR. DF, PF, EHL /5. No calf TTP. Assessment & Plan Assessment/Plan (1) Closed left hip fracture: QUALIFIERS: Encounter type: initial encounter Qualified Code(s): S72.002A - Fracture of unspecified part of neck of left femur, initial encounter for closed fracture PLAN: POD# 2 s/p left hip hemiarthroplasty - Patient appears to be doing well this morning. Mobilize with therapy as tolerated. - I discussed the broken drill bit in the patient's left proximal femur just adjacent to the femoral prosthesis. I explained that this was not easily remov ed and I made the decision to leave this embedded in bone to mitigate risk of periprosthetic fracture. I explained that we will follow the drill bit on serial x-rays and is unlikely to cause any problems in the future. Patient expressed understanding. - Pain control - Medicine following for medical management - [id number] as tolerated, posterior precautions - DVT PPX -Lovenox 40 mg subcu daily, SCDs, KIMBERLY angela, early mobilization - Case management - D/C planning. SNF
[2023-11-26] MEDS: Amiodarone 200 MG Tablet 100 MG PO (09:26)
[2023-11-26] MEDS: DULoxetine Hcl 60 MG Capsule PO (09:26)
[2023-11-26] MEDS: Carvedilol 3.125 MG TABLET PO ×2 (09:26→18:11)
[2023-11-26] MEDS: Losartan Potassium 50 MG Tablet PO (09:26)
[2023-11-26] MEDS: Thiamine Hydrochloride 100 MG Tablet PO (09:26)
[2023-11-26] MEDS: Senna/Docusate Sodium 1 Tablet 2 TABLET PO ×2 (09:28→20:55)
[2023-11-26] MEDS: Pantoprazole Sodium 20 MG Tablet PO (09:29)
[2023-11-26] MEDS: Aspirin E.C. 81 MG Tablet PO (09:29)
[2023-11-26] MEDS: Folic Acid 1 MG Tablet PO (09:29)
[2023-11-26] MEDS: Finasteride 5 MG Tablet PO (09:30)
[2023-11-26] MEDS: Tolterodine Tartrate 2 MG CAP.SA PO (09:30)
[2023-11-26] MEDS: Multivitamins,Ther W-Minerals Tablet 1 TABLET PO (09:30)
[2023-11-26] MEDS: Potassium Chloride Oral Tablet 20 MEQ PO ×2 (09:30→18:11)
[2023-11-26] MEDS: Furosemide 40 MG Tablet PO (09:30)
[2023-11-26] MEDS: Calcium Carbonate 500 MG Tablet PO ×3 (09:31→18:11)
[2023-11-26] MEDS: Vibegron 75 MG TABLET PO (09:31)
[2023-11-26] MEDS: Furosemide 20 MG Tablet PO (18:11)
[2023-11-26] MEDS: Atorvastatin Calcium 40 MG Tablet PO (20:54)
[2023-11-26] MEDS: Tamsulosin HCl 0.4 MG Capsule 0.400000000000000022 MG PO (20:55)
[2023-11-26] MEDS: Mirtazapine 30 MG Tablet PO (20:55)
[2023-11-27] MEDS: Enoxaparin 40 MG/0.4 ML Syringe SC (05:33)
[2023-11-27] MEDS: LINACLOTIDE 145 MCG CAPSULE PO (05:34)
[2023-11-27] MEDS: Levothyroxine 25 MCG TABLET PO (05:34)
[2023-11-27] MEDS: Acetaminophen 500 MG Tablet 1000 MG PO ×2 (05:34→13:12)
[2023-11-27] MEDS: oxyCODONE 5 MG Tablet PO ×2 (05:37→09:41)
[2023-11-27 05:41] VITALS: BP 135/65; PULSE 60; RESP 16; TEMP 37; O2SAT 97
[2023-11-27 06:00] VITALS: BMI 31.5
[2023-11-27] MEDS: Senna/Docusate Sodium 1 Tablet 2 TABLET PO (09:24)
[2023-11-27] MEDS: Calcium Carbonate 500 MG Tablet PO ×2 (09:24→11:23)
[2023-11-27] MEDS: Potassium Chloride Oral Tablet 20 MEQ PO (09:24)
[2023-11-27] MEDS: Amiodarone 200 MG Tablet 100 MG PO (09:25)
[2023-11-27] MEDS: Losartan Potassium 50 MG Tablet PO (09:25)
[2023-11-27] MEDS: Folic Acid 1 MG Tablet PO (09:25)
[2023-11-27] MEDS: Pantoprazole Sodium 20 MG Tablet PO (09:25)
[2023-11-27] MEDS: Tolterodine Tartrate 2 MG CAP.SA PO (09:25)
[2023-11-27] MEDS: Multivitamins,Ther W-Minerals Tablet 1 TABLET PO (09:25)
[2023-11-27] MEDS: Carvedilol 3.125 MG TABLET PO (09:25)
[2023-11-27] MEDS: Thiamine Hydrochloride 100 MG Tablet PO (09:25)
[2023-11-27] MEDS: Furosemide 40 MG Tablet PO (09:25)
[2023-11-27] MEDS: Aspirin E.C. 81 MG Tablet PO (09:25)
[2023-11-27] MEDS: Vibegron 75 MG TABLET PO (09:25)
[2023-11-27] MEDS: Finasteride 5 MG Tablet PO (09:26)
[2023-11-27] MEDS: DULoxetine Hcl 60 MG Capsule PO (09:26)
[2023-11-27 09:29] VITALS: BP 117/60; PULSE 62; RESP 18; TEMP 37.1; O2SAT 92
[2023-11-27 09:36] VITALS: O2SAT 94
[2023-11-27 09:57] VITALS: O2SAT 92
--- NOTE | 2023-11-27 10:30 | CASEMGMT ---
Social Work SW spoke with Margo in [facility] post accute. Pt is currently being reviewed for admission to the inpatient rehab unit. SW will await determination of acceptance. MICHEAL Vitale
--- NOTE | 2023-11-27 10:33 | CASEMGMT ---
Addendum entered by Leslie Chacko 11/27/23 13:43: Social Work Pt has been accepted into the TCU and can admit today. Physician updated and pt is ready for discharge. SW met with pt and and discussed dc plan. Pt and agreeable to dischrage to TCU. DC orders faxed to TCU and Margo in TCU notified of dc today. Nursing updated. Disposition: TCU, skilled level of care MICHEAL Vitale Original Note: Social Work SW spoke with Margo in [facility] post accute. Pt is currently being reviewed for admission to the TCU. LANETTE will await determination of acceptance. MICHEAL Vitale
--- NOTE | 2023-11-27 12:54 | PCM.TXEXTCAR ---
Diet Diet Order/Speech Therapy: 11/24/23 21:59 Diet: Regular - General Is pt able to select menu?: No Routine Orders/Code Status Suppository Type: Dulcolax 10mg Suppository Frequency: Daily PRN Wound(s) LEFT HIP: Wound Type: Surgical Incision Therapies Extremity Affected:: Left Lower Physical Therapy: Eval and Treat Occupational Therapy: Eval and Treat Speech Therapy: Eval and Treat Problem/Diagnosis (1) Closed left hip fracture: Status: Acute Code(s): S72.002A - Fracture of unspecified part of neck of left femur, initial encounter for closed fracture (2) Fall at home: Status: Acute Code(s): W19.XXXA - Unspecified fall, initial encounter; Y92.009 - Unspecified place in unspecified non-institutional (private) residence as the place of occurrence of the external cause Allergies/Procedures Done in Hospital Allergies lisinopril Adverse Reaction (Verified 10/20/23 12:25) cough Type of Care/Length of Stay Estimated LOS: Convalescent Care Less Than 30 days Type of Care Needed: Skilled Rehab Potential: Good Prognosis: Good Additional Orders/Day of Discharge Day of Discharge: 11/27/23 Discharge Plan Admission Admit Date/Time: 11/24/23 02:35 Primary Reason for Your Visit: Left displaced femoral neck fracture Attending Provider: Leo Leal Primary Care Provider: Kaylin Hui Consulting Providers: Ramesh Dorman; Mathieu Talley; Shankar Billings Discharge Orders/Prescriptions Prescriptions: New acetaminophen 500 mg Tablet 1,000 mg PO Q8 Qty: 0 0RF Rx Instructions: 1 g every 8 hourly for 1 week and then every 8 hourly as needed for moderate to severe pain sennosides-docusate sodium [Stool Softener-Stimulant Laxat] 8.6-50 mg Tablet 2 tab PO BID PRNQty: 0 0RF Rx Instructions: Hold if more than 2 bowel movements per day thiamine HCl (vitamin B1) [Vitamin B-1] 100 mg Tablet 100 mg PO DAILYCM Qty: 0 0RF folic acid 1 mg Tablet 1 mg PO DAILY@0800 Qty: 0 0RF oxycodone 5 mg Tablet 5 mg PO Q4H PRN PRN (Reason: Pain Score 6-10) Qty: 0 0RF Rx Instructions: For severe pain, 7-07/04 intensity Therapeutic-M 9 mg iron-400 mcg Tablet 1 tab PO BREAKFAST Qty: 0 0RF calcium carbonate 200 mg calcium (500 mg) Tablet,Chewable 500 mg PO TIDCM Qty: 0 0RF Eliquis 2.5 mg tablet 2.5 mg PO BID 30 Days Qty: 60 0RF Continued aspirin 81 mg tablet,delayed release (DR/EC) 81 mg PO QDAY omeprazole 20 mg tablet,delayed release (DR/EC) 20 mg PO DAILY potassium chloride 10 mEq tablet extended release 20 meq PO BID duloxetine 60 mg capsule,delayed release(DR/EC) 60 mg PO DAILY furosemide 40 mg tablet 20 mg PO .COMPLEX Rx Instructions: 40mg in AM 20mg in PM ergocalciferol (vitamin D2) 1,250 mcg (50,000 unit) capsule 1,250 mcg PO QWEEK Rx Instructions: every monday Myrbetriq 50 mg tablet extended release 24 hr 50 mg PO DAILY Patient Comments: TAKE 1 TABLET BY MOUTH ONCE DAILY metolazone 2.5 mg Tablet 2.5 mg PO DAILY PRN (Reason: FLUID RETENTION) Qty: 0 0RF atorvastatin 40 mg Tablet 40 mg PO QHS Qty: 0 0RF levothyroxine 50 mcg Tablet 50 mcg PO SuSa@0600 Qty: 0 0RF mirtazapine 30 mg Tablet 30 mg PO QHS Qty: 0 0RF nitroglycerin 0.4 mg Tablet, Sublingual 0.4 mg sublingual Q5M PRN (Reason: Cardiac/Chest Pain) Qty: 0 0RF losartan 50 mg Tablet 50 mg PO DAILY 30 Days Qty: 30 0RF finasteride 5 mg Tablet 5 mg PO DAILY 30 Days Qty: 30 0RF oxybutynin chloride 10 mg tablet extended release 24hr 10 mg PO DAILY Patient Comments: TAKE 1 TABLET BY MOUTH ONCE DAILY amiodarone 200 mg tablet 100 mg PO DAILY levothyroxine 25 mcg Tablet 25 mcg PO MOTUWETHFR tamsulosin 0.4 mg Capsule 0.4 mg PO QHS carvedilol 3.125 mg tablet 3.125 mg PO BIDCM Qty: 180 3RF Changed Linzess 145 mcg capsule 145 mcg PO DAILY PRN 30 Days Qty: 0 0RF Rx Instructions: Can use Senna S, 2 tablet twice daily as needed for constipation Held acetaminophen [Tylenol] 325 mg capsule 650 mg PO Q6H Hold Instructions: Hold while taking acetaminophen 1 g every 8 hourly after hip surgery. tramadol 50 mg Tablet 50 mg PO DAILY PRN PRN (Reason: Pain Score 1-10) Hold Instructions: Hold while taking oxycodone. Referrals / Follow Up: Kaylin Hui PA [Primary Care Provider] - Disposition Disposition (needs filled in before D/C Order can be placed): Residential Facility (1) Closed left hip fracture Qualifiers: Encounter type: initial encounter Qualified Code(s): S72.002A - Fracture of unspecified part of neck of left femur, initial encounter for closed fracture (2) Fall at home Qualifiers: Encounter type: initial encounter Qualified Code(s): W19.XXXA - Unspecified fall, initial encounter; Y92.009 - Unspecified place in unspecified non-institutional (private) residence as the place of occurrence of the external cause
--- NOTE | 2023-11-27 13:11 | DS.PCM_ITS ---
Providers Date of Admission: 11/24/23 Date of Discharge: 11/27/23 Primary Care Physician: MARIELENA Edwards Consultations 11/24/23 01:07 Consult: Orthopedics Routine Consulting Provider: Ramesh Dorman Reason for Consult: Left hip fracture after fall. EMERGENT Consult: No MD Notified: Yes Date Notified: 11/24/23 Time Notified: 06:05 Method of Notification: Text Reason For Visit: LEFT HIP FRACTURE AFTER FALL Diagnosis Discharge Diagnosis (1) Closed left hip fracture: Status: Acute Code(s): S72.002A - Fracture of unspecified part of neck of left femur, initial encounter for closed fracture Qualifiers: Encounter type: initial encounter Qualified Code(s): S72.002A - Fract ure of unspecified part of neck of left femur, initial encounter for closed fracture (2) Fall at home: Status: Acute Code(s): W19.XXXA - Unspecified fall, initial encounter; Y92.009 - Unspecified place in unspecified non-institutional (private) residence as the place of occurrence of the external cause Qualifiers: Encounter type: initial encounter Qualified Code(s): W19.XXXA - Unspecified fall, initial encounter; Y92.009 - Unspecified place in unspecified non-institutional (private) residence as the place of occurrence of the external cause Plan This is 73-year-old gentleman who was directly admitted from [facility] due to left rib fracture after fall. Patient was accepted by Dr. Dorman, orthopedic surgeon admitted to the hospitalist service. Left hip fracture * s/p mechanical fall * s/p left hip hemiarthroplasty 11/23. Complicated by broken drill bit during tunnel drill that was unable to be retrieved during surgery. Broken bit on x- ray noted at the lateral shoulder of the prosthesis embedded within the proximal femur. * PT OT * 25-hydroxy vitamin D level is 69.8. Does not require placement * Follow up with orthopaedics in 2 weeks for routine follow up and follow up xray of broken drill bit. Dr. Dorman has addressed the broken drill bit with the patient and does not feel to be an issue in the future but does warrant further monitoring. * I did inform pt about the broken drill bit and advised follow up with orthopaedics, Dr. Dorman. Chronic alcohol use disorder: * Per patient his last drink was 4 months ago * thiamine and folate * pt not going through alcohol withdrawal. Chronic conditions: * History of CVA; with residual Right hemiparesis: Patient on baby aspirin. * History of parkinsonism * Essential hypertension - Resume current management. * Hyperlipidemia - Continue statin. * Hypothyroidism -continue with levothyroxine. TSH low at 0.19. Free T41.40, high, upper limit of normal. On levothyroxine 25 mcg 5 days a week, decreased to 4 days a week. Follow-up thyroid test in 3 months * Obesity; with BMI of 30.3 this admission plus BETTY; on CPAP - Weight loss recommended. Continue nocturnal CPAP as previous. * CAD; status post [place] and CABG x 5 (2018) - Noted. * History of ischemic cardiomyopathy; with LVEF ~40% plus history of nonrheumatic mitral regurgitation - Resume home regimen. * History of primary pancreatic neuroendocrine tumor - Noted. * History of colonic diverticulosis * History of tracheal stenosis * History of syncope * Trigeminal neuralgia * IBS; of constipation type on Linzess - Continue Linzess as previous. * GERD - Resume PPI. * BPH with overactive bladder - Stable on current medical regimen. * Depression - Continue home medications. DVT prophylaxis - SCDs Medications at Discharge Home Medications omeprazole 20 mg tablet,delayed release 20 mg PO DAILY reflux 09/26/18 potassium chloride 10 mEq tablet,extended release 20 meq PO BID supplement 11/18/19 aspirin 81 mg tablet,delayed release 81 mg PO QDAY heart health 02/01/22 duloxetine 60 mg capsule,delayed release 60 mg PO DAILY mental health 03/21/23 furosemide 40 mg tablet 20 mg PO .COMPLEX diuretic 03/21/23 mirabegron 50 mg tablet,extended release 24 hr (Myrbetriq) 50 mg PO DAILY BLADDER 05/19/23 atorvastatin 40 mg tablet 40 mg PO QHS cholesterol #0 tabs 07/06/23 levothyroxine 50 mcg tablet 50 mcg PO SuSa@0600 thyroid #0 tabs 07/06/23 metolazone 2.5 mg tablet 2.5 mg PO DAILY PRN FLUID RETENTION #0 tabs 07/06/23 mirtazapine 30 mg tablet 30 mg PO QHS sleep #0 tabs 07/06/23 nitroglycerin 0.4 mg sublingual tablet 0.4 mg sublingual Q5M PRN Cardiac/Chest Pain #0 tabs 07/06/23 finasteride 5 mg tablet 5 mg PO DAILY 30 days #30 tabs 07/28/23 losartan 50 mg tablet 50 mg PO DAILY 30 days #30 tabs 07/28/23 carvedilol 3.125 mg tablet 3.125 mg PO BIDCM BP #180 tabs 08/07/23 ergocalciferol (vitamin D2) 1,250 mcg (50,000 unit) capsule 1,250 mcg PO QWEEK vits 09/26/23 acetaminophen 325 mg capsule (Tylenol) 650 mg PO Q6H 11/24/23 amiodarone 200 mg tablet 100 mg PO DAILY heart rate 11/24/23 oxybutynin chloride 10 mg tablet,extended release 24 hr 10 mg PO DAILY bladder 11/24/23 tamsulosin 0.4 mg capsule 0.4 mg PO QHS bph 11/24/23 tramadol 50 mg tablet 50 mg PO DAILY PRN PRN Pain Score 1-10 11/24/23 acetaminophen 500 mg tablet 1,000 mg (2 x 500 mg) PO Q8 #0 tabs 11/27/23 apixaban 2.5 mg tablet (Eliquis) 2.5 mg PO BID 1 month #60 tabs 11/27/23 calcium carbonate 200 mg calcium (500 mg) chewable tablet 500 mg (2.5 x 200 mg calcium (500 mg)) PO TIDCM #0 tabs 11/27/23 folic acid 1 mg tablet 1 mg PO DAILY@0800 #0 tabs 11/27/23 levothyroxine 25 mcg tablet 25 mcg PO UD thyroid 30 days #0 tabs 11/27/23 linaclotide 145 mcg capsule (Linzess) 145 mcg PO DAILY PRN bowel 30 days #0 caps 11/27/23 multivitamin-iron 9 mg-folic acid 400 mcg-calcium and minerals tablet (Therapeutic-M) 1 tab PO BREAKFAST #0 tabs 11/27/23 oxycodone 5 mg tablet 5 mg PO Q4H PRN PRN Pain Score 6-10 #0 tabs 11/27/23 sennosides 8.6 mg-docusate sodium 50 mg tablet (Stool Softener-Stimulant Laxative) 2 tab PO BID PRN #0 tabs 11/27/23 thiamine HCl (vitamin B1) 100 mg tablet (Vitamin B-1) 100 mg PO DAILYCM #0 tabs 11/27/23 Physical Exam Narrative Seen and examined. Patient admitted for left hip fracture. History of chronic alcohol use disorder, compliant is drinking. asked about the broken drill bit but patient not having any pain or problem in walking. Advised to follow-up with orthopedic surgeon Dr. Dorman Physical exam General: Alert, Oriented x3, Cooperative HEENT: Atraumatic, PERRLA, EOMI, Normocephalic Oral: No Gingival or Mucosal Lesions/ Ulcerations Neck: Supple, No JVD, Negative Carotid Bruits Chest wall/Lungs: Air entry diminished in bilateral lung bases. No crepitation rhonchi. Cardiovascular: Regular rate, Regular Rhythm, Normal S1, Normal S2, systolic murmur present. Abdomen: Bowel Sounds Present, Soft, Non Tender, Non-Distended : No dysuria. No renal angle tenderness. No suprapubic tenderness. Extremities: No edema, Capillary Refill Less than 3 Seconds Skin: No bruise around the left hip. Musculoskeletal: Left hip surgical dressing is dry. No hematoma or localized tenderness. No Tenderness to Palpation of Joints or Extremities Neurological: Cranial nerves II-XII grossly intact, DTR 2+/4. No acute focal neurological deficit. Psych/Mental Status: Normal Affect, Appropriate. Weight / BMI Weight Weight: 208 lb 1.862 oz Body Mass Index (BMI) 31.5 ABG / Lab / Microbiology Data 11/25/23 07:02 11/25/23 07:09 Meaningful Use Info Meaningful Use Diagnoses (Choose all that apply): None applicable Discharge Plan Admission Admit Date/Time: 11/24/23 02:35 Primary Reason for Your Visit: Left displaced femoral neck fracture Attending Provider: Leo Leal Primary Care Provider: Kaylin Hui Consulting Providers: Ramesh Dorman; Mathieu Talley; Shankar Billings Discharge Orders/Prescriptions Prescriptions: New acetaminophen 500 mg Tablet 1,000 mg PO Q8 Qty: 0 0RF Rx Instructions: 1 g every 8 hourly for 1 week and then every 8 hourly as needed for moderate to severe pain sennosides-docusate sodium [Stool Softener-Stimulant Laxat] 8.6-50 mg Tablet 2 tab PO BID PRNQty: 0 0RF Rx Instructions: Hold if more than 2 bowel movements per day thiamine HCl (vitamin B1) [Vitamin B-1] 100 mg Tablet 100 mg PO DAILYCM Qty: 0 0RF folic acid 1 mg Tablet 1 mg PO DAILY@0800 Qty: 0 0RF oxycodone 5 mg Tablet 5 mg PO Q4H PRN PRN (Reason: Pain Score 6-10) Qty: 0 0RF Rx Instructions: For severe pain, 7-10/10 intensity Therapeutic-M 9 mg iron-400 mcg Tablet 1 tab PO BREAKFAST Qty: 0 0RF calcium carbonate 200 mg calcium (500 mg) Tablet,Chewable 500 mg PO TIDCM Qty: 0 0RF Eliquis 2.5 mg tablet 2.5 mg PO BID 30 Days Qty: 60 0RF Continued aspirin 81 mg tablet,delayed release (DR/EC) 81 mg PO QDAY omeprazole 20 mg tablet,delayed release (DR/EC) 20 mg PO DAILY potassium chloride 10 mEq tablet extended release 20 meq PO BID duloxetine 60 mg capsule,delayed release(DR/EC) 60 mg PO DAILY furosemide 40 mg tablet 20 mg PO .COMPLEX Rx Instructions: 40mg in AM 20mg in PM ergocalciferol (vitamin D2) 1,250 mcg (50,000 unit) capsule 1,250 mcg PO QWEEK Rx Instructions: every monday Myrbetriq 50 mg tablet extended release 24 hr 50 mg PO DAILY Patient Comments: TAKE 1 TABLET BY MOUTH ONCE DAILY metolazone 2.5 mg Tablet 2.5 mg PO DAILY PRN (Reason: FLUID RETENTION) Qty: 0 0RF atorvastatin 40 mg Tablet 40 mg PO QHS Qty: 0 0RF levothyroxine 50 mcg Tablet 50 mcg PO SuSa@0600 Qty: 0 0RF mirtazapine 30 mg Tablet 30 mg PO QHS Qty: 0 0RF nitroglycerin 0.4 mg Tablet, Sublingual 0.4 mg sublingual Q5M PRN (Reason: Cardiac/Chest Pain) Qty: 0 0RF losartan 50 mg Tablet 50 mg PO DAILY 30 Days Qty: 30 0RF finasteride 5 mg Tablet 5 mg PO DAILY 30 Days Qty: 30 0RF oxybutynin chloride 10 mg tablet extended release 24hr 10 mg PO DAILY Patient Comments: TAKE 1 TABLET BY MOUTH ONCE DAILY amiodarone 200 mg tablet 100 mg PO DAILY tamsulosin 0.4 mg Capsule 0.4 mg PO QHS carvedilol 3.125 mg tablet 3.125 mg PO BIDCM Qty: 180 3RF Changed Linzess 145 mcg capsule 145 mcg PO DAILY PRN 30 Days Qty: 0 0RF Rx Instructions: Can use Senna S, 2 tablet twice daily as needed for constipation levothyroxine 25 mcg Tablet 25 mcg PO UD 30 Days Qty: 0 0RF Rx Instructions: Advised to take on Monday, Monday, Monday and Monday; on odd days of the week Held acetaminophen [Tylenol] 325 mg capsule 650 mg PO Q6H Hold Instructions: Hold while taking acetaminophen 1 g every 8 hourly after hip surgery. tramadol 50 mg Tablet 50 mg PO DAILY PRN PRN (Reason: Pain Score 1-10) Hold Instructions: Hold while taking oxycodone. Referrals / Follow Up: Kaylin Hui PA [Primary Care Provider] - Disposition Disposition (needs filled in before D/C Order can be placed): Group Home Facility Charges/Coding Visit Charges Inpatient E&M: 67096 Disch Hosp >30min
[2023-11-27 14:49] VITALS: BP 110/55; PULSE 68; RESP 16; TEMP 37.2; O2SAT 92
== END 2023-11-27 14:51 | disposition skilled nursing facility (03) | DRG 522 ==
PROVIDERS: Emergency Medicine; Student in an Organized Health Care Education/Training Program; Admitting Provider Internal Medicine; PCP Physician Assistant; Visit Provider Internal Medicine
PROC: 0SRS0JA Replacement of Left Hip Joint, Femoral Surface with Synthetic Substitute, Uncemented, Open Approach (ICD-10-PCS; CPT 27125; principal; 2023-11-24 09:00)
DX: S72.002A Fracture of unspecified part of neck of left femur, initial encounter for closed fracture (principal); G81.91 Hemiplegia, unspecified affecting right dominant side; E03.9 Hypothyroidism, unspecified; F10.10 Alcohol abuse, uncomplicated; I10 Essential (primary) hypertension; F32.A Depression, unspecified; K58.9 Irritable bowel syndrome, unspecified; E78.5 Hyperlipidemia, unspecified; I25.5 Ischemic cardiomyopathy; G50.0 Trigeminal neuralgia; I25.10 Atherosclerotic heart disease of native coronary artery without angina pectoris; K21.9 Gastro-esophageal reflux disease without esophagitis; M54.50 Low back pain, unspecified; W19.XXXA Unspecified fall, initial encounter; I25.2 Old myocardial infarction; E66.9 Obesity, unspecified; Z80.0 Family history of malignant neoplasm of digestive organs; N32.81 Overactive bladder; Z87.891 Personal history of nicotine dependence; Z79.82 Long term (current) use of aspirin; Y92.009 Unspecified place in unspecified non-institutional (private) residence as the place of occurrence of the external cause; Z95.810 Presence of automatic (implantable) cardiac defibrillator; N40.0 Benign prostatic hyperplasia without lower urinary tract symptoms; Z95.1 Presence of aortocoronary bypass graft; Z68.30 Body mass index [BMI] 30.0-30.9, adult; Y90.9 Presence of alcohol in blood, level not specified
CPT/HCPCS: 36415; 73502; 80048; 80053; 80307; 82248; 82306; 83735; 84100; 84439; 84443; 85025; 85610; 85730; 86850; 86900; 86901; 88305; 88311; 93005; 94668; 97116; 97163; 97166; 97530; 97535; 99252; C1776; J7030; J7050; A4216; G0463; J2405

== ENCOUNTER 2023-11-27 14:58 | Inpatient (IN) | payer MEDICARE, BC, SELFPAY ==
[2023-11-27 15:05] VITALS: BP 112/59; PULSE 88; RESP 19; TEMP 36.2; O2SAT 98; BMI 31.1
[2023-11-27 15:18] VITALS: BMI 30.6
[2023-11-27] MEDS: Furosemide 20 MG Tablet PO (17:51)
[2023-11-27] MEDS: Carvedilol 3.125 MG TABLET PO (17:51)
[2023-11-27] MEDS: Calcium Carbonate 500 MG Tablet PO (17:51)
[2023-11-27 17:53] VITALS: BP 128/69; PULSE 72
[2023-11-27] MEDS: oxyCODONE 5 MG Tablet PO (20:14)
[2023-11-27] MEDS: Mirtazapine 30 MG Tablet PO (20:14)
[2023-11-27] MEDS: APIXABAN 2.5 MG TABLET (WCH) PO (20:15)
[2023-11-27] MEDS: Atorvastatin Calcium 40 MG Tablet PO (20:15)
[2023-11-27] MEDS: Potassium Chloride Oral Tablet 20 MEQ PO (20:15)
[2023-11-27] MEDS: Tamsulosin HCl 0.4 MG Capsule PO (20:15)
[2023-11-27] MEDS: Acetaminophen 500 MG Tablet 1000 MG PO (20:15)
--- NOTE | 2023-11-27 20:43 | HP.PCM_ITS ---
HPI - General General Date of Admission: 11/27/23 Date of Service: 11/27/23 Chief Complaint: Here for rehabilitation. HPI Narrative AMANDA HERNANDEZ, is a 73 Male who presents with followin11/24/2023 Admit to [facility]. Transfer from [facility] with left hip fracture after fall. Working on car, stumbled, fell on left hip in driveway. Prepare for surgery. 11/24/2023 Dr. Dorman performed left hip hemiarthroplasty. 11/25/2023 Feeling okay. Left hip hemiarthroplasty complicated by broken drill bit, unable to remove. Confused, no alcohol withdrawal. 11/26/2023 Feels well. Last Alcohol 4 months ago. 11/27/2023 Admit to TCU with debility, here for rehailitation, strengthening, prior to discharge home with . [facility] Medical History (Updated 11/27/23 @ 20:[address] Good Lizama MD) Adult failure to thrive Alcoholism Anxiety and depression Aphonia Atherosclerotic heart disease of craig coronary artery without angina pectoris Bifascicular block BPH (benign prostatic hyperplasia) Bradycardia Cardiac arrest with ventricular fibrillation Congestive heart failure (CHF) CVA (cerebral vascular accident) Diverticulosis Dysphagia Dyspnea on exertion Essential hypertension Fatigue Former smoker GERD (gastroesophageal reflux disease) History of CVA (cerebrovascular accident) History of tracheal stenosis Hyperlipidemia Hypertension Hypothyroidism ICD (implantable cardioverter-defibrillator) in place Ischemic cardiomyopathy Low back pain Myocardial infarct Non-rheumatic mitral regurgitation BETTY on CPAP Osteoporosis Pancreatic mass 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 Right bundle branch block SBO (small bowel obstruction) Syncope Trigeminal neuralgia Weakness Home Medications omeprazole 20 mg tablet,delayed release 20 mg PO DAILY reflux 09/26/18 [History Last Taken 06/22/23] potassium chloride 10 mEq tablet,extended release 20 meq PO BID supplement 11/18/19 [History Last Taken 06/22/23] aspirin 81 mg tablet,delayed release 81 mg PO QDAY heart health 02/01/22 [History Last Taken 11/27/23] duloxetine 60 mg capsule,delayed release 60 mg PO DAILY mental health 03/21/23 [History Last Taken 06/22/23] furosemide 40 mg tablet 20 mg PO .COMPLEX diuretic 03/21/23 [History Last Taken 11/26/23] mirabegron 50 mg tablet,extended release 24 hr (Myrbetriq) 50 mg PO DAILY BLADDER 05/19/23 [History Last Taken 06/22/23] atorvastatin 40 mg tablet 40 mg PO QHS cholesterol #0 tabs 07/06/23 [Rx Last Taken 11/26/23] levothyroxine 50 mcg tablet 50 mcg PO SuSa@0600 thyroid #0 tabs 07/06/23 [Rx Last Taken Unknown] metolazone 2.5 mg tablet 2.5 mg PO DAILY PRN FLUID RETENTION #0 tabs 07/06/23 [Rx Last Taken Unknown] mirtazapine 30 mg tablet 30 mg PO QHS sleep #0 tabs 07/06/23 [Rx Last Taken Unknown] nitroglycerin 0.4 mg sublingual tablet 0.4 mg sublingual Q5M PRN Cardiac/Chest Pain #0 tabs 07/06/23 [Rx Last Taken Unknown] finasteride 5 mg tablet 5 mg PO DAILY BPH 30 days #30 tabs 07/28/23 [Rx Last Taken Unknown] losartan 50 mg tablet 50 mg PO DAILY bp 30 days #30 tabs 07/28/23 [Rx Last Taken Unknown] carvedilol 3.125 mg tablet 3.125 mg PO BIDCM BP #180 tabs 08/07/23 [Rx Last Taken Unknown] ergocalciferol (vitamin D2) 1,250 mcg (50,000 unit) capsule 1,250 mcg PO QWEEK vits 09/26/23 [History Last Taken Unknown] acetaminophen 325 mg capsule (Tylenol) 650 mg PO Q6H 11/24/23 [History Last Taken Unknown] amiodarone 200 mg tablet 100 mg PO DAILY heart rate 11/24/23 [History Last Taken 11/27/23] oxybutynin chloride 10 mg tablet,extended release 24 hr 10 mg PO DAILY bladder 11/24/23 [History Last Taken Unknown] tamsulosin 0.4 mg capsule 0.4 mg PO QHS bph 11/24/23 [History Last Taken Unknown] tramadol 50 mg tablet 50 mg PO DAILY PRN PRN Pain Score 1-10 11/24/23 [History Last Taken Unknown] acetaminophen 500 mg tablet 1,000 mg (2 x 500 mg) PO Q8 pain #0 tabs 11/27/23 [Rx Last Taken Unknown] apixaban 2.5 mg tablet (Eliquis) 2.5 mg PO BID blood thinner 1 month #60 tabs 11/27/23 [Rx Last Taken Unknown] calcium carbonate 200 mg calcium (500 mg) chewable tablet 500 mg (2.5 x 200 mg calcium (500 mg)) PO TIDCM supplement #0 tabs 11/27/23 [Rx Last Taken Unknown] folic acid 1 mg tablet 1 mg PO DAILY@0800 supplement #0 tabs 11/27/23 [Rx Last Taken Unknown] levothyroxine 25 mcg tablet 25 mcg PO UD thyroid 30 days #0 tabs 11/27/23 [Rx Last Taken Unknown] linaclotide 145 mcg capsule (Linzess) 145 mcg PO DAILY PRN bowel 30 days #0 caps 11/27/23 [Rx Last Taken Unknown] multivitamin-iron 9 mg-folic acid 400 mcg-calcium and minerals tablet (Therapeutic-M) 1 tab PO BREAKFAST supplement #0 tabs 11/27/23 [Rx Last Taken Unknown] oxycodone 5 mg tablet 5 mg PO Q4H PRN PRN Pain Score 6-10 #0 tabs 11/27/23 [Rx Last Taken 11/27/23] sennosides 8.6 mg-docusate sodium 50 mg tablet (Stool Softener-Stimulant Laxative) 2 tab PO BID PRN bowels #0 tabs 11/27/23 [Rx Last Taken Unknown] thiamine HCl (vitamin B1) 100 mg tablet (Vitamin B-1) 100 mg PO DAILYCM supplement #0 tabs 11/27/23 [Rx Last Taken Unknown] Allergy/AdvReac Type Severity Reaction Status Date / Time lisinopril AdvReac cough Verified 10/20/23 12:25 Family History Mother Heart disease Cancer breast CAD (coronary artery disease) Breast cancer Father Colon cancer Sister Breast cancer Rheumatoid arthritis Surgical History (Updated 11/27/23 @ 20:[address] 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 Admits to 8-9 beers a day at the present time. substance use type: does not use caffeine: No ROS Constitutional Constitutional: Denies chills, fever(s) or weight gain ENT HEENT: Denies headache(s), nasal congestion or nasal discharge Cardiovascular Cardiovascular: Denies chest pain or palpitations Respiratory/Chest Respiratory/Chest: Denies cough, excessive phlegm production or shortness of breath with exertion Gastrointestinal Gastrointestinal: Denies abdominal pain, nausea or vomiting Genitourinary Genitourinary: Denies dysuria Musculoskeletal Musculoskeletal: Denies joint pain or joint swelling Integumentary Integumentary: Denies rash or wounds Neurologic Neurologic: Denies focal weakness, numbness or tingling Psychiatric Psychiatric: Denies anxiety, auditory hallucinations, depression, homicidal ideation or suicidal ideation Vital Signs Vital Signs Vital Signs: 11/27/23 15:05 11/27/23 16:00 11/27/23 17:53 Temperature 97.2 F L Temperature Source Temporal Pulse Rate 88 72 Pulse Rhythm Regular Pulse Strength Normal (2+) Respiratory Rate 19 H Respiratory Effort Normal Non-Labored Respiratory Depth Normal Respiratory Pattern Normal Blood Pressure 112/59 L 128/69 H Blood Pressure Mean 76 88 Blood Pressure Source Monitor Blood Pressure Position Sitting Blood Pressure Location Right Arm Pulse Ox 98 Oxygen Delivery Method Room Air Room Air Weight Weight: 94.12 kg Body Mass Index (BMI) 30.6 Physical Exam Const alert General Appearance: cooperative HEENT normocephalic Eyes PERRL and EOMs intact bilaterally Neck supple, no JVD and no carotid bruits Resp normal respiratory effort, normal air movement and clear to auscultation bilaterally Cardio regular rate and regular rhythm GI normal to inspection, nondistended, normoactive bowel sounds, non-tender and non-distended Extremity normal capillary refill General Extremity: Negative for edema Skin no rashes or lesions noted General Skin Exam: no breakdown Psych affect normal Appearance: appropriate Assessment & Plan Assessment/Plan (1) Debility: (2) Closed left hip fracture: QUALIFIERS: Encounter type: initial encounter Qualified Code(s): S72.002A - Fracture of unspecified part of neck of left femur, initial encounter for closed fracture (3) Atrial fibrillation: QUALIFIERS: Atrial fibrillation type: paroxysmal Qualified Code(s): I48.0 - Paroxysmal atrial fibrillation (4) Coronary artery disease: (5) Depression: (6) Hypothyroidism: QUALIFIERS: Hypothyroidism type: acquired Qualified Code(s): E03.9 - Hypothyroidism, unspecified (7) Overactive bladder: (8) Appetite loss: (9) GERD (gastroesophageal reflux disease): (10) Hypokalemia: (11) BPH (benign prostatic hyperplasia): (12) Insomnia: PLAN: Plan 73 year old male with below past medical history hospitalized for left hip fracture, underwent left hip hemiarthroplasty 11/24/[address] Dorman, complicated by broken drill bit, admitted to TCU with debility, here for rehabilitation, strengthening, prior to discharge home with . * Debility - PT/OT. * Pain - Tylenol 1000mg q8, Oxycodone 5mg q4 prn. * Bowel - senna/colace 2 tablets bid prn. * Adult immunization - Administer pneumonia vaccine, covid vaccine, flu vaccine as appropriate. * DVT prophylaxis - on Eliquis. * Atrial fibrillation - Coreg 3.125mg bidcm, Amiodarone 100mg daily, Eliquis 2.5mg bid. * Hyperlipidemia - Atorvastatin 40mg qhs. * Calcium deficiency - TUMS 500mg tidcm. * Depression - Duloxetine 60mg daily, stable chronic roasterman use, GDR not recommended. * Vitamin D deficiency - Vitamin D 1.25mg qweek. * BPH - Finasteride 5mg daily, Tamsulosin 0.4mg daily. * Alcohol abuse - Thiamine 100mg daily, Folic acid 1mg daily. * HFrEF - Coreg 3.125mg bidcm, Losartan 50mg daily, Furosemide 20mg bid, Metolazone 2.5mg daily prn. * Hypothyroidism - Levothyroxine 25mcg 5 days/week, 50mcg 2 days/week. * Appetite loss - Mirtazapine 30mg qhs, stable chronic roasterman use, GDR not recommended. * Nutrition - MVI 1 tablet daily. * Coronary artery disease - Coreg 3.125mg bidcm, Losartan 50mg daily, NTG 0.4mg sl q5m prn. * GERD - Pantoprazole 20mg daily. * Hypokalemia - KCL 20meq bid. * Overactive bladder - Tolterodine 2mg daily, Gemtasa 75mg daily.
[2023-11-28] MEDS: Acetaminophen 500 MG Tablet 1000 MG PO ×3 (06:01→20:40)
[2023-11-28] MEDS: Levothyroxine 25 MCG TABLET PO (06:01)
[2023-11-28] MEDS: oxyCODONE 5 MG Tablet PO ×3 (06:01→20:39)
[2023-11-28 06:12] LABS: Absolute Lymphocyte Count 1.27 X10^3/uL (0.83-4.51); Basophil# 0.04 X10^3/uL; Basophil% 0.5 % (0-1); Eosinophil# 0.27 X10^3/uL; Eosinophils% 3.1 % (0-5); Hemoglobin 10.3 g/dL (13.0-16.5); Lymphocyte # 1.27 X10^3/ul (0.83-4.51); Lymphocyte % 14.7 % (19-41); Mean Corp Hgb Conc 33.2 g/dL (32-36); Mean Corpuscular Hgb 29.9 pg (27.0-32.0); Mean Corpuscular Volume 90.1 fL (80-94); Mean Platelet Vol. 9.4 fl (6.2-12.0); Monocyte# 0.95 X10^3/uL; NRBC Flagged by Analyzer 0 % (0-5); Neutrophil # 6.03 X10^3/uL (2.7-7.7); Neutrophil % 69.5 % (47-70); Platelet Count 247 K/mm3 (150-450); RBC Distribution Width CV 16.2 % (11.6-14.6); RBC Distribution Width SD 53.2 fl (35.1-43.9); Red Blood Count 3.44 M/mm3 (4.6-6.2); White Blood Count 8.7 K/mm3 (4.4-11.0)
[2023-11-28 06:46] LABS: Anion Gap 5 (5-15); BUN 23 mg/dL (7-18); BUN/Creat Ratio 24.2 RATIO (10-20); Calcium,Total 8.8 mg/dL (8.5-10.1); Chloride 104 mmol/L (98-107); Creatinine, Serum 0.95 mg/dL (0.70-1.30); EST Glomerular Filtration Rate 83 mL/min (>60); Est Glom Filt Rate - Afr Amer 100 mL/min (>60); Estimated Creatinine Clearance 80.77 ml/min; Glucose 94 mg/dL (74-106); Potassium 3.7 mmol/L (3.5-5.1); Sodium Level 139 mmol/L (136-145)
[2023-11-28] MEDS: Multivitamins,Ther W-Minerals Tablet 1 TABLET PO (08:26)
[2023-11-28] MEDS: Carvedilol 3.125 MG TABLET PO ×2 (08:26→17:11)
[2023-11-28] MEDS: Amiodarone 200 MG Tablet 100 MG PO (08:26)
[2023-11-28] MEDS: Calcium Carbonate 500 MG Tablet PO ×3 (08:26→17:11)
[2023-11-28] MEDS: Folic Acid 1 MG Tablet PO (08:26)
[2023-11-28] MEDS: Thiamine Hydrochloride 100 MG Tablet PO (08:26)
[2023-11-28] MEDS: Potassium Chloride Oral Tablet 20 MEQ PO ×2 (08:27→20:41)
[2023-11-28] MEDS: Furosemide 40 MG Tablet 20 MG PO (08:27)
[2023-11-28] MEDS: APIXABAN 2.5 MG TABLET (WCH) PO ×2 (08:28→20:40)
[2023-11-28] MEDS: Pantoprazole Sodium 20 MG Tablet PO (08:28)
[2023-11-28] MEDS: Finasteride 5 MG Tablet PO (08:28)
[2023-11-28] MEDS: Tolterodine Tartrate 2 MG CAP.SA PO (08:28)
[2023-11-28] MEDS: DULoxetine Hcl 60 MG Capsule PO (08:28)
[2023-11-28] MEDS: Losartan Potassium 50 MG Tablet PO (08:28)
[2023-11-28] MEDS: Vibegron 75 MG TABLET PO (08:28)
[2023-11-28] MEDS: Tuberculin,Purif.prot.deriv. 50 TU/ML Vial 0.1 ML ID (10:17)
--- NOTE | 2023-11-28 15:52 | CHAPLAIN ---
Type of Pastoral Visit ___ Initial Visit _x__ Follow-up Visit ___ On-call Visit ___ General Patient Visit ___ Spiritual Assessment ___ Family Conference ___ Bereavement ___ Rapid Response ___ Code Blue ___ Other (describe below) Pastoral Care Referral From _x__ Patient ___ Family ___ Nurse ___ Physician ___ Property Disposal Manager ___ Gaming Cage Worker ___ Other (describe below) Sacrament/Intervention _x__ Active listening ___ Anointing ___ Orthodox ___ Bereavement ___ Communion ___ Bindu exploration ___ ___ Life review _x__ Prayer ___ Reconciliation ___ Sacrament of Sick _x__ Supportive presence ___ Wedding ___ Other (describe below) Pastoral Comments patient is able to communicate but with some hesitation and effort; time given to wait patiently for pt to communicate; pt states that he has good support from his ; pt states that he has no other worries or concerns; casual visit and offer of future support if desired
[2023-11-28 16:00] VITALS: BP 122/61; PULSE 59; RESP 16; TEMP 36.8; O2SAT 91
[2023-11-28] MEDS: Furosemide 20 MG Tablet PO (17:11)
[2023-11-28 19:54] VITALS: O2SAT 96
[2023-11-28] MEDS: Atorvastatin Calcium 40 MG Tablet PO (20:41)
[2023-11-28] MEDS: Tamsulosin HCl 0.4 MG Capsule PO (20:41)
[2023-11-28] MEDS: Mirtazapine 30 MG Tablet PO (20:41)
[2023-11-29] MEDS: Levothyroxine 25 MCG TABLET PO (04:53)
[2023-11-29] MEDS: Acetaminophen 500 MG Tablet 1000 MG PO ×3 (04:53→21:43)
[2023-11-29] MEDS: Senna/Docusate Sodium 1 Tablet 2 TABLET PO ×2 (05:01→21:51)
[2023-11-29 05:50] LABS: Hematocrit 32.1 % (40-54); Hemoglobin 10.4 g/dL (13.0-16.5)
[2023-11-29] MEDS: Pantoprazole Sodium 20 MG Tablet PO (08:34)
[2023-11-29] MEDS: Ergocalciferol 1.25 MG (50, 000 UNIT) Capsule PO (08:34)
[2023-11-29] MEDS: oxyCODONE 5 MG Tablet PO ×3 (08:34→21:42)
[2023-11-29] MEDS: Finasteride 5 MG Tablet PO (08:35)
[2023-11-29] MEDS: Furosemide 40 MG Tablet 20 MG PO (08:35)
[2023-11-29] MEDS: APIXABAN 2.5 MG TABLET (WCH) PO ×2 (08:36→21:43)
[2023-11-29] MEDS: Multivitamins,Ther W-Minerals Tablet 1 TABLET PO (08:36)
[2023-11-29] MEDS: Tolterodine Tartrate 2 MG CAP.SA PO (08:36)
[2023-11-29] MEDS: Losartan Potassium 50 MG Tablet PO (08:36)
[2023-11-29] MEDS: Vibegron 75 MG TABLET PO (08:36)
[2023-11-29] MEDS: Amiodarone 200 MG Tablet 100 MG PO (08:36)
[2023-11-29] MEDS: DULoxetine Hcl 60 MG Capsule PO (08:36)
[2023-11-29] MEDS: Carvedilol 3.125 MG TABLET PO ×2 (08:37→17:37)
[2023-11-29] MEDS: Folic Acid 1 MG Tablet PO (08:37)
[2023-11-29] MEDS: Potassium Chloride Oral Tablet 20 MEQ PO ×2 (08:37→17:37)
[2023-11-29] MEDS: Calcium Carbonate 500 MG Tablet PO ×3 (08:37→17:35)
[2023-11-29] MEDS: Thiamine Hydrochloride 100 MG Tablet PO (08:37)
--- NOTE | 2023-11-29 08:44 | NURSING ---
Nylon Winder Note; Activity Asset: Loco Kinsey prefer to be called Darrell. Darrell has returned to the TCU for continued therapy. He remains independent in his choice of daily activities and family continues to visit daily and active in his care. He will watch tv, reads, uses his smartphone and welcomes visit from the manager lan or therapy dog when available. Staff will continue to remind him of daily activities and respect his right to say no.
--- NOTE | 2023-11-29 09:15 | RAD_ITS ---
HISTORY: Cough. TECHNIQUE: XR Chest 2 Views. COMPARISON: 06/23/2023. FINDINGS: CARDIOMEDIASTINAL BORDERS: Cardiac silhouette within normal limits in size with pacemaker defibrillator in place. Mediastinal contour unremarkable with midline sternotomy again noted. LUNGS: Radiographically clear. PLEURA: No pleural effusion or pneumothorax seen. OSSEOUS STRUCTURES: Degenerative change. Mild anterior wedging in the lower thoracic spine. Vertebroplasty of chronic thoracolumbar compression fractures. Electrode overlying the upper abdomen. RAD/Chest PA and Lateral IMPRESSION: No acute cardiopulmonary process identified. Electronically Signed: Radha Meyers MD at 9:33 EST ,
[2023-11-29 14:04] VITALS: BP 167/80; PULSE 69; RESP 17; TEMP 36.6; O2SAT 98
[2023-11-29 15:00] VITALS: BMI 30.6
--- NOTE | 2023-11-29 16:06 | CASEMGMT ---
Social Work Met with patient to complete initial assessment. Pt known to this worker from multiple previous stays. Verified contacts. Pt confirmed code status as full code. Educated to Medicare benefit and copay coverage. Pt's goal is to return home with assist of . SW will continue to follow for DC planning. GEOFF CorriganW
[2023-11-29] MEDS: Furosemide 20 MG Tablet PO (17:37)
[2023-11-29] MEDS: Mirtazapine 30 MG Tablet PO (21:44)
[2023-11-29] MEDS: Atorvastatin Calcium 40 MG Tablet PO (21:44)
[2023-11-29] MEDS: Tamsulosin HCl 0.4 MG Capsule PO (21:44)
[2023-11-29 22:17] VITALS: O2SAT 97
[2023-11-30] MEDS: oxyCODONE 5 MG Tablet PO ×3 (05:31→19:51)
[2023-11-30] MEDS: Acetaminophen 500 MG Tablet 1000 MG PO ×3 (05:32→19:48)
[2023-11-30] MEDS: Levothyroxine 25 MCG TABLET PO (05:32)
[2023-11-30 05:54] VITALS: O2SAT 96
[2023-11-30] MEDS: Calcium Carbonate 500 MG Tablet PO ×2 (08:02→17:22)
[2023-11-30] MEDS: Potassium Chloride Oral Tablet 20 MEQ PO ×2 (08:02→17:22)
[2023-11-30] MEDS: Folic Acid 1 MG Tablet PO (08:02)
[2023-11-30] MEDS: Thiamine Hydrochloride 100 MG Tablet PO (08:02)
[2023-11-30] MEDS: Multivitamins,Ther W-Minerals Tablet 1 TABLET PO (08:02)
[2023-11-30 10:00] VITALS: BP 138/77; PULSE 60; RESP 16; TEMP 36.6; O2SAT 94
[2023-11-30] MEDS: Vibegron 75 MG TABLET PO (10:26)
[2023-11-30] MEDS: Pantoprazole Sodium 20 MG Tablet PO (10:26)
[2023-11-30] MEDS: DULoxetine Hcl 60 MG Capsule PO (10:26)
[2023-11-30] MEDS: Tolterodine Tartrate 2 MG CAP.SA PO (10:26)
[2023-11-30] MEDS: Losartan Potassium 50 MG Tablet PO (10:26)
[2023-11-30] MEDS: Furosemide 40 MG Tablet 20 MG PO (10:26)
[2023-11-30] MEDS: APIXABAN 2.5 MG TABLET (WCH) PO ×2 (10:27→19:47)
[2023-11-30] MEDS: Finasteride 5 MG Tablet PO (10:27)
[2023-11-30] MEDS: Amiodarone 200 MG Tablet 100 MG PO (10:27)
[2023-11-30] MEDS: Carvedilol 3.125 MG TABLET PO (10:27)
--- NOTE | 2023-11-30 17:18 | PCM.PN.DRR ---
Documented by User: Rodrigo Vance 11/30/23 17:47 TCU RX Drug Regimen Review Subjective/Objective Subjective/Objective: Subjective: TCU admission note. 73 year old male with below past medical history hospitalized for left hip fracture, underwent left hip hemiarthroplasty 11/24/[address] Dorman, complicated by broken drill bit, admitted to TCU with debility, here for rehabilitation, strengthening, prior to discharge home with . Objective: Allergies lisinopril Adverse Reaction (Verified 10/20/23 12:25) cough Current Medications Generic Name Dose Route Start Last Admin Trade Name Freq PRN Reason Stop Dose Admin Acetaminophen 1,000 mg 11/27/23 22:00 11/30/23 14:55 Acetaminophen 500 Mg Tablet PO 1,000 mg Q8 HUGH Administration Amiodarone HCl 100 mg 11/28/23 10:00 11/30/23 10:27 Amiodarone 200 Mg Tablet PO 100 mg DAILY HUGH Administration Apixaban 2.5 mg 11/27/23 22:00 11/30/23 10:27 Apixaban 2.5 Mg Tablet ([facility]) PO 2.5 mg BID HUGH Administration Atorvastatin Calcium 40 mg 11/27/23 22:00 11/29/23 21:44 Atorvastatin Calcium 40 Mg Tablet PO 40 mg QHS HUGH Administration Calcium Carbonate 500 mg 11/27/23 17:45 11/30/23 12:27 Calcium Carbonate 500 Mg Tablet PO Not Given TIDCM [facility] Carvedilol 3.125 mg 11/27/23 17:00 11/30/23 10:27 Carvedilol 3.125 Mg Tablet PO 3.125 mg BIDCM [facility] Administration Protocol Duloxetine HCl 60 mg 11/28/23 10:00 11/30/23 10:26 Duloxetine Hcl 60 Mg Capsule PO 60 mg DAILY HUGH Administration Ergocalciferol 1.25 mg 11/29/23 10:00 11/29/23 08:34 Ergocalciferol 1.25 Mg (50, 000 Unit) Capsule PO 1.25 mg QWEEK [facility]GH Administration Finasteride 5 mg 11/28/23 10:00 11/30/23 10:27 Finasteride 5 Mg Tablet PO 5 mg DAILY HUGH Administration Folic Acid 1 mg 11/28/23 08:00 11/30/23 08:02 Folic Acid 1 Mg Tablet PO 1 mg DAILY@0800 [facility] Administration Furosemide 20 mg 11/28/23 10:00 11/30/23 10:26 Furosemide 40 Mg Tablet PO 20 mg QAM [facility] Administration Protocol Furosemide 20 mg 11/27/23 18:00 11/29/23 17:37 Furosemide 20 Mg Tablet PO 20 mg 1800 [facility] Administration Guaifenesin 10 ml 11/29/23 07:39 Guaifenesin Dm 10 Ml Udc PO Q6H PRN PRN COUGH/CONGESTION Levothyroxine Sodium 50 mcg 12/02/23 06:00 Levothyroxine 50 Mcg Tablet PO SuSa@0600 [facility] Levothyroxine Sodium 25 mcg 11/28/23 06:00 11/30/23 05:32 Levothyroxine 25 Mcg Tablet PO 25 mcg MoTuWeThFr@0600 [facility] Administration Losartan Potassium 50 mg 11/28/23 10:00 11/30/23 10:26 Losartan Potassium 50 Mg Tablet PO 50 mg DAILY [facility] Administration Protocol Metolazone 2.5 mg 11/27/23 15:16 Metolazone 2.5 Mg Tablet PO DAILY PRN FLUID RETENTION Protocol Mirtazapine 30 mg 11/27/23 22:00 11/29/23 21:44 Mirtazapine 30 Mg Tablet PO 30 mg QHS [facility] Administration Multivitamins/Minerals 1 tablet 11/28/23 08:00 11/30/23 08:02 Multivitamins,Ther W-Minerals Tablet PO 1 tablet BREAKFAST [facility] Administration Nitroglycerin 0.4 mg 11/27/23 15:57 Nitroglycerin (Inpatient Use) 0.4 Mg Tab.Subl SL Q5M PRN CARDIAC/CHEST PAIN Oxycodone HCl 5 mg 11/27/23 15:21 11/30/23 12:51 Oxycodone 5 Mg Tablet PO 5 mg Q4H PRN PRN Administration Pain Score 6-10 Pantoprazole Sodium 20 mg 11/28/23 10:00 11/30/23 10:26 Pantoprazole Sodium 20 Mg Tablet PO 20 mg DAILY [facility] Administration Potassium Chloride 20 meq 11/29/23 08:00 11/30/23 08:02 Potassium Chloride Oral Tablet 20 Meq PO 20 meq BIDCM [facility] Administration Senna/Docusate Sodium 2 tablet 11/27/23 15:21 11/29/23 21:51 Senna/Docusate Sodium 1 Tablet PO 2 tablet BID PRN Administration bowels Sodium Chloride 10 - 40 ml 11/27/23 15:29 0.9% Saline Lock 10 Ml Syringe IV UD PRN SALINE FLUSH Tamsulosin HCl 0.4 mg 11/27/23 22:00 11/29/23 21:44 Tamsulosin Hcl 0.4 Mg Capsule PO 0.4 mg QHS HUGH Administration Thiamine HCl 100 mg 11/28/23 08:00 11/30/23 08:02 Thiamine Hydrochloride 100 Mg Tablet PO 100 mg DAILYCM [facility] Administration Tolterodine Tartrate 2 mg 11/28/23 10:00 11/30/23 10:26 Tolterodine Tartrate 2 Mg Cap.Sa PO 2 mg DAILY HUGH Administration Tuberculin PPD 0.1 ml 12/05/23 10:00 Tuberculin,Purif.Prot.Deriv. 50 Tu/Ml Vial ID 12/05/23 10:01 X1 ONE Problem List (Updated 11/27/23 @ 20:[address] Good Lizama MD) Appetite loss (Acute) Closed left hip fracture (Acute) Overactive bladder (Acute) Depression (Acute) Atrial fibrillation (Acute) Insomnia (Acute) Debility (Acute) Coronary artery disease (Chronic) Hypothyroidism (Chronic) GERD (gastroesophageal reflux disease) (Acute) BPH (benign prostatic hyperplasia) (Acute) Vital Signs Temp Pulse Resp BP Pulse Ox O2 Del Method O2 Flow Rate 97.8 F 60 16 138/77 H 94 Room Air 2 11/30/23 10:00 11/30/23 10:00 11/30/23 10:00 11/30/23 10:00 11/30/23 10:00 11/30/23 10:00 11/30/23 05:54 Oxygen Flow Rate (L/min) 2 Oxygen Delivery Method Room Air Weight: 94.03 kg Body Mass Index (BMI) 30.6 Sodium 139 mmol/L (136-145) 11/28/23 05:34 Potassium 3.7 mmol/L (3.5-5.1) 11/28/23 05:34 Chloride 104 mmol/L (98-107) 11/28/23 05:34 Carbon Dioxide 30.0 mmol/L (21.0-32.0) 11/28/23 05:34 Anion Gap 5 (5-15) 11/28/23 05:34 BUN 23 mg/dL (7-18) H 11/28/23 05:34 Creatinine 0.95 mg/dL (0.70-1.30) 11/28/23 05:34 Est GFR (MDRD) Af Amer 100 mL/min (>60) 11/28/23 05:34 Est GFR (MDRD) Non-Af 83 mL/min (>60) 11/28/23 05:34 BUN/Creatinine Ratio 24.2 RATIO (10-20) H 11/28/23 05:34 Glucose 94 mg/dL (74-106) 11/28/23 05:34 Assessment/Plan: 1. Pain: acetaminophen 1000 mg PO Q8H, oxycodone 5 mg PO Q4H PRN pain. The patient has used 9 doses of PRN oxycodone so far for pain scores of 6-10/10 resulting in pain scores of 0-6/10. Please continue to monitor pain levels, PRN medication usage, LFTs (AST/ALT = 18/24 U/L on 11/24/23), for constipation, drowsiness/dizziness, syncope/ataxia/falls, and for respiratory depression. 2. Bowel: senna/docusate 2 tablets PO BID PRN constipation. The patient has received 2 PRN doses of senna/docusate so far this admission and his last bowel movement was on 11/27/23. Please continue to monitor for PRN medication usage, bowel movements, diarrhea, and constipation. 3. Atrial fibrillation/HFrEF/CAD/Hyperlipidemia: amiodarone 100 mg PO daily, apixaban 2.5 mg PO BID, atorvastatin 40 mg PO daily, carvedilol 3.125 mg PO BID with meals, furosemide 20 mg PO BID, losartan 50 mg PO daily, metolazone 2.5 mg PO daily PRN fluid retention, nitroglycerin 0.4 mg PO Q5M PRN chest pain.. The patient has not required any PRN doses of metolazone or nitroglycerin so far this admission. Please continue to monitor LFTs (AST/ALT = 18/24 U/L on 11/24/23), thyroid function tests (TSH = 0.19 uIU/mL with T4 = 1.40 ng/dL on 11/25/23), heart rate (recent range = 57-88 beats/min), blood pressures (recent range = 110-167/55-80 mmHg), pulmonary function, hemoglobin levels (Hgb = 10.4 g/dL on 11/28/23), platelet count (Plt = 247 K/mm3 on 11/28/23), renal function (serum creatinine = 0.95 mg/dL with creatinine clearance ~ 81 mL/min on 11/28/23), for s/s of bleeding/excessive bruising, for myalgias, lipid levels (cholesterol = 133 mg/dL with LDL = 45 mg/dL on 07/15/19), for fatigue, for s/s of dehydration, sodium levels (NA = 139 mmol/L on 11/28/23), potassium levels (K = 3.7 mmol/L on 11/28/23), calcium levels (Ca = 8.8 mg/dL on 11/28/23), for lower extremity swelling, for chest pain, shortness of breath, other edema, and palpitations. Please consider ordering lipid levels if clinically indicated as the patient's last documented lipid levels are from 2018. 4. BPH: finasteride 5 mg PO daily, tamsulosin 0.4 mg PO daily. Please continue to monitor for urinary retention, urine flow, blood pressures (recent range = 110-167/55-80 mmHg), and for other s/s of orthostasis. 5. Hypothyroidism: levothyroxine 25 mcg PO daily Monday-Monday, levothyroxine 50 mcg PO Monday and Monday. Please continue to monitor for s/s of hypo/hyperthyroidism, and thyroid hormone levels (TSH = 0.19 uIU/mL with T4 = 1.40 ng/dL on 11/25/23). 6. GERD: Pantoprazole 20 mg PO daily. Please continue to monitor for s/s of GERD, for diarrhea that could indicate clostridium difficile infection, and for s/s of bone resorption such as fractures. 7. Overactive bladder: tolterodine 2 mg PO daily, vibegron 75 mg PO daily. Please continue to monitor for bladder spasms, dry mouth, headache, and dizziness. 8. Calcium deficiency: calcium carbonate 500 mg PO TID with meals. Please continue to monitor calcium levels (Ca = 8.8 mg/dL on 11/28/23). 9. Vitamin D deficiency: ergocalciferol 1.25 mg every week. Please continue to monitor for s/s of vitamin D deficiency, and vitamin D levels (vitamin D level = 69.8 ng/mL on 11/24/23). The patient's most recent vitamin D level is within normal limits and > 50 ng/mL. Please consider placing the patient on a maintenance dose of 5000 units cholecalciferol daily if clinically indicated. 10. Alcohol abuse: thiamine 100 mg PO daily, folic acid 1 mg daily. Please continue to monitor nutritional status. 11. Nutrition: multivitamin 1 tablet PO daily. Please continue to monitor nutritional status. 12. Potassium deficiency: potassium chloride 20 mEq PO BID with meals. Please continue to monitor potassium levels (K = 3.7 mmol/L on 11/28/23) and for GI distress with potassium chloride administration. 13. Cough/Congestion: guaifenesin/dextromethorphan 10 mL PO Q6H PRN cough/congestion. The patient has not required any PRN doses of guaifenesin/dextromethorphan so far this admission. Please continue to monitor for s/s of cough/congestion. Assessment/Plan for indications treated with psychotropic medications: 1. Depression: duloxetine 60 mg PO daily. Please see provider note regarding stable chronic long-term use GDR not recommended. Please continue to monitor for s/s of depression, for SI, sodium levels (Na = 139 mmol/L on 11/28/23), for s/s of serotonin syndrome, LFTs (AST/ALT = 18/24 U/L on 11/24/23), and nausea/vomiting. 2. Appetite loss: mirtazapine 30 mg PO QHS. Please continue to monitor appetite, for s/s of orthostasis, for sedation, for s/s of serotonin syndrome, and for SI. Medical chart and medication regimen reviewed. The following medication irregularities or issues were identified: 1. Atrial fibrillation/HFrEF/CAD/Hyperlipidemia: Please consider ordering lipid levels if clinically indicated as the patient's last documented lipid levels are from 2019. 2. Vitamin D deficiency: ergocalciferol 1.25 mg every week. Please consider placing the patient on a maintenance dose of 5000 units cholecalciferol daily if clinically indicated. Date Date of Note:: 11/30/23 Documented by User: Dr. Good Lizama MD 11/30/23 20:29 TCU RX Drug Regimen Review Provider Comments Provider responsibility Provider Comments to Recommendations by Pharmacy: Agree
[2023-11-30] MEDS: Furosemide 20 MG Tablet PO (17:22)
[2023-11-30] MEDS: Atorvastatin Calcium 40 MG Tablet PO (19:47)
[2023-11-30] MEDS: Tamsulosin HCl 0.4 MG Capsule PO (19:48)
[2023-11-30] MEDS: Mirtazapine 30 MG Tablet PO (19:48)
[2023-12-01 06:12] LABS: Hematocrit 33.1 % (40-54); Hemoglobin 10.4 g/dL (13.0-16.5)
[2023-12-01 06:58] LABS: Cholesterol 104 mg/dL (200); High Density Lipoprotein 31 mg/dL; Triglycerides 139 mg/dL; Very Low Density Lipoprotein 28 mg/dL (5-40)
[2023-12-01] MEDS: oxyCODONE 5 MG Tablet PO ×2 (07:43→12:09)
[2023-12-01 10:00] VITALS: O2SAT 96
--- NOTE | 2023-12-01 10:27 | NURSING ---
I called [facility] and talked with Dr. Dorman. Per Dr. Dorman ok for the patient to shower today
--- NOTE | 2023-12-01 14:45 | NURSING ---
[facility] staff here to transport pt for EGD via bed, with pt.
[2023-12-01 15:24] VITALS: BP 144/80; PULSE 66; RESP 18; TEMP 36.1; O2SAT 97
--- NOTE | 2023-12-01 15:46 | CON.PCM.GI_ITS ---
HPI Consult Data Date of Consult: 12/01/23 HPI Narrative Reason for Consultation: Anemia HPI Narrative: AMANDA HERNANDEZ, is a 73 M with a past medical history hypothyroidism, diverticular disease, Pancreatic lesion and h/o adenomatous polyps ( on 3 to 4 year surviallence colonoscopy) with last colonoscopy 4 years ago. He had recent admission to acute rehab from 05/22/23 to 05/31/23 for failure to thrive after a fall resulting in a vertebral compression fx/Kyphoplasty. He also recently got over a COVID infection. On 06/19/23 he was sent from TCU to the ED were consistent with a R femoral neck fracture. He was taken to the OR on 06/21/23 for right hip hemiarthroplasty On 06/22/23 he was transferred to the acute inpt rehab unit at [facility] for 3 hours of therapy daily to restore function at or near his level prior to the initial fall resulting in a vertebral compression fx. Upon transfer he was noted to have a distended abdomen. KUB displayed Nonspecific bowel distention.. There is no demonstrated free abdominal air. The visualized liver, spleen and kidneys are grossly normal in size and morphology. An NG tube was placed for decompression and a CT scan of the abdomen and pelvis was ordered. Findings from the CT scan: No evidence for small bowel obstruction or pneumoperitoneum.. Diffusely distended colon to the level of the sigmoid of indeterminate etiology possibly representing ileus although focal obstructing lesion cannot be entirely excluded. Colonoscopy or Gastrografin enema would be helpful for further evaluation if clinically indicated. He underwent colonoscopy by myself after I was consulted due to abnormal CT scan. The colonoscopy was a very poor prep and did not reveal any signs of acute or chronic GI blood loss. He was admitted to TCU after spending a short time in the hospital for a left hip fracture. He underwent open reduction internal fixation and replacement of the left hip. His hemoglobin was 12 prior to the procedure and has been slowly drifting down to 10.1. He did have some dark stools and his stools were occult positive. [facility] Medical History (Updated 12/01/23 @ 15:[address] Fontenot Friend, DO) Adult failure to thrive Alcoholism Anxiety and depression Aphonia Atherosclerotic heart disease of [place] coronary artery without angina pectoris Bifascicular block BPH (benign prostatic hyperplasia) Bradycardia Cardiac arrest with ventricular fibrillation Congestive heart failure (CHF) CVA (cerebral vascular accident) Diverticulosis Dysphagia Dyspnea on exertion Essential hypertension Fatigue Former smoker GERD (gastroesophageal reflux disease) History of CVA (cerebrovascular accident) History of tracheal stenosis Hyperlipidemia Hypertension Hypothyroidism ICD (implantable cardioverter-defibrillator) in place Ischemic cardiomyopathy Low back pain Myocardial infarct Non-rheumatic mitral regurgitation BETTY on CPAP Osteoporosis Pancreatic mass 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 Right bundle branch block SBO (small bowel obstruction) Syncope Trigeminal neuralgia Weakness Home Medications omeprazole 20 mg tablet,delayed release 20 mg PO DAILY reflux 09/26/18 [History Last Taken 06/22/23] potassium chloride 10 mEq tablet,extended release 20 meq PO BID supplement 11/18/19 [History Last Taken 06/22/23] aspirin 81 mg tablet,delayed release 81 mg PO QDAY heart health 02/01/22 [History Last Taken 11/27/23] duloxetine 60 mg capsule,delayed release 60 mg PO DAILY mental health 03/21/23 [History Last Taken 06/22/23] furosemide 40 mg tablet 20 mg PO .COMPLEX diuretic 03/21/23 [History Last Taken 11/26/23] mirabegron 50 mg tablet,extended release 24 hr (Myrbetriq) 50 mg PO DAILY BLADDER 05/19/23 [History Last Taken 06/22/23] atorvastatin 40 mg tablet 40 mg PO QHS cholesterol #0 tabs 07/06/23 [Rx Last Taken 11/26/23] levothyroxine 50 mcg tablet 50 mcg PO SuSa@0600 thyroid #0 tabs 07/06/23 [Rx Last Taken Unknown] metolazone 2.5 mg tablet 2.5 mg PO DAILY PRN FLUID RETENTION #0 tabs 07/06/23 [Rx Last Taken Unknown] mirtazapine 30 mg tablet 30 mg PO QHS sleep #0 tabs 07/06/23 [Rx Last Taken Unknown] nitroglycerin 0.4 mg sublingual tablet 0.4 mg sublingual Q5M PRN Cardiac/Chest Pain #0 tabs 07/06/23 [Rx Last Taken Unknown] finasteride 5 mg tablet 5 mg PO DAILY BPH 30 days #30 tabs 07/28/23 [Rx Last Taken Unknown] losartan 50 mg tablet 50 mg PO DAILY bp 30 days #30 tabs 07/28/23 [Rx Last Taken Unknown] carvedilol 3.125 mg tablet 3.125 mg PO BIDCM BP #180 tabs 08/07/23 [Rx Last Taken Unknown] ergocalciferol (vitamin D2) 1,250 mcg (50,000 unit) capsule 1,250 mcg PO QWEEK vits 09/26/23 [History Last Taken Unknown] acetaminophen 325 mg capsule (Tylenol) 650 mg PO Q6H 11/24/23 [History Last Taken Unknown] amiodarone 200 mg tablet 100 mg PO DAILY heart rate 11/24/23 [History Last Taken 11/27/23] oxybutynin chloride 10 mg tablet,extended release 24 hr 10 mg PO DAILY bladder 11/24/23 [History Last Taken Unknown] tamsulosin 0.4 mg capsule 0.4 mg PO QHS bph 11/24/23 [History Last Taken Unknown] tramadol 50 mg tablet 50 mg PO DAILY PRN PRN Pain Score 1-10 11/24/23 [History Last Taken Unknown] acetaminophen 500 mg tablet 1,000 mg (2 x 500 mg) PO Q8 pain #0 tabs 11/27/23 [Rx Last Taken Unknown] apixaban 2.5 mg tablet (Eliquis) 2.5 mg PO BID blood thinner 1 month #60 tabs 11/27/23 [Rx Last Taken Unknown] calcium carbonate 200 mg calcium (500 mg) chewable tablet 500 mg (2.5 x 200 mg calcium (500 mg)) PO TIDCM supplement #0 tabs 11/27/23 [Rx Last Taken Unknown] folic acid 1 mg tablet 1 mg PO DAILY@0800 supplement #0 tabs 11/27/23 [Rx Last Taken Unknown] levothyroxine 25 mcg tablet 25 mcg PO UD thyroid 30 days #0 tabs 11/27/23 [Rx Last Taken Unknown] linaclotide 145 mcg capsule (Linzess) 145 mcg PO DAILY PRN bowel 30 days #0 caps 11/27/23 [Rx Last Taken Unknown] multivitamin-iron 9 mg-folic acid 400 mcg-calcium and minerals tablet (Therapeutic-M) 1 tab PO BREAKFAST supplement #0 tabs 11/27/23 [Rx Last Taken Unknown] oxycodone 5 mg tablet 5 mg PO Q4H PRN PRN Pain Score 6-10 #0 tabs 11/27/23 [Rx Last Taken 11/27/23] sennosides 8.6 mg-docusate sodium 50 mg tablet (Stool Softener-Stimulant Laxati ve) 2 tab PO BID PRN bowels #0 tabs 11/27/23 [Rx Last Taken Unknown] thiamine HCl (vitamin B1) 100 mg tablet (Vitamin B-1) 100 mg PO DAILYCM supplement #0 tabs 11/27/23 [Rx Last Taken Unknown] Allergy/AdvReac Type Severity Reaction Status Date / Time lisinopril AdvReac cough Verified 12/01/23 15:17 Family History Mother Heart disease Cancer breast CAD (coronary artery disease) Breast cancer Father Colon cancer Sister Breast cancer Rheumatoid arthritis Surgical History (Updated 11/27/23 @ 20:[address] 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 Admits to 8-9 beers a day at the present time. substance use type: does not use caffeine: No ROS Constitutional Constitutional: Denies chills, fever(s) or weight gain ENT HEENT: Denies headache(s), nasal congestion or nasal discharge Cardiovascular Cardiovascular: Denies chest pain or palpitations Respiratory/Chest Respiratory/Chest: Denies cough, excessive phlegm production or shortness of breath with exertion Gastrointestinal Gastrointestinal: Denies abdominal pain, nausea or vomiting Genitourinary Genitourinary: Denies dysuria Musculoskeletal Musculoskeletal: Denies joint pain or joint swelling Integumentary Integumentary: Denies rash or wounds Neurologic Neurologic: Denies focal weakness, numbness or tingling Psychiatric Psychiatric: Denies anxiety, auditory hallucinations, depression, homicidal ideation or suicidal ideation Physical Exam Const alert General Appearance: cooperative HEENT normocephalic Eyes PERRL and EOMs intact bilaterally Neck supple, no JVD and no carotid bruits Resp normal respiratory effort, normal air movement and clear to auscultation bilaterally Cardio regular rate and regular rhythm GI normal to inspection, nondistended, normoactive bowel sounds, non-tender and non-distended Extremity normal capillary refill General Extremity: Negative for edema Skin no rashes or lesions noted General Skin Exam: no breakdown Psych affect normal Appearance: appropriate Lab / Micro Data 12/01/23 05:42 11/28/23 05:34 Labs: Laboratory Results - last 24 hr 12/01/23 05:42: Hgb 10.4 L, Hct 33.1 L, Triglycerides 139, Cholesterol 104, LDL Cholesterol 45, VLDL Cholesterol 28, HDL Cholesterol 31 L Micro: Microbiology 11/30/23 11:20 Stool Stool Occult Blood (LOUIE) - Final Occult Blood Positive Assessment & Plan Assessment/Plan (1) GERD (gastroesophageal reflux disease): (2) BPH (benign prostatic hyperplasia): (3) Anemia: PLAN: Plan 73 year old male with below past medical history hospitalized for left hip fracture, underwent left hip hemiarthroplasty 11/24/[address] Dorman, complicated by broken drill bit, admitted to TCU with debility, here for rehabilitation, strengthening, prior to discharge home with . He was dis covered to have worsening anemia. Differential diagnosis does include peptic ulcer disease, gastritis, medication side effect due to Eliquis and aspirin. Recommend upper endoscopy to evaluate his upper GI tract. He was explained alternatives, risk, benefits including not withstanding bleeding, infection, sepsis, perforation, need for emergent urgent . He will have an ASA of 3.
[2023-12-01] MEDS: APIXABAN 2.5 MG TABLET (WCH) PO (18:06)
[2023-12-01] MEDS: Potassium Chloride Oral Tablet 20 MEQ PO (18:07)
[2023-12-01] MEDS: Furosemide 20 MG Tablet PO (18:07)
[2023-12-01] MEDS: Carvedilol 3.125 MG TABLET PO (18:07)
[2023-12-01] MEDS: Calcium Carbonate 500 MG Tablet PO (18:07)
[2023-12-01 18:09] VITALS: BP 134/75; PULSE 77; TEMP 36.9
[2023-12-01] MEDS: Acetaminophen 500 MG Tablet 1000 MG PO (22:40)
[2023-12-01] MEDS: Mirtazapine 30 MG Tablet PO (22:40)
[2023-12-01] MEDS: Atorvastatin Calcium 40 MG Tablet PO (22:40)
[2023-12-01] MEDS: Tamsulosin HCl 0.4 MG Capsule PO (22:40)
[2023-12-02] MEDS: Levothyroxine 50 MCG Tablet PO (05:48)
[2023-12-02] MEDS: Acetaminophen 500 MG Tablet 1000 MG PO ×3 (05:48→20:43)
[2023-12-02] MEDS: Calcium Carbonate 500 MG Tablet PO ×3 (07:50→17:10)
[2023-12-02] MEDS: Potassium Chloride Oral Tablet 20 MEQ PO ×2 (07:51→17:10)
[2023-12-02] MEDS: Multivitamins,Ther W-Minerals Tablet 1 TABLET PO (07:51)
[2023-12-02] MEDS: Thiamine Hydrochloride 100 MG Tablet PO (07:51)
[2023-12-02] MEDS: Amiodarone 200 MG Tablet 100 MG PO (07:51)
[2023-12-02] MEDS: Folic Acid 1 MG Tablet PO (07:51)
[2023-12-02] MEDS: Vibegron 75 MG TABLET PO (07:52)
[2023-12-02] MEDS: Losartan Potassium 50 MG Tablet PO (07:52)
[2023-12-02] MEDS: APIXABAN 2.5 MG TABLET (WCH) PO ×2 (07:52→20:43)
[2023-12-02] MEDS: DULoxetine Hcl 60 MG Capsule PO (07:52)
[2023-12-02] MEDS: Tolterodine Tartrate 2 MG CAP.SA PO (07:52)
[2023-12-02] MEDS: Finasteride 5 MG Tablet PO (07:54)
[2023-12-02] MEDS: Pantoprazole Sodium 20 MG Tablet PO (07:54)
[2023-12-02] MEDS: Furosemide 40 MG Tablet 20 MG PO (07:54)
[2023-12-02] MEDS: oxyCODONE 5 MG Tablet PO ×3 (07:54→20:42)
[2023-12-02] MEDS: Cholecalciferol (Vit D3) 125 MCG CAPSULE (5,000 UNITS) PO (07:54)
[2023-12-02 08:32] LABS: Hematocrit 35.2 % (40-54); Hemoglobin 11.4 g/dL (13.0-16.5)
[2023-12-02 10:00] VITALS: O2SAT 98
[2023-12-02] MEDS: Pantoprazole Sodium 40 MG Tablet PO ×2 (11:11→20:45)
[2023-12-02 15:47] VITALS: BP 113/55; PULSE 63; RESP 16; TEMP 36.1; O2SAT 97
[2023-12-02] MEDS: Furosemide 20 MG Tablet PO (17:10)
[2023-12-02] MEDS: Carvedilol 3.125 MG TABLET PO (17:10)
[2023-12-02] MEDS: Senna/Docusate Sodium 1 Tablet 2 TABLET PO (20:42)
[2023-12-02] MEDS: Tamsulosin HCl 0.4 MG Capsule PO (20:43)
[2023-12-02] MEDS: Atorvastatin Calcium 40 MG Tablet PO (20:45)
[2023-12-02] MEDS: Mirtazapine 30 MG Tablet PO (20:46)
[2023-12-03] MEDS: Acetaminophen 500 MG Tablet 1000 MG PO ×3 (05:21→22:50)
[2023-12-03] MEDS: Levothyroxine 50 MCG Tablet PO (05:21)
[2023-12-03] MEDS: Amiodarone 200 MG Tablet 100 MG PO (08:37)
[2023-12-03] MEDS: Finasteride 5 MG Tablet PO (08:37)
[2023-12-03] MEDS: Pantoprazole Sodium 40 MG Tablet PO ×2 (08:37→22:51)
[2023-12-03] MEDS: Cholecalciferol (Vit D3) 125 MCG CAPSULE (5,000 UNITS) PO (08:37)
[2023-12-03] MEDS: Losartan Potassium 50 MG Tablet PO (08:37)
[2023-12-03] MEDS: Carvedilol 3.125 MG TABLET PO ×2 (08:38→17:52)
[2023-12-03] MEDS: Vibegron 75 MG TABLET PO (08:38)
[2023-12-03] MEDS: Calcium Carbonate 500 MG Tablet PO ×3 (08:38→17:53)
[2023-12-03] MEDS: Potassium Chloride Oral Tablet 20 MEQ PO ×2 (08:38→17:52)
[2023-12-03] MEDS: APIXABAN 2.5 MG TABLET (WCH) PO ×2 (08:38→22:50)
[2023-12-03] MEDS: Folic Acid 1 MG Tablet PO (08:38)
[2023-12-03] MEDS: DULoxetine Hcl 60 MG Capsule PO (08:38)
[2023-12-03] MEDS: Furosemide 40 MG Tablet 20 MG PO (08:38)
[2023-12-03] MEDS: Multivitamins,Ther W-Minerals Tablet 1 TABLET PO (08:38)
[2023-12-03] MEDS: Thiamine Hydrochloride 100 MG Tablet PO (08:39)
[2023-12-03] MEDS: Tolterodine Tartrate 2 MG CAP.SA PO (08:40)
[2023-12-03 08:46] VITALS: BP 133/67; PULSE 58
[2023-12-03] MEDS: Senna/Docusate Sodium 1 Tablet 2 TABLET PO ×2 (15:33→22:49)
[2023-12-03 15:49] VITALS: BP 112/65; PULSE 64; RESP 16; TEMP 36.6; O2SAT 93
--- NOTE | 2023-12-03 17:03 | NURSING ---
Pt C/O of constipation Senna and Prune juice given and ineffective. Dr. Lizama updated N.O. for 300ml of Mag citrate prn for constipation.
[2023-12-03] MEDS: Magnesium Citrate 300 ML PO (17:52)
[2023-12-03] MEDS: Furosemide 20 MG Tablet PO (17:59)
[2023-12-03 18:09] VITALS: BP 134/65; PULSE 65
--- NOTE | 2023-12-03 18:13 | NURSING ---
Pt had Medium Hard BM pt c/o of still feeling constipated and requested Mag Citrate.
[2023-12-03] MEDS: oxyCODONE 5 MG Tablet PO ×2 (18:48→22:48)
[2023-12-03] MEDS: Mirtazapine 30 MG Tablet PO (22:50)
[2023-12-03] MEDS: Tamsulosin HCl 0.4 MG Capsule PO (22:51)
[2023-12-03] MEDS: Atorvastatin Calcium 40 MG Tablet PO (22:51)
[2023-12-03 23:22] VITALS: O2SAT 96
[2023-12-04] MEDS: Levothyroxine 25 MCG TABLET PO (05:47)
[2023-12-04] MEDS: Acetaminophen 500 MG Tablet 1000 MG PO ×3 (05:48→20:00)
[2023-12-04] MEDS: oxyCODONE 5 MG Tablet PO ×3 (05:53→19:59)
[2023-12-04 06:33] VITALS: O2SAT 94
[2023-12-04] MEDS: Calcium Carbonate 500 MG Tablet PO ×3 (09:08→17:27)
[2023-12-04] MEDS: Carvedilol 3.125 MG TABLET PO ×2 (09:08→17:26)
[2023-12-04] MEDS: Potassium Chloride Oral Tablet 20 MEQ PO ×2 (09:09→17:26)
[2023-12-04] MEDS: Multivitamins,Ther W-Minerals Tablet 1 TABLET PO (09:09)
[2023-12-04] MEDS: Folic Acid 1 MG Tablet PO (09:09)
[2023-12-04] MEDS: DULoxetine Hcl 60 MG Capsule PO (09:10)
[2023-12-04] MEDS: Losartan Potassium 50 MG Tablet PO (09:10)
[2023-12-04] MEDS: Amiodarone 200 MG Tablet 100 MG PO (09:10)
[2023-12-04] MEDS: Thiamine Hydrochloride 100 MG Tablet PO (09:10)
[2023-12-04] MEDS: Tolterodine Tartrate 2 MG CAP.SA PO (09:11)
[2023-12-04] MEDS: APIXABAN 2.5 MG TABLET (WCH) PO ×2 (09:11→20:00)
[2023-12-04] MEDS: Furosemide 40 MG Tablet 20 MG PO (09:12)
[2023-12-04] MEDS: Vibegron 75 MG TABLET PO (09:12)
[2023-12-04] MEDS: Finasteride 5 MG Tablet PO (09:12)
[2023-12-04] MEDS: Pantoprazole Sodium 40 MG Tablet PO ×2 (09:13→20:01)
[2023-12-04] MEDS: Cholecalciferol (Vit D3) 125 MCG CAPSULE (5,000 UNITS) PO (09:13)
--- NOTE | 2023-12-04 09:52 | NURSING ---
Addendum entered by Collette Lassiter 12/05/23 10:02: Fax that was sent didn't have xray orders on it. Called radiology, they didn't have order but said they might have received and sent to scheduling. Spoke with scheduling who says they don't have an order. Called [facility] office, talked with Ruby and received verbal order for hip xray to be done tomorrow. Addendum entered by Collette Lassiter 12/05/23 09:23: No xray orders received. Called office, they had sent orders to radiology. Took TCU fax number and they will send here as well. Addendum entered by Collette Lassiter 12/04/23 12:13: Updated . Addendum entered by Collette Lassiter 12/04/23 12:11: Called back from office. Dr. Dorman will see patient on TCU on . They will fax xray orders to be done Monday or . Original Note: Updated by staff that requesting to move ortho appt. Spoke with Dr. Dorman's staff, passed along 's request, that she's concerned about getting him to appt. Await return call to see if Dr. Dorman wants jacqueline removed/xrays done here on TCU.
--- NOTE | 2023-12-04 10:24 | NURSING ---
Bariatric Program Coordinator Note; MDS for 12/04/2023 Complete
--- NOTE | 2023-12-04 13:12 | NURSING ---
Offered Covid vaccine, VIS provided. Patient refused at this time.
[2023-12-04 14:53] VITALS: BP 109/62; PULSE 60; RESP 16; TEMP 36.5; O2SAT 95
[2023-12-04] MEDS: Furosemide 20 MG Tablet PO (17:29)
--- NOTE | 2023-12-04 19:58 | CASEMGMT ---
Social Work BIMS (09/08) and PHQ-2 () completed for MDS assessment. Mis Edge MSW [employer]
[2023-12-04] MEDS: Tamsulosin HCl 0.4 MG Capsule PO (20:01)
[2023-12-04] MEDS: Mirtazapine 30 MG Tablet PO (20:01)
[2023-12-04] MEDS: Atorvastatin Calcium 40 MG Tablet PO (20:01)
[2023-12-05] MEDS: oxyCODONE 5 MG Tablet PO ×4 (05:28→21:58)
[2023-12-05] MEDS: Levothyroxine 25 MCG TABLET PO (05:28)
[2023-12-05] MEDS: Acetaminophen 500 MG Tablet 1000 MG PO ×3 (05:29→21:58)
[2023-12-05 05:47] LABS: Absolute Lymphocyte Count 1.72 X10^3/uL (0.83-4.51); Absolute Neutrophil Count 6.4 X10^3/uL (2.0-7.7); Basophil# 0.06 X10^3/uL; Basophil% 0.6 % (0-1); Eosinophil# 0.28 X10^3/uL; Eosinophils% 2.9 % (0-5); Hemoglobin 9.9 g/dL (13.0-16.5); Lymphocyte # 1.72 X10^3/ul (0.83-4.51); Lymphocyte % 17.8 % (19-41); Mean Corp Hgb Conc 30.9 g/dL (32-36); Mean Corpuscular Hgb 29.1 pg (27.0-32.0); Mean Corpuscular Volume 94.1 fL (80-94); Monocyte% 8.3 % (0-10); NRBC Flagged by Analyzer 0 % (0-5); Neutrophil # 6.38 X10^3/uL (2.7-7.7); Neutrophil % 65.8 % (47-70); Platelet Count 395 K/mm3 (150-450); RBC Distribution Width CV 17.4 % (11.6-14.6); RBC Distribution Width SD 58.6 fl (35.1-43.9); White Blood Count 9.7 K/mm3 (4.4-11.0)
[2023-12-05 06:34] LABS: Anion Gap 3 (5-15); BUN 20 mg/dL (7-18); BUN/Creat Ratio 20.2 RATIO (10-20); Calcium,Total 8.5 mg/dL (8.5-10.1); Chloride 104 mmol/L (98-107); Creatinine, Serum 0.99 mg/dL (0.70-1.30); EST Glomerular Filtration Rate 79 mL/min (>60); Est Glom Filt Rate - Afr Amer 96 mL/min (>60); Estimated Creatinine Clearance 77.47 ml/min; Glucose 92 mg/dL (74-106); Potassium 4.3 mmol/L (3.5-5.1); Sodium Level 139 mmol/L (136-145)
[2023-12-05 07:45] VITALS: O2SAT 94
[2023-12-05] MEDS: Calcium Carbonate 500 MG Tablet PO ×3 (08:33→17:21)
[2023-12-05] MEDS: DULoxetine Hcl 60 MG Capsule PO (08:34)
[2023-12-05] MEDS: Losartan Potassium 50 MG Tablet PO (08:34)
[2023-12-05] MEDS: Amiodarone 200 MG Tablet 100 MG PO (08:34)
[2023-12-05] MEDS: Folic Acid 1 MG Tablet PO (08:34)
[2023-12-05] MEDS: Multivitamins,Ther W-Minerals Tablet 1 TABLET PO (08:34)
[2023-12-05] MEDS: Thiamine Hydrochloride 100 MG Tablet PO (08:34)
[2023-12-05] MEDS: Potassium Chloride Oral Tablet 20 MEQ PO ×2 (08:34→16:10)
[2023-12-05] MEDS: Carvedilol 3.125 MG TABLET PO ×2 (08:34→16:10)
[2023-12-05] MEDS: Iron Polysaccharide Complex 150 MG CAPSULE PO (08:35)
[2023-12-05] MEDS: Furosemide 40 MG Tablet 20 MG PO (08:35)
[2023-12-05] MEDS: Vibegron 75 MG TABLET PO (08:35)
[2023-12-05] MEDS: APIXABAN 2.5 MG TABLET (WCH) PO ×2 (08:35→21:58)
[2023-12-05] MEDS: Tolterodine Tartrate 2 MG CAP.SA PO (08:35)
[2023-12-05] MEDS: Pantoprazole Sodium 40 MG Tablet PO ×2 (08:36→21:58)
[2023-12-05] MEDS: Cholecalciferol (Vit D3) 125 MCG CAPSULE (5,000 UNITS) PO (08:36)
[2023-12-05] MEDS: Finasteride 5 MG Tablet PO (08:36)
[2023-12-05] MEDS: Ascorbic Acid 500 MG Tablet PO (09:42)
[2023-12-05 11:16] VITALS: BMI 31.0
[2023-12-05] MEDS: Tuberculin,Purif.prot.deriv. 50 TU/ML Vial 0.1 ML ID (15:06)
[2023-12-05] MEDS: Furosemide 20 MG Tablet PO (17:21)
[2023-12-05 21:25] VITALS: PULSE 58; RESP 16; O2SAT 93
[2023-12-05] MEDS: Tamsulosin HCl 0.4 MG Capsule PO (21:58)
[2023-12-05] MEDS: Mirtazapine 30 MG Tablet PO (21:58)
[2023-12-05] MEDS: Atorvastatin Calcium 40 MG Tablet PO (21:58)
[2023-12-06] MEDS: Levothyroxine 25 MCG TABLET PO (05:06)
[2023-12-06] MEDS: oxyCODONE 5 MG Tablet PO ×4 (05:06→21:18)
[2023-12-06] MEDS: Acetaminophen 500 MG Tablet 1000 MG PO ×3 (05:06→21:19)
[2023-12-06 05:12] VITALS: PULSE 54; RESP 16; O2SAT 96
[2023-12-06 07:03] LABS: Hematocrit 33.2 % (40-54); Hemoglobin 10.4 g/dL (13.0-16.5)
[2023-12-06 08:54] VITALS: O2SAT 93
[2023-12-06 09:18] VITALS: BP 127/64; PULSE 57; RESP 20; TEMP 36; O2SAT 92
--- NOTE | 2023-12-06 10:00 | RAD_ITS ---
STUDY: X-RAY - PELVIS AND LEFT HIP REASON FOR EXAM: Male, 73 years old. Follow-up of femoral fracture ORIF. TECHNIQUE: 3 views of the pelvis and hip. COMPARISON: 11/24/2023 FINDINGS: Normal bowel gas pattern. Clips projected over the left proximal lateral thigh, unchanged. Osteopenia with normal sacroiliac joints unchanged. Mild arthrosis of the symphysis pubis. Bilateral total hip arthroplasties unchanged in position or alignment. No complications. RAD/HIP, UNI W/ Pelvis 2-3 Views IMPRESSION: Stable osteopenia, bilateral total hip arthroplasties and no complicating features. Electronically Signed: Riki Rodriguez MD at 14:33 EDT ,
[2023-12-06] MEDS: Folic Acid 1 MG Tablet PO (11:06)
[2023-12-06] MEDS: Potassium Chloride Oral Tablet 20 MEQ PO ×2 (11:06→17:36)
[2023-12-06] MEDS: Calcium Carbonate 500 MG Tablet PO ×3 (11:06→17:37)
[2023-12-06] MEDS: Carvedilol 3.125 MG TABLET PO ×2 (11:06→17:36)
[2023-12-06] MEDS: Losartan Potassium 50 MG Tablet PO (11:07)
[2023-12-06] MEDS: Thiamine Hydrochloride 100 MG Tablet PO (11:07)
[2023-12-06] MEDS: Multivitamins,Ther W-Minerals Tablet 1 TABLET PO (11:07)
[2023-12-06] MEDS: Amiodarone 200 MG Tablet 100 MG PO (11:07)
[2023-12-06] MEDS: Iron Polysaccharide Complex 150 MG CAPSULE PO (11:08)
[2023-12-06] MEDS: APIXABAN 2.5 MG TABLET (WCH) PO ×2 (11:08→21:18)
[2023-12-06] MEDS: Tolterodine Tartrate 2 MG CAP.SA PO (11:08)
[2023-12-06] MEDS: DULoxetine Hcl 60 MG Capsule PO (11:08)
[2023-12-06] MEDS: Furosemide 40 MG Tablet 20 MG PO (11:08)
[2023-12-06] MEDS: Vibegron 75 MG TABLET PO (11:08)
[2023-12-06] MEDS: Pantoprazole Sodium 40 MG Tablet PO ×2 (11:09→21:18)
[2023-12-06] MEDS: Ascorbic Acid 500 MG Tablet PO (11:09)
[2023-12-06] MEDS: Cholecalciferol (Vit D3) 125 MCG CAPSULE (5,000 UNITS) PO (11:09)
[2023-12-06] MEDS: Finasteride 5 MG Tablet PO (11:09)
--- NOTE | 2023-12-06 13:21 | CASEMGMT ---
Social Work Collaboration with ASSISTANT TECHNICIAN on presenting social work information for care plan meeting. Information included explanation of Medicare benefit and copay coverage. Pt's goal is to return home with and will continue to assist. Pt will continue to work with therapy and notify this worker when ready for DC. This worker's business card was provided to pt/ if further questions arise. SW will continue to follow for DC planning. GEOFF Corrigan
[2023-12-06] MEDS: Furosemide 20 MG Tablet PO (17:38)
[2023-12-06] MEDS: Tamsulosin HCl 0.4 MG Capsule PO (21:18)
[2023-12-06] MEDS: Atorvastatin Calcium 40 MG Tablet PO (21:18)
[2023-12-06] MEDS: Mirtazapine 30 MG Tablet PO (21:18)
[2023-12-07] MEDS: Levothyroxine 25 MCG TABLET PO (06:10)
[2023-12-07] MEDS: Acetaminophen 500 MG Tablet 1000 MG PO ×3 (06:10→21:51)
[2023-12-07] MEDS: Magnesium Citrate 300 ML PO (06:16)
[2023-12-07 07:02] VITALS: PULSE 56; RESP 18; O2SAT 95
[2023-12-07 08:11] VITALS: O2SAT 95
[2023-12-07 10:00] VITALS: BP 138/63; PULSE 65; RESP 16; O2SAT 94
[2023-12-07] MEDS: Calcium Carbonate 500 MG Tablet PO ×3 (10:02→16:43)
[2023-12-07] MEDS: Amiodarone 200 MG Tablet 100 MG PO (10:03)
[2023-12-07] MEDS: Iron Polysaccharide Complex 150 MG CAPSULE PO (10:03)
[2023-12-07] MEDS: Losartan Potassium 50 MG Tablet PO (10:03)
[2023-12-07] MEDS: Folic Acid 1 MG Tablet PO (10:03)
[2023-12-07] MEDS: Ascorbic Acid 500 MG Tablet PO (10:04)
[2023-12-07] MEDS: Pantoprazole Sodium 40 MG Tablet PO ×2 (10:04→21:51)
[2023-12-07] MEDS: Cholecalciferol (Vit D3) 125 MCG CAPSULE (5,000 UNITS) PO (10:04)
[2023-12-07] MEDS: Multivitamins,Ther W-Minerals Tablet 1 TABLET PO (10:05)
[2023-12-07] MEDS: Carvedilol 3.125 MG TABLET PO ×2 (10:05→16:44)
[2023-12-07] MEDS: Vibegron 75 MG TABLET PO (10:05)
[2023-12-07] MEDS: Thiamine Hydrochloride 100 MG Tablet PO (10:05)
[2023-12-07] MEDS: Potassium Chloride Oral Tablet 20 MEQ PO ×2 (10:05→16:43)
[2023-12-07] MEDS: Tolterodine Tartrate 2 MG CAP.SA PO (10:05)
[2023-12-07] MEDS: Finasteride 5 MG Tablet PO (10:06)
[2023-12-07] MEDS: DULoxetine Hcl 60 MG Capsule PO (10:06)
[2023-12-07] MEDS: APIXABAN 2.5 MG TABLET (WCH) PO ×2 (10:06→21:51)
[2023-12-07] MEDS: Metolazone 2.5 MG Tablet PO (10:07)
[2023-12-07] MEDS: Furosemide 40 MG Tablet 20 MG PO (10:12)
[2023-12-07] MEDS: oxyCODONE 5 MG Tablet PO ×2 (10:18→21:51)
--- NOTE | 2023-12-07 12:36 | PN.ORTHO_ITS ---
Subjective Subjective Patient seen and examined. Reports pain is controlled. He states he is ambulating with assistance 150 feet with a front wheel walker. Denies any numbness or tingling. Denies any fevers, chills, nausea or vomiting, chest pain or shortness of breath. Patient is anxious to return home. Objective Data Objective Data Vital Signs: Vital Signs Temp Pulse Resp BP Pulse Ox O2 Del Method O2 Flow Rate 96.8 F L 65 16 138/63 H 94 Room Air 2 12/06/23 09:18 12/07/23 10:00 12/07/23 10:00 12/07/23 10:00 12/07/23 10:00 12/07/23 10:00 12/06/23 05:12 Oxygen Flow Rate (L/min) 2 Oxygen Delivery Method Room Air Weight: 210 lb Body Mass Index (BMI) 31.0 Intake & Output: Intake and Output for Last 24 Hours 12/05/23 12/06/23 12/07/23 23:59 23:59 23:59 Intake Total 790 / 790 580 / 580 240 / 240 Output Total 300 / 300 Balance 790 / 790 580 / 580 -60 / -60 Lab / Micro Data 12/06/23 05:28 12/05/23 05:28 Micro: Microbiology 11/30/23 11:20 Stool Stool Occult Blood (LOUIE) - Final Occult Blood Positive Radiography Diagnostic Testing: Radiology Impression Hip/Pelvis X-Ray 12/06/23 10:00 IMPRESSION: Stable osteopenia, bilateral total hip arthroplasties and no complicating features. Electronically Signed: Riki Rodriguez MD at 14:33 EDT , Physical Exam Narrative General - A&Ox3, NAD. VSS/AF Left lower extremity -well-approximated posterior lateral hip incision. No luis thema or drainage. [place] were approximate the skin well. SILT Sural, Saphenous, SPN, DPN, Tibial N. distributions. DP, PT 2+. BCR. DF, PF, EHL 5/5. No calf TTP. 2+ bipedal edema to the mid to proximal tibia. Assessment & Plan Assessment/Plan (1) Fall at home: QUALIFIERS: Encounter type: initial encounter Qualified Code(s): W19.XXXA - Unspecified fall, initial encounter; Y92.009 - Unspecified place in unspecified non-institutional (private) residence as the place of occurrence of the external cause PLAN: 2 weeks status post left hip hemiarthroplasty -Patient doing well. Continue mobilize with physical therapy. Okay to remove jacqueline. No signs or symptoms of infection. Patient appears to be retaining significant fluid bilaterally. I did order KIMBERLY hose. I will defer to primary care for possible diuresis. -Weightbearing as tolerated, posterior precautions x 6 weeks -X-rays reviewed from 12/06/2023. Well-fixed and well aligned left hip hemiarthroplasty. Broken drill bit appears stable embedded in bone on orthog onal films. -Plan to follow-up with me in the office in 1 month. We will obtain x-rays upon arrival. I suspect patient will need home PT/OT upon discharge from SNF. -Please not hesitate to call if any questions or concerns arise in the interim.
[2023-12-07 16:00] VITALS: TEMP 36.5
[2023-12-07] MEDS: Furosemide 20 MG Tablet PO (16:44)
[2023-12-07 16:47] VITALS: BP 157/70; PULSE 62; RESP 18; O2SAT 95
--- NOTE | 2023-12-07 16:50 | NURSING ---
Dr. Dorman in to assess patient this morning, gave okay to remove jacqueline today and apply KIMBERLY hose daily. 17 jacqueline removed from incision to left hip. No signs of infection noted. Pt tolerated well. Family present at bedside today and aware of staple removal.
[2023-12-07] MEDS: Mirtazapine 30 MG Tablet PO (21:51)
[2023-12-07] MEDS: Tamsulosin HCl 0.4 MG Capsule PO (21:51)
[2023-12-07] MEDS: Atorvastatin Calcium 40 MG Tablet PO (21:52)
[2023-12-08 05:35] LABS: Hematocrit 33.1 % (40-54); Hemoglobin 10.5 g/dL (13.0-16.5)
[2023-12-08] MEDS: Levothyroxine 25 MCG TABLET PO (05:43)
[2023-12-08] MEDS: Acetaminophen 500 MG Tablet 1000 MG PO ×3 (05:43→22:23)
[2023-12-08 07:10] VITALS: O2SAT 95
[2023-12-08] MEDS: Calcium Carbonate 500 MG Tablet PO ×3 (07:57→17:49)
[2023-12-08] MEDS: oxyCODONE 5 MG Tablet PO ×3 (07:57→22:22)
[2023-12-08] MEDS: Multivitamins,Ther W-Minerals Tablet 1 TABLET PO (07:58)
[2023-12-08] MEDS: Folic Acid 1 MG Tablet PO (07:58)
[2023-12-08] MEDS: Carvedilol 3.125 MG TABLET PO ×2 (07:58→17:48)
[2023-12-08] MEDS: Tolterodine Tartrate 2 MG CAP.SA PO (07:59)
[2023-12-08] MEDS: Amiodarone 200 MG Tablet 100 MG PO (07:59)
[2023-12-08] MEDS: DULoxetine Hcl 60 MG Capsule PO (07:59)
[2023-12-08] MEDS: Thiamine Hydrochloride 100 MG Tablet PO (07:59)
[2023-12-08] MEDS: Losartan Potassium 50 MG Tablet PO (07:59)
[2023-12-08] MEDS: APIXABAN 2.5 MG TABLET (WCH) PO ×2 (08:00→22:24)
[2023-12-08] MEDS: Iron Polysaccharide Complex 150 MG CAPSULE PO (08:00)
[2023-12-08] MEDS: Vibegron 75 MG TABLET PO (08:01)
[2023-12-08] MEDS: Ascorbic Acid 500 MG Tablet PO (08:01)
[2023-12-08] MEDS: Furosemide 40 MG Tablet 20 MG PO (08:01)
[2023-12-08] MEDS: Finasteride 5 MG Tablet PO (08:01)
[2023-12-08] MEDS: Pantoprazole Sodium 40 MG Tablet PO ×2 (08:01→22:23)
[2023-12-08] MEDS: Cholecalciferol (Vit D3) 125 MCG CAPSULE (5,000 UNITS) PO (08:02)
[2023-12-08] MEDS: Potassium Chloride Oral Tablet 20 MEQ PO ×2 (08:08→17:49)
--- NOTE | 2023-12-08 09:13 | MDS.RN ---
Information for the mds was obtained form review of the clinical record, interview of resident, staff, and direct observation of resident's care.
[2023-12-08 15:52] VITALS: BP 126/65; PULSE 60; RESP 16; TEMP 36.9; O2SAT 94
[2023-12-08] MEDS: Furosemide 20 MG Tablet PO (17:50)
[2023-12-08 20:42] VITALS: PULSE 57; RESP 16; O2SAT 97
[2023-12-08] MEDS: Atorvastatin Calcium 40 MG Tablet PO (22:23)
[2023-12-08] MEDS: Mirtazapine 30 MG Tablet PO (22:24)
[2023-12-08] MEDS: Tamsulosin HCl 0.4 MG Capsule PO (22:24)
[2023-12-09] MEDS: Levothyroxine 50 MCG Tablet PO (05:32)
[2023-12-09] MEDS: Acetaminophen 500 MG Tablet 1000 MG PO ×3 (05:33→21:07)
[2023-12-09] MEDS: oxyCODONE 5 MG Tablet PO ×3 (05:33→21:07)
[2023-12-09 07:40] VITALS: O2SAT 96
[2023-12-09 09:27] VITALS: BP 123/69; PULSE 60; RESP 16; TEMP 36.2; O2SAT 97
[2023-12-09] MEDS: Folic Acid 1 MG Tablet PO (09:33)
[2023-12-09] MEDS: Carvedilol 3.125 MG TABLET PO ×2 (09:33→17:05)
[2023-12-09] MEDS: Calcium Carbonate 500 MG Tablet PO (09:33)
[2023-12-09] MEDS: Multivitamins,Ther W-Minerals Tablet 1 TABLET PO (09:34)
[2023-12-09] MEDS: Thiamine Hydrochloride 100 MG Tablet PO (09:34)
[2023-12-09] MEDS: Potassium Chloride Oral Tablet 20 MEQ PO ×2 (09:34→17:05)
[2023-12-09] MEDS: Amiodarone 200 MG Tablet 100 MG PO (09:35)
[2023-12-09] MEDS: Iron Polysaccharide Complex 150 MG CAPSULE PO (09:36)
[2023-12-09] MEDS: Tolterodine Tartrate 2 MG CAP.SA PO (09:36)
[2023-12-09] MEDS: APIXABAN 2.5 MG TABLET (WCH) PO ×2 (09:36→21:07)
[2023-12-09] MEDS: DULoxetine Hcl 60 MG Capsule PO (09:36)
[2023-12-09] MEDS: Losartan Potassium 50 MG Tablet PO (09:36)
[2023-12-09] MEDS: Vibegron 75 MG TABLET PO (09:37)
[2023-12-09] MEDS: Finasteride 5 MG Tablet PO (09:38)
[2023-12-09] MEDS: Furosemide 40 MG Tablet 20 MG PO (09:38)
[2023-12-09] MEDS: Pantoprazole Sodium 40 MG Tablet PO ×2 (09:38→21:07)
[2023-12-09] MEDS: Cholecalciferol (Vit D3) 125 MCG CAPSULE (5,000 UNITS) PO (09:39)
[2023-12-09] MEDS: Ascorbic Acid 500 MG Tablet PO (09:39)
--- NOTE | 2023-12-09 10:08 | NURSING ---
LBM documented 12/07/23. Patient states his last BM was three days ago. Patient requesting prune juice. Same given as requested.
[2023-12-09 17:01] VITALS: BP 125/66; PULSE 60
[2023-12-09] MEDS: Furosemide 20 MG Tablet PO (17:06)
[2023-12-09] MEDS: Atorvastatin Calcium 40 MG Tablet PO (21:07)
[2023-12-09] MEDS: Tamsulosin HCl 0.4 MG Capsule PO (21:07)
[2023-12-09] MEDS: Mirtazapine 30 MG Tablet PO (21:07)
[2023-12-10] MEDS: Acetaminophen 500 MG Tablet 1000 MG PO ×3 (05:35→21:45)
[2023-12-10] MEDS: Levothyroxine 50 MCG Tablet PO (05:35)
[2023-12-10] MEDS: oxyCODONE 5 MG Tablet PO ×3 (07:47→21:47)
[2023-12-10] MEDS: Folic Acid 1 MG Tablet PO (08:56)
[2023-12-10] MEDS: Carvedilol 3.125 MG TABLET PO ×2 (08:56→17:24)
[2023-12-10] MEDS: Potassium Chloride Oral Tablet 20 MEQ PO ×2 (08:57→17:24)
[2023-12-10] MEDS: Multivitamins,Ther W-Minerals Tablet 1 TABLET PO (08:58)
[2023-12-10] MEDS: Thiamine Hydrochloride 100 MG Tablet PO (08:59)
[2023-12-10] MEDS: Amiodarone 200 MG Tablet 100 MG PO (09:01)
[2023-12-10] MEDS: Losartan Potassium 50 MG Tablet PO (09:03)
[2023-12-10] MEDS: DULoxetine Hcl 60 MG Capsule PO (09:04)
[2023-12-10] MEDS: APIXABAN 2.5 MG TABLET (WCH) PO ×2 (09:05→21:43)
[2023-12-10] MEDS: Tolterodine Tartrate 2 MG CAP.SA PO (09:05)
[2023-12-10] MEDS: Iron Polysaccharide Complex 150 MG CAPSULE PO (09:06)
[2023-12-10] MEDS: Vibegron 75 MG TABLET PO (09:06)
[2023-12-10] MEDS: Furosemide 40 MG Tablet 20 MG PO (09:08)
[2023-12-10] MEDS: Finasteride 5 MG Tablet PO (09:09)
[2023-12-10] MEDS: Ascorbic Acid 500 MG Tablet PO (09:10)
[2023-12-10] MEDS: Pantoprazole Sodium 40 MG Tablet PO ×2 (09:10→21:45)
[2023-12-10] MEDS: Cholecalciferol (Vit D3) 125 MCG CAPSULE (5,000 UNITS) PO (09:11)
[2023-12-10 09:18] VITALS: BP 127/68; PULSE 65; RESP 17; TEMP 36.3; O2SAT 92
[2023-12-10 17:20] VITALS: BP 135/76; PULSE 58
[2023-12-10] MEDS: Furosemide 20 MG Tablet PO (17:24)
[2023-12-10] MEDS: Tamsulosin HCl 0.4 MG Capsule PO (21:43)
[2023-12-10] MEDS: Mirtazapine 30 MG Tablet PO (21:45)
[2023-12-10] MEDS: Atorvastatin Calcium 40 MG Tablet PO (21:47)
[2023-12-11] MEDS: Acetaminophen 500 MG Tablet 1000 MG PO ×3 (05:36→21:27)
[2023-12-11] MEDS: Levothyroxine 25 MCG TABLET PO (05:36)
[2023-12-11] MEDS: oxyCODONE 5 MG Tablet PO ×2 (05:38→21:26)
[2023-12-11 05:51] LABS: Hematocrit 34.7 % (40-54)
[2023-12-11] MEDS: Carvedilol 3.125 MG TABLET PO ×2 (08:38→17:32)
[2023-12-11] MEDS: Potassium Chloride Oral Tablet 20 MEQ PO ×2 (08:39→17:32)
[2023-12-11] MEDS: Folic Acid 1 MG Tablet PO (08:39)
[2023-12-11] MEDS: Multivitamins,Ther W-Minerals Tablet 1 TABLET PO (08:40)
[2023-12-11] MEDS: Thiamine Hydrochloride 100 MG Tablet PO (08:40)
[2023-12-11] MEDS: Amiodarone 200 MG Tablet 100 MG PO (08:41)
[2023-12-11] MEDS: Losartan Potassium 50 MG Tablet PO (08:43)
[2023-12-11] MEDS: Tolterodine Tartrate 2 MG CAP.SA PO (08:43)
[2023-12-11] MEDS: DULoxetine Hcl 60 MG Capsule PO (08:43)
[2023-12-11] MEDS: APIXABAN 2.5 MG TABLET (WCH) PO ×2 (08:44→21:28)
[2023-12-11] MEDS: Iron Polysaccharide Complex 150 MG CAPSULE PO (08:44)
[2023-12-11] MEDS: Vibegron 75 MG TABLET PO (08:44)
[2023-12-11] MEDS: Finasteride 5 MG Tablet PO (08:45)
[2023-12-11] MEDS: Furosemide 40 MG Tablet 20 MG PO (08:45)
[2023-12-11] MEDS: Ascorbic Acid 500 MG Tablet PO (08:46)
[2023-12-11] MEDS: Cholecalciferol (Vit D3) 125 MCG CAPSULE (5,000 UNITS) PO (08:46)
[2023-12-11] MEDS: Pantoprazole Sodium 40 MG Tablet PO ×2 (08:53→21:28)
[2023-12-11 08:55] VITALS: BP 137/66; PULSE 60; RESP 12; TEMP 36.6; O2SAT 92
[2023-12-11 13:48] VITALS: BP 141/71; PULSE 55; RESP 16; TEMP 36.2; O2SAT 93
[2023-12-11] MEDS: Furosemide 20 MG Tablet PO (17:32)
[2023-12-11] MEDS: Mirtazapine 30 MG Tablet PO (21:27)
[2023-12-11] MEDS: Tamsulosin HCl 0.4 MG Capsule PO (21:27)
[2023-12-11] MEDS: Atorvastatin Calcium 40 MG Tablet PO (21:28)
[2023-12-12] MEDS: Levothyroxine 25 MCG TABLET PO (05:31)
[2023-12-12] MEDS: Acetaminophen 500 MG Tablet 1000 MG PO ×3 (05:31→20:50)
[2023-12-12 06:06] LABS: Absolute Lymphocyte Count 1.89 X10^3/uL (0.83-4.51); Absolute Neutrophil Count 5.2 X10^3/uL (2.0-7.7); Basophil# 0.05 X10^3/uL; Basophil% 0.6 % (0-1); Eosinophil# 0.25 X10^3/uL; Eosinophils% 3.1 % (0-5); Hematocrit 34.6 % (40-54); Hemoglobin 10.5 g/dL (13.0-16.5); Lymphocyte # 1.89 X10^3/ul (0.83-4.51); Lymphocyte % 23.2 % (19-41); Mean Corp Hgb Conc 30.3 g/dL (32-36); Mean Corpuscular Hgb 28.6 pg (27.0-32.0); Mean Corpuscular Volume 94.3 fL (80-94); Mean Platelet Vol. 8.5 fl (6.2-12.0); Monocyte# 0.71 X10^3/uL; Monocyte% 8.7 % (0-10); NRBC Flagged by Analyzer 0 % (0-5); Neutrophil # 5.16 X10^3/uL (2.7-7.7); Neutrophil % 63.4 % (47-70); Platelet Count 443 K/mm3 (150-450); RBC Distribution Width CV 17.6 % (11.6-14.6); RBC Distribution Width SD 60.4 fl (35.1-43.9); Red Blood Count 3.67 M/mm3 (4.6-6.2); White Blood Count 8.1 K/mm3 (4.4-11.0)
[2023-12-12 06:27] LABS: Anion Gap 5 (5-15); BUN 21 mg/dL (7-18); BUN/Creat Ratio 22.9 RATIO (10-20); Calcium,Total 8.9 mg/dL (8.5-10.1); Chloride 103 mmol/L (98-107); Creatinine, Serum 0.92 mg/dL (0.70-1.30); EST Glomerular Filtration Rate 86 mL/min (>60); Est Glom Filt Rate - Afr Amer 104 mL/min (>60); Estimated Creatinine Clearance 83.88 ml/min; Glucose 85 mg/dL (74-106); Potassium 4.1 mmol/L (3.5-5.1); Sodium Level 138 mmol/L (136-145)
[2023-12-12] MEDS: Amiodarone 200 MG Tablet 100 MG PO (08:35)
[2023-12-12] MEDS: Pantoprazole Sodium 40 MG Tablet PO ×2 (08:36→20:51)
[2023-12-12] MEDS: DULoxetine Hcl 60 MG Capsule PO (08:36)
[2023-12-12] MEDS: APIXABAN 2.5 MG TABLET (WCH) PO ×2 (08:36→20:50)
[2023-12-12] MEDS: Multivitamins,Ther W-Minerals Tablet 1 TABLET PO (08:36)
[2023-12-12] MEDS: Carvedilol 3.125 MG TABLET PO ×2 (08:36→17:27)
[2023-12-12] MEDS: Iron Polysaccharide Complex 150 MG CAPSULE PO (08:36)
[2023-12-12] MEDS: Finasteride 5 MG Tablet PO (08:36)
[2023-12-12] MEDS: Potassium Chloride Oral Tablet 20 MEQ PO ×2 (08:36→17:27)
[2023-12-12] MEDS: Furosemide 40 MG Tablet 20 MG PO (08:36)
[2023-12-12] MEDS: Cholecalciferol (Vit D3) 125 MCG CAPSULE (5,000 UNITS) PO (08:37)
[2023-12-12] MEDS: Vibegron 75 MG TABLET PO (08:37)
[2023-12-12] MEDS: Folic Acid 1 MG Tablet PO (08:37)
[2023-12-12] MEDS: Ascorbic Acid 500 MG Tablet PO (08:37)
[2023-12-12] MEDS: Losartan Potassium 50 MG Tablet PO (08:37)
[2023-12-12] MEDS: Thiamine Hydrochloride 100 MG Tablet PO (08:37)
[2023-12-12] MEDS: Tolterodine Tartrate 2 MG CAP.SA PO (08:37)
[2023-12-12 09:13] VITALS: BMI 30.1
[2023-12-12 10:03] VITALS: BP 141/71; PULSE 63; RESP 16; TEMP 36.4; O2SAT 95
[2023-12-12] MEDS: oxyCODONE 5 MG Tablet PO ×2 (11:33→20:51)
--- NOTE | 2023-12-12 17:00 | CASEMGMT ---
Social Work Pt/ requesting to set DC date. IDT discussed and all parties agreeable to DC 12/16. Pt requesting outpatient PT at [facility]. No DME needs. can transport. SW faxed referral to [facility] for PT. Plan: DC home with 12/16, [facility] OP PT Mis Edge, GEOFF XIAOW
[2023-12-12] MEDS: Furosemide 20 MG Tablet PO (17:28)
[2023-12-12 17:33] VITALS: BP 133/71; PULSE 60
--- NOTE | 2023-12-12 19:25 | DS.PCM_ITS ---
Providers Date of Admission: 11/27/23 Primary Care Physician: MARIELENA Edwards Consultations 11/30/23 17:16 Consult: Gastroenterology Routine Consulting Provider: [facility] Reason for Consult: Anemia, stool guaiac + EMERGENT Consult: No MD Notified: Yes Date Notified: 11/30/23 Time Notified: 17:16 Method of Notification: Text Reason For Visit: L HIP FRACTURE Diagnosis Discharge Diagnosis (1) Fall at home: Status: Acute Code(s): W19.XXXA - Unspecified fall, initial encounter; Y92.009 - Unspecified place in unspecified non-institutional (private) residence as the place of occurrence of the external cause Qualifiers: Encounter type: initial encounter Qualified Code(s): W19.XXXA - Unspecified fall, initial encounter; Y92.009 - Unspecified place in unspecified non-institutional (private) residence as the place of occurrence of the external cause Plan 73 year old male with below past medical history hospitalized for left hip fracture, underwent left hip hemiarthroplasty 11/24/[address] Dorman, complicated by broken drill bit, admitted to TCU with debility, here for rehabilitation, strengthening, prior to discharge home with . * Debility - PT/OT. * Pain - Tylenol 1000mg q8, Oxycodone 5mg q4 prn. * Bowel - senna/colace 2 tablets bid prn. * Adult immunization - Administer pneumonia vaccine, covid vaccine, flu vaccine as appropriate. * DVT prophylaxis - on Eliquis. * Atrial fibrillation - Coreg 3.125mg bidcm, Amiodarone 100mg daily, Eliquis 2.5mg bid. * Hyperlipidemia - Atorvastatin 40mg qhs. * Calcium deficiency - TUMS 500mg tidcm. * Depression - Duloxetine 60mg daily, stable chronic intermediate frame tender use, GDR not recommended. * Vitamin D deficiency - Vitamin D 1.25mg qweek. * BPH - Finasteride 5mg daily, Tamsulosin 0.4mg daily. * Alcohol abuse - Thiamine 100mg daily, Folic acid 1mg daily. * HFrEF - Coreg 3.125mg bidcm, Losartan 50mg daily, Furosemide 20mg bid, Metolazone 2.5mg daily prn. * Hypothyroidism - Levothyroxine 25mcg 5 days/week, 50mcg 2 days/week. * Appetite loss - Mirtazapine 30mg qhs, stable chronic halfway use, GDR not recommended. * Nutrition - MVI 1 tablet daily. * Coronary artery disease - Coreg 3.125mg bidcm, Losartan 50mg daily, NTG 0.4mg sl q5m prn. * GERD - Pantoprazole 20mg daily. * Hypokalemia - KCL 20meq bid. * Overactive bladder - Tolterodine 2mg daily, Gemtasa 75mg daily. Medications at Discharge Home Medications omeprazole 20 mg tablet,delayed release 20 mg PO DAILY reflux 09/26/18 potassium chloride 10 mEq tablet,extended release 20 meq PO BID supplement 11/18/19 aspirin 81 mg tablet,delayed release 81 mg PO QDAY heart health 02/01/22 duloxetine 60 mg capsule,delayed release 60 mg PO DAILY mental health 03/21/23 furosemide 40 mg tablet 20 mg PO .COMPLEX diuretic 03/21/23 mirabegron 50 mg tablet,extended release 24 hr (Myrbetriq) 50 mg PO DAILY BLADDER 05/19/23 atorvastatin 40 mg tablet 40 mg PO QHS cholesterol #0 tabs 07/06/23 levothyroxine 50 mcg tablet 50 mcg PO SuSa@0600 thyroid #0 tabs 07/06/23 metolazone 2.5 mg tablet 2.5 mg PO DAILY PRN FLUID RETENTION #0 tabs 07/06/23 mirtazapine 30 mg tablet 30 mg PO QHS sleep #0 tabs 07/06/23 nitroglycerin 0.4 mg sublingual tablet 0.4 mg sublingual Q5M PRN Cardiac/Chest Pain #0 tabs 07/06/23 finasteride 5 mg tablet 5 mg PO DAILY BPH 30 days #30 tabs 07/28/23 losartan 50 mg tablet 50 mg PO DAILY bp 30 days #30 tabs 07/28/23 carvedilol 3.125 mg tablet 3.125 mg PO BIDCM BP #180 tabs 08/07/23 ergocalciferol (vitamin D2) 1,250 mcg (50,000 unit) capsule 1,250 mcg PO QWEEK vits 09/26/23 acetaminophen 325 mg capsule (Tylenol) 650 mg PO Q6H 11/24/23 amiodarone 200 mg tablet 100 mg PO DAILY heart rate 11/24/23 oxybutynin chloride 10 mg tablet,extended release 24 hr 10 mg PO DAILY bladder 11/24/23 tamsulosin 0.4 mg capsule 0.4 mg PO QHS bph 11/24/23 tramadol 50 mg tablet 50 mg PO DAILY PRN PRN Pain Score 1-10 11/24/23 acetaminophen 500 mg tablet 1,000 mg (2 x 500 mg) PO Q8 pain #0 tabs 11/27/23 apixaban 2.5 mg tablet (Eliquis) 2.5 mg PO BID blood thinner 1 month #60 tabs 11/27/23 calcium carbonate 200 mg calcium (500 mg) chewable tablet 500 mg (2.5 x 200 mg calcium (500 mg)) PO TIDCM supplement #0 tabs 11/27/23 folic acid 1 mg tablet 1 mg PO DAILY@0800 supplement #0 tabs 11/27/23 levothyroxine 25 mcg tablet 25 mcg PO UD thyroid 30 days #0 tabs 11/27/23 linaclotide 145 mcg capsule (Linzess) 145 mcg PO DAILY PRN bowel 30 days #0 caps 11/27/23 multivitamin-iron 9 mg-folic acid 400 mcg-calcium and minerals tablet (Therapeutic-M) 1 tab PO BREAKFAST supplement #0 tabs 11/27/23 oxycodone 5 mg tablet 5 mg PO Q4H PRN PRN Pain Score 6-10 #0 tabs 11/27/23 sennosides 8.6 mg-docusate sodium 50 mg tablet (Stool Softener-Stimulant Lax ative) 2 tab PO BID PRN bowels #0 tabs 11/27/23 thiamine HCl (vitamin B1) 100 mg tablet (Vitamin B-1) 100 mg PO DAILYCM supplement #0 tabs 11/27/23 ascorbic acid (vitamin C) 500 mg tablet 500 mg PO 1000 30 days #30 tabs 12/12/23 cholecalciferol (vitamin D3) 125 mcg (5,000 unit) capsule 125 mcg PO DAILY 30 days #30 caps 12/12/23 furosemide 20 mg tablet 20 mg PO 1800 #0 tabs 12/12/23 furosemide 40 mg tablet 20 mg (1/2 x 40 mg) PO QAM #0 tabs 12/12/23 oxycodone 5 mg tablet 5 mg PO Q4H PRN PRN Pain Score 6-10 7 days #42 tabs 12/12/23 pantoprazole 40 mg tablet,delayed release 40 mg PO BID 30 days #60 tabs 12/12/23 polysaccharide iron complex 150 mg iron capsule (Ferrex) 150 mg PO DAILY 30 days #30 caps 12/12/23 Hospital Course Operations - (Left hip hemiarthroplasty.) Procedures EGD Summary of Care Provided Minutes Spent on Discharge: 35 Hospital Course: 73 year old male with below past medical history hospitalized for left hip fracture, underwent left hip hemiarthroplasty 11/24/[address] Dorman, complicated by broken drill bit, admitted to TCU with debility, here for rehabilitation, strengthening, prior to discharge home with . 12/01/2023 Dr. Borges EGD: Impressions : - Esophageal ulcers with stigmata of recent bleeding. Injected. Treated with a heater probe. - Z-line irregular, 43 cm from the incisors. Biopsied. - No gross lesions in the entire stomach. - Normal first portion of the duodenum. Recommendations : - [facility]. - Resume previous diet. - Use Protonix (pantoprazole) 40 mg PO BID. - Continue present medications. DC home with 12/16, [facility] Physical Exam Const alert General Appearance: cooperative HEENT normocephalic Eyes PERRL and EOMs intact bilaterally Neck supple, no JVD and no carotid bruits Resp normal respiratory effort, normal air movement and clear to auscultation bilaterally Cardio regular rate and regular rhythm GI normal to inspection, nondistended, normoactive bowel sounds, non-tender and non-distended Extremity normal capillary refill General Extremity: Negative for edema Skin no rashes or lesions noted General Skin Exam: no breakdown Psych affect normal Appearance: appropriate Weight / BMI Weight Weight: 92.624 kg Body Mass Index (BMI) 30.1 ABG / Lab / Microbiology Data 12/12/23 05:18 12/12/23 05:18 Laboratory: Laboratory Results - last 24 hr 12/12/23 05:18: WBC 8.1, RBC 3.67 L, Hgb 10.5 L, Hct 34.6 L, MCV 94.3 H, MCH 28.6, MCHC 30.3 L, RDW Std Deviation 60.4 H, RDW Coeff of Elpidio 17.6 H, Plt Count 443, MPV 8.5, Immature Gran % (Auto) 1.000 H, Neut % (Auto) 63.4, Lymph % (Auto) 23.2, [place] % (Auto) 8.7, Eos % (Auto) 3.1, Baso % (Auto) 0.6, Absolute Neuts (auto) 5.2, Absolute Lymphs (auto) 1.89, Nucleated RBC % 0, Sodium 138, Potassium 4.1, Chloride 103, Carbon Dioxide 30.0, Anion Gap 5, BUN 21 H, Creatinine 0.92, Estim Creat Clear Calc 83.88, Est GFR (MDRD) Af Amer 104, Est GFR (MDRD) Non-Af 86, BUN/Creatinine Ratio 22.9 H, Glucose 85, Calcium 8.9 Microbiology: Microbiology 11/30/23 11:20 Stool Stool Occult Blood (LOUIE) - Final Occult Blood Positive D/C Instructions Discharge Diet: No restrictions Discharge Activity: Return to Normal Activity, May Shower and Use Walker Weight Bearing Status: Weight bearing as tolerated Call your doctor if you observe: Fever of 101 or Higher, Inability to urinate, Inability to have a bowel movement, Shortness of breath, Dizziness, Fainting spells, Swelling in the ankles, Chest pain and Uncontrolled pain Additional Instructions: DC home with 12/16, [facility] Please Follow Up With: Janneth Lange PA When: 01/07/2024. Meaningful Use Info Meaningful Use Diagnoses (Choose all that apply): None applicable Discharge Plan Admission Admit Date/Time: 11/27/23 14:58 Primary Reason for Your Visit: Debility. Attending Provider: Good Lizama Chi Primary Care Provider: Kaylin Hui Instructions Additional Instructions / Restrictions: DC home with 12/16, [facility] Discharge Orders/Prescriptions Prescriptions: New furosemide 40 mg Tablet 20 mg PO QAM Qty: 0 0RF ascorbic acid (vitamin C) 500 mg Tablet 500 mg PO 1000 30 Days Qty: 30 0RF pantoprazole 40 mg Tablet,Delayed Release (Dr/Ec) 40 mg PO BID 30 Days Qty: 60 0RF oxycodone 5 mg Tablet 5 mg PO Q4H PRN PRN (Reason: Pain Score 6-10) 7 Days Qty: 42 0RF cholecalciferol (vitamin D3) 125 mcg (5,000 unit) Capsule 125 mcg PO DAILY 30 Days Qty: 30 0RF polysaccharide iron complex [Ferrex 150] 150 mg iron Capsule 150 mg PO DAILY 30 Days Qty: 30 0RF furosemide 20 mg Tablet 20 mg PO 1800 Qty: 0 0RF Continued potassium chloride 10 mEq tablet extended release 20 meq PO BID duloxetine 60 mg capsule,delayed release(DR/EC) 60 mg PO DAILY Myrbetriq 50 mg tablet extended release 24 hr 50 mg PO DAILY Patient Comments: TAKE 1 TABLET BY MOUTH ONCE DAILY metolazone 2.5 mg Tablet 2.5 mg PO DAILY PRN (Reason: FLUID RETENTION) Qty: 0 0RF atorvastatin 40 mg Tablet 40 mg PO QHS Qty: 0 0RF levothyroxine 50 mcg Tablet 50 mcg PO SuSa@0600 Qty: 0 0RF mirtazapine 30 mg Tablet 30 mg PO QHS Qty: 0 0RF nitroglycerin 0.4 mg Tablet, Sublingual 0.4 mg sublingual Q5M PRN (Reason: Cardiac/Chest Pain) Qty: 0 0RF losartan 50 mg Tablet 50 mg PO DAILY 30 Days Qty: 30 0RF finasteride 5 mg Tablet 5 mg PO DAILY 30 Days Qty: 30 0RF oxybutynin chloride 10 mg tablet extended release 24hr 10 mg PO DAILY Patient Comments: TAKE 1 TABLET BY MOUTH ONCE DAILY amiodarone 200 mg tablet 100 mg PO DAILY tamsulosin 0.4 mg Capsule 0.4 mg PO QHS acetaminophen 500 mg Tablet 1,000 mg PO Q8 Qty: 0 0RF Rx Instructions: 1 g every 8 hourly for 1 week and then every 8 hourly as needed for moderate to severe pain sennosides-docusate sodium [Stool Softener-Stimulant Laxat] 8.6-50 mg Tablet 2 tab PO BID PRN (Reason: bowels) Qty: 0 0RF Rx Instructions: Hold if more than 2 bowel movements per day thiamine HCl (vitamin B1) [Vitamin B-1] 100 mg Tablet 100 mg PO DAILYCM Qty: 0 0RF folic acid 1 mg Tablet 1 mg PO DAILY@0800 Qty: 0 0RF Therapeutic-M 9 mg iron-400 mcg Tablet 1 tab PO BREAKFAST Qty: 0 0RF Eliquis 2.5 mg tablet 2.5 mg PO BID 30 Days Qty: 60 0RF Linzess 145 mcg capsule 145 mcg PO DAILY PRN 30 Days Qty: 0 0RF Rx Instructions: Can use Senna S, 2 tablet twice daily as needed for constipation levothyroxine 25 mcg Tablet 25 mcg PO UD 30 Days Qty: 0 0RF Rx Instructions: Advised to take on Monday, Monday, Monday and Monday; on odd days of the week carvedilol 3.125 mg tablet 3.125 mg PO BIDCM Qty: 180 3RF No Action aspirin 81 mg tablet,delayed release (DR/EC) 81 mg PO QDAY omeprazole 20 mg tablet,delayed release (DR/EC) 20 mg PO DAILY furosemide 40 mg tablet 20 mg PO .COMPLEX Rx Instructions: 40mg in AM 20mg in PM ergocalciferol (vitamin D2) 1,250 mcg (50,000 unit) capsule 1,250 mcg PO QWEEK Rx Instructions: every monday acetaminophen [Tylenol] 325 mg capsule 650 mg PO Q6H Hold Instructions: Hold while taking acetaminophen 1 g every 8 hourly after hip surgery. tramadol 50 mg Tablet 50 mg PO DAILY PRN PRN (Reason: Pain Score 1-10) Hold Instructions: Hold while taking oxycodone. oxycodone 5 mg Tablet 5 mg PO Q4H PRN PRN (Reason: Pain Score 6-10) Qty: 0 0RF Rx Instructions: For severe pain, 7-10/10 intensity calcium carbonate 200 mg calcium (500 mg) Tablet,Chewable 500 mg PO TIDCM Qty: 0 0RF Referrals / Follow Up: Kaylin Hui PA [Primary Care Provider] - Disposition Disposition (needs filled in before D/C Order can be placed): Home, Self Care
[2023-12-12 20:49] VITALS: BP 130/70; PULSE 54; RESP 18; TEMP 36.6; O2SAT 96
[2023-12-12] MEDS: Mirtazapine 30 MG Tablet PO (20:50)
[2023-12-12] MEDS: Tamsulosin HCl 0.4 MG Capsule PO (20:51)
[2023-12-12] MEDS: Atorvastatin Calcium 40 MG Tablet PO (20:51)
[2023-12-12 21:03] VITALS: O2SAT 96
[2023-12-13] MEDS: oxyCODONE 5 MG Tablet PO ×2 (05:53→19:46)
[2023-12-13] MEDS: Acetaminophen 500 MG Tablet 1000 MG PO ×3 (05:54→20:59)
[2023-12-13] MEDS: Levothyroxine 25 MCG TABLET PO (05:54)
[2023-12-13 06:34] VITALS: O2SAT 99
[2023-12-13] MEDS: Folic Acid 1 MG Tablet PO (08:00)
[2023-12-13] MEDS: Potassium Chloride Oral Tablet 20 MEQ PO ×2 (08:00→17:34)
[2023-12-13] MEDS: Multivitamins,Ther W-Minerals Tablet 1 TABLET PO (08:00)
[2023-12-13] MEDS: Carvedilol 3.125 MG TABLET PO ×2 (08:00→17:34)
[2023-12-13] MEDS: Thiamine Hydrochloride 100 MG Tablet PO (08:01)
[2023-12-13] MEDS: Amiodarone 200 MG Tablet 100 MG PO (08:01)
[2023-12-13] MEDS: Losartan Potassium 50 MG Tablet PO (08:01)
[2023-12-13] MEDS: DULoxetine Hcl 60 MG Capsule PO (08:01)
[2023-12-13] MEDS: Finasteride 5 MG Tablet PO (08:02)
[2023-12-13] MEDS: Tolterodine Tartrate 2 MG CAP.SA PO (08:02)
[2023-12-13] MEDS: Iron Polysaccharide Complex 150 MG CAPSULE PO (08:02)
[2023-12-13] MEDS: APIXABAN 2.5 MG TABLET (WCH) PO ×2 (08:02→20:59)
[2023-12-13] MEDS: Vibegron 75 MG TABLET PO (08:02)
[2023-12-13] MEDS: Pantoprazole Sodium 40 MG Tablet PO ×2 (08:03→20:59)
[2023-12-13] MEDS: Ascorbic Acid 500 MG Tablet PO (08:03)
[2023-12-13] MEDS: Cholecalciferol (Vit D3) 125 MCG CAPSULE (5,000 UNITS) PO (08:03)
[2023-12-13] MEDS: Furosemide 40 MG Tablet 20 MG PO (08:08)
[2023-12-13 16:00] VITALS: BP 96/46; PULSE 59; RESP 16; TEMP 36.2; O2SAT 93
[2023-12-13] MEDS: Furosemide 20 MG Tablet PO (17:34)
[2023-12-13] MEDS: Atorvastatin Calcium 40 MG Tablet PO (20:59)
[2023-12-13] MEDS: Mirtazapine 30 MG Tablet PO (20:59)
[2023-12-13] MEDS: Tamsulosin HCl 0.4 MG Capsule PO (20:59)
[2023-12-14] MEDS: Levothyroxine 25 MCG TABLET PO (05:11)
[2023-12-14] MEDS: Acetaminophen 500 MG Tablet 1000 MG PO ×3 (05:11→21:51)
[2023-12-14] MEDS: DULoxetine Hcl 60 MG Capsule PO (09:35)
[2023-12-14] MEDS: Iron Polysaccharide Complex 150 MG CAPSULE PO (09:35)
[2023-12-14] MEDS: Vibegron 75 MG TABLET PO (09:35)
[2023-12-14] MEDS: Finasteride 5 MG Tablet PO (09:35)
[2023-12-14] MEDS: APIXABAN 2.5 MG TABLET (WCH) PO ×2 (09:35→21:52)
[2023-12-14] MEDS: Amiodarone 200 MG Tablet 100 MG PO (09:35)
[2023-12-14] MEDS: Pantoprazole Sodium 40 MG Tablet PO ×2 (09:35→21:51)
[2023-12-14] MEDS: Ascorbic Acid 500 MG Tablet PO (09:35)
[2023-12-14] MEDS: Cholecalciferol (Vit D3) 125 MCG CAPSULE (5,000 UNITS) PO (09:36)
[2023-12-14] MEDS: Carvedilol 3.125 MG TABLET PO ×2 (09:36→17:59)
[2023-12-14] MEDS: Tolterodine Tartrate 2 MG CAP.SA PO (09:36)
[2023-12-14] MEDS: Multivitamins,Ther W-Minerals Tablet 1 TABLET PO (09:36)
[2023-12-14] MEDS: Furosemide 40 MG Tablet 20 MG PO (09:36)
[2023-12-14] MEDS: Losartan Potassium 50 MG Tablet PO (09:36)
[2023-12-14] MEDS: Folic Acid 1 MG Tablet PO (09:36)
[2023-12-14] MEDS: Thiamine Hydrochloride 100 MG Tablet PO (09:37)
[2023-12-14] MEDS: Potassium Chloride Oral Tablet 20 MEQ PO ×2 (09:37→17:59)
[2023-12-14] MEDS: oxyCODONE 5 MG Tablet PO ×2 (09:42→21:50)
[2023-12-14 10:00] VITALS: BP 136/72; PULSE 78; RESP 16; TEMP 36.5; O2SAT 96
[2023-12-14] MEDS: Furosemide 20 MG Tablet PO (17:59)
[2023-12-14] MEDS: Tamsulosin HCl 0.4 MG Capsule PO (21:51)
[2023-12-14] MEDS: Atorvastatin Calcium 40 MG Tablet PO (21:51)
[2023-12-14] MEDS: Mirtazapine 30 MG Tablet PO (21:51)
[2023-12-15] MEDS: Levothyroxine 25 MCG TABLET PO (05:45)
[2023-12-15] MEDS: Acetaminophen 500 MG Tablet 1000 MG PO ×3 (05:45→21:42)
[2023-12-15 09:42] VITALS: BP 107/62; PULSE 60; RESP 18; TEMP 36.6; O2SAT 92
[2023-12-15] MEDS: Multivitamins,Ther W-Minerals Tablet 1 TABLET PO (09:47)
[2023-12-15] MEDS: Thiamine Hydrochloride 100 MG Tablet PO (09:47)
[2023-12-15] MEDS: Folic Acid 1 MG Tablet PO (09:47)
[2023-12-15] MEDS: Carvedilol 3.125 MG TABLET PO ×2 (09:47→18:08)
[2023-12-15] MEDS: Potassium Chloride Oral Tablet 20 MEQ PO ×2 (09:47→18:08)
[2023-12-15] MEDS: Losartan Potassium 50 MG Tablet PO (09:48)
[2023-12-15] MEDS: DULoxetine Hcl 60 MG Capsule PO (09:48)
[2023-12-15] MEDS: Amiodarone 200 MG Tablet 100 MG PO (09:48)
[2023-12-15] MEDS: Tolterodine Tartrate 2 MG CAP.SA PO (09:48)
[2023-12-15] MEDS: APIXABAN 2.5 MG TABLET (WCH) PO ×2 (09:48→21:42)
[2023-12-15] MEDS: Iron Polysaccharide Complex 150 MG CAPSULE PO (09:49)
[2023-12-15] MEDS: Pantoprazole Sodium 40 MG Tablet PO ×2 (09:49→21:42)
[2023-12-15] MEDS: Vibegron 75 MG TABLET PO (09:49)
[2023-12-15] MEDS: Finasteride 5 MG Tablet PO (09:49)
[2023-12-15] MEDS: Cholecalciferol (Vit D3) 125 MCG CAPSULE (5,000 UNITS) PO (09:49)
[2023-12-15] MEDS: Furosemide 40 MG Tablet 20 MG PO (09:49)
[2023-12-15] MEDS: Ascorbic Acid 500 MG Tablet PO (09:49)
--- NOTE | 2023-12-15 09:58 | MDS.RN ---
MDS pain interview completed.
[2023-12-15 10:00] VITALS: PULSE 60; RESP 16; O2SAT 92
--- NOTE | 2023-12-15 10:02 | MDS.RN ---
Pain interview for MDS completed.
[2023-12-15] MEDS: oxyCODONE 5 MG Tablet PO ×2 (10:04→21:42)
--- NOTE | 2023-12-15 10:53 | CASEMGMT ---
Social Work BIMS () and PHQ-2 () completed for MDS assessment. 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
[2023-12-15] MEDS: Furosemide 20 MG Tablet PO (18:09)
[2023-12-15 18:10] VITALS: BP 141/76; PULSE 66
[2023-12-15] MEDS: Mirtazapine 30 MG Tablet PO (21:42)
[2023-12-15] MEDS: Tamsulosin HCl 0.4 MG Capsule PO (21:42)
[2023-12-15] MEDS: Atorvastatin Calcium 40 MG Tablet PO (21:42)
[2023-12-16] MEDS: oxyCODONE 5 MG Tablet PO ×2 (04:31→21:41)
[2023-12-16] MEDS: Acetaminophen 500 MG Tablet 1000 MG PO ×3 (05:20→21:38)
[2023-12-16] MEDS: Levothyroxine 50 MCG Tablet PO (05:20)
[2023-12-16 09:25] VITALS: BP 125/67; PULSE 56; RESP 16; TEMP 36.1; O2SAT 92
[2023-12-16] MEDS: Carvedilol 3.125 MG TABLET PO ×2 (09:30→17:33)
[2023-12-16] MEDS: Multivitamins,Ther W-Minerals Tablet 1 TABLET PO (09:30)
[2023-12-16] MEDS: Potassium Chloride Oral Tablet 20 MEQ PO ×2 (09:30→17:33)
[2023-12-16] MEDS: Folic Acid 1 MG Tablet PO (09:30)
[2023-12-16] MEDS: Finasteride 5 MG Tablet PO (09:31)
[2023-12-16] MEDS: Vibegron 75 MG TABLET PO (09:31)
[2023-12-16] MEDS: Thiamine Hydrochloride 100 MG Tablet PO (09:31)
[2023-12-16] MEDS: Cholecalciferol (Vit D3) 125 MCG CAPSULE (5,000 UNITS) PO (09:31)
[2023-12-16] MEDS: Tolterodine Tartrate 2 MG CAP.SA PO (09:31)
[2023-12-16] MEDS: Pantoprazole Sodium 40 MG Tablet PO ×2 (09:31→21:38)
[2023-12-16] MEDS: DULoxetine Hcl 60 MG Capsule PO (09:31)
[2023-12-16] MEDS: Ascorbic Acid 500 MG Tablet PO (09:31)
[2023-12-16] MEDS: APIXABAN 2.5 MG TABLET (WCH) PO ×2 (09:31→21:37)
[2023-12-16] MEDS: Iron Polysaccharide Complex 150 MG CAPSULE PO (09:31)
[2023-12-16] MEDS: Furosemide 40 MG Tablet 20 MG PO (09:32)
[2023-12-16] MEDS: Amiodarone 200 MG Tablet 100 MG PO (09:33)
[2023-12-16] MEDS: Losartan Potassium 50 MG Tablet PO (09:33)
[2023-12-16] MEDS: Furosemide 20 MG Tablet PO (17:33)
[2023-12-16 17:34] VITALS: BP 130/66; PULSE 57
[2023-12-16] MEDS: Tamsulosin HCl 0.4 MG Capsule PO (21:37)
[2023-12-16] MEDS: Atorvastatin Calcium 40 MG Tablet PO (21:37)
[2023-12-16] MEDS: Mirtazapine 30 MG Tablet PO (21:38)
[2023-12-17] MEDS: Levothyroxine 50 MCG Tablet PO (05:32)
[2023-12-17] MEDS: Acetaminophen 500 MG Tablet 1000 MG PO (05:32)
[2023-12-17 08:04] VITALS: BP 127/69; PULSE 60; RESP 16; TEMP 36.3; O2SAT 92
[2023-12-17] MEDS: oxyCODONE 5 MG Tablet PO (08:08)
[2023-12-17] MEDS: Carvedilol 3.125 MG TABLET PO (08:08)
[2023-12-17] MEDS: Folic Acid 1 MG Tablet PO (08:09)
[2023-12-17] MEDS: Multivitamins,Ther W-Minerals Tablet 1 TABLET PO (08:09)
[2023-12-17] MEDS: Thiamine Hydrochloride 100 MG Tablet PO (08:09)
[2023-12-17] MEDS: Potassium Chloride Oral Tablet 20 MEQ PO (08:09)
[2023-12-17] MEDS: Amiodarone 200 MG Tablet 100 MG PO (08:10)
[2023-12-17] MEDS: Losartan Potassium 50 MG Tablet PO (08:10)
[2023-12-17] MEDS: Tolterodine Tartrate 2 MG CAP.SA PO (08:10)
[2023-12-17] MEDS: DULoxetine Hcl 60 MG Capsule PO (08:10)
[2023-12-17] MEDS: Vibegron 75 MG TABLET PO (08:11)
[2023-12-17] MEDS: Furosemide 40 MG Tablet 20 MG PO (08:11)
[2023-12-17] MEDS: APIXABAN 2.5 MG TABLET (WCH) PO (08:11)
[2023-12-17] MEDS: Iron Polysaccharide Complex 150 MG CAPSULE PO (08:11)
[2023-12-17] MEDS: Cholecalciferol (Vit D3) 125 MCG CAPSULE (5,000 UNITS) PO (08:12)
[2023-12-17] MEDS: Finasteride 5 MG Tablet PO (08:12)
[2023-12-17] MEDS: Pantoprazole Sodium 40 MG Tablet PO (08:12)
[2023-12-17] MEDS: Ascorbic Acid 500 MG Tablet PO (08:12)
== END 2023-12-17 11:15 | disposition home or self-care (01) | DRG 559 ==
PROVIDERS: Admitting Provider Family Medicine Geriatric Medicine; PCP Physician Assistant; Visit Provider Family Medicine Geriatric Medicine
DX: S72.002D Fracture of unspecified part of neck of left femur, subsequent encounter for closed fracture with routine healing (principal); K22.11 Ulcer of esophagus with bleeding; G21.19 Other drug induced secondary parkinsonism; I50.22 Chronic systolic (congestive) heart failure; I11.0 Hypertensive heart disease with heart failure; I48.0 Paroxysmal atrial fibrillation; F10.20 Alcohol dependence, uncomplicated; D64.9 Anemia, unspecified; E03.9 Hypothyroidism, unspecified; F32.A Depression, unspecified; K21.9 Gastro-esophageal reflux disease without esophagitis; E87.6 Hypokalemia; I25.10 Atherosclerotic heart disease of native coronary artery without angina pectoris; E55.9 Vitamin D deficiency, unspecified; W19.XXXD Unspecified fall, subsequent encounter; I25.5 Ischemic cardiomyopathy; E78.5 Hyperlipidemia, unspecified; N40.0 Benign prostatic hyperplasia without lower urinary tract symptoms; Z87.891 Personal history of nicotine dependence; N32.81 Overactive bladder; Z96.642 Presence of left artificial hip joint; Z79.899 Other long term (current) drug therapy; Z79.890 Hormone replacement therapy; Z95.810 Presence of automatic (implantable) cardiac defibrillator; Z79.01 Long term (current) use of anticoagulants; Z96.643 Presence of artificial hip joint, bilateral; Z79.82 Long term (current) use of aspirin
CPT/HCPCS: 36415; 71046; 73502; 80048; 80061; 82274; 85014; 85018; 85025; 92507; 92523; 97110; 97112; 97116; 97162; 97166; 97530; 97535; 97802; J2405

== ENCOUNTER 2023-12-01 15:55 | Day surgery (SDC) | payer MEDICARE, BC, SELFPAY ==
--- NOTE | 2023-12-01 | IMM_PTH ---
PATIENT: AMANDA HERNANDEZ LOC: EN U#:[id number] AGE/SX: 73/M ROOM: RE12/01/[address]: Dr. Po Borges DO : 1950 BED: DIS: 12/01/2023 SPEC #: [id number] RECD: 12/05/23 16:07 STATUS: SHAYY ELISA #: [id number] DEMARCO: 12/01/23 00:[address]: Po Borges DEPT: IMMUNOHISTOCHEMISTRY RECD BY: Benigno Chaudhry ENTERED: 12/05/23 16:08 SP TYPE: IMMUNO OTHR DR: MARIELENA Edwards Tissues: Esophagus, NOS Procedures: P53 (initial) KI-67 (add) PHYSICIAN & INSTITUTION [place] [id number] SPECIMEN INFORMATION: Tissue Source: Distal Esophagus Clinical Info: Anemia Specimen Number: [id number] CPT code: 11211,15532 METHODOLOGY: Deparaffinized sections of prefer/formalin-fixed tissue or PAP/DQ stained slides are incubated with monoclonal/polyclonal antibodies/oligonucleotide probes. Localization is made via biotin free immunoperoxidase method. Appropriate controls are performed and reacted as expected. Results on target cell population are indicated in the following table: RESULTS: ANTIBODY / CLONE RESULT P53 (DO-7) positive, focal (wild type pattern) Ki-67 (30-9) positive, low These tests were developed and their performance characteristics determined by [facility]. They may not have been cleared or approved by the U.[place]. Food and Drug Administration. The FDA has determined that such clearance or approval is not necessary. The above immunohistochemical/dualISH markers are ordered and reviewed by the Pathologist. INTERPRETATION: Distal esophagus, biopsy; Negative for dysplasia. MAXINE/ 12/06/23
--- NOTE | 2023-12-01 | ESO_PTH ---
PATIENT: AMANDA HERNANDEZ LOC: EN U#:[id number] AGE/SX: 73/M ROOM: RE12/01/[address]: Dr. Po Borges DO : 1950 BED: DIS: 12/01/2023 SPEC #: [id number] RECD: 12/01/23 17:01 STATUS: SHAYY ELISA #: [id number] DEMARCO: 12/01/23 00:[address]: Po Borges DEPT: SURGICAL PATHOLOGY RECD BY: Earl Kerns ENTERED: 12/04/23 09:33 SP TYPE: MARE MORROW DR: MARIELENA Edwards Tissues: Esophagus, NOS Procedures: Special Stain Group II Surgery Specimen Level IV Alcian Blue/PAS (control) HEADER OPERATION: EGD with biopsy PRE-OP DIAGNOSIS: Anemia TISSUE SUBMITTED: Distal esophagus biopsy MICROSCOPIC DIAGNOSIS Distal esophagus, biopsy: Fragments of gastroesophageal mucosa with focal intestinal metaplasia (goblet cell metaplasia), consistent with Lovelace's esophagus. Chronic inflammation. Negative for dysplasia. See comment. SJ:rg 12/05/2023 COMMENT Alcian blue/PAS stain with matched control is used in the evaluation of the specimen. Immunohistochemistry ([id number]) for P53 and Ki-67 will be performed and results will be reported separately. MICROSCOPIC DESCRIPTION Slides are reviewed. GROSS DESCRIPTION Received in fixative is one container labeled with the patient's name and designated distal esophagus biopsy. The specimen consists of multiple irregular fragments of light temple soft tissue that in aggregate measure 0.8 x 0.6 x 0.1 cm. The specimen is totally submitted in one cassette. AM: 12/04/2023 TC:5 CPT:02266, 33423
[2023-12-01 15:19] VITALS: BP 143/75; PULSE 70; RESP 16; TEMP 37.1; O2SAT 94; BMI 29.5
[2023-12-01] MEDS: Lactated Ringers 1,000 ML 15 ML IV (15:37)
[2023-12-01 16:45] VITALS: BP 139/77; BP 143/75; PULSE 78; RESP 18; TEMP 36.3; O2SAT 96
--- NOTE | 2023-12-01 16:48 | OP.EGD_ITS ---
Patient Name: Tio Kinney Procedure Date: 12/01/2023 4:20 PM Date of : 1950 Age: 73 Procedure: Upper GI endoscopy Indications: Iron deficiency anemia Providers: Po Borges DO Medicines: Monitored Anesthesia Care Patient Profile: This is a 73 year old male. Refer to note in patient chart for documentation of history and physical. Patient has symptoms of acute epigastric abdominal pain. Complications: No immediate complications. Procedure: Pre-Anesthesia Assessment: - Prior to the procedure, a History and Physical was performed, and patient medications and allergies were reviewed. The risks and benefits of the procedure and the sedation options and risks were discussed with the patient. All questions were answered and informed consent was obtained. Patient identification and proposed procedure were verified by the physician in the pre-procedure area. Mental Status Examination: alert and oriented. Airway Examination: normal oropharyngeal airway and neck mobility. Respiratory Examination: clear to auscultation. CV Examination: normal. Prophylactic Antibiotics: The patient does not require prophylactic antibiotics. Prior Anticoagulants: The patient has taken no anticoagulant or antiplatelet agents. After reviewing the risks and benefits, the patient was deemed in satisfactory condition to undergo the procedure. The anesthesia plan was to use monitored anesthesia care (MAC). Immediately prior to administration of medications, the patient was re-assessed for adequacy to receive sedatives. The heart rate, respiratory rate, oxygen saturations, blood pressure, adequacy of pulmonary ventilation, and response to care were monitored throughout the procedure. The physical status of the patient was re-assessed after the procedure. After obtaining informed consent, the endoscope was passed under direct vision. Throughout the procedure, the patient's blood pressure, pulse, and oxygen saturations were monitored continuously. The Endoscope was introduced through the mouth, and advanced to the second part of duodenum. The upper GI endoscopy was accomplished without difficulty. The patient tolerated the procedure well. Scope In: 4:32:09 PM Scope Out: 4:35:55 PM Total Procedure Duration Time 0 hours 3 minutes 46 seconds Findings: Two cratered esophageal ulcers with stigmata of recent bleeding were found 38 to 40 cm from the incisors. The largest lesion was 4 mm in largest dimension. Area was successfully injected with 5 mL of a 0.1 mg/mL solution of epinephrine for drug delivery. Coagulation for hemostasis using heater probe was successful. Estimated blood loss was minimal. The Z-line was irregular and was found 43 cm from the incisors. Biopsies were taken with a cold forceps for histology. Verification of patient identification for the specimen was done. Estimated blood loss was minimal. No gross lesions were noted in the entire examined stomach. The first portion of the duodenum was normal. Impression: - Esophageal ulcers with stigmata of recent bleeding. Injected. Treated with a heater probe. - Z-line irregular, 43 cm from the incisors. Biopsied. - No gross lesions in the entire stomach. - Normal first portion of the duodenum. Recommendation: - [facility] to [facility] care. - Resume previous diet. - Use Protonix (pantoprazole) 40 mg PO BID. - Continue present medications. Procedure Code(s): --- Professional --- 21286, 59, Esophagogastroduodenoscopy, flexible, transoral; with control of bleeding, any method 97666, Esophagogastroduodenoscopy, flexible, transoral; with biopsy, single or multiple 46668, 59,51, Esophagogastroduodenoscopy, flexible, transoral; with directed submucosal injection(s), any substance CPT copyright 2021 [employer]. All rights reserved. The codes documented in this report are preliminary and upon machine room operator review may be revised to meet current compliance requirements. Po Borges DO 12/01/2023 4:48:24 PM This report has been signed electronically. Number of Addenda: 0 Note Initiated On: 12/01/2023 4:20 PM
[2023-12-01 16:49] VITALS: BP 143/75; BP 157/80; PULSE 73; RESP 18; O2SAT 96
--- NOTE | 2023-12-01 16:49 | OP.CCLET_ITS ---
12/01/2023 Kaylin Hui Re : Upper GI endoscopy procedure for Tio Hui This procedure was performed on Friday, December 01, 2023. My impressions and recommendations are as follows: Impressions : - Esophageal ulcers with stigmata of recent bleeding. Injected. Treated with a heater probe. - Z-line irregular, 43 cm from the incisors. Biopsied. - No gross lesions in the entire stomach. - Normal first portion of the duodenum. Recommendations : - [facility] patient to [facility]. - Resume previous diet. - Use Protonix (pantoprazole) 40 mg PO BID. - Continue present medications. My findings are described in the full procedure note, which is enclosed. If I can be of further assistance, please feel free to contact me at . Sincerely, Po Friend, 12/01/2023 4:48:24 PM This report has been signed electronically.
[2023-12-01 16:55] VITALS: BP 134/82; BP 143/75; PULSE 72; RESP 14; O2SAT 96
[2023-12-01 17:03] VITALS: BP 143/75; BP 144/74; PULSE 73; RESP 18; TEMP 37.5; O2SAT 93
[2023-12-01 17:11] VITALS: BP 143/75
== END 2023-12-01 17:22 | disposition home or self-care (01) ==
LOC: EN 05-21 08:27
PROVIDERS: PCP Physician Assistant; Referring Provider Physician Assistant; Visit Provider Internal Medicine Gastroenterology
PROC: 0DJ08ZZ Inspection of Upper Intestinal Tract, Via Natural or Artificial Opening Endoscopic (ICD-10-PCS; CPT 43235; principal; 2023-12-01 15:55)
DX: D50.9 Iron deficiency anemia, unspecified (principal); I48.91 Unspecified atrial fibrillation; F10.20 Alcohol dependence, uncomplicated; K22.70 Barrett's esophagus without dysplasia; K20.90 Esophagitis, unspecified without bleeding; I25.10 Atherosclerotic heart disease of native coronary artery without angina pectoris; I10 Essential (primary) hypertension; E03.9 Hypothyroidism, unspecified; E78.5 Hyperlipidemia, unspecified; K21.9 Gastro-esophageal reflux disease without esophagitis; N40.0 Benign prostatic hyperplasia without lower urinary tract symptoms; F32.A Depression, unspecified; F41.9 Anxiety disorder, unspecified; N32.81 Overactive bladder; G21.19 Other drug induced secondary parkinsonism; I25.2 Old myocardial infarction; Z86.16 Personal history of COVID-19; Z79.01 Long term (current) use of anticoagulants; Z79.82 Long term (current) use of aspirin; Z79.899 Other long term (current) drug therapy; Z95.810 Presence of automatic (implantable) cardiac defibrillator
CPT/HCPCS: 43239; 43255; 88305; 88313; 88341; 88342; J7120

== ENCOUNTER → 2024-01-24 | Outpatient (CLI) | payer MEDICARE, BC, SELFPAY ==
[2024-01-24 17:13] LABS: Amphetamine Urine VISTA NEGATIVE (<1000 ng/mL); Barbiturate Urine VISTA NEGATIVE (< 200 ng/mL); Benzodiazepine Urine VISTA NEGATIVE (< 200 ng/mL); Cocaine Urine VISTA NEGATIVE (< 300 ng/mL); Ecstacy Urine VISTA NEGATIVE (< 500 ng/mL); Methadone Urine VISTA NEGATIVE (< 300 ng/mL); PCP Urine VISTA NEGATIVE (< 25 ng/mL); THC Urine VISTA NEGATIVE (< 50 ng/mL); Vista UDS pH Range 6
[2024-01-24 17:18] LABS: OXY Internal Control LINE = VALID (VALID); Oxycodone Drug Screen Positive (<100 ng/mL)
== END | disposition home or self-care (01) ==
LOC: LAB 15:31
PROVIDERS: PCP Physician Assistant; Referring Provider Anesthesiology Pain Medicine; Visit Provider Anesthesiology Pain Medicine
DX: F11.20 Opioid dependence, uncomplicated (principal)
CPT/HCPCS: 80307; 80365; G0480

== ENCOUNTER → 2024-02-21 | Outpatient (CLI) | payer MEDICARE, BC, SELFPAY ==
[2024-02-21 16:41] LABS: Amphetamine Urine VISTA NEGATIVE (<1000 ng/mL); Barbiturate Urine VISTA NEGATIVE (< 200 ng/mL); Benzodiazepine Urine VISTA NEGATIVE (< 200 ng/mL); Cocaine Urine VISTA NEGATIVE (< 300 ng/mL); Ecstacy Urine VISTA NEGATIVE (< 500 ng/mL); Methadone Urine VISTA NEGATIVE (< 300 ng/mL); PCP Urine VISTA NEGATIVE (< 25 ng/mL); THC Urine VISTA NEGATIVE (< 50 ng/mL); Vista UDS pH Range 5
== END | disposition home or self-care (01) ==
PROVIDERS: PCP Physician Assistant; Referring Provider Family Medicine Geriatric Medicine; Visit Provider Family Medicine Geriatric Medicine
DX: F11.20 Opioid dependence, uncomplicated (principal)
CPT/HCPCS: 80307

== ENCOUNTER → 2024-11-14 | Outpatient (CLI) | payer MEDICARE, BC, SELFPAY ==
--- NOTE | 2024-11-14 12:59 | PCM.PR.HP ---
History of Present Illness General Arrival date:: 11/14/24 Arrival time:: 12:59 Date of Referral:: 11/05/24 Date of Evaluation: 11/14/24 Referring Physician: Dr. Sonu Riojas Primary Diagnosis: Dyspnea and respiratory abnormalities History of Present Pulmonary Event mMRC Breathless Scale: When is the patient short of breath? Y/N Grade: Description of Breathlessness: 0 I only get breathless with strenuous exercise. 1 I get short of breath when hurrying on level ground or walking up a slight hill. 2 On level ground, I walk slower than people of the same age because of breathless, or have to stop for breath when walking at my own pace. 3 I stop for breath after walking 100 yards or after a few minutes on level ground. 4 I am too breathless to leave the house or I am breathless when dressing. Medications Home Medications omeprazole 20 mg tablet,delayed release 20 mg PO DAILY reflux 09/26/18 potassium chloride 10 mEq tablet,extended release 20 meq PO BID supplement 11/18/19 aspirin 81 mg tablet,delayed release 81 mg PO QDAY heart health 02/01/22 duloxetine 60 mg capsule,delayed release 60 mg PO DAILY mental health 03/21/23 mirabegron 50 mg tablet,extended release 24 hr (Myrbetriq) 50 mg PO DAILY BLADDER 05/19/23 atorvastatin 40 mg tablet 40 mg PO QHS cholesterol #0 tabs 07/06/23 metolazone 2.5 mg tablet 2.5 mg PO DAILY PRN FLUID RETENTION #0 tabs 07/06/23 mirtazapine 30 mg tablet 30 mg PO QHS sleep #0 tabs 07/06/23 finasteride 5 mg tablet 5 mg PO DAILY BPH 30 days #30 tabs 07/28/23 losartan 50 mg tablet 50 mg PO DAILY bp 30 days #30 tabs 07/28/23 ergocalciferol (vitamin D2) 1,250 mcg (50,000 unit) capsule 1,250 mcg PO QWEEK vits 09/26/23 oxybutynin chloride 10 mg tablet,extended release 24 hr 10 mg PO DAILY bladder 11/24/23 tamsulosin 0.4 mg capsule 0.4 mg PO QHS bph 11/24/23 linaclotide 145 mcg capsule (Linzess) 145 mcg PO DAILY PRN bowel 30 days #0 caps 11/27/23 furosemide 20 mg tablet 20 mg PO 1800 #0 tabs 12/12/23 carvedilol 3.125 mg tablet 3.125 mg PO BIDCM BP #180 tabs 06/03/24 acetaminophen 500 mg tablet 500 mg PO ONCE PRN pain 06/14/24 bisacodyl 5 mg tablet,delayed release (Dulcolax (bisacodyl)) 5 mg PO ONCE PRN 06/14/24 cholecalciferol (vitamin D3) 25 mcg (1,000 unit) tablet 25 mcg PO QDAY 06/14/24 furosemide 20 mg tablet 40 mg PO QAM 06/14/24 levothyroxine 25 mcg tablet 25 mcg PO MOTUWETHFR thyroid 06/14/24 nitroglycerin 0.4 mg sublingual tablet 0.4 mg sublingual Q5M PRN Cardiac/Chest Pain #25 tabs 06/14/24 denosumab 60 mg/mL subcutaneous syringe (Prolia) 60 mg subcut [id number] #1 mL 09/26/24 Allergies Allergies lisinopril Adverse Reaction (Verified 09/26/24 11:04) cough Sleep Disorder Evaluation Hx of Sleep Apnea: Yes Do you snore loudly (louder than talking or can be heard through closed doors)?: No Do you often feel tired/ fatigued/ sleepy during daytime?: No Has anyone observed you stop breathing during sleep?: No History of Hypertension (for STOP score): Yes STOP Results: Negative Medical Utilization Medical Devices Do you use a peak flow meter at home?: No Do you use a spacer device with your inhalers?: No Medical Utilization Number of hospital visits in the last year?: 0 Number of emergency room visits in the last year?: 0 Do you see your physician on a regular schedule?: Yes Advanced Directives Advanced Directives Power of Bucket Turner: Yes Living Will: Yes Advance Directives Information Provided: No Advance Directives on File: No (unsure) DNR Order?:: No Past Medical History Covid-19 Screening Physicial Symptoms Other Clinical Concerns Exposure Risk Pertinent Comorbidities Has a chronic lung disease or moderate to severe asthma:: Yes Has a serious heart condition:: Yes Medical History Past Medical History (Updated 09/26/24 @ 11:[address] Godfrey Ellis MD) Vitamin D deficiency E55.9 Closed left hip fracture S72.002A BETTY on CPAP G47.33 3L QHS SBO (small bowel obstruction) K56.609 Osteoporosis M81.0 Weakness R53.1 Primary pancreatic neuroendocrine tumor D3A.8 History of CVA (cerebrovascular accident) Z86.73 When he had CABG at [facility] and coded multiple times after surgery. 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 Ceron. EEG negative for seizures. Does not have Parkinson's disease but, he does have some features of Parkinson's which Dr. Ceron suspects is due to his medications. He is going to follow up with Dr. Ceron. 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 Since alcohol is a depressant it was likely exacerbating his underlying depression. His tremors are with intention and not at rest and they have been better since he has been off the ETOH and eating well . 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 Anxiety and depression F41.9, F32.A Alcoholism F10.20 Long standing. Low back pain M54.50 Chronic. Has not seen pain management in the past 10 years. Epidurals have not helped in the past. An appt has been made for him to see Dr. Houston on 06/07/23. Former smoker Z87.891 ICD (implantable cardioverter-defibrillator) in place Z95.810 Congestive heart failure (CHF) I50.9 Myocardial infarct I21.9 Hypertension I10 Adult failure to thrive R62.7 Due to depression compounded by ETOH abuse. Agreeable to going to community health for counselling. He sees a psychiatrist but, only for meds not counselling. Syncope R55 Pt not sure if he fell or had syncope when he sustained the vertebral compression fractures. Fatigue R53.83 Hypothyroidism E03.9 Essential hypertension I10 Non-rheumatic mitral regurgitation I34.0 Ischemic cardiomyopathy I25.5 Echocardiogram March 2023 showed a 40% ejection fraction with no multiple wall motion abnormalities. Diastology was normal. Bubble contrast was negative for right to left intra-atrial shunt. Trivial MR and trivial TR. Bifascicular block I45.2 Right bundle branch block I45.10 Bradycardia R00.1 Dyspnea on exertion R06.09 Aphonia R49.1 Dysphagia R13.10 Resolved Hyperlipidemia E78.5 Trigeminal neuralgia G50.0 BPH (benign prostatic hyperplasia) N40.0 GERD (gastroesophageal reflux disease) K21.9 CVA (cerebral vascular accident) I63.9 2018 with residual R side weakness and paresthesia in the R leg. Cardiac arrest with ventricular fibrillation I46.9, I49.01 Atherosclerotic heart disease of [place] coronary artery without angina pectoris I25.10 S/P CABG on September 28, 2017 at [facility] with BAÑUELOS to LAD, SVG to DX1, SVG sequential graft to the posterior lateral circumflex and the lateral circumflex, SVG to RCA; Surgical History Past Surgical History History of left hip hemiarthroplasty (~10/2023) Z96.642 S/P total right hip arthroplasty Z96.641 Jun 2023 History of kyphoplasty Z98.890 Dr. Rogers on 05/16/2023 History of resection and anastomosis of trachea (~04/2021) Z90.09 History of cardiac radiofrequency ablation Z98.890 Ablation of fascilular (Purkinje potrntial related) non sustained Vtach 10/09/17; Ablation of ischemic scar related PVC's and sustained Vtach 10/11/17 Aortocoronary bypass status (~09/28/17) Z95.1 CABG x5- BAÑUELOS to LAD, SVG to DX1, SVG sequential graft to the posterior lateral circumflex and the lateral circumflex, SVG to RCA 09/28/17 History of implantable cardioverter-defibrillator (ICD) placement (~11/10/17) Z95.810 Significant Family History Family History Mother Heart disease Cancer breast CAD (coronary artery disease) Breast cancer Father Colon cancer Sister Breast cancer Rheumatoid arthritis Social History Smoking History Smoking Status: Former smoker Years Smokin (social smoker stopped 20 years ago) Alcohol Use Alcohol Usage: No Substance Abuse Hx Substance Use: No Occupation Occupation (List type of work in comments):: Retired Functioning ADL/IADL Current Ability Current Ability: Dependent: Household tasks (e.g., light meal prep, laundry, shopping), Independent: Self-Care (e.g.,grooming, dressing, & bathing) and Independent: Transfer and Needs some help: Ambulation Pt Functioning Prior to Problem Prior Functioning: Self-Care (e.g.,grooming, dressing, & bathing): Independent, Ambulation: Independent, Transfer: Independent and Household tasks (e.g., light meal prep, laundry, shopping): Independent Social Environment Status Marital Status: Current Living Arrangements Living Environment:: Spouse Children How many children do you have?: 2 Do any of your children live nearby?: No Safety Do you feel safe in your surroundings?: Yes Assistance Do you need any assistance at home?: no Review of Systems Review of Systems Review of Systems Respiratory: Reports Cough, SOB at Rest, SOB upon Exertion, Wheezing, Appetite, Normal, Fatigue and Sleep, Normal; Denies Hemoptysis, Pleuritic Pain, Sputum production, Dizziness/Lightheadedness, PVD or Sexual changes Pain Is Patient Pain Free?: No Risk Factor Assessment Chief Complaint Chief Complaint: Dyspnea and respiratory abnormalities Vital Signs Pulse Rate: 56 Pulse Ox: 96 Blood Pressure: 147/69 Obesity Height: 5 ft 9 in Weight:: 216 lb Weight in Pounds: 216.0 lbs Body Mass Index (BMI): 31.8 Nutritional Referral for Obesity: No Physical Activity Physical Inactivity: Reg Exercise 30 min/day Risk Stratification Risk Guidelines: Lowest Risk: Risk Factor for Smoking, Moderate Risk: Risk Factor for Diabetes and Highest Risk: Risk Factor for Dyslipidemia, Risk Factor for Obesity, Risk Factor for Hypertension, Risk Factor for Sedentary Lifestyle and Risk Factor for Depression For Smoking Smoking Risk Guidelines For Dyslipidemia Dyslipidemia Risk Guidelines For Diabetes Mellitus Diabetes Risk Guidelines For Obesity/Overweight Obesity/Overweight Risk Guidelines For Hypertension Hypertension Risk Guidelines For Sedentary Lifestyle Sedentary Lifestyle Risk Guidelines For Depression Depression Risk Guidelines Motivation Motivation to Participate On a scale of 1 to 10, how prepared are you to commit to attending program?: 8 What do you see as barriers to successfully being able to complete the program?: nothing What do you see as the benefits of succesfully completing the program? In other words, what do you hope to get out of participating in the program?: breath better Are there issues you are dealing with that will interfere with completing the program?: no Do you have a spouse or signficant other, family or friends who will help support you to complete the program?: yes Diagnostic Data Review Pulmonary Function Test FEV1:: 57 FVC:: 51 FEV1/FVC%:: 108
[2024-11-14 13:10] VITALS: BP 147/69; PULSE 56; O2SAT 96
--- NOTE | 2024-11-14 13:48 | PCM.PR.TP ---
General Information2 General Information Admitting Diagnosis: Dyspnea and respiratory abnormalities PFT FEV1:: 57 FVC:: 51 FEV1/FVC%:: 108 Personal Learning Style/Barriers Personal Learning Style:: Audio/Visual Barriers to Learning: Low literacy Stage of change r/t lifestyle modifications: Contemplation Education/Goals SC Patient Goals: Increase muscle strength: Initial Assessment, Experience less dyspnea: Initial Assessment, Improve energy level: Initial Assessment, Participate in home exercise: Initial Assessment, Improve the ability to cope with ADLs: Initial Assessment, Improve knowledge of lung disease: Initial Assessment, Improve diet and nutrition: Initial Assessment and Improve my quality of life: Initial Assessment Exercise - Initial Assessment Visit Date of Eval: 11/14/24 (initial eval ) Problem/Goals Goals:: Aerobic exercise 30-60 mins x 12 weeks [36 sessions] Physician Prescribed Exercise Modalities: Rosalba Kaur AD-7, SciFit Stepper, LuxeraFit Pro-II Ergometer and LuxeraFit Lateral [place] Frequency (days/week): 3 Duration (Minutes):: 30-45 Intensity: 60-80% of age predicted maximum heart rate reserve Current METSs:: 2 Target HR:: 111 (89-111) Resting Blood Pressure: 147/69 EKG Type: SR with 1st degree AV block, RBBB Plan Plan and Plan to Review:: Benefits of exercise, Core components of exercise, How to measure dyspnea level, How to monitor dyspnea level, Exercise intensity, Exercise safety guideline, Home exercise guidelines and Srinivas: 3-4/11-13 Home Exercise Mode: Other (goes to gym 3 days a week) Nutrition/Wt Mgmt - Initial Visit Date of Eval: 11/14/24 (initial eval ) Problems/Goals Goals: Wt Loss 1-2 lbs per week Weight Management Admit Height:: 5 ft 9 in Admit Weight:: 216 lb Admit BMI:: 31.8 Intervention Referral to dietitian:: No (pt sees a reports analyst at another facility) Will attend diet classes:: Yes Intervention/Plan: Instruct on ideal BMI & set weight loss goal w/patient, Assist pt to ID & incorporate diet changes for weight loss by S9, Refer to Structured Weight Loss program as appropriate, Encourage goal of using 250-300dcal per session for weight loss and Other additional plan/interventions Plan Nutrition Plan: Yes: Review BMI or WC & identify target wt & strategies for wt control, Yes: Nutrition education class:, Yes: Medication education class [Prednisone]:, Yes: Weight control education class:, Yes: Education re: Need for ongoing weight monitoring, Yes: Food diary: and Yes: Physical activity log: Nutrition/Wt Mgmt - 30-Day Weight Management Height: 5 ft 9 in Weight:: 216 lb BMI: 31.8 Nutrition/Wt Mgmt - 60-Day Weight Management Height: 5 ft 9 in Weight:: 216 lb BMI: 31.8 Nutrition/Wt Mgmt - 90-Day Weight Management Height: 5 ft 9 in Weight:: 216 lb BMI: 31.8 Nutrition/Wt Mgmt - Final Weight Management Height: 5 ft 9 in Weight:: 216 lb BMI: 31.8 Psychosocial - Initial Assess Visit Date of Eval: 11/14/24 (initial eval ) Problems/Goals History of Emotional Disorders: Anxious and Depression (Pt is on meds for depression and anxiety) Psychosocial Goals: 1. Patient is free from overwhelming symtoms of depression (or anxiety, 2. Identifies personal stressors & states the strategies for managing, 3. Identifies activities to decrease isolation and/or symptoms of, 4. Improved psychosocial coping skills., 5. Verbalizes coping strategies., 6. Adequate treatment of depression. and 7. Improved Q.O.L. Psychosocial Test Tool Used:: Pulmonary QOL and PHQ-9 Questionnaire Referred to MD for counseling:: No Referral to Behavioral Health PS - Interventions: Yes: Attend Stress Management Classes Intervention/Plan: See List Interventions/Plan:: Assess stressors,coping strategies & signs of derpression on admission, Instruct/assist pt to develop coping & personal stress Mgt strategies, Refer to Behavioral Health if appropriate, Refer to Physician if appropriate, Instruct patient to recognize signs & symptoms of depression, Instruct patient to recog and Other additional plan/intervention Psychosocial - 30-Day Problems/Goals History of Emotional Disorders: Anxious and Depression (Pt is on meds for depression and anxiety) Psychosocial Goals: 1. Patient is free from overwhelming symtoms of depression (or anxiety, 2. Identifies personal stressors & states the strategies for managing, 3. Identifies activities to decrease isolation and/or symptoms of, 4. Improved psychosocial coping skills., 5. Verbalizes coping strategies., 6. Adequate treatment of depression. and 7. Improved Q.O.L. Psychosocial Test Tool Used:: Pulmonary QOL and PHQ-9 Questionnaire Referred to MD for counseling:: No Referral to Behavioral Health PS - Interventions: Yes: Attend Stress Management Classes Plan Interventions/Plan:: Assess stressors,coping strategies & signs of derpression on admission, Instruct/assist pt to develop coping & personal stress Mgt strategies, Refer to Behavioral Health if appropriate, Refer to Physician if appropriate, Instruct patient to recognize signs & symptoms of depression, Instruct patient to recog and Other additional plan/intervention Psychosocial - 60-Day Problems/Goals History of Emotional Disorders: Anxious and Depression (Pt is on meds for depression and anxiety) Psychosocial Goals: 1. Patient is free from overwhelming symtoms of depression (or anxiety, 2. Identifies personal stressors & states the strategies for managing, 3. Identifies activities to decrease isolation and/or symptoms of, 4. Improved psychosocial coping skills., 5. Verbalizes coping strategies., 6. Adequate treatment of depression. and 7. Improved Q.O.L. Psychosocial Test Tool Used:: Pulmonary QOL and PHQ-9 Questionnaire Referred to MD for counseling:: No Referral to Behavioral Health PS - Interventions: Yes: Attend Stress Management Classes Plan Interventions/Plan:: Assess stressors,coping strategies & signs of derpression on admission, Instruct/assist pt to develop coping & personal stress Mgt strategies, Refer to Behavioral Health if appropriate, Refer to Physician if appropriate, Instruct patient to recognize signs & symptoms of depression, Instruct patient to recog and Other additional plan/intervention Psychosocial - 90-Day Problems/Goals History of Emotional Disorders: Anxious and Depression (Pt is on meds for depression and anxiety) Psychosocial Goals: 1. Patient is free from overwhelming symtoms of depression (or anxiety, 2. Identifies personal stressors & states the strategies for managing, 3. Identifies activities to decrease isolation and/or symptoms of, 4. Improved psychosocial coping skills., 5. Verbalizes coping strategies., 6. Adequate treatment of depression. and 7. Improved Q.O.L. Psychosocial Test Tool Used:: Pulmonary QOL and PHQ-9 Questionnaire Referred to MD for counseling:: No Referral to Behavioral Health PS - Interventions: Yes: Attend Stress Management Classes Plan Interventions/Plan:: Assess stressors,coping strategies & signs of derpression on admission, Instruct/assist pt to develop coping & personal stress Mgt strategies, Refer to Behavioral Health if appropriate, Refer to Physician if appropriate, Instruct patient to recognize signs & symptoms of depression, Instruct patient to recog and Other additional plan/intervention Psychosocial - Final Assess Problems/Goals History of Emotional Disorders: Anxious and Depression (Pt is on meds for depression and anxiety) Psychosocial Goals: 1. Patient is free from overwhelming symtoms of depression (or anxiety, 2. Identifies personal stressors & states the strategies for managing, 3. Identifies activities to decrease isolation and/or symptoms of, 4. Improved psychosocial coping skills., 5. Verbalizes coping strategies., 6. Adequate treatment of depression. and 7. Improved Q.O.L. Psychosocial Test Tool Used:: Pulmonary QOL and PHQ-9 Questionnaire Referred to MD for counseling:: No Referral to Behavioral Health PS - Interventions: Yes: Attend Stress Management Classes Plan Interventions/Plan:: Assess stressors,coping strategies & signs of derpression on admission, Instruct/assist pt to develop coping & personal stress Mgt strategies, Refer to Behavioral Health if appropriate, Refer to Physician if appropriate, Instruct patient to recognize signs & symptoms of depression, Instruct patient to recog and Other additional plan/intervention Oxygen & Oxygen Titration Init Visit Date of Eval: 11/14/24 (initial eval ) Initial Assessment Oxygen on Admission: None Patient Reports:: Non-productive cough Plans Plan: Monitor SpO2 rest & with exercise Reviewed prescribed medications:: Purpose, Schedule and Importance of compliance Instruct correct technique/timing & care:: MDI, DPI, Nebulizer and Return demo use of inhaler Bronchial Hygiene Plan: Controlled cough, CPT, Vibratory PEP device, VEST, Role of exercise in secretion clearance, NS Nasal spray, Hydration, Hand hygiene, Evaluate sputum, When to call MD, Signs/symptoms to report:, Influenza/Pneumovax vaccines and Cleaning of respiratory equipment Core Components - Initial Visit Date of Eval: 11/14/24 (initial eval ) Hypertension Hypertension Diagnosis:: Hypertension ICD-10 I10 BP: 147/69 [place] [employer] Hypertension Guidelines Outcomes/Goals: Able to verbalize/achieve optimal blood pressure <130/80 and Incorporates diet changes & exercise for blood pressure control by DC Tobacco - Initial Assessment Tobacco Program Goals Tobacco Use: Non-smoker How long ago did you quit using tobacco products?: Greater than or equal to 6 months ago Years Smokin (pt was a social smoker and stopped 20 years ago) Do you use smokeless tobacco?: No Smoking Cessation Referral:: No Individual Education/Counseling:: Yes Education Schedule Given:: Yes Gave Education Materials For:: Tobacco Triggers, Pulmonary Disease, Risk Factors, Breathing Techniques, Medical Compliance, Pulmonary A&P, Exacerbation Signs & Symptoms and Stress & Relaxation Exacerbation Mgmt & Airway Clearance Patient Reports:: Non-productive cough Plan: Monitor SpO2 rest & with moisture meter operator correct technique/timing & care:: MDI, DPI, Nebulizer and Return demo use of inhaler Bronchial Hygiene Plan: Controlled cough, CPT, Vibratory PEP device, VEST, Role of exercise in secretion clearance, NS Nasal spray, Hydration, Hand hygiene, Evaluate sputum, When to call MD, Signs/symptoms to report:, Influenza/Pneumovax vaccines and Cleaning of respiratory equipment Medication Interventions/plans: Instruct on medication effects & side effects, Review medication list w/patient every two weeks and Instruct importance of taking meds as ordered & assist problem solving Medication Goals: Adherence to prescribed medications and Correct technique/timing & care of MDI, DPI, nebulizer, and spacer. Does pt report taking home meds as prescribed?: Yes Reviewed prescribed medications:: Purpose, Schedule and Importance of compliance Diabetes Diabetes:: No Referral to dietitian:: No (pt sees a reports analyst at another facility) Referral to Diabetic Clinic:: No Will attend diet classes:: Yes Core Components - 30 DAYS Hypertension Hypertension Diagnosis:: Hypertension ICD-10 I10 Resting Blood Pressure:: 147/69 [place] [employer] Hypertension Guidelines Outcomes/Goals: Able to verbalize/achieve optimal blood pressure <130/80 and Incorporates diet changes & exercise for blood pressure control by DC Tobacco - 30-Day Tobacco Program Goals Tobacco Use: Non-smoker Do you use smokeless tobacco?: No Smoking Cessation Referral:: No Education Schedule Given:: Yes Gave Education Materials For:: Tobacco Triggers, Pulmonary Disease, Risk Factors, Breathing Techniques, Medical Compliance, Pulmonary A&P, Exacerbation Signs & Symptoms and Stress & Relaxation Diabetes Diabetes:: No Core Components - 60 DAYS Hypertension Hypertension Diagnosis:: Hypertension ICD-10 I10 Resting Blood Pressure:: 147/69 [place] [employer] Hypertension Guidelines Outcomes/Goals: Able to verbalize/achieve optimal blood pressure <130/80 and Incorporates diet changes & exercise for blood pressure control by DC Tobacco - 60-Day Tobacco Program Goals Tobacco Use: Non-smoker Do you use smokeless tobacco?: No Smoking Cessation Referral:: No Individual Education/Counseling:: Yes Education Schedule Given:: Yes Gave Education Materials For:: Tobacco Triggers, Pulmonary Disease, Risk Factors, Breathing Techniques, Medical Compliance, Pulmonary A&P, Exacerbation Signs & Symptoms and Stress & Relaxation Diabetes Diabetes:: No Core Components - 90 DAYS Hypertension Hypertension Diagnosis:: Hypertension ICD-10 I10 Resting Blood Pressure:: 147/69 [place] [employer] Hypertension Guidelines Outcomes/Goals: Able to verbalize/achieve optimal blood pressure <130/80 and Incorporates diet changes & exercise for blood pressure control by DC Tobacco - 90-Day Tobacco Program Goals Tobacco Use: Non-smoker Do you use smokeless tobacco?: No Smoking Cessation Referral:: No Individual Education/Counseling:: Yes Education Schedule Given:: Yes Gave Education Materials For:: Tobacco Triggers, Pulmonary Disease, Risk Factors, Breathing Techniques, Medical Compliance, Pulmonary A&P, Exacerbation Signs & Symptoms and Stress & Relaxation Diabetes Diabetes:: No Core Components - Final Hypertension Hypertension Diagnosis:: Hypertension ICD-10 I10 Resting Blood Pressure:: 147/69 [place] [employer] Hypertension Guidelines Outcomes/Goals: Able to verbalize/achieve optimal blood pressure <130/80 and Incorporates diet changes & exercise for blood pressure control by DC Tobacco - Final Tobacco Program Goals Tobacco Use: Non-smoker Do you use smokeless tobacco?: No Smoking Cessation Referral:: No Individual Education/Counseling:: Yes Education Schedule Given:: Yes Diabetes Diabetes:: No Patient Health Questionnaire PHQ-9 Screening Initial Assessment: 1. Little interest or pleasure in doing things: Not at all 2. Feeling down, depressed, or hopeless: Not at all 3. Trouble falling or staying asleep, or sleeping too much: Not at all 4. Feeling tired or having little energy: Several days 5. Poor appetite or overeating: Not at all 6. Feeling bad about yourself -- or that you are a failure or have let yourself or your family down: Not at all 7. Trouble concentrating on things, such as reading the newspaper or watching television: Not at all 8. Moving or speaking so slowly that other people could have noticed. Or the opposite - being so fidgety or restless that you have been moving around a lot more than usual: More than half the days 9. Thoughts that you would be better off , or of hurting yourself in some way: Not at all How difficult have these problems made it for you to do your work, take care of things at home, or get along with other people?: Somewhat difficult Total Score: 3 Knowledge Questionaire (BCKQ) Information Information: [place] COPD Knowledge Questionnaire (BCKQ) This questionnaire is designed to find out what you know about your lung problem. It should be completed without help form anyone else. This usually takes between 10 and 20 minutes. Your answers will help us to find out what information you need to help you to understand and manage your lung condition. Z[place]ib the [place] which you think is the correct answer. COPD Assessment Test [CAT] Questions Never cough = 0, Cough all the time = 5: 3 No phlegm = 0, Chest full of phlegm = 5: 0 No chest tightness = 0, Chest very tight = 5: 2 No breathless w/exertion = 0, Very breathless w/exertion = 5: 5 No limitations w/activity = 0, Very limited w/activity = 5: 5 Confident leaving home = 0, Not at all confident = 5: 1 Sleep soundly = 0, Don't sleep soundly = 5: 0 Lots of energy = 0, No energy at all = 5: 4 Total CAT score:: 20 Self-Efficacy 6-Item Scale Initial Assessment: We would like to know how confident you are in doing certain activities. Please select your confidence level for: Fatigue Select Number: 1 Physical Discomfort or Pain Select Number: 1 Emotional Distress Select Number: 7 Other Symptoms or Health Problems Select Number: 1 Different Tasks and Activities Select Number: 1 Medication Select Number: 1 Total Score:: 2 Nutrition Survey Nutrition Survey Instructions Scoring Instructions Nutrition Survey Initial: Have you lost >10 lbs over the past 2 months without trying?: No Are you following a special diet at home for diabetes, low fat, or low salt?: Yes Are you interested in meeting with a dietitian for help understanding your diet?: Yes Do you eat less than 3 meals a day?: Yes Do you eat fatty meats (machuca, sausage, ribs, etc), fried foods, desserts, large amounts of salad dressings, margarine, butter, or cheese most days?: Yes Do you have food allergies? [Enter types in comment field]: No Do you eat in restaurants more than 3 times a week?: Yes Do you season food with salt, seasoning salt, or garlic salt?: No Do you used canned, boxed, frozen meals, or soups, seasoning packets?: No Total Score:: 5
[2024-11-14 14:04] VITALS: BP 147/69; BMI 31.8
[2024-11-14 14:05] VITALS: BMI 31.8
== END | disposition home or self-care (01) ==
PROVIDERS: PCP Physician Assistant
DX: R06.00 Dyspnea, unspecified (principal); R06.89 Other abnormalities of breathing; J39.8 Other specified diseases of upper respiratory tract; R13.10 Dysphagia, unspecified

== ENCOUNTER 2024-11-20 10:15 | Outpatient (RCR) | payer MEDICARE, BC, SELFPAY ==
[2024-11-14 14:04] VITALS: BMI 31.8
== END 2024-11-22 23:59 ==
LOC: PR 10:15
PROVIDERS: PCP Physician Assistant
DX: R06.89 Other abnormalities of breathing (principal); E13.10 Other specified diabetes mellitus with ketoacidosis without coma; J39.8 Other specified diseases of upper respiratory tract; R06.00 Dyspnea, unspecified
CPT/HCPCS: 97150; G0239

== ENCOUNTER → 2025-01-03 | Outpatient (CLI) | payer MEDICARE, BC, SELFPAY ==
[2024-11-14 14:04] VITALS: BMI 31.8
--- NOTE | 2025-01-03 13:56 | ECHOCS_ITS ---
Reason For Study Reason For Study: CAD/ASHD Procedure This was a 2D Doppler, Color Flow transthoracic echocardiogram. The study was technically difficult. Contrast injection was performed. Exam performed in department. Left Ventricle Normal size and thickness. Inferior septal hypokinesis. Estimated LVEF 50 to 55%. Stage I diastolic dysfunction. Right Ventricle Normal right ventricle. Atria The left and right atria are normal. Mitral Valve Trivial mitral valve insufficiency. Tricuspid Valve Normal tricuspid valve. Aortic Valve Trisinus/trileaflet aortic valve. Pulmonic Valve The pulmonic valve is not well visualized. Mild (1+) pulmonic valve insufficiency. Great Vessels Normal sized aortic root. Pericardium/Pleural No pericardial effusion. Medication 22 gauge I.V. with prn adaptor inserted into right arm. Diluted definity 2ml given slow IV push to enhance endocardial definition. MMode/2D Measurements & Calculations LVIDd: 5.1 cm IVSd: 1.1 cm LVOT diam: 2.2 cm LVIDs: 4.1 cm LVPWd: 1.5 cm FS: 19.1 % LVOT area: 3.7 cm2 Ao root diam: 3.6 cm LAV(MOD-sp4): 73.7 ml LVAd ap4: 40.4 cm2 LVLd ap4: 8.7 cm EDV(MOD-sp4): 153.2 ml EDV(sp4-el): 159.9 ml LVAs ap4: 28.7 cm2 LVLs ap4: 7.8 cm ESV(MOD-sp4): 92.5 ml ESV(sp4-el): 89.9 ml EF(MOD-sp4): 39.6 % EF(sp4-el): 43.8 % SV(MOD-sp4): 60.7 ml SV(sp4-el): 70.0 ml LA A4 area: 22.1 cm2 SI(MOD-sp4): 28.5 ml/m2 LA dimension(2D): 4.7 cm RA A4 area: 11.8 cm2 Time Measurements MV dec time: 0.20 sec Doppler Measurements & Calculations MV E max gibran: 58.2 cm/sec Lat Peak E' Gibran: 10.4 cm/sec Med Peak E' Gibran: 7.6 cm/sec MV A max gibran: 57.7 cm/sec E/E' lat: 5.6 E/E' med: 7.6 MV E/A: 1.0 MV V2 max: 70.8 cm/sec MV dec slope: 287.5 cm/sec2 Ao V2 max: 113.9 cm/sec MV max P.0 mmHg Ao max P.2 mmHg MV V2 mean: 47.0 cm/sec Ao V2 mean: 77.0 cm/sec MV mean P.97 mmHg Ao mean P.8 mmHg MV V2 VTI: 31.4 cm Ao V2 VTI: 23.6 cm MVA(VTI): 2.6 cm2 AV (velocity ratio): 0.92 JEFFERY(I,D): 3.4 cm2 JEFFERY(V,D): 3.3 cm2 LV V1 max: 100.8 cm/sec SV(LVOT): 80.9 ml PA V2 max: 82.1 cm/sec LV V1 max P.1 mmHg PA V2 mean: 60.7 cm/sec LV V1 mean P.0 mmHg LV V1 mean: 64.8 cm/sec LV V1 VTI: 21.7 cm ECHO/Echo Complete W/ Contrast Interpretation Summary Inferior septal hypokinesis. Estimated LVEF 50 to 55%. Stage I diastolic dysfun ction. Mild (1+) pulmonic valve insufficiency. The study was technically difficult. Ordering Physician: Mark Johnson Referring Physician: Mark Johnson Performed By: Sheree Richter RCS
== END | disposition home or self-care (01) ==
PROVIDERS: PCP Physician Assistant; Referring Provider Internal Medicine Cardiovascular Disease; Visit Provider Internal Medicine Cardiovascular Disease
DX: I25.10 Atherosclerotic heart disease of native coronary artery without angina pectoris (principal)
CPT/HCPCS: 93306; Q9957; A4216; C8929

== ENCOUNTER → 2025-02-25 | Outpatient (CLI) | payer MEDICARE, BC, SELFPAY ==
[2024-11-14 14:04] VITALS: BMI 31.8
--- NOTE | 2025-02-25 13:17 | MRI_ITS ---
PROCEDURE: SPINE LUMBAR (ROUTINE) 02/25/2025 REASON FOR EXAM: RADICULOPATHY TECHNIQUE: Multiplanar and multisequence images were obtained without IV contrast administration. COMPARISON: Lumbar spine MRI of 07/11/2023. FINDINGS: Vertebrae: Previous kyphoplasties at T12 and L1 again noted. No acute osseous signal change is seen. Alignment: No evidence of spondylolysis or significant spondylolisthesis. Conus Medullaris: At the level of L1, without apparent abnormality. On sagittal images, lumbar spine disc degeneration is similar in appearance to the prior study of 07/11/2023, with at least mild disc narrowing at L5-S1, and moderate disc narrowing at L4-L5. Probable mild disc narrowing also at L3-L4. Compared with the prior examination, only very slight interval worsening of degenerative disc disease is seen. T11-T12: No significant spinal canal stenosis or neural foraminal narrowing is seen. T12-L1: No significant spinal canal stenosis or neural foraminal narrowing is seen. L1-2: No significant spinal canal stenosis or neural foraminal narrowing is seen. L2-3: A slight disc bulge is noted. No spinal canal stenosis or neural foraminal narrowing is evident. L3-4: A mild broad-based disc protrusion is seen. At least mild right neural foraminal narrowing is also seen, in the presence of posterior facet hypertrophy. No significant spinal canal stenosis is noted. L4-5: Mild to moderate uncovertebral joint hypertrophy is seen. No significant disc bulge or herniation is seen. Probable mild right neural foraminal narrowing. No significant spinal canal stenosis is seen. L5-S1: A mild central disc protrusion is seen. No significant spinal canal stenosis or neural foraminal narrowing is noted. Sacrum: No significant abnormality seen upon limited imaging. MRI/Spine Lumbar (Routine) IMPRESSION: 1. Multilevel lumbar degenerative disc disease, as described. 2. No significant spinal canal stenosis. 3. Previous T12 and L1 kyphoplasties. Reading Location: [id number]
[2025-02-25 13:57] VITALS: BP 136/73; PULSE 57; RESP 16; O2SAT 92
[2025-02-25 14:07] VITALS: BP 147/72; PULSE 56; RESP 16; O2SAT 94
[2025-02-25 14:17] VITALS: BP 133/82; PULSE 56; RESP 16; O2SAT 94
[2025-02-25 14:29] VITALS: BP 159/76; PULSE 60; RESP 16; O2SAT 94
== END | disposition home or self-care (01) ==
LOC: OPMRI 12:55
PROVIDERS: PCP Physician Assistant; Referring Provider Student in an Organized Health Care Education/Training Program; Visit Provider Student in an Organized Health Care Education/Training Program
DX: M54.16 Radiculopathy, lumbar region (principal)
CPT/HCPCS: 72148

== ENCOUNTER → 2025-03-11 | Outpatient (CLI) | payer MEDICARE, BC, SELFPAY ==
[2024-11-14 14:04] VITALS: BMI 31.8
[2025-03-11 14:50] LABS: Vitamin D,25 Hydroxy 64.3 ng/mL (30-100)
== END | disposition home or self-care (01) ==
LOC: LAB 12:39
PROVIDERS: PCP Physician Assistant; Referring Provider Internal Medicine Endocrinology, Diabetes & Metabolism; Visit Provider Internal Medicine Endocrinology, Diabetes & Metabolism
DX: E03.9 Hypothyroidism, unspecified (principal); E55.9 Vitamin D deficiency, unspecified
CPT/HCPCS: 82306; 84439; 84443